=== PATIENT | female | born 2000 | race Caucasian/White ===

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

== ENCOUNTER 2020-01-22 20:09 | Emergency (ER) | payer MEDICAID, SELFPAY ==
[2020-01-22 20:10] VITALS: BP 106/57; PULSE 69; RESP 19; TEMP 36.5; O2SAT 100; BMI 17.6
--- NOTE | 2020-01-22 20:37 | ED.DCSUM_ITS ---
History of Present Illness Chief Complaint: Nausea/Vomiting Informant: Patient Onset: Days Context: Gradual Onset Current Severity: Mild Maximum Severity: Mild Narrative: Patient presents with a 3 to 4-day history of nausea and vomiting. She is currently 7 weeks . She is G2, P1, Ab0. She does report significant problems with nausea and vomiting during her first . She is not currently on any nausea medication at home. She denies abdominal cramping, spotting. Past Medical History - Allergies and Home Meds Allergies/Adverse Reactions: Allergies Penicillins Allergy (Verified 01/22/20 20:10) Rash Primary Care Physician: Ai Freeman ENDLESS TRACK VEHICLE MECHANIC, ENDLESS TRACK VEHICLE MECHANIC-C [Primary Care Provider] - Past Medical History: None Smoking Status: Never smoker Review of Systems General: Denies: Chills, Fever Eyes: Denies: Visual changes - bilaterally ENT: Denies: Bilateral ear pain Cardiovascular: Denies: Chest pain Respiratory: Denies: Dyspnea, Cough Gastrointestinal: Reports: Nausea, Vomiting. Denies: Abdominal pain, Diarrhea Genitourinary: Denies: Dysuria, Frequency Musculoskeletal: Denies: Extremity Pain Skin: Denies: Rash Neurological: Denies: Headache Hematologic: Denies: Easy bruising, Easy bleeding Allergy: Denies: Uticaria Physical Exam Vital Signs/Narrative: Vital Signs Temp Pulse Resp BP Pulse Ox 01/22/20 20:10 97.7 F L 69 19 H 106/57 L 100 Inital Vital Signs reviewed: Yes General: Well nourished, Well developed Head: Normocephalic ENT: Moist mucous membranes Neck: Supple Cardiovascular: Regular rate, Regular rhythm Respiratory: No distress, CTA bilaterally Abdomen: Soft, Nontender, Hypoactive bowel sounds Skin: Normal color Neurological: Alert, Oriented x3 Psychological: Normal affect Diagnostic/Tx/Re-eval Laboratory Results 01/22/20 21:05 Sodium 139 Potassium 3.6 Chloride 108 H Carbon Dioxide 26.0 Anion Gap 5 BUN 10 Creatinine 0.71 Estim Creat Clear Calc 90.39 Est GFR (MDRD) Af Amer 135 Est GFR (MDRD) Non-Af 111 BUN/Creatinine Ratio 14.1 Glucose 85 Calcium 9.5 - Medical Decision Making Patient was given a liter IV fluids along with 4 mg of IV Zofran. On repeat evaluation she reports feeling much improved. She is able to tolerate ice chips at this time. She began a prescription for Zofran that she will pick up man in the morning. ED Disposition - Plan for ED Patient: Disposition: Home or Assisted Living Diagnosis: Vomiting during Instructions: ED Vomiting (Adult) Prescriptions: Ondansetron [Zofran Odt] 4 mg PO Q8H PRN PRN #20 tab PRN Reason: Nausea Transmission Status: Pending to [id number] Referrals: Kierra Carlos DO [STAFF PHYSICIAN] - 1 Week if not improving
[2020-01-22] MEDS: 0.9% Normal Saline 1,000 ML 1000 ML IV (21:06)
[2020-01-22] MEDS: Ondansetron 4 MG/2 ML Vial IV (21:06)
[2020-01-22 21:29] LABS: Anion Gap 5 (5-15); BUN 10 mg/dL (7-18); BUN/Creat Ratio 14.1 RATIO (10-20); Calcium,Total 9.5 mg/dL (8.5-10.1); Chloride 108 mmol/L (98-107); Creatinine, Serum 0.71 mg/dL (0.55-1.02); EST Glomerular Filtration Rate 111 mL/min (>60); Est Glom Filt Rate - Afr Amer 135 mL/min (>60); Estimated Creatinine Clearance 90.39 ml/min; Glucose 85 mg/dL (74-106); Potassium 3.6 mmol/L (3.5-5.1); Sodium Level 139 mmol/L (136-145)
[2020-01-22 22:20] VITALS: BP 95/63; PULSE 59; RESP 17; O2SAT 100
== END 2020-01-22 22:22 | disposition home or self-care (01) ==
PROVIDERS: Emergency Provider Emergency Medicine; PCP Nurse Practitioner Family
DX: O21.9 Vomiting of pregnancy, unspecified (principal); Z3A.01 Less than 8 weeks gestation of pregnancy
CPT/HCPCS: 80048; 96361; 96374; 99283; J7030; A4216; J2405

== ENCOUNTER 2020-02-07 15:14 | Emergency (ER) | payer MEDICAID, SELFPAY ==
[2020-02-07 15:15] VITALS: BP 109/65; PULSE 66; RESP 16; TEMP 36.4; O2SAT 100; BMI 17.6
--- NOTE | 2020-02-07 15:25 | EKG12_ITS ---
Test Reason : Blood Pressure : / mmHG Vent. Rate : 059 BPM Atrial Rate : 059 BPM P-R Int : 132 ms QRS Dur : 078 ms QT Int : 406 ms P-R-T Axes : 057 078 062 degrees QTc Int : 401 ms Sinus bradycardia Otherwise normal ECG Confirmed by SARAH DAVIS, GERALDO ([id number]), subeditor UNURLY PALOMINO ([id number]) on 02/14/2020 10:26:05 AM Referred By: CARO Confirmed By:JOSE SMITH MD
--- NOTE | 2020-02-07 15:28 | NURSING ---
NO OLD EKGS
--- NOTE | 2020-02-07 15:40 | ED.DCSUM_ITS ---
- ER Visit Summary Date of Service: 02/07/20 Chief Complaint: Syncope History of Present Illness: The patient is a [address] Carlos and Dr. Freeman. She is a G2, P1 at 9 weeks of . She reports that she has had vomiting 5-6 times a day throughout her first trimester. She is states there is been no blood in her emesis. Patient reports that laying down today she began to feel nauseated. She sat up for 2 minutes to see if she was going to vomit and then stood to walk to the bathroom and had a syncopal episode. She reports that prior to this he did feel as though her heart was racing. She denies any chest pain shortness of breath. She is not diaphoretic. She has had this previously. Patient reports that she did hit her head. She has an occipital headache that is 5 out of 10 in severity. She denies extremity injury. She denies neck or back pain. She denies abdominal pain or diarrhea. She denies any vaginal bleeding or discharge. Her review of systems is otherwise negative. Physical Examination: Vitals: Stable. Afebrile. General: Well-nourished and well-developed. Head: Normocephalic atraumatic. Neck: Supple, no lymphadenopathy. No JVD. Nontender. Cardiovascular: Regular rate and rhythm. No murmurs. Respiratory: No respiratory distress. Clear to auscultation bilaterally. Abdominal: Soft, nontender, nondistended, normal bowel sounds. No guarding, rebound, or peritoneal signs. Back: Nontender. Extremities: Nontender, no edema. Skin: Normal color, no rash. Neurologic: Alert and oriented ?3. Cranial nerves II through XII are intact. Normal strength and sensation. Psych: Normal affect. Test Results: EKG is sinus bradycardia at 59. Normal intervals. No evidence of Brugada syndrome or HOCM. CBC is normal. Chem-7 is normal. Emergency Department Course and Treatment: Patient had an IV placed. She was given a liter of normal saline. Orthostatic vital signs were positive. heart tones could not be obtained. Bedside ultrasound showed a good hea rtbeat. Treatment Plan: Patient will be discharged prescription for Reglan. Instructed to follow-up with Dr. Fajardo in 1 to 2 days if not improving. Follow-up with her primary care physician in 3 to 5 days for another exam. Disposition: To home in improved and stable condition. Impression: 1. Syncope. 2. First trimester . 3. Vomiting. This note was generated with [employer] dictation software. It may contain incorrect words, spelling, and punctuation that were not noted in review of the chart prior to signing ED Disposition - Plan for ED Patient: Instructions: ED Hypotension, Orthostatic Prescriptions: Metoclopramide [Reglan] 10 mg PO 4X/DAY PRN #20 tab PRN Reason: Nausea Prescription Printed Referrals: Ai Freeman NP, COMPACTING MACHINE OPERATOR/TENDER-C [Primary Care Provider] - 3-5 Days Kierra Carlos DO [STAFF PHYSICIAN] - 1-2 Days if not improving
[2020-02-07] MEDS: 0.9% Normal Saline 1,000 ML 1000 ML IV (15:49)
[2020-02-07 16:01] LABS: Absolute Lymphocyte Count 2.29 X10^3/uL (0.83-4.51); Basophil# 0.04 X10^3/uL; Basophil% 0.4 % (0-1); Eosinophil# 0.05 X10^3/uL; Eosinophils% 0.5 % (0-5); Hematocrit 40.8 % (37-47); Hemoglobin 13.4 g/dL (12.0-15.0); Lymphocyte # 2.29 X10^3/ul (4.0); Lymphocyte % 24.7 % (19-41); Mean Corp Hgb Conc 32.8 g/dL (32-36); Mean Corpuscular Hgb 28.5 pg (27.0-32.0); Mean Corpuscular Volume 86.8 fL (81-99); Mean Platelet Vol. 10.2 fl (6.2-12.0); Monocyte# 0.83 X10^3/uL; Monocyte% 8.9 % (0-10); NRBC Flagged by Analyzer 0 % (0-5); Neutrophil # 6.03 X10^3/uL (2.7-7.7); Neutrophil % 65.1 % (47-70); Platelet Count 305 K/mm3 (150-450); RBC Distribution Width CV 13.3 % (11.6-14.6); RBC Distribution Width SD 42.3 fl (35.1-43.9); White Blood Count 9.3 K/mm3 (4.4-11.0)
[2020-02-07 16:12] LABS: Anion Gap 6 (5-15); BUN 7 mg/dL (7-18); Chloride 106 mmol/L (98-107); Creatinine, Serum 0.58 mg/dL (0.55-1.02); EST Glomerular Filtration Rate 139 mL/min (>60); Est Glom Filt Rate - Afr Amer 168 mL/min (>60); Estimated Creatinine Clearance 110.79 ml/min; Glucose 81 mg/dL (74-106); Potassium 3.6 mmol/L (3.5-5.1); Sodium Level 138 mmol/L (136-145)
[2020-02-07 16:21] VITALS: BP 90/65; BP 93/55; BP 93/65; PULSE 56; PULSE 61; PULSE 74
[2020-02-07] MEDS: 0.9% Normal Saline 1,000 ML 999 ML IV (17:42)
[2020-02-07 18:15] VITALS: BP 88/52; PULSE 51; RESP 14; O2SAT 100
[2020-02-07 19:37] VITALS: BP 97/63; PULSE 61; RESP 12; O2SAT 100
[2020-02-07 20:28] VITALS: BP 95/67; PULSE 59; RESP 13; O2SAT 100
== END 2020-02-07 20:29 | disposition home or self-care (01) ==
LOC: ED 16:32
PROVIDERS: Emergency Provider Emergency Medicine; PCP Nurse Practitioner Family
DX: O26.891 Other specified pregnancy related conditions, first trimester (principal); R55 Syncope and collapse; O21.9 Vomiting of pregnancy, unspecified; Z3A.09 9 weeks gestation of pregnancy
CPT/HCPCS: 80048; 85025; 93005; 96360; 96361; 99285; J7030

== ENCOUNTER 2020-08-09 17:20 | Outpatient (CLI) | payer MEDICAID, SELFPAY ==
[2020-08-09] VITALS (15 sets, daily range): BP systolic 101–108; BP diastolic 55–66; PULSE 62–92; TEMP 36.6–36.7; O2SAT 97–100; BMI 22.1
[2020-08-09] MEDS: Ringers, Lactated 1,000 ML IV.SOLN. 1000 ML IV (19:05)
[2020-08-09 19:28] LABS: Absolute Lymphocyte Count 2.32 X10^3/uL (0.83-4.51); Absolute Neutrophil Count 9.4 X10^3/uL (2.0-7.7); Basophil# 0.04 X10^3/uL; Basophil% 0.3 % (0-1); Eosinophil# 0.08 X10^3/uL; Eosinophils% 0.6 % (0-5); Hematocrit 33.6 % (37-47); Hemoglobin 10.3 g/dL (12.0-15.0); Lymphocyte # 2.32 X10^3/ul (0.83-4.51); Lymphocyte % 17.5 % (19-41); Mean Corp Hgb Conc 30.7 g/dL (32-36); Mean Corpuscular Hgb 24.6 pg (27.0-32.0); Mean Corpuscular Volume 80.4 fL (81-99); Mean Platelet Vol. 10.9 fl (6.2-12.0); Monocyte# 1.35 X10^3/uL; Monocyte% 10.2 % (0-10); NRBC Flagged by Analyzer 0 % (0-5); Neutrophil # 9.35 X10^3/uL (2.7-7.7); Neutrophil % 70.8 % (47-70); Platelet Count 291 K/mm3 (150-450); RBC Distribution Width CV 14.1 % (11.6-14.6); RBC Distribution Width SD 41.4 fl (35.1-43.9); Red Blood Count 4.18 M/mm3 (4.2-5.4); White Blood Count 13.2 K/mm3 (4.4-11.0)
[2020-08-09] MEDS: Betamethasone/Betamethasone 30 MG/5 ML Vial 12 MG IM (19:46)
[2020-08-09 20:21] LABS: ALB/GLOB Ratio 0.7 RATIO (0.9-2.4); AST(SGOT) 12 U/L (15-37); Alanine Aminotransfer ALT/SGPT 9 U/L (13-56); Albumin, Serum 2.7 g/dL (3.2-5.0); Alkaline Phosphatase 134 U/L (45-117); Anion Gap 8 (5-15); BUN 5 mg/dL (7-18); BUN/Creat Ratio 9.8 RATIO (10-20); Calcium,Total 9.1 mg/dL (8.5-10.1); Chloride 107 mmol/L (98-107); Creatinine, Serum 0.51 mg/dL (0.55-1.02); EST Glomerular Filtration Rate 161 mL/min (>60); Est Glom Filt Rate - Afr Amer 195 mL/min (>60); Estimated Creatinine Clearance 144.34 ml/min; Globulin 3.9 g/dL (2.2-4.2); Glucose 68 mg/dL (74-106); Potassium 3.5 mmol/L (3.5-5.1); Protein, Total 6.6 g/dL (6.4-8.2); Sodium Level 138 mmol/L (136-145)
[2020-08-09 21:23] LABS: Group B Strep DNA By PCR Negative (Negative); Internal Control PASS; Probe Check PASS; Specimen Processing Control PASS
[2020-08-09] MEDS: Lactated Ringers 1,000 ML 125 ML IV (22:35)
[2020-08-10] VITALS (7 sets, daily range): BP systolic 103–108; BP diastolic 61–63; PULSE 65–97; TEMP 36.2–36.7; O2SAT 97–98
[2020-08-10] MEDS: Lactated Ringers 1,000 ML 125 ML IV (06:49)
--- NOTE | 2020-08-10 11:34 | OB.TRI.HP_ITS ---
HPI - General HPI Narrative TRACY SILVERMAN, is a 20 F who presents with difficulty taking a deep breath. Also she has a mild headache. Since arriving she has started to feel some ctxs. Maternal Data Information Final CHRIS: 09/07/20 [facility] Medical History (Updated 08/10/20 @ 11:[address] Jacob Washburn MD) depression Home Medications vit,[id number] [Prenatabs FA] 1 tab PO DAILY 05/10/18 [History Last Taken 08/09/20 08:00] ferrous sulfate 325 mg PO QODAY 08/09/20 [History Last Taken 08/08/20 08:00] ondansetron HCl [Zofran] 4 mg PO Q6H PRN 08/09/20 [History Last Taken Unknown] Allergy/AdvReac Type Severity Reaction Status Date / Time Penicillins Allergy Rash Verified 08/09/20 17:45 sertraline [From Zoloft] AdvReac Other Verified 08/09/20 23:24 Social History Smoking Status: Never smoker History Elective abortions Hx Para 1 Spontaneous abortions Hx # Term Pregnancies Ectopic pregnancies Hx # Pregnancies Multiple births # of living children NST FHR Rate Baby A Baseline: 120 Variability:: Moderate Accelerations:: 15 x 15 Decelerations:: Variable NST Reactive:: Yes Uterine Activity:: Irregular (prior to discharge) Assessment & Plan (1) Threatened labor, antepartum: COMMENT: 35&6 weeks PLAN: Patient with some cervical change overnight thus was monitored for 12 hours. Cervix was stable at 4.5-5cm prior to discharge. She received BMZ x1 on admission & will f/u for 2nd dose. GBS negative S/p IV hydration & labs Reactive NST and reassuring EFM Resp - no SOB/CP, normal pulse ox Headache - improved, normal BP & labs
== END 2020-08-10 08:20 | disposition home or self-care (01) ==
LOC: WPOUT 17:29 → WP 17:30
PROVIDERS: PCP Nurse Practitioner Family; Referring Provider Obstetrics & Gynecology; Visit Provider Obstetrics & Gynecology
DX: O47.03 False labor before 37 completed weeks of gestation, third trimester (principal); Z3A.35 35 weeks gestation of pregnancy; R51.9 Headache, unspecified
CPT/HCPCS: 96360; 96361 ×2; 36415; 59025; 59050; 80053; 85025; 86850; 86900; 86901; 87081; 87426; 87653; 96372; J7120; J0702

== ENCOUNTER 2020-08-10 18:05 | Outpatient (CLI) | payer MEDICAID, SELFPAY ==
[2020-08-09 17:30] VITALS: BMI 22.1
[2020-08-10 18:20] VITALS: BMI 22.7
[2020-08-10 18:43] VITALS: TEMP 36.3
[2020-08-10 18:44] VITALS: BP 100/59; PULSE 88; O2SAT 99
[2020-08-10] MEDS: Betamethasone/Betamethasone 30 MG/5 ML Vial 12 MG IM (19:00)
--- NOTE | 2020-08-11 16:57 | OB.TRI.NOTE ---
HPI - General HPI Narrative TRACY SILVERMAN, is a 20 F who presents for BMZ #2. PFSH PFSH Medical History (Updated 08/11/20 @ 16:[address] Jacob Washburn MD) depression Home Medications vit,[id number] [Prenatabs FA] 1 tab PO DAILY 05/10/18 [History Last Taken 08/10/20 10:00] ferrous sulfate 325 mg PO QODAY 08/09/20 [History Last Taken 08/10/20 10:00] ondansetron HCl [Zofran] 4 mg PO Q6H PRN 08/09/20 [History Last Taken 08/10/20 10:00] Allergy/AdvReac Type Severity Reaction Status Date / Time Penicillins Allergy Rash Verified 08/10/20 18:21 sertraline [From Zoloft] AdvReac Other Verified 08/10/20 18:21 Social History Smoking Status: Never smoker History Elective abortions Hx Para 1 Spontaneous abortions Hx # Term Pregnancies Ectopic pregnancies Hx # Pregnancies Multiple births # of living children NST FHR Rate Baby A Baseline: 125 Variability:: Moderate Accelerations:: 15 x 15 Decelerations:: None NST Reactive:: Yes Uterine Activity:: Rare Assessment & Plan (1) Threatened labor, antepartum: COMMENT: 36 weeks PLAN: BMZ#2 reactive NST Stable cervical exam per RN
== END 2020-08-10 19:05 | disposition home or self-care (01) ==
LOC: WPOUT 18:10 → WP 18:11
PROVIDERS: PCP Nurse Practitioner Family; Visit Provider Obstetrics & Gynecology
DX: O60.03 Preterm labor without delivery, third trimester (principal); Z3A.36 36 weeks gestation of pregnancy
CPT/HCPCS: 96372; 59025; 59050; 99218; G0378; J0702

== ENCOUNTER 2020-08-13 02:05 | Inpatient (IN) | payer MEDICAID, SELFPAY ==
[2020-08-12 11:02] LABS: ROM Internal Control Test YES-OK TO RESULT pt. (Internal QC); ROM Patient Test Negative (Negative)
[2020-08-12 11:10] VITALS: BP 107/62; PULSE 70
--- NOTE | 2020-08-12 17:54 | OB.TRI.HP_ITS ---
HPI - General HPI Narrative TRACY SILVERMAN, is a 20 F at 36.2 weeks gestation who presents in triage for possible rupture of membranes. She was seen over the weekend to r/o labor. She received two doses of Celestone IM. Patient reports feeling a gush of fluid this morning. Positive for irregular contractions. Positive mo vement. Denies any vaginal bleeding. Maternal Data Information CHRIS Calculator Estimated Delivery Date Method Current WG Current Estimate 09/07/20 Manual 36w 2d PFSH PFSH Medical History depression Home Medications vit,[id number] [Prenatabs FA] 1 tab PO DAILY 05/10/18 [History Last Taken 08/10/20 10:00] ferrous sulfate 325 mg PO QODAY 08/09/20 [History Last Taken 08/10/20 10:00] ondansetron HCl [Zofran] 4 mg PO Q6H PRN 08/09/20 [History Last Taken 08/10/20 1 0:00] Allergy/AdvReac Type Severity Reaction Status Date / Time Penicillins Allergy Rash Verified 08/12/20 11:29 sertraline [From Zoloft] AdvReac Other Verified 08/12/20 11:29 Social History Smoking Status: Never smoker History Elective abortions Hx Para 1 Spontaneous abortions Hx # Term Pregnancies Ectopic pregnancies Hx # Pregnancies Multiple births # of living children ROS Eyes Eyes: Denies blurry vision Cardiovascular Cardiovascular: Reports none; Denies chest pain at rest, chest pain with activity or dizziness Respiratory/Chest Respiratory/Chest: Denies cough or dyspnea Gastrointestinal Gastrointestinal: Reports none and other; Denies diarrhea or vomiting Genitourinary Genitourinary: Denies dysuria Musculoskeletal Musculoskeletal: Reports none Integumentary Integumentary: Reports none; Denies rash Neurologic Neurologic: Denies dizziness, headache(s) or other visual disturbances Psychiatric Psychiatric: Reports none Physical Exam Const alert and no apparent distress General Appearance: cooperative Orientation / Consciousness: awake Exam Limitations: no limitations HEENT normocephalic Eyes General Eye: normal appearance of both eyes Neck full ROM Chest inspection of chest normal Resp normal respiratory effort and normal air movement Effort and Inspection: symmetric chest movement Auscultation: clear to auscultation bilaterally Cardio regular rate GI soft to palpation, non-tender and non-distended Inspection: and other Back/Spine normal ROM Extremity full ROM, normal capillary refill and no calf tenderness Skin no rashes or lesions noted Neuro oriented x3 and CN's II-XII intact bilaterally Psych mental status grossly normal NST FHR Rate Baby A Baseline: 130 Variability:: Moderate Accelerations:: 15 x 15 Decelerations:: None NST Reactive:: Yes FHR Category:: Category I Uterine Activity:: Irregular that palpate mild and relaxed in between Assessment & Plan (1) Leakage of amniotic fluid: (2) 36 weeks gestation of : PLAN: ROM plus collected and sent- negative Category 1 tracing, NST reactive CE unchanged from last weekend D/C home Patient to keep scheduled appointment this week in office Dr. Han notified and is collaborating physician
[2020-08-12 23:55] VITALS: PULSE 69; O2SAT 97
[2020-08-12 23:56] VITALS: BMI 22.3
[2020-08-12 23:58] VITALS: BP 106/67; PULSE 69; TEMP 37.2
[2020-08-13] VITALS (35 sets, daily range): BP systolic 95–132; BP diastolic 46–83; PULSE 49–79; RESP 16; TEMP 36.2–36.8; O2SAT 98–100
[2020-08-13] MEDS: Lactated Ringers 500 ML 999 ML IV (02:39)
[2020-08-13 02:44] LABS: Absolute Lymphocyte Count 2.58 X10^3/uL (0.83-4.51); Absolute Neutrophil Count 11.1 X10^3/uL (2.0-7.7); Basophil# 0.03 X10^3/uL; Basophil% 0.2 % (0-1); Eosinophil# 0.06 X10^3/uL; Eosinophils% 0.4 % (0-5); Hematocrit 32.3 % (37-47); Hemoglobin 9.8 g/dL (12.0-15.0); Lymphocyte # 2.58 X10^3/ul (0.83-4.51); Lymphocyte % 16.1 % (19-41); Mean Corp Hgb Conc 30.3 g/dL (32-36); Mean Corpuscular Hgb 24.6 pg (27.0-32.0); Mean Platelet Vol. 11.4 fl (6.2-12.0); Monocyte# 2.05 X10^3/uL; Monocyte% 12.8 % (0-10); NRBC Flagged by Analyzer 0 % (0-5); Neutrophil # 11.13 X10^3/uL (2.7-7.7); Neutrophil % 69.3 % (47-70); POSITIVE DIFFERENTIAL YES; Platelet Count 269 K/mm3 (150-450); RBC Distribution Width CV 14.2 % (11.6-14.6); RBC Distribution Width SD 41.7 fl (35.1-43.9); Red Blood Count 3.99 M/mm3 (4.2-5.4); White Blood Count 16.1 K/mm3 (4.4-11.0)
[2020-08-13 02:46] LABS: Differential Indicated SCAN CRITERIA MET
[2020-08-13] MEDS: Lactated Ringers 1,000 ML 200 ML IV ×2 (03:10→07:50)
[2020-08-13 03:23] LABS: Differential Comment SCANNED
[2020-08-13] MEDS: fentaNYL-bupivacaine (epidural) 100 ML BAG EPIDURAL ×2 (03:45→07:50)
--- NOTE | 2020-08-13 06:59 | HP.PCM.OB_ITS ---
HPI - General General Date of Admission: 08/13/20 HPI Narrative TRACY SILVERMAN, is a 20 year old F at 36.3 weeks gestation who presents with contractions every 1-3 minutes. The contractions became more frequent and painful last night. Denies any loss of fluid or vaginal bleeding. Positive movement. Patient was here in L&D over the weekend to r/o PTL and received Celestone x 2 doses. Maternal Data Information CHRIS Calculator Estimated Delivery Date Method Current WG Current Estimate 09/07/20 Manual 36w 3d PFSH PFSH Medical History depression Home Medications vit,[id number] [Prenatabs FA] 1 tab PO DAILY 05/10/18 [History Last Taken 08/10/20 10:00] ferrous sulfate 325 mg PO QODAY 08/09/20 [History Last Taken 08/10/20 10:00] ondansetron HCl [Zofran] 4 mg PO Q6H PRN 08/09/20 [History Last Taken 08/10/20 10:00] Allergy/AdvReac Type Severity Reaction Status Date / Time Penicillins Allergy Rash Verified 08/12/20 11:29 sertraline [From Zoloft] AdvReac Other Verified 08/12/20 11:29 Social History Smoking Status: Never smoker History Elective abortions Hx Para 1 Spontaneous abortions Hx # Term Pregnancies Ectopic pregnancies Hx # Pregnancies Multiple births # of living children NST FHR Rate Baby A Baseline: 125 Variability:: Moderate Accelerations:: 15 x 15 Decelerations:: None NST Reactive:: Yes FHR Category:: Category I Uterine Activity:: 1-3 minutes- palpate moderate and relaxed in between ROS Eyes Eyes: Denies blurry vision, change in vision or spots in vision ENT HEENT: Denies dizziness or headache(s) Cardiovascular Cardiovascular: Denies abdominal pain, chest pain or dyspnea Respiratory/Chest Respiratory/Chest: Denies cough, dyspnea, shortness of breath at rest or shortness of breath with exertion Gastrointestinal Gastrointestinal: Denies abdominal pain, diarrhea or vomiting Genitourinary Genitourinary: Denies change in urinary stream, difficulty urinating or dysuria Musculoskeletal Musculoskeletal: Reports none Integumentary Integumentary: Denies rash Neurologic Neurologic: Denies dizziness, headache(s), memory loss or weakness Psychiatric Psychiatric: Reports none Vital Signs Vital Signs Vital Signs: 08/12/20 11:10 08/12/20 23:55 08/12/20 23:58 Temperature 98.9 F Temperature Source Temporal Pulse Rate 70 69 69 Blood Pressure 107/62 106/67 BP Systolic 107 106 BP Diastolic 62 67 Pulse Ox 97 08/13/20 03:21 08/13/20 03:26 08/13/20 03:27 Temperature Temperature Source Pulse Rate 66 65 63 Blood Pressure 115/78 BP Systolic 115 BP Diastolic 78 Pulse Ox 98 98 08/13/20 03:30 08/13/20 03:31 08/13/20 03:36 Temperature Temperature Source Pulse Rate 67 64 66 Blood Pressure 123/83 H BP Systolic 123 BP Diastolic 83 Pulse Ox 100 99 08/13/20 03:38 08/13/20 03:41 08/13/20 03:42 Temperature Temperature Source Pulse Rate 68 77 64 Blood Pressure 118/63 115/68 BP Systolic 118 115 BP Diastolic 63 68 Pulse Ox 98 08/13/20 03:45 08/13/20 03:46 08/13/20 03:50 Temperature 98.2 F Temperature Source Temporal Pulse Rate 63 65 Blood Pressure 115/71 BP Systolic 115 BP Diastolic 71 Pulse Ox 98 08/13/20 03:51 08/13/20 03:55 08/13/20 03:56 Temperature Temperature Source Pulse Rate 59 L 59 L 60 Blood Pressure 106/61 104/56 L BP Systolic 106 104 BP Diastolic 61 56 Pulse Ox 98 98 08/13/20 04:00 08/13/20 04:01 08/13/20 04:06 Temperature Temperature Source Pulse Rate 60 59 L 59 L Blood Pressure 106/58 L 108/57 L BP Systolic 106 108 BP Diastolic 58 57 Pulse Ox 98 98 08/13/20 04:41 08/13/20 05:11 08/13/20 06:20 Temperature 97.2 F L Temperature Source Temporal Pulse Rate 49 L 49 L 71 Blood Pressure 101/61 101/63 100/57 L BP Systolic 101 101 100 BP Diastolic 61 63 57 Pulse Ox 100 Weight Weight: 126 lb Body Mass Index (BMI) 22.3 Physical Exam Const alert, oriented x3 and no apparent distress General Appearance: cooperative Orientation / Consciousness: awake Exam Limitations: no limitations HEENT normocephalic Head and Scalp: normal to inspection Eyes General Eye: normal appearance of both eyes Neck full ROM and no lymphadenopathy Lymph Lymphatic: no lymphadenopathy noted Chest inspection of chest normal Resp normal respiratory effort, normal air movement and clear to auscultation bilaterally Effort and Inspection: able to speak in complete sentences and symmetric chest movement Cardio regular rate and regular rhythm GI normal to inspection, nondistended, normoactive bowel sounds Narrative: CE- Manual OB Exam: presentation cephalic, dilated 6, effaced 70 and station - 3 Amniotic Fluid: other bulging bag Back/Spine normal ROM Extremity full ROM and no calf tenderness Skin no rashes or lesions noted General Skin Exam: no breakdown Neuro oriented x3 and CN's II-XII intact bilaterally Psych mental status grossly normal and thought process normal Labs Labs Labs: Blood Type O POSITIVE Antibody Screen NEGATIVE Hct 32.3 % (37-47) L Hgb 9.8 g/dL (12.0-15.0) L C.trachomatis DNA (PCR) Negative (Negative) Group B Strep DNA Negative (Negative) Rhogam given: No Assessment & Plan (1) 36 weeks gestation of : (2) Spontaneous onset of labor: PLAN: Admit to labor and delivery IV fluids per policy Epidural when indicated A.R.OM for clear amount of fluid IUPC placed without difficulty CE Cat. 1 tracing, NST reactive Start Pitocin IV and titrate per policy Anticipate Dr. Han notified of admission and is collaborating physician
[2020-08-13] MEDS: Oxytocin 30 units/NS 500 ml 30 UNITS/500 ML IV.SOLN IV (07:17)
[2020-08-13] MEDS: Oxytocin 30 units/NS 500 ml 30 UNITS/500 ML IV.SOLN 334 UNITS IV (08:18)
--- NOTE | 2020-08-13 08:28 | EX.PCM.OBRPT ---
Assessment & Plan (1) (spontaneous vaginal delivery): (2) 36 weeks gestation of : Maternal Data Information CHRIS Calculator Estimated Delivery Date Method Current WG Current Estimate 09/07/20 Manual 36w 3d Vaginal Delivery Maternal Presentation Maternal Presentation: Active Labor Operative Information Date of Procedure: 08/13/20 Pre-Operative Diagnosis: spontaneous labor Post-Operative Diagnosis: , live male Surgery / Procedure Performed: Spontaneous Vaginal Delivery Type of Anesthesia: Epidural Drain: [place] to straight drain Estimated Blood Loss: 200 Time of Delivery: 08:15 Findings Description of Procedure: Patient complete dilation and +2 station. Pushing well with contractions. Infant head delivered with minimal maternal effort over intact perineum. Nuchal cord around neck x 1 easily reduced. Anterior shoulder delivered followed by posterior and remainder of body. Vigorous male placed on maternal abdomen and was attended to by nursing staff. 3 vessel cord clamped and cut after 3 minute delay. Pitocin IV started for active management of the third stage of labor. Placenta delivered spontaneous and intact. After inspection of vagina and perineum all is intact. EBL 200 cc and APGARS 8/9 Patient and infant bonding well. Dr. Washburn notified of delivery and is on unit Presentation: BARBIE Amniotic Membrane Rupture Type: Artificial Time of Membrane Rupture: 0645 Amniotic Fluid Description: Clear Placental Delivery Description: Spontaneous Placenta Disposition: [facility] Cord Vessel Description: 3 Vessels Cord Entanglement: Around neck x 1, loose Nuchal Cord Compression: Without compression A Gender: Male (1 minute): 8 (5 minute): 9 Delayed Cord Clamping: Yes
[2020-08-13 11:33] LABS: Pathologist Review Reviewed
[2020-08-14 00:44] VITALS: BP 97/40; PULSE 60; RESP 18; TEMP 36.5
[2020-08-14 04:49] VITALS: BP 104/55; PULSE 65; RESP 18
[2020-08-14 07:30] VITALS: BP 89/44; PULSE 58; RESP 16; TEMP 36.1
--- NOTE | 2020-08-14 07:30 | NURSING ---
Patient denies lightheadedness or dizziness. Patient laying on side when BP was taken. Baseline is normally on the lower side for BP.
--- NOTE | 2020-08-14 08:23 | PCM.PN.OB ---
Subjective Subjective Pain well controlled, average lochia. Objective Data Objective Data Vital Signs: Vital Signs Temp Pulse Resp BP Pulse Ox 97 F L 58 L 16 89/44 L 99 08/14/20 07:30 08/14/20 07:30 08/14/20 07:30 08/14/20 07:30 08/13/20 09:57 Oxygen Delivery Method Room Air Weight: 57.153 kg Body Mass Index (BMI) 22.3 Intake & Output: Intake and Output for Last 24 Hours 08/12/20 08/13/20 08/14/20 23:59 23:59 23:59 Intake Total 2451.76 / 2451.76 Output Total 2250 / 2250 Balance 201.76 / 201.76 Lab / Micro Data Result Diagrams: 08/13/20 02:25 Labs: Laboratory Results - last 24 hr 08/13/20 02:25 Diff Path Review Reviewed Physical Exam Const alert and no apparent distress Narrative: Fundus firm, below umbilicus. Assessment & Plan (1) labor with delivery: PLAN: PPD#1 s/p at 36 weeks doing well, desire d/c home today if ok w/ peds
[2020-08-14 14:32] VITALS: BP 92/54; PULSE 71; RESP 16; TEMP 36.2
[2020-08-14 21:22] VITALS: BP 106/54; PULSE 80; RESP 16; TEMP 36.4
[2020-08-15 03:00] VITALS: BP 95/48; PULSE 84; RESP 16; TEMP 36.1
--- NOTE | 2020-08-15 08:41 | PCM.PROGNOTE ---
Subjective Subjective Doing well per patient and nursing staff. Ambulating and taking PO without difficulty. Voiding and passing flatus. Pain controlled. , services for assistance. Denies headache, visual changes, chest pain, shortness of breath, leg pain or increased bleeding. Lochia normal. Planning D/C home today. Pain controlled. Objective Data Objective Data Vital Signs: Vital Signs Temp Pulse Resp BP Pulse Ox 97.0 F L 84 16 95/48 L 99 08/15/20 03:00 08/15/20 03:00 08/15/20 03:00 08/15/20 03:00 08/13/20 09:57 Oxygen Delivery Method Room Air Weight: 126 lb Body Mass Index (BMI) 22.3 Intake & Output: Intake and Output for Last 24 Hours 08/13/20 08/14/20 08/15/20 23:59 23:59 23:59 Intake Total 2451.76 / 2451.76 Output Total 2250 / 2250 Balance 201.76 / 201.76 Lab / Micro Data Result Diagrams: 08/13/20 02:25 Physical Exam Const alert and oriented x3 General Appearance: cooperative Orientation / Consciousness: awake, oriented to person, oriented to place and oriented to time Exam Limitations: no limitations HEENT normocephalic Head and Scalp: normal to inspection, normocephalic and atraumatic Face and Sinus: normal facial exam Eyes General Eye: normal appearance of both eyes Neck full ROM Chest Chest: symmetrical chest wall rise Resp normal respiratory effort and normal air movement Auscultation: clear to auscultation bilaterally Cardio regular rate, regular rhythm, S1 normal heart sound, S2 normal heart sound, no murmurs, no rub, no gallops and no clicks GI normal to inspection, nondistended, normoactive bowel sounds and non-tender GI Narrative: fundus firm 3 below U appearance of the vagina normal Bladder / Kidney Exam: no CVA tenderness Back/Spine normal ROM Extremity normal to inspection, full ROM, no calf tenderness and no pedal edema Extremity Narrative: Agusto's negative bilaterally Skin no rashes or lesions noted Neuro oriented x3, CN's II-XII intact bilaterally and moves all extremities Sensorium / Orientation: awake, alert and oriented to person Motor Exam: clonus absent Deep Tendon Reflexes: Rt Patellar (L4): 2+ and Lt Patellar (L4): 2+ Assessment & Plan Assessment/Plan (1) (spontaneous vaginal delivery): PLAN: 1) Routine PP and instructions 2) Pain management, will use OTC medication at home, declines prescription 3) Hgb stable 4) Follow up in 2 weeks for virtual visit and 6 week PP visit 5) D/C home
--- NOTE | 2020-08-15 08:43 | PCM.DC ---
Discharge Instructions Diet Discharge Diet: No restrictions Activity May resume sexual activity in: 6 weeks Weight Bearing Status: Full weight bearing Dressing / Incision Call your doctor if your incision/area has: Sudden Increased Bleeding, Increased Pain/ Swelling, Increased Redness and Foul Smelling Discharge Call your doctor if you observe: Fever of 101 or Higher, Inability to urinate, Inability to have a bowel movement, Using more than 1 pad per hour, Shortness of breath, Dizziness, Fainting spells, Chest pain, Increased palpitations (irregular heartbeat), Calf discomfort and Uncontrolled pain Suture Line Care: Avoid Pulling/Pushing Remove Dressing in: 1 week Cleanse incision/area with: Keep Dressing Clean & Dry Follow Up Care Test Results: Test results from this visit will be discussed in further detail at your follow-up appointment, if applicable. Follow up in 2 weeks for virtual visit and 6 weeks for PP visit. Discharge Plan Admission Admit Date/Time: 08/13/20 02:05 Primary Reason for Your Visit: labor, Attending Provider: Pam Yarbrough Primary Care Provider: Ai Freeman NP Instructions Patient Instructions: After a Vaginal , : Caring for Yourself Discharge Orders/Prescriptions Prescriptions: New Dermoplast (with menthol) 20-0.5 % Aerosol 1 applic topical TID PRN PRN (Reason: for perineal discomfort) Qty: 0 RF: 0 acetaminophen 500 mg Tablet 1,000 mg PO Q6H PRN PRN (Reason: Pain 1-10 Or Fever) Qty: 0 RF: 0 ibuprofen 600 mg Tablet 600 mg PO Q6H PRN PRN (Reason: Pain Score 1-3) Qty: 0 RF: 0 Continued Prenatabs FA 1 TABLET tablet 1 tab PO DAILY RF: 0 Discontinued ondansetron HCl [Zofran] 4 mg Tablet 4 mg PO Q6H PRN (Reason: Nausea) RF: 0 ferrous sulfate 325 mg (65 mg iron) Capsule, Extended Release 325 mg PO QODAY RF: 0 Referrals / Follow Up: Pam Yarbrough CNM [Certified Nurse Commercial Census Taker] - (2 weeks for virtual visit, 6 weeks PP visit) Ai Freeman NP, LIFE SKILLS TRAINER-C [Primary Care Provider] - Disposition Disposition (needs filled in before D/C Order can be placed): Home, Self Care
[2020-08-15 09:29] VITALS: BP 93/45; PULSE 80; RESP 16; TEMP 36.5
[2020-08-15 15:18] VITALS: BP 102/50; PULSE 111; RESP 16; TEMP 36.9
--- NOTE | 2020-08-15 16:00 | CASEMGMT ---
Social Work Assessment Labor and Delivery Unit Patient Address: [address] [place] [address] [id number], [place] [address] Phone number: [phone] Date of Referral: 08.13.2020 Time of Referral: 1938 Referred By: Pam Yarbrough CNM Date of Intervention: 08.15.2020 Reason for Referral: maternal history of depression. History obtained from: medical records and mother of baby (MOB) Keshia Farrar; Father of baby (FOB) Cliff Gray present for part of conversation. Household composition: MOB, FOB, and older child in an apartment. Home situation reported as safe and adequate. Patient's parent/guardian status: MOB is a 20 year old single female, involved in a committed relationship with the FOB. MOB and FOB now have 2 children together. Minor children include: Hugo (born 05.10.2018) and Jose Martin Gray (born 08.13.2020). During private conversation with MOB, MOB denies any form of abuse in this relationship. Medical History: MOB is G2, P1 to 2 after delivering Jose Martin. No reported issues with care. Delivery of Jose Martin at 36 weeks gestation. Birthweight 6 pounds 3 ounces. Apgars 8 and 9 at 1 and 5 minute of life. Educational Status: High school. No reported issues with reading, writing or learning comprehension. Financial Status: FOB is employed. 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 Supplies: MOB reports to have all needed supplies. Childcare/Caregiver(s): MOB and FOB. Report to have babysitting for older child and will go to same sitter. Transportation: No issues. Reported as adequate. Programs/Agencies Involved: S for medical, active with [facility], and reported to be working with [facility] for Hugo. Agrees to referral for S for Jose Martin, as as well as a nurse visit through the [facility]. Children Services/Legal Issues: Denies past or present. Behavioral Health Issues: Mental Health History: Maternal history of depression, anxiety, and depression. MOB denies any thoughts of suicide, past or present. [place] depression screen a score of 7 this date. MOB reports history of Counseling and reports willingness to return if needed in the future. Substance Use History: MOB denies any substance jeffrey history for self, and denies any use in . states to have a family history of such, which as led the MOB to make decision to stay away from substances. Family History: Record indicates MOB's father and sister with history of drug use issues. MOB's father reportedly by heroin overdoes in 2018. MOB reports to this telegraphic typewriter operator chief that MOB's sister has history of substance use. Chart indicates MOB's sister also has history of borderline personality disorder. MOB's mother with history of bipolar disorder. Drug Screens: Maternal drug screen negative on 02.02.2020. No farther testing fro mom or baby. Family/Social Stressors: 36 premature delivery. MOB endorses had a lot of worry leading up to delivery, worrying about baby. Support Systems: MOB reports FOB is a strong support, in addition to FOBs family, MOB's aunt (who is helping with the older child currently), and MOB's sister is also a support. Depression/Shaken Baby/Safe Sleeping : Information given on all topics. ASSESSMENT: Met with MOB and FOB in room, introducing to self and social work role. MOB and FOB receptive to social work visit as evidenced by engaging in conversation, smiling, and pleasant demeanor. MOB reports to have all needed supplies to care for baby. FOB reports will be off work until next week to help at home. MOB discussed past history of depression, and reports awareness to be at higher risk for this again. MOB reports willingness to talk to FOB and health care providers should symptoms arise and become distressing. MOB accepting of information on mood and anxiety disorders, as well as receptive to accepting referrals for parent support in the community. MOB reports desire to have resources as this can help the baby. MOB denies any needs at home going. Eye contact good, mood and affect appropriate and congruent to content. No concerns voiced by nursing staff regarding parent/child interactions for bonding. PLAN: MOB and baby to home. Resources for [facility] provided, as well as mood an anxiety disorder packet, handouts on safe sleeping and shaken baby prevention. MOB agrees to [facility] referral and nursing visit program for baby. No other services requested or indicated. -JEAN PAUL Massey, BRAND STRATEGIST
[2020-08-15 19:47] VITALS: BP 101/45; PULSE 98; RESP 16; TEMP 36.6
--- NOTE | 2020-08-19 11:35 | CASEMGMT ---
Social Work Labor and Delivery Faxed [facility] [employer] referral form, signed by the mother of baby prior to discharge, to [facility]. Faxed [place] Nurse visit form to [facility], per MOB's stated consent prior to discharge. No other services requested or indicated. -ELOISA Massey, SAMPLE CLERK
== END 2020-08-15 20:20 | disposition home or self-care (01) | DRG 560 ==
LOC: WPOUT 02:10 → WP 02:10
PROVIDERS: Admitting Provider Advanced Practice Midwife; PCP Nurse Practitioner Family; Referring Provider Advanced Practice Midwife; Visit Provider Advanced Practice Midwife
DX: O60.14X0 Preterm labor third trimester with preterm delivery third trimester, not applicable or unspecified (principal); O69.81X0 Labor and delivery complicated by cord around neck, without compression, not applicable or unspecified; Z3A.36 36 weeks gestation of pregnancy; Z37.0 Single live birth
CPT/HCPCS: 59025; 59050; 84112; 85025; 86850; 86900; 86901; 96372; 99218; J7120; G0378; J0702

== ENCOUNTER 2020-08-16 22:04 | Emergency (ER) | payer MEDICAID, SELFPAY ==
[2020-08-12 23:56] VITALS: BMI 22.3
[2020-08-16 22:05] VITALS: BP 116/68; PULSE 96; RESP 15; TEMP 36.4; O2SAT 96; BMI 26.5
--- NOTE | 2020-08-16 23:17 | ED.VIS.FEGU ---
HPI HPI - Female History of Present Illness Chief Complaint: Female C/O Informant: patient Narrative Narrative: Patient presents secondary to concern for possible uterine prolapse. She had a vaginal delivery of a baby 3 days ago. She was discharged from the hospital yesterday. Patient states that she feels like she has tissue protruding from her vagina. She called her AUTOMATIC TELLER MACHINE SERVICER geothermal production manager and was advised to come to the emergency room. She has not had much bleeding. PFSH PFSH Medical History depression Home Medications Prenatabs FA 1 tab PO DAILY 05/10/18 [History Last Taken 08/10/20 10:00] acetaminophen 1,000 mg PO Q6H PRN PRN #0 tab 08/15/20 [Rx Last Taken Unknown] benzocaine-menthol [Dermoplast (with menthol)] 1 applic TOPICAL TID PRN PRN #0 g 08/15/20 [Rx Last Taken Unknown] ibuprofen 600 mg PO Q6H PRN PRN #0 tab 08/15/20 [Rx Last Taken Unknown] Allergy/AdvReac Type Severity Reaction Status Date / Time Penicillins Allergy Rash Verified 08/16/20 22:08 sertraline [From Zoloft] AdvReac Other Verified 08/16/20 22:08 Social History Smoking Status: Never smoker ROS ROS ED Constitutional Constitutional ED: Denies chills or fever(s) Eyes Eyes: Denies change in vision ENT ENT ED: Denies sore throat Cardiovascular Cardiovascular: Denies chest pain Respiratory/Chest Respiratory/Chest: Denies cough or dyspnea Gastrointestinal Gastrointestinal: Denies abdominal pain, diarrhea, nausea or vomiting Genitourinary Genitourinary ED: Denies dysuria Musculoskeletal Musculoskeletal: Denies back pain Integumentary Denies rash Neurologic Neurologic: Denies headache(s) or weakness Psychiatric Psychiatric: Denies anxiety or depression Allergic/Immunologic Allergic/Immunologic ED: Denies urticaria EXAM Physical Exam Const Vital Signs: 08/16/20 22:05 Temperature 97.6 F L Temperature Source Temporal Pulse Rate 96 Respiratory Rate 15 Blood Pressure 116/68 Blood Pressure Mean 84 Pulse Ox 96 Oxygen Delivery Method Room Air Positive well nourished and well developed General Appearance ED: well developed HEENT Reports normocephalic and head/scalp atraumatic Eyes PERRL and EOMs intact bilaterally Neck supple Chest Wall inspection of chest normal and palpation of chest normal Resp normal respiratory effort and clear to auscultation bilaterally Cardio regular rate and regular rhythm GI normal to inspection, nondistended, normoactive bowel sounds Palpation: soft Narrative: No obvious protrusion at the vaginal orifice. Single digit bimanual examination performed. No masses appreciated in the vaginal vault. Extremity normal to inspection Neuro oriented x3 and no sensory deficits noted Sensorium / Orientation: alert Motor Exam: strength 5/5 throughout Psych mental status grossly normal Skin no rashes or lesions noted MDM MDM Treatment and Re-Evaluation Comments:: I spoke with Pam Yarbrough, geothermal production manager who had delivered patient and on-call tonight. No need for ultrasound at this time. She did have initial concern that the patient may have prolapse of her cervix which will sometimes occur after delivery. At this time while laying supine for exam there is no evidence of this. I did explain to the patient that when standing upright she may notice more fullness in that area. She is advised to monitor symptoms this weekend and call her AUTOMATIC TELLER MACHINE SERVICER on Wednesday or Wednesday with an update. She is scheduled for follow-up in 6 weeks but advised if she continues to have symptoms will likely need to be seen sooner. Discharge Plan Triage Chief Complaint: Female C/O ED Provider: Abigail Hopkins Dx/Rx/DC Orders Clinical Impression: Pelvic pain Instructions: After a Vaginal Prescriptions: No Action Prenatabs FA 1 TABLET tablet 1 tab PO DAILY RF: 0 Dermoplast (with menthol) 20-0.5 % Aerosol 1 applic topical TID PRN PRN (Reason: for perineal discomfort) Qty: 0 RF: 0 acetaminophen 500 mg Tablet 1,000 mg PO Q6H PRN PRN (Reason: Pain 1-10 Or Fever) Qty: 0 RF: 0 ibuprofen 600 mg Tablet 600 mg PO Q6H PRN PRN (Reason: Pain Score 1-3) Qty: 0 RF: 0 Primary Care Provider: Ai Freeman NP Referrals: Kadie Han MD [STAFF PHYSICIAN] - Keep [facility] appointment Ai Freeman NP, TRUCK BRACER-C [Primary Care Provider] - Disposition Disposition: Home, Self Care Discharge Date/Time: 08/16/20 23:22
== END 2020-08-16 23:22 | disposition home or self-care (01) ==
LOC: ED 23:20
PROVIDERS: Emergency Provider Emergency Medicine; PCP Nurse Practitioner Family
DX: O90.89 Other complications of the puerperium, not elsewhere classified (principal); R10.2 Pelvic and perineal pain
CPT/HCPCS: 99282

== ENCOUNTER 2021-01-27 10:35 | Emergency (ER) | payer MEDICAID, SELFPAY ==
[2021-01-27 10:36] VITALS: BP 114/72; PULSE 93; RESP 16; TEMP 35.8; O2SAT 99; BMI 18.8
[2021-01-27 10:37] VITALS: BP 114/72; PULSE 93; RESP 16; TEMP 35.8; O2SAT 99
--- NOTE | 2021-01-27 11:44 | EDS_ITS ---
HPI HPI - URI History of Present Illness Chief Complaint: Shortness of Breath Narrative Narrative: 20-year-old female with cough, fever, chills, body aches since yesterday. Her boyfriend has COVID-19. She is concerned she developed this. Patient has no nausea or vomiting. She does have generalized fatigue. Denies urinary complaints or bowel complaints. She states she has no medical problems except for low blood pressure at times. Has not been an issue recently. ROS ROS ED Constitutional Constitutional ED: Reports chills and fever(s) Eyes Eyes: Denies blurry vision or diplopia ENT ENT ED: Reports rhinorrhea Cardiovascular Cardiovascular: Denies chest pain Respiratory/Chest Respiratory/Chest: Reports cough and dyspnea Gastrointestinal Gastrointestinal: Denies abdominal pain, nausea or vomiting Genitourinary Genitourinary ED: Denies dysuria or hematuria Musculoskeletal Musculoskeletal: Reports myalgias; Denies arthralgias or neck pain Integumentary Denies Abrasions or rash Neurologic Neurologic: Reports headache(s); Denies paresthesias or weakness Psychiatric Psychiatric: Denies anxiety or depression PFSH PFS Medical History depression Home Medications Prenatabs FA 1 tab PO DAILY 05/10/18 [History Last Taken 08/10/20 10:00] acetaminophen 1,000 mg PO Q6H PRN PRN #0 tab 08/15/20 [Rx Last Taken Unknown] benzocaine-menthol [Dermoplast (with menthol)] 1 applic TOPICAL TID PRN PRN #0 g 08/15/20 [Rx Last Taken Unknown] ibuprofen 600 mg PO Q6H PRN PRN #0 tab 08/15/20 [Rx Last Taken Unknown] ondansetron HCl [Zofran] 4 mg PO Q8H PRN #14 tab 01/27/21 [Rx Last Taken Unkn own] Allergy/AdvReac Type Severity Reaction Status Date / Time Penicillins Allergy Rash Verified 01/27/21 10:35 sertraline [From Zoloft] AdvReac Other Verified 01/27/21 10:35 Social History Smoking Status: Never smoker EXAM Physical Exam Const Vital Signs: 01/27/21 10:36 01/27/21 10:37 01/27/21 10:54 Temperature 96.5 F L 96.5 F L Temperature Source Temporal Temporal Pulse Rate 93 93 Respiratory Rate 16 16 Respiratory Effort Non-Labored Short of Breath Blood Pressure 114/72 114/72 Blood Pressure Mean 86 86 Pulse Ox 99 99 Oxygen Delivery Method Room Air Room Air Positive well nourished and well developed General Appearance ED: well developed and NAD; Negative for pallor HEENT normocephalic and atraumatic Eyes PERRL and EOMs intact bilaterally Resp normal respiratory effort and clear to auscultation bilaterally Cardio Rate: regular rate Rhythm: regular rhythm GI non-tender Palpation: soft Neuro oriented x3, CN's II-XII intact bilaterally and no sensory deficits noted Sensorium / Orientation: alert Motor Exam: strength 5/5 throughout Psych mental status grossly normal Skin General Skin Exam: Negative for jaundice or pallor MDM MDM MDM Narrative Medical decision making narrative: 20-year-old female with no medical problems presenting with symptoms of a viral illness. Her vital signs are stable and she is afebrile. She is not hypoxic or tachypneic. She is complaining mostly of body aches and feeling rundown. She has low-grade fevers. Patient is exposed to Covid at home as her significant other has COVID-19. She was tested with a rapid Covid however this is basically within the first 24 hours of symptom onset. I do not believe patient needs a chest x-ray or lab work. Her rapid Covid was negative so I did send a PCR. Patient will quarantine at home for this. She is counseled that the best day of testing is significant fourth and fifth day and if she does not feel like she needs to come back to the emergency room she can schedule an outpatient Covid test. She is given return precautions for the emergency room. Impression: 1. RSV Discharge Plan Triage Chief Complaint: Shortness of Breath ED Provider: Mani Chang Dx/Rx/DC Orders Instructions: Coronavirus Disease 2019 (COVID-19): Caring for Yourself or Others Prescriptions: New ondansetron HCl [Zofran] 4 mg tablet 4 mg PO Q8H PRN (Reason: nausea and vomiting) Qty: 14 RF: 0 No Action Prenatabs FA 1 TABLET tablet 1 tab PO DAILY RF: 0 Dermoplast (with menthol) 20-0.5 % Aerosol 1 applic topical TID PRN PRN (Reason: for perineal discomfort) Qty: 0 RF: 0 acetaminophen 500 mg Tablet 1,000 mg PO Q6H PRN PRN (Reason: Pain 1-10 Or Fever) Qty: 0 RF: 0 ibuprofen 600 mg Tablet 600 mg PO Q6H PRN PRN (Reason: Pain Score 1-3) Qty: 0 RF: 0 Primary Care Provider: Ai Freeman NP Referrals: Ai Freeman NP, [employer]LECT[employer]IAN [employer]CRA[employer]-C [Primary Care Provider] - Disposition Disposition: Home, Self Care
== END 2021-01-27 12:20 | disposition home or self-care (01) ==
LOC: ED 11:22
PROVIDERS: Emergency Provider Student in an Organized Health Care Education/Training Program; PCP Nurse Practitioner Family
DX: Z20.822 Contact with and (suspected) exposure to COVID-19 (principal); B97.4 Respiratory syncytial virus as the cause of diseases classified elsewhere
CPT/HCPCS: 87426; 87635; 99282; U0005; U0003

== ENCOUNTER 2021-09-23 17:26 | Outpatient (CLI) | payer MEDICAID, SELFPAY ==
[2021-09-23 17:39] VITALS: BP 101/61; PULSE 77
[2021-09-23 18:05] LABS: Color, Urine Yellow (Yellow); Glucose, Dipstick Normal (Normal); Ketone-Dipstick Negative (Negative); Leukocyte Esterase-Dipstick 100 /ul (Negative); Nitrite-Dipstick Negative (Negative); Occult Blood-Urine Negative /ul (Negative); Protein-Dipstick Negative (Negative); Urine Bilirubin Dipstick Negative (Negative); Urine Clarity Sl. Cloudy (Clear); Urine Urobilinogen Normal (Normal)
--- NOTE | 2021-09-23 21:25 | OB.TRI.HP_ITS ---
HPI - General HPI Narrative TRACY SILVERMAN, is a 21 F at 28.4 weeks gestation who presents with occasional lower pelvic pains. Denies loss of fluid or vaginal bleeding. Positive movement. Concerned due to history of delivery at 36 weeks gestation. Maternal Data Information CHRIS Calculator Estimated Delivery Date Method Current WG Current Estimate 09/07/20 Manual 94w 3d PFSH PFSH Medical History depression Home Medications vits,calcium no.78-iron fumarate-folic acid 29 mg-1 mg tablet (Prenatabs FA) 1 tab PO DAILY 05/10/18 [History Last Taken 09/23/21 08:00 1 tab] acetaminophen 500 mg tablet 1,000 mg PO Q6H PRN PRN Pain 1-10 Or Fever #0 tabs 08/15/20 [Rx Last Taken 09/23/21 13:00 1000 mg] ferrous sulfate 325 mg (65 mg iron) tablet 325 mg PO QODAY anemia 09/23/21 [History Last Taken 09/22/21 22:00 325 mg] Allergy/AdvReac Type Severity Reaction Status Date / Time Penicillins Allergy Rash Verified 09/23/21 17:45 sertraline [From Zoloft] AdvReac Other Verified 09/23/21 17:45 Social History Smoking Status: Never smoker History Elective abortions Hx Para 1 Spontaneous abortions Hx # Term Pregnancies Ectopic pregnancies Hx # Pregnancies Multiple births # of living children Visit Details OB Flowsheet Initial Weight: Not Recorded Date -?-?-?-?-?-?-?-?-?--?-?-?- EGA Weight BP Urine Prot -?-?-?-?-?-?-?-?-?-?-?-?- Glucose FHR FuHt Pres Dilation -?-?-?-?-?-?-?-?-?-?-?-?- Effaced St Visit Note 09/23/21 -?-?-?-?-?-?-?-?-?-?-?-?- 94w 3d 113 lb 5.082 oz 101/61 Negative mg/dl (Negative) -?-?-?-?-?-?-?-?-?-?-?-?- -?-?-?-?-?-?-?-?-?-?-?-?- ROS Eyes Eyes: Denies blurry vision, change in vision or spots in vision ENT HEENT: Denies dizziness or headache(s) Cardiovascular Cardiovascular: Denies abdominal pain, chest pain or dyspnea Respiratory/Chest Respiratory/Chest: Denies cough, dyspnea, shortness of breath at rest or shortness of breath with exertion Gastrointestinal Gastrointestinal: Denies abdominal pain, diarrhea or vomiting Genitourinary Genitourinary: Denies change in urinary stream, difficulty urinating or dysuria Musculoskeletal Musculoskeletal: Reports none Integumentary Integumentary: Denies rash Neurologic Neurologic: Denies dizziness, headache(s), memory loss or weakness Psychiatric Psychiatric: Reports none Physical Exam Const alert and oriented x3 General Appearance: cooperative Orientation / Consciousness: awake Exam Limitations: no limitations HEENT normocephalic Eyes General Eye: normal appearance of both eyes Neck full ROM Chest Chest: symmetrical chest wall rise Resp normal respiratory effort and normal air movement Auscultation: clear to auscultation bilaterally GI Palpation: soft Bladder / Kidney Exam: no CVA tenderness Back/Spine normal ROM Extremity Extremity Narrative: Agusto's negative bilaterally Skin no rashes or lesions noted Neuro oriented x3 NST FHR Rate Baby A Baseline: 140 Variability:: Moderate Accelerations:: 15 x 15 Decelerations:: None NST Reactive:: Yes and Appropriate for gestational age FHR Category:: Category I Uterine Activity:: None noted via TOCO Assessment & Plan (1) Pelvic pain: (2) 28 weeks gestation of : PLAN: Plan NST reactive No contractions via TOCO or palpated UA- collected and sent- negative CE- Closed/thick/high D/C home with instructions to increase fluids PTL precautions reviewed
== END 2021-09-23 18:40 | disposition home or self-care (01) ==
LOC: WPOUT 17:31 → WP 17:32
PROVIDERS: PCP Nurse Practitioner Family; Visit Provider Advanced Practice Midwife
DX: O99.891 Other specified diseases and conditions complicating pregnancy (principal); R10.2 Pelvic and perineal pain; Z3A.28 28 weeks gestation of pregnancy
CPT/HCPCS: 59025; 59050; 81002; 99218; G0378

== ENCOUNTER 2021-11-14 14:45 | Inpatient (IN) | payer MEDICAID, SELFPAY ==
[2021-11-14] VITALS (55 sets, daily range): BP systolic 94–129; BP diastolic 51–79; PULSE 49–93; RESP 16; TEMP 36.5–36.7; O2SAT 84–100; BMI 21.2
[2021-11-14] MEDS: Lactated Ringers 1,000 ML 999 ML IV (13:25)
[2021-11-14 13:49] LABS: Absolute Lymphocyte Count 1.94 X10^3/uL (0.83-4.51); Absolute Neutrophil Count 9.8 X10^3/uL (2.0-7.7); Basophil# 0.07 X10^3/uL; Basophil% 0.5 % (0-1); Eosinophil# 0.06 X10^3/uL; Eosinophils% 0.5 % (0-5); Hematocrit 33.7 % (37-47); Hemoglobin 10.3 g/dL (12.0-15.0); Lymphocyte # 1.94 X10^3/ul (0.83-4.51); Lymphocyte % 14.7 % (19-41); Mean Corp Hgb Conc 30.6 g/dL (32-36); Mean Corpuscular Hgb 24.1 pg (27.0-32.0); Mean Corpuscular Volume 78.9 fL (81-99); Mean Platelet Vol. 10.5 fl (6.2-12.0); Monocyte# 1.33 X10^3/uL; Monocyte% 10.1 % (0-10); NRBC Flagged by Analyzer 0 % (0-5); Neutrophil # 9.77 X10^3/uL (2.7-7.7); Neutrophil % 73.7 % (47-70); Platelet Count 253 K/mm3 (150-450); RBC Distribution Width CV 14.2 % (11.6-14.6); RBC Distribution Width SD 39.7 fl (35.1-43.9); Red Blood Count 4.27 M/mm3 (4.2-5.4); White Blood Count 13.2 K/mm3 (4.4-11.0)
[2021-11-14] MEDS: Lactated Ringers 1,000 ML 50 ML IV (15:13)
[2021-11-14] MEDS: LACTATED RINGERS 500 ML 999 ML IV (15:13)
[2021-11-14] MEDS: fentaNYL-bupivacaine (epidural) 100 ML BAG EPIDURAL (16:03)
--- NOTE | 2021-11-14 16:56 | HP.PCM.OB_ITS ---
HPI - General General Date of Admission: 11/14/21 HPI Narrative TRACY SILVERMAN, is a 21 F at 36 week gestation who presents with contractions that started earlier this morning. She denies any loss of fluid or vaginal bleeding. Positive movement. Patient has a history of previous delivery at 36.3 weeks in 2020. complicated by IUGR. EFW 6%, BRIANNA normal. Maternal Data Information CHRIS Calculator Estimated Delivery Date Method Current WG Current Estimate 12/12/21 Manual 36w 0d PFSH PFSH Medical History ADHD Family history of bipolar disorder Family history of congenital cardiac septal defect Family history of drug abuse History of pre-term labor depression Seizures Sterilization Subchorionic hematoma in first trimester Syncope Home Medications vits,calcium no.78-iron fumarate-folic acid 29 mg-1 mg tablet (Prenatabs FA) 1 tab PO DAILY 05/10/18 [History Last Taken 11/13/21] acetaminophen 500 mg tablet 1,000 mg PO Q6H PRN PRN Pain 1-10 Or Fever #0 tabs 08/15/20 [Rx Last Taken 09/23/21 13:00 1000 mg] ferrous sulfate 325 mg (65 mg iron) tablet 325 mg PO QODAY anemia 09/23/21 [History Last Taken 11/13/21] hydroxyprogest(PF)(preg presv) 250 mg/mL (1 mL) IM oil 250 mg IM QWEEK H/O PTL 11/14/21 [History Last Taken Unknown] Allergy/AdvReac Type Severity Reaction Status Date / Time Penicillins Allergy Rash Verified 11/14/21 12:33 sertraline [From Zoloft] AdvReac Other Verified 11/14/21 14:27 Family History Other Family history of congenital heart defect Patient's father is Social History Smoking Status: Never smoker History Elective abortions Hx Para 2 Spontaneous abortions Hx # Term Pregnancies Ectopic pregnancies Hx # Pregnancies Multiple births # of living children Visit Details OB Flowsheet Initial Weight: Not Recorded Date -?-?-?-?-?-?-?-?-?-?-?-?- EGA Weight BP Urine Prot -?-?-?-?-?-?-?-?-?-?-?-?- Glucose FHR FuHt Pres Dilation -?-?-?-?-?-?-?-?-?-?-?-?- Effaced St Visit Note 11/14/21 -?-?-?-?-?-?-?-?-?-?-?-?- 36w 0d 120 lb 100/64 109/65 108/63 106/64 109/62 120/60 104/55 104/56 105/55 96/51 99/62 104/52 104/51 101/51 97/54 100/55 94/54 -?-?-?-?-?-?-?-?-?-?-?-?- -?-?-?-?-?-?-?-?-?-?-?-?- ROS Eyes Eyes: Denies blurry vision, change in vision or spots in vision ENT HEENT: Denies dizziness or headache(s) Cardiovascular Cardiovascular: Denies abdominal pain, chest pain or dyspnea Respiratory/Chest Respiratory/Chest: Denies cough, dyspnea, shortness of breath at rest or shortness of breath with exertion Gastrointestinal Gastrointestinal: Denies abdominal pain, diarrhea or vomiting Genitourinary Genitourinary: Denies change in urinary stream, difficulty urinating or dysuria Musculoskeletal Musculoskeletal: Reports none Integumentary Integumentary: Denies rash Neurologic Neurologic: Denies dizziness, headache(s), memory loss or weakness Psychiatric Psychiatric: Reports none Vital Signs Vital Signs Vital Signs: 11/14/21 12:16 11/14/21 12:16 11/14/21 13:40 Temperature Temperature Source Pulse Rate 70 Blood Pressure 100/64 109/65 BP Systolic 100 109 BP Diastolic 64 65 Pulse Ox 11/14/21 13:40 11/14/21 13:40 11/14/21 13:40 Temperature Temperature Source Temporal Pulse Rate 69 Blood Pressure BP Systolic BP Diastolic Pulse Ox 100 11/14/21 13:40 11/14/21 12:15 11/14/21 12:15 Temperature 97.9 F 98.0 F Temperature Source Tympanic Pulse Rate Blood Pressure BP Systolic BP Diastolic Pulse Ox 11/14/21 14:39 11/14/21 14:40 11/14/21 14:40 Temperature Temperature Source Temporal Pulse Rate 62 Blood Pressure 108/63 BP Systolic 108 BP Diastolic 63 Pulse Ox 11/14/21 14:39 11/14/21 15:58 11/14/21 15:58 Temperature 97.8 F Temperature Source Pulse Rate 65 Blood Pressure 106/64 BP Systolic 106 BP Diastolic 64 Pulse Ox 11/14/21 16:03 11/14/21 16:03 11/14/21 16:09 Temperature Temperature Source Pulse Rate 68 Blood Pressure 109/62 120/60 BP Systolic 109 120 BP Diastolic 62 60 Pulse Ox 11/14/21 16:09 11/14/21 16:12 11/14/21 16:12 Temperature Temperature Source Pulse Rate 88 68 Blood Pressure 104/55 L BP Systolic 104 BP Diastolic 55 Pulse Ox 11/14/21 16:15 11/14/21 16:15 11/14/21 16:17 Temperature Temperature Source Pulse Rate 70 Blood Pressure 104/56 L BP Systolic 104 BP Diastolic 56 Pulse Ox 99 11/14/21 16:17 11/14/21 16:20 11/14/21 16:20 Temperature Temperature Source Pulse Rate 80 82 Blood Pressure BP Systolic BP Diastolic Pulse Ox 99 11/14/21 16:22 11/14/21 16:22 11/14/21 16:23 Temperature Temperature Source Pulse Rate 90 Blood Pressure 105/55 L BP Systolic 105 BP Diastolic 55 Pulse Ox 84 11/14/21 16:23 11/14/21 16:25 11/14/21 16:25 Temperature Temperature Source Pulse Rate 78 77 Blood Pressure BP Systolic BP Diastolic Pulse Ox 98 11/14/21 16:27 11/14/21 16:27 11/14/21 16:30 Temperature Temperature Source Pulse Rate 88 74 Blood Pressure 96/51 L BP Systolic 96 BP Diastolic 51 Pulse Ox 11/14/21 16:30 11/14/21 16:32 11/14/21 16:32 Temperature Temperature Source Pulse Rate 87 Blood Pressure 99/62 BP Systolic 99 BP Diastolic 62 Pulse Ox 98 11/14/21 16:35 11/14/21 16:35 11/14/21 16:37 Temperature Temperature Source Pulse Rate 73 Blood Pressure 104/52 L BP Systolic 104 BP Diastolic 52 Pulse Ox 99 11/14/21 16:37 11/14/21 16:40 11/14/21 16:40 Temperature Temperature Source Pulse Rate 70 80 Blood Pressure BP Systolic BP Diastolic Pulse Ox 98 11/14/21 16:42 11/14/21 16:42 11/14/21 16:45 Temperature Temperature Source Pulse Rate 71 76 Blood Pressure 104/51 L BP Systolic 104 BP Diastolic 51 Pulse Ox 11/14/21 16:45 11/14/21 16:47 11/14/21 16:47 Temperature Temperature Source Pulse Rate 77 Blood Pressure 101/51 L BP Systolic 101 BP Diastolic 51 Pulse Ox 98 11/14/21 16:50 11/14/21 16:50 11/14/21 16:52 Temperature Temperature Source Pulse Rate 63 Blood Pressure 97/54 L BP Systolic 97 BP Diastolic 54 Pulse Ox 99 11/14/21 16:52 11/14/21 16:53 11/14/21 16:53 Temperature Temperature Source Pulse Rate 93 91 Blood Pressure BP Systolic BP Diastolic Pulse Ox 93 11/14/21 16:55 11/14/21 16:55 Temperature Temperature Source Pulse Rate 82 Blood Pressure BP Systolic BP Diastolic Pulse Ox 100 Weight Weight: 120 lb Body Mass Index (BMI) 21.2 Physical Exam Const alert, oriented x3 and no apparent distress General Appearance: cooperative Orientation / Consciousness: awake Exam Limitations: no limitations HEENT normocephalic Head and Scalp: normal to inspection Eyes General Eye: normal appearance of both eyes Neck full ROM and no lymphadenopathy Lymph Lymphatic: no lymphadenopathy noted Chest inspection of chest normal Resp normal respiratory effort, normal air movement and clear to auscultation bi laterally Effort and Inspection: able to speak in complete sentences and symmetric chest movement Cardio regular rate and regular rhythm GI normal to inspection, nondistended, normoactive bowel sounds Manual OB Exam: presentation cephalic, dilated 4, effaced 80 and station - 1 Back/Spine normal ROM Extremity full ROM and no calf tenderness Skin no rashes or lesions noted General Skin Exam: no breakdown Neuro oriented x3 and CN's II-XII intact bilaterally Psych mental status grossly normal and thought process normal Labs Labs Labs: Blood Type O POSITIVE Antibody Screen NEGATIVE Hct 33.7 % (37-47) L Hgb 10.3 g/dL (12.0-15.0) L Group B Strep DNA Negative (Negative) Rhogam given: No Rubella- immune HB - neg HC- neg RPR- NR HIV- NR GBS- unknown Assessment & Plan (1) 36 weeks gestation of : (2) IUGR (intrauterine growth restriction): (3) labor: (4) GBS screening not performed: PLAN: Plan CE- changed from admission- /-1 Admit to labor and delivery Spontaneous onset of labor Routine labs Start IV and give fluids per orders GBS unknown- will treat prophylactically- PCN allergy- will start Vancomycin IV Epidural when indicated Naval Inspector and Nursery notified Anticipate Dr. Han aware of admission and is collaborating physician
[2021-11-14] MEDS: Oxytocin 30 units/NS 500 ml 30 UNITS/500 ML IV.SOLN IV (17:56)
--- NOTE | 2021-11-14 18:59 | PCM.RX.CS ---
Consult Pharmacy has been consulted to manage selected antiobiotic: Vancomycin Type of Consult: New start Suspected Infection: Other - GBS PROPHYLAXIS Microbiology: Microbiology 11/14/21 13:25 Nasal Secretion SARS-CoV-2 Antigen (Rapid) - Final Pharmacy Plan for Drug Dosing: NEW START IV VANCOMYCIN Consulting Physician: Marie ESTEBAN Indication: GBS PROPHYLAXIS Goal Trough: 10-15 MG/DL SrCr: ? - ORDERED BUT HAS NOT BEEN DRAWN CrCl: ? - ORDERED BUT HAS NOT BEEN DRAWN Vancomycin Dose: 1000MG Q8 STARTING AT 11/14 1530. TROUGH SCHEDULED PRIOR TO 4TH DOSE IF PATIENT HAS NOT DELIVERED. Pending Level: 11/15/21 @ 1500 Pharmacy Service will continue to monitor and adjust dosing as required.
--- NOTE | 2021-11-14 19:19 | PLAC_PTH ---
PATIENT: TRACY SILVERMAN LOC: [facility] U#:[id number] AGE/SX: 21/ ROOM: WP019 RE11/14/[address]: Pam Yarbrough CNM : 2000 BED: 1 DIS: 11/16/2021 SPEC #: [id number] RECD: 11/14/21 21:55 STATUS: DAMIAN REWesley #: [id number] JASBIR: 11/14/21 19:[address]: Pam Yarbrough DEPT: SURGICAL PATHOLOGY RECD BY: Bisi Kim ENTERED: 11/17/21 09:03 SP TYPE: PLACENTA OTHR DR: MARYANN Ruiz Tissues: Placenta, NOS Procedures: Surgery Specimen Level V HEADER OPERATION: Vaginal delivery PRE-OP DIAGNOSIS: labor and delivery ? baby IUGR TISSUE SUBMITTED: Placenta MICROSCOPIC DIAGNOSIS Placenta: Placental disc - third trimester placenta (339 gm). Membranes ? circummarginate insertion. Umbilical cord - three blood vessels and no pathologic diagnosis. TEJA:bean 11/18/2021 MICROSCOPIC DESCRIPTION Slides are reviewed. GROSS DESCRIPTION SPECIMEN: PLACENTA / CLINICAL INFORMATION: A. Weight: 1.985 kg B. Gestational Age: 36 weeks C. Sex: Female PLACENTAL WEIGHT (POST FIXATION): 339 gm PLACENTAL DIMENSIONS: 15 x 14 x 4 cm PLACENTAL SHAPE: Usual ovoid PLACENTAL WEIGHT FOR GESTATIONAL AGE: Within 10-99th percentile MEMBRANES - Present A. Insertion: Marginal. B. Site of rupture from edge: 9 cm from edge of placental disc. They are inserted 1.5 to 3 cm away from the margin. C. Color of membrane: Smith-owens D. Abnormalities: None UMBILICAL CORD - Present A. Color: Smith-owens B. Insertion: Paracentral C. Length: 37 cm D. Diameter: 1 cm E. Number of vessels: Three F. Abnormalities: None PLACENTAL DISC - Present A. Color of surface: Smith-owens B. surface abnormalities: None C. Maternal cotyledons: Intact with minimal tears D. Attached retro placental clot: No clot E. Cut surface: Dark red and spongy F. Lesions: None G. Separate clot: Absent SECTIONS SUBMITTED: 1. Membrane roll 2. Cord, maternal end, insertion of membrane away from the margin 3. Cord, end, insertion of membrane away from the margin 4. Placental disc, and maternal surfaces 5. Placental disc, and maternal surfaces 6. Placental disc, and maternal surfaces SJ:bean 11/17/2021 TC:5 CPT: 79749
[2021-11-14] MEDS: Oxytocin 30 units/NS 500 ml 30 UNITS/500 ML IV.SOLN 334 UNITS IV (19:21)
[2021-11-14] MEDS: Methylergonovine 0.2 MG/ML Ampul IM (19:28)
--- NOTE | 2021-11-14 19:32 | EX.PCM.OBRPT ---
Assessment & Plan (1) spontaneous labor with delivery: (2) IUGR (intrauterine growth restriction): (3) 36 weeks gestation of : Maternal Data Information CHRIS Calculator Estimated Delivery Date Method Current WG Current Estimate 12/12/21 Manual 36w 0d Vaginal Delivery Maternal Presentation Maternal Presentation: Patient is a at 36.0 weeks gestation that presented in spontaneous labor. Type of Induction: Pitocin Operative Information Pre-Operative Diagnosis: gestation, spontaneous labor Post-Operative Diagnosis: Spontaneous vaginal delivery, live female infant Surgery / Procedure Performed: Spontaneous Vaginal Delivery Type of Anesthesia: Epidural Drain: Samaniego to straight drain Estimated Blood Loss: 350 Time of Delivery: 19:19 Findings Description of Procedure: Called to patient's room. Complete dilation and +2 station. With next contraction and minimal maternal effort, head delivered. Loose nuchal cord easily reduced as infant body was spontaneously being delivered. Vigorous female placed on maternal abdoment and attended to by nursing staff. Pitocin IV started for active management of the 3 rd stage of labor. 3 vessel cord clamped and cut after 2 minute delay by FOB. Infant placed immediately skin to skin with patient. Placenta delivered spontaneoulsy and intact- sent to pathology for IUGR and . Fundus initially boggy and patient actively bleeding. Methergine IM x 1 dose given. With massage, fundus firmed up and remained at -3 station. Vaginal sweep completed by me. Vagina and perineum intact. EBL 350 cc. APGARS 8/9. Patient and bonding well at this time. Dr. Han notified of delivery. Presentation: Vertex Amniotic Membrane Rupture Type: Spontaneous Time of Membrane Rupture: 1553 Amniotic Fluid Description: Clear Placental Delivery Description: Spontaneous Placenta Disposition: Sent to Pathology (IUGR, ) Cord Vessel Description: 3 Vessels Cord Entanglement: Around neck x 1, loose and - (Cord around body x 1) Nuchal Cord Compression: Without compression Infant A Gender: Female (1 minute): 8 (5 minute): 9 Delayed Cord Clamping: Yes Post Vaginal Delivery Medications Given After Delivery: IV Pitocin and IM Methergin Episiotomy Description: None Laceration: None Complication Complications: None
[2021-11-14] MEDS: Ondansetron 4 MG/2 ML Vial IV (20:11)
[2021-11-14] MEDS: 0.9% Saline Lock 10 ML Syringe IV (20:11)
[2021-11-14] MEDS: Acetaminophen 500 MG Tablet 1000 MG PO (21:08)
[2021-11-14 22:10] LABS: Pathology Specimen OB SEE PATHOLOGY REPORT
[2021-11-15] VITALS (10 sets, daily range): BP systolic 90–108; BP diastolic 52–62; PULSE 55–82; RESP 16; TEMP 36.6–37.1; O2SAT 97–99
[2021-11-15] MEDS: Naproxen 500 MG Tablet PO ×2 (08:44→17:53)
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
[2021-11-15] MEDS: Acetaminophen 500 MG Tablet 1000 MG PO (14:11)
--- NOTE | 2021-11-15 20:15 | PN.OBGYN_ITS ---
Subjective Subjective Patient seen at bedside. Hand expressing and feeding with syringe. Working on sucking reflex with infant. Patient feeling great. Denies any pain. Ambulating and voiding without difficulty. Lochia minimal. Unsure when infant will be discharged- will go hotel if has to stay. Objective Data Objective Data Vital Signs: Vital Signs Temp Pulse Resp BP Pulse Ox O2 Del Method 98.7 F 74 16 94/52 L 97 Room Air 11/15/21 19:40 11/15/21 19:40 11/15/21 19:40 11/15/21 19:40 11/15/21 19:40 11/15/21 19:40 Oxygen Delivery Method Room Air Weight: 120 lb Body Mass Index (BMI) 21.2 Intake & Output: Intake and Output for Last 24 Hours 11/13/21 11/14/21 11/15/21 23:59 23:59 23:59 Intake Total 3244.63 / 3244.63 Output Total 1000 / 1000 1100 / 1100 Balance 2244.63 / 2244.63 -1100 / -1100 Lab / Micro Data Result Diagrams: 11/14/21 13:25 Micro: Microbiology 11/14/21 13:25 Nasal Secretion SARS-CoV-2 Antigen (Rapid) - Final ROS Eyes Eyes: Denies blurry vision, change in vision or spots in vision ENT HEENT: Denies dizziness or headache(s) Cardiovascular Cardiovascular: Denies abdominal pain, chest pain or dyspnea Respiratory/Chest Respiratory/Chest: Denies cough, dyspnea, shortness of breath at rest or s hortness of breath with exertion Gastrointestinal Gastrointestinal: Denies abdominal pain, diarrhea or vomiting Genitourinary Genitourinary: Denies change in urinary stream, difficulty urinating or dysuria Musculoskeletal Musculoskeletal: Reports none Integumentary Integumentary: Denies rash Neurologic Neurologic: Denies dizziness, headache(s), memory loss or weakness Physical Exam Const alert and no apparent distress General Appearance: cooperative and comfortable Exam Limitations: no limitations HEENT normocephalic Eyes General Eye: normal appearance of both eyes Neck full ROM General: normal visual inspection Chest Chest: symmetrical chest wall rise Resp normal respiratory effort and normal air movement Effort and Inspection: symmetric chest movement Auscultation: clear to auscultation bilaterally Cardio regular rate and regular rhythm GI normal to inspection, nondistended, normoactive bowel sounds Back/Spine normal ROM Extremity full ROM and no calf tenderness General Extremity: normal exam except as noted Skin no rashes or lesions noted Neuro CN's II-XII intact bilaterally Psych mental status grossly normal Assessment & Plan (1) spontaneous labor with delivery: (2) (spontaneous vaginal delivery): PLAN: Plan PPD 1 Routine care support Anticipate discharge home tomorrow
[2021-11-16 01:46] VITALS: BP 97/47; PULSE 58
[2021-11-16 01:55] VITALS: BP 97/47; PULSE 60; RESP 14; TEMP 36.9; O2SAT 98
--- NOTE | 2021-11-16 04:49 | NURSING ---
Charting done by Caprice RN reviewed by TabbyRN
--- NOTE | 2021-11-16 06:27 | PCM.DC ---
Discharge Instructions Diet Discharge Diet: No restrictions Activity Discharge Activity: Return to Normal Activity, May Shower and May Take a Tub Bath May resume sexual activity in: 4-6 weeks Weight Bearing Status: Weight bearing as tolerated Dressing / Incision Call your doctor if you observe: Inability to urinate, Using more than 1 pad per hour, Shortness of breath, Dizziness, Swelling in the ankles, Chest pain, Calf discomfort and Uncontrolled pain Follow Up Care Please Follow Up With: Pam Yarbrough CNM When: Within 10 days Test Results: Test results from this visit will be discussed in further detail at your follow-up appointment, if applicable. Discharge Plan Admission Admit Date/Time: 11/14/21 14:45 Primary Reason for Your Visit: Labor and Delivery Attending Provider: Pam Yarbrough Primary Care Provider: Ai Freeman NP Discharge Orders/Prescriptions Prescriptions: Continued Prenatabs FA 1 TABLET tablet 1 tab PO DAILY ferrous sulfate 325 mg (65 mg iron) Tablet 325 mg PO QODAY Discontinued acetaminophen 500 mg Tablet 1,000 mg PO Q6H PRN PRN (Reason: Pain 1-10 Or Fever) Qty: 0 0RF hydroxyprogest(PF)(preg presv) [Antonina] 250 mg/mL (1 mL) Oil 250 mg IM QWEEK Referrals / Follow Up: Ai Freeman NP, [employer] SALES REPRESENTATIVE-C [Primary Care Provider] - Disposition Disposition (needs filled in before D/C Order can be placed): Home, Self Care
--- NOTE | 2021-11-16 06:30 | PCM.PN.OB ---
Subjective Subjective Patient seen at bedside. Ambulating and voiding without difficulty. Denies headache, dizziness, CP, or SOB. Lochia decreasing. Continues to express and feed via syringe or spoon. Working with on latching. possible discharge tonight or tomorrow. Patient to be hotel status. Objective Data Objective Data Vital Signs: Vital Signs Temp Pulse Resp BP Pulse Ox O2 Del Method 98.5 F 60 14 97/47 L 98 Room Air 11/16/21 01:55 11/16/21 01:55 11/16/21 01:55 11/16/21 01:55 11/16/21 01:55 11/16/21 01:55 Oxygen Delivery Method Room Air Weight: 120 lb Body Mass Index (BMI) 21.2 Intake & Output: Intake and Output for Last 24 Hours 11/14/21 11/15/21 11/16/21 23:59 23:59 23:59 Intake Total 3244.63 / 3244.63 Output Total 1000 / 1000 1100 / 1100 Balance 2244.63 / 2244.63 -1100 / -1100 Lab / Micro Data Result Diagrams: 11/14/21 13:25 Micro: Microbiology 11/14/21 13:25 Nasal Secretion SARS-CoV-2 Antigen (Rapid) - Final ROS Eyes Eyes: Denies blurry vision, change in vision or spots in vision ENT HEENT: Denies dizziness or headache(s) Cardiovascular Cardiovascular: Denies abdominal pain, chest pain or dyspnea Respiratory/Chest Respiratory/Chest: Denies cough, dyspnea, shortness of breath at rest or shortness of breath with exertion Gastrointestinal Gastrointestinal: Denies abdominal pain, diarrhea or vomiting Genitourinary Genitourinary: Denies change in urinary stream, difficulty urinating or dysuria Musculoskeletal Musculoskeletal: Reports none Integumentary Integumentary: Denies rash Neurologic Neurologic: Denies dizziness, headache(s), memory loss or weakness Physical Exam Const alert and no apparent distress General Appearance: cooperative and comfortable Exam Limitations: no limitations HEENT normocephalic Eyes General Eye: normal appearance of both eyes Neck full ROM General: normal visual inspection Chest Chest: symmetrical chest wall rise Resp normal respiratory effort and normal air movement Effort and Inspection: symmetric chest movement Auscultation: clear to auscultation bilaterally Cardio regular rate and regular rhythm GI normal to inspection, nondistended, normoactive bowel sounds Back/Spine normal ROM Extremity full ROM and no calf tenderness General Extremity: normal exam except as noted Skin no rashes or lesions noted Neuro CN's II-XII intact bilaterally Psych mental status grossly normal
[2021-11-16 07:57] VITALS: BP 97/59; PULSE 76; RESP 18; TEMP 37; O2SAT 97
[2021-11-16 07:58] VITALS: BP 97/59; PULSE 79
[2021-11-16] MEDS: FLU VACC QS2022-23(6MOS UP)/PF 60 MCG/0.5 ML SYRINGE IM (10:49)
[2021-11-16 14:27] VITALS: BP 99/53; PULSE 82; RESP 16; TEMP 36.7
[2021-11-16 14:28] VITALS: BP 99/53; PULSE 82
--- NOTE | 2021-11-18 13:14 | CM.ED ---
SW reviewed case as per patient's report she was on Adderall for 5-6 weeks into her . No drug screen done by [facility]. SKYE reviewed chart with Monique Trammell in reviewing of the patient's PNC records. Per records patient on PNC visit on 05/09/21 voiced she was not taking her Adderall anymore. There was no concerns reported regarding patient's Adderall use and it appears to have been prescribed to her and she discontinued when she learned she was . No further SW needs at this time. Chacha REAVES
== END 2021-11-16 15:15 | disposition home or self-care (01) | DRG 560 ==
PROVIDERS: Obstetrics & Gynecology; Admitting Provider Advanced Practice Midwife; PCP Nurse Practitioner Family; Referring Provider Advanced Practice Midwife; Visit Provider Advanced Practice Midwife
PROC: (CPT 59514; principal; 2021-10-16 11:45)
DX: O60.14X0 Preterm labor third trimester with preterm delivery third trimester, not applicable or unspecified (principal); Z37.0 Single live birth; O36.5930 Maternal care for other known or suspected poor fetal growth, third trimester, not applicable or unspecified; Z3A.36 36 weeks gestation of pregnancy; O69.81X0 Labor and delivery complicated by cord around neck, without compression, not applicable or unspecified
CPT/HCPCS: 59025; 59050; 85025; 86850; 86900; 86901; 87426; 88307; 99218; J7040; J7120; 90686; A4216; G0378; J2405

== ENCOUNTER 2022-01-16 11:49 | Emergency (ER) | payer MEDICAID, SELFPAY ==
[2022-01-16 11:50] VITALS: BP 99/75; PULSE 105; RESP 18; TEMP 36; O2SAT 99; BMI 20.3
--- NOTE | 2022-01-16 13:42 | EDS_ITS ---
HPI HPI - GI History of Present Illness Chief Complaint: Diarrhea Detail of Chief Complaint: Dentalized abdominal pain with nausea, vomiting and diarrhea Informant: patient Abdominal Pain/Flank Pain Onset: Yesterday Context: Sudden Onset Timing: Continuous and Waxes and wanes Quality: Aching and Cramping Location: Diffuse Current Severity: Mild Maximum Severity: Moderate Worsened by: - (Urea and vomiting) Relieved by: Nothing Nausea/Vomiting/Emesis GI Symptom: Positive for Nausea, Vomiting and - (15+ times) Onset: Today and Yesterday Quality: Negative for Blood streaks, Coffee ground or Hematemesis Diarrhea/Melena/Hematochezia GI Symptom: Positive for Diarrhea; Negative for Melena or Hematochezia Onset: Today and Yesterday Stool Quality: Positive for Loose and Watery Episodes: 10 Associated Symptoms Associated Symptoms: Negative for Dysuria, Frequency, Hematuria or Urgency LMP: 2 weeks ago Narrative Narrative: Is a 21-year-old G3, P3 Ab0 white female who was last normal menstrual period was 2 weeks ago and presents with abdominal pain that is generalized with nausea, vomiting diarrhea that started yesterday. She denies documented fever. She complains of subjective fever with aches. She denies rhinorrhea, postnasal drainage, congestion. She denies sore throat. She denies cough or shortness of breath. She denies chest discomfort. She denies dysuria, frequency, urgency or hematuria. She does endorse dry mouth, thirst, orthostatic symptoms. She states her boyfriend drove her to the emergency department. She denies rash. She denies swelling of her joints. Prior similar symptoms: No Recent Illness/Hospitalization: No PFSH PFSH Medical History ADHD Family history of bipolar disorder Family history of congenital cardiac septal defect Family history of drug abuse GBS screening not performed History of pre-term labor depression spontaneous labor with delivery Seizures Sterilization Subchorionic hematoma in first trimester (spontaneous vaginal delivery) Syncope Home Medications ondansetron 4 mg disintegrating tablet 4 mg PO Q8H PRN PRN Nausea #10 tabs 01/16/22 [Rx Last Taken Unknown] Allergy/AdvReac Type Severity Reaction Status Date / Time Penicillins Allergy Rash Verified 01/16/22 11:50 sertraline [From Zoloft] AdvReac Other Verified 01/16/22 11:50 Family History Other Family history of congenital heart defect Patient's father is Social History (Updated 01/16/22 @ 13:[address] Scott Villareal MD) household members: significant other and children Smoking Status: Never smoker substance use type: does not use ROS ROS ED Constitutional Constitutional ED: Reports fever(s) and subjective; Denies chills, sweats or weight loss ENT ENT ED: Denies ear pain, rhinorrhea or sore throat Cardiovascular Cardiovascular: Denies chest pain, orthopnea, palpitations, paroxysmal nocturnal dyspnea or racing heartbeat Respiratory/Chest Respiratory/Chest: Denies cough, dyspnea, dyspnea on exertion, orthopnea or paroxysmal nocturnal dyspnea Gastrointestinal Gastrointestinal: Reports abdominal pain, diarrhea, nausea and vomiting; Denies melena Genitourinary Genitourinary ED: Denies dysuria, hematuria or urinary frequency Musculoskeletal Musculoskeletal: Reports arthralgias and myalgias; Denies back pain or neck pain Integumentary Denies abscess, Abrasions or rash Neurologic Neurologic: Reports headache(s); Denies paresthesias or weakness Psychiatric Psychiatric: Denies anxiety or depression Hematologic/Lymphatic Hematologic/Lymphatic: Denies easy bleeding or easy bruising EXAM Physical Exam Const Vital Signs: 01/16/22 11:50 01/16/22 13:50 Temperature 96.8 F L Temperature Source Temporal Pulse Rate 105 H Respiratory Rate 18 16 Blood Pressure 99/75 Blood Pressure Mean 83 Pulse Ox 99 Oxygen Delivery Method Room Air Positive well nourished and well developed Constitutional Narrative: Patient appears ill and pale. General Appearance ED: well developed, NAD and pallor HEENT Reports TM's clear and dry mucous membranes HEENT Narrative: Nares patent. Uvula midline. No erythema or exudate the posterior pharynx. normocephalic and atraumatic Tympanic Membrane ED: Yes TM's clear Mouth ED: Yes dry mucous membranes Mouth: dry mucous membranes Eyes PERRL and EOMs intact bilaterally General Eye ED: Negative for pale conjunctiva or scleral icterus Neck no lymphadenopathy, supple and no JVD Resp normal respiratory effort and clear to auscultation bilaterally Cardio regular rhythm, S1 normal heart sound, S2 normal heart sound and no murmurs Rate: tachycardic GI non-tender, non-distended and no masses Auscultation: hypoactive bowel sounds Palpation: soft Back/Spine no CVA tenderness Cervical Spine: Negative for cervical spine tenderness Thoracic Spine / Upper Back: Negative for thoracic spinal tenderness Lumbar Spine / Lower Back: Negative for lumbar spinal tenderness Extremity full ROM General Extremety ED: Negative for edema, tenderness or other findings General Extremity: Negative for edema or other findings Neuro CN's II-XII intact bilaterally, moves all extremities and no sensory deficits noted Sensorium / Orientation: alert Motor Exam: strength 5/5 throughout Psych mental status grossly normal and thought process normal Skin no wounds General Skin Exam: pallor; Negative for jaundice Lesions: no lesions Rashes: no rashes MDM MDM MDM Narrative Medical decision making narrative: With systemic viral symptoms and predominant GI presentation. 1 L normal saline was ordered since she clinically is dehydrated. She was treated with Zofran for her nausea and vomiting and Imodium for the diarrhea. Will reassess after the liter has infused. Treatment and Re-Evaluation Narrative: Was reassessed at 1425. She states she feels better she looks better. She is had no vomiting in the department or diarrhea. Plan is to discharge to home with prescription for Zofran. Discharge Plan Triage Chief Complaint: Diarrhea ED Provider: Scott Villareal Dx/Rx/DC Orders Clinical Impression: Systemic viral illness, Abdominal pain, vomiting, and diarrhea, Dehydration, mild Instructions: ED Diet Vomiting Diarrhea Prescriptions: New ondansetron [ondansetron] 4 mg tablet,disintegrating 4 mg PO Q8H PRN PRN (Reason: Nausea) Qty: 10 0RF Primary Care Provider: Ai Freeman NP Referrals: Ai Freeman OPHTHALMOLOGY ASSISTANT, OPHTHALMOLOGY ASSISTANT-C [Primary Care Provider] - 3-5 Days if not improving Disposition Disposition: Home, Self Care
[2022-01-16 13:50] VITALS: RESP 16
[2022-01-16] MEDS: Loperamide 2 MG Capsule 4 MG PO (13:52)
[2022-01-16] MEDS: 0.9% Normal Saline 1,000 ML 1000 ML IV (13:52)
[2022-01-16] MEDS: Ondansetron 4 MG/2 ML Vial IV (13:52)
[2022-01-16 14:31] VITALS: RESP 16
== END 2022-01-16 14:53 | disposition home or self-care (01) ==
PROVIDERS: Emergency Provider Emergency Medicine; PCP Nurse Practitioner Family; Visit Provider Emergency Medicine
DX: E86.0 Dehydration (principal); R19.7 Diarrhea, unspecified; R10.9 Unspecified abdominal pain; B34.9 Viral infection, unspecified; R11.2 Nausea with vomiting, unspecified
CPT/HCPCS: 96361; 96374; 99284; J7030; J2405

== ENCOUNTER 2022-04-14 12:30 | Emergency (ER) | payer MEDICAID, SELFPAY ==
[2022-04-14 12:31] VITALS: BP 105/68; PULSE 68; RESP 14; TEMP 36.1; O2SAT 100; BMI 17.9
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
== END 2022-04-14 13:58 | disposition home or self-care (01) ==
LOC: ED 13:52
PROVIDERS: Emergency Provider Emergency Medicine; PCP Nurse Practitioner Family; Visit Provider Emergency Medicine
DX: S60.312A Abrasion of left thumb, initial encounter (principal); V43.52XA Car driver injured in collision with other type car in traffic accident, initial encounter
CPT/HCPCS: 99284

== ENCOUNTER 2022-06-29 12:13 | Emergency (ER) | payer MEDICAID, SELFPAY ==
[2022-06-29 12:14] VITALS: BP 85/66; PULSE 90; RESP 16; TEMP 36.6; O2SAT 100; BMI 17.9
--- NOTE | 2022-06-29 12:56 | ED.VIS.FEGU ---
HPI HPI - Female History of Present Illness Chief Complaint: Narrative Narrative: Patient presents with nausea and vomiting. She is 8 weeks and 3 days . She has had hyperemesis with most of her pregnancies. She does not have any antiemetics at home. She has no abdominal pain. No pelvic cramping. She has no urinary symptoms. No vaginal bleeding. She does not feel lightheaded. PFSH PFSH Medical History ADHD Family history of bipolar disorder Family history of congenital cardiac septal defect Family history of drug abuse GBS screening not performed History of pre-term labor depression spontaneous labor with delivery Seizures Sterilization Subchorionic hematoma in first trimester (spontaneous vaginal delivery) Syncope Home Medications promethazine 12.5 mg tablet 12.5 mg PO TID #14 tabs 06/29/22 [Rx Last Taken Unknown] Allergy/AdvReac Type Severity Reaction Status Date / Time Penicillins Allergy Rash Verified 04/14/22 12:31 sertraline [From Zoloft] AdvReac Other Verified 04/14/22 12:31 Family History Other Family history of congenital heart defect Patient's father is Social History household members: significant other and children Smoking Status: Never smoker substance use type: does not use ROS ROS ED ROS Narrative Past medical history: Reviewed Medications: Reviewed Social history: Noncontributory Review of systems: All systems negative except as indicated General: No fever. She does not feel lightheaded Eyes: No visual changes ENT: No upper airway congestion, normal voice Neck: No neck pain Cardiovascular: No chest pain Respiratory: No shortness of breath or cough Gastrointestinal: No abdominal pain. No diarrhea. Nausea vomiting as in HPI Genitourinary: No dysuria, no other urinary symptoms. No vaginal bleeding Musculoskeletal: Denies myalgias no difficulty with ambulation Skin: No rash EXAM Physical Exam Narrative Exam Narrative: Physical exam General: Well nourished, Well developed, No Acute Distress Head: Normocephalic, Atraumatic Eyes: Conjunctiva not pale ENT: Moist mucous membranes Neck: Supple, Nontender, No lymphadenopathy Cardiovascular: Regular rate, Regular rhythm Respiratory: No distress, CTA bilaterally Abdomen: Soft, Nontender, Nondistended Back: Nontender, Normal Inspection. Negative for: CVA tenderness Extremities: Nontender, No edema Skin: Normal color, No rash Neurological: Alert, Normal Strength, Normal Sensation Psychological: Normal affect Const Vital Signs: 06/29/22 12:14 06/29/22 13:33 Temperature 97.8 F Temperature Source Temporal Pulse Rate 90 Respiratory Rate 16 Respiratory Effort Normal Non-Labored Respiratory Pattern Normal Blood Pressure 85/66 L Blood Pressure Mean 72 Pulse Ox 100 Oxygen Delivery Method Room Air MDM MDM MDM Narrative Medical decision making narrative: Patient has dehydration clinically, she has quite a few ketones on urinalysis but she does not have any uremia. Regardless she has nausea and vomiting this is likely hyperemesis especially that that she does not have any abdominal pain or vaginal bleeding. She was given IV fluids and antiemetics she feels much better at this time. She is to follow-up with her [facility] in the meantime I will give her antiemetics for home. Lab Data Labs: Laboratory Results - last 24 hr 06/29/22 06/29/22 13:01 13:27 Sodium 136 Potassium 3.6 Chloride 103 Carbon Dioxide 23.0 Anion Gap 10 BUN 10 Creatinine 0.63 Estim Creat Clear Calc 100.44 Est GFR (MDRD) Af Amer 151 Est GFR (MDRD) Non-Af 124 BUN/Creatinine Ratio 15.9 Glucose 79 Calcium 9.5 Total Bilirubin 1.80 H AST 8 L ALT 15 Alkaline Phosphatase 55 Total Protein 8.3 H Albumin 4.0 Globulin 4.3 H Albumin/Globulin Ratio 0.9 Urine Color Yellow Urine Clarity Clear Urine pH 6.0 Ur Specific [place] 1.025 Urine Protein 15 H Urine Glucose (UA) Normal Urine Ketones 150 A* Urine Occult Blood Negative Urine Nitrite Negative Urine Bilirubin Negative Urine Urobilinogen Normal Ur Leukocyte Esterase 25 H Urine RBC 0 SEEN Urine WBC 0 SEEN Ur Squamous Epith Cells 0-5 SEEN Urine Bacteria 0 SEEN Urine Mucus 1+ Discharge Plan Triage Chief Complaint: ED Provider: Jose Roman Dx/Rx/DC Orders Clinical Impression: First trimester , Nausea & vomiting Instructions: ED Vomiting (Adult) Prescriptions: New promethazine 12.5 mg tablet 12.5 mg PO TID Qty: 14 0RF Primary Care Provider: Ai Freeman PENOLOGY TEACHER Referrals: Ai Freeman PENOLOGY TEACHER, PENOLOGY TEACHER-C [Primary Care Provider] - Disposition Disposition: Home, Self Care
[2022-06-29 13:23] LABS: ALB/GLOB Ratio 0.9 RATIO (0.9-2.4); AST(SGOT) 8 U/L (15-37); Alanine Aminotransfer ALT/SGPT 15 U/L (13-56); Alkaline Phosphatase 55 U/L (45-117); Anion Gap 10 (5-15); BUN 10 mg/dL (7-18); BUN/Creat Ratio 15.9 RATIO (10-20); Calcium,Total 9.5 mg/dL (8.5-10.1); Chloride 103 mmol/L (98-107); Creatinine, Serum 0.63 mg/dL (0.55-1.02); EST Glomerular Filtration Rate 124 mL/min (>60); Est Glom Filt Rate - Afr Amer 151 mL/min (>60); Estimated Creatinine Clearance 100.44 ml/min; Globulin 4.3 g/dL (2.2-4.2); Glucose 79 mg/dL (74-106); Potassium 3.6 mmol/L (3.5-5.1); Protein, Total 8.3 g/dL (6.4-8.2); Sodium Level 136 mmol/L (136-145)
[2022-06-29] MEDS: Ondansetron 4 MG/2 ML Vial IV (13:23)
[2022-06-29] MEDS: 0.9% Normal Saline 1,000 ML 999 ML IV (13:23)
[2022-06-29 13:29] LABS: Bacteria 0 SEEN /hpf (None Seen); Red Blood Cells-Urine 0 SEEN /hpf (0-5); White Blood Cells 0 SEEN /hpf (0-5)
[2022-06-29 13:37] LABS: Color, Urine Yellow (Yellow); Glucose, Dipstick Normal (Normal); Leukocyte Esterase-Dipstick 25 /ul (Negative); Nitrite-Dipstick Negative (Negative); Occult Blood-Urine Negative /ul (Negative); Protein-Dipstick 15 mg/dl (Negative); Specific Gravity, Urine 1.025 (1.002-1.030); Urine Bilirubin Dipstick Negative (Negative); Urine Clarity Clear (Clear); Urine Urobilinogen Normal (Normal)
[2022-06-29 13:45] LABS: Ketone-Dipstick 150 mg/dl (Negative)
[2022-06-29 13:51] LABS: Mucous, Urine 1+ /hpf (<or=2+); Squamous Epithelial Cells - UA 0-5 SEEN /hpf (5-10)
[2022-06-29] MEDS: Lactated Ringers 1,000 ML 999 ML IV (13:56)
[2022-06-29 15:00] VITALS: RESP 18
== END 2022-06-29 16:14 | disposition home or self-care (01) ==
PROVIDERS: Emergency Provider Emergency Medicine; PCP Nurse Practitioner Family; Visit Provider Emergency Medicine
DX: O21.9 Vomiting of pregnancy, unspecified (principal); E86.0 Dehydration; O99.281 Endocrine, nutritional and metabolic diseases complicating pregnancy, first trimester; Z3A.08 8 weeks gestation of pregnancy
CPT/HCPCS: 80053; 81001; 96361; 96365; 96375; 99282; J7030; J7120; A4216; J2405

== ENCOUNTER 2022-11-16 10:55 | Outpatient (CLI) | payer MEDICAID, SELFPAY ==
[2022-11-16 11:12] VITALS: BP 121/60; PULSE 77; TEMP 36.8; O2SAT 97
[2022-11-16 11:39] VITALS: BMI 21.2
[2022-11-16] MEDS: Lactated Ringers 1,000 ML 999 ML IV (11:40)
[2022-11-16 17:44] VITALS: BP 111/61; PULSE 70
[2022-11-16 17:45] VITALS: PULSE 68; TEMP 36.8; O2SAT 99
[2022-11-16 20:05] VITALS: BP 103/58; PULSE 66
--- NOTE | 2022-11-17 08:17 | HP.PCM.OB_ITS ---
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 Increasing in intensity since this morning. No gross vaginal bleeding or leaking of fluid. She denies any headache or visual changes. She was admitted to [facility] previously and received betamethasone. She was observed and sent home. Her cervix has been unchanged in the office and here since her discharge from [facility]. Maternal Data Information Final CHRIS: 02/06/23 Gestational age: 28 2/7 PFSH [facility] Medical History ADHD Family history of bipolar disorder Family history of congenital cardiac septal defect Family history of drug abuse GBS screening not performed History of pre-term labor depression spontaneous labor with delivery Seizures Sterilization Subchorionic hematoma in first trimester (spontaneous vaginal delivery) Syncope Home Medications docosahexaenoic acid 200 mg capsule ( DHA) 200 mg PO DAILY 11/16/22 [History Last Taken 11/15/22 18:00] famotidine 20 mg tablet 20 mg PO Q12H heartburn 11/16/22 [History Last Taken 11/15/22 18:00] Allergy/AdvReac Type Severity Reaction Status Date / Time Penicillins Allergy Rash Verified 11/16/22 11:39 sertraline [From Zoloft] AdvReac Other Verified 11/16/22 11:39 Family History Other Family history of congenital heart defect Patient's father is Social History household members: significant other and children Smoking Status: Never smoker substance use type: does not use History Elective abortions Hx Para 2 Spontaneous abortions Hx # Term Pregnancies Ectopic pregnancies Hx # Pregnancies Multiple births # of living children NST FHR Rate Baby A Baseline: normal Variability:: Moderate Accelerations:: 10 x 10 Decelerations:: None NST Reactive:: Yes FHR Category:: Category I Uterine Activity:: irreg ctxs FHR Rate Baby B Baseline: normal Variability:: Moderate Accelerations:: 10 x 10 Decelerations:: None NST Reactive:: Yes FHR Category:: Category I Vital Signs Vital Signs Vital Signs: 11/16/22 11:12 11/16/22 11:12 11/16/22 11:12 Temperature Temperature Source Oral Pulse Rate 77 Blood Pressure 121/60 H BP Systolic 121 BP Diastolic 60 Pulse Ox 11/16/22 11:12 11/16/22 11:12 11/16/22 17:44 Temperature 98.3 F Temperature Source Pulse Rate Blood Pressure 111/61 BP Systolic 111 BP Diastolic 61 Pulse Ox 97 11/16/22 17:44 11/16/22 17:45 11/16/22 17:45 Temperature Temperature Source Pulse Rate 70 68 Blood Pressure BP Systolic BP Diastolic Pulse Ox 99 11/16/22 17:45 11/16/22 17:45 11/16/22 17:45 Temperature 98.3 F Temperature Source Temporal Pulse Rate Blood Pressure BP Systolic BP Diastolic Pulse Ox 99 11/16/22 20:05 11/16/22 20:05 Temperature Temperature Source Pulse Rate 66 Blood Pressure 103/58 L BP Systolic 103 BP Diastolic 58 Pulse Ox Weight Weight: 54.34 kg Body Mass Index (BMI) 21.2 Physical Exam Narrative Cervix is 3/80/-2, medium consistency and posterior Const alert and no apparent distress General Appearance: cooperative HEENT normocephalic Resp normal respiratory effort Cardio regular rate GI soft to palpation GI Narrative: gravid, nontender, appropriate for gestational age Extremity no calf tenderness General Extremity: edema Skin no wounds Rashes: No rashes noted Psych activity/motor behavior normal Labs Labs Labs: Blood Type O POSITIVE Antibody Screen NEGATIVE Hct 33.7 % (37-47) L Hgb 10.3 g/dL (12.0-15.0) L Group B Strep DNA Negative (Negative) Rhogam given: No Assessment & Plan (1) 28 weeks gestation of : PLAN: High risk multigravida with monochorionic diamniotic twin gestation with threatened labor. Was observed for hours today. Contractions eventually lessened in intensity. No cervical change. Status post betamethasone already. This was not repeated today. Discharge patient home. labor precautions. Discussed with the patient if she thinks she is in labor before 34 weeks to go to [facility]. Her home is actually closer to the tertiary care center that here and reviewed risks of transport versus risks of transporting herself.
== END 2022-11-16 20:30 | disposition home or self-care (01) ==
LOC: WPOUT 10:58 → WP 10:58
PROVIDERS: PCP Nurse Practitioner Family; Referring Provider Obstetrics & Gynecology; Visit Provider Obstetrics & Gynecology
DX: O47.03 False labor before 37 completed weeks of gestation, third trimester (principal); Z3A.28 28 weeks gestation of pregnancy; O30.033 Twin pregnancy, monochorionic/diamniotic, third trimester
CPT/HCPCS: 96360; 36415; 59025; 59050; 99221; J7120; G0378

== ENCOUNTER 2023-02-28 13:49 | Emergency (ER) | payer MEDICAID, SELFPAY ==
[2023-02-28 13:50] VITALS: BP 112/68; PULSE 84; RESP 16; TEMP 36; O2SAT 98
--- NOTE | 2023-02-28 13:58 | EX.ED.VIS.UR ---
HPI HPI - URI History of Present Illness Chief Complaint: Sore Throat Detail of Chief Complaint: Sore throat last 2 days. Informant: patient Onset/Context/Timing Onset: Today and Yesterday Context: Gradual Onset Timing: Continuous Current Severity: Mild Maximum Severity: Mild Associated Symptoms Associated Symptoms: Positive for Headache; Negative for Vomiting, Diarrhea, Shortness of Breath, Nonproductive cough, Hemoptysis or Productive Cough Narrative Narrative: 22-year-old female no seen past medical history. Sore throat last 2 days. No fever. No vomiting. No significant cough. Able to swallow. Prior similar symptoms: Yes Recent Illness/Hospitalization: No ROS ROS ED ROS Narrative Sore throat. Review of Systems ROS Unobtainable: Denies due to encephalopathy Constitutional Constitutional ED: Denies chills or fever(s) Eyes Eyes: Denies blurry vision ENT ENT ED: Reports sore throat; Denies ear pain or rhinorrhea Cardiovascular Cardiovascular: Denies chest pain or palpitations Respiratory/Chest Respiratory/Chest: Denies cough or dyspnea Gastrointestinal Gastrointestinal: Denies abdominal pain, diarrhea, nausea or vomiting Genitourinary Genitourinary ED: Denies dysuria Musculoskeletal Musculoskeletal: Denies arthralgias Integumentary Denies abscess Neurologic Neurologic: Reports headache(s) Psychiatric Psychiatric: Denies anxiety or depression Hematologic/Lymphatic Hematologic/Lymphatic: Denies easy bleeding or easy bruising Allergic/Immunologic Allergic/Immunologic ED: Denies mouth swelling or tongue swelling PFSH PFSH Medical History ADHD Family history of bipolar disorder Family history of congenital cardiac septal defect Family history of drug abuse GBS screening not performed History of pre-term labor depression spontaneous labor with delivery Seizures Sterilization Subchorionic hematoma in first trimester (spontaneous vaginal delivery) Syncope Home Medications docosahexaenoic acid 200 mg capsule ( DHA) 200 mg PO DAILY 11/16/22 [History Last Taken 11/15/22 18:00] famotidine 20 mg tablet 20 mg PO Q12H heartburn 11/16/22 [History Last Taken 11/15/22 18:00] azithromycin 250 mg tablet (Zithromax Z-Kurt) 250 mg PO DAILY 4 days #4 tabs 02/28/23 [Rx Last Taken Unknown] Allergy/AdvReac Type Severity Reaction Status Date / Time Penicillins Allergy Rash Verified 11/16/22 11:39 sertraline [From Zoloft] AdvReac Other Verified 11/16/22 11:39 Family History Other Family history of congenital heart defect Patient's father is Social History household members: significant other and children Smoking Status: Never smoker substance use type: does not use EXAM Physical Exam Narrative Exam Narrative: Well-appearing 22-year-old female. Vital signs are stable afebrile. Pulse ox 90% on room air no hypoxia. H EENT exam mild posterior pharyngeal erythema. No exudate. No peritonsillar abscess. Able to swallow. No stridor or drooling. Tonsils are not significantly enlarged nor touching. TMs normal. Neck nontender. No lymphadenopathy. Trachea midline. Lungs clear to auscultation bilaterally. Heart regular rhythm rate about 80 no murmur. Abdomen soft nontender. Otherwise exam unremarkable. Const Vital Signs: 02/28/23 13:50 Temperature 96.8 F L Temperature Source Temporal Pulse Rate 84 Respiratory Rate 16 Blood Pressure 112/68 Blood Pressure Mean 82 Pulse Ox 98 Oxygen Delivery Method Room Air Positive well nourished and well developed; Negative for obese, cachectic or contractures General Appearance ED: well developed and NAD; Negative for cachectic, contractures, cyanotic, diaphoretic or pallor Nutritional Appearance: Negative for cachectic or obese HEENT Reports moist mucous membranes; Denies dry mucous membranes normocephalic and atraumatic; Negative for scalp tenderness Face and Sinus: Negative for sinus tenderness Mouth ED: No dry mucous membranes Mouth: No dry mucous membranes Teeth and Gingiva: Negative for caries Throat: posterior oropharynx abnormal Positive for erythema; Negative for exudates Eyes PERRL and EOMs intact bilaterally General Eye ED: Negative for pale conjunctiva or scleral icterus Neck no lymphadenopathy, supple, no meningeal signs and no JVD General: Negative for anterior neck swelling or lymphadenopathy Resp normal respiratory effort and clear to auscultation bilaterally Effort and Inspection: Negative for retractions Auscultation: Negative for rales, rhonchi or wheezes Cardio S1 normal heart sound, S2 normal heart sound and no murmurs Rate: regular rate Rhythm: regular rhythm GI non-tender, non-distended and no masses Inspection: Negative for abdominal distention Auscultation: normoactive bowel sounds Palpation: soft; Negative for tender or guarding Back/Spine no CVA tenderness and normal ROM General Back: Negative for CVA tenderness Cervical Spine: Negative for cervical spine tenderness Thoracic Spine / Upper Back: Negative for thoracic spinal tenderness Lumbar Spine / Lower Back: Negative for lumbar spinal tenderness Sacrum: Negative for tenderness Extremity normal to inspection and full ROM General Extremety ED: Negative for cyanosis, tenderness or other findings General Extremity: Negative for cyanosis or other findings Neuro oriented x3 and CN's II-XII intact bilaterally Sensorium / Orientation: alert, oriented to person, oriented to place and oriented to time; Negative for orientation impaired or lethargic Motor Exam: strength 5/5 throughout Psych mental status grossly normal Appearance: Negative for other Attitude: No agitated Mood & Affect: Negative for depressed, anxious or tearful Skin General Skin Exam: Negative for jaundice or pallor Lesions: no lesions Rashes: no rashes Trauma: Negative for abrasion MDM MDM MDM Narrative Medical decision making narrative: 22-year-old with a 2-day history of a sore throat. Rapid strep obtained. This could also be another viral syndrome such as influenza but patient realized that would not change any treatment so we did not test for influenza nor COVID or other viral etiologies. Repeat exam at 2:44 PM unchanged. Rapid strep positive. Patient has penicillin allergy. Will be treated with Zithromax Z-Kurt. First dose in ER. Warm salt water gargling. Tylenol Motrin for pain. Follow-up as needed. History & Record Review Discussion w/independent historian: Patient Additional record(s) reviewed:: Prior inpatient record, Prior outpatient record, Prior ED visit and Prior labs Lab Data Attestation: I reviewed the patient's lab results. Lab results narrative: Rapid strep PCR is positive. Discharge Plan Triage Chief Complaint: Sore Throat ED Provider: Henrry Castaneda Dx/Rx/DC Orders Clinical Impression: Strep sore throat Instructions: ED Pharyngitis, Strep (Confirmed) Prescriptions: New azithromycin [Zithromax Z-Kurt] 250 mg tablet 250 mg PO DAILY 4 Days Qty: 4 0RF Rx Instructions: start on day 2 of therapy No Action famotidine 20 mg tablet 20 mg PO Q12H Patient Comments: TAKE 1 TABLET BY MOUTH TWICE DAILY DHA 200 mg capsule 200 mg PO DAILY Primary Care Provider: Ai Freeman NP Referrals: Ai Freeman NP, ASSOCIATE DIRECTOR OF NURSING-C [Primary Care Provider] - 1 Week if not improving Activity Restrictions/Additional Instructions: Plenty of fluids and rest. Warm salt water gargling. Motrin and Tylenol for pain and fever. Follow-up with your doctor if not improving or return if a lot worse. Zithromax 1 pill/day for the next 4 days starting tomorrow. Disposition Disposition: Home, Self Care
--- OUTSIDE RECORDS SUMMARY | 2023-02-28 14:20 | XMS RPT_ITS | CCD ---
Author Name Unknown Address [address] [place] [address] Organization [facility] Care Team Providers Care Car Storer Name Role Phone Brian Wilson W Unavailable Unavailable KatieBrian W Unavailable Unavailable Gracie Panchal Unavailable Unavailable HANDWORK, DESTINI K Unavailable Unavailable PATILLA, HERMAN Unavailable Unavailable PATILLA, HERMAN Unavailable Unavailable PATILLA, HERMAN Unavailable Unavailable CUETOKAVON Unavailable Unavailable SAMUELS, HARJEET Unavailable Unavailable PATILLA, HERMAN Unavailable Unavailable PATILLA, HERMAN Unavailable Unavailable SAMUELS, HARJEET Unavailable Unavailable PATILLA, HERMAN Unavailable Unavailable PATILLA, HERMAN Unavailable Unavailable PATILLA, HERMAN Unavailable Unavailable PATILLA, HERMAN Unavailable Unavailable HANDWORK, DESTINI K Unavailable Unavailable KOHRMAN, MADDY H Unavailable Unavailable PATILLA, HERMAN Unavailable Unavailable KOHRMAN, MADDY H Unavailable Unavailable SAMUELS, HARJEET Unavailable Unavailable SAMUELS, HARJEET Unavailable Unavailable PATILLA, HERMAN Unavailable Unavailable KOHRMAN, MADDY H Unavailable Unavailable REFERRED, SELF Unavailable Unavailable JEDACEK, JOE Unavailable Unavailable PATILLA, HERMAN Unavailable Unavailable PATILLA, HERMAN Unavailable Unavailable PATILLA, HERMAN Unavailable Unavailable HANDWORK, DESTINI K Unavailable Unavailable AKUSOBA, JANINE O Unavailable Unavailable JEDACEK, JOE Unavailable Unavailable BIENVENIDO NICKERSON Unavailable Unavailabl e JEDACEK, JOE Unavailable Unavailable RADHA HAGER Unavailable Unavailable Boyd PATTERN CLEANER.Meir AKERS Primary Care Provider Unavailable Primary Care Provider Unavailabl e PROVIDER, UNKNOWN Attending Unavailable PROVIDER, UNKNOWN Admitting Unavailable PATIENT, SELF Referring Unavailable Boyd PATTERN CLEANER.Meir AKERS Primary Care Provider Boyd BOUDREAUXN.DELPHINE, Meir Primary Care Provider Boyd PATTERN CLEANER.GEOSPATIAL EXTRACTOR ANALYSIS, Meir Primary Care Provider [facility] PATTERN CLEANER.GEOSPATIAL EXTRACTOR ANALYSIS, [facility] Primary Care Provider RAMONA DO-FACOGYESSI Attending Unavail able NO FAMILY PHYSICIAN, 837 Primary Care Unavail able RAMONA DO-FACOG, YESSI Paige Attending Unavail able NO FAMILY PHYSICIAN, 837 Primary Care Unavail able RAMONA DO-FACOG, YESSI Paige Attending Unavail able NO FAMILY PHYSICIAN, 837 Primary Care Unavail able CHAPINCITO ZAVALA Referring Unavailable BOYD, MEIR Primary Care Unavailable KIMANI NÚÑEZ Referring Unavailable LAURI KESSLER Attending Unavailable BOYD, MEIR Primary Care Unavailable KIMANI NÚÑEZ Attending Unavailable BOYD, MEIR Attending Unavailable BOYD, MEIR Primary Care Unavailable BOYD, MEIR Attending Unavailable BOYD, MEIR Primary Care Unavailable BOYD, MEIR Primary Care Unavailable AMNA ZAVALACA L Referring Unavailable BOYD, MEIR Primary Care Unavailable ENEDINA ZAVALAECCA L Referring Unavailable BOYD, MEIR Primary Care Unavailable CHAPINCITO ZAVALA Attending Unavailable BOYD, MEIR Primary Care Unavailable LUCAS CHAPINCITO L Referring Unavailable BOYD, MEIR Primary Care Unavailable WILTON, KARMON Referring Unavailable BOYD, MEIR Attending Unavailable BOYD, MEIR Primary Care Unavailable BOYD, MEIR Primary Care Unavailable BOYD, MEIR Primary Care Unavailable BOYD, MEIR Primary Care Unavailable WILTON, KARMON Referring Unavailable BOYD, MEIR Primary Care Unavailable WILTON, KARMON Referring Unavailable BOYD, MEIR Primary Care Unavailable LUCAS CHAPINCITO L Referring Unavailable BOYD, MEIR Primary Care Unavailable LUCAS CHAPINCITO L Referring Unavailable KIMANI NÚÑEZ Attending Unavailable BOYD, MEIR Primary Care Unavailable LAURI KESSLER Attending Unavailable BOYD, MEIR Primary Care Unavailable ANA MARIA THOMPSON Referring Unavail able BOYD, MEIR Primary Care Unavailable ENEDINA ZAVALAECCA L Referring Unavailable BOYD, MEIR Primary Care Unavailable ENEDINA ZAVALAECCA Damaris Referring Unavailable PAM YARBROUGH Attending Unavailable BOYD, MEIR Primary Care Unavailable LUCAS, CHAPINCITO L Referring Unavailable BOYD, MEIR Primary Care Unavailable WILTON, KARMON Referring Unavailable BOYD, MEIR Primary Care Unavailable WILTON, KARMON Referring Unavailable BOYD, MEIR Primary Care Unavailable LUCAS, CHAPINCITO L Attending Unavailable BOYD, MEIR Primary Care Unavailable EV CHANG Attending Unavailable WILTON, KARMON Referring Unavailable BOYD, MEIR Primary Care Unavailable LUCAS, CHAPINCITO L Referring Unavailable YULIANA CARLOS Attending Unavailable BOYD, MEIR Primary Care Unavailable LUCAS, CHAPINCITO L Referring Unavailable LUCAS, CHAPINCITO L Attending Unavailable BOYD, MEIR Primary Care Unavailable ANA MARIA THOMPSON Referring Unavail able BOYD, MEIR Primary Care Unavailable WILTON, KARMON Referring Unavailable TUSHAR SEO Attending Unavailable WILTON, KARMON Referring Unavailable BOYD, MEIR Primary Care Unavailable BOYD, MEIR Primary Care Unavailable WILTON, KARMON Referring Unavailable BOYD, MEIR Primary Care Unavailable WILTON, KARMON Attending Unavailable ANA MARIA THOMPSON Attending Unavail able BOYD, MEIR Primary Care Unavailable WILTON, KARMON Referring Unavailable BOYD, MEIR Primary Care Unavailable BOYD, MEIR Primary Care Unavailable BOYD, MEIR Primary Care Unavailable WILTON, KARMON Attending Unavailable JESSICA BARON Admitting Unavailable JESSICA BRAON Attending Unavailable BOYD, MEIR Primary Care Unavailable BOYD, MEIR Primary Care Unavailable KESSLERMARLOE Referring Unavailable BOYD, MEIR Primary Care Unavailable BOYD, MEIR Primary Care Unavailable MALIK CHERRY Attending Unavailable KESSLER, LAURI Referring Unavailable BOYD, MEIR Primary Care Unavailable MALIK CHERRY Attending Unavailable NAGI LAURI Referring Unavailable OPAL MALDONADO Admitting Unavailable OPAL MALDONADO Attending Unavailable BOYD, MEIR Primary Care Unavailable HIRA YU Admitting Unavailable BOYD, MEIR Primary Care Unavailable DESIREE MAYO Attending Unavailable BOYD, MEIR Primary Care Unavailable SOZEN, COLUNGA Admitting Unavailable SOZEN, COLUNGA Attending Unavailable ABIGAIL PARKER Attending Unavailab BOYDENEDINAMEIR Primary Care Unavailable HIRA YU Admitting Unavailable HIRA YU Admitting Unavailable HIRA YU Attending [facility] Unavailable Allergies Allergy Classification Reported Allergen(s) Allergy Type Date of Onset Reaction(s) Facility (20 sources) Penicillins; Translations: [penicillins] Propensity to adverse reactions to drug (disorder) 4 [facility] Repository (20 sources) Sertraline; Translations: [SERTRALINE] Drug Allergy 0 Intolerance, Upset Stomach [facility] Work Phone: (2 sources) Amoxicillin; Translations: [AMOXICILLIN] Drug Allergy [address] [facility] Medications Current Medications Medication Drug Class(es) Dates Sig (Normalized) Sig (Original) cholecalciferol 0.125 mg oral capsule (1 source) Vitamin D Start: 02-19-2021 take 1 capsule by mouth once daily Cholecalciferol 125 MCG (5000 UT) CAPS Take 1 Capsule by mouth daily. 0 02/19/2021 Active doxycycline monohydrate 100 mg oral tablet (1 source) Tetracycline-cl ass Drug Start: 06-02-2022 End: 06-09-2022 take 1 tablet by mouth twice daily doxycycline monohydrate 100 mg tablet Indications: Bacterial sinusitis Take 1 tablet by mouth twice daily for 7 days. 14 tablet 0 06/02/2022 06/09/2022 Active Completed/Discontinued Medications Medication Drug Class(es) Dates Sig (Normalized) Sig (Original) 1.1 ml HYDROXYprogesterone caproate (shelter) 250 mg/ml auto-injector (20 sources) Start: 06-22-2021 End: 05-28-2022 inject 1.1 mL by subcutaneous injection every week HYDROXYprogest,PF,, preg presv, (YUIR, PF,) 275 mg/1.1 mL auto-injector Inject 1.1 mL subcutaneously one time a week for 21 doses. 4.4 mL 4 06/22/2021 05/28/2022 Discontinued Problems Active Problems Problem Classification Problem Date Documented Da te Episodic/Chronic Abdominal pain (1 source) Indigestion; Translations: [Epigastric pain] 10-14-2022 Episodic Anxiety disorders (1 source) Anxiety; Translations: [Anxiety disorder, unspecified] Chronic Deficiency and other anemia (1 source) Iron deficiency anemia, unspecified; Translations: [Maternal iron deficiency anemia complicating , second trimester] Onset: 11-09-2022 Episodic Diabetes or abnormal glucose tolerance complicating ; childbirth; or the puerperium (10 sources) Abnormal glucose level; Translations: [Abnormal glucose complicating ] Onset: 06-21-2020 11-30-2022 Episodic Disorders of teeth and jaw (1 source) Toothache; Translations: [Other specified disorders of teeth and supporting structures] Episodic Early or threatened labor (20 sources) labor without delivery; Translations: [ labor without delivery, second trimester] Onset: 11-25-2021 11-08-2022 Episodic Epilepsy; convulsions (1 source) Epilepsy, unspecified, intractable, without status epilepticus; Translations: [Epilepsy, unspecified, intractable, without status epilepticus] Onset: 07-06-2017 Chronic Epilepsy; convulsions (20 sources) Seizure; Translations: [Unspecified convulsions] 04-29-2021 Episodic Headache; including migraine (1 source) Migraine; Translations: [Migraine, unspecified, not intractable, without status migrainosus] Onset: 08-23-2013 04-11-2021 Chronic Immunizations and screening for infectious disease (4 sources) Vaccination needed; Translations: [Encounter for immunization] Episodic Inflammatory diseases of female pelvic organs (1 source) Bacterial vaginosis; Translations: [Acute vaginitis] 11-02-2022 Episodic Mood disorders (1 source) Major depression, single episode; Translations: [Major depressive disorder, single episode, unspecified] Onset: 08-23-2013 04-11-2021 Chronic Normal and/or delivery (20 sources) Encounter for supervision of normal , unspecified, unspecified trimester; Translations: [Normal ] Onset: 09-11-2017 Episodic Other complications of ; puerperium affecting management of mother (1 source) Suspected disorder; Translations: [Maternal care for (suspected) abnormality and damage, unspecified, fetus 1] 12-01-2022 Episodic Other complications of ; puerperium affecting management of mother (1 source) Maternal care for (suspected) abnormality and damage, unspecified, fetus 1; Translations: [Maternal care for (suspected) abnormality and damage, unspecified, fetus 1] Onset: 12-01-2022 Episodic Other complications of (20 sources) Anemia in mother complicating , childbirth AND/OR puerperium; Translations: [Anemia complicating , third trimester] Onset: 11-09-2022 Chronic Other complications of (19 sources) Anemia of ; Translations: [Anemia complicating , unspecified trimester] Onset: 11-07-2022 11-08-2022 Chronic Other complications of (2 sources) Anemia during - baby not yet delivered; Translations: [Anemia complicating , second trimester] 11-09-2022 Chronic Other complications of (1 source) Anemia complicating , second trimester; Translations: [Maternal iron deficiency anemia complicating , second trimester] Onset: 11-09-2022 Chronic Other complications of (20 sources) H/O: premature delivery; Translations: [Supervision of other high risk pregnancies, unspecified trimester] Onset: 04-29-2021 05-01-2021 Episodic Other complications of (11 sources) Uterine size for dates discrepancy; Translations: [Uterine size-date discrepancy, second trimester] Onset: 08-21-2021 Episodic Other complications of (20 sources) High risk ; Translations: [Supervision of high risk , unspecified, second trimester] Onset: 04-29-2021 Episodic Other complications of (1 source) Heartburn; Translations: [Other specified related conditions, third trimester] Episodic Other complications of (11 sources) Short cervical length in ; Translations: [Cervical shortening, second trimester] Onset: 11-05-2022 11-08-2022 Episodic Other complications of (2 sources) Supervision of other high risk pregnancies, unspecified trimester; Translations: [History of delivery, currently ] Onset: 07-09-2022 Episodic Other female genital disorders (1 source) Pruritus of vagina; Translations: [Other specified noninflammatory disorders of vagina] 10-29-2022 Episodic Other female genital disorders (1 source) Personal history of pre-term labor; Translations: [History of delivery] Onset: 10-14-2022 Episodic Other gastrointestinal disorders (20 sources) Abnormal intestinal absorption; Translations: [Intestinal malabsorption, unspecified] Onset: 11-09-2022 11-09-2022 Chronic Other gastrointestinal disorders (1 source) Intestinal malabsorption, unspecified; Translations: [Impaired intestinal absorption] Onset: 11-09-2022 Chronic Other nervous system disorders (2 sources) Disturbance of attention; Translations: [Attention and concentration deficit] Chronic Other screening for suspected conditions (not mental disorders or infectious disease) (9 sources) Patient encounter status; Translations: [Encounter for screening, unspecified] Onset: 08-23-2013 Episodic Other skin disorders (1 source) Rash and other nonspecific skin eruption; Translations: [Rash and other nonspecific skin eruption] Onset: 08-22-2017 Episodic Other upper respiratory infections (1 source) Bacterial sinusitis; Translations: [Chronic sinusitis, unspecified] Chronic Polyhydramnios and other problems of amniotic cavity (20 sources) Subchorionic hematoma; Translations: [Other specified disorders of amniotic fluid and membranes, first trimester, not applicable or unspecified] Onset: 05-09-2021 05-09-2021 Episodic Residual codes; unclassified (2 sources) Gestation period, 12 weeks; Translations: [12 weeks gestation of ] Episodic Residual codes; unclassified (3 sources) Gestation period, 16 weeks; Translations: [16 weeks gestation of ] Episodic Residual codes; unclassified (2 sources) Gestation period, 19 weeks; Translations: [19 weeks gestation of ] Episodic Residual codes; unclassified (2 sources) Gestation period, 22 weeks; Translations: [22 weeks gestation of ] Episodic Residual codes; unclassified (1 source) Gestation period, 24 weeks; Translations: [24 weeks gestation of ] Episodic Residual codes; unclassified (3 sources) Gestation period, 23 weeks; Translations: [23 weeks gestation of ] Episodic Residual codes; unclassified (14 sources) Gestation period, 27 weeks; Translations: [27 weeks gestation of ] Onset: 11-04-2022 Episodic Residual codes; unclassified (3 sources) Gestation period, 29 weeks; Translations: [29 weeks gestation of ] Episodic Residual codes; unclassified (4 sources) Gestation period, 31 weeks; Translations: [31 weeks gestation of ] Episodic Residual codes; unclassified (2 sources) Gestation period, 32 weeks; Translations: [32 weeks gestation of ] Episodic Residual codes; unclassified (3 sources) Gestation period, 33 weeks; Translations: [33 weeks gestation of ] Episodic Residual codes; unclassified (1 source) Gestation period, 34 weeks; Translations: [34 weeks gestation of ] Episodic Residual codes; unclassified (2 sources) Gestation period, 35 weeks; Translations: [35 weeks gestation of ] Episodic Residual codes; unclassified (1 source) Gestation period, 13 weeks; Translations: [13 weeks gestation of ] Episodic Residual codes; unclassified (20 sources) History of clinical finding in subject; Translations: [Personal history of other specified conditions] 07-09-2022 Episodic Residual codes; unclassified (1 source) Gestation period, 18 weeks; Translations: [18 weeks gestation of ] 09-10-2022 Episodic Residual codes; unclassified (1 source) 19 weeks gestation of ; Translations: [19 weeks gestation of ] Onset: 10-06-2022 Episodic Residual codes; unclassified (2 sources) Gestation period, 25 weeks; Translations: [25 weeks gestation of ] 10-29-2022 Episodic Residual codes; unclassified (1 source) 23 weeks gestation of ; Translations: [23 weeks gestation of ] Onset: 10-29-2022 Episodic Residual codes; unclassified (1 source) History of uterine scar from previous surgery; Translations: [S/P section] Onset: 12-24-2022 Episodic Syncope (20 sources) Syncope; Translations: [Syncope and collapse] Onset: 04-11-2021 04-05-2018 Episodic Unclassified (1 source) Non-Chemotherapy Treatment Onset: 11-17-2022 Past or Other Problems Problem Classification Problem Date Documented Date Episodic/Chronic Allergic reactions (1 source) Allergy status to penicillin; Translations: [Hx of penicillin allergy] Onset: 07-10-2022 Episodic Contraceptive and procreative management (20 sources) Sterilization requested; Translations: [Encounter for sterilization] Onset: 09-18-2021 Episodic Diabetes mellitus without complication (1 source) Increased glucose level; Translations: [Other abnormal glucose] Onset: 06-21-2020 04-11-2021 Episodic Other circulatory disease (1 source) History of hypotension; Translations: [Personal history of other diseases of the circulatory system] Onset: 01-25-2020 04-11-2021 Episodic Other complications of (20 sources) Nausea and vomiting; Translations: [Vomiting of , unspecified] Onset: 01-25-2020 04-29-2021 Episodic Other complications of (20 sources) Finding of pattern of ; Translations: [Supervision of other high risk pregnancies, unspecified trimester] Onset: 04-29-2021 04-29-2021 Episodic Other complications of (20 sources) on oral contraceptive; Translations: [Supervision of other high risk pregnancies, unspecified trimester] Onset: 04-29-2021 04-29-2021 Episodic Other complications of (20 sources) Poor growth affecting management; Translations: [Maternal care for other known or suspected poor growth, third trimester, fetus 1] Onset: 08-21-2021 Episodic Other complications of (1 source) Supervision of other high risk pregnancies, second trimester; Translations: [Supervision of other high risk pregnancies, second trimester] Onset: 09-15-2022 Episodic Residual codes; unclassified (20 sources) H/O: depression; Translations: [Personal history of other complications of , childbirth and the puerperium] Onset: 01-25-2020 04-29-2021 Episodic Residual codes; unclassified (20 sources) FH: Congenital heart disease; Translations: [Family history of other congenital malformations, deformations and chromosomal abnormalities] Onset: 01-25-2020 01-25-2020 Episodic Residual codes; unclassified (20 sources) History of previous intrauterine growth restricted ; Translations: [Personal history of other complications of , childbirth and the puerperium] Onset: 07-09-2022 07-09-2022 Episodic Residual codes; unclassified (1 source) 13 weeks gestation of ; Translations: [13 weeks gestation of ] Onset: 08-04-2022 Episodic Results Test Name Value Interpretation Reference Range Facil ity Vital Signs Date Time Vital Sign Value Performing Clinician Skinny palmer 12-23-2022 11:21040 Body weight 59.42 kg Ana Maria Sanchez MD Work Phone: [facility] 12-23-2022 11:21-040 Diastolic blood pressure 77 mm[Hg] Ana Maria Sanchez MD Work Phone: [facility] 12-23-2022 11:21-0400 Systolic blood pressure 113 mm[Hg] Ana Maria Sanchez MD Work Phone: [facility] 12-18-2022 08:54-0400 Diastolic blood pressure 61 mm[Hg] Tushar Seo MD Work Phone: [facility] 12-18-2022 08:54-0400 Heart rate 76 /min Tushar Seo MD Work Phone: [facility] 12-18-2022 08:54-0400 Systolic blood pressure 95 mm[Hg] Tushar Seo MD Work Phone: [facility] 12-17-2022 10:29-0400 Body weight 57.15 kg Ev Chang MD Work Phone: [facility] 12-17-2022 10:29-0400 Diastolic blood pressure 72 mm[Hg] Ev Chang MD Work Phone: [facility] 12-17-2022 10:29-0400 Heart rate 88 /min vE Chang MD Work Phone: [facility] 12-17-2022 10:29-0400 Systolic blood pressure 104 mm[Hg] Ev Chang MD Work Phone: [facility] 12-10-2022 08:38-0400 Body weight 57.34 kg Kimani Núñez MD Work Phone: [facility] 12-10-2022 08:38-0400 Diastolic blood pressure 62 mm[Hg] Kimani Núñez MD Work Phone: [facility] 12-10-2022 08:38-0400 Systolic blood pressure 92 mm[Hg] Kimani Núñez MD Work Phone: [facility] 12-10-2022 08:00-0400 Body height 160 cm Ob Ultrasound Work Phone: [facility] 12-10-2022 08:00-0400 Body weight 57.61 kg Ob Ultrasound Work Phone: [facility] 11-26-2022 09:16-0400 Body weight 56.16 kg Pam Yarbrough PATTERN CLEANER.CNM Work Phone: [facility] 11-26-2022 09:16-0400 Diastolic blood pressure 54 mm[Hg] Pam Yarbrough PATTERN CLEANER.CNM Work Phone: [facility] 11-26-2022 09:16-0400 Systolic blood pressure 90 mm[Hg] Pam Yarbrough PATTERN CLEANER.CNM Work Phone: [facility] 11-12-2022 10:35-0400 Body weight 53.52 kg Chapincito Zavala MD Work Phone: [facility] 11-12-2022 10:35-0400 Diastolic blood pressure 54 mm[Hg] Chapincito Zavala MD Work Phone: [facility] 11-12-2022 10:35-0400 Systolic blood pressure 92 mm[Hg] Chapincito Zavala MD Work Phone: [facility] 10-29-2022 11:52-0400 Body weight 53.8 kg Yuliana Carlos MD Work Phone: [facility] 10-29-2022 11:52-0400 Diastolic blood pressure 70 mm[Hg] Yuliana Carlos MD Work Phone: [facility] 10-29-2022 11:52-0400 Systolic blood pressure 110 mm[Hg] Yuliana Carlos MD Work Phone: [facility] 10-14-2022 14:00-0400 Body weight 51.26 kg Chapincito Zavala MD Work Phone: [facility] 10-14-2022 14:00-0400 Diastolic blood pressure 56 mm[Hg] Chapincito Zavala MD Work Phone: [facility] 10-14-2022 14:00-0400 Systolic blood pressure 98 mm[Hg] Chapincito Zavala MD Work Phone: [facility] 09-24-2022 08:49-0400 Body height 160 cm Ob Ultrasound Work Phone: [facility] 09-24-2022 08:49-0400 Body weight 49.9 kg Ob Ultrasound Work Phone: [facility] 09-10-2022 10:01-0400 Body weight 48.53 kg Ob Ultrasound Work Phone: [facility] 09-04-2022 12:07-0400 Body temperature 98.29 [degF] Usman Ang MD Work Phone: [facility] 09-04-2022 12:07-0400 Body weight 47.17 kg Usman Ang MD Work Phone: [facility] 09-04-2022 12:07-0400 Diastolic blood pressure 66 mm[Hg] Usman Ang MD Work Phone: [facility] 09-04-2022 12:07-0400 Heart rate 118 /min Usman Ang MD Work Phone: [facility] 09-04-2022 12:07-0400 Respiratory rate 18 /min Usman Ang MD Work Phone: [facility] 09-04-2022 12:07-0400 SaO2% (BldA) [Mass fraction] 97 % Usman Ang MD Work Phone: [facility] 09-04-2022 12:07-0400 Systolic blood pressure 110 mm[Hg] Usman Ang MD Work Phone: [facility] 08-27-2022 09:13-0400 Diastolic blood pressure 60 mm[Hg] Kimani Núñez MD Work Phone: [facility] 08-27-2022 09:13-0400 Systolic blood pressure 100 mm[Hg] Kimani Núñez MD Work Phone: [facility] 08-27-2022 09:02-0400 Body height 160 cm Ob Ultrasound Work Phone: [facility] 08-27-2022 09:02-0400 Body weight 46.72 kg Ob Ultrasound Work Phone: [facility] 08-04-2022 15:05-0400 Body weight 44 kg Kimani Núñez MD Work Phone: [facility] 08-04-2022 15:05-0400 Diastolic blood pressure 58 mm[Hg] Kimani Núñez MD Work Phone: [facility] 08-04-2022 15:05-0400 Systolic blood pressure 96 mm[Hg] Kimani Núñez MD Work Phone: [facility] 06-02-2022 12:21-0400 Body temperature 97.9 [degF] Mat Fredrick PATTERN CLEANER.GEOSPATIAL EXTRACTOR ANALYSIS Work Phone: [facility] 06-02-2022 [id number] Body weight 46.18 kg Mat Fredrick PATTERN CLEANER.GEOSPATIAL EXTRACTOR ANALYSIS Work Phone: [facility] 06-02-2022 12:21-0400 Diastolic blood pressure 60 mm[Hg] Mat Fredrick PATTERN CLEANER.GEOSPATIAL EXTRACTOR ANALYSIS Work Phone: [facility] 06-02-2022 12:21-0400 Heart rate 94 /min Mat Fredrick PATTERN CLEANER.GEOSPATIAL EXTRACTOR ANALYSIS Work Phone: [facility] 06-02-2022 12:21-0400 Respiratory rate 16 /min Mat Fredrick PATTERN CLEANER.GEOSPATIAL EXTRACTOR ANALYSIS Work Phone: [facility] 06-02-2022 12:21-0400 SaO2% (BldA) [Mass fraction] 98 % Mat Fredrick PATTERN CLEANER.GEOSPATIAL EXTRACTOR ANALYSIS Work Phone: [facility] 06-02-2022 12:21-0400 Systolic blood pressure 96 mm[Hg] Mat Fredrick PATTERN CLEANER.GEOSPATIAL EXTRACTOR ANALYSIS Work Phone: [facility] 05-28-2022 13:56-0400 Body temperature 98.8 [degF] Usman Ang MD Work Phone: [facility] 05-28-2022 13:56-0400 Body weight 45.99 kg Usman Ang MD Work Phone: [facility] 05-28-2022 13:56-0400 Diastolic blood pressure 64 mm[Hg] Usman Ang MD Work Phone: [facility] 05-28-2022 13:56-0400 Heart rate 71 /min Usman Ang MD Work Phone: [facility] 05-28-2022 13:56-0400 Respiratory rate 16 /min Usman Ang MD Work Phone: [facility] 05-28-2022 13:56-0400 SaO2% (BldA) [Mass fraction] 100 % Usman Ang MD Work Phone: [facility] 05-28-2022 13:56-0400 Systolic blood pressure 110 mm[Hg] Usman Ang MD Work Phone: [facility] 02-26-2022 14:06-0500 Body weight 47.17 kg Meir Boyd PATTERN CLEANER.GEOSPATIAL EXTRACTOR ANALYSIS Work Phone: [facility] 02-26-2022 14:06-0500 Diastolic blood pressure 60 mm[Hg] Meir Boyd PATTERN CLEANER.GEOSPATIAL EXTRACTOR ANALYSIS Work Phone: [facility] 02-26-2022 14:06-0500 Heart rate 78 /min Meir Boyd PATTERN CLEANER.GEOSPATIAL EXTRACTOR ANALYSIS Work Phone: [facility] 02-26-2022 14:06-0500 Respiratory rate 16 /min Meir Boyd PATTERN CLEANER.GEOSPATIAL EXTRACTOR ANALYSIS Work Phone: [facility] 02-26-2022 14:06-0500 SaO2% (BldA) [Mass fraction] 96 % Meir Boyd PATTERN CLEANER.GEOSPATIAL EXTRACTOR ANALYSIS Work Phone: [facility] 02-26-2022 14:06-0500 Systolic blood pressure 98 mm[Hg] Meir Boyd PATTERN CLEANER.GEOSPATIAL EXTRACTOR ANALYSIS Work Phone: [facility] 12-24-2021 09:11-0400 Body weight 50.89 kg Pam Figueroats PATTERN CLEANER.CNM Work Phone: [facility] 12-24-2021 09:11-0400 Diastolic blood pressure 60 mm[Hg] Pam Plotts PATTERN CLEANER.CNM Work Phone: [facility] 12-24-2021 09:11-0400 Systolic blood pressure 98 mm[Hg] Pam Yarbrough PATTERN CLEANER.CNM Work Phone: [facility] 11-13-2021 09:32-0400 Body weight 55.79 kg Yuliana Carlos MD Work Phone: [facility] 11-13-2021 09:32-0400 Diastolic blood pressure 64 mm[Hg] Yuliana Carlos MD Work Phone: [facility] 11-13-2021 09:32-0400 Systolic blood pressure 110 mm[Hg] Yuliana Carlos MD Work Phone: [facility] 11-06-2021 10:16-0400 Body height 160 cm Lauri Kessler MD Work Phone: [facility] 11-06-2021 10:16-0400 Body weight 54.43 kg Lauri Kessler MD Work Phone: [facility] 11-06-2021 10:16-0400 Diastolic blood pressure 58 mm[Hg] Lauri Kessler MD Work Phone: [facility] 11-06-2021 10:16-0400 Systolic blood pressure 94 mm[Hg] Lauri Kessler MD Work Phone: [facility] 11-06-2021 10:01-0400 Diastolic blood pressure 62 mm[Hg] Kimani Núñez MD Work Phone: [facility] 11-06-2021 10:01-0400 Systolic blood pressure 84 mm[Hg] Kimani Núñez MD Work Phone: [facility] 10-30-2021 09:30-0400 Body weight 54.52 kg Pam Yarbrough PATTERN CLEANER.CNM Work Phone: [facility] 10-30-2021 09:30-0400 Diastolic blood pressure 60 mm[Hg] Pam Yarbrough PATTERN CLEANER.CNM Work Phone: [facility] 10-30-2021 09:30-0400 Systolic blood pressure 100 mm[Hg] Pam Plotts PATTERN CLEANER.CNM Work Phone: [facility] 10-16-2021 09:35-0400 Body weight 52.89 kg Kimani Núñez MD Work Phone: [facility] 10-16-2021 09:35-0400 Diastolic blood pressure 54 mm[Hg] Kimani Núñez MD Work Phone: [facility] 10-16-2021 09:35-0400 Systolic blood pressure 88 mm[Hg] Kimani Núñez MD Work Phone: [facility] 10-02-2021 09:20-0400 Body weight 52.62 kg Pam Plotts PATTERN CLEANER.CNM Work Phone: [facility] 10-02-2021 09:20-0400 Diastolic blood pressure 58 mm[Hg] Pam Plotts PATTERN CLEANER.CNM Work Phone: [facility] 10-02-2021 09:20-0400 Systolic blood pressure 90 mm[Hg] Pam Plotts PATTERN CLEANER.CNM Work Phone: [facility] 09-18-2021 11:09-0400 Body weight 51.71 kg Yuilana Carlos MD Work Phone: [facility] 09-18-2021 11:09-0400 Diastolic blood pressure 58 mm[Hg] Yuliana Carlos MD Work Phone: [facility] 09-18-2021 11:09-0400 Systolic blood pressure 104 mm[Hg] Yuliana Carlos MD Work Phone: [facility] 08-21-2021 10:00-0400 Body weight 48.08 kg Pam Plotts PATTERN CLEANER.CNM Work Phone: [facility] 08-21-2021 10:00-0400 Diastolic blood pressure 60 mm[Hg] Pam Plotts PATTERN CLEANER.CNM Work Phone: [facility] 08-21-2021 10:00-0400 Systolic blood pressure 100 mm[Hg] Pam Plotts PATTERN CLEANER.CNM Work Phone: [facility] 08-14-2021 11:45-0400 Body height 160 cm Lauri Kessler MD Work Phone: [facility] 08-14-2021 11:45-0400 Body weight 48.08 kg Lauri Kessler MD Work Phone: [facility] 07-24-2021 14:30-0400 Body weight 47.17 kg Yuliana Carlos MD Work Phone: [facility] 07-24-2021 14:30-0400 Diastolic blood pressure 60 mm[Hg] Yuliana Carlos MD Work Phone: [facility] 07-24-2021 14:30-0400 Systolic blood pressure 100 mm[Hg] Yuliana Carlos MD Work Phone: [facility] 07-03-2021 14:49-0400 Body weight 45.18 kg Yuliana Carlos MD Work Phone: [facility] 07-03-2021 14:49-0400 Diastolic blood pressure 42 mm[Hg] Yuliana Carlos MD Work Phone: [facility] 07-03-2021 14:49-0400 Systolic blood pressure 80 mm[Hg] Yuliana Carlos MD Work Phone: [facility] 06-05-2021 09:26-0400 Body weight 45.18 kg Kimani Núñez MD Work Phone: [facility] 06-05-2021 09:26-0400 Diastolic blood pressure 60 mm[Hg] Kimani Núñez MD Work Phone: [facility] 06-05-2021 09:26-0400 Systolic blood pressure 88 mm[Hg] Kimani Núñez MD Work Phone: [facility] Encounters Encounter Date Encounter Type Care Provider Facility Start: 12-24-2022 End: 12-27-2022 Evaluation and management of inpatient [facility] Facility:[facility] Start: 12-23-2022 End: 12-23-2022 Patient encounter procedure Ana Maria Sanchez MD Work Phone: OB/Gynecology Procedures Date Procedure Procedure Detail Performing Clinician Start: 12-24-2022 Antibody screen JESSICA AGUAYO Plan of Treatment Date Care Activity Detail Author Start: 05-21-2049 Shingles (RZV) Vaccine (1 of 2) Shingles (RZV) Vaccine (1 of 2) [facility] Start: 11-12-2032 Urine microalbumin profile DTaP,Tdap,Td Vaccine (11 - Td or Tdap) [facility] Start: 09-19-2031 Urine microalbumin profile [facility] Start: 06-20-2030 Tetanus vaccination Tetanus (Td) Booster [facility] Start: 06-20-2030 Urine microalbumin profile DTAP,TDAP,TD (9 - Td or Tdap) [facility] Start: 05-01-2024 PAP TESTING PAP TESTING [facility] Start: 07-11-2023 CHLAMYDIA SCREENING (18-24) CHLAMYDIA SCREENING (18-24) [facility] Start: 07-11-2023 GC (GONORRHEA) SCREENING (18-24) GC (GONORRHEA) SCREENING (18-24) [facility] Start: 11-30-2022 End: 01-30-2023 GEST GLUC NICHOLAS, 3-HR, 100 GM, FASTING GEST GLUC NICHOLAS, 3-HR, 100 GM, FASTING Lab Routine Abnormal glucose complicating Expected: 11/30/2022, Expires: 01/30/2023 [facility] Work Phone: Immunizations Immunization Date Immunization Notes Care Provider [facility] 11-12-2022 tetanus toxoid, redu esequiel diphtheria toxoid, and acellular pertussis vaccine, adsorbed Chapincito Zavala MD Work Phone: [facility] 11-16-2021 influenza, seasonal, injectable Kimani Núñez MD Work Phone: [facility] Work Phone: 11-16-2021 influenza virus vaccine, unspecified formulation Ob Ultrasound Work Phone: [facility] 09-18-2021 tetanus toxoid, redu esequiel diphtheria toxoid, and acellular pertussis vaccine, adsorbed Yuliana Carlos MD Work Phone: [facility] 06-20-2020 tetanus toxoid, redu esequiel diphtheria toxoid, and acellular pertussis vaccine, adsorbed Kimani Núñez MD Work Phone: [facility] 02-02-2020 influenza, injectabl e, quadrivalent, contains preservative Kimani Núñez MD Work Phone: [facility] 03-03-2018 tetanus toxoid, redu esequiel diphtheria toxoid, and acellular pertussis vaccine, adsorbed Kimani Núñez MD Work Phone: [facility] 12-27-2017 influenza, injectabl e, quadrivalent, contains preservative Kimani Núñez MD Work Phone: [facility] 02-05-2016 meningococcal B vaccine, recombinant, OMV, adjuvanted Acacia Alexander DMD, MD Work Phone: [facility] 01-01-2016 meningococcal B vaccine, recombinant, OMV, adjuvanted Acacia Alexander DMD, MD Work Phone: [facility] 08-15-2015 meningococcal polysaccharide (groups A, C, Y and W-135) diphtheria toxoid conjugate vaccine (MCV4P) Kimani Núñez MD Work Phone: [facility] 01-03-2015 influenza, seasonal, injectable Kimani Núñez MD Work Phone: [facility] 11-29-2013 influenza, seasonal, injectable Kimani Núñze MD Work Phone: [facility] 11-06-2013 meningococcal polysaccharide (groups A, C, Y and W-135) diphtheria toxoid conjugate vaccine (MCV4P) Kimani Núñez MD Work Phone: [facility] 04-13-2013 hepatitis A vaccine, pediatric/adolescent dosage, 2 dose schedule Kimani Núñez MD Work Phone: [facility] 04-13-2013 human papilloma viru s vaccine, quadrivalent Kimani Núñez MD Work Phone: [facility] 11-30-2012 HPV, unspecified formulation Kimani Núñez MD Work Phone: [facility] 11-30-2012 influenza, injectabl e, quadrivalent, preservative free Kimani Núñez MD Work Phone: [facility] 09-27-2012 hepatitis A vaccine, pediatric/adolescent dosage, 2 dose schedule Kimani Núñez MD Work Phone: [facility] 09-27-2012 HPV, unspecified formulation Kimani Núñez MD Work Phone: [facility] 09-27-2012 measles, mumps and rubella virus vaccine Kimani Núñez MD Work Phone: [facility] 09-27-2012 meningococcal polysaccharide (groups A, C, Y and W-135) diphtheria toxoid conjugate vaccine (MCV4P) Kimani Núñez MD Work Phone: [facility] 09-27-2012 poliovirus vaccine, inactivated Kimani Núñez MD Work Phone: [facility] 09-27-2012 tetanus toxoid, redu esequiel diphtheria toxoid, and acellular pertussis vaccine, adsorbed Kimani Núñez MD Work Phone: [facility] 09-27-2012 varicella virus vaccine Laurel Núñez MD Work Phone: [facility] 10-16-2004 diphtheria, tetanus toxoids and acellular pertussis vaccine Kimani Núñez MD Work Phone: [facility] 10-16-2004 measles, mumps and rubella virus vaccine Kimani Núñez MD Work Phone: [facility] 10-16-2004 poliovirus vaccine, inactivated Kimani Núñez MD Work Phone: [facility] 03-21-2003 diphtheria, tetanus toxoids and acellular pertussis vaccine, unspecified formulation Kimani Núñez MD Work Phone: [facility] 03-21-2003 poliovirus vaccine, unspecified formulation Kimani Núñez MD Work Phone: [facility] 08-24-2000 haemophilus influenz ae type b vaccine, conjugate unspecified formulation Kimani Núñez MD Work Phone: [facility] 08-24-2000 measles, mumps and rubella virus vaccine Kimani Núñez MD Work Phone: [facility] 08-24-2000 poliovirus vaccine, inactivated Kimani Núñez MD Work Phone: [facility] 05-24-2000 pneumococcal conjuga te vaccine, 7 valent Kimani Núñez MD Work Phone: [facility] 05-24-2000 varicella virus vaccine Laurel Núñez MD Work Phone: [facility] 02-26-2000 pneumococcal conjuga te vaccine, 7 valent Kimani Núñez MD Work Phone: [facility] 1999 diphtheria, tetanus toxoids and acellular pertussis vaccine, unspecified formulation Kimani Núñez MD Work Phone: [facility] 1999 haemophilus influenz ae type b vaccine, conjugate unspecified formulation Kimani Núñez MD Work Phone: [facility] 1999 hepatitis B vaccine, pediatric or pediatric/adolescent dosage Kimani Núñez MD Work Phone: [facility] 1999 poliovirus vaccine, inactivated Kimani Núñez MD Work Phone: [facility] 1999 diphtheria, tetanus toxoids and acellular pertussis vaccine, unspecified formulation Kimani Núñez MD Work Phone: [facility] 1999 haemophilus influenz ae type b vaccine, conjugate unspecified formulation Kimani Núñez MD Work Phone: [facility] 1999 poliovirus vaccine, unspecified formulation Kimani Núñez MD Work Phone: [facility] 1999 diphtheria, tetanus toxoids and acellular pertussis vaccine, unspecified formulation Kimani Núñez MD Work Phone: [facility] 1999 haemophilus influenz ae type b vaccine, conjugate unspecified formulation Kimani Núñez MD Work Phone: [facility] 1999 poliovirus vaccine, unspecified formulation Kimani Núñez MD Work Phone: [facility] 1999 hepatitis B vaccine, pediatric or pediatric/adolescent dosage Kimani Núñez MD Work Phone: [facility] 1999 hepatitis B vaccine, pediatric or pediatric/adolescent dosage Kimani Núñez MD Work Phone: [facility] Payers Date Payer Category Payer Medicaid [place] [employer] [facility] MEDICAID [id number] 2018-Present [phone] [address] [place] [address] Medicaid [id number] 2018 Medicaid [id number] 2017 Unknown [id number] 2008 Unknown 1999 Unknown [id number] 1999 Unknown [id number] 1999 Unknown [id number] 1999 Unknown [id number] Social History Date Type Detail Facility Start: 04-29-2017 End: 10-16-2021 Tobacco smoking status NHIS Never smoked tobacco [facility] Start: 04-29-2017 End: 10-16-2021 Tobacco use and exposure Smokeless tobacco non-user [facility] Start: 06-05-2021 End: 12-10-2022 Alcohol intake Current non-drinker of alcohol (finding) [facility] Start: 02-12-2021 History SDOH Alcohol Frequency 2 [facility] Start: 02-12-2021 History SDOH Alcohol Std Drinks 1 [facility] Start: 02-12-2021 History SDOH Social Connections Phone 3 [facility] Start: 02-12-2021 History SDOH Social Connections Living 8 [facility] Start: 02-12-2021 History SDOH Physica l Activity DPW 4 [facility] Start: 02-12-2021 History SDOH Stress 5 [facility] Start: 01-25-2020 Education 15 [facility] Start: 03-21-2021 [facility] Start: 1999 Sex Assigned At Female C [facility] Start: 05-26-2021 End: 11-12-2021 Exposure to SARS-CoV-2 (event) Not sure [facility] Start: 1999 Sex Assigned At Not on file [facility] Start: 10-06-2021 End: 10-16-2021 Exposure to SARS-CoV-2 (event) Yes [facility] Start: 02-12-2021 End: 07-09-2022 History of Social function [facility] Start: 02-12-2021 End: 07-09-2022 Social connection and isolation panel [facility] Do you belong to any clubs or organizations such as jewish groups, unions, fraternal or athletic groups, or school groups? No [facility] Are you now , , , , never or living with a partner? Living with partner [facility] How often to you hav e a drink containing alcohol? Monthly or less [facility] How many standard dr inks containing alcohol do you have on a typical day? 1 or 2 [facility] How often do you hav e 6 or more drinks on 1 occasion? Never [facility] How hard is it for y ou to pay for the very basics like food, housing, medical care, and heating Somewhat hard [facility] Adult Depression Scr eening Assessment 4 [facility] Do you feel stress - tense, restless, nervous, or anxious, or unable to sleep at night because your mind is troubled all the time - these days [OSQ] Very much [facility] (I/We) worried wheth er (my/our) food would run out before (I/we) got money to buy more. Never true [facility] Start: 05-02-2018 Gender identity Identifies as female gender (finding) [facility] Start: 02-12-2021 Sexual orientation Heterosexual (halle yan) [facility] Goals Date Patient Goal Desired Activity /State Personal health goal Clinical Notes 06-21-2020 to 12-27-2022 Ana Maria Thompson MD - 12/23/2022 1:02 PM EDTPrenatal Quick Notes - Ana Maria Thompson MD - 12/23/2022 12:58 PM EDTPatient InstructionsKalan, Ev M, MD - 12/20/2022 5:54 PM EDT Note Date & Type Note Facility 12-27-2022 Note HNO ID: [id number] Author: Lyly Richter MD Service: Obstetrics Author Type: Resident Type: Progress Notes Filed: 12/27/2022 5:30 AM Note Text: Attestation signed by Ewelina Munoz DO at 12/27/2022 9:38 AM I saw and evaluated the patient. Discussed with the resident and agree with resident's findings and plan as documented in the resident's note. POD#3 from a 1LTCS bilateral salpingectomy for Mo-Di twins with early concerns for TTTS Gender: Girl/Girl Complications: none Problems: anemia, hgb 11.4 --> 10.5 Feeding: breast Contraception: bilateral salpingectomy Vitals: 12/26/22 0740 12/26/22 1500 12/26/22 2212 12/27/22 0810 BP: 96/60 121/65 114/52 (!) 103/45 Pulse: 59 56 63 53 Resp: 16 18 18 16 Temp: 36.6 ?C (97.9 ?F) 36.5 ?C (97.7 ?F) 36.8 ?C (98.2 ?F) 36.8 ?C (98.2 ?F) TempSrc: Oral Oral Oral Oral SpO2: 100% 99% 97% 97% Weight: Height: Incision: CDI with steristrips Discharge home today to [facility] Meds: tylenol, motrin, oxy Started taking ox last night and is ambulating better now, using IS - is feeling better now Follow up: 7 -10 days for an incision check and 6 weeks for a full PP check Ewelina Munoz OBSTETRICS PROGRESS NOTE SERVICE DATE: December 27, 2022 SERVICE TIME: 0500 ASSESSMENT: 22 year old female who is Postoperative Day #3 status post [place], Girl A Keshia Trammell [[id number]] , Low Transverse delivery with female . [place], Girl B Keshia Trammell [[id number]] , Low Transverse delivery with female . PLAN: Active Hospital Problems Diagnosis Date Noted state 12/25/2022 Overview Note: - Routine care s/p LTCS, meeting milestones - Pain is well controlled with current regimen - Lochia appropriate - Incision clean/dry/intact - Hgb: 11.4 -> 10.5 - Rh positive - Rubella immune - Pumping breastmilk - PPBC: bilateral salpingectomy - Female infants x2 in SCN doing well - Disposition per attending physician - Anticipate discharge to home on PPD#3-4 Anemia affecting 11/07/2022 Overview Note: - Iron studies, Ferritin and B12 with evidence of iron and B12 deficiency - Has been getting venofer this - Hgb on admission: 11.4 - 11/3 CBC 10.5 History of seizures Overview Note: -Saw cardio and neuro in 2017. See workup in care everywhere. Negative EEG and CT head. Likely related to vasovagal syncope. Not placed on any seizure medications and does not follow with neuro. Last seizure in 2017. Plan of care discussed with: Provider, RN, Patient. Anticipate discharge day: POD #3-4 SUBJECTIVE: Patient resting in bed with partners. States that daughters are doing well in the NICU, no concerns or questions at this time. Has not required any additional pain medications and states that her pain continues to improve. Tolerating PO intake. Urinating without difficulty. Passing flatus. Pain well controlled with current regimen. Lochia decreasing. Ambulating without difficulty. OBJECTIVE: PHYSICAL EXAM: Heart: RR Lungs: Comfortable on room air Abdomen: Soft Fundus firm below umbilicus Non-distended Incision: Transverse incision C/D/I with steri-strips. Extremities: No calf tenderness and No edema LAST VITALS: Pulse BP Resp O2 Sat Temp Pain 63 114/52 18 97 % 36.8 ?C (98.2 ?F) 1 Avg Min Max Vitals (last 12 hours) Flowsheet Row Name Average Min Max BP: Systolic 117.50 114 121 BP: Diastolic 58.50 52 65 Temp 36.6 ?C (97.95 ?F) 36.5 ?C (97.7 ?F) 36.8 ?C (98.2 ?F) Pulse 59.5 56 63 Resp 18 18 18 SpO2 98 % 97 % 99 % HT/WT/BMI: Height Weight BMI 160 cm (5' 3 ) 59.4 kg (131 lb) 23.21 LABS ABO/RH: 12/24/2022: O; Positive RUBELLA: 08/04/2022: Positive HANDH: Hematocrit (%) Date Value 12/25/2022 34.2 12/24/2022 36.9 Hemoglobin (g/dL) Date Value 12/25/2022 10.5 12/24/2022 11.4 Diagnostic tests reviewed for today's visit: Most recent labs and imaging results. SIGNATURE: Lyly Richter MD PATIENT NAME: Keshia Silverman DATE: December 27, 2022 TIME: 1:[address] [facility] 12-26-2022 Note HNO ID: [id number] Author: Mariajose Bruno DO Service: Obstetrics Author Type: Resident Type: Progress Notes Filed: 12/26/2022 4:55 AM Note Text: Attestation signed by Rona Neely MD at 12/26/2022 8:25 AM I saw and evaluated the patient. Discussed with the resident and agree with resident's findings and plan as documented in the resident's note. Rona Neely MD OBSTETRICS PROGRESS NOTE SERVICE DATE: December 26, 2022 SERVICE TIME: 4:54 AM ASSESSMENT: 22 year old female who is Postoperative Day #2 status post [place], Girl A Keshia Trammell [[id number]] , Low Transverse delivery with female . [place], Girl B Keshia Trammell [[id number]] , Low Transverse delivery with female . PLAN: Active Hospital Problems Diagnosis Date Noted state 12/25/2022 Overview Note: - Routine care s/p LTCS, meeting milestones - Pain is well controlled with current regimen - Lochia appropriate - Incision clean/dry/intact - Hgb: 11.4 -> 10.5 - Rh positive - Rubella immune - Pumping breastmilk - PPBC: bilateral salpingectomy - Female infants x2 in SCN doing well - Disposition per attending physician - Anticipate discharge to home on PPD#3-4 Anemia affecting 11/07/2022 Overview Note: - Iron studies, Ferritin and B12 with evidence of iron and B12 deficiency - Has been getting venofer this - Hgb on admission: 11.4 - am CBC 10.5 History of depression and anxiety 01/25/2020 Overview Note: -Pt has a history of depression for which she received counseling -Mood stable at this time Family history of congenital heart defect 01/25/2020 Overview Note: -FOB's grandmother with history of VSD that was repaired - Normal echo History of seizures Overview Note: -Saw cardio and neuro in 2017. See workup in care everywhere. Negative EEG and CT head. Likely related to vasovagal syncope. Not placed on any seizure medications and does not follow with neuro. Last seizure in 2017. Plan of care discussed with: Provider, RN, Patient. Anticipate discharge day: PPD #2-3 SUBJECTIVE: Patient has no current complaints. Tolerating PO intake. Urinating without difficulty. Passing flatus. Pain well controlled with current regimen. Lochia decreasing. Ambulating without difficulty. Patient reports increased soreness, denies oxycodone at this time but knows it is an option. OBJECTIVE: PHYSICAL EXAM: Heart: RR Lungs: Comfortable on room air Abdomen: Soft Fundus firm below umbilicus Non-distended Incision: Transverse incision C/D/I with steri-strips. Extremities: No calf tenderness and No edema LAST VITALS: Pulse BP Resp O2 Sat Temp Pain 72 90/50 16 96 % 36.4 ?C (97.5 ?F) 2 Avg Min Max Vitals (last 12 hours) Flowsheet Row Name Average Min Max BP: Systolic 94 90 98 BP: Diastolic 53.50 50 57 Temp 36.7 ?C (98.05 ?F) 36.4 ?C (97.5 ?F) 37 ?C (98.6 ?F) Pulse 66.5 61 72 Resp 16 16 16 SpO2 98 % 96 % 100 % HT/WT/BMI: Height Weight BMI 160 cm (5' 3 ) 59.4 kg (131 lb) 23.21 LABS ABO/RH: 12/24/2022: O; Positive RUBELLA: 08/04/2022: Positive HANDH: Hematocrit (%) Date Value 12/25/2022 34.2 12/24/2022 36.9 Hemoglobin (g/dL) Date Value 12/25/2022 10.5 12/24/2022 11.4 Diagnostic tests reviewed for today's visit: Most recent labs and imaging results. SIGNATURE: Mariajose Bruno DO PATIENT NAME: Keshia Silverman DATE: December 26, 2022 TIME: 4:[address] [facility] 12-25-2022 Note HNO ID: [id number] Author: Milagros Day RN Service: Nursing Author Type: Registered Nurse Type: Nursing Progress Note Filed: 12/25/2022 5:53 PM Note Text: Patient feeling bladder pressure. Up to bathroom per self. Voided 500cc. [facility] 12-25-2022 Note HNO ID: [id number] Author: Milagros Day RN Service: Nursing Author Type: Registered Nurse Type: Nursing Progress Note Filed: 12/25/2022 5:58 PM Note Text: Patient up to bathroom again to try to void but was unable to. [facility] 12-25-2022 Note HNO ID: [id number] Author: Isabelle Geronimo APRN.GEOSPATIAL EXTRACTOR ANALYSIS Service: Obstetrics Author Type: Nurse Practitioner Type: Progress Notes Filed: 12/25/2022 10:31 AM Note Text: OBSTETRICS PROGRESS NOTE SERVICE DATE: December 25, 2022 SERVICE TIME: 1030 ASSESSMENT: 22 year old female who is Postoperative Day #1 status post Charan, Girl A Keshia Trammell [[id number]] , Low Transverse delivery with female . Charan, Girl B Keshia A [[id number]] , Low Transverse delivery with female . LTCS 12/24 BTL [place]/di girls in SCN Samaniego removed Ambulated to bathroom x 1 Meeting pp milestones Lochia appropriate Pain controlled with current regimen Incision with dressing D/I Good bowel sounds Pumping breastmilk Anemia affecting 11/07/2022 Overview Note: - Iron studies, Ferritin and B12 with evidence of iron and B12 deficiency - Has been getting venofer this - Hgb on admission: 11.4 - am CBC 10.5 History of depression and anxiety 01/25/2020 Overview Note: -Pt has a history of depression for which she received counseling -Mood stable at this time Family history of congenital heart defect 01/25/2020 Overview Note: -FOB's grandmother with history of VSD that was repaired - Normal echo History of seizures Overview Note: -Saw cardio and neuro in 2017. See workup in care everywhere. Negative EEG and CT head. Likely related to vasovagal syncope. Not placed on any seizure medications and does not follow with neuro. Last seizure in 2017. PLAN: Routine postop care. Encourage ambulation and IS usage. Encourage patient to use pain meds. . Control: Tubal Ligation Plan of care discussed with: Provider, RN, Patient. Anticipate discharge day: POD #3-4 SUBJECTIVE: Patient has no current complaints. Tolerating PO intake. Urinating without difficulty. Passing flatus. Pain well controlled with current regimen. Lochia decreasing. Ambulating without difficulty. OBJECTIVE: PHYSICAL EXAM: Heart: RR, S1, S2 Lungs: normal pulmonary exam and clear to auscultation Breasts: Nipples intact and Colostrom expressed Abdomen: Soft Appropriately tender to palpation Bowel sounds present Fundus firm below umbilicus Non-distended Incision: Bandage C/D/I. Perineum: Perineum intact Extremities: No calf tenderness and No edema LAST VITALS: Pulse BP Resp O2 Sat Temp Pain 60 104/59 16 97 % 36.4 ?C (97.6 ?F) 2 Avg Min Max Vitals (last 12 hours) Flowsheet Row Name Average Min Max BP: Systolic 114.62 103 130 BP: Diastolic 67.23 59 78 Temp 36.4 ?C (97.6 ?F) 36.4 ?C (97.5 ?F) 36.6 ?C (97.8 ?F) Pulse 52.08 45 61 Resp 15.46 10 18 SpO2 99.15 % 97 % 100 % HT/WT/BMI: Height Weight BMI 160 cm (5' 3 ) 59.4 kg (131 lb) 23.21 LABS ABO/RH: 12/24/2022: O; Positive RUBELLA: 08/04/2022: Positive HANDH: Hematocrit (%) Date Value 12/25/2022 34.2 12/24/2022 36.9 Hemoglobin (g/dL) Date Value 12/25/2022 10.5 12/24/2022 11.4 Diagnostic tests reviewed for today's visit: Most recent labs and imaging results. SIGNATURE: Isabelle Geronimo APRN.CNP PATIENT NAME: Keshia Silverman DATE: December 25, 2022 TIME: 10:[address] [facility] 12-25-2022 Note HNO ID: [id number] Author: Liat Waller MD Service: Obstetrics Author Type: Resident Type: Progress Notes Filed: 12/25/2022 6:29 AM Note Text: OBSTETRICS PROGRESS NOTE SERVICE DATE: December 25, 2022 SERVICE TIME: 5:14 AM ASSESSMENT: 22 year old female who is Postoperative Day #1 status post Charan, Girl A Keshia Trammell [[id number]] , Low Transverse delivery with female . Charan, Girl B Keshia Trammell [[id number]] , Low Transverse delivery with female . PLAN: Active Hospital Problems Diagnosis Date Noted state 12/25/2022 Overview Note: - Routine care s/p LTCS, meeting milestones - Pain is well controlled with current regimen - Lochia appropriate - Incision is covered with bandage, no signs of leakage or drainage of fluid/blood, will remove in shower today - Hgb: 11.4 -> 10.5 - Rh positive - Rubella immune - Pumping breastmilk - PPBC: bilateral salpingectomy - Female infants x2 in SCN doing well - Disposition per attending physician - Anticipate discharge to home on PPD#3-4 Anemia affecting 11/07/2022 Overview Note: - Iron studies, Ferritin and B12 with evidence of iron and B12 deficiency - Has been getting venofer this - Hgb on admission: 11.4 - am CBC 10.5 History of depression and anxiety 01/25/2020 Overview Note: -Pt has a history of depression for which she received counseling -Mood stable at this time Family history of congenital heart defect 01/25/2020 Overview Note: -FOB's grandmother with history of VSD that was repaired - Normal echo History of seizures Overview Note: -Saw cardio and neuro in 2017. See workup in care everywhere. Negative EEG and CT head. Likely related to vasovagal syncope. Not placed on any seizure medications and does not follow with neuro. Last seizure in 2017. Anticipate discharge day: POD #2-3 SUBJECTIVE: Patient has no current complaints. Passing flatus. Pain well controlled with current regimen. Lochia decreasing. Due to late evening c/section, patient has not been up out of bed and Samaniego catheter remains in place. She noted an episode of emesis after eating some crackers and big gulps of water . No nausea/vomiting since. Encouraged PO hydration when tolerating and advancing diet at breakfast. Patient evaluated for bradycardia with ECG showing sinus bradycardia. Patient notes this is normal for her outside of and denies any symptoms of dizziness/light-headedness or shortness of breath. OBJECTIVE: PHYSICAL EXAM: Heart: RR, warm and well perfused Lungs: normal respiratory effort Abdomen: Soft, Fundus firm below umbilicus, non-distended Incision: Transverse incision with bandage in place, no areas of leakage or drainage noted, to be removed today Extremities: No calf tenderness and trace edema LAST VITALS: Pulse BP Resp O2 Sat Temp Pain 51 123/73 16 100 % 36.6 ?C (97.8 ?F) 2 Avg Min Max Vitals (last 12 hours) Flowsheet Row Name Average Min Max BP: Systolic 114.15 98 130 BP: Diastolic 67.23 59 78 Temp 36.5 ?C (97.75 ?F) 36.4 ?C (97.5 ?F) 36.8 ?C (98.2 ?F) Pulse 53.77 45 82 Resp 15.38 10 18 SpO2 99.31 % 98 % 100 % HT/WT/BMI: Height Weight BMI 160 cm (5' 3 ) 59.4 kg (131 lb) 23.21 LABS ABO/RH: 12/24/2022: O; Positive RUBELLA: 08/04/2022: Positive HANDH: Hematocrit (%) Date Value 12/24/2022 36.9 Hemoglobin (g/dL) Date Value 12/24/2022 11.4 Diagnostic tests reviewed for today's visit: Most recent labs and imaging results. SIGNATURE: Liat Waller MD PATIENT NAME: Keshia Silverman DATE: December 25, 2022 TIME: 5:[address] [facility] 12-25-2022 Note HNO ID: [id number] Author: Debora Alonso DO Service: Obstetrics Author Type: Resident Type: Progress Notes Filed: 12/25/2022 1:09 AM Note Text: Resident notified of patient HR in the 40s-50s. On evaluation, patient reports feeling well other than being sore . She denies CP, SOB, and palpitations. She also states that prior to her , her baseline HR is always low like this . She endorses being told in the past that her HR is in the 40s-50s prior to this incidence today. STAT EKG was obtained and was remarkable only for sinus bradycardia (43 bpm). There is no evidence of heart block. Her BP and O2 saturation are normal. Debora Alonso DO Obstetrics and Gynecology PGY-3 [facility] 12-24-2022 Note HNO ID: [id number] Author: Allan Oconnor APRN.CRNA Service: Anesthesiology Author Type: Nurse Special Agent Type: Anesthesia Procedure Notes Filed: 12/24/2022 9:30 PM Note Text: ANESTHESIOLOGY PROCEDURE NOTE Spinal Block General Information Procedure Start Time/Medication Administration: 12/24/2022 9:20 PM Patient location during procedure: OR Timeout Performed Pre-procedure: timeout performed Consent Obtained: Yes Patient identity confirmed: arm band and patient Reason for Block: labor epidural Staffing [employer] OFFICER: Allan Oconnor APRN.[employer] POLICE OFFICER Performed by: [employer] OFFICER Preparation Sterility Preparation: hand hygiene performed prior to procedure, sterile gloves, drapes, and procedure tray, gown used during line insertion, surgical cap used, mask used, sterile drape used during line insertion, skin prep agent completely dried prior to procedure Site Prep: Betadine Procedure Details Patient Position: sitting Ultrasound Guided: No Monitoring: Pulse Ox and NIBP Approach: Midline Location: L4-5 Injection Technique: single-shot Needle Needle Type: pencil-tip Needle Gauge: 24 G Needle Length: 3.5 in Assessment Sensory Level: T4 Events: tolerated well Medications Administered fentaNYL 50 mcg/mL injection (SUBLIMAZE) [Spinal] - INTRASPINAL 10 mcg - 12/24/2022 9:20:00 PM bupivacaine-dextrose 0.75 % (7.5 mg/mL) injection (SENSORCAINE MPF SPINAL) - INTRASPINAL 2 mL - 12/24/2022 9:20:00 PM morphine (PF) injection (ASTRAMORPH) - INTRATHECAL 0.15 mg - 12/24/2022 9:20:00 PM Comments UNIVERSAL PROTOCOL / SAFETY CHECKLIST Procedure to be Performed: Sign In: A Moment of CARE was completed. Personnel directly involved with the procedure wore the appropriate PPE (Personal Protective Equipment). Patient/Surrogate Stated/Verified: PATIENT VERIFIED(optional for EMERGENT procedures): Patient name, Date of , Relevant allergies and The intended procedure Time Out Communication: Intended patient and procedure match the source documents. Consent documented and matches the intended procedure. Sign Out: SIGN OUT (optional for EMERGENT procedures): Post-procedure follow-up management communicated and Plan of Care Visit completed when applicable. Allan Oconnor APRN.[employer] POLICE OFFICER SIGNATURE: Allan Oconnor APRN.[employer] POLICE OFFICER PATIENT NAME: Keshia Silverman DATE: December 24, 2022 TIME: 9:29 PM CSN: [id number] [facility] 12-23-2022 Note HNO ID: [id number] Author: Ana Maria Thompson MD Service: ? Author Type: Physician Type: Progress Notes Filed: 12/23/2022 1:04 PM Note Text: NST SUMMARY PROVIDER ASSESSMENT AND INTERPRETATION Keshia Silverman is a 22 year old female, , who is at 33w4d with an CHRIS of 02/06/2023, by Last Menstrual Period dating method. Indications for NST: Polyhydramnios and Other: MONO/DI twins Baseline: 140 Variability: Moderate Accelerations: Present 15 X 15 Decelerations: None Contractions: TOCO: irritability Interpretation: Category I and Reactive TWIN B Baseline: 135 Variability: Moderate Accelerations: Present 15 X 15 Decelerations: None Interpretation: Category I reactive SIGNATURE: Ana Maria Mayberry MD [facility] 12-23-2022 History of Presen t illness Narrative NST SUMMARY PROVIDER ASSESSMENT AND INTERPRETATION Keshia Silverman is a 22 year old female, , who is at 33w4d with an CHRIS of 02/06/2023, by Last Menstrual Period dating method. Indications for NST: Polyhydramnios and Other: MONO/DI twins Baseline: 140 Variability: Moderate Accelerations: Present 15 X 15 Decelerations: None Contractions: TOCO: irritability Interpretation: Category I and Reactive TWIN B Baseline: 135 Variability: Moderate Accelerations: Present 15 X 15 Decelerations: None Interpretation: Category I reactive SIGNATURE: Ana Maria Mayberry MD documented in this encounter [facility] 12-23-2022 Miscellaneous Notes DM-Pt doing well. Denies vaginal Bleeding, Leaking fluid, or regular Contractions. Pt reports good movement Physical Exam: Gen: female in no apparent distress Abd: soft, Gravid. Non tender to palpation. See flow sheet A/P: @ 33.4 weeks- MONO/DI twins Previous BMZ given NST today. Growth us pending. MONO DI- Delivery btwn 34-37 weeks was previous MFM plan Vaginal delivery- Vertex Twin A, Twin B Breech POLY. Risk of breech extraction reviewed. Pt planning Tubal. Plan for delivery next visit after ultrasound results. documented in this encounter [facility] 12-23-2022 Instructions Deanne Vo Ma - 12/23/2022 11:22 AM EDT SEQUENTIAL SCREENINGS The [facility] offers sequential screenings for women who are interested in screenings for chromosomal abnormalities and certain defects during a . The sequential screen combines ultrasound and blood tests to determine the risk of chromosomal abnormalities, including Down's Syndrome (Trisomy 21) and Trisomy 18, as well as open neural tube defects including spina bifida. Ultrasound examination is performed between 11 weeks and 13 weeks gestational age. Blood tests are drawn after the ultrasound and again later in the between 15 and 21 weeks gestational age. Please let your physician know if you are interested in this testing. It will require an appointment with our vacuum technician. This is not an ultrasound performed by a physician in our office during a routine visit. SIGNS AND SYMPTOMS OF LABOR 1. Contractions every 10 minutes or more often 2. Clear, pink, or brownish fluid (water) leaking from vagina 3. Feeling that baby is pushing down, pressure 4. Low, dull backache 5. Cramps that feel like a period 6. Cramps with or without diarrhea If you notice any of the above symptoms, contact our office at [phone] and ask to speak with a nurse. After hours, you can call doctors registry at [phone] OR call [facility] at [phone] and ask to have the doctor manager retention paged. If you consider this an emergency, dial 9-1- or go to your nearest emergency department. NEED HELP? Are you dealing with a violent or abusive relationship? Are you a victim of rape or sexual assult? Call [facility] ([place]) 24 hour Crisis Hotline: 397.542.8381 or 724-399-8957. MANUAL Your Guide to a Healthy manual is now on-line. Visit [email or web address] to download your free copy documented in this encounter [facility] 12-20-2022 Note HNO ID: [id number] Author: Ev Chang MD Service: ? Author Type: Physician Type: Progress Notes Filed: 12/20/2022 6:04 PM Note Text: MFM: 32w5d [place]/di twins with h/o labor s/p BMZ course x 2. Today there is a new finding of polyhydramnios for twin B. Twin B with MCA doppler 1.24 MoM. Unable to obtain MCA dopplers for twin A. Reassuring MCA doppler for twin B but reviewed that this could be an early TAPS if the MCA doppler for twin A is elevated. The polyhydramnios could be secondary to GDM as well. Follow up tomorrow for MCA dopplers of twin A given the discordant fluids. Recommend 3 h GTT. Ev Chang MD [facility] 12-20-2022 History of Presen t illness Narrative MFM: 32w5d [place]/di twins with h/o labor s/p BMZ course x 2. Today there is a new finding of polyhydramnios for twin B. Twin B with MCA doppler 1.24 MoM. Unable to obtain MCA dopplers for twin A. Reassuring MCA doppler for twin B but reviewed that this could be an early TAPS if the MCA doppler for twin A is elevated. The polyhydramnios could be secondary to GDM as well. Follow up tomorrow for MCA dopplers of twin A given the discordant fluids. Recommend 3 h GTT. Ev Chang MD BP 104/72 Pulse 88 Wt 126 lb (57.2 kg) LMP 05/02/2022 (Exact Date) BMI 22.32 kg/m Estimated Date of Delivery: 02/06/23 NST Intervention: oral fluids Monitor: Twin A-light tracing. ML LQ Twin B- dark tracing RUQ GA: 32.5 Indication:Twins A&B failed BPP-breathing x2 Time On: 1151 Time Off: 1220 NST read and reviewed by Dr. Chang. Pt. Discharged home. Rosie Yin RN NST (TWINS) SUMMARY PROVIDER ASSESSMENT AND INTERPRETATION Keshia Silverman is a 22 year old female, , who is at 32w5d with an CHRIS of 02/06/2023, by Last Menstrual Period dating method. Indications for NST: Other: mono/di twins, BPP 6/8 x 2 BABY A: Baseline: 150 Variability: Moderate Accelerations: Present 15 X 15 Decelerations: None BABY B: Baseline: 130 Variability: Moderate Accelerations: Present 15 X 15 Decelerations: None Contractions: TOCO: Irregular Interpretation: Baby A: Reactive Baby B: Reactive SIGNATURE: Ev Chang MD documented in this encounter [facility] 12-18-2022 Note HNO ID: [id number] Author: Rosie Barnes RN Service: ? Author Type: Registered Nurse Type: Progress Notes Filed: 12/18/2022 10:48 AM Note Text: BP 95/61 Pulse 76 LMP 05/02/2022 (Exact Date) Estimated Date of Delivery: 02/06/23 NST Intervention: n/a Monitor: Twin A. Light tracing mid to lower right quadrant. Twin B. Dark tracing. Mid to upper right quadrant. GA: 32.6 Indication: Twin AANDB failed BPP-breathing x2 Time On: 0956 Time Off: 1024 NST read and reviewed by Dr. Seo. Pt. Discharged home. Rosie Yin RN [facility] 12-18-2022 History of Presen t illness Narrative BP 95/61 Pulse 76 LMP 05/02/2022 (Exact Date) Estimated Date of Delivery: 02/06/23 NST Intervention: n/a Monitor: Twin A. Light tracing mid to lower right quadrant. Twin B. Dark tracing. Mid to upper right quadrant. GA: 32.6 Indication: Twin A&B failed BPP-breathing x2 Time On: 0956 Time Off: 1024 NST read and reviewed by Dr. Seo. Pt. Discharged home. Rosie Yin RN documented in this encounter [facility] 12-17-2022 Note HNO ID: [id number] Author: Rosie Barnes RN Service: ? Author Type: Registered Nurse Type: Progress Notes Filed: 12/20/2022 6:04 PM Note Text: BP 104/72 Pulse 88 Wt 126 lb (57.2 kg) LMP 05/02/2022 (Exact Date) BMI 22.32 kg/m? Estimated Date of Delivery: 02/06/23 NST Intervention: oral fluids Monitor: Twin A-light tracing. ML LQ Twin B- dark tracing RUQ GA: 32.5 Indication:Twins AANDB failed BPP-breathing x2 Time On: 1151 Time Off: 1220 NST read and reviewed by Dr. Chang. Pt. Discharged home. Rosie Yin RN [facility] 12-17-2022 Note HNO ID: [id number] Author: Ev Chang MD Service: ? Author Type: Physician Type: Progress Notes Filed: 12/20/2022 6:04 PM Note Text: NST (TWINS) SUMMARY PROVIDER ASSESSMENT AND INTERPRETATION Keshia Silverman is a 22 year old female, , who is at 32w5d with an CHRIS of 02/06/2023, by Last Menstrual Period dating method. Indications for NST: Other: mono/di twins, BPP 6/8 x 2 BABY A: Baseline: 150 Variability: Moderate Accelerations: Present 15 X 15 Decelerations: None BABY B: Baseline: 130 Variability: Moderate Accelerations: Present 15 X 15 Decelerations: None Contractions: TOCO: Irregular Interpretation: Baby A: Reactive Baby B: Reactive SIGNATURE: Ev Chang MD [facility] 12-17-2022 Miscellaneous Notes . documented in this encounter [facility] 12-10-2022 Miscellaneous Notes KJ - VB No. LOF No. CTXS No. Movement: present x2 . Other c/o: No. Medication list reviewed. Physical Exam See Flow Sheet Gen: no accute distress, well appearing A/P 31w5d Estimated Date of Delivery: 02/06/23 [place]/di twins - weekly US. S/p BMZ last week PLan for 3hr GTT next week PTL precautions reviewed, Kick counts reviewed. Kimani Núñez MD documented in this encounter [facility] 12-10-2022 Miscellaneous Notes Done Kimani Núñez MD Orders pending. BETINA BAGLEY RN If you could please put in 2 new ultrasound orders for her newly scheduled ultrasounds as the ones in her active request are closed so I can link them to her appointments. Thank you! Yuki Herrera PSS documented in this encounter [facility] 12-10-2022 Instructions Opal Hughes Ma - 12/10/2022 8:34 AM EDT SEQUENTIAL SCREENINGS The [facility] offers sequential screenings for women who are interested in screenings for chromosomal abnormalities and certain defects during a . The sequential screen combines ultrasound and blood tests to determine the risk of chromosomal abnormalities, including Down's Syndrome (Trisomy 21) and Trisomy 18, as well as open neural tube defects including spina bifida. Ultrasound examination is performed between 11 weeks and 13 weeks gestational age. Blood tests are drawn after the ultrasound and again later in the between 15 and 21 weeks gestational age. Please let your physician know if you are interested in this testing. It will require an appointment with our vacuum technician. This is not an ultrasound performed by a physician in our office during a routine visit. SIGNS AND SYMPTOMS OF LABOR 1. Contractions every 10 minutes or more often 2. Clear, pink, or brownish fluid (water) leaking from vagina 3. Feeling that baby is pushing down, pressure 4. Low, dull backache 5. Cramps that feel like a period 6. Cramps with or without diarrhea If you notice any of the above symptoms, contact our office at [phone] and ask to speak with a nurse. After hours, you can call doctors registry at [phone] OR call [facility] at [phone] and ask to have the doctor manager retention paged. If you consider this an emergency, dial 9--1 or go to your nearest emergency department. NEED HELP? Are you dealing with a violent or abusive relationship? Are you a victim of rape or sexual assult? Call [facility] ([place]) 24 hour Crisis Hotline: 503.415.3352 or 278-320-1414. MANUAL Your Guide to a Healthy manual is now on-line. Visit [email or web address] to download your free copy documented in this encounter [facility] 12-08-2022 Note HNO ID: [id number] Author: Zuri Clarke RN Service: Nursing Author Type: Registered Nurse Type: Procedures Filed: 12/08/2022 9:46 PM Note Text: Attestation signed by Abigail Parker MD at 12/09/2022 8:06 PM OBSTETRICS MONITORING ASSESSMENT On 12/08/2022, I interpreted the following NST NST Interpretation: Reactive (12/08/222044 : Abigail Parker MD) FHR Category: 1 (12/08/222114 : Zuri Clarke RN) Disposition: Continue Current Management (12/08/222044 : Abigail Parker MD) PROVIDER INTERPRETATION: Category I, Reactive, for both A AND B. SIGNATURE: Abigail Parker MD PATIENT NAME: Keshia Silverman DATE: December 09, 2022 TIME: 8:05 PM OBSTETRICS NST SUMMARY SERVICE DATE: December 08, 2022 The patient is a 22 year old female, , who is at 31w3d with an CHRIS of 02/06/2023, by Last Menstrual Period dating method. NST OBJECTIVE FINDINGS PER NURSE: Start Time: 2006 (2024 for green HR (baby B)) (12/08/222044 : Zuri Clarke RN) Complete Time: 2044 (12/08/222044 : Zuri Clarke RN) Indications: Labor (12/08/222044 : Zuri Clarke RN) Patient Reason For: monitor baby (12/08/222044 : Zuri Clarke RN) NST Explanation: Procedure Explained;Monitor Explained;Verbalizes Understanding (12/08/222044 : Zuri Clarke RN) Acoustic Stimulator: No (12/08/222044 : Zuri Clarke RN) Interventions: MONITORING/ASSESSMENT: Baseline: 145 bpm (12/08/222044 : Zuri Clarke RN) 150 bpm (12/08/222044 : Zuri Clarke RN) Variability: Moderate (6-25 bpm) (12/08/222044 : Zuri Clarke RN) Moderate (6-25 bpm) (12/08/222044 : Zuri Clarke RN) Accelerations: Present (12/08/222044 : Zuri Clarke RN) Present (12/08/222044 : Zuri Clarke RN) Decelerations: Decelerations: None (12/08/222044 : Zuri Clarke RN) Decelerations Fetus B: None (12/08/222044 : Zuri Clarke RN) Contractions: Irregular (12/08/222044 : Zuri Clarke, RN) Frequency: x3 (12/08/222044 : Zuri Clarke, RN) Above information forwarded to (12/08/222044 : Zuri Clarke, RN) for final review and interpretation. SIGNATURE: Zuri Clarke RN PATIENT NAME: Keshia Silverman DATE: December 08, 2022 TIME: 9:[address] [facility] 12-08-2022 Note HNO ID: [id number] Author: Naila Johnson MD Service: Obstetrics Author Type: Resident Type: Progress Notes Filed: 12/08/2022 9:21 PM Note Text: Attestation signed by Abigail Parker MD at 12/09/2022 8:00 PM On 12/08/22, Discussed status with resident, ok to dc home. Reassessed patient. She states that she feels her contractions have spaced out. She now only feels some intermittent cramping. Cervix unchanged at 4/70/-2. Baby A and Baby B with reassuring monitoring. No contractions seen in >1 hours on tocometer. Patient given strict return precautions. She stated her understanding. Naila Johnson MD [facility] 12-08-2022 Note HNO ID: [id number] Author: Naila Johnson MD Service: Obstetrics Author Type: Resident Type: Progress Notes Filed: 12/08/2022 7:55 PM Note Text: Attestation signed by Abigail Parker MD at 12/09/2022 7:59 PM Attending Note On 12/08/2022, I evaluated the patient and personally participated in the marcus components. I agree with the resident's findings and plan as documented and have discussed the case and management of the patient's care with the resident. Plan of care discussed with: Provider, RN, Patient. Signature: Abigail Parker MD Date: December 09, 2022 Time: 7:57 PM OBSTETRICS OB ED PROGRESS NOTE SERVICE DATE: December 08, 2022 SERVICE TIME: 7:21 PM Subjective Patient's stated reason for arrival: contractions, twin , pressure CHIEF COMPLAINT: Contractions HISTORY OF THE PRESENT ILLNESS: The patient is a 22 year old female, , who is at 31w3d with mono Di twins. Patient is here complaining of contractions. She states that she is a several contractions an hour for about the last 12 hours consistently. She states that some of them are painful and others are just present but they are overall tolerable at this time. She also feels a lot of vaginal pressure at this time. Denies leakage of fluid or vaginal bleeding. complicated by 2 admissions for rule out labor. Was mostly recently discharged on 12/06. She reports good movement. She has no other complaints at this time. PAST MEDICAL HISTORY Diagnosis Date Anemia Encounter for supervision of normal in teen primigravida, antepartum 04/05/2018 Hypotension anxiety depression 2019 difficulty gaining weight during Seizure (HCC) Had Neuro w/u. Related to Syncope. Last seizure in 2017. Syncope patient states due to hypotension PAST SURGICAL HISTORY Procedure Laterality Date NONE FAMILY HISTORY Problem Relation Age of Onset Bipolar disorder Mother no contact with her Bipolar disorder Father was in and out of assisted, of heroin overdose in 01/09 Drug abuse Father Drug abuse Sister is 16 months younger than patient other (borderline personality disorder) Sister ADD/ADHD Sister is age 11 as of 04/25/2019 Heart Attack Maternal Grandmother Thyroid Maternal Grandmother other (blood cancer) Maternal Grandmother COPD Maternal Grandfather smoker Heart Paternal Grandmother No Known Problems Son other (gastric reflux) Son No Known Problems Daughter OB History T1 L3 SAB0 IAB0 Ectopic0 Multiple0 Live Births3 REVIEW OF SYSTEMS: GENERAL: No malaise, chills, or fevers RESPIRATORY: Negative for cough, dyspnea or shortness of breath CARDIOVASCULAR: Negative for chest pain or palpitations GI: No nausea, vomiting, or diarrhea : No dysuria, frequency or incontinence GUARDIAN AD LITEM: Negative for abnormal vaginal bleeding, abnormal vaginal discharge Objective LAST VITALS: Pulse: 87 BP: 124/60 Resp: 18 Temp: (!) 35.9 ?C (96.6 ?F) SpO2: 99 % Height: 160 cm (5' 3 ) Weight: 57.2 kg (126 lb) BMI: 22.32 PHYSICAL EXAM: General appearance: Well appearing, well nourished, in no acute distress Lungs: Breathing comfortably on room air Heart: Appears well perfused Abdomen: Abdomen soft, non-tender. Gravid Uterus: soft, nontender Extremities: No edema CERVICAL EXAM: Dilation: 4 (12/08/221900 : Naila Johnson MD) Station: -2 (12/08/221900 : Naila Johnson MD) Effacement (%): 70 (12/08/221900 : Naila Johnson MD) MONITORING/ASSESSMENT: Baby A- 150, moderate variability, accelerations present, no decelerations Baby B- 145, moderate variability, accelerations present, no decelerations Reassuring monitoring for gestational age Contractions about q10-15 minutes LABS Diagnostic tests reviewed for today's visit: Most recent labs and imaging results. Assessment/Plan 22 year old EGA:31w3d with mono Di twins presenting for contractions with cervix unchanged at 4/70/-2. Active Hospital Problems Diagnosis Date Noted Monochorionic diamniotic twin gestation 07/10/2022 Overview Note: - Following with [facility] in [place] - Has been getting ultrasounds for TTTS including umbilical artery dopplers every 2 weeks starting at 16 weeks - monitoring appropriate for gestational age for fetus A and B Threatened premature labor, not delivered 11/25/2021 Overview Note: - presented with contractions for the last 12 hours - recently admitted for threatened labor and - SVE /-2 on admission (unchanged from last admission) - Declines pain medication at this time - s/p BMZ and - GBS negative on 11/26 - Will do a 2 hour cervical (more content not included)... [facility] 12-06-2022 Note HNO ID: [id number] Author: Jeet Calloway MD Service: Nursing Author Type: Physician Type: Procedures Filed: 12/06/2022 10:20 AM Note Text: OBSTETRICS NST SUMMARY SERVICE DATE: December 06, 2022 The patient is a 22 year old female, , who is at 31w1d with an CHRIS of 02/06/2023, by Last Menstrual Period dating method. NST OBJECTIVE FINDINGS PER NURSE: Start Time: 829 (12/06/22829 : Ana María Gibson RN) Complete Time: 914 (12/06/22914 : Ana María Gibson RN) Indications: Labor (12/06/22829 : Ana María Gibson RN) Patient Reason For: monitor wellbeing (12/06/22844 : Ana María Gibson, RN) NST Explanation: Procedure Explained;Monitor Explained;Verbalizes Understanding (12/06/22844 : Ana María Gibson, PAIGE) Acoustic Stimulator: Interventions: Other (See Comment) (none) (12/06/22914 : Ana María Gibson RN) MONITORING/ASSESSMENT: Baseline: 140 bpm (12/06/22914 : Ana María Gibson RN) 135 bpm (12/06/22914 : Ana María Gibson RN) Variability: Moderate (6-25 bpm) (12/06/22914 : Ana María Gibson RN) Moderate (6-25 bpm) (12/06/22914 : Ana María Gibson RN) Accelerations: Present (12/06/22914 : Ana María Gibson RN) Present (12/06/22914 : Ana María Gibson RN) Decelerations: Decelerations: None (12/06/22914 : Ana María Gibson RN) Decelerations Fetus B: None (12/06/22914 : Ana María Gibson RN) Contractions: Not present (12/06/22914 : Ana María Gibson RN) Frequency: Above information forwarded to Dr Calloway (12/06/22914 : Ana María Gibson RN) for final review and interpretation. SIGNATURE: Ana María Gibson RN PATIENT NAME: Keshia Silverman DATE: December 06, 2022 TIME: 9:27 AM I personally reviewed the heart rate tracings. The FHR baseline was in the normal range for both fetus. The NST's was reactive without evidence of decelerations. At least 2 accelerations of 15 beats lasting for 15 seconds are noted in a 30 minute period. For each fetus. Regular uterine activity was not noted. IMPRESSION: Reactive NST's x2. Jeet Calloway MD [facility] 12-06-2022 Note HNO ID: [id number] Author: Jeet Calloway MD Service: Maternal Medicine Author Type: Physician Type: Progress Notes Filed: 12/06/2022 10:18 AM Note Text: OBSTETRICS ANTEPARTUM PROGRESS NOTE SERVICE DATE: 12/06/2022 SERVICE TIME: 5:41 AM Assessment AND Plan : 22 year old EGA:31w1d admitted for Labor arrested at 4 cm dilation. Plan of care discussed with: Provider, RN, Patient. Active Hospital Problems Diagnosis Date Noted Threatened labor, third trimester 11/05/2022 Overview Note: - presented with progressive painful contractions, patient reports decreased in frequency but same in intensity overnight - recently admitted for threatened labor - swabs deferred as patient declines abnormal vaginal discharge, has had negative BV/Trich/GC/CT multiple times this and denies risk factors - Udip negative for signs of UTI - SVE /-2 on admission (changed from 2-/-2) - Declines pain medication at this time - s/p BMZ and - s/p magnesium sulfate for neuroprotection - NICU consult - GBS negative on 11/26, will defer antibiotics at this time - Regular diet - NST daily - MFM primary, PPG for delivery - Cephalic / Breech - Reviewed that given patient <32 weeks gestation and infants <2000g, some providers may not be comfortable with attempt of breech extraction should labor progress. Patient understanding 31 weeks gestation of 12/05/2022 Breech presentation, no version 12/04/2022 30 weeks gestation of 12/04/2022 History of delivery, currently in third trimester 12/04/2022 labor in third trimester without delivery 12/04/2022 Anemia affecting 11/07/2022 Overview Note: -Iron studies, Ferritin and B12 with evidence of iron and B12 deficiency -s/p Venofer daily for 5 days starting 11/07 -Active TANDS every 72 hours - Hgb 10. 8 on admission (in 7's in mid-October) Monochorionic diamniotic twin gestation 07/10/2022 Overview Note: - Following with M[facility] in [place] - Has been getting ultrasounds for TTTS including umbilical artery dopplers every 2 weeks starting at 16 weeks - Adequate and concordant growth @ 29w5d - PLAN: - Growth ultrasound every 4 weeks - MCA Dopplers every 2 weeks starting at 26 weeks - Plan for weekly BPP at 32 weeks History of prior with IUGR 07/09/2022 Overview Note: -Patient has a history of IUGR with her last -Recent growth US 29w5d Baby A 29% AC 53% 1,395 g Baby B 15% AC 33% 1,302 g Request for sterilization 09/18/2021 Overview Note: -Patient states she was planning to have a tubal ligation before she found out she was -Desires bilateral tubal sterilization -Medicaid consent form signed on admission 11/05/22 History of depression and anxiety 01/25/2020 Overview Note: -Pt has a history of depression diagnosed after the of her first child. She did have counseling with [facility]. She has a history of anxiety after the of her last child. -Mood stable at this time Family history of congenital heart defect 01/25/2020 Overview Note: -FOB's grandmother with history of VSD that was repaired - Normal echo Subjective : No current vaginal bleeding, No current leaking of fluid, states contractions have spaced and are less painful, approximately 2-3 contractions/hour, Good movement, No shortness of breath or chest pain, and No calf tenderness Slept overnight No other concerns Objective : LAST VITALS: Pulse BP Resp O2 Sat Temp Pain 67 104/54 16 96 % 36.2 ?C (97.2 ?F) 6 PHYSICAL EXAM: General: WD, WN, NAD, comfortable Heart: RR Lungs: unlabored breathing on room air Abdomen: soft, nontender, gravid Extremities: tr edema MONITORING/ASSESSMENT: NST today LABS Diagnostic tests reviewed for today's visit: Most recent labs and imaging results. SIGNATURE: Joseline Ward DO PATIENT NAME: Keshia Silverman DATE: December 06, 2022 TIME: 5:41 AM I personally saw and examined the patient on 12/06/2022. I reviewed the resident's note. I agree with the resident's assessment and plan unless otherwise noted. Patient has been clinically stable. No cervical change. Contractions are now irregular. Patient lives 30 min from hospital and has a ride 14/09. Patient interested in staying at home. Given some cervical thickness and no cervical change will discharge to home. well being has been reassuring. Jeet Calloway MD [facility] documented as of this encounter (statuses as of 12/10/2022) [facility]10-[facility]-20[facility] History of Past illness Narrative* Problem Noted Date Diagnosed Date Resolved Date 31 weeks gestation of 12/05/2022 12/08/2022 Prematurity 12/04/2022 12/08/2022 Breech presentation, no version 12/04/2022 12/08/2022 30 weeks gestation of 12/04/2022 12/06/2022 History of delivery, currently in third trimester 12/04/2022 12/08/2022 labor in third trime ster without delivery 12/04/2022 12/08/2022 threatened labor 11/27/2022 Overview: -started yesterday evening, not improved with tylenol, irregular, feel like labor pains -cervix 2/60/-3 -no concerns for STDs, no abnormal discharge -udip ordered -plan to recheck cervix in 2 hours labor without delive ry, second trimester 11/05/2022 11/30/2022 Overview: -Patient with painful uterine contractions and had cervical dilation/made change while being evaluated in the OB ED -s/p epidural for pain control Short cervix during pregnanc y in second trimester 11/05/2022 11/30/2022 History of delivery, currently in second trimester 11/05/2022 11/08/2022 Abdominal pain affecting 11/04/2022 11/05/2022 Overview: - reporting contractions overnight, resolved in VIKASH - good movement, no vaginal bleeding or leakage of fluid - taking flagyl for bacterial vaginosis - urine dip negative for UTI - monitored x2 hours, no contractions during that time - patient comfortable with discharge at this time - given strict return precautions for labor, decreased movement, leakage of fluid, or vaginal bleeding - follow up for routine care in one week as scheduled Short interval between pregn ancies affecting in third trimester, antepartum 11/04/2022 11/30/2022 Overview: -Last delivery 11/14/21 27 weeks gestation of 11/04/2022 11/30/2022 Overview: - consult placed -Betamethasone given 11/05-11/06 -s/p Magnesium for neuroprotection -GBS negative -Daily NST's Poor growth affecting management of mother in third trimester 08/21/2021 07/10/2022 Overview: EFW 6% at 34 weeks. Weekly BPP's. Delivery 38-39 weeks. SW 08/21/21- 23.6 weeks gestation. Measuring 3 weeks behind- will continue to monitor. Pam Yarbrough APRN.CNM Subchorionic hematoma in first trimester 05/09/2021 07/10/2022 Overview: 05/09/21- visualized on TAUS. Pam Yarbrough APRN.CNM Supervision of other high ri sk pregnancies, second trimester 04/29/2021 11/05/2022 Overview: 3Patient delivered her previous child on November 14, 2021. TKRN on oral contraceptive 04/29/2021 07/10/2022 Overview: 04/29/2021This is an unplanned . Patient was on control pills. She states I am nervous about the because having 3 children is a lot. She plans on keeping the baby. Father of the baby is involved. He is the father of her other children. TKRN Nausea and vomiting in 01/25/2020 11/05/2022 Overview: 07/09/2022atient was seen at [facility] on June 29 for nausea and vomiting. Currently taking Zofran and this is helping to relieve her symptoms.Dietary considerations discussed . Advised patient to call/come in if she is unable to keep any food or fluids down in a 24-hour period. TKRN History of hypotension 01/25/202005/01 Overview: 02/02/2020 Pt has followed up with PCP. Instructed to increase salt intake. 01/25/2020Patient was seen by Dr Carlos 01/11 to discuss medications for low blood pressure. She states she was having syncope from low blood pressure. TKRN Patient request for diagnostic testing 01/25/2020 11/05/2022 Overview: 07/09/2022 Patient desires nuchal ultrasound with sequential testing. Declines NIPT. Patient declines genetic carrier screening testing TKRN Uterine size-date discrepanc y, third trimester 04/19/2018 02/02/2020 Overview: 04/19/18-Growth U/S at 31w6d, AGA, BRIANNA 12.8, 21st percentile. Will continue to watch fundal height. Consider growth U/S closer to 39 weeks. Alejandra Perdomo APRN.CNM Encounter for supervision of normal in teen primigravida, antepartum 04/05/2018 021 Syncope 11/05/2022 Overview: 04/05/18 Has h/o vasovagal syncope. See care everywhere. SW documented as of this encounter (statuses as of 12/10/2022) [facility]10-14-2023 History of Past illness Narrative* Problem Noted Date Diagnosed Date Resolved Date 31 weeks gestation of 12/05/2022 12/08/2022 Prematurity 12/04/2022 12/08/2022 Breech presentation, no version 12/04/2022 12/08/2022 30 weeks gestation of 12/04/2022 12/06/2022 History of delivery, currently in third trimester 12/04/2022 12/08/2022 labor in third trime ster without delivery 12/04/2022 12/08/2022 threatened labor 11/27/2022 Overview: -started yesterday evening, not improved with tylenol, irregular, feel like labor pains -cervix 2/60/-3 -no concerns for STDs, no abnormal discharge -udip ordered -plan to recheck cervix in 2 hours labor without delive ry, second trimester 11/05/2022 11/30/2022 Overview: -Patient with painful uterine contractions and had cervical dilation/made change while being evaluated in the OB ED -s/p epidural for pain control Short cervix during pregnanc y in second trimester 11/05/2022 11/30/2022 History of delivery, currently in second trimester 11/05/2022 11/08/2022 Abdominal pain affecting 11/04/2022 11/05/2022 Overview: - reporting contractions overnight, resolved in VIKASH - good movement, no vaginal bleeding or leakage of fluid - taking flagyl for bacterial vaginosis - urine dip negative for UTI - monitored x2 hours, no contractions during that time - patient comfortable with discharge at this time - given strict return precautions for labor, decreased movement, leakage of fluid, or vaginal bleeding - follow up for routine care in one week as scheduled Short interval between pregn ancies affecting in third trimester, antepartum 11/04/2022 11/30/2022 Overview: -Last delivery 11/14/21 27 weeks gestation of 11/04/2022 11/30/2022 Overview: - consult placed -Betamethasone given 11/05-11/06 -s/p Magnesium for neuroprotection -GBS negative -Daily NST's Poor growth affecting management of mother in third trimester 08/21/2021 07/10/2022 Overview: EFW 6% at 34 weeks. Weekly BPP's. Delivery 38-39 weeks. SW 08/21/21- 23.6 weeks gestation. Measuring 3 weeks behind- will continue to monitor. Pam Yarbrough APRN.CNM Subchorionic hematoma in first trimester 05/09/2021 07/10/2022 Overview: 05/09/21- visualized on TAUS. Pam Yarbrough APRN.CNM Supervision of other high ri sk pregnancies, second trimester 04/29/2021 11/05/2022 Overview: 07/09/2022atient delivered her previous child on November 14, 2021. TKRN on oral contraceptive 04/29/2021 07/10/2022 Overview: 04/29/2021This is an unplanned . Patient was on control pills. She states I am nervous about the because having 3 children is a lot. She plans on keeping the baby. Father of the baby is involved. He is the father of her other children. TKRN Nausea and vomiting in 01/25/2020 11/05/2022 Overview: 07/09/2022atient was seen at [facility] on June 29 for nausea and vomiting. Currently taking Zofran and this is helping to relieve her symptoms.Dietary considerations discussed . Advised patient to call/come in if she is unable to keep any food or fluids down in a 24-hour period. TKRN History of hypotension 01/25/202005/01 Overview: 02/02/2020 Pt has followed up with PCP. Instructed to increase salt intake. SW 01/25/2020Patient was seen by Dr Carlos 01/11 to discuss medications for low blood pressure. She states she was having syncope from low blood pressure. TKRN Patient request for diagnostic testing 01/25/2020 11/05/2022 Overview: 07/09/2022 Patient desires nuchal ultrasound with sequential testing. Declines NIPT. Patient declines genetic carrier screening testing TKRN Uterine size-date discrepanc y, third trimester 04/19/2018 02/02/2020 Overview: 04/19/18-Growth U/S at 31w6d, AGA, BRIANNA 12.8, 21st percentile. Will continue to watch fundal height. Consider growth U/S closer to 39 weeks. Alejandra Perdomo APRN.CNM Encounter for supervision of normal in teen primigravida, antepartum 04/05/2018 021 Syncope 11/05/2022 Overview: 04/05/18 Has h/o vasovagal syncope. See care everywhere. SW documented as of this encounter (statuses as of 12/10/2022) [facility] History of Past illness Narrative* Problem Noted Date Diagnosed Date Resolved Date 31 weeks gestation of 12/05/2022 12/08/2022 Prematurity 12/04/2022 12/08/2022 Breech presentation, no version 12/04/2022 12/08/2022 30 weeks gestation of 12/04/2022 12/06/2022 History of delivery, currently in third trimester 12/04/2022 12/08/2022 labor in third trime ster without delivery 12/04/2022 12/08/2022 threatened labor 11/27/2022 Overview: -started yesterday evening, not improved with tylenol, irregular, feel like labor pains -cervix 2/60/-3 -no concerns for STDs, no abnormal discharge -udip ordered -plan to recheck cervix in 2 hours labor without delive ry, second trimester 11/05/2022 11/30/2022 Overview: -Patient with painful uterine contractions and had cervical dilation/made change while being evaluated in the OB ED -s/p epidural for pain control Short cervix during pregnanc y in second trimester 11/05/2022 11/30/2022 History of delivery, currently in second trimester 11/05/2022 11/08/2022 Abdominal pain affecting 11/04/2022 11/05/2022 Overview: - reporting contractions overnight, resolved in VIKASH - good movement, no vaginal bleeding or leakage of fluid - taking flagyl for bacterial vaginosis - urine dip negative for UTI - monitored x2 hours, no contractions during that time - patient comfortable with discharge at this time - given strict return precautions for labor, decreased movement, leakage of fluid, or vaginal bleeding - follow up for routine care in one week as scheduled Short interval between pregn ancies affecting in third trimester, antepartum 11/04/2022 11/30/2022 Overview: -Last delivery 11/14/21 27 weeks gestation of 11/04/2022 11/30/2022 Overview: - consult placed -Betamethasone given 11/05-11/06 -s/p Magnesium for neuroprotection -GBS negative -Daily NST's Poor growth affecting management of mother in third trimester 08/21/2021 07/10/2022 Overview: EFW 6% at 34 weeks. Weekly BPP's. Delivery 38-39 weeks. SW 08/21/21- 23.6 weeks gestation. Measuring 3 weeks behind- will continue to monitor. Pam Yarbrough APRN.CNM Subchorionic hematoma in first trimester 05/09/2021 07/10/2022 Overview: 05/09/21- visualized on TAUS. Pam Yarbrough APRN.CNM Supervision of other high ri sk pregnancies, second trimester 04/29/2021 11/05/2022 Overview: 3Patient delivered her previous child on November 14, 2021. TKRN on oral contraceptive 04/29/2021 07/10/2022 Overview: 04/29/2021This is an unplanned . Patient was on control pills. She states I am nervous about the because having 3 children is a lot. She plans on keeping the baby. Father of the baby is involved. He is the father of her other children. TKRN Nausea and vomiting in 01/25/2020 11/05/2022 Overview: 07/09/2022atient was seen at [facility] on June 29 for nausea and vomiting. Currently taking Zofran and this is helping to relieve her symptoms.Dietary considerations discussed . Advised patient to call/come in if she is unable to keep any food or fluids down in a 24-hour period. TKRN History of hypotension 01/25/202005/01 Overview: 02/02/2020 Pt has followed up with PCP. Instructed to increase salt intake. 01/25/2020Patient was seen by Dr Carlos 01/11 to discuss medications for low blood pressure. She states she was having syncope from low blood pressure. TKRN Patient request for diagnostic testing 01/25/2020 11/05/2022 Overview: 07/09/2022 Patient desires nuchal ultrasound with sequential testing. Declines NIPT. Patient declines genetic carrier screening testing TKRN Uterine size-date discrepanc y, third trimester 04/19/2018 02/02/2020 Overview: 04/19/18-Growth U/S at 31w6d, AGA, BRIANNA 12.8, 21st percentile. Will continue to watch fundal height. Consider growth U/S closer to 39 weeks. Alejandra Perdomo APRN.CNM Encounter for supervision of normal in teen primigravida, antepartum 04/05/2018 021 Syncope 11/05/2022 Overview: 04/05/18 Has h/o vasovagal syncope. See care everywhere. SW documented as of this encounter (statuses as of 12/18/2022) [facility] History of Past illness Narrative* Problem Noted Date Diagnosed Date Resolved Date 31 weeks gestation of 12/05/2022 12/08/2022 Prematurity 12/04/2022 12/08/2022 Breech presentation, no version 12/04/2022 12/08/2022 30 weeks gestation of 12/04/2022 12/06/2022 History of delivery, currently in third trimester 12/04/2022 12/08/2022 labor in third trime ster without delivery 12/04/2022 12/08/2022 threatened labor 11/27/2022 Overview: -started yesterday evening, not improved with tylenol, irregular, feel like labor pains -cervix 2/60/-3 -no concerns for STDs, no abnormal discharge -udip ordered -plan to recheck cervix in 2 hours labor without delive ry, second trimester 11/05/2022 11/30/2022 Overview: -Patient with painful uterine contractions and had cervical dilation/made change while being evaluated in the OB ED -s/p epidural for pain control Short cervix during pregnanc y in second trimester 11/05/2022 11/30/2022 History of delivery, currently in second trimester 11/05/2022 11/08/2022 Abdominal pain affecting 11/04/2022 11/05/2022 Overview: - reporting contractions overnight, resolved in VIKASH - good movement, no vaginal bleeding or leakage of fluid - taking flagyl for bacterial vaginosis - urine dip negative for UTI - monitored x2 hours, no contractions during that time - patient comfortable with discharge at this time - given strict return precautions for labor, decreased movement, leakage of fluid, or vaginal bleeding - follow up for routine care in one week as scheduled Short interval between pregn ancies affecting in third trimester, antepartum 11/04/2022 11/30/2022 Overview: -Last delivery 11/14/21 27 weeks gestation of 11/04/2022 11/30/2022 Overview: - consult placed -Betamethasone given 11/05-11/06 -s/p Magnesium for neuroprotection -GBS negative -Daily NST's Poor growth affecting management of mother in third trimester 08/21/2021 07/10/2022 Overview: EFW 6% at 34 weeks. Weekly BPP's. Delivery 38-39 weeks. SW 08/21/21- 23.6 weeks gestation. Measuring 3 weeks behind- will continue to monitor. Pam Yarbrough APRN.CNM Subchorionic hematoma in first trimester 05/09/2021 07/10/2022 Overview: 05/09/21- visualized on TAUS. Pam Yarbrough APRN.CNM Supervision of other high ri sk pregnancies, second trimester 04/29/2021 11/05/2022 Overview: 07/09/2022atient delivered her previous child on November 14, 2021. TKRN on oral contraceptive 04/29/2021 07/10/2022 Overview: 04/29/2021This is an unplanned . Patient was on control pills. She states I am nervous about the because having 3 children is a lot. She plans on keeping the baby. Father of the baby is involved. He is the father of her other children. TKRN Nausea and vomiting in 01/25/2020 11/05/2022 Overview: 07/09/2022atient was seen at [facility] on June 29 for nausea and vomiting. Currently taking Zofran and this is helping to relieve her symptoms.Dietary considerations discussed . Advised patient to call/come in if she is unable to keep any food or fluids down in a 24-hour period. TKRN History of hypotension 01/25/202005/01 Overview: 02/02/2020 Pt has followed up with PCP. Instructed to increase salt intake. SW 01/25/2020Patient was seen by Dr Carlos 01/11 to discuss medications for low blood pressure. She states she was having syncope from low blood pressure. TKRN Patient request for diagnostic testing 01/25/2020 11/05/2022 Overview: 07/09/2022 Patient desires nuchal ultrasound with sequential testing. Declines NIPT. Patient declines genetic carrier screening testing TKRN Uterine size-date discrepanc y, third trimester 04/19/2018 02/02/2020 Overview: 04/19/18-Growth U/S at 31w6d, AGA, BRIANNA 12.8, 21st percentile. Will continue to watch fundal height. Consider growth U/S closer to 39 weeks. Alejandra Perdomo APRN.CNM Encounter for supervision of normal in teen primigravida, antepartum 04/05/2018 021 Syncope 11/05/2022 Overview: 04/05/18 Has h/o vasovagal syncope. See care everywhere. SW documented as of this encounter (statuses as of 12/20/2022) [facility]10-14-2023 History of Past illness Narrative* Problem Noted Date Diagnosed Date Resolved Date 31 weeks gestation of 12/05/2022 12/08/2022 Prematurity 12/04/2022 12/08/2022 Breech presentation, no version 12/04/2022 12/08/2022 30 weeks gestation of 12/04/2022 12/06/2022 History of delivery, currently in third trimester 12/04/2022 12/08/2022 labor in third trime ster without delivery 12/04/2022 12/08/2022 threatened labor 11/27/2022 Overview: -started yesterday evening, not improved with tylenol, irregular, feel like labor pains -cervix 2/60/-3 -no concerns for STDs, no abnormal discharge -udip ordered -plan to recheck cervix in 2 hours labor without delive ry, second trimester 11/05/2022 11/30/2022 Overview: -Patient with painful uterine contractions and had cervical dilation/made change while being evaluated in the OB ED -s/p epidural for pain control Short cervix during pregnanc y in second trimester 11/05/2022 11/30/2022 History of delivery, currently in second trimester 11/05/2022 11/08/2022 Abdominal pain affecting 11/04/2022 11/05/2022 Overview: - reporting contractions overnight, resolved in VIKASH - good movement, no vaginal bleeding or leakage of fluid - taking flagyl for bacterial vaginosis - urine dip negative for UTI - monitored x2 hours, no contractions during that time - patient comfortable with discharge at this time - given strict return precautions for labor, decreased movement, leakage of fluid, or vaginal bleeding - follow up for routine care in one week as scheduled Short interval between pregn ancies affecting in third trimester, antepartum 11/04/2022 11/30/2022 Overview: -Last delivery 11/14/21 27 weeks gestation of 11/04/2022 11/30/2022 Overview: - consult placed -Betamethasone given 11/05-11/06 -s/p Magnesium for neuroprotection -GBS negative -Daily NST's Poor growth affecting management of mother in third trimester 08/21/2021 07/10/2022 Overview: EFW 6% at 34 weeks. Weekly BPP's. Delivery 38-39 weeks. SW 08/21/21- 23.6 weeks gestation. Measuring 3 weeks behind- will continue to monitor. Pam Yarbrough APRN.CNM Subchorionic hematoma in first trimester 05/09/2021 07/10/2022 Overview: 05/09/21- visualized on TAUS. Pam Yarbrough APRN.CNM Supervision of other high ri sk pregnancies, second trimester 04/29/2021 11/05/2022 Overview: 07/09/2022atient delivered her previous child on November 14, 2021. TKRN on oral contraceptive 04/29/2021 07/10/2022 Overview: 04/29/2021This is an unplanned . Patient was on control pills. She states I am nervous about the because having 3 children is a lot. She plans on keeping the baby. Father of the baby is involved. He is the father of her other children. TKRN Nausea and vomiting in 01/25/2020 11/05/2022 Overview: 07/09/2022atient was seen at [facility] on June 29 for nausea and vomiting. Currently taking Zofran and this is helping to relieve her symptoms.Dietary considerations discussed . Advised patient to call/come in if she is unable to keep any food or fluids down in a 24-hour period. TKRN History of hypotension 01/25/202005/01 Overview: 02/02/2020 Pt has followed up with PCP. Instructed to increase salt intake. SW 01/25/2020Patient was seen by Dr Carlos 01/11 to discuss medications for low blood pressure. She states she was having syncope from low blood pressure. TKRN Patient request for diagnostic testing 01/25/2020 11/05/2022 Overview: 07/09/2022 Patient desires nuchal ultrasound with sequential testing. Declines NIPT. Patient declines genetic carrier screening testing TKRN Uterine size-date discrepanc y, third trimester 04/19/2018 02/02/2020 Overview: 04/19/18-Growth U/S at 31w6d, AGA, BRIANNA 12.8, 21st percentile. Will continue to watch fundal height. Consider growth U/S closer to 39 weeks. Alejandra Perdomo APRN.CNM Encounter for supervision of normal in teen primigravida, antepartum 04/05/2018 021 Syncope 11/05/2022 Overview: 04/05/18 Has h/o vasovagal syncope. See care everywhere. SW documented as of this encounter (statuses as of 12/23/2022) [facility]10-14-2023 NoteHNO ID: [id number] Author: Jeet Calloway MD Service: Nursing Author Type: Physician Type: Procedures Filed: 12/05/2022 10:56 AM Note Text: OBSTETRICS NST SUMMARY SERVICE DATE: December 05, 2022 The patient is a 22 year old female, , who is at 31w0d with an CHRIS of 02/06/2023, by Last Menstrual Period dating method. NST OBJECTIVE FINDINGS PER NURSE: Start Time: 754 (12/05/22754 : Ana María Gibson RN) Complete Time: 819 (12/05/22819 : Ana María Gibson RN) Indications: Labor (12/05/22754 : Ana María Gibson, PAIGE) Patient Reason For: MOnitor wellbeing (12/05/22754 : Ana María Gibson, PAIGE) NST Explanation: Procedure Explained;Monitor Explained;Verbalizes Understanding (12/05/22754 : Ana María Gibson, PAIGE) Acoustic Stimulator: Interventions: Other (See Comment) (none needed) (12/05/22819 : Ana María Gibson RN) MONITORING/ASSESSMENT: Baseline: 140 bpm (12/05/22819 : Ana María Gibson RN) 130 bpm (12/05/22819 : Ana María Gibson RN) Variability: Moderate (6-25 bpm) (12/05/22819 : Ana María Gibson RN) Moderate (6-25 bpm) (12/05/22819 : Ana María Gibson RN) Accelerations: Present (12/05/22819 : Ana María Gibson RN) Present (12/05/22819 : Ana María Gibson RN) Decelerations: Decelerations: None (12/05/22819 : Ana María Gibson RN) Decelerations Fetus B: None (12/05/22819 : Ana María Gibson RN) Contractions: Not present (12/05/22819 : Ana María Gibson RN) Frequency: Above information forwarded to Dr Calloway (12/05/22819 : Ana María Gibson RN) for final review and interpretation. SIGNATURE: Ana María Gibson RN PATIENT NAME: Keshia Silverman DATE: December 05, 2022 TIME: 8:36 AM I personally reviewed the heart rate tracings. The FHR baseline was in the normal range x2. The NST was reactive without evidence of decelerations. At least 2 accelerations of 15 beats lasting for 15 seconds are noted in a 30 minute period for each twin. Regular uterine activity was not regular. IMPRESSION: Reactive NST x2. Jeet Calloway, [facility]10-14-2023 NoteHNO ID: [id number] Author: Jeet Calloway MD Service: Obstetrics Author Type: Physician Type: Progress Notes Filed: 12/05/2022 10:58 AM Note Text: OBSTETRICS ANTEPARTUM PROGRESS NOTE SERVICE DATE: 12/05/2022 SERVICE TIME: 5:09 AM Assessment AND Plan : 22 year old EGA:31w0d admitted for Labor arrested at 4 cm dilation. Plan of care discussed with: Provider, RN, Patient. Active Hospital Problems Diagnosis Date Noted Threatened labor, third trimester 11/05/2022 Overview Note: - presented with progressive painful contractions, patient reports decreased in frequency but same in intensity overnight - recently admitted for threatened labor 11/05- - swabs deferred as patient declines abnormal vaginal discharge, has had negative BV/Trich/GC/CT multiple times this and denies risk factors - Udip negative for signs of UTI - SVE /-2 on admission (changed from 2--2) - Declines pain medication at this time - s/p BMZ and - s/p magnesium sulfate for neuroprotection - NICU consult in AM - GBS negative on 11/26, will defer antibiotics at this time - Regular diet - NST daily - MFM primary, PPG for delivery - Cephalic / Breech - Reviewed that given patient <32 weeks gestation and infants <2000g, some providers may not be comfortable with attempt of breech extraction should labor progress. Patient understanding Breech presentation, no version 12/04/2022 30 weeks gestation of 12/04/2022 History of delivery, currently in third trimester 12/04/2022 labor in third trimester without delivery 12/04/2022 Anemia affecting 11/07/2022 Overview Note: -Iron studies, Ferritin and B12 with evidence of iron and B12 deficiency -s/p Venofer daily for 5 days starting 11/07 -Active TANDS every 72 hours - Hgb 10. 8 on admission (in 7's in mid-October) Monochorionic diamniotic twin gestation 07/10/2022 Overview Note: - Following with [facility] in [place] - Has been getting ultrasounds for TTTS including umbilical artery dopplers every 2 weeks starting at 16 weeks - Adequate and concordant growth @ 29w5d - PLAN: - Growth ultrasound every 4 weeks - MCA Dopplers every 2 weeks starting at 26 weeks - Plan for weekly BPP at 32 weeks History of prior with IUGR 07/09/2022 Overview Note: -Patient has a history of IUGR with her last -Recent growth US 29w5d Baby A 29% AC 53% 1,395 g Baby B 15% AC 33% 1,302 g Request for sterilization 09/18/2021 Overview Note: -Patient states she was planning to have a tubal ligation before she found out she was -Desires bilateral tubal sterilization -Medicaid consent form signed on admission 11/05/22 History of depression and anxiety 01/25/2020 Overview Note: -Pt has a history of depression diagnosed after the of her first child. She did have counseling with [facility]. She has a history of anxiety after the of her last child. -Mood stable at this time Family history of congenital heart defect 01/25/2020 Overview Note: -FOB's grandmother with history of VSD that was repaired - Normal echo Subjective : Contractions have spaced out but are painful when they do occur. No current vaginal bleeding, No current leaking of fluid, and Good movement. Denies headaches, chest pain, shortness of breath. Objective : LAST VITALS: Pulse BP Resp O2 Sat Temp Pain 75 106/53 18 97 % 36.2 ?C (97.2 ?F) 0 PHYSICAL EXAM: General: WD, WN Heart: RR Lungs: clear to auscultation Abdomen: soft, nontender Extremities: tr edema MONITORING/ASSESSMENT: Non-stress test pending LABS Diagnostic tests reviewed for today's visit: Most recent labs and imaging results. SIGNATURE: Jenna Arroyo DO PATIENT NAME: Keshia Silverman DATE: December 05, 2022 TIME: 5:09 AM I personally saw and examined the patient on 12/05/2022. I reviewed the resident's note. I agree with the resident's assessment and plan unless otherwise noted. Patient admitted yesterday for labor. Cervix was advance on admission compared to prior exams. No change since admission. Receiving rescue steroids. Otherwise patient feels well with intermittent back pain. Overall doing well. Will continue to watch in house given advanced cervical exam. Jeet Calloway [facility]10-14-2023 NoteHNO ID: [id number] Author: Note, Interface Service: ? Author Type: ? Type: Progress Notes Filed: 12/05/2022 5:25 AM Note Text: Epic Scheduled Downtime: 12/05/2022 1:00:00 AM to 12/05/2022 [facility]:28[facility]HNO ID: [id number] Author: Emma Wiley MD Service: Obstetrics Author Type: Resident Type: Progress Notes Filed: 12/04/2022 1:58 PM Note Text: Pt continuing to feel contractions. States they feel stronger than prior. Per nursing, isolated episode of leaking with a contraction at 11AM. No leakage since. SSE performed without pooling. Physiologic mucous and discharge present. Given prior check with lubrication, no further testing was performed. Cervix rechecked and unchanged at this time. Fetus A 120/moderate/+accels/no decels Fetus B 125/moderate/+accels/no decels [place] q5-20 min Emma Wiley MD OBGYN PGY-2 Pager #[phone] December 04, 2022 1:54 [facility]10-13-2023 NoteHNO ID: [id number] Author: Yuliana Arcos MD Service: Obstetrics Author Type: Resident Type: Progress Notes Filed: 12/04/2022 4:30 AM Note Text: Called to bedside to evaluate a feeling of chest tightness / as if she cannot take a deep breath in. She is finishing up Magnesium 6g bolus dose for neuroprotection now. She states she had a very similar reaction during her prior admission with magnesium initiation. Denies shortness of breath, chest pain, fevers/chills. Endorses mild dizziness OBJECTIVE: 12/04/22 0339 12/04/22 0345 12/04/22 0350 12/04/22 0355 BP: 115/65 111/64 116/58 116/60 Pulse: 78 94 84 78 Resp: Temp: TempSrc: SpO2: Weight: Height: General: lying comfortably in hospital bed Heart: warm and well-perfused. Normal S1-S2, no murmurs, regular rate Lungs: breathing comfortably on room air, CTAB Abdomen: soft, nondistended, gravid Extremities: trace edema bilaterally, calves symmetric Skin: no visible rashes, urticaria, hives ASSESSMENT: 22 year old at 30w6d admitted for threatened labor PLAN: #Chest Tightness/ Shortness of breath - vitals stable, satting well on room air - Given patient had similar reaction during prior Mag bolus, will continue to monitor closely. Anticipate as magnesium bolus is complete and now running at a lower rate, symptoms to improve. Yuliana Arcos MD MEDICAL OPERATIONS SUPERVISOR PGY-2 December 04, 2022 4:06 [facility]10-10-2023 NoteHNO ID: [id number] Author: Malik Cherry MD Service: ? Author Type: Physician Type: Progress Notes Filed: 12/01/2022 11:49 AM Note Text: Dr. Chapincito Zavala NAME: Keshia Silverman CLINIC Number.: [id number] Date of : 2000 Date of Visit: December 01, [address] Zavala: Ms. Keshia Silverman was seen for echocardiogram and pediatric cardiology consultation on December 01, 2022. She is a 22 year old woman, referred due to mono / di twin . She herself has no significant past medical history. There is no family history of congenital heart disease. echocardiogram on December 01, 2022 at 30 weeks 3 days gestation shows Fetus A - vertex on maternal left 1. No structural abnormalities. 2. No valvular abnormalities. 3. Normal chamber sizes. 4. Qualitatively normal biventricular systolic function. 5. No significant ventricular hypertrophy. 6. Normal heart rate and normal Dopplers. 7. Widely patent aortic and ductal arches. 8. No pericardial effusion. Fetus B - breech on maternal right 1. No structural abnormalities. 2. Mild mitral regurgitation. 3. Normal chamber sizes. 4. Qualitatively normal biventricular systolic function. 5. No significant ventricular hypertrophy. 6. Normal heart rate and normal Dopplers. 7. Widely patent aortic and ductal arches. 8. No pericardial effusion. In summary, the echocardiogram today showed normal intracardiac anatomy with normal ventricular function and normal heart rate and rhythm. Fetus B had mild mitral regurgitation though the valve appeared normal. We discussed these findings with Ms. Keshia Silverman. In addition, the limitations of the echocardiogram and echocardiography in general, including the inability to exclude ASDs, some VSDs, minor valvar abnormalities, partial anomalous pulmonary venous return, persistent patent ductus arteriosus, and coarctation of the aorta, were explained. We would recommend a echocardiogram for baby B after delivery within the first 2 weeks - our office will work to coordinate. Thank you for allowing me to participate in the care of your patient and please do not hesitate to contact me if I can be any further assistance. During this patient visit I have reviewed prior notes and imaging including from referring maternal medicine specialists, devoted time to counseling/coordination of care regarding results of the echocardiogram, clincal manifestations of the identified disease, prognosis, test results and treatment options, formulated and provided my recommendations to other caregivers by verbal and written communication as appropriate and assisted in coordination of care as needed. I spent a total of 70 minutes on the date of the service which included preparing to see the patient, [id number] patient care, completing clinical documentation, obtaining and/or reviewing separately obtained history, counseling and educating the patient/family/caregiver, ordering medications, tests, or procedures, independently interpreting results (not separately reported), and communicating results to the patient/family/caregiver. Sincerely, Dr. Malik Parraisis [facility]10-10-2023 History of Present illness Narrative* Malik Cherry MD - 12/01/2022 11:[address] Chapincito Zavala NAME: Keshia Silverman CLINIC Number.: [id number] Date of : 2000 Date of Visit: December 01, [address] Zavala: Ms. Keshia Silverman was seen for echocardiogram and pediatric cardiology consultation on December 01, 2022. She is a 22 year old woman, referred due to mono / di twin . She herself has no significant past medical history. There is no family history of congenital heart disease. echocardiogram on December 01, 2022 at 30 weeks 3 days gestation shows Fetus A - vertex on maternal left 1. No structural abnormalities. 2. No valvular abnormalities. 3. Normal chamber sizes. 4. Qualitatively normal biventricular systolic function. 5. No significant ventricular hypertrophy. 6. Normal heart rate and normal Dopplers. 7. Widely patent aortic and ductal arches. 8. No pericardial effusion. Fetus B - breech on maternal right 1. No structural abnormalities. 2. Mild mitral regurgitation. 3. Normal chamber sizes. 4. Qualitatively normal biventricular systolic function. 5. No significant ventricular hypertrophy. 6. Normal heart rate and normal Dopplers. 7. Widely patent aortic and ductal arches. 8. No pericardial effusion. In summary, the echocardiogram today showed normal intracardiac anatomy with normal ventricular function and normal heart rate and rhythm. Fetus B had mild mitral regurgitation though the valveappeared normal. We discussed these findings with Ms. Keshia Silverman. In addition, the limitations ofthe echocardiogram and echocardiography in general, including the inability to exclude ASDs, some VSDs, minor valvar abnormalities, partial anomalous pulmonary venous return, persistent patent ductus arteriosus, and coarctation of the aorta, were explained. We would recommend a echocardiogram for baby B after delivery within the first 2 weeks - our office will work to coordinate. Thank you for allowing me to participate in the care of your patient and please do not hesitate to contact me if I can be any further assistance. During this patient visit I have reviewed prior notes and imaging including from referring maternalfetal medicine specialists, devoted time to counseling/coordination of care regarding results of the echocardiogram, clincal manifestations of the identified disease, prognosis, test results and treatment options, formulated and provided my recommendations to other caregivers by verbal and written communication as appropriate and assisted in coordination of care as needed. I spent a total of 70 minutes on the date of the service which included preparing to see the patient, [id number] patient care, completing clinical documentation, obtaining and/or reviewing separately obtained history, counseling and educating the patient/family/caregiver, ordering medications, karine ts, or procedures, independently interpreting results (not separately reported), and communicating results to the patient/family/caregiver. Sincerely, Dr. Malik Cherry [facility] NoteHNO ID: [id number] Author: Emma Wiley MD Service: Obstetrics Author Type: Resident Type: Progress Notes Filed: 11/27/2022 4:22 PM Note Text: Attestation signed by Usman Churchill MD at 11/27/2022 4:37 PM I saw and evaluated the patient. Discussed with the resident and agree with resident's findings and plan as documented in the resident's note. Case discussed with the patient in detail. Education completed regarding signs and symptoms of labor and when to present back to the OB ED. She has close follow-up with a echo this coming Wednesday. Then a follow-up the following in the office. Usman Churchill M.D. Pt rechecked . No significant change from prior. Contractions are slightly improved. Udip positive for small ketones only. Prior GBS , new GBS sent with first cervical check in case of labor. Discussed with Dr. Churchill. Okay for discharge at this time. Return precautions (PTL, vaginal bleeding, leakage of fluid) discussed with patient. Emma Wiley MD OBGYN PGY-2 Pager #[phone] November 27, 2022 4:22 [facility]10-06-2023 NoteHNO ID: [id number] Author: Marcie Esparza, RN Service: Obstetrics Author Type: Registered Nurse Type: Procedures Filed: 11/27/2022 3:19 PM Note Text: Attestation signed by Usman Churchill MD at 11/27/2022 4:38 PM PROVIDER INTERPRETATION: Baby A: Category I and Reactive Baby B: Category I and Reactive SIGNATURE: Usman Churchill MD DATE: November 27, 2022 TIME: 4:37 PM OBSTETRICS NST SUMMARY SERVICE DATE: November 27, 2022 The patient is a 22 year old female, , who is at 29w6d with an CHRIS of 02/06/2023, by Last Menstrual Period dating method. NST OBJECTIVE FINDINGS PER NURSE: Start Time: 1440 (11/27/221515 : Marcie Esparza RN) Complete Time: 151 (11/27/221512 : Marcie Esparza RN) Indications: Labor;Multiple Gestation (11/27/221515 : Marcie Esparza RN) Patient Reason For: contractions (11/27/221515 : Marcie Esparza RN) NST Explanation: Procedure Explained;Monitor Explained;Verbalizes Understanding (11/27/221515 : Marcie Esparza RN) Acoustic Stimulator: No (11/27/221512 : Marcie Esparza RN) Interventions: MONITORING/ASSESSMENT: Baseline: 135 bpm (11/27/221512 : Marcie Esparza RN) 135 bpm (11/27/221512 : Marcie Esparza RN) Variability: Moderate (6-25 bpm) (11/27/221512 : Marcie Esparza RN) Moderate (6-25 bpm) (11/27/221512 : Marcie Esparza RN) Accelerations: Present (11/27/221512 : Marcie Espazra RN) Present (11/27/221512 : Marcie Esparza RN) Decelerations: Decelerations: None (11/27/22 1440 : Marcie Esparza RN) Decelerations Fetus B: None (11/27/221512 : Marcie Esparza RN) Contractions: Irregular (11/27/221512 : Marcie Esparza RN) Frequency: x1 (11/27/221512 : Marcie Esparza RN) Above information forwarded to usman Churchill (11/27/221512 : Marcie Esparza RN) for final review and interpretation. SIGNATURE: Marcie Esparza RN PATIENT NAME: Keshia Silverman DATE: November 27, 2022 TIME: 3:18 [facility]10-06-2023 NoteHNO ID: [id number] Author: Emma Wiley MD Service: Obstetrics Author Type: Resident Type: Progress Notes Filed: 11/27/2022 2:53 PM Note Text: Attestation signed by Usman Churchill MD at 11/27/2022 4:38 PM I saw and evaluated the patient. Discussed with the resident and agree with resident's findings and plan as documented in the resident's note. Usman Churchill MD OBSTETRICS OB ED PROGRESS NOTE SERVICE DATE: November 27, 2022 SERVICE TIME: 2:06 PM Subjective Patient's stated reason for arrival: Comtractions/Hip Pain CHIEF COMPLAINT: Contractions HISTORY OF THE PRESENT ILLNESS: The patient is a 22 year old female, , who is at 29w6d with an CHRIS of 02/06/2023, by Last Menstrual Period dating method. Patient is here complaining of irregular contractions since last night. complicated by mono-di twins. Contractions are more painful than the contractions she experienced when she was admitted previously. They are very irregular, sometimes 5 min apart, sometimes 15 min apart. They feel like low abdominal cramping. Feels like labor contractions. She gets abdominal cramping when she has poor lumbar support. She tried placing a pillow behind her back, taking tylenol and resting without resolution. No leakage of fluid or vaginal bleeding. Feeling good movement. PAST MEDICAL HISTORY Diagnosis Date Anemia Encounter for supervision of normal in teen primigravida, antepartum 04/05/2018 Hypotension anxiety depression 2019 difficulty gaining weight during Seizure (HCC) Had Neuro w/u. Related to Syncope. Last seizure in 2017. Syncope patient states due to hypotension PAST SURGICAL HISTORY Procedure Laterality Date NONE OB History T1 L3 SAB0 IAB0 Ectopic0 Multiple0 Live Births3 REVIEW OF SYSTEMS: ROS as per HPI. Objective LAST VITALS: Pulse: 96 BP: 107/72 Resp: 17 Temp: 36.8 ?C (98.2 ?F) SpO2: 99 % Height: 160 cm (5' 3 ) Weight: 55.8 kg (123 lb) BMI: 21.79 PHYSICAL EXAM: General: WD, WN, NAD, comfortable Heart: RR Lungs: normal respiratory effort Abdomen: soft, no masses, gravid Uterus: soft, NT Extremities: no edema Normal external genitalia, Normal urethral meatus CERVICAL EXAM: Dilation: 2 (11/27/22 1411 : Emma Wiley MD) Station: -3 (11/27/22 1411 : Emma Wiley MD) Effacement (%): 60 (11/27/22 1411 : Emma Wiley MD) MONITORING/ASSESSMENT: A 140/moderate/+accels/no decels B 135/moderate/+accels/no decels [place]: irregular x2 LABS Diagnostic tests reviewed for today's visit: Most recent labs and imaging results. Assessment/Plan 22 year old EGA:29w6d. Presenting in contractions. Active Hospital Problems Diagnosis Date Noted contractions 11/27/2022 -started yesterday evening, not improved with tylenol, irregular, feel like labor pains -cervix /-3 -no concerns for STDs, no abnormal discharge -udip ordered -plan to recheck cervix in 2 hours Plan of care discussed with: Provider, RN, Patient. Discussed with Dr. Churchill. SIGNATURE: Emma Wiley MD PATIENT NAME: Keshia Silverman DATE: November 27, 2022 TIME: 2:06 PM [id number] Miscellaneous Notes* Quick Notes - Pam Yarbrough APRN.CNM - 11/26/2022 9:25 AM EDT S: Keshia Silverman is a 22 year old female who presents at 29.5 weeks gestation for a routine visit. Just completed growth US- Baby A- EFW 29% cephalic, Baby B EFW 15%, breech. Completed GCT screening today. Received last iron infusion last week. Repeat CBC today. Denies headache, visual changes, chest pain, shortness of breath, vaginal bleeding, leakage of fluid, or dysuria. Stopped working and resting at home. O: See flow sheet Gen: No apparent distress Abd: Gravid, nontender ASSESSMENT/PLAN: 1. Monochorionic diamniotic twin in third trimester - ICD9: 651.03, V91.02, ICD10: O30.033 (primary diagnosis) 2. 29 weeks gestation of - ICD9: V22.2, ICD10: Z3A.29 3. History of delivery - S/P Betamethasone on 11/04 & 11/05 - Planning on delivery at [facility] P: 1) PTL precautions reviewed and when to call 2) RTO 2 weeks or sooner if needed Pam Yarbrough APRN.CNM documented [facility] Instructions* Patient Instructions* Dallin Skelton Cma - 11/26/2022 8:28 AM EDT SEQUENTIAL SCREENINGS [facility] offers sequential screenings for women who are interested in screenings for chromosomal abnormalities and certain defects during a . The sequential screen combinesultrasound and blood tests to determine the risk of chromosomal abnormalities, including Down's Syndrome (Trisomy 21) and Trisomy 18, as well as open neural tube defects including spina bifida. Ultrasound examination is performed between 11 weeks and 13 weeks gestational age. Blood tests are drawn after the ultrasound and again later in the between 15 and 21 weeks gestational age. Please let your physician know if you are interested in this testing. It will require an appointment withour vacuum technician. This is not an ultrasound performed by a physician in our office during a routine visit. SIGNS AND SYMPTOMS OF LABOR 1. Contractions every 10 minutes or more often 2. Clear, pink, or brownish fluid (water) leaking from vagina 3. Feeling that baby is pushing down, pressure 4. Low, dull backache 5. Cramps that feel like a period 6. Cramps with or without diarrhea If you notice any of the above symptoms, contact our office at [phone] and ask to speak with anurse. After hours, you can call doctors registry at [phone] OR call [facility] at [phone] ask to have the doctor manager retention paged. If you consider this an emergency, dial 2--6 or go to your nearest emergency department. NEED HELP? Are you dealing with a violent or abusive relationship? Are you a victim of rape or sexual assult? Call [facility] ([place]) 24 hour Crisis Hotline: 678.911.7681 or 793-110-0753. MANUAL Your Guide to a Healthy manual is now on-line. Visit [email or web address] to download your free copy documented in this encounterBucyrus [facility]09-22-2023 Miscellaneous Notes* Telephone Encounter - Osmel Eugene - 11/13/2022 8:42 AM EDT Reviewed patient on the 1st time treatment report. The patient does not have a cancer dx or a chemo/radiation regimen. No further Financial Navigator intervention is needed at this time. documented in this encounterBucyrus [facility]09-21-2023 NoteHNO ID: [id number] Author: Joanne Noguera Ma Service: ? Author Type: ? Type: Progress Notes Filed: 11/12/2022 11:07 AM Note Text: Patient identified by name and date of . Keshia Silverman presents today for a vaccination of Tdap. Patient denies an allergy to latex: yes Patient denies a severe (life-threatening) allergy to a previous dose of Tdap, DTP, DTaP, DT or Td vaccine. Yes Patient denies history of epilepsy or neurological problems: Yes Patient is afebrile and denies being moderately or severely ill: Yes Patient denies history of Guillain-Hanover Syndrome (a severe paralytic illness): Yes Tdap Adacel injection was given without incident. See immunizations for details of immunizations administered today. VIS sheet provided: Yes Provider Dr Zavala was present in office at time of injection.[facility]09-21-2023 Miscellaneous Notes* Quick Notes - Chapincito Zavala MD - 11/12/2022 10:49 AM EDT RR- VB No. LOF No. CTXS irreg . Movement: present. Other c/o: No. Medication list reviewed. Physical Exam See Flow Sheet Abd: soft, nontender, gravid Ext: edema: Trace A/P 27w5d Estimated Date of Delivery: 02/06/23 mono/di twins, recently admitted, had BMZ on 913 and 914. growth q 2 weeks kick counts do 28 week labs next visit declines larc tdap today anemia-cont. fe infusions desires tubal,title 19 signed Risks, benefits and alternatives to sterilization have been discussed with the patient. She declines reversible options including LARC. She understands sterilization is permanent, irreversible, risksof failure, regret and ectopic. In addition she understands there are surgical risks as well. Her questions were answered to her satisfaction and consent was signed Chapincito Zavala M.D. documented in this encounterBucyrus [facility] Hospital09-21-2023 History of Present illness Narrative* Mone JeradJoanne - 11/12/2022 10:40 AM EDT Patient identified by name and date of . Keshia Silverman presents today for a vaccination of Tdap. Patient denies an allergy to latex: yes Patient denies a severe (life-threatening) allergy to a previous dose of Tdap, DTP, DTaP, DT or Td vaccine. Yes Patient denies history of epilepsy or neurological problems: Yes Patient is afebrile and denies being moderately or severely ill: Yes Patient denies history of Guillain-Hanover Syndrome (a severe paralytic illness): Yes Tdap Adacel injection was given without incident. See immunizations for details of immunizations administered today. VIS sheet provided: Yes Provider Dr Zavala was present in office at time of injection. documented in this encounterBucyrus [facility]09-21-2023 Instructions* Patient Instructions* Joanne Noguera Ma - 11/12/2022 10:36 AM EDT SEQUENTIAL SCREENINGS [facility] offers sequential screenings for women who are interested in screenings for chromosomal abnormalities and certain defects during a . The sequential screen combinesultrasound and blood tests to determine the risk of chromosomal abnormalities, including Down's Syndrome (Trisomy 21) and Trisomy 18, as well as open neural tube defects including spina bifida. Ultrasound examination is performed between 11 weeks and 13 weeks gestational age. Blood tests are drawn after the ultrasound and again later in the between 15 and 21 weeks gestational age. Please let your physician know if you are interested in this testing. It will require an appointment withour vacuum technician. This is not an ultrasound performed by a physician in our office during a routine visit. SIGNS AND SYMPTOMS OF LABOR 1. Contractions every 10 minutes or more often 2. Clear, pink, or brownish fluid (water) leaking from vagina 3. Feeling that baby is pushing down, pressure 4. Low, dull backache 5. Cramps that feel like a period 6. Cramps with or without diarrhea If you notice any of the above symptoms, contact our office at [phone] and ask to speak with anurse. After hours, you can call doctors registry at [phone] OR call [facility] at [phone] ask to have the doctor manager retention paged. If you consider this an emergency, dial - or go to your nearest emergency department. NEED HELP? Are you dealing with a violent or abusive relationship? Are you a victim of rape or sexual assult? Call [facility] ([facility] 24 hour Crisis Hotline: 530.250.7180 or 274-323-4674. MANUAL Your Guide to a Healthy manual is now on-line. Visit [email or web address] to download your free copy documented in this encounterBucyrus Community Hospital09-20-2023 Miscellaneous Notes* Telephone Encounter - Huong Hagen RN - 11/11/2022 4:15 PM EDT Spoke to patient and notified hematology tried to reach her. Transferred to hem/onc PSS to scheduleiron infusions. Also canceled tomorrow's u/s per u/s tech since patient had one done at [facility] when she was admitted for PTL on 11/09/22. Huong Hagen RN * Telephone Encounter - Huong Hagen RN - 11/10/2022 10:[address] Wiley at [facility] updated too. Leave open until patient calls back and is scheduled. Huong Hagen RN * Telephone Encounter - Lanette Unger - 11/10/2022 10:10 AM EDT LM for patient to return call. When patient calls, please schedule 2 iron infusions 2 days in a row(ok per pharmacist). Lanette Unger * Telephone Encounter - Ana Maria Thompson MD - 11/09/2022 3:15 PM EDT signed * Telephone Encounter - Huong Hagen RN - 11/09/2022 2:27 PM EDT Spoke to Jenna Hill and she stated blood management referral still needs placed for her to proceed. Can one of you you please file order? She is aware we need to expedite this. Huong Hagen RN * Telephone Encounter - Huong Hagen RN - 11/09/2022 2:06 PM EDT 27w2d Patient being discharged from [facility] today. Per Dr. Emma Wiley patient needs venofer 200mg outpatient infusions tomorrow and Wednesday this week. Message sent to blood management to checkon process. Dr. Wiley requesting epic message be sent to her once she is scheduled to update her. Huong Hagen RN documented in this encounterBucyrus [facility] Hospital09-19-2023 Miscellaneous Notes* Telephone Encounter - Yarelis Hermosillo - 11/10/2022 4:39 PM EDT Please see MEDICAL OPERATIONS SUPERVISOR encounter 11/09 * Telephone Encounter - Jenna Yadav RN - 11/10/2022 10:21 AM EDT Signed treatment plan for Venofer 200 mg IV x 2. PA pending. Provider is requesting scheduling nissa. documented in this encounterBucyrus Community Hospital09-18-2023 NoteHNO ID: [id number] Author: Jenna Yadav RN Service: ? Author Type: Registered Nurse Type: Progress Notes Filed: 11/09/2022 5:54 PM Note Text: Patient referred to Blood Management for evaluation and treatment of pre-surgical anemia and/or iron deficiency. Non-surgical: anemia in Date of surgery: NA Medical/Surgical History: PAST MEDICAL HISTORY Diagnosis Date Anemia Encounter for supervision of normal in teen primigravida, antepartum 04/05/2018 Hypotension anxiety depression 2019 difficulty gaining weight during Seizure (HCC) Had Neuro w/u. Related to Syncope. Last seizure in 2017. Syncope patient states due to hypotension PAST SURGICAL HISTORY Procedure Laterality Date NONE Other significant Medical/Surgical history: - Prior diagnosis of anemia Current Outpatient Medications Medication Sig progesterone micronized (PROMETRIUM) 200 mg capsule Use 1 capsule vaginally daily at bedtime. famotidine (PEPCID) 20 mg tablet Take 1 tablet by mouth twice daily. prental multivitamin 27 mg iron- 800 mcg tablet Take 1 tablet by mouth once daily. No current facility-administered medications for this visit. Facility-Administered Medications Ordered in Other Visits Medication Dose Route Frequency docusate sodium 100 mg cap(s) (COLACE) 100 mg ORAL DAILY PRN iron sucrose 200 mg in NaCl 0.9% 100 mL (VENOFER) 200 mg INTRAVENOUS DAILY cyanocobalamin 1,000 mcg tab(s) (VITAMIN B-12) 1,000 mcg ORAL DAILY ondansetron (PF) 4 mg injection (ZOFRAN) 4 mg INTRAVENOUS q 6 H PRN sodium citrate-citric acid 500-334 mg/5 mL 30 mL oral liquid (BICITRA) 30 mL ORAL Pre-Op PRN metoclopramide HCl 10 mg injection (REGLAN) 10 mg INTRAVENOUS Pre-Op PRN tranexamic acid (CYKLOKAPRON) in NaCl 0.7% 1,000 mg 100 mL 1,000 mg INTRAVENOUS Pre-Op PRN NaCl 0.9% iv flush bag 20 mL INTRAVENOUS PRN acetaminophen 975 mg tab(s) (TYLENOL) 975 mg ORAL q 8 H azithromycin 500 mg in D5W 250 mL Vial-Bag (ZITHROMAX) 500 mg INTRAVENOUS Pre-Op PRN gentamicin 270 mg in D5W 100 mL 270 mg INTRAVENOUS Pre-Op PRN calcium gluconate 1 g injection 1 g INTRAVENOUS PRN lidocaine-EPINEPHrine (PF) 1.5 %-1:200,000 injection EPIDURAL PRN bupivacaine 0.125%-fentaNYL 5 mcg/mL-EPINEPHrine 1.25 mcg/mL epidural syringe in NaCl 0.9% 10 mL EPIDURAL PRN bupivacaine (PF) 0.0625%-fentaNYL (PF) 2 mcg/mL epidural in NaCl 0.9% 250 mL EPIDURAL X (ONE-STEP ONLY) CONTINUOUS PRN Current medications that may affect iron absorption and/or blood loss: - None Baseline laboratory values: WBC (k/uL) Date Value 11/07/2022 15.79 (H) RBC (m/uL) Date Value 11/07/2022 3.40 (L) Hemoglobin (g/dL) Date Value 11/07/2022 7.1 (L) Hematocrit (%) Date Value 11/07/2022 24.2 (L) MCV (fL) Date Value 11/07/2022 71.2 (L) MCH (pg) Date Value 11/07/2022 20.9 (L) MCHC (g/dL) Date Value 11/07/2022 29.3 (L) RDW-CV (%) Date Value 11/07/2022 16.0 (H) Platelet Count (k/uL) Date Value 11/07/2022 272 MPV (fL) Date Value 11/07/2022 10.3 Iron Date Value Ref Range Status 11/07/2022 15 (L) 41 - 186 ug/dL Final TIBC Date Value Ref Range Status 11/07/2022 >515 (H) 232 - 386 ug/dL Final Ferritin Date Value Ref Range Status 11/07/2022 5.2 (L) 14.7 - 205.1 ng/mL Final Vitamin B12 Date Value Ref Range Status 11/07/2022 191 (L) 232 - 1,245 pg/mL Final Transferrin Saturation Date Value Ref Range Status 11/07/2022 <2.9 (L) 15.0 - 57.0 % Final Assess for the need to augment a patient?s natural red blood cell production: - Blood transfusion avoidance - Iron depletion Recommendations according to Blood Management patient care guidelines: - Iron Sucrose 200 mg, IV infusion, dose(s) 2 (received Venofer 200 mg IV x 3 while in hospital) total iron deficit using Ganzoni equation = 921 mg (pre- wt 45 kg/goal hgb 11 g/dL) Clinical information is sent to a provider for review and evaluation for treatment.[facility]09-18-20[facility] History of Present illness Narrative* Jenna Yadav, PAIGE - 11/09/2022 5:51 PM EDT Patient referred to Blood Management for evaluation and treatment of pre- surgical anemia and/or iron deficiency. Non-surgical: anemia in Date of surgery: NA Medical/Surgical History: PAST MEDICAL HISTORY Diagnosis Date Anemia Encounter for supervision of normal in teen primigravida, antepartum 04/05/2018 Hypotension anxiety depression 2019 difficulty gaining weight during Seizure (HCC) Had Neuro w/u. Related to Syncope. Last seizure in 2017. Syncope patient states due to hypotension PAST SURGICAL HISTORY Procedure Laterality Date NONE Other significant Medical/Surgical history: - Prior diagnosis of anemia Current Outpatient Medications Medication Sig progesterone micronized (PROMETRIUM) 200 mg capsule Use 1 capsule vaginally daily at bedtime. famotidine (PEPCID) 20 mg tablet Take 1 tablet by mouth twice daily. prental multivitamin 27 mg iron- 800 mcg tablet Take 1 tablet by mouth once daily. No current facility-administered medications for this visit. Facility-Administered Medications Ordered in Other Visits Medication Dose Route Frequency docusate sodium 100 mg cap(s) (COLACE) 100 mg ORAL DAILY PRN iron sucrose 200 mg in NaCl 0.9% 100 mL (VENOFER) 200 mg INTRAVENOUS DAILY cyanocobalamin 1,000 mcg tab(s) (VITAMIN B-12) 1,000 mcg ORAL DAILY ondansetron (PF) 4 mg injection (ZOFRAN) 4 mg INTRAVENOUS q 6 H PRN sodium citrate-citric acid 500-334 mg/5 mL 30 mL oral liquid (BICITRA) 30 mL ORAL Pre-Op PRN metoclopramide HCl 10 mg injection (REGLAN) 10 mg INTRAVENOUS Pre-Op PRN tranexamic acid (CYKLOKAPRON) in NaCl 0.7% 1,000 mg 100 mL 1,000 mg INTRAVENOUS Pre-Op PRN NaCl 0.9% iv flush bag 20 mL INTRAVENOUS PRN acetaminophen 975 mg tab(s) (TYLENOL) 975 mg ORAL q 8 H azithromycin 500 mg in D5W 250 mL Vial-Bag (ZITHROMAX) 500 mg INTRAVENOUS Pre-Op PRN gentamicin 270 mg in D5W 100 mL 270 mg INTRAVENOUS Pre-Op PRN calcium gluconate 1 g injection 1 g INTRAVENOUS PRN lidocaine-EPINEPHrine (PF) 1.5 %-1:200,000 injection EPIDURAL PRN bupivacaine 0.125%-fentaNYL 5 mcg/mL-EPINEPHrine 1.25 mcg/mL epidural syringe in NaCl 0.9% 10 mL EPIDURAL PRN bupivacaine (PF) 0.0625%-fentaNYL (PF) 2 mcg/mL epidural in NaCl 0.9% 250 mL EPIDURAL X (ONE-STEP ONLY) CONTINUOUS PRN Current medications that may affect iron absorption and/or blood loss: - None Baseline laboratory values: WBC (k/uL) Date Value 11/07/2022 15.79 (H) RBC (m/uL) Date Value 11/07/2022 3.40 (L) Hemoglobin (g/dL) Date Value 11/07/2022 7.1 (L) Hematocrit (%) Date Value 11/07/2022 24.2 (L) MCV (fL) Date Value 11/07/2022 71.2 (L) MCH (pg) Date Value 11/07/2022 20.9 (L) MCHC (g/dL) Date Value 11/07/2022 29.3 (L) RDW-CV (%) Date Value 11/07/2022 16.0 (H) Platelet Count (k/uL) Date Value 11/07/2022 272 MPV (fL) Date Value 11/07/2022 10.3 Iron Date Value Ref Range Status 11/07/2022 15 (L) 41 - 186 ug/dL Final TIBC Date Value Ref Range Status 11/07/2022 >515 (H) 232 - 386 ug/dL Final Ferritin Date Value Ref Range Status 11/07/2022 5.2 (L) 14.7 - 205.1 ng/mL Final Vitamin B12 Date Value Ref Range Status 11/07/2022 191 (L) 232 - 1,245 pg/mL Final Transferrin Saturation Date Value Ref Range Status 11/07/2022 <2.9 (L) 15.0 - 57.0 % Final Assess for the need to augment a patient s natural red blood cell production: - Blood transfusion avoidance - Iron depletion Recommendations according to Blood Management patient care guidelines: - Iron Sucrose 200 mg, IV infusion, dose(s) 2 (received Venofer 200 mg IV x 3 while in hospital) total iron deficit using Ganzoni equation = 921 mg (pre- wt 45 kg/goal hgb 11 g/dL) Clinical information is sent to a provider for review and evaluation for treatment. documented in this encounterBucyrus [facility]09-18-2023 NoteHNO ID: [id number] Author: Minerva Hussein RN Service: Maternal Medicine Author Type: Registered Nurse Type: Procedures Filed: 11/09/2022 12:54 PM Note Text: Attestation signed by Hubert Brito MD at 11/09/2022 4:12 PM Reactive for gestational age sharonda Brito Division of Maternal Medicine [facility] OBSTETRICS NST SUMMARY SERVICE DATE: November 09, 2022 The patient is a 22 year old female, , who is at 27w2d with an CHRIS of 02/06/2023, by Last Menstrual Period dating method. NST OBJECTIVE FINDINGS PER NURSE: Start Time: 1008 Complete Time: 1028 Indications: Twins, PTL Patient Reason For: Twins NST Explanation: yes Acoustic Stimulator: no Interventions: none MONITORING/ASSESSMENT: Baseline: 150 bpm (11/09/22 1043 : Minerva Hussein RN) 145 bpm (11/09/22 1043 : Minerva Hussein RN) Variability: Moderate (6-25 bpm) (11/09/22 1043 : Minerva Hussein RN) Moderate (6-25 bpm) (11/09/22 1043 : Minerva Hussein RN) Accelerations: Present (11/09/22 1043 : Minerva Hussein RN) Present (11/09/22 1043 : Minerva Hussein RN) Decelerations: Decelerations: None (11/09/22 1043 : Minerva Hussein RN) Decelerations Fetus B: (!) Variable (11/09/22 1043 : Minerva Hussein RN) Decel Frequency Fetus B: Intermittent (11/09/22 1043 : Minerva Hussein RN) Contractions: Irregular (11/09/22 1043 : Minerva Hussein RN) Frequency: 2-10 (11/09/22 1043 : Minerva Hussein RN) Above information forwarded to for final review and interpretation. SIGNATURE: Minerva Hussein RN PATIENT NAME: Keshia Silverman DATE: November 09, 2022 TIME: 12:52 [facility]09-18-2023 NoteHNO ID: [id number] Author: Emma Wiley MD Service: Obstetrics Author Type: Resident Type: Progress Notes Filed: 11/09/2022 6:14 AM Note Text: Attestation signed by Hubert Brito MD at 11/09/2022 4:15 PM Attending Note I evaluated the patient and personally participated in the marcus components. I agree with the resident's findings and plan as documented and have discussed the case and management of the patient's care with the resident. Admitted for contractions in the setting of a history of PTD and a current monodi . Contractions have eased. Ultrasound shows no signs of TTTS or TAPS. Was noted to be anemic and is receiving iron transfusions BP 106/56 Pulse 90 Temp 37.1 ?C (98.8 ?F) (Oral) Resp 17 Ht 160 cm (5' 3 ) Wt 53.5 kg (118 lb) LMP 05/02/2022 (Exact Date) SpO2 98% BMI 20.90 kg/m? Plan Can be discharged with follow up with provider Can get iron transfusions in the outpatient setting Signature: Hubert Brito MD Date: 11/09/2022 Time: 4:12 PM OBSTETRICS ANTEPARTUM PROGRESS NOTE SERVICE DATE: 11/09/2022 SERVICE TIME: 6:12 AM Assessment AND Plan : 22 year old EGA:27w2d admitted for Labor arrested at 3 cm dilation. Plan of care discussed with: Provider, RN, Patient. Principal Problem: Active Hospital Problems Diagnosis Date Noted labor without delivery, second trimester 11/05/2022 Priority: A -Patient with painful uterine contractions and had cervical dilation/made change while being evaluated in the OB ED -s/p epidural for pain control Monochorionic diamniotic twin gestation 07/10/2022 Priority: A - Following with [facility] in [place] - Has been getting ultrasounds for TTTS including umbilical artery dopplers every 2 weeks starting at 16 weeks - PLAN: - Growth ultrasound every 4 weeks - MCA Dopplers every 2 weeks starting at 26 weeks - Plan for weekly BPP at 32 weeks Anemia affecting 11/07/2022 Priority: B -Hgb 7.6->7.1 on admission -Iron studies, Ferritin and B12 with evidence of iron and B12 deficiency -Venofer daily for 5 days starting 11/07 -B12 1,000 u Daily -Active TANDS every 72 hours -2 units typed and crossed if needed -nutrition consult Short cervix during in second trimester 11/05/2022 Priority: B 27 weeks gestation of 11/04/2022 Priority: B - consult placed -Betamethasone given 11/05-11/06 -s/p Magnesium for neuroprotection -GBS negative -Daily NST's Request for sterilization 09/18/2021 Priority: B -Patient states she was planning to have a tubal ligation before she found out she was -Desires bilateral tubal sterilization -Medicaid consent form signed on admission 11/05/22 History of delivery, currently 04/29/2021 Priority: B -History of delivery with her last 2 deliveries -Her first child was born at term, second at 36w3d, third at 36w0d -Had cervical length screening in 2nd trimester with a shortened length of 2.4cm -Has been taking vaginal progesterone nightly Short interval between pregnancies affecting in third trimester, antepartum 11/04/2022 Priority: C -Last delivery 11/14/21 History of prior with IUGR 07/09/2022 Priority: C -Patient has a history of IUGR with her last -Recent growth US @ 25w5d -EFW A 31% -EFW B 23% History of depression and anxiety 01/25/2020 Priority: C -Pt has a history of depression diagnosed after the of her first child. She did have counseling with [employer]. She has a history of anxiety after the of her last child. -Mood stable at this time Family history of congenital heart defect 01/25/2020 Priority: C -FOB's grandmother with history of VSD that was repaired History of seizures Priority: C -Saw cardio and neuro in 2017. See workup in care everywhere. Negative EEG and CT head. Likely related to vasovagal syncope. Not placed on any seizure medications and does not follow with neuro. Last seizure in 2017. Subjective : No current vaginal bleeding, No current leaking of fluid, No contractions, Good movement, No shortness of breath or chest pain, No calf tenderness, and No headache, scotoma, or RUQ pain Objective : LAST VITALS: Pulse BP Resp O2 Sat Temp Pain 77 (!) 95/44 18 97 % 36.5 ?C (97.7 ?F) 0 PHYSICAL EXAM: General: WD, WN, NAD, comfortable Heart: RR Lungs: normal respiratory effort Abdomen: soft, nontender, gravid Extremities: no edema MONITORING/ASSESSMENT: testing reassuring - see additional documentation LABS Diagnostic tests reviewed for today's visit: Most recent labs and imaging results. SIGNATURE: (more content not included)...[facility]09-18-2023 NoteHNO ID: [id number] Author: Luz Peña RN Service: Nursing Author Type: Registered Nurse Type: Procedures Filed: 11/09/2022 12:14 AM Note Text: Attestation signed by Hubert Brito MD at 11/11/2022 12:21 PM Reactive for gestational age Hubert Brito Division of Maternal Medicine [facility] OBSTETRICS NST SUMMARY SERVICE DATE: November 09, 2022 The patient is a 22 year old female, , who is at 27w2d with an CHRIS of 02/06/2023, by Last Menstrual Period dating method. NST OBJECTIVE FINDINGS PER NURSE: Start Time: 2303 (11/08/222327 : Luz Peña RN) Complete Time: 2327 (11/08/222327 : Luz Peña RN) Indications: Other: Comment (11/08/222327 : Luz Peña RN) Patient Reason For: NST Explanation: Procedure Explained;Monitor Explained;Verbalizes Understanding (11/08/222327 : Luz Peña RN) Acoustic Stimulator: Interventions: MONITORING/ASSESSMENT: Baseline: 155 bpm (11/08/222327 : Luz Peña RN) 145 bpm (11/08/222327 : Luz Peña RN) Variability: Moderate (6-25 bpm) (11/08/222327 : Luz Peña RN) Moderate (6-25 bpm) (11/08/222327 : Luz Peña RN) Accelerations: Present (11/08/222327 : Luz Peña RN) Present (11/08/222327 : Luz Peña RN) Decelerations: Decelerations: None (11/08/222327 : Luz Peña RN) Decelerations Fetus B: None (11/08/222327 : Luz Peña RN) Contractions: Not present (11/08/222327 : Luz Peña RN) Frequency: Above information forwarded to desiree mayo (11/08/222327 : Luz Peña RN) for final review and interpretation. SIGNATURE: Luz Peña RN PATIENT NAME: Keshia Silverman DATE: November 09, 2022 TIME: 12:13 [facility]09-17-2023 NoteHNO ID: [id number] Author: Yuliana Arcos MD Service: Obstetrics Author Type: Resident Type: Progress Notes Filed: 11/08/2022 6:55 PM Note Text: SUBJECTIVE: Notified by RN of headache, nausea, palpitations, and hot flushed feeling. She is unsure if the headache is worse than prior. She states it is around a 6 out of 10, dull, and in the front. Has previously received Tylenol at around 4 PM, does not feel this affected her headache much at this time. Her nausea, palpitations, and flushed feeling all started shortly after her Venofer infusion and spontaneously resolved. They have not recurred more recently. Denies fevers chills, chest pain, shortness of breath, right upper quadrant pain or worsening edema. OBJECTIVE: 11/08/22 1140 11/08/22 1735 11/08/22 1800 11/08/22 1805 BP: 93/53 (!) 96/46 (!) 95/49 101/54 Pulse: 90 89 77 86 Resp: 18 18 Temp: 36.7 ?C (98 ?F) 37.2 ?C (99 ?F) TempSrc: Oral Oral SpO2: 98% 97% 98% 96% Weight: Height: General: lying comfortably in hospital bed Heart: warm and well-perfused. Regular rate Lungs: breathing comfortably on room air Abdomen: soft, nondistended, nontender Extremities: trace edema bilaterally, calves symmetric Neuro: Grossly symmetric. ASSESSMENT: 22 year old admitted for threatened labor, now complaining of headache. PLAN: #Headache -Vitals stable, neuro exam reassuring -Status post Tylenol at 1600 - Will administer Reglan and Benadryl now for headache cocktail. - We will continue to monitor for symptomatic improvement #Nausea - Status post Zofran x1 - Reglan as above - Given association of nausea with Venofer transfusions, consider giving dose of Zofran at initiation of transfusion tomorrow Discussed with Dr. Ward. Yuliana Arcos MD MEDICAL OPERATIONS SUPERVISOR PGY-2 November 08, 2022 6:32 [facility]09-17-2023 NoteHNO ID: [id number] Author: Abigail Cruz RN Service: Nursing Author Type: Registered Nurse Type: Procedures Filed: 11/08/2022 5:18 PM Note Text: Attestation signed by Desiree Mayo MD at 11/10/2022 10:57 AM Staff note Reactive nst Desiree Mayo MD OBSTETRICS NST SUMMARY SERVICE DATE: November 08, 2022 The patient is a 22 year old female, , who is at 27w1d with an CHRIS of 02/06/2023, by Last Menstrual Period dating method. NST OBJECTIVE FINDINGS PER NURSE: Start Time: 1210 (11/08/221699 : Abigail Cruz, RN) Complete Time: 1230 (11/08/221699 : Abigail Cruz, PAIGE) Indications: Patient Reason For: NST Explanation: Acoustic Stimulator: Interventions: MONITORING/ASSESSMENT: Baseline: 145 bpm (11/08/221699 : Abigail Cruz, RN) 145 bpm (11/08/221699 : Abigail Cruz, RN) Variability: Moderate (6-25 bpm) (11/08/221699 : Abigail Cruz, PAIGE) Moderate (6-25 bpm) (11/08/221699 : Abigail Cruz RN) Accelerations: Present (11/08/221699 : Abigail Cruz RN) Present (11/08/221699 : Abigail Cruz RN) Decelerations: Decelerations: (!) Variable (11/08/221699 : Abigail Cruz RN) Decel Frequency: Intermittent (11/08/221699 : Abigail Cruz RN) Decelerations Fetus B: None (11/08/221699 : Abigail Cruz RN) Contractions: Irregular (11/08/221699 : Abigail Cruz RN) Frequency: x1 (11/08/221699 : Abigail Cruz RN) Above information forwarded to Desiree Mayo (11/08/221699 : Abigail Cruz RN) for final review and interpretation. SIGNATURE: Abigail Cruz RN PATIENT NAME: Keshia Silverman DATE: November 08, 2022 TIME: 5:17 [facility]09-17-2023 NoteHNO ID: [id number] Author: Gerardo Portillo DO Service: Maternal Medicine Author Type: Resident Type: Progress Notes Filed: 11/08/2022 5:18 AM Note Text: Attestation signed by Desiree Mayo MD at 11/08/2022 12:48 PM Maternal- Medicine Staff Note I saw and evaluated the patient. I personally obtained the marcus and critical portions of the history and physical exam. I reviewed the resident?s documentation and discussed the patient with the resident. I agree with the resident. I agree with the resident?s medical decision making as documented in the resident?s note. 22 year old at 27w1d with mono di twins admitted for labor, painful contractions with cervical change. No pain but does feel irregular contractions. Having some pelvic pressure. No bleeding or leaking. S/p steroids. Had a course of mag for neuro protection. Noted to have significant anemia on admission so iron/b12 studies requested and deficient in both. No symptoms of anemia. Recommend IV iron 200mg daily x 5 days. Recommend b12 1000mcg po daily. If delivering, recommend transfusion 1 unit prbc at that time if hemoglobin is under 8. Recommend type and cross. Do not recommend prophylactic transfusion at this time given short half life of transfused rbc and preference to optimize her nutritionally first. Consider nutrition consultation. Daily NSTS or continuous monitoring for clinical changes or concerns. Encourage scd usage. Consider discharge in the next couple of days if no cervical change. Follow up ultrasound planned for TTTS screening. Desiree Mayo MD OBSTETRICS ANTEPARTUM PROGRESS NOTE SERVICE DATE: 11/08/2022 SERVICE TIME: 5:09 AM Assessment AND Plan : 22 year old EGA:27w1d admitted for labor contractions in the setting of mono-di twin gestation . Plan of care discussed with: Provider, RN, Patient. Active Hospital Problems Diagnosis Date Noted labor without delivery, second trimester 11/05/2022 Overview Note: -Patient with painful uterine contractions and had cervical dilation/made change while being evaluated in the OB ED -s/p epidural for pain control Anemia affecting 11/07/2022 Overview Note: -Hgb 7.6->7.1 on admission -Iron studies, Ferritin and B12 with evidence of iron and B12 deficiency -Venofer daily for 5 days starting 11/07 -B12 1,000 u Daily -Active TANDS every 72 hours -2 units typed and crossed if needed Short cervix during in second trimester 11/05/2022 Short interval between pregnancies affecting in third trimester, antepartum 11/04/2022 Overview Note: -Last delivery 11/14/21 27 weeks gestation of 11/04/2022 Overview Note: - consult placed -Betamethasone given 11/05-9/15 -s/p Magnesium for neuroprotection -GBS negative -Daily NST's Monochorionic diamniotic twin gestation 07/10/2022 Overview Note: - Following with MFM in [place] - Has been getting ultrasounds for TTTS including umbilical artery dopplers every 2 weeks starting at 16 weeks - PLAN: - Growth ultrasound every 4 weeks - MCA Dopplers every 2 weeks starting at 26 weeks - Plan for weekly BPP at 32 weeks History of prior with IUGR 07/09/2022 Overview Note: -Patient has a history of IUGR with her last -Recent growth US @ 25w5d -EFW A 31% -EFW B 23% Request for sterilization 09/18/2021 Overview Note: -Patient states she was planning to have a tubal ligation before she found out she was -Desires bilateral tubal sterilization -Medicaid consent form signed on admission 11/05/22 History of delivery, currently 04/29/2021 Overview Note: -History of delivery with her last 2 deliveries -Her first child was born at term, second at 36w3d, third at 36w0d -Had cervical length screening in 2nd trimester with a shortened length of 2.4cm -Has been taking vaginal progesterone nightly History of depression and anxiety 01/25/2020 Overview Note: -Pt has a history of depression diagnosed after the of her first child. She did have counseling with [employer] [facility] [employer]. She has a history of anxiety after the of her last child. -Mood stable at this time Family history of congenital heart defect 01/25/2020 Overview Note: -FOB's grandmother with history of VSD that was repaired History of seizures Overview Note: -Saw cardio and neuro in 2017. See workup in care everywhere. Negative EEG and CT head. Likely related to vasovagal syncope. Not placed on any seizure medications and does not follow with neuro. Last seizure in 2017. Subjective : Patient was seen and examined this morning. Keshia (more content not included)... [facility]09-17-2023 NoteHNO ID: [id number] Author: Note, Interface Service: ? Author Type: ? Type: Progress Notes Filed: 11/08/2022 3:08 AM Note Text: Epic Scheduled Downtime: 11/08/2022 1:02:01 AM to 11/08/2022 2:21:01 [facility]09-16-2023 NoteHNO ID: [id number] Author: Wilton Chaney MD Service: Obstetrics Author Type: Physician Type: Procedures Filed: 11/07/2022 9:53 PM Note Text: OBSTETRICS NST SUMMARY SERVICE DATE: November 07, 2022 The patient is a 22 year old female, , who is at 27w0d with an CHRIS of 02/06/2023, by Last Menstrual Period dating method. NST OBJECTIVE FINDINGS PER NURSE: Start Time: 2014 (11/07/222034 : Yasmeen Chen RN) Complete Time: 2034 (11/07/222034 : Yasmeen Chen RN) Indications: Patient Reason For: NST Explanation: Procedure Explained;Monitor Explained;Verbalizes Understanding (11/07/222034 : Yasmeen Chen RN) Acoustic Stimulator: Interventions: MONITORING/ASSESSMENT: Baseline: 135 bpm (11/07/222034 : Yasmeen Chen RN) 140 bpm (11/07/222034 : Yasmeen Chen RN) Variability: Moderate (6-25 bpm) (11/07/222034 : Yasmeen Chen RN) Moderate (6-25 bpm) (11/07/222034 : Yasmeen Chen RN) Accelerations: Present (11/07/222034 : Yasmeen Chen RN) Present (11/07/222034 : Yasmeen Chen RN) Decelerations: Decelerations: (!) Variable (11/07/222034 : Yamseen Chen RN) Decel Frequency: Intermittent (11/07/222034 : Yasmeen Chen RN) Decelerations Fetus B: (!) Variable (11/07/222034 : Yasmeen Chen RN) Decel Frequency Fetus B: Intermittent (11/07/222034 : Yasmeen Chen RN) Contractions: Irregular (11/07/222034 : Yasmeen Chen RN) Frequency: x2 (11/07/222034 : Yasmeen Chen RN) Above information forwarded to for final review and interpretation. SIGNATURE: Yasmeen Chen RN PATIENT NAME: Keshia Silverman DATE: November 07, 2022 TIME: 8:56 PM Reassuring tracing for this gestational age, broken in spots.[facility]09-16-2023 NoteHNO ID: [id number] Author: Abigail Cruz, RN Service: Nursing Author Type: Registered Nurse Type: Procedures Filed: 11/07/2022 11:45 AM Note Text: Attestation signed by Desiree Mayo MD at 11/07/2022 6:04 PM Staff note Reactive nst x 2 Desiree Mayo MD OBSTETRICS NST SUMMARY SERVICE DATE: November 07, 2022 The patient is a 22 year old female, , who is at 27w0d with an CHRIS of 02/06/2023, by Last Menstrual Period dating method. NST OBJECTIVE FINDINGS PER NURSE: Start Time: 1030 (11/07/22 1030 : Abigail Cruz, RN) Complete Time: Indications: Labor (11/07/220 : Abigail Cruz, RN) Patient Reason For: labor (11/07/221029 : Abigail Cruz, RN) NST Explanation: Procedure Explained (11/07/221029 : Abigail Cruz, RN) Acoustic Stimulator: Interventions: MONITORING/ASSESSMENT: Baseline: 135 bpm (11/07/220 : Abigail Cruz, RN) 145 bpm (11/07/22 1030 : Abigail Cruz RN) Variability: Moderate (6-25 bpm) (11/07/22 1030 : Abigail Cruz RN) Moderate (6-25 bpm) (11/07/22 1030 : Abigail Cruz RN) Accelerations: Present (11/07/22 1030 : Abigail Cruz RN) Present (11/07/22 1030 : Abigail Cruz RN) Decelerations: Decelerations: None (11/07/22 1030 : Abigail Cruz RN) Decelerations Fetus B: (!) Variable (11/07/22 1030 : Abigail Cruz RN) Decel Frequency Fetus B: Intermittent (11/07/22 1030 : Abigail Cruz RN) Contractions: Irregular (11/07/22 1030 : Abigail Cruz RN) Frequency: x1 (11/07/22 1030 : Abigail Cruz RN) Above information forwarded to Desiree Mayo (11/07/22 1030 : Abigail Cruz RN) for final review and interpretation. SIGNATURE: Abigail Cruz RN PATIENT NAME: Keshia Silverman DATE: November 07, 2022 TIME: 11:44 [facility]09-16-2023 NoteHNO ID: [id number] Author: Emma Wiley MD Service: Obstetrics Author Type: Resident Type: Progress Notes Filed: 11/07/2022 8:30 AM Note Text: Attestation signed by Desiree Mayo MD at 11/07/2022 6:12 PM Maternal- Medicine Staff Note I saw and evaluated the patient. I personally obtained the marcus and critical portions of the history and physical exam. I reviewed the resident?s documentation and discussed the patient with the resident. I agree with the resident. I agree with the resident?s medical decision making as documented in the resident?s note. 22 year old at 27w0d with mono di twins admitted for labor, painful contractions with cervical change. Greatly improved this am. Having some pelvic pressure. No bleeding or leaking. Requests repeat exam. Reviewed challenges in predicting when labor will occur. S/p steroids. Had a course of mag for neuro protection. Would repeat if delivery is imminent given likely clearance by now but patient did not tolerated bolus, could give more slowly or could opt for 4g/1g dose that has been studies. Noted to have significant anemia on admission so iron/b12 studies requested and deficient in both. No symptoms of anemia. Recommend IV iron 200mg daily x 5 days. Recommend b12 1000mcg po daily. If delivering, recommend transfusion 1 unit prbc at that time if hemoglobin is under 8. Recommend type and cross. Do not recommend prophylactic transfusion at this time given short half life of transfused rbc and preference to optimize her nutritionally first. Consider nutrition consultation. Daily NSTS or continuous monitoring for clinical changes or concerns. Encourage scd usage. Desiree Mayo MD OBSTETRICS ANTEPARTUM PROGRESS NOTE SERVICE DATE: 11/07/2022 SERVICE TIME: 8:27 AM Assessment AND Plan : 22 year old EGA:27w0d admitted for contractions . Plan of care discussed with: Provider, RN, Patient. Principal Problem: Active Hospital Problems Diagnosis Date Noted Threatened labor, third trimester 11/05/2022 -Regular contractions on the monitor -GBS negative -Recently treated for yeast infection -Started treatment for BV on Wednesday -Continue 7 days treatment -Will start indomethacin for the steroid window labor without delivery, second trimester 11/05/2022 Short cervix during in second trimester 11/05/2022 History of delivery, currently in second trimester 11/05/2022 Short interval between pregnancies affecting in third trimester, antepartum 11/04/2022 -Last delivery 11/14/21 26 weeks gestation of 11/04/2022 - consult placed -BMZ #1 given in [place], repeat in 24 hours -s/p Magnesium for neuroprotection -GBS negative -Daily NSTs Monochorionic diamniotic twin gestation 07/10/2022 -Following with MFM in [place] -Has been getting ultrasounds for TTTS including umbilical artery dopplers every 2 weeks starting at 16 weeks - Growth ultrasound every 4 weeks - MCA Dopplers every 2 weeks starting at 26 weeks -Plan for weekly BPP at 32 weeks History of prior with IUGR 07/09/2022 -Patient has a history of IUGR with her last -Recent growth US @ 25w5d -EFW A 31% -EFW B 23% Request for sterilization 09/18/2021 -Patient states she was planning to have a tubal ligation before she found out she was . -Desires P PTL -Medicaid consent form signed on admission 11/05/22 History of delivery, currently 04/29/2021 -History of delivery with her last 2 deliveries -Her first child was born at term, second at 36w3d, third at 36w0d -Had cervical length screening in 2nd trimester with a shortened length of 2.4cm -Has been taking vaginal progesterone nightly History of depression and anxiety 01/25/2020 -Pt has a history of depression diagnosed after the of her first child. She did have counseling with [employer] [facility] [employer]. She has a history of anxiety after the of her last child. -Mood stable at this time Family history of congenital heart defect 01/25/2020 -FOB's grandmother with history of VSD that was repaired History of seizures -Saw cardio and neuro in 2017. See workup in care everywhere. Negative EEG and CT head. Likely related to vasovagal syncope. Not placed on any seizure medications and does not follow with neuro. Last seizure in 2017. Subjective : No current vaginal bleeding, No current leaking of fluid, No contractions, Good movement, No shortness of breath or chest pain, and No calf tenderness. Pt feels well. No concerns or complaints. Objective : LAST VITALS: Pulse BP Resp O2 Sat (more content not included)...[facility] 11-07-2022 NoteHNO ID: [id number] Author: Note, Interface Service: ? Author Type: ? Type: Progress Notes Filed: 11/07/2022 5:01 AM Note Text: Epic Scheduled Downtime: 11/07/2022 1:00:00 AM to 11/07/2022 4:45:[facility] NoteHNO ID: [id number] Author: Emma Wiley MD Service: Obstetrics Author Type: Resident Type: Progress Notes Filed: 11/06/2022 6:45 AM Note Text: Attestation signed by Hira Yu DO at 11/06/2022 10:44 PM MFM Attending Note I saw and evaluated the patient. I agree with the resident's findings and plan of care as documented below. Patient with increasing CTX and pain overnight. Advanced cervical dilation to 4 cm. Keshia received her epidural. Indocin was started. Subsequent cervical dilation was unchanged. Contractions resolved. Ok to D/C magnesium sulfate and epidural. Plan for NST daily. Ok for regular diet today. Keshia was counseled on inpatient admission at least through the weekend given early GA and history of PTB. S/P BMZ. NICU consult complete. Continue metronidazole for BV. All of her questions were answered. Hira Yu DO, MPH 11/06/2022 10:41 PM OBSTETRICS ANTEPARTUM PROGRESS NOTE SERVICE DATE: 11/06/2022 SERVICE TIME: 6:41 AM Assessment AND Plan : 22 year old EGA:26w6d admitted for labor . Plan of care discussed with: Provider, RN, Patient. Principal Problem: Active Hospital Problems Diagnosis Date Noted Threatened labor, third trimester 11/05/2022 -Regular contractions on the monitor -GBS swab collected, started on ancef due to PCN allergy -Recently treated for yeast infection -Started treatment for BV on Wednesday -Continue 7 days treatment -Will start indomethacin for the steroid window labor without delivery, second trimester 11/05/2022 Short cervix during in second trimester 11/05/2022 History of delivery, currently in second trimester 11/05/2022 Short interval between pregnancies affecting in third trimester, antepartum 11/04/2022 -Last delivery 11/14/21 26 weeks gestation of 11/04/2022 - consult placed -BMZ #1 given in [place], repeat in 24 hours -Magnesium for neuroprotection initiated -Ancef for GBS unknown Monochorionic diamniotic twin gestation 07/10/2022 -Following with MFM in [place] -Has been getting ultrasounds for TTTS including umbilical artery dopplers every 2 weeks starting at 16 weeks - Growth ultrasound every 4 weeks - MCA Dopplers every 2 weeks starting at 26 weeks -Plan for weekly BPP at 32 weeks History of prior with IUGR 07/09/2022 -Patient has a history of IUGR with her last -Recent growth US @ 25w5d -EFW A 31% -EFW B 23% Request for sterilization 09/18/2021 -Patient states she was planning to have a tubal ligation before she found out she was . -Desires P PTL -Medicaid consent form signed on admission 11/05/22 History of delivery, currently 04/29/2021 -History of delivery with her last 2 deliveries -Her first child was born at term, second at 36w3d, third at 36w0d -Had cervical length screening in 2nd trimester with a shortened length of 2.4cm -Has been taking vaginal progesterone nightly History of depression and anxiety 01/25/2020 -Pt has a history of depression diagnosed after the of her first child. She did have counseling with [employer] [facility] [employer]. She has a history of anxiety after the of her last child. -Mood stable at this time Family history of congenital heart defect 01/25/2020 -FOB's grandmother with history of VSD that was repaired History of seizures -Saw cardio and neuro in 2017. See workup in care everywhere. Negative EEG and CT head. Likely related to vasovagal syncope. Not placed on any seizure medications and does not follow with neuro. Last seizure in 2017. Subjective : No current vaginal bleeding, No current leaking of fluid, Good movement, No shortness of breath or chest pain, No calf tenderness, and has an epidural in place. Occasionally feels contractions and pressure. Objective : LAST VITALS: Pulse BP Resp O2 Sat Temp Pain 83 (!) 91/42 16 96 % 36.6 ?C (97.9 ?F) 0 PHYSICAL EXAM: General: WD, WN, NAD, comfortable Heart: RR Lungs: normal respiratory effort Abdomen: soft, nontender, gravid Uterus: soft, NT Extremities: no edema, warm MONITORING/ASSESSMENT: Continuous monitoring LABS Diagnostic tests reviewed for today's visit: Most recent labs and imaging results. SIGNATURE: Emma Wiley MD PATIENT NAME: Keshia Silverman DATE: November 06, 2022 TIME: 6:41 [facility]09-14-2023 NoteHNO ID: [id number] Author: Milagros Walker APRN.[employer]ICE OFFICER Service: Anesthesiology Author Type: Nurse Special Agent Type: Anesthesia Procedure Notes Filed: 11/05/2022 9:36 PM Note Text: ANESTHESIOLOGY PROCEDURE NOTE Epidural Block General Information Procedure Start Time/Medication Administration: 11/05/2022 9:25 PM Patient location during procedure: [facility] room Timeout Performed Pre-procedure: timeout performed Consent Obtained: Yes Patient identity confirmed: arm band and patient Reason for block: labor epidural Staffing [employer] POLICE OFFICER: Milagros Walker APRN.[employer]ICE OFFICER Performed by: [employer] POLICE OFFICER Preparation Sterility Preparation: hand hygiene performed prior to procedure, sterile gloves, drapes, and procedure tray, surgical cap used, mask used, sterile drape used during line insertion, skin prep agent completely dried prior to procedure Site Prep: Betadine Procedure Details Patient position: sitting Ultrasound Guided: No Patient monitoring: Pulse OX and NIBP Approach: midline Injection technique: AMY saline Region: lumbar Estimated Interspace: 3-4 Number of Attempts: 1 Needle and Epidural Catheter Needle type: Tuohy Needle gauge: 18 G Needle length: 3.5 in Needle insertion depth: 5 cm Catheter Catheter type: side hole Catheter size: 19 G Catheter at skin depth: 10 cmTest Dose Response: negative Assessment Sensory level: T10 Beginning Pain Score: 7/10 Pain Score After Treatment: 0/10 Events: tolerated well without discomfort SIGNATURE: Milagros Walker APRN.CRNA PATIENT NAME: Keshia Silverman DATE: November 05, 2022 TIME: 9:35 PM [id number] NoteHNO ID: [id number] Author: Yuliana Arcos MD Service: Obstetrics Author Type: Resident Type: Progress Notes Filed: 11/05/2022 8:34 PM Note Text: Called to bedside given increasing patient discomfort with contractions, now 7/10 discomfort and more intense pain/pelvic pressure. SVE repeated, - unchanged cervical dilation however descent of station. She is considering epidural though will start with Tylenol 1000mg now x1. Reviewed with Dr. Munoz. Will plan to continue given absence of cervical dilation on this exam. If further cervical dilation, will plan to proceed with section. Both Baby A and Baby B continue to be Category I and reactive. Yuliana Arcos MD MEDICAL OPERATIONS SUPERVISOR PGY-2 November 05, 2022 8:28 [facility]09-14-2023 NoteHNO ID: [id number] Author: Yuliana Arcos MD Service: Obstetrics Author Type: Resident Type: Progress Notes Filed: 11/05/2022 8:27 PM Note Text: Back in room to assist nursing with tracing babies on TOCO. heart rates confirmed of Baby A and Baby B, appropriate with M mode doptone obtained 130bpm. Both babies able to be placed on CEFM with ultrasound assistance. SVE performed, /-2 on my exam, increased from prior. Dr. Munoz, Dr. Wadr present for bedside discussion. Reviewed if further progression of cervical dilation, would recommend delivery by section given transverse presentation of Baby B and prematurity to 26 weeks and discordant AC/HC. Yuliana Arcos MD MEDICAL OPERATIONS SUPERVISOR PGY-2 November 05, 2022 06:40 [facility]09-14-2023 NoteHNO ID: [id number] Author: Yuliana Arcos MD Service: Obstetrics Author Type: Resident Type: Progress Notes Filed: 11/05/2022 6:30 PM Note Text: In to evaluate given concern for Baby B with broken deceleration to 60-70 bpm versus maternal heart rate. Difficulty getting Baby B on TOCO, therefore ultrasound brought to bedside. heart rate confirmed 130bpm, and tracing maternal with broken deceleration. Dr. Munoz also at bedside, visualized normal cardiac activity. Yuliana Arcos MD MEDICAL OPERATIONS SUPERVISOR PGY-2 November 05, 2022 6:30 [facility]09-14-2023 NoteHNO ID: [id number] Author: oJe Brock, RN Service: Nursing Author Type: Registered Nurse Type: Nursing Progress Note Filed: 11/05/2022 8:49 PM Note Text: Patient gave verbal consent for twins to receive erythromycin and vit k after .[facility]09[facility]14[facility] History of Past illness Narrative* Problem Noted Date Diagnosed Date Resolved Date Threatened labor, third trimester 11/05/2022 11/08/2022 History of delivery, currently in second trimester 11/05/2022 11/08/2022 Abdominal pain affecting 11/04/2022 11/05/2022 Overview: - reporting contractions overnight, resolved in VIKASH - good movement, no vaginal bleeding or leakage of fluid - taking flagyl for bacterial vaginosis - urine dip negative for UTI - monitored x2 hours, no contractions during that time - patient comfortable with discharge at this time - given strict return precautions for labor, decreased movement, leakage of fluid, or vaginal bleeding - follow up for routine care in one week as scheduled Poor growth affecting management of mother in third trimester 08/21/2021 07/10/2022 Overview: EFW 6% at 34 weeks. Weekly BPP's. Delivery 38-39 weeks. 08/21/21- 23.6 weeks gestation. Measuring 3 weeks behind- will continue to monitor. Pam Yarbrough APRN.CNM Subchorionic hematoma in first trimester 05/09/2021 07/10/2022 Overview: 05/09/21- visualized on TAUS. Pam Yarbrough APRN.CNM Supervision of other high ri sk pregnancies, second trimester 04/29/2021 11/05/2022 Overview: 07/09/2022atient delivered her previous child on November 14, 2021. TKRN on oral contraceptive 04/29/2021 07/10/2022 Overview: 04/29/2021This is an unplanned . Patient was on control pills. She states I am nervous about the because having 3 children is a lot. She plans on keeping the baby. Father of the baby is involved. He is the father of her other children. TKRN Elevated glucose 06/21/2020 05/01/2021 Overview: 06/27/20- 3 hour GTT normal. Pam Yarbrough APRN.CNM 06/21/20- Elevated 1 hour at 151. 3 hour ordered. aPm Yarbrough APRN.CNM Nausea and vomiting in 01/25/2020 11/05/2022 Overview: 07/09/2022atient was seen at [facility] on June 29 for nausea and vomiting. Currently taking Zofran and this is helping to relieve her symptoms.Dietary considerations discussed . Advised patient to call/come in if she is unable to keep any food or fluids down in a 24-hour period. TKRN History of hypotension 01/25/202005/01 Overview: 02/02/2020 Pt has followed up with PCP. Instructed to increase salt intake. 01/25/2020Patient was seen by Dr Carlos 01/11 to discuss medications for low blood pressure. She states she was having syncope from low blood pressure. TKRN Patient request for diagnostic testing 01/25/2020 11/05/2022 Overview: 07/09/2022 Patient desires nuchal ultrasound with sequential testing. Declines NIPT. Patient declines genetic carrier screening testing TKRN Uterine size-date discrepanc y, third trimester 04/19/2018 02/02/2020 Overview: 04/19/18-Growth U/S at 31w6d, AGA, BRIANNA 12.8, 21st percentile. Will continue to watch fundal height. Consider growth U/S closer to 39 weeks. Alejandra Perdomo APRN.CNM Encounter for supervision of normal in teen primigravida, antepartum 04/05/2018/11/23 021 Syncope 11/05/2022 Overview: 04/05/18 Has h/o vasovagal syncope. See care everywhere. SW documented as of this encounter (statuses as of 11/10/2022) [facility]09-14-2023 History of Past illness Narrative* Problem Noted Date Diagnosed Date Resolved Date Threatened labor, third trimester 11/05/2022 11/08/2022 History of delivery, currently in second trimester 11/05/2022 11/08/2022 Abdominal pain affecting 11/04/2022 11/05/2022 Overview: - reporting contractions overnight, resolved in VIKASH - good movement, no vaginal bleeding or leakage of fluid - taking flagyl for bacterial vaginosis - urine dip negative for UTI - monitored x2 hours, no contractions during that time - patient comfortable with discharge at this time - given strict return precautions for labor, decreased movement, leakage of fluid, or vaginal bleeding - follow up for routine care in one week as scheduled Poor growth affecting management of mother in third trimester 08/21/2021 07/10/2022 Overview: EFW 6% at 34 weeks. Weekly BPP's. Delivery 38-39 weeks. SW 08/21/21- 23.6 weeks gestation. Measuring 3 weeks behind- will continue to monitor. Pam Yarbrough APRN.CNM Subchorionic hematoma in first trimester 05/09/2021 07/10/2022 Overview: 05/09/21- visualized on TAUS. Pam Yarbrough APRN.CNM Supervision of other high ri sk pregnancies, second trimester 04/29/2021 11/05/2022 Overview: 07/09/2022atient delivered her previous child on November 14, 2021. TKRN on oral contraceptive 04/29/2021 07/10/2022 Overview: 04/29/2021This is an unplanned . Patient was on control pills. She states I am nervous about the because having 3 children is a lot. She plans on keeping the baby. Father of the baby is involved. He is the father of her other children. TKRN Elevated glucose 06/21/2020 05/01/2021 Overview: 06/27/20- 3 hour GTT normal. Pam Yarbrough APRN.CNM 06/21/20- Elevated 1 hour at 151. 3 hour ordered. Pam Yarbrough APRN.CNM Nausea and vomiting in 01/25/2020 11/05/2022 Overview: 07/09/2022atient was seen at [facility] on June 29 for nausea and vomiting. Currently taking Zofran and this is helping to relieve her symptoms.Dietary considerations discussed . Advised patient to call/come in if she is unable to keep any food or fluids down in a 24-hour period. TKRN History of hypotension 01/25/202005/01 Overview: 02/02/2020 Pt has followed up with PCP. Instructed to increase salt intake. 01/25/2020Patient was seen by Dr Carlos 01/11 to discuss medications for low blood pressure. She states she was having syncope from low blood pressure. TKRN Patient request for diagnostic testing 01/25/2020 11/05/2022 Overview: 07/09/2022 Patient desires nuchal ultrasound with sequential testing. Declines NIPT. Patient declines genetic carrier screening testing TKRN Uterine size-date discrepanc y, third trimester 04/19/2018 02/02/2020 Overview: 04/19/18-Growth U/S at 31w6d, AGA, BRIANNA 12.8, 21st percentile. Will continue to watch fundal height. Consider growth U/S closer to 39 weeks. Alejandra Perdomo APRN.CNM Encounter for supervision of normal in teen primigravida, antepartum 04/05/2018 021 Syncope 11/05/2022 Overview: 04/05/18 Has h/o vasovagal syncope. See care everywhere. SW documented as of this encounter (statuses as of 11/10/2022) [facility]09-14-2023 History of Past illness Narrative* Problem Noted Date Diagnosed Date Resolved Date Threatened labor, third trimester 11/05/2022 11/08/2022 History of delivery, currently in second trimester 11/05/2022 11/08/2022 Abdominal pain affecting 11/04/2022 11/05/2022 Overview: - reporting contractions overnight, resolved in VIKASH - good movement, no vaginal bleeding or leakage of fluid - taking flagyl for bacterial vaginosis - urine dip negative for UTI - monitored x2 hours, no contractions during that time - patient comfortable with discharge at this time - given strict return precautions for labor, decreased movement, leakage of fluid, or vaginal bleeding - follow up for routine care in one week as scheduled Poor growth affecting management of mother in third trimester 08/21/2021 07/10/2022 Overview: EFW 6% at 34 weeks. Weekly BPP's. Delivery 38-39 weeks. SW 08/21/21- 23.6 weeks gestation. Measuring 3 weeks behind- will continue to monitor. Pam Yarbrough APRN.CNM Subchorionic hematoma in first trimester 05/09/2021 07/10/2022 Overview: 05/09/21- visualized on TAUS. Pam Yarbrough APRN.CNM Supervision of other high ri sk pregnancies, second trimester 04/29/2021 11/05/2022 Overview: 07/09/2022atient delivered her previous child on November 14, 2021. TKRN on oral contraceptive 04/29/2021 07/10/2022 Overview: 04/29/2021This is an unplanned . Patient was on control pills. She states I am nervous about the because having 3 children is a lot. She plans on keeping the baby. Father of the baby is involved. He is the father of her other children. TKRN Elevated glucose 06/21/2020 05/01/2021 Overview: 06/27/20- 3 hour GTT normal. Pam Yarbrough APRN.CNM 06/21/20- Elevated 1 hour at 151. 3 hour ordered. Pam Yarbrough APRN.CNM Nausea and vomiting in 01/25/2020 11/05/2022 Overview: 07/09/2022atient was seen at [facility] on June 29 for nausea and vomiting. Currently taking Zofran and this is helping to relieve her symptoms.Dietary considerations discussed . Advised patient to call/come in if she is unable to keep any food or fluids down in a 24-hour period. TKRN History of hypotension 01/25/202005/01 Overview: 02/02/2020 Pt has followed up with PCP. Instructed to increase salt intake. SW 01/25/2020Patient was seen by Dr Carlos 01/11 to discuss medications for low blood pressure. She states she was having syncope from low blood pressure. TKRN Patient request for diagnostic testing 01/25/2020 11/05/2022 Overview: 07/09/2022 Patient desires nuchal ultrasound with sequential testing. Declines NIPT. Patient declines genetic carrier screening testing TKRN Uterine size-date discrepanc y, third trimester 04/19/2018 02/02/2020 Overview: 04/19/18-Growth U/S at 31w6d, AGA, BRIANNA 12.8, 21st percentile. Will continue to watch fundal height. Consider growth U/S closer to 39 weeks. Alejandra Perdomo APRN.CNM Encounter for supervision of normal in teen primigravida, antepartum 04/05/2018 021 Syncope 11/05/2022 Overview: 04/05/18 Has h/o vasovagal syncope. See care everywhere. SW documented as of this encounter (statuses as of 11/10/2022) [facility]09-14-2023 History of Past illness Narrative* Problem Noted Date Diagnosed Date Resolved Date Threatened labor, third trimester 11/05/2022 11/08/2022 History of delivery, currently in second trimester 11/05/2022 11/08/2022 Abdominal pain affecting 11/04/2022 11/05/2022 Overview: - reporting contractions overnight, resolved in VIKASH - good movement, no vaginal bleeding or leakage of fluid - taking flagyl for bacterial vaginosis - urine dip negative for UTI - monitored x2 hours, no contractions during that time - patient comfortable with discharge at this time - given strict return precautions for labor, decreased movement, leakage of fluid, or vaginal bleeding - follow up for routine care in one week as scheduled Poor growth affecting management of mother in third trimester 08/21/2021 07/10/2022 Overview: EFW 6% at 34 weeks. Weekly BPP's. Delivery 38-39 weeks. SW 08/21/21- 23.6 weeks gestation. Measuring 3 weeks behind- will continue to monitor. Pam Yarbrough APRN.CNM Subchorionic hematoma in first trimester 05/09/2021 07/10/2022 Overview: 05/09/21- visualized on TAUS. Pam Yarbrough APRN.CNM Supervision of other high ri sk pregnancies, second trimester 04/29/2021 11/05/2022 Overview: 07/09/2022atient delivered her previous child on November 14, 2021. TKRN on oral contraceptive 04/29/2021 07/10/2022 Overview: 04/29/2021This is an unplanned . Patient was on control pills. She states I am nervous about the because having 3 children is a lot. She plans on keeping the baby. Father of the baby is involved. He is the father of her other children. TKRN Elevated glucose 06/21/2020 05/01/2021 Overview: 06/27/20- 3 hour GTT normal. Pam Yarbrough APRN.CNM 06/21/20- Elevated 1 hour at 151. 3 hour ordered. Pam Yarbrough APRN.CNM Nausea and vomiting in 01/25/2020 11/05/2022 Overview: 07/09/2022atient was seen at [facility] on June 29 for nausea and vomiting. Currently taking Zofran and this is helping to relieve her symptoms.Dietary considerations discussed . Advised patient to call/come in if she is unable to keep any food or fluids down in a 24-hour period. TKRN History of hypotension 01/25/202005/01 Overview: 02/02/2020 Pt has followed up with PCP. Instructed to increase salt intake. SW 01/25/2020Patient was seen by Dr Carlos 01/11 to discuss medications for low blood pressure. She states she was having syncope from low blood pressure. TKRN Patient request for diagnostic testing 01/25/2020 11/05/2022 Overview: 07/09/2022 Patient desires nuchal ultrasound with sequential testing. Declines NIPT. Patient declines genetic carrier screening testing TKRN Uterine size-date discrepanc y, third trimester 04/19/2018 02/02/2020 Overview: 04/19/18-Growth U/S at 31w6d, AGA, BRIANNA 12.8, 21st percentile. Will continue to watch fundal height. Consider growth U/S closer to 39 weeks. Alejandra Perdomo APRN.CNM Encounter for supervision of normal in teen primigravida, antepartum 04/05/2018 021 Syncope 11/05/2022 Overview: 04/05/18 Has h/o vasovagal syncope. See care everywhere. SW documented as of this encounter (statuses as of 11/12/2022) [facility]09-14-2023 History of Past illness Narrative* Problem Noted Date Diagnosed Date Resolved Date Threatened labor, third trimester 11/05/2022 11/08/2022 History of delivery, currently in second trimester 11/05/2022 11/08/2022 Abdominal pain affecting 11/04/2022 11/05/2022 Overview: - reporting contractions overnight, resolved in VIKASH - good movement, no vaginal bleeding or leakage of fluid - taking flagyl for bacterial vaginosis - urine dip negative for UTI - monitored x2 hours, no contractions during that time - patient comfortable with discharge at this time - given strict return precautions for labor, decreased movement, leakage of fluid, or vaginal bleeding - follow up for routine care in one week as scheduled Poor growth affecting management of mother in third trimester 08/21/2021 07/10/2022 Overview: EFW 6% at 34 weeks. Weekly BPP's. Delivery 38-39 weeks. SW 08/21/21- 23.6 weeks gestation. Measuring 3 weeks behind- will continue to monitor. Pam Yarbrough APRN.CNM Subchorionic hematoma in first trimester 05/09/2021 07/10/2022 Overview: 05/09/21- visualized on TAUS. Pam Yarrbough APRN.CNM Supervision of other high ri sk pregnancies, second trimester 04/29/2021 11/05/2022 Overview: 07/09/2022atient delivered her previous child on November 14, 2021. TKRN on oral contraceptive 04/29/2021 07/10/2022 Overview: 04/29/2021This is an unplanned . Patient was on control pills. She states I am nervous about the because having 3 children is a lot. She plans on keeping the baby. Father of the baby is involved. He is the father of her other children. TKRN Elevated glucose 06/21/2020 05/01/2021 Overview: 06/27/20- 3 hour GTT normal. Pam Yarbrough APRN.CNM 06/21/20- Elevated 1 hour at 151. 3 hour ordered. Pam Yarbrough APRN.CNM Nausea and vomiting in 01/25/2020 11/05/2022 Overview: 07/09/2022atient was seen at [facility] on June 29 for nausea and vomiting. Currently taking Zofran and this is helping to relieve her symptoms.Dietary considerations discussed . Advised patient to call/come in if she is unable to keep any food or fluids down in a 24-hour period. TKRN History of hypotension 01/25/202005/01 Overview: 02/02/2020 Pt has followed up with PCP. Instructed to increase salt intake. SW 01/25/2020Patient was seen by Dr Carlos 01/11 to discuss medications for low blood pressure. She states she was having syncope from low blood pressure. TKRN Patient request for diagnostic testing 01/25/2020 11/05/2022 Overview: 07/09/2022 Patient desires nuchal ultrasound with sequential testing. Declines NIPT. Patient declines genetic carrier screening testing TKRN Uterine size-date discrepanc y, third trimester 04/19/2018 02/02/2020 Overview: 04/19/18-Growth U/S at 31w6d, AGA, BRIANNA 12.8, 21st percentile. Will continue to watch fundal height. Consider growth U/S closer to 39 weeks. Alejandra Pedromo APRN.CNM Encounter for supervision of normal in teen primigravida, antepartum 04/05/2018 021 Syncope 11/05/2022 Overview: 04/05/18 Has h/o vasovagal syncope. See care everywhere. SW documented as of this encounter (statuses as of 11/13/2022) [facility]09-14-2023 History of Past illness Narrative* Problem Noted Date Diagnosed Date Resolved Date Threatened labor, third trimester 11/05/2022 11/08/2022 History of delivery, currently in second trimester 11/05/2022 11/08/2022 Abdominal pain affecting 11/04/2022 11/05/2022 Overview: - reporting contractions overnight, resolved in VIKASH - good movement, no vaginal bleeding or leakage of fluid - taking flagyl for bacterial vaginosis - urine dip negative for UTI - monitored x2 hours, no contractions during that time - patient comfortable with discharge at this time - given strict return precautions for labor, decreased movement, leakage of fluid, or vaginal bleeding - follow up for routine care in one week as scheduled Poor growth affecting management of mother in third trimester 08/21/2021 07/10/2022 Overview: EFW 6% at 34 weeks. Weekly BPP's. Delivery 38-39 weeks. SW 08/21/21- 23.6 weeks gestation. Measuring 3 weeks behind- will continue to monitor. Pam Yarbrough APRN.CNM Subchorionic hematoma in first trimester 05/09/2021 07/10/2022 Overview: 05/09/21- visualized on TAUS. Pam Yarbrough APRN.CNM Supervision of other high ri sk pregnancies, second trimester 04/29/2021 11/05/2022 Overview: 07/09/2022atient delivered her previous child on November 14, 2021. TKRN on oral contraceptive 04/29/2021 07/10/2022 Overview: 04/29/2021This is an unplanned . Patient was on control pills. She states I am nervous about the because having 3 children is a lot. She plans on keeping the baby. Father of the baby is involved. He is the father of her other children. TKRN Elevated glucose 06/21/2020 05/01/2021 Overview: 06/27/20- 3 hour GTT normal. Pam Yarbrough APRN.CNM 06/21/20- Elevated 1 hour at 151. 3 hour ordered. Pam Yarbrough APRN.CNM Nausea and vomiting in 01/25/2020 11/05/2022 Overview: 07/09/2022atient was seen at [facility] on June 29 for nausea and vomiting. Currently taking Zofran and this is helping to relieve her symptoms.Dietary considerations discussed . Advised patient to call/come in if she is unable to keep any food or fluids down in a 24-hour period. TKRN History of hypotension 01/25/202005/01 Overview: 02/02/2020 Pt has followed up with PCP. Instructed to increase salt intake. SW 01/25/2020Patient was seen by Dr Carlos 01/11 to discuss medications for low blood pressure. She states she was having syncope from low blood pressure. TKRN Patient request for diagnostic testing 01/25/2020 11/05/2022 Overview: 07/09/2022 Patient desires nuchal ultrasound with sequential testing. Declines NIPT. Patient declines genetic carrier screening testing TKRN Uterine size-date discrepanc y, third trimester 04/19/2018 02/02/2020 Overview: 04/19/18-Growth U/S at 31w6d, AGA, BRIANNA 12.8, 21st percentile. Will continue to watch fundal height. Consider growth U/S closer to 39 weeks. Alejandra Perdomo APRN.CNM Encounter for supervision of normal in teen primigravida, antepartum 04/05/2018 021 Syncope 11/05/2022 Overview: 04/05/18 Has h/o vasovagal syncope. See care everywhere. SW documented as of this encounter (statuses as of 11/13/2022) [facility]09-14-2023 History of Past illness Narrative* Problem Noted Date Diagnosed Date Resolved Date Threatened labor, third trimester 11/05/2022 11/08/2022 History of delivery, currently in second trimester 11/05/2022 11/08/2022 Abdominal pain affecting 11/04/2022 11/05/2022 Overview: - reporting contractions overnight, resolved in VIKASH - good movement, no vaginal bleeding or leakage of fluid - taking flagyl for bacterial vaginosis - urine dip negative for UTI - monitored x2 hours, no contractions during that time - patient comfortable with discharge at this time - given strict return precautions for labor, decreased movement, leakage of fluid, or vaginal bleeding - follow up for routine care in one week as scheduled Poor growth affecting management of mother in third trimester 08/21/2021 07/10/2022 Overview: EFW 6% at 34 weeks. Weekly BPP's. Delivery 38-39 weeks. SW 08/21/21- 23.6 weeks gestation. Measuring 3 weeks behind- will continue to monitor. Pam Yarbrough APRN.CNM Subchorionic hematoma in first trimester 05/09/2021 07/10/2022 Overview: 05/09/21- visualized on TAUS. Pam Yarbrough APRN.CNM Supervision of other high ri sk pregnancies, second trimester 04/29/2021 11/05/2022 Overview: 07/09/2022atient delivered her previous child on November 14, 2021. TKRN on oral contraceptive 04/29/2021 07/10/2022 Overview: 04/29/2021This is an unplanned . Patient was on control pills. She states I am nervous about the because having 3 children is a lot. She plans on keeping the baby. Father of the baby is involved. He is the father of her other children. TKRN Elevated glucose 06/21/2020 05/01/2021 Overview: 06/27/20- 3 hour GTT normal. Pam Yarbrough APRN.CNM 06/21/20- Elevated 1 hour at 151. 3 hour ordered. Pam Yarbrough APRN.CNM Nausea and vomiting in 01/25/2020 11/05/2022 Overview: 07/09/2022atient was seen at [facility] on June 29 for nausea and vomiting. Currently taking Zofran and this is helping to relieve her symptoms.Dietary considerations discussed . Advised patient to call/come in if she is unable to keep any food or fluids down in a 24-hour period. TKRN History of hypotension 01/25/202005/01 Overview: 02/02/2020 Pt has followed up with PCP. Instructed to increase salt intake. SW 01/25/2020Patient was seen by Dr Carlos 01/11 to discuss medications for low blood pressure. She states she was having syncope from low blood pressure. TKRN Patient request for diagnostic testing 01/25/2020 11/05/2022 Overview: 07/09/2022 Patient desires nuchal ultrasound with sequential testing. Declines NIPT. Patient declines genetic carrier screening testing TKRN Uterine size-date discrepanc y, third trimester 04/19/2018 02/02/2020 Overview: 04/19/18-Growth U/S at 31w6d, AGA, BRIANNA 12.8, 21st percentile. Will continue to watch fundal height. Consider growth U/S closer to 39 weeks. Alejandra Perdomo APRN.CNM Encounter for supervision of normal in teen primigravida, antepartum 04/05/2018 021 Syncope 11/05/2022 Overview: 04/05/18 Has h/o vasovagal syncope. See care everywhere. SW documented as of this encounter (statuses as of 11/27/2022) [facility]09-14-2023 History of Past illness Narrative* Problem Noted Date Diagnosed Date Resolved Date Threatened labor, third trimester 11/05/2022 11/08/2022 History of delivery, currently in second trimester 11/05/2022 11/08/2022 Abdominal pain affecting 11/04/2022 11/05/2022 Overview: - reporting contractions overnight, resolved in [facility] - good movement, no vaginal bleeding or leakage of fluid - taking flagyl for bacterial vaginosis - urine dip negative for UTI - monitored x2 hours, no contractions during that time - patient comfortable with discharge at this time - given strict return precautions for labor, decreased movement, leakage of fluid, or vaginal bleeding - follow up for routine care in one week as scheduled Poor growth affecting management of mother in third trimester 08/21/2021 07/10/2022 Overview: EFW 6% at 34 weeks. Weekly BPP's. Delivery 38-39 weeks. SW 08/21/21- 23.6 weeks gestation. Measuring 3 weeks behind- will continue to monitor. Pam Yarbrough APRN.CNM Subchorionic hematoma in first trimester 05/09/2021 07/10/2022 Overview: 05/09/21- visualized on TAUS. Pam Yarbrough APRN.CNM Supervision of other high ri sk pregnancies, second trimester 04/29/2021 11/05/2022 Overview: 3[place]atiarleth delivered her previous child on November 14, 2021. TKRN on oral contraceptive 04/29/2021 07/10/2022 Overview: 04/29/2021This is an unplanned . Patient was on control pills. She states I am nervous about the because having 3 children is a lot. She plans on keeping the baby. Father of the baby is involved. He is the father of her other children. TKRN Elevated glucose 06/21/2020 05/01/2021 Overview: 06/27/20- 3 hour GTT normal. Pam Yarbrough APRN.CNM 06/21/20- Elevated 1 hour at 151. 3 hour ordered. Pam Yarbrough APRN.CNM Nausea and vomiting in 01/25/2020 11/05/2022 Overview: 3Patient was seen at [facility] on June 29 for nausea and vomiting. Currently taking Zofran and this is helping to relieve her symptoms.Dietary considerations discussed . Advised patient to call/come in if she is unable to keep any food or fluids down in a 24-hour period. TKRN History of hypotension 01/25/202005/01 Overview: 02/02/2020 Pt has followed up with PCP. Instructed to increase salt intake. SW 01/25/2020Patient was seen by Dr Carlso 01/11 to discuss medications for low blood pressure. She states she was having syncope from low blood pressure. TKRN Patient request for diagnostic testing 01/25/2020 11/05/2022 Overview: 07/09/2022 Patient desires nuchal ultrasound with sequential testing. Declines NIPT. Patient declines genetic carrier screening testing TKRN Uterine size-date discrepanc y, third trimester 04/19/2018 02/02/2020 Overview: 04/19/18-Growth U/S at 31w6d, AGA, BRIANNA 12.8, 21st percentile. Will continue to watch fundal height. Consider growth U/S closer to 39 weeks. Alejandra Perdomo APRN.CNM Encounter for supervision of normal in teen primigravida, antepartum 04/05/2018 021 Syncope 11/05/2022 Overview: 04/05/18 Has h/o vasovagal syncope. See care everywhere. SW documented as of this encounter (statuses as of 11/28/2022) [facility]09-14[facility] History of Past illness Narrative* Problem Noted Date Diagnosed Date Resolved Date Threatened labor, third trimester 11/05/2022 11/08/2022 labor without delive ry, second trimester 11/05/2022 11/30/2022 Overview: -Patient with painful uterine contractions and had cervical dilation/made change while being evaluated in the OB ED -s/p epidural for pain control Short cervix during pregnanc y in second trimester 11/05/2022 11/30/2022 History of delivery, currently in second trimester 11/05/2022 11/08/2022 Abdominal pain affecting 11/04/2022 11/05/2022 Overview: - reporting contractions overnight, resolved in [facility] - good movement, no vaginal bleeding or leakage of fluid - taking flagyl for bacterial vaginosis - urine dip negative for UTI - monitored x2 hours, no contractions during that time - patient comfortable with discharge at this time - given strict return precautions for labor, decreased movement, leakage of fluid, or vaginal bleeding - follow up for routine care in one week as scheduled Short interval between pregn ancies affecting in third trimester, antepartum 11/04/2022 11/30/2022 Overview: -Last delivery 11/14/21 27 weeks gestation of 11/04/2022 11/30/2022 Overview: - consult placed -Betamethasone given 11/05-11/06 -s/p Magnesium for neuroprotection -GBS negative -Daily NST's Poor growth affecting management of mother in third trimester 08/21/2021 07/10/2022 Overview: EFW 6% at 34 weeks. Weekly BPP's. Delivery 38-39 weeks. SW 08/21/21- 23.6 weeks gestation. Measuring 3 weeks behind- will continue to monitor. Pam Yarbrough APRN.CNM Subchorionic hematoma in first trimester 05/09/2021 07/10/2022 Overview: 05/09/21- visualized on TAUS. Pam Yarbrough APRN.CNM Supervision of other high ri sk pregnancies, second trimester 04/29/2021 11/05/2022 Overview: 07/09/2022atient delivered her previous child on November 14, 2021. TKRN on oral contraceptive 04/29/2021 07/10/2022 Overview: 04/29/2021This is an unplanned . Patient was on control pills. She states I am nervous about the because having 3 children is a lot. She plans on keeping the baby. Father of the baby is involved. He is the father of her other children. TKRN Nausea and vomiting in 01/25/2020 11/05/2022 Overview: 07/09/2022atient was seen at [facility] on June 29 for nausea and vomiting. Currently taking Zofran and this is helping to relieve her symptoms.Dietary considerations discussed . Advised patient to call/come in if she is unable to keep any food or fluids down in a 24-hour period. TKRN History of hypotension 01/25/202005/01 Overview: 02/02/2020 Pt has followed up with PCP. Instructed to increase salt intake. SW 01/25/2020Patient was seen by Dr Carlos 01/11 to discuss medications for low blood pressure. She states she was having syncope from low blood pressure. TKRN Patient request for diagnostic testing 01/25/2020 11/05/2022 Overview: 07/09/2022 Patient desires nuchal ultrasound with sequential testing. Declines NIPT. Patient declines genetic carrier screening testing TKRN Uterine size-date discrepanc y, third trimester 04/19/2018 02/02/2020 Overview: 04/19/18-Growth U/S at 31w6d, AGA, BRIANNA 12.8, 21st percentile. Will continue to watch fundal height. Consider growth U/S closer to 39 weeks. Alejandra Perdomo APRN.CNM Encounter for supervision of normal in teen primigravida, antepartum 04/05/2018 021 Syncope 11/05/2022 Overview: 04/05/18 Has h/o vasovagal syncope. See care everywhere. SW documented as of this encounter (statuses as of 12/01/2022) [facility]09-13-2023 NoteHNO ID: [id number] Author: Helena Mcintyre MD Service: Obstetrics Author Type: Resident Type: Progress Notes Filed: 11/04/2022 1:22 PM Note Text: Attestation signed by Jessica Baron MD at 11/04/2022 3:44 PM Attending Note I evaluated the patient and personally participated in the marcus components. I agree with the resident's findings and plan as documented and have discussed the case and management of the patient's care with the resident. Signature: Jessica Baron MD Date: 11/04/2022 Time: 3:44 PM OBSTETRICS OB ED PROGRESS NOTE SERVICE DATE: November 04, 2022 SERVICE TIME: Subjective Patient's stated reason for arrival: contractions CHIEF COMPLAINT: Contractions HISTORY OF THE PRESENT ILLNESS: The patient is a 22 year old female, , who is at 26w4d with an CHRIS of 02/06/2023, by Last Menstrual Period dating method. Patient is here reporting regular, painful contractions overnight. States they improved and were more irregular since she woke up this morning, then does not feel any contractions since getting on the tocometer in the [facility]. Feeling plenty of movement, no vaginal bleeding or leakage of fluid. Recently diagnosed with Bacterial Vaginosis on 11/02. PAST MEDICAL HISTORY Diagnosis Date Anemia Encounter for supervision of normal in teen primigravida, antepartum 04/05/2018 Hypotension anxiety depression 2019 difficulty gaining weight during Seizure (HCC) Had Neuro w/u. Related to Syncope. Last seizure in 2017. Syncope patient states due to hypotension PAST SURGICAL HISTORY Procedure Laterality Date NONE OB History T1 L3 SAB0 IAB0 Ectopic0 Multiple0 Live Births3 REVIEW OF SYSTEMS: The remainder of the review of systems is negative. Objective LAST VITALS: Pulse: 67 BP: 123/56 Resp: 16 Temp: 36.1 ?C (97 ?F) SpO2: 99 % Height: 160 cm (5' 3 ) Weight: 54.4 kg (120 lb) BMI: 21.26 PHYSICAL EXAM: General: WD, WN Heart: RR Lungs: normal respiratory effort Abdomen: soft, nontender CERVICAL EXAM: Dilation: 1 (11/04/22 1115 : Helena Mcintyre MD) Station: -3 (11/04/22 1115 : Helena Mcintyre MD) Effacement (%): 60 (11/04/22 1115 : Helena Mcintyre MD) MONITORING/ASSESSMENT: heart rate present and appropriate No contractions on toco LABS Diagnostic tests reviewed for today's visit: Most recent labs and imaging results. Assessment/Plan 22 year old EGA:26w4d. Presented to [facility] for contractions Active Hospital Problems Diagnosis Date Noted Abdominal pain affecting 11/04/2022 Overview Note: - reporting contractions overnight, resolved in [facility] - good movement, no vaginal bleeding or leakage of fluid - taking flagyl for bacterial vaginosis - urine dip negative for UTI - monitored x2 hours, no contractions during that time - patient comfortable with discharge at this time - given strict return precautions for labor, decreased movement, leakage of fluid, or vaginal bleeding - follow up for routine care in one week as scheduled Plan of care discussed with: Dr Baron and Dr Valiente. SIGNATURE: Helena Mcintyre MD PATIENT NAME: Keshia Silverman DATE: November 04, 2022 TIME: 11:51 AM [id number] Miscellaneous Notes* Telephone Encounter - Yuliana Carlos MD - 11/02/2022 9:55 AM EDT See result note Flagyl sent [facility] Miscellaneous Notes* Quick Notes - Yuliana Carlos MD - 10/29/2022 12:00 PM EDT SW- Some vaginal and vulvar pruritis and burning. No discharge. No vb, lof, pain. Good FM x 2 PE: Gen- NAD, well appearing Abd- Soft, gravid, NT Ext- No edema - Slight erythema of bilateral labia majora See flowsheet A/p 25 wk gestation - Check BV, yeast - Ultrasound today and final report pending at time of visit - [place] di twin gestation: Continue TTTS check q 2 weeks and weekly BPP at 32 wks - Cont vaginal progesterone - RTO 2 wks Yuliana Carlos DO documented [facility] Instructions* Patient Instructions* Ev Rivero MA - 10/29/2022 10:42 AM EDT SEQUENTIAL SCREENINGS The [facility] offers sequential screenings for women who are interested in screenings for chromosomal abnormalities and certain defects during a . The sequential screen combinesultrasound and blood tests to determine the risk of chromosomal abnormalities, including Down's Syndrome (Trisomy 21) and Trisomy 18, as well as open neural tube defects including spina bifida. Ultrasound examination is performed between 11 weeks and 13 weeks gestational age. Blood tests are drawn after the ultrasound and again later in the between 15 and 21 weeks gestational age. Please let your physician know if you are interested in this testing. It will require an appointment withour vacuum technician. This is not an ultrasound performed by a physician in our office during a routine visit. SIGNS AND SYMPTOMS OF LABOR 1. Contractions every 10 minutes or more often 2. Clear, pink, or brownish fluid (water) leaking from vagina 3. Feeling that baby is pushing down, pressure 4. Low, dull backache 5. Cramps that feel like a period 6. Cramps with or without diarrhea If you notice any of the above symptoms, contact our office at [phone] and ask to speak with anurse. After hours, you can call doctors registry at [phone] OR call [facility] at [phone] ask to have the doctor manager retention paged. If you consider this an emergency, dial 9-- or go to your nearest emergency department. NEED HELP? Are you dealing with a violent or abusive relationship? Are you a victim of rape or sexual assult? Call [facility] ([place]) 24 hour Crisis Hotline: 535.211.3510 or 243-753-5509. MANUAL Your Guide to a Healthy manual is now on-line. Visit [email or web address] to download your free copy documented in this encounterBucyrus [facility] Hospital08-24-2023 Miscellaneous Notes* Telephone Encounter - Chapincito Zavala MD - 10/15/2022 11:01 AM EDT Patient's request for medication is as follows Requested Prescriptions Signed Prescriptions Disp Refills progesterone micronized (PROMETRIUM) 100 mg capsule 30 capsule 3 Sig: Use 1 capsule vaginally daily at bedtime. Authorizing Provider: CHAPINCITO ZAVALA Order entered - please phone pharmacy and notify patient. Chapincito Zavala MD thanks. * Telephone Encounter - Abigail Jurado RN - 10/15/2022 10:18 AM EDT Spoke with patient. Agreeable to vaginal progesterone. Would like RX sent to [facility] in [place]. Abigail Jurado RN * Telephone Encounter - Chapincito Zavala MD - 10/15/2022 10:[address] Kessler from [facility] contacted me about starting the patient on vaginal progesterone for short cervix and history of delivery. I believe she discussed this with the patient earlier in the . Confirmed patient is comfortable with this and pharmacy and I will send this in for her. Chapincito Zavala MD documented in this encounterBucyrus [facility]08-23-2023 Miscellaneous Notes* Quick Notes - Chapincito Zavala MD - 10/14/2022 2:04 PM EDT RR- VB No. LOF No. CTXS No. Movement: present. Other c/o: No. Medication list reviewed. Physical Exam See Flow Sheet Abd: soft, nontender, gravid Ext: edema: Trace A/P 23w4d Estimated Date of Delivery: 02/06/23 Labs: schedule 28 week labs last cervical length today. repeat US in 2 weeks for TTTS growth in 4 weeks PTL precuations. heartburn better w/ pepcid. Chapincito Zavala M.D. documented in this encounterBucyrus [facility] Hospital08-23-2023 Instructions* Patient Instructions* Joanne Noguera Ma - 10/14/2022 1:03 PM EDT SEQUENTIAL SCREENINGS The [facility] offers sequential screenings for women who are interested in screenings for chromosomal abnormalities and certain defects during a . The sequential screen combinesultrasound and blood tests to determine the risk of chromosomal abnormalities, including Down's Syndrome (Trisomy 21) and Trisomy 18, as well as open neural tube defects including spina bifida. Ultrasound examination is performed between 11 weeks and 13 weeks gestational age. Blood tests are drawn after the ultrasound and again later in the between 15 and 21 weeks gestational age. Please let your physician know if you are interested in this testing. It will require an appointment withour vacuum technician. This is not an ultrasound performed by a physician in our office during a routine visit. SIGNS AND SYMPTOMS OF LABOR 1. Contractions every 10 minutes or more often 2. Clear, pink, or brownish fluid (water) leaking from vagina 3. Feeling that baby is pushing down, pressure 4. Low, dull backache 5. Cramps that feel like a period 6. Cramps with or without diarrhea If you notice any of the above symptoms, contact our office at [phone] and ask to speak with anurse. After hours, you can call [employer] registry at [phone] OR call [facility] at [phone] ask to have the doctor manager retention paged. If you consider this an emergency, dial 9- or go to your nearest emergency department. NEED HELP? Are you dealing with a violent or abusive relationship? Are you a victim of rape or sexual assult? Call [facility] ([place]) 24 hour Crisis Hotline: 626.804.4642 or 213-630-5333. MANUAL Your Guide to a Healthy manual is now on-line. Visit [email or web address] to download your free copy documented in this encounterBucyrus [facility] Hospital07-25-2023 NoteHNO ID: [id number] Author: Lauri Kessler MD Service: ? Author Type: Physician Type: Progress Notes Filed: 09/15/2022 4:15 PM Note Text: OBSTETRICS MATERNAL MEDICINE CONSULT SERVICE DATE: September 15, 2022 SERVICE TIME: 300 REQUESTING PROVIDER: Dr Núñez Subjective HISTORY OF THE PRESENT ILLNESS: Keshia is a 22 year old female, , who is at 19w3d with an CHRIS of 02/06/2023, by Last Menstrual Period dating method. She presents today for consultation due to monochorionic/diamniotic twins and history two deliveries (36 weeks) TVCL was 25 mm without funneling or dynamic changes last week. She is feeling overall quite well without leaking, bleeding or pain. HISTORY REVIEW PAST MEDICAL HISTORY Diagnosis Date Anemia Encounter for supervision of normal in teen primigravida, antepartum 04/05/2018 Hypotension anxiety depression 2019 difficulty gaining weight during Seizure (HCC) Had Neuro w/u. Related to Syncope. Last seizure in 2016. Syncope patient states due to hypotension PAST SURGICAL HISTORY Procedure Laterality Date NONE FAMILY HISTORY Problem Relation Age of Onset Bipolar disorder Mother no contact with her Bipolar disorder Father was in and out of assisted, of heroin overdose in 01/09 Drug abuse Father Drug abuse Sister is 16 months younger than patient other (borderline personality disorder) Sister ADD/ADHD Sister is age 11 as of 04/25/2019 Heart Attack Maternal Grandmother Thyroid Maternal Grandmother other (blood cancer) Maternal Grandmother COPD Maternal Grandfather smoker Heart Paternal Grandmother No Known Problems Son other (gastric reflux) Son No Known Problems Daughter Social History Tobacco Use Smoking status: Never Smokeless tobacco: Never Vaping Use Vaping Use: Never used Substance Use Topics Alcohol use: No Drug use: No Obstetric History T1 L3 SAB0 IAB0 Ectopic0 Multiple0 Live Births3 Name of Baby 1: Hugo Date: 05/10/18 GA: 38w4d Delivery: Vaginal, Spontaneous Apgar1: Not recorded Apgar5: Not recorded Living: Living Name of Baby 2: Jose Martin Date: 08/13/20 GA: 36w3d Delivery: Vaginal, Spontaneous Apgar1: 8 Apgar5: 9 Living: Living Name of Baby 3: [place] Date: 11/14/21 GA: 36w0d Delivery: Vaginal, Spontaneous Apgar1: 8 Apgar5: 9 Living: Living Name of Baby 4: Not recorded Date: Not recorded GA: Not recorded Delivery: Not recorded Apgar1: Not recorded Apgar5: Not recorded Living: Not recorded ALLERGIES Allergen Reactions Penicillins Rash Zoloft [Sertraline] Intolerance Difficulty sleeping, restless legs, shaky PRIOR TO ADMISSION MEDICATIONS: Current Outpatient Medications Medication Instructions famotidine (PEPCID) 20 mg, ORAL, 2 TIMES DAILY ondansetron orally disintegrating (ZOFRAN ODT) 4 mg, ORAL, EVERY 8 HOURS NEEDED prental multivitamin 27 mg iron- 800 mcg tablet 1 tablet, ORAL, DAILY promethazine (PHENERGAN) 12.5 mg, ORAL, EVERY 6 HOURS NEEDED REVIEW OF SYSTEMS: The remainder of the review of systems is negative. Objective LAST VITALS: BP 86/52 Wt 106 lb 12.8 oz (48.4 kg) LMP 05/02/2022 (Exact Date) BMI 18.92 kg/m? PHYSICAL EXAM: General: WD, WN HEENT: NC/AT, sclera white, pupils equal Lungs: normal respiratory effort Abdomen: soft, nontender during US exam LABS Diagnostic tests reviewed for today's visit: Most recent labs and imaging results. Impression/Recommendations 22 year old EGA:19w3d with mono/di twins, history delivery x 2 and stable cervical length around 28 mm today. We discussed complications related to monochorionic/diamniotic twins including (not limited to) congenital malformations, selective growth restriction (sFGR), twin to twin transfusion syndrome (TTTS), twin anemia polycythemia sequence (TAPS), twin reverse arterial perfusion sequence (TRAP), risk of loss of one or both twins, as well as risks related to multiple including (not limited to) increased risk of delivery, increased risk preeclampsia or diabetes, need for delivery, hemorrhage at delivery. Delivery uncomplicated mono/di twins recommended (ACOG) late /early term 34w-37w6d however outcomes better at/after 37 weeks if stable and testing reassuring. If any complications arise delivery timing can be individualized. She is at increased risk for recurrent based on her history. Limited evidence exists regarding prevention for twins (other than exam-indicated cerclage). Vaginal progesterone should be considered for cervical shortening < 25 mm and cerclage can be considered if TVCL < 25 mm and seriously considered 10-15 mm, and indicated in the presence of cervical dilation. Plan weekly TVCL until 23-24 weeks due to risks. Monochorionic diamniotic twin gestat (more content not included)...[facility]07-14-2023 NoteHNO ID: [id number] Author: Usman Ang MD Service: ? Author Type: Physician Type: Progress Notes Filed: 09/04/2022 12:54 PM Note Text: Patient presents with: Trauma: Pt reported 17.6 week twin gestation scabies exposure. HPI: Exposed to scabies. Her in-laws were diagnosed with scabies and her son yesterday. Rash: Location: left axilla, legs Duration: started last night Pruritis: Yes Pain: No Change: Bleeding/ulceration/blister/pustule: excoriation Contacts with rash: Yes Treatment: none Currently 18 weeks . MEDICATIONS: famotidine (PEPCID) 20 mg tablet Take 1 tablet by mouth twice daily. promethazine (PHENERGAN) 12.5 mg tablet Take 1 tablet by mouth every 6 hours as needed. ondansetron orally disintegrating (ZOFRAN ODT) 4 mg disintegrating tablet Take 1 tablet by mouth every 8 hours as needed for nausea/vomiting. prental multivitamin 27 mg iron- 800 mcg tablet Take 1 tablet by mouth once daily. ALLERGIES: ALLERGIES Allergen Reactions Penicillins Rash Zoloft [Sertraline] Intolerance Difficulty sleeping, restless legs, shaky VITALS: BP 110/66 Pulse 118 Temp 36.8 ?C (98.3 ?F) (Temporal) Resp 18 Wt 47.2 kg (104 lb) LMP 05/02/2022 (Exact Date) SpO2 97% BMI 18.42 kg/m? PHYSICAL EXAM: GEN: pleasant, no acute distress, alert. Accompanied by her significant other and 3 children. SKIN: few faint pinpoint excoriation eschar on follicles of right lateral lower leg. No visible rash in left axilla. ASSESSMENT/PLAN: 1. Exposure to scabies - ICD9: V01.89, ICD10: Z20.7 Reviewed treatment regimen. Treat entire family on the same day. - PERMETHRIN 5 % TOPICAL CREAM Usman Ang [facility]07-14-2023 History of Present illness Narrative* Usman Ang MD - 09/04/2022 12:33 PM EDT Patient presents with: Trauma: Pt reported 17.6 week twin gestation scabies exposure. HPI: Exposed to scabies. Her in-laws were diagnosed with scabies and her son yesterday. Rash: Location: left axilla, legs Duration: started last night Pruritis: Yes Pain: No Change: Bleeding/ulceration/blister/pustule: excoriation Contacts with rash: Yes Treatment: none Currently 18 weeks . MEDICATIONS: famotidine (PEPCID) 20 mg tablet Take 1 tablet by mouth twice daily. promethazine (PHENERGAN) 12.5 mg tablet Take 1 tablet by mouth every 6 hours as needed. ondansetron orally disintegrating (ZOFRAN ODT) 4 mg disintegrating tablet Take 1 tablet by mouth every 8 hours as needed for nausea/vomiting. prental multivitamin 27 mg iron- 800 mcg tablet Take 1 tablet by mouth once daily. ALLERGIES: ALLERGIES Allergen Reactions Penicillins Rash Zoloft [Sertraline] Intolerance Difficulty sleeping, restless legs, shaky VITALS: BP 110/66 Pulse 118 Temp 36.8 C (98.3 F) (Temporal) Resp 18 Wt 47.2 kg (104 lb) LMP 05/02/2022 (Exact Date) SpO2 97% BMI 18.42 kg/m PHYSICAL EXAM: GEN: pleasant, no acute distress, alert. Accompanied by her significant other and 3 children. SKIN: few faint pinpoint excoriation eschar on follicles of right lateral lower leg. No visible rash in left axilla. ASSESSMENT/PLAN: 1. Exposure to scabies - ICD9: V01.89, ICD10: Z20.7 Reviewed treatment regimen. Treat entire family on the same day. - PERMETHRIN 5 % TOPICAL CREAM Usman Ang MD [facility] Miscellaneous Notes* Quick Notes - Kimani Núñez MD - 08/27/2022 9:21 AM EDT KJ - No VB/LOF. Reports occ mild ctx. Movement: absent. Other c/o: Yes: GI: heartburn Medication list reviewed. Physical Exam See Flow Sheet Gen: no accute distress, well appearing A/P 16w5d Estimated Date of Delivery: 02/06/23 [place]-di twins - reviewed recommendation for every 2 week US GERD - rx pepcid Kimani Núñez MD documented in [facility]Bu[facility]07-[facility]23 Instructions* Patient Instructions* Ev Rivero MA - 08/27/2022 8:26 AM EDT SEQUENTIAL SCREENINGS [facility] offers sequential screenings for women who are interested in screenings for chromosomal abnormalities and certain defects during a . The sequential screen combinesultrasound and blood tests to determine the risk of chromosomal abnormalities, including Down's Syndrome (Trisomy 21) and Trisomy 18, as well as open neural tube defects including spina bifida. Ultrasound examination is performed between 11 weeks and 13 weeks gestational age. Blood tests are drawn after the ultrasound and again later in the between 15 and 21 weeks gestational age. Please let your physician know if you are interested in this testing. It will require an appointment withour vacuum technician. This is not an ultrasound performed by a physician in our office during a routine visit. SIGNS AND SYMPTOMS OF LABOR 1. Contractions every 10 minutes or more often 2. Clear, pink, or brownish fluid (water) leaking from vagina 3. Feeling that baby is pushing down, pressure 4. Low, dull backache 5. Cramps that feel like a period 6. Cramps with or without diarrhea If you notice any of the above symptoms, contact our office at [phone] and ask to speak with anurse. After hours, you can call doctors registry at [phone] OR call [facility] at [phone] ask to have the doctor manager retention paged. If you consider this an emergency, dial [phone]- or go to your nearest emergency department. NEED HELP? Are you dealing with a violent or abusive relationship? Are you a victim of rape or sexual assult? Call [facility] ([place]) 24 hour Crisis Hotline: 425.863.3950 or 092-229-2188. MANUAL Your Guide to a Healthy manual is now on-line. Visit [email or web address] to download your free copy documented in this encounterBucyrus [facility]06-20-2023 NoteHNO ID: [id number] Author: Maame Harmon [facility] Service: ? Author Type: Genetic Counselor Type: Progress Notes Filed: 08/11/2022 10:01 PM Note Text: Summary: NIPS Order Change for Twin Gestation Received notification from [employer] that Ms. Silverman's noninvasive screen (NIPS) could not be performed as ordered as this is a twin gestation and sex chromosome aneuploidy cannot be assessed in twins. Confirmed that is indeed a twin gestation and completed laboratory change in authorization form to NIPS order for CORE only (trisomies 13, 18 and 21) with sex. Form sent back to lab. Abstract forwarded to OB provider for awareness. Maame Harmon MS, [facility] Licensed Genetic CounselorFisher[facility]06-20-[facility] History of Present illness Narrative* SHYAM Pereira - 08/11/2022 9:56 PM EDTSummary: NIPS Order Change for Twin Gestation Received notification from [facility] that Ms. Silverman's noninvasive screen (NIPS) could not be performed as ordered as this is a twin gestation and sex chromosome aneuploidy cannot be assessed intwins. Confirmed that is indeed a twin gestation and completed laboratory change in authorization form to NIPS order for CORE only (trisomies 13, 18 and 21) with sex. Form sent back to lab. Abstract forwarded to OB provider for awareness. Maame Harmon MS, [facility] Licensed Genetic Counselor documented in this encounterBu[facility]06-13-2023 Miscellaneous Notes* Quick Notes - Kimani Núñez MD - 08/04/2022 3:21 PM EDT KJ - No VB/LOF/ctxs. A&P: NT today - final result after patient left shows mono/di . Results called by nursing staff. MFM consult ordered NIPT with PNB Follow up 3 weeks or PRN N&V - phenergan & zofran. Discussed staying hydrated & caloric intake as possible. Kimani Núñez MD documented in this encounterBu[facility]06-13-2023 Instructions* Patient Instructions* Joanne Noguera Ma - 08/04/2022 3:09 PM EDT SEQUENTIAL SCREENINGS The [facility] offers sequential screenings for women who are interested in screenings for chromosomal abnormalities and certain defects during a . The sequential screen combinesultrasound and blood tests to determine the risk of chromosomal abnormalities, including Down's Syndrome (Trisomy 21) and Trisomy 18, as well as open neural tube defects including spina bifida. Ultrasound examination is performed between 11 weeks and 13 weeks gestational age. Blood tests are drawn after the ultrasound and again later in the between 15 and 21 weeks gestational age. Please let your physician know if you are interested in this testing. It will require an appointment withour vacuum technician. This is not an ultrasound performed by a physician in our office during a routine visit. SIGNS AND SYMPTOMS OF LABOR 1. Contractions every 10 minutes or more often 2. Clear, pink, or brownish fluid (water) leaking from vagina 3. Feeling that baby is pushing down, pressure 4. Low, dull backache 5. Cramps that feel like a period 6. Cramps with or without diarrhea If you notice any of the above symptoms, contact our office at [phone] and ask to speak with anurse. After hours, you can call doctors registry at [phone] OR call [facility] at [phone] ask to have the doctor manager retention paged. If you consider this an emergency, dial [phone] or go to your nearest emergency department. NEED HELP? Are you dealing with a violent or abusive relationship? Are you a victim of rape or sexual assult? Call [facility] ([place]) 24 hour Crisis Hotline: 790.158.3020 or 946-021-2908. MANUAL Your Guide to a Healthy manual is now on-line. Visit [email or web address] to download your free copy documented in this encounterBucyrus [facility]05-19-2023 NoteHNO ID: [id number] Author: Kimani Núñez MD Service: ? Author Type: Physician Type: Progress Notes Filed: 07/10/2022 12:00 PM Note Text: INITIAL OB ASSESSMENT Dyer Helper offered: Patient declines. Obstetric History T1 L3 SAB0 IAB0 Ectopic0 Multiple0 Live Births3 Name of Baby 1: Hugo Date: 05/10/18 GA: 38w4d Delivery: Vaginal, Spontaneous Apgar1: Not recorded Apgar5: Not recorded Living: Living Name of Baby 2: Jose Martin Date: 08/13/20 GA: 36w3d Delivery: Vaginal, Spontaneous Apgar1: 8 Apgar5: 9 Living: Living Name of Baby 3: [place] Date: 11/14/21 GA: 36w0d Delivery: Vaginal, Spontaneous Apgar1: 8 Apgar5: 9 Living: Living Name of Baby 4: Not recorded Date: Not recorded GA: Not recorded Delivery: Not recorded Apgar1: Not recorded Apgar5: Not recorded Living: Not recorded HPI: Keshia is a 22 year old White Female here to establish Obstetrical Care. Patient's last menstrual period was 05/02/2022 (exact date). from OB Dating Form. Cycles regular was unplanned but accepted Complaints: nausea and vomiting, ligia is helping OB History T1 L3 SAB0 IAB0 Ectopic0 Multiple0 Live Births3 Previous history: Prior : never History of 4th degree laceration: No History of shoulder dystocia: No History of Hypertensive disorders including pre-eclampsia, chronic hypertension or gestational hypertension: No History of gestational diabetes: No Patient's Risk Screening for delivery: MEDICAL/PSYCHOSOCIAL HISTORY: History of hemorrhage or bleeding concerns: No Thyroid Disease: No History of chronic hypertension: No History of pre-existing diabetes: No ABO/RH(D) Date Value Ref Range Status 03/01/2020 O POSITIVE Final BMI 17.45 kg/(m2) History of abnormal pap: No Prior treatment for cervical dysplasia: none. History of STDs: None Tobacco use: No Caffeine use: Yes - pop AND coffee Drug use: No Alcohol use: No Multivitamin with Folic acid: Yes Episcopalian or heritage: No Would refuse blood transfusion if medically necessary: No Are you currently employed? No Do you have any history of depression, anxiety, PTSD, eating disorders or other mood problems: Yes Do you have any safety concerns or history of traumatic events that you would like to discuss with your provider: No How often does this describe you? I don't have enough money to pay my bills: Never Within the past 12 months, have you worried that your food would run out before you had money to buy more: Never In the past 12 months, has lack of reliable transportation kept you from going to medical appointments or work, or from keeping things needed for daily living: Never In the past 12 months, have you had any concerns about having a place to live, or about the condition or quality of your housing: Never Are there any cultural or spiritual needs we should be aware of: No Over the past two weeks have you felt down, depressed, or hopeless: Negative Over the past two weeks have you felt little interest or pleasure in doing things: Negative GENETIC SCREENING: Partner present: No Patient verbalized knowledge of partner family health history: Yes Do you or your partner have any personal or family history of defects not previously discussed: No Do you have history of a complicated by anomaly, genetic condition, or demise: No Marital Status:Committed Relationship Partner: Name: Cliff Age: 22 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 Related to Syncope. Last seizure in 2016. Syncope patient states due to hypotension PAST SURGICAL HISTORY Procedure Laterality Date NONE Current Outpatient Medications Medication Sig Dispense Refill prental multivitamin 27 mg iron- 800 mcg tablet Take 1 tablet by mouth once daily. ondansetron orally disintegrating (ZOFRAN ODT) 4 mg disintegrating tablet Take 1 tablet by mouth every 8 hours as needed for nausea/vomiting. 30 tablet 1 fluticasone (FLONASE) 50 mcg/actuation nasal spray Use 2 Sprays in each nostril once daily. Rinse mouth after use. (Patient not taking: Reported on 07/09/2022) 1 Each 0 lisdexamfetamine (VYVANSE) 10 mg capsule Take 1 capsule by mouth once daily for 30 days. (Patient not taking: Reported on 07/10/2022) 30 capsule 0 norgestimate 0.25 mg-ethinyl estradiol 35 mcg (SPRINTEC) 0.25-35 mg-mcg per tablet Take 1 tablet by mouth once daily. (Patient not taking: Reported on 07/09/2022) 90 tablet 3 No current facility-administered medications for this visit. Allergies As of Date: 07/10/2022 Allergen Noted Reaction PE (more content not included)...[facility]05-[facility]23 NoteHNO ID: [id number] Author: Dara Beauchamp RN Service: ? Author Type: ? Type: Progress Notes Filed: 07/09/2022 9:43 AM Note Text: # 1 - Date: 05/10/18, Sex: Male, Weight: 6 lb 2 oz (2.778 kg), GA: 38w4d, Delivery: Vaginal, Spontaneous, Apgar1: None, Apgar5: None, Living: Living, Comments: spontaneous labor, EBL 300cc, PP Depression # 2 - Date: 08/13/20, Sex: Male, Weight: 6 lb 3 oz (2.807 kg), GA: 36w3d, Delivery: Vaginal, Spontaneous, Apgar1: 8, Apgar5: 9, Living: Living, Comments: spontaneous labor, EBL 200m, nuchal cord x1, no lacerations # 3 - Date: 11/14/21, Sex: Female, Weight: 4 lb 13 oz (2.183 kg), GA: 36w0d, Delivery: Vaginal, Spontaneous, Apgar1: 8, Apgar5: 9, Living: Living, Comments: Yuri inj, spontaneous labor, IUGR, EBL 350mL, methergine IM x1, no lacerations, loose nuchal and body cord # 4 - Date: None, Sex: None, Weight: None, GA: None, Delivery: None, Apgar1: None, Apgar5: None, Living: None, Comments: NoneFisher[facility]05-[facility]-2023 Miscellaneous Notes* Telephone Encounter - Bozena Anderson RN - 06/30/2022 2:29 PM EDT Patient notified and voiced understanding. N/V precautions reviewed. Bozena Anderson RN * Telephone Encounter - Kimani Núñez MD - 06/30/2022 1:00 PM EDT Rx given Please reviewed N&V precautions Kimani Núñez MD * Telephone Encounter - Abigail Jurado RN - 06/30/2022 12:48 PM EDT LMP 05/02/22 approximately 8w3d Patient went to [facility] ER yesterday because she was unable to keep any food/fluids down. ER doctor gave her promethazine. It makes her so drowsy that she can't care for her other children. She is eatingsmall frequent meals and trying to keep fluids down. She has vomited x3 since 9 AM today. She did well on Zofran ODT. She said that swallowing pills make it difficult for her too. Abigail Jurado RN documented in this encounterBu[facility]05-08-2023 Miscellaneous Notes* Telephone Encounter - Chapincito Zavala MD - 06/29/2022 12:52 PM EDT I can see her at 815 tomorrow for this if needed. Thanks. Chapincito Zavala MD * Telephone Encounter - Abigail Jurado RN - 06/29/2022 11:33 AM EDT Received below staff message. LMP 3/ 8w2d Patient has not been able to keep any food or fluids down in the last 24 hours. Vitamin B6 and Unisom don't work for her, but Zofran did last . Advised to go to ER for IV hydration and antiemetics. Patient voiced agreement. PNOB and NOB scheduled for end of next week. Denies cramping or bleeding. Abigail Jurado RN * Telephone Encounter - Abigail Jurado RN - 06/29/2022 11:26 AM EDT ----- Message from [facility] sent at 06/29/2022 10:54 AM EDT ----- Regarding: WHI/TAYLOR/ANY Contact: Patient has been identified by name and Date of : Yes Patient: Keshia Silverman Date of : 2000 Provider for this encounter : JR Nix APRN.CNP Reason for call: Triage Was an appointment scheduled: No Reason for requesting visit: -LMP 05-02-2022. PERSISTENT VOMITING Person calling: self Return call to: self Call patient at: on cell [phone] (home) [phone] (work) [phone] (cell) Payor: [place] [employer]ICA[employer] / Plan: [facility] MEDICAID / Product Type: Medicaid / [facility] documented in this encounterBucyrus [facility]04-11-2023 NoteHNO ID: [id number] Author: Mat Alcala APRN.CNP Service: ? Author Type: Nurse Practitioner Type: Progress Notes Filed: 06/02/2022 12:55 PM Note Text: Subjective HPI HPI Keshia Silverman is a 22 year old female who presents today for CC of sinus pressure. This started 2 weeks ago/worsening. Has tried otc medication without relief. Symptoms are worsened by nothing. Risk factors sick exposures at home. Nonsmoker. Denies possibility of being . .Patient presents with: Sinus Problem: sinus pressure, drainage x 2 weeks PAST MEDICAL HISTORY Diagnosis Date Anemia Encounter for supervision of normal in teen primigravida, antepartum 04/05/2018 Hypotension depression 2019 difficulty gaining weight during Seizure (HCC) Had Neuro w/u. Related to Syncope. Last seizure in 2017. Syncope patient states due to hypotension PAST SURGICAL HISTORY Procedure Laterality Date NONE ALLERGIES Penicillins and Zoloft [Sertraline] MEDICATIONS lisdexamfetamine (VYVANSE) 10 mg capsule Take 1 capsule by mouth once daily for 30 days. norgestimate 0.25 mg-ethinyl estradiol 35 mcg (SPRINTEC) 0.25-35 mg-mcg per tablet Take 1 tablet by mouth once daily. FAMILY HISTORY Problem Relation Age of Onset Bipolar disorder Mother no contact with her Bipolar disorder Father was in and out of assisted, of heroin overdose in 01/09 Drug abuse Father Drug abuse Sister is 16 months younger than patient other (borderline personality disorder) Sister ADD/ADHD Sister is age 11 as of 04/25/2019 Heart Attack Maternal Grandmother Thyroid Maternal Grandmother COPD Maternal Grandfather smoker Heart Paternal Grandmother No Known Problems Son other (gastric reflux) Son Social History Tobacco Use Smoking status: Never Smokeless tobacco: Never Vaping Use Vaping Use: Never used Substance Use Topics Alcohol use: No Drug use: No Review of Systems Constitutional: Negative for fever. HENT: Positive for congestion, ear pain and sinus pain. Negative for ear discharge, nosebleeds and sore throat. Respiratory: Positive for cough. Negative for shortness of breath and wheezing. Musculoskeletal: Negative for neck pain. Objective Blood pressure 96/60, pulse 94, temperature 36.6 ?C (97.9 ?F), resp. rate 16, weight 46.2 kg (101 lb 12.8 oz), last menstrual period 05/02/2022, SpO2 98 %, not currently . Physical Exam Constitutional: General: She is not in acute distress. Appearance: She is not toxic-appearing or diaphoretic. HENT: Head: Normocephalic and atraumatic. Right Ear: Hearing, tympanic membrane, ear canal and external ear normal. Left Ear: Hearing, tympanic membrane, ear canal and external ear normal. Nose: Right Sinus: Maxillary sinus tenderness and frontal sinus tenderness present. Mouth/Throat: Pharynx: Uvula midline. No pharyngeal swelling, oropharyngeal exudate, posterior oropharyngeal erythema or uvula swelling. Eyes: General: Lids are normal. No scleral icterus. Right eye: No discharge. Left eye: No discharge. Conjunctiva/sclera: Conjunctivae normal. Pupils: Pupils are equal, round, and reactive to light. Neck: Trachea: Trachea normal. Cardiovascular: Rate and Rhythm: Normal rate and regular rhythm. Heart sounds: Normal heart sounds. Pulmonary: Effort: Pulmonary effort is normal. Breath sounds: Normal breath sounds. Musculoskeletal: Cervical back: Normal range of motion and neck supple. Lymphadenopathy: Cervical: No cervical adenopathy. Right cervical: No superficial cervical adenopathy. Left cervical: No superficial cervical adenopathy. Skin: Findings: No rash. Neurological: Mental Status: She is alert and oriented to person, place, and time. ASSESSMENT/PLAN: 1. Bacterial sinusitis - ICD9: 473.9, 041.9, ICD10: J32.9, B96.89 - Will begin treatment with as per antibiotic as written, see orders - Supportive care with plenty of fluids, rest, and analgesia prn. - Follow up in 3-5 days if symptoms persist or worsen. - DOXYCYCLINE MONOHYDRATE 100 MG TABLET - FLUTICASONE PROPIONATE 50 MCG/ACTUATION NASAL SPRAY,SUSPENSION Mat Alcala APRN.CNPFisher[facility]04-11-2023 History of Present illness Narrative* Mat Alcala APRN.DELPHINE - 06/02/2022 12:30 PM EDT Subjective HPI HPI Keshia Silverman is a 22 year old female who presents today for CC of sinus pressure. This started 2 weeks ago/worsening. Has tried otc medication without relief. Symptoms are worsened by nothing. Risk factors sick exposures at home. Nonsmoker. Denies possibility of being . .Patient presents with: Sinus Problem: sinus pressure, drainage x 2 weeks PAST MEDICAL HISTORY Diagnosis Date Anemia Encounter for supervision of normal in teen primigravida, antepartum 04/05/2018 Hypotension depression 2019 difficulty gaining weight during Seizure (HCC) Had Neuro w/u. Related to Syncope. Last seizure in 2017. Syncope patient states due to hypotension PAST SURGICAL HISTORY Procedure Laterality Date NONE ALLERGIES Penicillins and Zoloft [Sertraline] MEDICATIONS lisdexamfetamine (VYVANSE) 10 mg capsule Take 1 capsule by mouth once daily for 30 days. norgestimate 0.25 mg-ethinyl estradiol 35 mcg (SPRINTEC) 0.25-35 mg-mcg per tablet Take 1 tablet bymouth once daily. FAMILY HISTORY Problem Relation Age of Onset Bipolar disorder Mother no contact with her Bipolar disorder Father was in and out of assisted, of heroin overdose in 01/09 Drug abuse Father Drug abuse Sister is 16 months younger than patient other (borderline personality disorder) Sister ADD/ADHD Sister is age 11 as of 04/25/2019 Heart Attack Maternal Grandmother Thyroid Maternal Grandmother COPD Maternal Grandfather smoker Heart Paternal Grandmother No Known Problems Son other (gastric reflux) Son Social History Tobacco Use Smoking status: Never Smokeless tobacco: Never Vaping Use Vaping Use: Never used Substance Use Topics Alcohol use: No Drug use: No Review of Systems Constitutional: Negative for fever. HENT: Positive for congestion, ear pain and sinus pain. Negative for ear discharge, nosebleeds and sore throat. Respiratory: Positive for cough. Negative for shortness of breath and wheezing. Musculoskeletal: Negative for neck pain. Objective Blood pressure 96/60, pulse 94, temperature 36.6 C (97.9 F), resp. rate 16, weight 46.2 kg (101 lb 12.8 oz), last menstrual period 05/02/2022, SpO2 98 %, not currently . Physical Exam Constitutional: General: She is not in acute distress. Appearance: She is not toxic-appearing or diaphoretic. HENT: Head: Normocephalic and atraumatic. Right Ear: Hearing, tympanic membrane, ear canal and external ear normal. Left Ear: Hearing, tympanic membrane, ear canal and external ear normal. Nose: Right Sinus: Maxillary sinus tenderness and frontal sinus tenderness present. Mouth/Throat: Pharynx: Uvula midline. No pharyngeal swelling, oropharyngeal exudate, posterior oropharyngeal erythema or uvula swelling. Eyes: General: Lids are normal. No scleral icterus. Right eye: No discharge. Left eye: No discharge. Conjunctiva/sclera: Conjunctivae normal. Pupils: Pupils are equal, round, and reactive to light. Neck: Trachea: Trachea normal. Cardiovascular: Rate and Rhythm: Normal rate and regular rhythm. Heart sounds: Normal heart sounds. Pulmonary: Effort: Pulmonary effort is normal. Breath sounds: Normal breath sounds. Musculoskeletal: Cervical back: Normal range of motion and neck supple. Lymphadenopathy: Cervical: No cervical adenopathy. Right cervical: No superficial cervical adenopathy. Left cervical: No superficial cervical adenopathy. Skin: Findings: No rash. Neurological: Mental Status: She is alert and oriented to person, place, and time. ASSESSMENT/PLAN: 1. Bacterial sinusitis - ICD9: 473.9, 041.9, ICD10: J32.9, B96.89 - Will begin treatment with as per antibiotic as written, see orders - Supportive care with plenty of fluids, rest, and analgesia prn. - Follow up in 3-5 days if symptoms persist or worsen. - DOXYCYCLINE MONOHYDRATE 100 MG TABLET - FLUTICASONE PROPIONATE 50 MCG/ACTUATION NASAL SPRAY,SUSPENSION Mat Alcala APRN.GEOSPATIAL EXTRACTOR ANALYSIS documented in [facility]23 NoteHNO ID: [id number] Author: Usman Ang MD Service: ? Author Type: Physician Type: Progress Notes Filed: 05/28/2022 2:15 PM Note Text: Patient presents with: Dental Problem: Pt reported lower (RT) tooth pain, x3 days. HPI: Dental pain: Duration: 3 days Location: right lower molar Character: pulsing Radiation: No. Aggravating: opening mouth, chewing on that side Relieving: Pain relievers: Motrin Associated: tastes blood sometimes Pertinent negatives: Denies earache, fever, chills, injury MEDICATIONS: lisdexamfetamine (VYVANSE) 10 mg capsule Take 1 capsule by mouth once daily for 30 days. norgestimate 0.25 mg-ethinyl estradiol 35 mcg (SPRINTEC) 0.25-35 mg-mcg per tablet Take 1 tablet by mouth once daily. ALLERGIES: ALLERGIES Allergen Reactions Penicillins Rash Zoloft [Sertraline] Intolerance Difficulty sleeping, restless legs, shaky VITALS: BP 110/64 Pulse 71 Temp 37.1 ?C (98.8 ?F) (Tympanic) Resp 16 Wt 46 kg (101 lb 6.4 oz) LMP 05/02/2022 SpO2 100% No BMI 17.96 kg/m? PHYSICAL EXAM: GEN: pleasant, no acute distress, alert HEENT: PERRL, EOMI, TMs without erythema or effusion. Moist mucus membranes. No overt cavities or dental fractures right molars. The last 2 teeth are non-tender to palpation. The gingiva behind the right lower 2nd molar is erythematous with maceration. No pain with palpation over the external jaw NECK: supple, no lymphadenopathy, no thyromegaly HEART: regular rate, regular rhythm, no murmurs LUNGS: clear to auscultation, no wheezes or crackles, no increased WOB EXT: no clubbing, no cyanosis, no edema ASSESSMENT/PLAN: 1. Pain, dental - ICD9: 525.9, ICD10: K08.89 Appears to have right lower 3rd molar erupting. Continue OTC analgesia. Keep appointment with dentist in 1 week. Seek treatment for dental infection if she has swelling, fever/chills, or foul tasting drainage. Usman Ang, [facility]04-06-2023 History of Present illness Narrative* Usman Ang MD - 05/28/2022 2:00 PM EDT Patient presents with: Dental Problem: Pt reported lower (RT) tooth pain, x3 days. HPI: Dental pain: Duration: 3 days Location: right lower molar Character: pulsing Radiation: No. Aggravating: opening mouth, chewing on that side Relieving: Pain relievers: Motrin Associated: tastes blood sometimes Pertinent negatives: Denies earache, fever, chills, injury MEDICATIONS: lisdexamfetamine (VYVANSE) 10 mg capsule Take 1 capsule by mouth once daily for 30 days. norgestimate 0.25 mg-ethinyl estradiol 35 mcg (SPRINTEC) 0.25-35 mg-mcg per tablet Take 1 tablet bymouth once daily. ALLERGIES: ALLERGIES Allergen Reactions Penicillins Rash Zoloft [Sertraline] Intolerance Difficulty sleeping, restless legs, shaky VITALS: BP 110/64 Pulse 71 Temp 37.1 C (98.8 F) (Tympanic) Resp 16 Wt 46 kg (101 lb 6.4 oz) LMP 05/02/2022 SpO2 100% No BMI 17.96 kg/m PHYSICAL EXAM: GEN: pleasant, no acute distress, alert HEENT: PERRL, EOMI, TMs without erythema or effusion. Moist mucus membranes. No overt cavities or dental fractures right molars. The last 2 teeth are non-tender to palpation. The gingiva behind the right lower 2nd molar is erythematous with maceration. No pain with palpation over the external jaw NECK: supple, no lymphadenopathy, no thyromegaly HEART: regular rate, regular rhythm, no murmurs LUNGS: clear to auscultation, no wheezes or crackles, no increased WOB EXT: no clubbing, no cyanosis, no edema ASSESSMENT/PLAN: 1. Pain, dental - ICD9: 525.9, ICD10: K08.89 Appears to have right lower 3rd molar erupting. Continue OTC analgesia. Keep appointment with dentist in 1 week. Seek treatment for dental infection if she has swelling, fever/chills, or foul tasting drainage. Usman Ang MD documented in this [facility]03-[facility]23 Miscellaneous Notes* Telephone Encounter - Meir Nix APRN.CNP - 05/13/2022 8:12 AM EDT The following approved medication requests have been transmitted electronically. Requested Prescriptions Signed Prescriptions Disp Refills lisdexamfetamine (VYVANSE) 10 mg capsule 30 capsule 0 Sig: Take 1 capsule by mouth once daily for 30 days. Authorizing Provider: MEIR NIX APRN.CNP PDMP website checked and validated. All prescriptions have been APPROPRIATELY filled. No suspiciousactivity was identified. 05/13/2022 by Meir Nix CNP. * Telephone Encounter - Ewelina Hale LPN - 05/12/2022 10:07 AM EDT Patient has been identified by name and date of : Yes Patient phones for refill(s): Requested Prescriptions Pending Prescriptions Disp Refills lisdexamfetamine (VYVANSE) 10 mg capsule 30 capsule 0 Sig: Take 1 capsule by mouth once daily for 30 days. Date of last office visit in primary care: 02/26/2022 Please advise. Thank you. Ewelina Hale LPN documented in this encounterBu[facility]01-05-2023 NoteHNO ID: [id number] Author: Meir Nix APRN.CNP Service: ? Author Type: Nurse Practitioner Type: Progress Notes Filed: 03/02/2022 2:45 PM Note Text: Chief Complaint Patient presents with: Medication Follow-up: Adderall causing headaches BELKYS Silverman is a 21 year old female who presents here today for Above Complaints.. Today: Started having headaches, started the Adderall and control at the same time. Takes control and night and Adderall in late morning/lunch. Headache is an overall ache and then seems to move across the front of her forehead. Has this pretty much every day. Seems to sometimes turn into a migraine and then wanting lights off and silence. Adderall has been helpful, has been calmer, more together. Past medical history, appointments, medications, allergies reviewed. Previous Medical History PAST MEDICAL HISTORY Diagnosis Date Anemia Encounter for supervision of normal in teen primigravida, antepartum 04/05/2018 Hypotension depression 2019 difficulty gaining weight during Seizure (HCC) Had Neuro w/u. Related to Syncope. Last seizure in 2017. Syncope patient states due to hypotension Previous Surgical History PAST SURGICAL HISTORY Procedure Laterality Date NONE Family History FAMILY HISTORY Problem Relation Age of Onset Bipolar disorder Mother no contact with her Bipolar disorder Father was in and out of assisted, of heroin overdose in 01/09 Drug abuse Father Drug abuse Sister is 16 months younger than patient other (borderline personality disorder) Sister ADD/ADHD Sister is age 11 as of 04/25/2019 Heart Attack Maternal Grandmother Thyroid Maternal Grandmother COPD Maternal Grandfather smoker Heart Paternal Grandmother No Known Problems Son other (gastric reflux) Son Patient Allergies ALLERGIES Allergen Reactions Penicillins Rash Zoloft [Sertraline] Intolerance Difficulty sleeping, restless legs, shaky Current Medications Current Outpatient Medications on File Prior to Visit Medication Sig dextroamphetamine-amphetamine (ADDERALL) 10 mg tablet Take 1 tablet by mouth once daily for 30 days. norgestimate 0.25 mg-ethinyl estradiol 35 mcg (SPRINTEC) 0.25-35 mg-mcg per tablet Take 1 tablet by mouth once daily. PNV no.[id number]-[id number] ( GUMMIES) 400 mcg-35 mg- 25 mg-5 mg chew Take 1 tablet by mouth once daily. cyclobenzaprine (FLEXERIL) 5 mg tablet Take 1 tablet by mouth twice daily as needed. (Patient not taking: Reported on 02/26/2022) metoclopramide HCl (REGLAN) 5 mg tablet Take 1 tablet by mouth four times daily. (Patient not taking: No sig reported) famotidine (PEPCID) 20 mg tablet Take 1 tablet by mouth twice daily. (Patient not taking: No sig reported) ferrous sulfate 325 mg (65 mg iron) tablet Take 1 tablet by mouth daily with breakfast. (Patient not taking: No sig reported) ondansetron orally disintegrating (ZOFRAN ODT) 4 mg disintegrating tablet Take 1 tablet by mouth every 8 hours as needed for nausea/vomiting. (Patient not taking: No sig reported) HYDROXYprogest,PF,,preg presv, (YURI, PF,) 275 mg/1.1 mL auto-injector Inject 1.1 mL subcutaneously one time a week for 21 doses. No current facility-administered medications on file prior to visit. Social History Social History Tobacco Use Smoking status: Never Smokeless tobacco: Never Vaping Use Vaping Use: Never used Substance Use Topics Alcohol use: No Drug use: No Review of Symptoms REVIEW OF SYSTEMS See HPI, otherwise negative EXAM: BP 98/60 (BP Site: Left Arm, BP Position: Sitting, BP Cuff Size: Regular Adult) Pulse 78 Resp 16 Wt 47.2 kg (104 lb) LMP 03/07/2021 (Exact Date) SpO2 96% BMI 18.42 kg/m? General Appearance: Well appearing, alert, in no acute distress, well-hydrated, well nourished. and Thin. Lungs: Lungs clear to auscultation. No wheezing, rhonchi, rales.. Heart: RRR without murmur, gallop, or rubs. No ectopy. Health Maintenance List COVID-19 VACCINE(1) Never done MENINGOCOCCAL B: Consider based on risk(1 of 2 - Risk Bexsero 2-dose series) Never done DEPRESSION ASSESSMENT Never done GC (GONORRHEA) SCREENING (18-24) due on 05/01/2022 CHLAMYDIA SCREENING (18-24) due on 05/01/2022 PAP TESTING due on 05/01/2024 DTAP,TDAP,TD(10 - Td or Tdap) due on 09/19/2031 HEPATITIS B Completed HPV VACCINE Completed INFLUENZA Completed HEPATITIS C SCREENING Completed HIV SCREENING Completed Data reviewed See HPI, otherwise negative ASSESSMENT/PLAN: 1. Concentration deficit - ICD9: 799.51, ICD10: R41.840 (primary diagnosis) Had restarted Adderall and OCP at same time, now with headaches. Will hold Adderall x1 month and continue with OCP. If improvement in sx, will restart and cut Adderall dose back to 5mg from 10mg to see if sx arestable with smaller dose of Adderall. 2. Oral contraceptive pill surveilla (more content not included)...[facility]01[facility] History of Present illness Narrative* Meir Nix, KISHORE.GEOSPATIAL EXTRACTOR ANALYSIS - 02/26/2022 2:18 PM EST Chief Complaint Patient presents with: Medication Follow-up: Adderall causing headaches HPI Keshia Silverman is a 21 year old female who presents here today for Above Complaints.. Today: Started having headaches, started the Adderall and control at the same time. Takes control and night and Adderall in late morning/lunch. Headache is an overall ache and then seems to moveacross the front of her forehead. Has this pretty much every day. Seems to sometimes turn into a migraine and then wanting lights off and silence. Adderall has been helpful, has been calmer, more together. Past medical history, appointments, medications, allergies reviewed. Previous Medical History PAST MEDICAL HISTORY Diagnosis Date Anemia Encounter for supervision of normal in teen primigravida, antepartum 04/05/2018 Hypotension depression 2019 difficulty gaining weight during Seizure (HCC) Had Neuro w/u. Related to Syncope. Last seizure in 2017. Syncope patient states due to hypotension Previous Surgical History PAST SURGICAL HISTORY Procedure Laterality Date NONE Family History FAMILY HISTORY Problem Relation Age of Onset Bipolar disorder Mother no contact with her Bipolar disorder Father was in and out of assisted, of heroin overdose in 01/09 Drug abuse Father Drug abuse Sister is 16 months younger than patient other (borderline personality disorder) Sister ADD/ADHD Sister is age 11 as of 04/25/2019 Heart Attack Maternal Grandmother Thyroid Maternal Grandmother COPD Maternal Grandfather smoker Heart Paternal Grandmother No Known Problems Son other (gastric reflux) Son Patient Allergies ALLERGIES Allergen Reactions Penicillins Rash Zoloft [Sertraline] Intolerance Difficulty sleeping, restless legs, shaky Current Medications Current Outpatient Medications on File Prior to Visit Medication Sig dextroamphetamine-amphetamine (ADDERALL) 10 mg tablet Take 1 tablet by mouth once daily for 30 days. norgestimate 0.25 mg-ethinyl estradiol 35 mcg (SPRINTEC) 0.25-35 mg-mcg per tablet Take 1 tablet bymouth once daily. PNV no.[id number]-itin ( GUMMIES) 400 mcg-35 mg- 25 mg-5 mg chew Take 1 tablet by mouth once daily. cyclobenzaprine (FLEXERIL) 5 mg tablet Take 1 tablet by mouth twice daily as needed. (Patient not taking: Reported on 02/26/2022) metoclopramide HCl (REGLAN) 5 mg tablet Take 1 tablet by mouth four times daily. (Patient not taking: No sig reported) famotidine (PEPCID) 20 mg tablet Take 1 tablet by mouth twice daily. (Patient not taking: No sig reported) ferrous sulfate 325 mg (65 mg iron) tablet Take 1 tablet by mouth daily with breakfast. (Patient not taking: No sig reported) ondansetron orally disintegrating (ZOFRAN ODT) 4 mg disintegrating tablet Take 1 tablet by mouth every 8 hours as needed for nausea/vomiting. (Patient not taking: No sig reported) HYDROXYprogest,PF,,preg presv, (YURI, PF,) 275 mg/1.1 mL auto-injector Inject 1.1 mL subcutaneously one time a week for 21 doses. No current facility-administered medications on file prior to visit. Social History Social History Tobacco Use Smoking status: Never Smokeless tobacco: Never Vaping Use Vaping Use: Never used Substance Use Topics Alcohol use: No Drug use: No Review of Symptoms REVIEW OF SYSTEMS See HPI, otherwise negative EXAM: BP 98/60 (BP Site: Left Arm, BP Position: Sitting, BP Cuff Size: Regular Adult) Pulse 78 Resp 16 Wt 47.2 kg (104 lb) LMP 03/07/2021 (Exact Date) SpO2 96% BMI 18.42 kg/m General Appearance: Well appearing, alert, in no acute distress, well-hydrated, well nourished. andThin. Lungs: Lungs clear to auscultation. No wheezing, rhonchi, rales.. Heart: RRR without murmur, gallop, or rubs. No ectopy. Health Maintenance List COVID-19 VACCINE(1) Never done MENINGOCOCCAL B: Consider based on risk(1 of 2 - Risk Bexsero 2-dose series) Never done DEPRESSION ASSESSMENT Never done GC (GONORRHEA) SCREENING (18-24) due on 05/01/2022 CHLAMYDIA SCREENING (18-24) due on 05/01/2022 PAP TESTING due on 05/01/2024 DTAP,TDAP,TD(10 - Td or Tdap) due on 09/19/2031 HEPATITIS B Completed HPV VACCINE Completed INFLUENZA Completed HEPATITIS C SCREENING Completed HIV SCREENING Completed Data reviewed See HPI, otherwise negative ASSESSMENT/PLAN: 1. Concentration deficit - ICD9: 799.51, ICD10: R41.840 (primary diagnosis) Had restarted Adderall and OCP at same time, now with headaches. Will hold Adderall x1 month and continue with OCP. If improvement in sx, will restart and cut Adderall dose back to 5mg from 10mg to see if sx arestable with smaller dose of Adderall. 2. Oral contraceptive pill surveillance - ICD9: V25.41, ICD10: Z30.41 Had restarted Adderall and OCP at same time, now with headaches. Will hold Adderall x1 month and continue with OCP. If improvement in sx, will restart and cut Adderall dose back to 5mg from 10mg to see if sx arestable with smaller dose of Adderall. Meir Nix APRN.DELPHINE documented in this encounterBu[facility]12-[facility]-2022 NoteHNO ID: [id number] Author: Meir Nix APRN.DELPHINE Service: ? Author Type: Nurse Practitioner Type: Progress Notes Filed: 01/26/2022 1:18 PM Note Text: Chief Complaint Patient presents with: Care: 2 months , Was on ADHD medicine x year ago AND would like to restart rx. Stopped 1 month ago. HPI Keshia Silverman is a 21 year old female who presents here today for Above Complaints. Today: Prior to was on ADD medication and doing well with this medication. It helped her with organization, completing tasks. She feels that she would like to restart on this medication. Tolerated it well in the past. Is not . Past medical history, appointments, medications, allergies reviewed. Previous Medical History PAST MEDICAL HISTORY Diagnosis Date Anemia Encounter for supervision of normal in teen primigravida, antepartum 04/05/2018 Hypotension depression 2019 difficulty gaining weight during Seizure (HCC) Had Neuro w/u. Related to Syncope. Last seizure in 2017. Syncope patient states due to hypotension Previous Surgical History PAST SURGICAL HISTORY Procedure Laterality Date NONE Family History FAMILY HISTORY Problem Relation Age of Onset Bipolar disorder Mother no contact with her Bipolar disorder Father was in and out of assisted, of heroin overdose in 01/09 Drug abuse Father Drug abuse Sister is 16 months younger than patient other (borderline personality disorder) Sister ADD/ADHD Sister is age 11 as of 04/25/2019 Heart Attack Maternal Grandmother Thyroid Maternal Grandmother COPD Maternal Grandfather smoker Heart Paternal Grandmother No Known Problems Son other (gastric reflux) Son Patient Allergies ALLERGIES Allergen Reactions Penicillins Rash Zoloft [Sertraline] Intolerance Difficulty sleeping, restless legs, shaky Current Medications Current Outpatient Medications on File Prior to Visit Medication Sig PNV no.[id number]-xra-lrar ( GUMMIES) 400 mcg-35 mg- 25 mg-5 mg chew Take 1 tablet by mouth once daily. cyclobenzaprine (FLEXERIL) 5 mg tablet Take 1 tablet by mouth twice daily as needed. (Patient not taking: No sig reported) metoclopramide HCl (REGLAN) 5 mg tablet Take 1 tablet by mouth four times daily. (Patient not taking: No sig reported) famotidine (PEPCID) 20 mg tablet Take 1 tablet by mouth twice daily. (Patient not taking: No sig reported) ferrous sulfate 325 mg (65 mg iron) tablet Take 1 tablet by mouth daily with breakfast. (Patient not taking: No sig reported) ondansetron orally disintegrating (ZOFRAN ODT) 4 mg disintegrating tablet Take 1 tablet by mouth every 8 hours as needed for nausea/vomiting. (Patient not taking: No sig reported) HYDROXYprogest,PF,,preg presv, (YURI, PF,) 275 mg/1.1 mL auto-injector Inject 1.1 mL subcutaneously one time a week for 21 doses. No current facility-administered medications on file prior to visit. Social History Social History Tobacco Use Smoking status: Never Smokeless tobacco: Never Vaping Use Vaping Use: Never used Substance Use Topics Alcohol use: No Drug use: No Review of Symptoms REVIEW OF SYSTEMS See HPI, otherwise negative EXAM: Resp 16 Wt 51.9 kg (114 lb 6.4 oz) LMP 03/07/2021 (Exact Date) SpO2 98% No BMI 20.27 kg/m? General Appearance: Well appearing, alert, in no acute distress, well-hydrated, well nourished. and Thin. Lungs: Lungs clear to auscultation. No wheezing, rhonchi, rales.. Heart: RRR without murmur, gallop, or rubs. No ectopy. Health Maintenance List COVID-19 VACCINE(1) Never done MENINGOCOCCAL B: Consider based on risk(1 of 2 - Risk Bexsero 2-dose series) Never done DEPRESSION ASSESSMENT Never done GC (GONORRHEA) SCREENING (18-24) due on 05/01/2022 CHLAMYDIA SCREENING (18-24) due on 05/01/2022 PAP TESTING due on 05/01/2024 DTAP,TDAP,TD(10 - Td or Tdap) due on 09/19/2031 HEPATITIS B Completed HPV VACCINE Completed INFLUENZA Completed HEPATITIS C SCREENING Completed HIV SCREENING Completed Data reviewed Previous records, office notes, OARRS report ASSESSMENT/PLAN: 1. Concentration deficit - ICD9: 799.51, ICD10: R41.840 (primary diagnosis) Restart Adderall at 10mg daily. Follow up in 1 month. - DEXTROAMPHETAMINE-AMPHETAMINE 10 MG TABLET 2. Encounter for initial prescription of contraceptive pills - ICD9: V25.01, ICD10: Z30.011 Restart oral contraception-tolerated well in the past. - NORGESTIMATE 0.25 MG-ETHINYL ESTRADIOL 35 MCG TABLET Meir Nix APRN.CNP PDMP website checked and validated. All prescriptions have been APPROPRIATELY filled. No suspicious activity was identified. 01/26/2022 by Meir Nix CNP.[facility]11-02-2022 Instructions* Patient Instructions* Pam Yarbrough APRN.CNM - 12/24/2021 9:28 AM EDT Here are some links for wonderful Providers here in the community and surrounding areas. Do not hesitate to contact their offices, many are offering virtual visits during this time. 0-109-6-OSEZ4FLMZ - [place] Maternal Mental Health Hotline If you are in suicidal crisis, please call or text 0-874-368-TALK ( ) or visit the National Suicide Prevention Lifeline website. mchb.[facility].gov [facility] Psychology, Psychiatry, Counseling Connect with therapist/ can do virtual visits [phone] Referral to the [facility] To schedule an appointment, please call the [place] for Behavioral Health Appointment Line: [phone] option 1 [facility] - [place], [place] [address] [place] [address] [facility] [address] [place] [address] [facility] [address] [place] [address] [facility] [address] [place], [place] [id number] Christiano Huffman MD [address] [place], [place] [id number] [facility] [address], [address] [place] [address] [facility] [address] [place] [address] [facility] [place] [phone]/ [phone] Mary Ellen Jaimes [address] [facility] [phone] [facility] [place] / [place] [phone] Behavioral health services of pending sale to [facility] [address] [place] [address]/ [facility] [phone] Rashad Guzman, NAYA, [facility] Therapy Workshops, telehealth and at home visits. [phone] Humanistic counseling center 20 locations [place], [place], [place], [place], [place], [place], [place], [facility], [place], [place], [place], [place], [place], [place], [place], [facility], [place], [place] ,[facility], [place], [place],[facility], [facility], [place], [facility], [place] mor[place] www.[employer] [phone] Psychotherapy resources outside of [facility] are listed below [facility] Space Psychotherapy Web: https://www.Swivelcle.Shogether/ Support International Online Provider Directory https://Sonics/ [facility] https://ActX/ Partners [facility] and Wellness Web: https://Brandizi/ [employer] for Effective Living Web: https://Crzyfishliving.Shogether/ LifeStance Web: https://Stax Networks.Shogether/location/state[place]/ [facility] Web: https://www.[facility].org/ [facility] Web: https://Sicubo.AppEnsure/ Recovery Resources Mental health and substance abuse help Web: https://www.Your Policy Managers.AppEnsure & RESOURCES Support International Direct peer support and connection to professional resources Non-Emergency Helpline Phone: / Text: [phone] Web: https://www..net/ Online Provider Directory: https://Sonics/ Online Support Meetings: https://www..net/get-help/wuz-sqoalr-dzilpsi-meetings/ KASEY Baby and Pricing Director Services Web: https://wwwFruitfulll/ MotherToOptensity Expert information on medication use during and Text: [phone] Web: https://MedImpact Healthcare Systems/ NATIONAL REGISTRY FOR PSYCHIATRIC MEDICATIONS Currently studying the safety of antidepressants, ADHD medications and atypical antipsychotics taken during TO PARTICIPATE CALL TOLL-FREE: Web: https://womensmentalhealth.org/research/pregnancyregistry/ Support Groups: [facility]- Follow on facebook Baby Bistro support group led by [facility] department Resilient Mamas - Support Group [facility].org The POEM support group [phone] Www.poFitVialine.org Follow on facebook - THERESE [facility] Online support meetings PSI https://www..net/get-help/zlw-ckybqz-djvjcyx-meetings/ [facility] mommy and me virtual support group 11:30-1pm Support for mothers and new babies and toddlers [place] childbirth education: Childbirth @[facility].org or call [phone] CRISIS: CRISIS HOTLINE [phone], 911 or go to the nearest ER. [facility] [phone] / [facility] [phone] https://www.u.[facility].org Crisis text line text the word HOME to [id number] documented in this encounterBu[facility]11-02-[facility]22 History of Present illness Narrative* Pam Yarbrough APRN.CNM - 12/24/2021 9:04 AM EDT VISIT eKshia Silverman is a 21 year old year old here for visit. Delivery Summary: Patient delivered via by Pam Yarbrough on 11/14/21 at [facility] ROS/ Recovery: Feeding: Breast feeding problems: None Menses since delivery: none Menstrual pattern prior to : Regular periods [place] since delivery: Not resumed Depression: denies symptoms of depression. OB Depression and Anxiety Screening- This Encounter (since 12/23/2021) Over the past 2 weeks have you felt down, depressed, or hopeless? Negative Over the past two weeks, have you felt little interest or pleasure in doing things? Negative Feeling nervous, anxious or on edge 1-Several days Not being able to stop or control worrying 1-Several days Anxiety Pre-Screening Total (If >/= 3 additional questions will be reviewed) 2 Emotional support: Yes Bowel symptoms: Negative for abdominal discomfort, blood in stools or black stools and change in bowel habits Abdomen: N/A Bladder symptoms: No dysuria, gross hematuria, urinary frequency, urinary urgency, or incontinence Other issues: Anxiety- feeling anxious with others holding and caring for infant. Does not like to leave with any other family members. Feels like she is getting more relaxed. Last Pap: 2021 normal HPV: negative PAST MEDICAL HISTORY Diagnosis Date Anemia Encounter for supervision of normal in teen primigravida, antepartum 04/05/2018 Hypotension depression 2019 difficulty gaining weight during Seizure (HCC) Had Neuro w/u. Related to Syncope. Last seizure in 2016. Syncope patient states due to hypotension PAST SURGICAL HISTORY Procedure Laterality Date NONE FAMILY HISTORY Problem Relation Age of Onset Bipolar disorder Mother no contact with her Bipolar disorder Father was in and out of assisted, of heroin overdose in 01/09 Drug abuse Father Drug abuse Sister is 16 months younger than patient other (borderline personality disorder) Sister ADD/ADHD Sister is age 11 as of 04/25/2019 Heart Attack Maternal Grandmother Thyroid Maternal Grandmother COPD Maternal Grandfather smoker Heart Paternal Grandmother No Known Problems Son other (gastric reflux) Son Social History Tobacco Use Smoking status: Never Smokeless tobacco: Never Vaping Use Vaping Use: Never used Substance Use Topics Alcohol use: No Drug use: No PHYSICAL EXAMINATION: BP 98/60 Wt 112 lb 3.2 oz (50.9kg) LMP 03/07/2021 GENERAL: pleasant, female in no apparent distress HEENT: Normocephalic, atraumatic, mucus membranes moist, and no lesions NECK: Supple and full range of motion DERMATOLOGY: Normal, without lesions, non-icteric, and non-hirsute BREAST: soft, non-tender, symmetric, no dominant mass, normal nipple-areolar complex, no lymphadenopathy, and no nipple discharge CHEST: Normal inspiratory effort ABDOMEN: soft, non-tender, and no masses. INCISION: N/A PELVIC: external genitalia normal, normal Bartholin's glands, urethra, [place]'s glands, no vulvar lesions, no cervical lesions, good vaginal support, physiologic discharge present, normal appearing perineal body and perianal region BIMANUAL: uterus normal size, shape and consistency, no adnexal masses, and non-tender NEURO: alert and oriented x3,exam grossly non-focal EXTREMITIES: normal ASSESSMENT AND PLAN: 21 year old status post with normal course. Contraception plan: tubal ligation- or Mirena IUD- briefly reviewed both options and hand out provided. Patient to make appointment once she makes final decision. Follow up: For insertion of IUD or consult for tubal ligation - Hand out provided for counseling services- patient to follow up with post groups/counseling - Patient to contact office if feels anxiety is worsening - Denies any feelings of depression- SI or HI RTO - as needed and for annual exams Pam Yarbrough APRN.CNM documented in this encounterBu[facility]09-26-[facility]22 History of Present illness Narrative* Huong Hagen RN - 11/17/2021 10:52 AM EDT Patient delivered via by Dorcas on 11/14/21 at [facility]. See OB history. Huong Hagen RN documented in this encounterBucyrus [facility] Hospital09-23-2022 Miscellaneous Notes* Telephone Encounter - Huong Haegn RN - 11/14/2021 9:13 AM EDT Patient now had iron studies done. Blood management referral was previously placed. Huong Hagen RN * Telephone Encounter - Huong Hagen RN - 11/11/2021 9:15 AM EDT 35w4d Patient notified and plans to get iron studies done today. Will forward message to blood managementonce results are completed to expedite since patient is already 35 weeks gestation. Huong Hagen RN * Telephone Encounter - Huong Hagen RN - 11/11/2021 9:14 AM EDT ----- Message from Pam Yarbrough APRN.CNM sent at 11/11/2021 8:47 AM EDT ----- Results reviewed. Hemoglobin down to 9.7 from 10.9 despite taking oral iron. Referral to blood management and iron studies ordered. Please notify patient. Pam Yarbrough APRN.CNM documented in this encounterBucyrus [facility] Hospital09-22-2022 Miscellaneous Notes* Addendum Note - Yuliana Carlos MD - 11/13/2021 11:17 AM EDTAddended by: YULIANA CARLOS on: 11/13/2021 11:17 AM Modules accepted: Orders * Addendum Note - Joanne Noguera Ma - 11/13/2021 10:05 AM EDTAddended by: JOANNE NOGUERA MA on: 11/13/2021 10:05 AM Modules accepted: Orders * Quick Notes - Yuliana Carlos MD - 11/13/2021 9:55 AM EDT SW- No regular ctx, vb, lof. Good FM. Having off and on REYNA's. No visual changes. PE: Gen- NAD, well appearing Abd- Soft, gravid, NT Ext- No edema See flowsheet A/p 35 wk gestation - Discussed warning signs and symptoms of pre e - IUGR: BPP 8/8 and BRIANNA 12. Cont weekly BPP. Delivery 38-39 weeks - Anemia: Blood work today. Cont iron. May need IV iron - GBS today - 1/t/-1 - Weekly visits Yuliana Carlos DO documented in this encounterBucyrus [facility] Hospital09-22-2022 Instructions* Patient Instructions* Joanne Noguera Ma - 11/13/2021 9:25 AM EDT SEQUENTIAL SCREENINGS [facility] offers sequential screenings for women who are interested in screenings for chromosomal abnormalities and certain defects during a . The sequential screen combinesultrasound and blood tests to determine the risk of chromosomal abnormalities, including Down's Syndrome (Trisomy 21) and Trisomy 18, as well as open neural tube defects including spina bifida. Ultrasound examination is performed between 11 weeks and 13 weeks gestational age. Blood tests are drawn after the ultrasound and again later in the between 15 and 21 weeks gestational age. Please let your physician know if you are interested in this testing. It will require an appointment withour vacuum technician. This is not an ultrasound performed by a physician in our office during a routine visit. SIGNS AND SYMPTOMS OF LABOR 1. Contractions every 10 minutes or more often 2. Clear, pink, or brownish fluid (water) leaking from vagina 3. Feeling that baby is pushing down, pressure 4. Low, dull backache 5. Cramps that feel like a period 6. Cramps with or without diarrhea If you notice any of the above symptoms, contact our office at [phone] and ask to speak with anurse. After hours, you can call doctors registry at [phone] OR call [facility] at [phone] ask to have the doctor manager retention paged. If you consider this an emergency, dial 91-4 or go to your nearest emergency department. NEED HELP? Are you dealing with a violent or abusive relationship? Are you a victim of rape or sexual assult? Call [facility] ([place]) 24 hour Crisis Hotline: 933.282.5852 or 146-397-3084. MANUAL Your Guide to a Healthy manual is now on-line. Visit [email or web address] to download your free copy documented in this encounterBucyrus Community Hospital09-19-2022 Miscellaneous Notes* Telephone Encounter - Bozena Anderson RN - 11/10/2021 12:40 PM EDT Attempted to contact patient but no answer and unable to leave a message as voicemail box is full. Will attempt to contact patient again. MyChart message also sent. Bozena Anderson RN * Telephone Encounter - Alejandra Perdomo APRN.CNM - 11/10/2021 12:36 PM EDT Please have patient come for appointment at 2:15. Thank you, Alejandra Perdomo APRN.CNM * Telephone Encounter - Bozena Anderson RN - 11/10/2021 9:31 AM EDT Patient 35w3d calling with complaints of constant throbbing headache since last night. Patient states she has tried Tylenol and drink with caffeine and nothing is helping. Patient states she has also had some constant pressure in her low back. Denies any decreased movement, bleeding, leaking, dysuria, urinary urgency/frequency or cramping. Bozena Anderson RN documented in this encounterBucyrus Community Hospital09-15-2022 History of Present illness Narrative* Kimani Núñez MD - 11/06/2021 12:39 PM EDT NST SUMMARY PROVIDER ASSESSMENT AND INTERPRETATION Keshia Silverman is a 21 year old female, , who is at 34w6d with an CHRIS of 12/12/2021, by Last Menstrual Period dating method. Indications for NST: IUGR, BPP 07/30 Baseline: 130 Variability: Moderate Accelerations: Present 15 X 15 Decelerations: Variable Contractions: TOCO: Irregular Interpretation: Reactive SIGNATURE: Kimani Núñez MD documented in this encounterBucyrus Community Hospital09-08-2022 Miscellaneous Notes* Quick Notes - Pam Yarbrough APRN.CNM - 10/30/2021 9:34 AM EDT S: Keshia Silverman is a 21 year old female who presents at 33.6 weeks gestation for a routine visit. Just completed BPP- 09/29, BRIANNA 14. Positive movement. Denies any contractions- just feels tightening at times. Denies headache, visual changes, chest pain, shortness of breath, vaginal bleeding, leakage of fluid, or dysuria. Feeling well, no complaints. O: See flow sheet Gen: No apparent distress Abd: Gravid, nontender ASSESSMENT/PLAN: 1. 33 weeks gestation of - ICD9: V22.2, ICD10: Z3A.33 (primary diagnosis) 2. Supervision of high risk in third trimester - ICD9: V23.9, ICD10: O09.93 - Continue weekly [place] injections P: 1) PTL precautions reviewed and when to call 2) RTO 2 weeks or sooner if needed Pam Yarbrough APRN.CNM documented in this encounterBucyrus Community Hospital09-08-2022 Instructions* Patient Instructions* Ev Rivero MA - 10/30/2021 9:22 AM EDT SEQUENTIAL SCREENINGS [facility] offers sequential screenings for women who are interested in screenings for chromosomal abnormalities and certain defects during a . The sequential screen combinesultrasound and blood tests to determine the risk of chromosomal abnormalities, including Down's Syndrome (Trisomy 21) and Trisomy 18, as well as open neural tube defects including spina bifida. Ultrasound examination is performed between 11 weeks and 13 weeks gestational age. Blood tests are drawn after the ultrasound and again later in the between 15 and 21 weeks gestational age. Please let your physician know if you are interested in this testing. It will require an appointment withour vacuum technician. This is not an ultrasound performed by a physician in our office during a routine visit. SIGNS AND SYMPTOMS OF LABOR 1. Contractions every 10 minutes or more often 2. Clear, pink, or brownish fluid (water) leaking from vagina 3. Feeling that baby is pushing down, pressure 4. Low, dull backache 5. Cramps that feel like a period 6. Cramps with or without diarrhea If you notice any of the above symptoms, contact our office at [phone] and ask to speak with anurse. After hours, you can call doctors registry at [phone] OR call [facility] at [phone] ask to have the doctor manager retention paged. If you consider this an emergency, dial 9- or go to your nearest emergency department. NEED HELP? Are you dealing with a violent or abusive relationship? Are you a victim of rape or sexual assult? Call [facility] ([place]) 24 hour Crisis Hotline: 565.447.4983 or 184-590-9673. MANUAL Your Guide to a Healthy manual is now on-line. Visit [email or web address] to download your free copy documented in this encounterBucyrus Community Hospital08-25-2022 Miscellaneous Notes* Quick Notes - Kimani Núñez MD - 10/16/2021 9:58 AM EDT KJ - VB No. LOF No. CTXS No. Movement: present. Other c/o: No. Medication list reviewed. Physical Exam See Flow Sheet Gen: no accute distress, well appearing Abd: soft, nontender, gravid A/P 31w6d Estimated Date of Delivery: 12/12/21 IUGR - 7% on US today, await formal recs from [facility] but follow up US ordered. H/o PTD - continue [place] Anemia - encouraged Fe & Regular PNV use PTL precautions reviewed, Kick counts reviewed. Kimani Núñez MD documented in this encounterBucyrus Community Hospital08-25-2022 Instructions* Patient Instructions* Opal Hughes Ma - 10/16/2021 9:09 AM EDT SEQUENTIAL SCREENINGS [facility] offers sequential screenings for women who are interested in screenings for chromosomal abnormalities and certain defects during a . The sequential screen combinesultrasound and blood tests to determine the risk of chromosomal abnormalities, including Down's Syndrome (Trisomy 21) and Trisomy 18, as well as open neural tube defects including spina bifida. Ultrasound examination is performed between 11 weeks and 13 weeks gestational age. Blood tests are drawn after the ultrasound and again later in the between 15 and 21 weeks gestational age. Please let your physician know if you are interested in this testing. It will require an appointment withour vacuum technician. This is not an ultrasound performed by a physician in our office during a routine visit. SIGNS AND SYMPTOMS OF LABOR 1. Contractions every 10 minutes or more often 2. Clear, pink, or brownish fluid (water) leaking from vagina 3. Feeling that baby is pushing down, pressure 4. Low, dull backache 5. Cramps that feel like a period 6. Cramps with or without diarrhea If you notice any of the above symptoms, contact our office at [phone] and ask to speak with anurse. After hours, you can call doctors registry at [phone] OR call [facility] at [phone] ask to have the doctor manager retention paged. If you consider this an emergency, dial -9 or go to your nearest emergency department. NEED HELP? Are you dealing with a violent or abusive relationship? Are you a victim of rape or sexual assult? Call [facility] ([place]) 24 hour Crisis Hotline: 294.184.3182 or 742-813-8793. MANUAL Your Guide to a Healthy manual is now on-line. Visit [email or web address] to download your free copy documented in this encounterBucyrus Community Hospital08-11-2022 Miscellaneous Notes* Quick Notes - Pam Yarbrough APRN.CNM - 10/02/2021 9:29 AM EDT S: Keshia Silverman is a 21 year old female who presents at 29.6 weeks gestation for a routine visit. Increasing daily heartburn with minimal relief from TUMS. Thinks allergies are worsening and has mildheadaches- not taking any medications. Reviewed medications safe in with patient. Denies visual changes, chest pain, shortness of breath, vaginal bleeding, leakage of fluid, or dysuria. Taking oral iron every other day and still receiving Yuri injections weekly. O: See flow sheet Gen: No apparent distress Abd: Gravid, nontender S<D Measuring 2 weeks behind ASSESSMENT/PLAN: 1. 29 weeks gestation of - ICD9: V22.2, ICD10: Z3A.29 (primary diagnosis) - URINE OB DIP B/O 2. Anemia complicating , third trimester - ICD9: 648.23, 285.9, ICD10: O99.013 - Continue oral iron - Repeat CBC + DIFF next visit 3. Heartburn during in third trimester - ICD9: 646.83, 787.1, ICD10: O26.893, R12 - Pepcid 20 mg PO BID for heartburn 4. Uterine size-date discrepancy, third trimester - ICD9: 649.63, ICD10: O26.843 - Growth US ordered for next visit PTL precautions and kick counts reviewed. RTO- 2 weeks or sooner if needed Pam Yarbrough APRN.CNM documented in this encounterBucyrus Community Hospital08-11-2022 Instructions* Patient Instructions* Pam Yarbrough APRN.CNM - 10/02/2021 9:18 AM EDT Zyrtec 10 mg PO daily or Claritin daily for allergies SEQUENTIAL SCREENINGS [facility] offers sequential screenings for women who are interested in screenings for chromosomal abnormalities and certain defects during a . The sequential screen combinesultrasound and blood tests to determine the risk of chromosomal abnormalities, including Down's Syndrome (Trisomy 21) and Trisomy 18, as well as open neural tube defects including spina bifida. Ultrasound examination is performed between 11 weeks and 13 weeks gestational age. Blood tests are drawn after the ultrasound and again later in the between 15 and 21 weeks gestational age. Please let your physician know if you are interested in this testing. It will require an appointment withour vacuum technician. This is not an ultrasound performed by a physician in our office during a routine visit. SIGNS AND SYMPTOMS OF LABOR 1. Contractions every 10 minutes or more often 2. Clear, pink, or brownish fluid (water) leaking from vagina 3. Feeling that baby is pushing down, pressure 4. Low, dull backache 5. Cramps that feel like a period 6. Cramps with or without diarrhea If you notice any of the above symptoms, contact our office at [phone] and ask to speak with anurse. After hours, you can call [facility] at [phone] OR call [facility] at [phone] ask to have the doctor manager retention paged. If you consider this an emergency, dial 9-1-1 or go to your nearest emergency department. NEED HELP? Are you dealing with a violent or abusive relationship? Are you a victim of rape or sexual assult? Call [facility] ([place]) 24 hour Crisis Hotline: 757.252.6615 or 721-804-7947. MANUAL Your Guide to a Healthy manual is now on-line. Visit [email or web address] to download your free copy documented in this encounterBucyrus Community Hospital08-02-2022 Miscellaneous Notes* Telephone Encounter - Abigail Jurado RN - 09/23/2021 4:42 PM EDT 28w4d Patient with hx of labor calling with c/o period like cramps for the past day and a half. Intermittent. Unable to give a number on pain scale. Uncomfortable. More uncomfortable at night. Has tried Tylenol and warm baths with minimal relief. Today, she took it easy at work and drank plenty of fluids. Denies urinary issues, LOF , or VB. Spoke with provider manager retention, VERÓNICA. Patient was advised that she could go to L&D for reassurance if she wanted. Patient states getting evaluated would make her feel better. Updated H&P sent to L&D and notified. Abigail Jurado RN documented in this encounterBucyrus Community Hospital07-28-2022 Miscellaneous Notes* Quick Notes - Yuliana Carlos MD - 09/18/2021 11:21 AM EDT SW- No ctx, vb, lof. Good FM. PE: Gen- NAD, well appearing Abd- Soft, gravid, NT Ext- No edema See flowsheet A/p 27 wk gestation - Desires sterilization. Title 19 signed today - 28 wk labs today - Tdap today - LARD signed - Growth US for S<D - RTO 2 wks Yuliana Carlos DO documented in this encounterBucyrus Community Hospital07-28-2022 History of Present illness Narrative* Joanne Noguera Ma - 09/18/2021 11:12 AM EDT Patient identified by name and date of . Keshia Silverman presents today for a vaccination of Tdap. Patient denies an allergy to latex: yes Patient denies a severe (life-threatening) allergy to a previous dose of Tdap, DTP, DTaP, DT or Td vaccine. Yes Patient denies history of epilepsy or neurological problems: Yes Patient is afebrile and denies being moderately or severely ill: Yes Patient denies history of Guillain-Hanover Syndrome (a severe paralytic illness): Yes Tdap Adacel injection was given without incident. See immunizations for details of immunizations administered today. VIS sheet provided: Yes Provider Dr Carlos was present in office at time of injection. Joanne Noguera Ma documented in this encounterBucyrus Community Hospital07-28-2022 Instructions* Patient Instructions* Joanne Noguera Ma - 09/18/2021 10:52 AM EDT SEQUENTIAL SCREENINGS [facility] offers sequential screenings for women who are interested in screenings for chromosomal abnormalities and certain defects during a . The sequential screen combinesultrasound and blood tests to determine the risk of chromosomal abnormalities, including Down's Syndrome (Trisomy 21) and Trisomy 18, as well as open neural tube defects including spina bifida. Ultrasound examination is performed between 11 weeks and 13 weeks gestational age. Blood tests are drawn after the ultrasound and again later in the between 15 and 21 weeks gestational age. Please let your physician know if you are interested in this testing. It will require an appointment withour vacuum technician. This is not an ultrasound performed by a physician in our office during a routine visit. SIGNS AND SYMPTOMS OF LABOR 1. Contractions every 10 minutes or more often 2. Clear, pink, or brownish fluid (water) leaking from vagina 3. Feeling that baby is pushing down, pressure 4. Low, dull backache 5. Cramps that feel like a period 6. Cramps with or without diarrhea If you notice any of the above symptoms, contact our office at [phone] and ask to speak with anurse. After hours, you can call doctors registry at [phone] OR call [facility] at [phone] ask to have the doctor manager retention paged. If you consider this an emergency, dial 9-1-4 or go to your nearest emergency department. NEED HELP? Are you dealing with a violent or abusive relationship? Are you a victim of rape or sexual assult? Call [facility] ([place]) 24 hour Crisis Hotline: 607.916.6024 or 006-348-6878. MANUAL Your Guide to a Healthy manual is now on-line. Visit [email or web address] to download your free copy documented in this encounterBucyrus Community Hospital06-30-2022 History of Past illness Narrative* Problem Noted Date Resolved Date Poor growth affecting management of mother in third trimester 08/21/2021 07/10/2022 Overview: EFW 6% at 34 weeks. Weekly BPP's. Delivery 38-39 weeks. SW 08/21/21- 23.6 weeks gestation. Measuring 3 weeks behind- will continue to monitor. Pam Yarbrough APRN.EVA Subchorionic hematoma in first trimester 022 07/10/2022 Overview: 05/09/21- visualized on TAUS. Pam Yarbrough APRN.CNM on oral contraceptive 04/29/2021 07/10/2022 Overview: 04/29/2021This is an unplanned . Patient was on control pills. She states I am nervous about the because having 3 children is a lot. She plans on keeping the baby. Father of the baby is involved. He is the father of her other children. TKRN Elevated glucose 06/21/2020 05/01/2021 Overview: 06/27/20- 3 hour GTT normal. Pam Yarbrough APRN.CNM 06/21/20- Elevated 1 hour at 151. 3 hour ordered. Pam Yarbrough APRN.CNM History of hypotension 01/25/2020 Overview: 02/02/2020 Pt has followed up with PCP. Instructed to increase salt intake. SW 01/25/2020Patient was seen by Dr Carlos 01/11 to discuss medications for low blood pressure. She states she was having syncope from low blood pressure. TKRN Uterine size-date discrepancy, third trimester 0 04/19/2018 02/02/2020 Overview: 04/19/18-Growth U/S at 31w6d, AGA, BRIANNA 12.8, 21st percentile. Will continue to watch fundal height. Consider growth U/S closer to 39 weeks. Alejandra Perdomo APRN.CNM Encounter for supervision of normal in teen primigravida, antepartum 04/05/2018 08/01/2020 documented as of this encounter (statuses as of 08/05/2022) [facility] History of Past illness Narrative* Problem Noted Date Resolved Date Poor growth affecting management of mother in third trimester 08/21/2021 07/10/2022 Overview: EFW 6% at 34 weeks. Weekly BPP's. Delivery 38-39 weeks. 08/21/21- 23.6 weeks gestation. Measuring 3 weeks behind- will continue to monitor. Pam Yarbrough APRN.CNM Subchorionic hematoma in first trimester 022 07/10/2022 Overview: 05/09/21- visualized on TAUS. Pam Yarbrough APRN.CNM on oral contraceptive 04/29/2021 07/10/2022 Overview: 04/29/2021This is an unplanned . Patient was on control pills. She states I am nervous about the because having 3 children is a lot. She plans on keeping the baby. Father of the baby is involved. He is the father of her other children. TKRN Elevated glucose 06/21/2020 05/01/2021 Overview: 06/27/20- 3 hour GTT normal. Pam Yarbrough APRN.CNM 06/21/20- Elevated 1 hour at 151. 3 hour ordered. Pam Yarbrough APRN.CNM History of hypotension 01/25/2020 Overview: 02/02/2020 Pt has followed up with PCP. Instructed to increase salt intake. SW 01/25/2020Patient was seen by Dr Carlos 01/11 to discuss medications for low blood pressure. She states she was having syncope from low blood pressure. TKRN Uterine size-date discrepancy, third trimester 0 04/19/2018 02/02/2020 Overview: 04/19/18-Growth U/S at 31w6d, AGA, BRIANNA 12.8, 21st percentile. Will continue to watch fundal height. Consider growth U/S closer to 39 weeks. Alejandra Perdomo APRN.CNM Encounter for supervision of normal in teen primigravida, antepartum 04/05/2018 08/01/2020 documented as of this encounter (statuses as of 08/12/2022) [facility] History of Past illness Narrative* Problem Noted Date Resolved Date Poor growth affecting management of mother in third trimester 08/21/2021 07/10/2022 Overview: EFW 6% at 34 weeks. Weekly BPP's. Delivery 38-39 weeks. SW 08/21/21- 23.6 weeks gestation. Measuring 3 weeks behind- will continue to monitor. Pam Yarbrough APRN.CNM Subchorionic hematoma in first trimester 022 07/10/2022 Overview: 05/09/21- visualized on TAUS. Pam Yarbrough APRN.CNM on oral contraceptive 04/29/2021 07/10/2022 Overview: 04/29/2021This is an unplanned . Patient was on control pills. She states I am nervous about the because having 3 children is a lot. She plans on keeping the baby. Father of the baby is involved. He is the father of her other children. TKRN Elevated glucose 06/21/2020 05/01/2021 Overview: 06/27/20- 3 hour GTT normal. Pam Yarbrough APRN.CNM 06/21/20- Elevated 1 hour at 151. 3 hour ordered. Pam Yarbrough APRN.CNM History of hypotension 01/25/2020 Overview: 02/02/2020 Pt has followed up with PCP. Instructed to increase salt intake. 01/25/2020Patient was seen by Dr Carlos 01/11 to discuss medications for low blood pressure. She states she was having syncope from low blood pressure. TKRN Uterine size-date discrepancy, third trimester 0 04/19/2018 02/02/2020 Overview: 04/19/18-Growth U/S at 31w6d, AGA, BRIANNA 12.8, 21st percentile. Will continue to watch fundal height. Consider growth U/S closer to 39 weeks. Alejandra Perdomo APRN.CNM Encounter for supervision of normal in teen primigravida, antepartum 04/05/2018 08/01/2020 documented as of this encounter (statuses as of 08/27/2022) [facility] History of Past illness Narrative* Problem Noted Date Resolved Date Poor growth affecting management of mother in third trimester 08/21/2021 07/10/2022 Overview: EFW 6% at 34 weeks. Weekly BPP's. Delivery 38-39 weeks. 08/21/21- 23.6 weeks gestation. Measuring 3 weeks behind- will continue to monitor. Pam Yarbrough APRN.CNM Subchorionic hematoma in first trimester 022 07/10/2022 Overview: 05/09/21- visualized on TAUS. Pam Yarbrough APRN.CNM on oral contraceptive 04/29/2021 07/10/2022 Overview: 04/29/2021This is an unplanned . Patient was on control pills. She states I am nervous about the because having 3 children is a lot. She plans on keeping the baby. Father of the baby is involved. He is the father of her other children. TKRN Elevated glucose 06/21/2020 05/01/2021 Overview: 06/27/20- 3 hour GTT normal. Pam Yarbrough APRN.CNM 06/21/20- Elevated 1 hour at 151. 3 hour ordered. Pam Yarbrough APRN.CNM History of hypotension 01/25/2020 Overview: 02/02/2020 Pt has followed up with PCP. Instructed to increase salt intake. SW 01/25/2020Patient was seen by Dr Carlos 01/11 to discuss medications for low blood pressure. She states she was having syncope from low blood pressure. TKRN Uterine size-date discrepancy, third trimester 0 04/19/2018 02/02/2020 Overview: 04/19/18-Growth U/S at 31w6d, AGA, BRIANNA 12.8, 21st percentile. Will continue to watch fundal height. Consider growth U/S closer to 39 weeks. Alejandra Perdomo APRN.CNM Encounter for supervision of normal in teen primigravida, antepartum 04/05/2018 08/01/2020 documented as of this encounter (statuses as of 08/28/2022) [facility] History of Past illness Narrative* Problem Noted Date Diagnosed Date Resolved Date Poor growth affecting management of mother in third trimester 08/21/2021 07/10/2022 Overview: EFW 6% at 34 weeks. Weekly BPP's. Delivery 38-39 weeks. 08/21/21- 23.6 weeks gestation. Measuring 3 weeks behind- will continue to monitor. Pam Yarbrough APRN.CNM Subchorionic hematoma in first trimester 05/09/2021 07/10/2022 Overview: 05/09/21- visualized on TAUS. Pam Yarbrough APRN.CNM on oral contraceptive 04/29/2021 07/10/2022 Overview: 04/29/2021This is an unplanned . Patient was on control pills. She states I am nervous about the because having 3 children is a lot. She plans on keeping the baby. Father of the baby is involved. He is the father of her other children. TKRN Elevated glucose 06/21/2020 05/01/2021 Overview: 06/27/20- 3 hour GTT normal. Pam Yarbrough APRN.CNM 06/21/20- Elevated 1 hour at 151. 3 hour ordered. Pam Yarbrough APRN.CNM History of hypotension 01/25/202005/01 Overview: 02/02/2020 Pt has followed up with PCP. Instructed to increase salt intake. 01/25/2020Patient was seen by Dr Carlos 01/11 to discuss medications for low blood pressure. She states she was having syncope from low blood pressure. TKRN Uterine size-date discrepanc y, third trimester 04/19/2018 02/02/2020 Overview: 04/19/18-Growth U/S at 31w6d, AGA, BRIANNA 12.8, 21st percentile. Will continue to watch fundal height. Consider growth U/S closer to 39 weeks. Alejandra Perdomo APRN.CNM Encounter for supervision of normal in teen primigravida, antepartum 04/05/2018 021 documented as of this encounter (statuses as of 09/04/2022) [facility] History of Past illness Narrative* Problem Noted Date Diagnosed Date Resolved Date Poor growth affecting management of mother in third trimester 08/21/2021 07/10/2022 Overview: EFW 6% at 34 weeks. Weekly BPP's. Delivery 38-39 weeks. 08/21/21- 23.6 weeks gestation. Measuring 3 weeks behind- will continue to monitor. Pam Yarbrough APRN.CNM Subchorionic hematoma in first trimester 05/09/2021 07/10/2022 Overview: 05/09/21- visualized on TAUS. Pam Yarbrough APRN.CNM on oral contraceptive 04/29/2021 07/10/2022 Overview: 04/29/2021This is an unplanned . Patient was on control pills. She states I am nervous about the because having 3 children is a lot. She plans on keeping the baby. Father of the baby is involved. He is the father of her other children. TKRN Elevated glucose 06/21/2020 05/01/2021 Overview: 06/27/20- 3 hour GTT normal. Pam Yarbrough APRN.CNM 06/21/20- Elevated 1 hour at 151. 3 hour ordered. Pam Yarbrough APRN.CNM History of hypotension 01/25/202005/01 Overview: 02/02/2020 Pt has followed up with PCP. Instructed to increase salt intake. 01/25/2020Patient was seen by Dr Carlos 01/11 to discuss medications for low blood pressure. She states she was having syncope from low blood pressure. TKRN Uterine size-date discrepanc y, third trimester 04/19/2018 02/02/2020 Overview: 04/19/18-Growth U/S at 31w6d, AGA, BRIANNA 12.8, 21st percentile. Will continue to watch fundal height. Consider growth U/S closer to 39 weeks. Alejandra Perdomo APRN.CNM Encounter for supervision of normal in teen primigravida, antepartum 04/05/2018 021 documented as of this encounter (statuses as of 09/10/2022) [facility] History of Past illness Narrative* Problem Noted Date Diagnosed Date Resolved Date Poor growth affecting management of mother in third trimester 08/21/2021 07/10/2022 Overview: EFW 6% at 34 weeks. Weekly BPP's. Delivery 38-39 weeks. 08/21/21- 23.6 weeks gestation. Measuring 3 weeks behind- will continue to monitor. Pam Yarbrough APRN.CNM Subchorionic hematoma in first trimester 05/09/2021 07/10/2022 Overview: 05/09/21- visualized on TAUS. Pam Yarbrough APRN.CNM on oral contraceptive 04/29/2021 07/10/2022 Overview: 04/29/2021This is an unplanned . Patient was on control pills. She states I am nervous about the because having 3 children is a lot. She plans on keeping the baby. Father of the baby is involved. He is the father of her other children. TKRN Elevated glucose 06/21/2020 05/01/2021 Overview: 06/27/20- 3 hour GTT normal. Pam Yarbrough APRN.CNM 06/21/20- Elevated 1 hour at 151. 3 hour ordered. Pam Yarbrough APRN.CNM History of hypotension 01/25/202005/01 Overview: 02/02/2020 Pt has followed up with PCP. Instructed to increase salt intake. 01/25/2020Patient was seen by Dr Carlos 01/11 to discuss medications for low blood pressure. She states she was having syncope from low blood pressure. TKRN Uterine size-date discrepanc y, third trimester 04/19/2018 02/02/2020 Overview: 04/19/18-Growth U/S at 31w6d, AGA, BRIANNA 12.8, 21st percentile. Will continue to watch fundal height. Consider growth U/S closer to 39 weeks. Alejandra Perdomo APRN.CNM Encounter for supervision of normal in teen primigravida, antepartum 04/05/2018 021 documented as of this encounter (statuses as of 10/01/2022) [facility] History of Past illness Narrative* Problem Noted Date Diagnosed Date Resolved Date Poor growth affecting management of mother in third trimester 08/21/2021 07/10/2022 Overview: EFW 6% at 34 weeks. Weekly BPP's. Delivery 38-39 weeks. SW 08/21/21- 23.6 weeks gestation. Measuring 3 weeks behind- will continue to monitor. Pam Yarbrough APRN.CNM Subchorionic hematoma in first trimester 05/09/2021 07/10/2022 Overview: 05/09/21- visualized on TAUS. Pam Yarbrough APRN.CNM on oral contraceptive 04/29/2021 07/10/2022 Overview: 04/29/2021This is an unplanned . Patient was on control pills. She states I am nervous about the because having 3 children is a lot. She plans on keeping the baby. Father of the baby is involved. He is the father of her other children. TKRN Elevated glucose 06/21/2020 05/01/2021 Overview: 06/27/20- 3 hour GTT normal. Pam Yarbrough APRN.CNM 06/21/20- Elevated 1 hour at 151. 3 hour ordered. Pam Yarbrough APRN.CNM History of hypotension 01/25/202005/01 Overview: 02/02/2020 Pt has followed up with PCP. Instructed to increase salt intake. 01/25/2020Patient was seen by Dr Carlos 01/11 to discuss medications for low blood pressure. She states she was having syncope from low blood pressure. TKRN Uterine size-date discrepanc y, third trimester 04/19/2018 02/02/2020 Overview: 2/26/19-Growth U/S at 31w6d, AGA, BRIANNA 12.8, 21st percentile. Will continue to watch fundal height. Consider growth U/S closer to 39 weeks. Alejandra Perdomo APRN.CNM Encounter for supervision of normal in teen primigravida, antepartum 04/05/2018 021 documented as of this encounter (statuses as of 10/07/2022) [facility] History of Past illness Narrative* Problem Noted Date Diagnosed Date Resolved Date Poor growth affecting management of mother in third trimester 08/21/2021 07/10/2022 Overview: EFW 6% at 34 weeks. Weekly BPP's. Delivery 38-39 weeks. 08/21/21- 23.6 weeks gestation. Measuring 3 weeks behind- will continue to monitor. Pam Yarbrough APRN.CNM Subchorionic hematoma in first trimester 05/09/2021 07/10/2022 Overview: 05/09/21- visualized on TAUS. Pam Yarbrough APRN.CNM on oral contraceptive 04/29/2021 07/10/2022 Overview: 04/29/2021This is an unplanned . Patient was on control pills. She states I am nervous about the because having 3 children is a lot. She plans on keeping the baby. Father of the baby is involved. He is the father of her other children. TKRN Elevated glucose 06/21/2020 05/01/2021 Overview: 06/27/20- 3 hour GTT normal. Pam Yarbrough APRN.CNM 06/21/20- Elevated 1 hour at 151. 3 hour ordered. Pam Yarbrough APRN.CNM History of hypotension 01/25/202005/01 Overview: 02/02/2020 Pt has followed up with PCP. Instructed to increase salt intake. SW 01/25/2020Patient was seen by Dr Carlos 11/20 to discuss medications for low blood pressure. She states she was having syncope from low blood pressure. TKRN Uterine size-date discrepanc y, third trimester 04/19/2018 02/02/2020 Overview: 04/19/18-Growth U/S at 31w6d, AGA, BRIANNA 12.8, 21st percentile. Will continue to watch fundal height. Consider growth U/S closer to 39 weeks. Alejandra Perdomo APRN.CNM Encounter for supervision of normal in teen primigravida, antepartum 04/05/2018 021 documented as of this encounter (statuses as of 10/14/2022) [facility] History of Past illness Narrative* Problem Noted Date Diagnosed Date Resolved Date Poor growth affecting management of mother in third trimester 08/21/2021 07/10/2022 Overview: EFW 6% at 34 weeks. Weekly BPP's. Delivery 38-39 weeks. SW 08/21/21- 23.6 weeks gestation. Measuring 3 weeks behind- will continue to monitor. Pam Yarbrough APRN.CNM Subchorionic hematoma in first trimester 05/09/2021 07/10/2022 Overview: 05/09/21- visualized on TAUS. Pam Yarbrough APRN.CNM on oral contraceptive 04/29/2021 07/10/2022 Overview: 04/29/2021This is an unplanned . Patient was on control pills. She states I am nervous about the because having 3 children is a lot. She plans on keeping the baby. Father of the baby is involved. He is the father of her other children. TKRN Elevated glucose 06/21/2020 05/01/2021 Overview: 06/27/20- 3 hour GTT normal. Pam Yarbrough APRN.CNM 06/21/20- Elevated 1 hour at 151. 3 hour ordered. Pam Yarbrough APRN.CNM History of hypotension 01/25/202005/01 Overview: 02/02/2020 Pt has followed up with PCP. Instructed to increase salt intake. SW 01/25/2020Patient was seen by Dr Carlos 01/11 to discuss medications for low blood pressure. She states she was having syncope from low blood pressure. TKRN Uterine size-date discrepanc y, third trimester 04/19/2018 02/02/2020 Overview: 04/19/18-Growth U/S at 31w6d, AGA, BRIANNA 12.8, 21st percentile. Will continue to watch fundal height. Consider growth U/S closer to 39 weeks. Alejandra Perdomo APRN.CNM Encounter for supervision of normal in teen primigravida, antepartum 04/05/2018 021 documented as of this encounter (statuses as of 10/15/2022) [facility] History of Past illness Narrative* Problem Noted Date Diagnosed Date Resolved Date Poor growth affecting management of mother in third trimester 08/21/2021 07/10/2022 Overview: EFW 6% at 34 weeks. Weekly BPP's. Delivery 38-39 weeks. 08/21/21- 23.6 weeks gestation. Measuring 3 weeks behind- will continue to monitor. Pam Yarbrough APRN.CNM Subchorionic hematoma in first trimester 05/09/2021 07/10/2022 Overview: 05/09/21- visualized on TAUS. Pam Yarbrough APRN.CNM on oral contraceptive 04/29/2021 07/10/2022 Overview: 04/29/2021This is an unplanned . Patient was on control pills. She states I am nervous about the because having 3 children is a lot. She plans on keeping the baby. Father of the baby is involved. He is the father of her other children. TKRN Elevated glucose 06/21/2020 05/01/2021 Overview: 06/27/20- 3 hour GTT normal. Pam Yarbrough APRN.CNM 06/21/20- Elevated 1 hour at 151. 3 hour ordered. Pam Yarbrough APRN.CNM History of hypotension 01/25/202005/01 Overview: 02/02/2020 Pt has followed up with PCP. Instructed to increase salt intake. SW 01/25/2020Patient was seen by Dr Carlos 01/11 to discuss medications for low blood pressure. She states she was having syncope from low blood pressure. TKRN Uterine size-date discrepanc y, third trimester 04/19/2018 02/02/2020 Overview: 04/19/18-Growth U/S at 31w6d, AGA, BRIANNA 12.8, 21st percentile. Will continue to watch fundal height. Consider growth U/S closer to 39 weeks. Alejandra Perdomo APRN.CNM Encounter for supervision of normal in teen primigravida, antepartum 04/05/2018 021 documented as of this encounter (statuses as of 10/15/2022) [facility] History of Past illness Narrative* Problem Noted Date Diagnosed Date Resolved Date Poor growth affecting management of mother in third trimester 08/21/2021 07/10/2022 Overview: EFW 6% at 34 weeks. Weekly BPP's. Delivery 38-39 weeks. 08/21/21- 23.6 weeks gestation. Measuring 3 weeks behind- will continue to monitor. Pam Yarbrough APRN.CNM Subchorionic hematoma in first trimester 05/09/2021 07/10/2022 Overview: 05/09/21- visualized on TAUS. Pam Yarbrough APRN.CNM on oral contraceptive 04/29/2021 07/10/2022 Overview: 04/29/2021This is an unplanned . Patient was on control pills. She states I am nervous about the because having 3 children is a lot. She plans on keeping the baby. Father of the baby is involved. He is the father of her other children. TKRN Elevated glucose 06/21/2020 05/01/2021 Overview: 06/27/20- 3 hour GTT normal. Pam Yarbrough APRN.CNM 06/21/20- Elevated 1 hour at 151. 3 hour ordered. Pam Yarbrough APRN.CNM History of hypotension 01/25/202005/01 Overview: 02/02/2020 Pt has followed up with PCP. Instructed to increase salt intake. SW 01/25/2020Patient was seen by Dr Carlos 01/11 to discuss medications for low blood pressure. She states she was having syncope from low blood pressure. TKRN Uterine size-date discrepanc y, third trimester 04/19/2018 02/02/2020 Overview: 04/19/18-Growth U/S at 31w6d, AGA, BRIANNA 12.8, 21st percentile. Will continue to watch fundal height. Consider growth U/S closer to 39 weeks. Alejandra Perdomo APRN.CNM Encounter for supervision of normal in teen primigravida, antepartum 04/05/2018 021 documented as of this encounter (statuses as of 10/29/2022) [facility] History of Past illness Narrative* Problem Noted Date Diagnosed Date Resolved Date Poor growth affecting management of mother in third trimester 08/21/2021 07/10/2022 Overview: EFW 6% at 34 weeks. Weekly BPP's. Delivery 38-39 weeks. 08/21/21- 23.6 weeks gestation. Measuring 3 weeks behind- will continue to monitor. Pam Yarbrough APRN.CNM Subchorionic hematoma in first trimester 05/09/2021 07/10/2022 Overview: 05/09/21- visualized on TAUS. Pam Yarbrough APRN.CNM on oral contraceptive 04/29/2021 07/10/2022 Overview: 04/29/2021This is an unplanned . Patient was on control pills. She states I am nervous about the because having 3 children is a lot. She plans on keeping the baby. Father of the baby is involved. He is the father of her other children. TKRN Elevated glucose 06/21/2020 05/01/2021 Overview: 06/27/20- 3 hour GTT normal. Pam Yarbrough APRN.CNM 06/21/20- Elevated 1 hour at 151. 3 hour ordered. Pam Yarbrough APRN.CNM History of hypotension 01/25/202005/01 Overview: 02/02/2020 Pt has followed up with PCP. Instructed to increase salt intake. 01/25/2020Patient was seen by Dr Carlos 01/11 to discuss medications for low blood pressure. She states she was having syncope from low blood pressure. TKRN Uterine size-date discrepanc y, third trimester 04/19/2018 02/02/2020 Overview: 04/19/18-Growth U/S at 31w6d, AGA, BRIANNA 12.8, 21st percentile. Will continue to watch fundal height. Consider growth U/S closer to 39 weeks. Alejandra Perdomo APRN.CNM Encounter for supervision of normal in teen primigravida, antepartum 04/05/2018 021 documented as of this encounter (statuses as of 10/30/2022) [facility] History of Past illness Narrative* Problem Noted Date Diagnosed Date Resolved Date Poor growth affecting management of mother in third trimester 08/21/2021 07/10/2022 Overview: EFW 6% at 34 weeks. Weekly BPP's. Delivery 38-39 weeks. 08/21/21- 23.6 weeks gestation. Measuring 3 weeks behind- will continue to monitor. Pam Yarbrough APRN.CNM Subchorionic hematoma in first trimester 05/09/2021 07/10/2022 Overview: 05/09/21- visualized on TAUS. Pam Yarbrough APRN.CNM on oral contraceptive 04/29/2021 07/10/2022 Overview: 04/29/2021This is an unplanned . Patient was on control pills. She states I am nervous about the because having 3 children is a lot. She plans on keeping the baby. Father of the baby is involved. He is the father of her other children. TKRN Elevated glucose 06/21/2020 05/01/2021 Overview: 06/27/20- 3 hour GTT normal. Pam Yarbrough APRN.CNM 06/21/20- Elevated 1 hour at 151. 3 hour ordered. Pam Yarbrough APRN.CNM History of hypotension 01/25/202005/01 Overview: 02/02/2020 Pt has followed up with PCP. Instructed to increase salt intake. 01/25/2020Patient was seen by Dr Carlos 01/11 to discuss medications for low blood pressure. She states she was having syncope from low blood pressure. TKRN Uterine size-date discrepanc y, third trimester 04/19/2018 02/02/2020 Overview: 04/19/18-Growth U/S at 31w6d, AGA, BRIANNA 12.8, 21st percentile. Will continue to watch fundal height. Consider growth U/S closer to 39 weeks. Alejandra Perdomo APRN.CNM Encounter for supervision of normal in teen primigravida, antepartum 04/05/2018 021 documented as of this encounter (statuses as of 11/02/2022) [facility] History of Past illness Narrative* Problem Noted Date Diagnosed Date Resolved Date Poor growth affecting management of mother in third trimester 08/21/2021 07/10/2022 Overview: EFW 6% at 34 weeks. Weekly BPP's. Delivery 38-39 weeks. 08/21/21- 23.6 weeks gestation. Measuring 3 weeks behind- will continue to monitor. Pam Yarbrough APRN.CNM Subchorionic hematoma in first trimester 05/09/2021 07/10/2022 Overview: 05/09/21- visualized on TAUS. Pam Yarbrough APRN.CNM on oral contraceptive 04/29/2021 07/10/2022 Overview: 04/29/2021This is an unplanned . Patient was on control pills. She states I am nervous about the because having 3 children is a lot. She plans on keeping the baby. Father of the baby is involved. He is the father of her other children. TKRN Elevated glucose 06/21/2020 05/01/2021 Overview: 06/27/20- 3 hour GTT normal. Pam Yarbrough APRN.CNM 06/21/20- Elevated 1 hour at 151. 3 hour ordered. Pam Yarbrough APRN.CNM History of hypotension 01/25/202005/01 Overview: 02/02/2020 Pt has followed up with PCP. Instructed to increase salt intake. SW 01/25/2020Patient was seen by Dr Carlos 01/11 to discuss medications for low blood pressure. She states she was having syncope from low blood pressure. TKRN Uterine size-date discrepanc y, third trimester 04/19/2018 02/02/2020 Overview: 04/19/18-Growth U/S at 31w6d, AGA, BRIANNA 12.8, 21st percentile. Will continue to watch fundal height. Consider growth U/S closer to 39 weeks. Alejandra Perdomo APRN.CNM Encounter for supervision of normal in teen primigravida, antepartum 04/05/2018 021 documented as of this encounter (statuses as of 11/03/2022) [facility] Miscellaneous Notes* Quick Notes - Pam Yarbrough APRN.CNM - 08/21/2021 10:29 AM EDT S: Keshia Silverman is a 21 year old female who presents at 23.6 weeks gestation for a routine visit. Just completed follow up anatomy US- unable to get views of spine previously. Feeling good. Positive movement. Denies headache, visual changes, chest pain, shortness of breath, vaginal bleeding, leakage of fluid, or dysuria. O: See flow sheet Gen: No apparent distress Abd: Gravid, non tender S<D, measuring 3 weeks behind- will monitor ASSESSMENT/PLAN: 1. 24 weeks gestation of - ICD9: V22.2, ICD10: Z3A.24 - URINE OB DIP B/O - CBC + DIFF - GEST GLUC SCREEN, 1-HR, 50 GM, NON-FASTING - SYPHILIS TOTAL W/REFLEX - TDAP at next visit P: 1) PTL precautions reviewed and when to call 2) RTO 4 weeks or sooner if needed Pam Yarbrough APRN.CNM [facility] Instructions* Patient Instructions* Zuri Hennessy MA - 08/21/2021 9:49 AM EDT SEQUENTIAL SCREENINGS The [facility] offers sequential screenings for women who are interested in screenings for chromosomal abnormalities and certain defects during a . The sequential screen combinesultrasound and blood tests to determine the risk of chromosomal abnormalities, including Down's Syndrome (Trisomy 21) and Trisomy 18, as well as open neural tube defects including spina bifida. Ultrasound examination is performed between 11 weeks and 13 weeks gestational age. Blood tests are drawn after the ultrasound and again later in the between 15 and 21 weeks gestational age. Please let your physician know if you are interested in this testing. It will require an appointment withour vacuum technician. This is not an ultrasound performed by a physician in our office during a routine visit. SIGNS AND SYMPTOMS OF LABOR 1. Contractions every 10 minutes or more often 2. Clear, pink, or brownish fluid (water) leaking from vagina 3. Feeling that baby is pushing down, pressure 4. Low, dull backache 5. Cramps that feel like a period 6. Cramps with or without diarrhea If you notice any of the above symptoms, contact our office at [phone] and ask to speak with anurse. After hours, you can call doctors registry at [phone] OR call [facility] at [phone] ask to have the doctor manager retention paged. If you consider this an emergency, dial 9--3 or go to your nearest emergency department. NEED HELP? Are you dealing with a violent or abusive relationship? Are you a victim of rape or sexual assult? Call [facility] ([place]) 24 hour Crisis Hotline: 438.932.5472 or 557-829-9541. MANUAL Your Guide to a Healthy manual is now on-line. Visit [email or web address] to download your free copy documented in this encounterBu[facility]rus [facility]06-27-2022 Miscellaneous Notes* Telephone Encounter - Yuliana Carlos MD - 08/18/2021 8:41 AM EDT filed * Telephone Encounter - Milagros Talavera LPN - 08/18/2021 8:39 AM EDT Pt notified and will schedule follow up anatomy scan at visit on 08/21/21. See pended order below. Milagros Talavera LPN * Telephone Encounter - Abigail Jurado RN - 08/18/2021 8:25 AM EDT Left message for patient to call office. Abigail Jurado RN * Telephone Encounter - Abigail Jurado RN - 08/18/2021 8:24 AM EDT ----- Message from Yuliana Carlos MD sent at 08/18/2021 8:07 AM EDT ----- Add to record Needs anatomy follow up in 3 weeks documented in this encounterBucyrus [facility] Hospital06-22-2022 Miscellaneous Notes* Telephone Encounter - Abigail Jurado RN - 08/13/2021 4:40 PM EDT Linked to appointment * Telephone Encounter - Yuliana Carlos MD - 08/13/2021 4:39 PM EDT filed * Telephone Encounter - Abigail Jurado RN - 08/13/2021 4:31 PM EDT Please file pending US order for follow-up anatomy. Thank you. documented in this encounterBucyrus [facility] Hospital06-02-2022 Miscellaneous Notes* Quick Notes - Yuliana Carlos MD - 07/24/2021 2:40 PM EDT SW- Nausea is improving and she feels she is finally eating better. No pain, vb, lof. PE: Gen- NAD, well appearing Abd- ND Ext- No edema See flowsheet A/p 19 wk gestation - Anatomy US today and final report pending - N/V: Improved and has had weight gain since last visit. Continue to closely monitor and discussednormal diet/weight gain in - H/o PTD: Continue IM progesterone - RTO 4 wks Yuliana Carlos DO documented in this encounterBucyrus [facility]06-02-2022 Instructions* Patient Instructions* Ev Rivero MA - 07/24/2021 1:50 PM EDT SEQUENTIAL SCREENINGS [facility] offers sequential screenings for women who are interested in screenings for chromosomal abnormalities and certain defects during a . The sequential screen combinesultrasound and blood tests to determine the risk of chromosomal abnormalities, including Down's Syndrome (Trisomy 21) and Trisomy 18, as well as open neural tube defects including spina bifida. Ultrasound examination is performed between 11 weeks and 13 weeks gestational age. Blood tests are drawn after the ultrasound and again later in the between 15 and 21 weeks gestational age. Please let your physician know if you are interested in this testing. It will require an appointment withour vacuum technician. This is not an ultrasound performed by a physician in our office during a routine visit. SIGNS AND SYMPTOMS OF LABOR 1. Contractions every 10 minutes or more often 2. Clear, pink, or brownish fluid (water) leaking from vagina 3. Feeling that baby is pushing down, pressure 4. Low, dull backache 5. Cramps that feel like a period 6. Cramps with or without diarrhea If you notice any of the above symptoms, contact our office at [phone] and ask to speak with anurse. After hours, you can call doctors registry at [phone] OR call [facility] at [phone] ask to have the doctor manager retention paged. If you consider this an emergency, dial 9-1-3 or go to your nearest emergency department. NEED HELP? Are you dealing with a violent or abusive relationship? Are you a victim of rape or sexual assult? Call [facility] ([place]) 24 hour Crisis Hotline: 616.225.6118 or 407-928-1269. MANUAL Your Guide to a Healthy manual is now on-line. Visit [email or web address] to download your free copy documented in this encounterBucyrus Community Hospital05-12-2022 Miscellaneous Notes* Quick Notes - Yuliana Carlos MD - 07/03/2021 3:06 PM EDT SW- Some nausea. Controlled with Zofran. Tolerating PO. No pain, vb, lof. Possible flutters. PE: Gen- NAD, well appearing Abd- Soft, NT Ext- No edema See flowsheet A/p 16 wk gestation - Discussed diet and recommended weight gain in - Blood work today to complete sequential screen - Anatomy US ordered - RTO 3-4 weeks for anatomy US and OB visit after Yuliana Carlos DO documented in this encounterBucyrus Community Hospital05-12-2022 Instructions* Patient Instructions* Ev Rivero MA - 07/03/2021 2:44 PM EDT SEQUENTIAL SCREENINGS [facility] offers sequential screenings for women who are interested in screenings for chromosomal abnormalities and certain defects during a . The sequential screen combinesultrasound and blood tests to determine the risk of chromosomal abnormalities, including Down's Syndrome (Trisomy 21) and Trisomy 18, as well as open neural tube defects including spina bifida. Ultrasound examination is performed between 11 weeks and 13 weeks gestational age. Blood tests are drawn after the ultrasound and again later in the between 15 and 21 weeks gestational age. Please let your physician know if you are interested in this testing. It will require an appointment withour vacuum technician. This is not an ultrasound performed by a physician in our office during a routine visit. SIGNS AND SYMPTOMS OF LABOR 1. Contractions every 10 minutes or more often 2. Clear, pink, or brownish fluid (water) leaking from vagina 3. Feeling that baby is pushing down, pressure 4. Low, dull backache 5. Cramps that feel like a period 6. Cramps with or without diarrhea If you notice any of the above symptoms, contact our office at [phone] and ask to speak with anurse. After hours, you can call doctors registry at [phone] OR call [facility] at [phone] ask to have the doctor manager retention paged. If you consider this an emergency, dial 9-1-1 or go to your nearest emergency department. NEED HELP? Are you dealing with a violent or abusive relationship? Are you a victim of rape or sexual assult? Call [facility] ([place]) 24 hour Crisis Hotline: 584.798.3189 or 042-650-7283. MANUAL Your Guide to a Healthy manual is now on-line. Visit [email or web address] to download your free copy documented in this encounterBucyrus Community Hospital05-04-2022 Miscellaneous Notes* Telephone Encounter - Alejandra Perdomo APRN.CNM - 06/25/2021 12:51 PM EDT Agree to go to ED. Thank you, Alejandra Perdomo APRN.CNM * Telephone Encounter - Abigail Jurado RN - 06/25/2021 11:22 AM EDT 15w5d Patient calling to report that she passed out at work this morning. Asking if she should go to ER. She was sitting in her office chair, bent over, and then stood up. Woke up on the floor with her coworker standing beside her. Unsure how long she was out for, but thinks it was a short period of time. Appetitive is good and she's been drinking water. See 06/18/21 SpikeSourcet message. Patient states she still continues to feel that she can not take a deep enough breath. Denies chest pain or tightness. Per RR message to patient in EGENhart message, patient to go to ER for worsening symptoms or if she passes out. Patient plans to go to [facility] ER. ARMANDO Jurado RN documented in this encounterBucyrus Community Hospital04-27-2022 Miscellaneous Notes* Telephone Encounter - Dara Beauchamp RN - 06/18/2021 2:24 PM EDT Hgb 12.2 2 weeks ago . Last seen 06/05/2021. Patient called back. Denies anxiety . No other symptoms except for occasional palpitations. Symptoms were not relieved by eating. States she is eating small frequent meals. Patient offered appt today. Would like to have Dr Zavala view M[employer] message and see what her thoughts are. She is aware that we may send her to PCP for evaluation documented in this encounterBucyrus Community Hospital04-25-2022 Miscellaneous Notes* Telephone Encounter - Lolis Gusman - 06/16/2021 1:44 PM EDT Patient owes $175.00 out of pocket 60 Min/GA/Main with Benjamin Rivero documented in this [id number] Miscellaneous Notes* Quick Notes - Kimani Núñez MD - 06/05/2021 9:47 AM EDT KJ - VB No. LOF No. CTXS No. Movement: absent. Other c/o: Nausea is imporving but still has some emesis. Tolerating PO. Medication list reviewed. Physical Exam See Flow Sheet Gen: no accute distress, well appearing Abd: soft, nontender, gravid A/P 12w6d Estimated Date of Delivery: 12/12/21 NT today with sequential H/o PTD - start Yuri at 16 weeks Start iron in addition to gummy Kimani Núñez MD documented in this encounterBucyrus Community Hospital04-14-2022 History of Present illness Narrative* Huong Hagen RN - 06/05/2021 9:29 AM EDT Patient here for First Trimester Screening. See ultrasound report for details. Options for genetic screening and diagnosis discussed with the patient. Patient opts for first trimester screening and the sequential screening protocol. Limitations of screening tests discussed withthe patient. Kimani Núñez MD documented in this encounterBucyrus Community Hospital04-14-2022 Instructions* Patient Instructions* Opal Hughes Ma - 06/05/2021 9:22 AM EDT SEQUENTIAL SCREENINGS The [facility] offers sequential screenings for women who are interested in screenings for chromosomal abnormalities and certain defects during a . The sequential screen combinesultrasound and blood tests to determine the risk of chromosomal abnormalities, including Down's Syndrome (Trisomy 21) and Trisomy 18, as well as open neural tube defects including spina bifida. Ultrasound examination is performed between 11 weeks and 13 weeks gestational age. Blood tests are drawn after the ultrasound and again later in the between 15 and 21 weeks gestational age. Please let your physician know if you are interested in this testing. It will require an appointment withour vacuum technician. This is not an ultrasound performed by a physician in our office during a routine visit. SIGNS AND SYMPTOMS OF LABOR 1. Contractions every 10 minutes or more often 2. Clear, pink, or brownish fluid (water) leaking from vagina 3. Feeling that baby is pushing down, pressure 4. Low, dull backache 5. Cramps that feel like a period 6. Cramps with or without diarrhea If you notice any of the above symptoms, contact our office at [phone] and ask to speak with anurse. After hours, you can call doctors registry at [phone] OR call [facility] at [phone] ask to have the doctor manager retention paged. If you consider this an emergency, dial 9-1- or go to your nearest emergency department. NEED HELP? Are you dealing with a violent or abusive relationship? Are you a victim of rape or sexual assult? Call [facility] [facility] 24 hour Crisis Hotline: 276.224.3415 or 756-072-6620. MANUAL Your Guide to a Healthy manual is now on-line. Visit [email or web address] to download your free copy SEQUENTIAL TESTING PROCESS Sequential Screen First Trimester Today you are currently: 12w6d weeks 06/05/2021: Ultrasound and blood test. Sequential Screen Second Trimester (16-17 Weeks Gestation) When you are called with your results, the nurse will give the optimal draw dates for the Sequential screen second trimester. Blood testing can be done at any [facility] lab. Please report to the any cultured marble products maker office front desk auxiliary for the Sequential Part 2 requisition and order before reporting to the lab. Your weight will need to be documented for testing. Please note: -No appointment is need for your second blood draw. -Office hours are 8 am to 4:30 pm. -Please have testing done prior to 12 noon on Wednesday's -Once the sequential testing is started, in the first trimester the only follow- up will be for the sequential screen second trimester. Please don't have a Quad screen ordered by another provider. If you or your Provider have any questions please call your maternal medicine office, for east side please call [phone] or for the West side call [phone] and ask for the the nurse. Thank you. documented in this encounterBucyrus Community Hospital04-30-2021 History of Past illness Narrative* Problem Noted Date Resolved Date Elevated glucose 06/21/2020 05/01/2021 Overview: 06/27/20- 3 hour GTT normal. Pam Yarbrough APRN.CNM 06/21/20- Elevated 1 hour at 151. 3 hour ordered. Pam Yarbrough APRN.CNM History of hypotension 01/25/2020 Overview: 02/02/2020 Pt has followed up with PCP. Instructed to increase salt intake. SW 01/25/2020Patient was seen by Dr Carlos 01/11 to discuss medications for low blood pressure. She states she was having syncope from low blood pressure. TKRN Uterine size-date discrepancy, third trimester 0 04/19/2018 02/02/2020 Overview: 04/19/18-Growth U/S at 31w6d, AGA, BRIANNA 12.8, 21st percentile. Will continue to watch fundal height. Consider growth U/S closer to 39 weeks. Alejandra Perdomo APRN.CNM Encounter for supervision of normal in teen primigravida, antepartum 04/05/2018 08/01/2020 documented as of this encounter (statuses as of 06/05/2021) [facility] of Past illness Narrative* Problem Noted Date Resolved Date Elevated glucose 06/21/2020 05/01/2021 Overview: 06/27/20- 3 hour GTT normal. Pam Yarbrough APRN.CNM 06/21/20- Elevated 1 hour at 151. 3 hour ordered. Pam Yarbrough APRN.CNM History of hypotension 01/25/2020 2 Overview: 02/02/2020 Pt has followed up with PCP. Instructed to increase salt intake. 01/25/2020Patient was seen by Dr Carlos 01/11 to discuss medications for low blood pressure. She states she was having syncope from low blood pressure. TKRN Uterine size-date discrepancy, third trimester 0 04/19/2018 02/02/2020 Overview: 04/19/18-Growth U/S at 31w6d, AGA, BRIANNA 12.8, 21st percentile. Will continue to watch fundal height. Consider growth U/S closer to 39 weeks. Alejandra Perdomo APRN.CNM Encounter for supervision of normal in teen primigravida, antepartum 04/05/2018 08/01/2020 documented as of this encounter (statuses as of 06/05/2021) [facility] of Past illness Narrative* Problem Noted Date Resolved Date Elevated glucose 06/21/2020 05/01/2021 Overview: 06/27/20- 3 hour GTT normal. Pam Yarbrough APRN.CNM 06/21/20- Elevated 1 hour at 151. 3 hour ordered. Pam Yarbrough APRN.CNM History of hypotension 01/25/2020 2 Overview: 02/02/2020 Pt has followed up with PCP. Instructed to increase salt intake. 01/25/2020Patient was seen by Dr Carlos 01/11 to discuss medications for low blood pressure. She states she was having syncope from low blood pressure. TKRN Uterine size-date discrepancy, third trimester 0 04/19/2018 02/02/2020 Overview: 04/19/18-Growth U/S at 31w6d, AGA, BRIANNA 12.8, 21st percentile. Will continue to watch fundal height. Consider growth U/S closer to 39 weeks. Alejandra Perdomo APRN.CNM Encounter for supervision of normal in teen primigravida, antepartum 04/05/2018 08/01/2020 documented as of this encounter (statuses as of 06/18/2021) [facility] of Past illness Narrative* Problem Noted Date Resolved Date Elevated glucose 06/21/2020 05/01/2021 Overview: 06/27/20- 3 hour GTT normal. Pam Yarbrough APRN.CNM 06/21/20- Elevated 1 hour at 151. 3 hour ordered. Pam Yarbrough APRN.CNM History of hypotension 01/25/2020 2 Overview: 02/02/2020 Pt has followed up with PCP. Instructed to increase salt intake. SW 01/25/2020Patient was seen by Dr Carlos 01/11 to discuss medications for low blood pressure. She states she was having syncope from low blood pressure. TKRN Uterine size-date discrepancy, third trimester 0 04/19/2018 02/02/2020 Overview: 04/19/18-Growth U/S at 31w6d, AGA, BRIANNA 12.8, 21st percentile. Will continue to watch fundal height. Consider growth U/S closer to 39 weeks. Alejandra Perdomo APRN.CNM Encounter for supervision of normal in teen primigravida, antepartum 04/05/2018 08/01/2020 documented as of this encounter (statuses as of 06/25/2021) [facility] of Past illness Narrative* Problem Noted Date Resolved Date Elevated glucose 06/21/2020 05/01/2021 Overview: 06/27/20- 3 hour GTT normal. Pam Yarbrough APRN.CNM 06/21/20- Elevated 1 hour at 151. 3 hour ordered. Pam Yarbrough APRN.CNM History of hypotension 01/25/2020 2 Overview: 02/02/2020 Pt has followed up with PCP. Instructed to increase salt intake. 01/25/2020Patient was seen by Dr Carlos 01/11 to discuss medications for low blood pressure. She states she was having syncope from low blood pressure. TKRN Uterine size-date discrepancy, third trimester 0 04/19/2018 02/02/2020 Overview: 04/19/18-Growth U/S at 31w6d, AGA, BRIANNA 12.8, 21st percentile. Will continue to watch fundal height. Consider growth U/S closer to 39 weeks. Alejandra Perdomo APRN.CNM Encounter for supervision of normal in teen primigravida, antepartum 04/05/2018 08/01/2020 documented as of this encounter (statuses as of 07/03/2021) [facility] of Past illness Narrative* Problem Noted Date Resolved Date Elevated glucose 06/21/2020 05/01/2021 Overview: 06/27/20- 3 hour GTT normal. Pam Yarbrough APRN.CNM 06/21/20- Elevated 1 hour at 151. 3 hour ordered. Pam Yarbrough APRN.CNM History of hypotension 01/25/2020 Overview: 02/02/2020 Pt has followed up with PCP. Instructed to increase salt intake. 01/25/2020Patient was seen by Dr Carlos 01/11 to discuss medications for low blood pressure. She states she was having syncope from low blood pressure. TKRN Uterine size-date discrepancy, third trimester 0 04/19/2018 02/02/2020 Overview: 04/19/18-Growth U/S at 31w6d, AGA, BRIANNA 12.8, 21st percentile. Will continue to watch fundal height. Consider growth U/S closer to 39 weeks. Alejandra Perdomo APRN.CNM Encounter for supervision of normal in teen primigravida, antepartum 04/05/2018 08/01/2020 documented as of this encounter (statuses as of 07/24/2021) [facility] of Past illness Narrative* Problem Noted Date Resolved Date Elevated glucose 06/21/2020 05/01/2021 Overview: 06/27/20- 3 hour GTT normal. Pam Yarbrough APRN.CNM 06/21/20- Elevated 1 hour at 151. 3 hour ordered. Pam Yarbrough APRN.CNM History of hypotension 01/25/2020 2 Overview: 02/02/2020 Pt has followed up with PCP. Instructed to increase salt intake. 01/25/2020Patient was seen by Dr Carlos 01/11 to discuss medications for low blood pressure. She states she was having syncope from low blood pressure. TKRN Uterine size-date discrepancy, third trimester 0 04/19/2018 02/02/2020 Overview: 04/19/18-Growth U/S at 31w6d, AGA, BRIANNA 12.8, 21st percentile. Will continue to watch fundal height. Consider growth U/S closer to 39 weeks. Alejandra Perdomo APRN.CNM Encounter for supervision of normal in teen primigravida, antepartum 04/05/2018 08/01/2020 documented as of this encounter (statuses as of 07/24/2021) [facility] of Past illness Narrative* Problem Noted Date Resolved Date Elevated glucose 06/21/2020 05/01/2021 Overview: 06/27/20- 3 hour GTT normal. Pam Yarbrough APRN.CNM 06/21/20- Elevated 1 hour at 151. 3 hour ordered. Pam Yarbrough APRN.CNM History of hypotension 01/25/2020 2 Overview: 02/02/2020 Pt has followed up with PCP. Instructed to increase salt intake. 01/25/2020Patient was seen by Dr Carlos 01/11 to discuss medications for low blood pressure. She states she was having syncope from low blood pressure. TKRN Uterine size-date discrepancy, third trimester 0 04/19/2018 02/02/2020 Overview: 04/19/18-Growth U/S at 31w6d, AGA, BRIANNA 12.8, 21st percentile. Will continue to watch fundal height. Consider growth U/S closer to 39 weeks. Alejandra Perdomo APRN.CNM Encounter for supervision of normal in teen primigravida, antepartum 04/05/2018 08/01/2020 documented as of this encounter (statuses as of 08/13/2021) [facility] of Past illness Narrative* Problem Noted Date Resolved Date Elevated glucose 06/21/2020 05/01/2021 Overview: 5- 3 hour GTT normal. Pam Yarbrough APRN.CNM 06/21/20- Elevated 1 hour at 151. 3 hour ordered. Pam Yarbrough APRN.CNM History of hypotension 01/25/2020 Overview: 02/02/2020 Pt has followed up with PCP. Instructed to increase salt intake. SW 01/25/2020Patient was seen by Dr Carlos 01/11 to discuss medications for low blood pressure. She states she was having syncope from low blood pressure. TKRN Uterine size-date discrepancy, third trimester 0 04/19/2018 02/02/2020 Overview: 04/19/18-Growth U/S at 31w6d, AGA, BRIANNA 12.8, 21st percentile. Will continue to watch fundal height. Consider growth U/S closer to 39 weeks. Alejandra Perdomo APRN.CNM Encounter for supervision of normal in teen primigravida, antepartum 04/05/2018 08/01/2020 documented as of this encounter (statuses as of 08/14/2021) [facility] of Past illness Narrative* Problem Noted Date Resolved Date Elevated glucose 06/21/2020 05/01/2021 Overview: 5- 3 hour GTT normal. Pam Yarbrough APRN.CNM 06/21/20- Elevated 1 hour at 151. 3 hour ordered. Pam Yarbrough APRN.CNM History of hypotension 01/25/2020 2 Overview: 02/02/2020 Pt has followed up with PCP. Instructed to increase salt intake. 01/25/2020Patient was seen by Dr Carlos 01/11 to discuss medications for low blood pressure. She states she was having syncope from low blood pressure. TKRN Uterine size-date discrepancy, third trimester 0 04/19/2018 02/02/2020 Overview: 04/19/18-Growth U/S at 31w6d, AGA, BRIANNA 12.8, 21st percentile. Will continue to watch fundal height. Consider growth U/S closer to 39 weeks. Alejandra Perdomo APRN.CNM Encounter for supervision of normal in teen primigravida, antepartum 04/05/2018 08/01/2020 documented as of this encounter (statuses as of 08/18/2021) [facility] of Past illness Narrative* Problem Noted Date Resolved Date Elevated glucose 06/21/2020 05/01/2021 Overview: 06/27/20- 3 hour GTT normal. Pam Yarbrough APRN.CNM 06/21/20- Elevated 1 hour at 151. 3 hour ordered. Pam Yarbrough APRN.CNM History of hypotension 01/25/2020 2 Overview: 02/02/2020 Pt has followed up with PCP. Instructed to increase salt intake. 01/25/2020Patient was seen by Dr Carlos 01/11 to discuss medications for low blood pressure. She states she was having syncope from low blood pressure. TKRN Uterine size-date discrepancy, third trimester 0 04/19/2018 02/02/2020 Overview: 04/19/18-Growth U/S at 31w6d, AGA, BRIANNA 12.8, 21st percentile. Will continue to watch fundal height. Consider growth U/S closer to 39 weeks. Alejandra Perdomo APRN.CNM Encounter for supervision of normal in teen primigravida, antepartum 04/05/2018 08/01/2020 documented as of this encounter (statuses as of 08/21/2021) [facility] Past illness Narrative* Problem Noted Date Resolved Date Elevated glucose 06/21/2020 05/01/2021 Overview: 06/27/20- 3 hour GTT normal. Pam Yarbrough APRN.CNM 06/21/20- Elevated 1 hour at 151. 3 hour ordered. Pam Yarbrough APRN.CNM History of hypotension 01/25/2020 2 Overview: 02/02/2020 Pt has followed up with PCP. Instructed to increase salt intake. 01/25/2020Patient was seen by Dr Carlos 01/11 to discuss medications for low blood pressure. She states she was having syncope from low blood pressure. TKRN Uterine size-date discrepancy, third trimester 0 04/19/2018 02/02/2020 Overview: 04/19/18-Growth U/S at 31w6d, AGA, BRIANNA 12.8, 21st percentile. Will continue to watch fundal height. Consider growth U/S closer to 39 weeks. Alejandra Perdomo APRN.CNM Encounter for supervision of normal in teen primigravida, antepartum 04/05/2018 08/01/2020 documented as of this encounter (statuses as of 09/18/2021) [facility]04[facility]21 History of Past illness Narrative* Problem Noted Date Resolved Date Elevated glucose 06/21/2020 05/01/2021 Overview: 06/27/20- 3 hour GTT normal. Pam Yarbrough APRN.CNM 06/21/20- Elevated 1 hour at 151. 3 hour ordered. Pam Yarbrough APRN.CNM History of hypotension 01/25/2020 2 Overview: 02/02/2020 Pt has followed up with PCP. Instructed to increase salt intake. 01/25/2020Patient was seen by Dr Carlos 01/11 to discuss medications for low blood pressure. She states she was having syncope from low blood pressure. TKRN Uterine size-date discrepancy, third trimester 0 04/19/2018 02/02/2020 Overview: 04/19/18-Growth U/S at 31w6d, AGA, BRIANNA 12.8, 21st percentile. Will continue to watch fundal height. Consider growth U/S closer to 39 weeks. Alejandra Perdomo APRN.CNM Encounter for supervision of normal in teen primigravida, antepartum 04/05/2018 08/01/2020 documented as of this encounter (statuses as of 09/23/2021) [facility]21 History of Past illness Narrative* Problem Noted Date Resolved Date Elevated glucose 06/21/2020 05/01/2021 Overview: 06/27/20- 3 hour GTT normal. Pam Yarbrough APRN.CNM 06/21/20- Elevated 1 hour at 151. 3 hour ordered. Pam Yarbrough APRN.CNM History of hypotension 01/25/2020 Overview: 02/02/2020 Pt has followed up with PCP. Instructed to increase salt intake. SW 01/25/2020Patient was seen by Dr Carlos 01/11 to discuss medications for low blood pressure. She states she was having syncope from low blood pressure. TKRN Uterine size-date discrepancy, third trimester 0 04/19/2018 02/02/2020 Overview: 04/19/18-Growth U/S at 31w6d, AGA, BRIANNA 12.8, 21st percentile. Will continue to watch fundal height. Consider growth U/S closer to 39 weeks. Alejandra Perdomo APRN.CNM Encounter for supervision of normal in teen primigravida, antepartum 04/05/2018 08/01/2020 documented as of this encounter (statuses as of 10/02/2021) [facility] History of Past illness Narrative* Problem Noted Date Resolved Date Elevated glucose 06/21/2020 05/01/2021 Overview: 06/27/20- 3 hour GTT normal. Pam Yarbrough APRN.CNM 06/21/20- Elevated 1 hour at 151. 3 hour ordered. Pam Yarbrough APRN.CNM History of hypotension 01/25/2020 2 Overview: 02/02/2020 Pt has followed up with PCP. Instructed to increase salt intake. 01/25/2020Patient was seen by Dr Carlos 01/11 to discuss medications for low blood pressure. She states she was having syncope from low blood pressure. TKRN Uterine size-date discrepancy, third trimester 0 04/19/2018 02/02/2020 Overview: 04/19/18-Growth U/S at 31w6d, AGA, BRIANNA 12.8, 21st percentile. Will continue to watch fundal height. Consider growth U/S closer to 39 weeks. Alejandra Perdomo APRN.CNM Encounter for supervision of normal in teen primigravida, antepartum 04/05/2018 08/01/2020 documented as of this encounter (statuses as of 10/16/2021) [facility] History of Past illness Narrative* Problem Noted Date Resolved Date Elevated glucose 06/21/2020 05/01/2021 Overview: 06/27/20- 3 hour GTT normal. Pam Yarbrough APRN.CNM 06/21/20- Elevated 1 hour at 151. 3 hour ordered. Pam Yarbrough APRN.CNM History of hypotension 01/25/2020 2 Overview: 02/02/2020 Pt has followed up with PCP. Instructed to increase salt intake. 01/25/2020Patient was seen by Dr Carlos 01/11 to discuss medications for low blood pressure. She states she was having syncope from low blood pressure. TKRN Uterine size-date discrepancy, third trimester 0 04/19/2018 02/02/2020 Overview: 04/19/18-Growth U/S at 31w6d, AGA, BRIANNA 12.8, 21st percentile. Will continue to watch fundal height. Consider growth U/S closer to 39 weeks. Alejandra Perdomo APRN.CNM Encounter for supervision of normal in teen primigravida, antepartum 04/05/2018 08/01/2020 documented as of this encounter (statuses as of 10/16/2021) [facility] History of Past illness Narrative* Problem Noted Date Resolved Date Elevated glucose 06/21/2020 05/01/2021 Overview: 06/27/20- 3 hour GTT normal. Pam Yarbrough APRN.CNM 06/21/20- Elevated 1 hour at 151. 3 hour ordered. Pam Yarbrough APRN.CNM History of hypotension 01/25/2020 Overview: 02/02/2020 Pt has followed up with PCP. Instructed to increase salt intake. 01/25/2020Patient was seen by Dr Carlos 01/11 to discuss medications for low blood pressure. She states she was having syncope from low blood pressure. TKRN Uterine size-date discrepancy, third trimester 0 04/19/2018 02/02/2020 Overview: 04/19/18-Growth U/S at 31w6d, AGA, BRIANNA 12.8, 21st percentile. Will continue to watch fundal height. Consider growth U/S closer to 39 weeks. Alejandra Perdomo APRN.CNM Encounter for supervision of normal in teen primigravida, antepartum 04/05/2018 08/01/2020 documented as of this encounter (statuses as of 10/23/2021) [facility] History of Past illness Narrative* Problem Noted Date Resolved Date Elevated glucose 06/21/2020 05/01/2021 Overview: 06/27/20- 3 hour GTT normal. Pam Yarbrough APRN.CNM 06/21/20- Elevated 1 hour at 151. 3 hour ordered. aPm Yarbrough APRN.CNM History of hypotension 01/25/2020 2 Overview: 02/02/2020 Pt has followed up with PCP. Instructed to increase salt intake. 01/25/2020Patient was seen by Dr Carlos 01/11 to discuss medications for low blood pressure. She states she was having syncope from low blood pressure. TKRN Uterine size-date discrepancy, third trimester 0 04/19/2018 02/02/2020 Overview: 04/19/18-Growth U/S at 31w6d, AGA, BRIANNA 12.8, 21st percentile. Will continue to watch fundal height. Consider growth U/S closer to 39 weeks. Alejandra Perdomo APRN.CNM Encounter for supervision of normal in teen primigravida, antepartum 04/05/2018 08/01/2020 documented as of this encounter (statuses as of 10/30/2021) [facility] History of Past illness Narrative* Problem Noted Date Resolved Date Elevated glucose 06/21/2020 05/01/2021 Overview: 06/27/20- 3 hour GTT normal. Pam Yarbrough APRN.CNM 06/21/20- Elevated 1 hour at 151. 3 hour ordered. Pam Yarbrough APRN.CNM History of hypotension 01/25/2020 2 Overview: 02/02/2020 Pt has followed up with PCP. Instructed to increase salt intake. 01/25/2020Patient was seen by Dr Carlos 01/11 to discuss medications for low blood pressure. She states she was having syncope from low blood pressure. TKRN Uterine size-date discrepancy, third trimester 0 04/19/2018 02/02/2020 Overview: 04/19/18-Growth U/S at 31w6d, AGA, BRIANNA 12.8, 21st percentile. Will continue to watch fundal height. Consider growth U/S closer to 39 weeks. Alejandra Perdomo APRN.CNM Encounter for supervision of normal in teen primigravida, antepartum 04/05/2018 08/01/2020 documented as of this encounter (statuses as of 10/30/2021) [facility] History of Past illness Narrative* Problem Noted Date Resolved Date Elevated glucose 06/21/2020 05/01/2021 Overview: 06/27/20- 3 hour GTT normal. Pam Yarbrough APRN.CNM 06/21/20- Elevated 1 hour at 151. 3 hour ordered. Pam Yarbrough APRN.CNM History of hypotension 01/25/2020 2 Overview: 02/02/2020 Pt has followed up with PCP. Instructed to increase salt intake. SW 01/25/2020Patient was seen by Dr Carlos 01/11 to discuss medications for low blood pressure. She states she was having syncope from low blood pressure. TKRN Uterine size-date discrepancy, third trimester 0 04/19/2018 02/02/2020 Overview: 04/19/18-Growth U/S at 31w6d, AGA, BRIANNA 12.8, 21st percentile. Will continue to watch fundal height. Consider growth U/S closer to 39 weeks. Alejandra Perdomo APRN.CNM Encounter for supervision of normal in teen primigravida, antepartum 04/05/2018 08/01/2020 documented as of this encounter (statuses as of 11/06/2021) [facility] History of Past illness Narrative* Problem Noted Date Resolved Date Elevated glucose 06/21/2020 05/01/2021 Overview: 06/27/20- 3 hour GTT normal. Pam Yarbrough APRN.CNM 06/21/20- Elevated 1 hour at 151. 3 hour ordered. Pam Yarbrough APRN.CNM History of hypotension 01/25/2020 2 Overview: 02/02/2020 Pt has followed up with PCP. Instructed to increase salt intake. 01/25/2020Patient was seen by Dr Carlos 01/11 to discuss medications for low blood pressure. She states she was having syncope from low blood pressure. TKRN Uterine size-date discrepancy, third trimester 0 04/19/2018 02/02/2020 Overview: 04/19/18-Growth U/S at 31w6d, AGA, BRIANNA 12.8, 21st percentile. Will continue to watch fundal height. Consider growth U/S closer to 39 weeks. Alejandra Perdomo APRN.CNM Encounter for supervision of normal in teen primigravida, antepartum 04/05/2018 08/01/2020 documented as of this encounter (statuses as of 11/06/2021) [facility] History of Past illness Narrative* Problem Noted Date Resolved Date Elevated glucose 06/21/2020 05/01/2021 Overview: 06/27/20- 3 hour GTT normal. Pam Yarbrough APRN.CNM 06/21/20- Elevated 1 hour at 151. 3 hour ordered. Pam Yarbrough APRN.CNM History of hypotension 01/25/2020 Overview: 02/02/2020 Pt has followed up with PCP. Instructed to increase salt intake. SW 01/25/2020Patient was seen by Dr Carlos 01/11 to discuss medications for low blood pressure. She states she was having syncope from low blood pressure. TKRN Uterine size-date discrepancy, third trimester 0 04/19/2018 02/02/2020 Overview: 04/19/18-Growth U/S at 31w6d, AGA, BRIANNA 12.8, 21st percentile. Will continue to watch fundal height. Consider growth U/S closer to 39 weeks. Alejandra Perdomo APRN.CNM Encounter for supervision of normal in teen primigravida, antepartum 04/05/2018 08/01/2020 documented as of this encounter (statuses as of 11/10/2021) [facility] History of Past illness Narrative* Problem Noted Date Resolved Date Elevated glucose 06/21/2020 05/01/2021 Overview: 06/27/20- 3 hour GTT normal. Pam Yarbrough APRN.CNM 06/21/20- Elevated 1 hour at 151. 3 hour ordered. Pam Yarbrough APRN.CNM History of hypotension 01/25/2020 2 Overview: 02/02/2020 Pt has followed up with PCP. Instructed to increase salt intake. 01/25/2020Patient was seen by Dr Carlos 01/11 to discuss medications for low blood pressure. She states she was having syncope from low blood pressure. TKRN Uterine size-date discrepancy, third trimester 0 04/19/2018 02/02/2020 Overview: 04/19/18-Growth U/S at 31w6d, AGA, BRIANNA 12.8, 21st percentile. Will continue to watch fundal height. Consider growth U/S closer to 39 weeks. Alejandra Perdomo APRN.CNM Encounter for supervision of normal in teen primigravida, antepartum 04/05/2018 08/01/2020 documented as of this encounter (statuses as of 11/13/2021) [facility] History of Past illness Narrative* Problem Noted Date Resolved Date Elevated glucose 06/21/2020 05/01/2021 Overview: 06/27/20- 3 hour GTT normal. Pam Yarbrough APRN.CNM 06/21/20- Elevated 1 hour at 151. 3 hour ordered. Pam Yarbrough APRN.CNM History of hypotension 01/25/2020 2 Overview: 02/02/2020 Pt has followed up with PCP. Instructed to increase salt intake. 01/25/2020Patient was seen by Dr Carlos 01/11 to discuss medications for low blood pressure. She states she was having syncope from low blood pressure. TKRN Uterine size-date discrepancy, third trimester 0 04/19/2018 02/02/2020 Overview: 04/19/18-Growth U/S at 31w6d, AGA, BRIANNA 12.8, 21st percentile. Will continue to watch fundal height. Consider growth U/S closer to 39 weeks. Alejandra Perdomo APRN.CNM Encounter for supervision of normal in teen primigravida, antepartum 04/05/2018 08/01/2020 documented as of this encounter (statuses as of 11/13/2021) [facility] History of Past illness Narrative* Problem Noted Date Resolved Date Elevated glucose 06/21/2020 05/01/2021 Overview: 06/27/20- 3 hour GTT normal. Pam Yarbrough APRN.CNM 06/21/20- Elevated 1 hour at 151. 3 hour ordered. Pam Yarbrough APRN.CNM History of hypotension 01/25/2020 2 Overview: 02/02/2020 Pt has followed up with PCP. Instructed to increase salt intake. SW 01/25/2020Patient was seen by Dr Carlos 01/11 to discuss medications for low blood pressure. She states she was having syncope from low blood pressure. TKRN Uterine size-date discrepancy, third trimester 0 04/19/2018 02/02/2020 Overview: 04/19/18-Growth U/S at 31w6d, AGA, BRIANNA 12.8, 21st percentile. Will continue to watch fundal height. Consider growth U/S closer to 39 weeks. Alejandra Perdomo APRN.CNM Encounter for supervision of normal in teen primigravida, antepartum 04/05/2018 08/01/2020 documented as of this encounter (statuses as of 11/14/2021) [facility] History of Past illness Narrative* Problem Noted Date Resolved Date Elevated glucose 06/21/2020 05/01/2021 Overview: 06/27/20- 3 hour GTT normal. Pam Yarbrough APRN.CNM 06/21/20- Elevated 1 hour at 151. 3 hour ordered. Pam Yarbrough APRN.CNM History of hypotension 01/25/2020 2 Overview: 02/02/2020 Pt has followed up with PCP. Instructed to increase salt intake. 01/25/2020Patient was seen by Dr Carlos 01/11 to discuss medications for low blood pressure. She states she was having syncope from low blood pressure. TKRN Uterine size-date discrepancy, third trimester 0 04/19/2018 02/02/2020 Overview: 04/19/18-Growth U/S at 31w6d, AGA, BRIANNA 12.8, 21st percentile. Will continue to watch fundal height. Consider growth U/S closer to 39 weeks. Alejandra Perdomo APRN.CNM Encounter for supervision of normal in teen primigravida, antepartum 04/05/2018 08/01/2020 documented as of this encounter (statuses as of 11/17/2021) [facility] History of Past illness Narrative* Problem Noted Date Resolved Date Elevated glucose 06/21/2020 05/01/2021 Overview: 06/27/20- 3 hour GTT normal. Pam Yarbrough APRN.CNM 06/21/20- Elevated 1 hour at 151. 3 hour ordered. Pam Yarbrough APRN.CNM History of hypotension 01/25/2020 Overview: 02/02/2020 Pt has followed up with PCP. Instructed to increase salt intake. 01/25/2020Patient was seen by Dr Carlos 01/11 to discuss medications for low blood pressure. She states she was having syncope from low blood pressure. TKRN Uterine size-date discrepancy, third trimester 0 04/19/2018 02/02/2020 Overview: 04/19/18-Growth U/S at 31w6d, AGA, BRIANNA 12.8, 21st percentile. Will continue to watch fundal height. Consider growth U/S closer to 39 weeks. Alejandra Perdomo APRN.CNM Encounter for supervision of normal in teen primigravida, antepartum 04/05/2018 08/01/2020 documented as of this encounter (statuses as of 12/24/2021) [facility] History of Past illness Narrative* Problem Noted Date Resolved Date Elevated glucose 06/21/2020 05/01/2021 Overview: 06/27/20- 3 hour GTT normal. Pam Yarbrough APRN.CNM 06/21/20- Elevated 1 hour at 151. 3 hour ordered. Pam Yarbrough APRN.CNM History of hypotension 01/25/2020 Overview: 02/02/2020 Pt has followed up with PCP. Instructed to increase salt intake. 01/25/2020Patient was seen by Dr Carlos 01/11 to discuss medications for low blood pressure. She states she was having syncope from low blood pressure. TKRN Uterine size-date discrepancy, third trimester 0 04/19/2018 02/02/2020 Overview: 04/19/18-Growth U/S at 31w6d, AGA, BRIANNA 12.8, 21st percentile. Will continue to watch fundal height. Consider growth U/S closer to 39 weeks. Alejandra Perdomo APRN.CNM Encounter for supervision of normal in teen primigravida, antepartum 04/05/2018 08/01/2020 documented as of this encounter (statuses as of 03/02/2022) [facility] History of Past illness Narrative* Problem Noted Date Resolved Date Elevated glucose 06/21/2020 05/01/2021 Overview: 06/27/20- 3 hour GTT normal. Pam Yarbrough APRN.CNM 06/21/20- Elevated 1 hour at 151. 3 hour ordered. Pam Yarbrough APRN.CNM History of hypotension 01/25/2020 2 Overview: 02/02/2020 Pt has followed up with PCP. Instructed to increase salt intake. 01/25/2020Patient was seen by Dr Carlos 01/11 to discuss medications for low blood pressure. She states she was having syncope from low blood pressure. TKRN Uterine size-date discrepancy, third trimester 0 04/19/2018 02/02/2020 Overview: 04/19/18-Growth U/S at 31w6d, AGA, BRIANNA 12.8, 21st percentile. Will continue to watch fundal height. Consider growth U/S closer to 39 weeks. Alejandra Perdomo APRN.CNM Encounter for supervision of normal in teen primigravida, antepartum 04/05/2018 08/01/2020 documented as of this encounter (statuses as of 05/13/2022) [facility] History of Past illness Narrative* Problem Noted Date Resolved Date Elevated glucose 06/21/2020 05/01/2021 Overview: 5- 3 hour GTT normal. Pam Yarbrough APRN.CNM 06/21/20- Elevated 1 hour at 151. 3 hour ordered. Pam Yarbrough APRN.CNM History of hypotension 01/25/2020 Overview: 02/02/2020 Pt has followed up with PCP. Instructed to increase salt intake. SW 01/25/2020Patient was seen by Dr Carlos 01/11 to discuss medications for low blood pressure. She states she was having syncope from low blood pressure. TKRN Uterine size-date discrepancy, third trimester 0 04/19/2018 02/02/2020 Overview: 04/19/18-Growth U/S at 31w6d, AGA, BRIANNA 12.8, 21st percentile. Will continue to watch fundal height. Consider growth U/S closer to 39 weeks. Alejandra Perdomo APRN.CNM Encounter for supervision of normal in teen primigravida, antepartum 04/05/2018 08/01/2020 documented as of this encounter (statuses as of 05/28/2022) [facility] History of Past illness Narrative* Problem Noted Date Resolved Date Elevated glucose 06/21/2020 05/01/2021 Overview: 06/27/20- 3 hour GTT normal. Pam Yarbrough APRN.CNM 06/21/20- Elevated 1 hour at 151. 3 hour ordered. Pam Yarbrough APRN.CNM History of hypotension 01/25/2020 2 Overview: 02/02/2020 Pt has followed up with PCP. Instructed to increase salt intake. 01/25/2020Patient was seen by Dr Carlos 01/11 to discuss medications for low blood pressure. She states she was having syncope from low blood pressure. TKRN Uterine size-date discrepancy, third trimester 0 04/19/2018 02/02/2020 Overview: 04/19/18-Growth U/S at 31w6d, AGA, BRIANNA 12.8, 21st percentile. Will continue to watch fundal height. Consider growth U/S closer to 39 weeks. Alejandra Perdomo APRN.CNM Encounter for supervision of normal in teen primigravida, antepartum 04/05/2018 08/01/2020 documented as of this encounter (statuses as of 06/03/2022) [facility] History of Past illness Narrative* Problem Noted Date Resolved Date Elevated glucose 06/21/2020 05/01/2021 Overview: 06/27/20- 3 hour GTT normal. Pam Yarbrough APRN.CNM 06/21/20- Elevated 1 hour at 151. 3 hour ordered. Pam Yarbrough APRN.CNM History of hypotension 01/25/2020 2 Overview: 02/02/2020 Pt has followed up with PCP. Instructed to increase salt intake. 01/25/2020Patient was seen by Dr Carlos 01/11 to discuss medications for low blood pressure. She states she was having syncope from low blood pressure. TKRN Uterine size-date discrepancy, third trimester 0 04/19/2018 02/02/2020 Overview: 04/19/18-Growth U/S at 31w6d, AGA, BRIANNA 12.8, 21st percentile. Will continue to watch fundal height. Consider growth U/S closer to 39 weeks. Alejandra Perdomo APRN.CNM Encounter for supervision of normal in teen primigravida, antepartum 04/05/2018 08/01/2020 documented as of this encounter (statuses as of 06/30/2022) [facility] History of Past illness Narrative* Problem Noted Date Resolved Date Elevated glucose 06/21/2020 05/01/2021 Overview: 06/27/20- 3 hour GTT normal. Pam Yarbrough APRN.CNM 06/21/20- Elevated 1 hour at 151. 3 hour ordered. Pam Yarbrough APRN.CNM History of hypotension 01/25/2020 Overview: 02/02/2020 Pt has followed up with PCP. Instructed to increase salt intake. SW 01/25/2020Patient was seen by Dr Carlos 01/11 to discuss medications for low blood pressure. She states she was having syncope from low blood pressure. TKRN Uterine size-date discrepancy, third trimester 0 04/19/2018 02/02/2020 Overview: 04/19/18-Growth U/S at 31w6d, AGA, BRIANNA 12.8, 21st percentile. Will continue to watch fundal height. Consider growth U/S closer to 39 weeks. Alejandra Perdomo APRN.CNM Encounter for supervision of normal in teen primigravida, antepartum 04/05/2018 08/01/2020 documented as of this encounter (statuses as of 07/01/2022) [facility] Diagnosis Supervision of other normal , antepartum- Primary 12 weeks gestation of state, incidental Encounter for screening of mother Unspecified screening [facility] Diagnosis Encounter for (NT) nuchal translucency scan- Primary Other specified screening 12 weeks gestation of state, incidental [facility] Diagnosis 16 weeks gestation of - Primary state, incidental Supervision of other normal , antepartum [facility] Diagnosis Encounter for anatomic survey- Primary 19 weeks gestation of state, incidental History of delivery [facility] Diagnosis 19 weeks gestation of - Primary state, incidental Supervision of other normal , antepartum [facility] Diagnosis Encounter for follow-up ultrasound of anatomy- Primary [facility] Diagnosis Encounter for anatomic survey- Primary 22 weeks gestation of state, incidental [facility] Diagnosis 24 weeks gestation of - Primary state, incidental Uterine size-date discrepancy, second trimester [facility] Diagnosis Encounter for follow-up ultrasound of anatomy- Primary 23 weeks gestation of state, incidental [facility] Diagnosis 27 weeks gestation of - Primary state, incidental Supervision of high risk in second trimester Unspecified high-risk Need for vaccination Need for prophylactic vaccination and inoculation against unspecified single disease Request for sterilization Uterine size-date discrepancy, third trimester [facility] Diagnosis 29 weeks gestation of - Primary state, incidental Anemia complicating , third trimester Heartburn during in third trimester Uterine size-date discrepancy, third trimester [facility] Diagnosis IUGR (intrauterine growth restriction) affecting care of mother, third trimester, fetus 1- Primary 31 weeks gestation of state, incidental [facility] Diagnosis Supervision of high risk in third trimester- Primary Unspecified high-risk 31 weeks gestation of state, incidental Poor growth affecting management of mother in first trimester, single or unspecified fetus [facility] Diagnosis IUGR (intrauterine growth restriction) affecting care of mother, third trimester, fetus 1- Primary 32 weeks gestation of state, incidental [facility] Diagnosis Poor growth affecting management of mother in third trimester, single or unspecified fetus- Primary 33 weeks gestation of state, incidental [facility] Diagnosis 33 weeks gestation of - Primary state, incidental Supervision of high risk in third trimester Unspecified high-risk Poor growth affecting management of mother in third trimester, single or unspecified fetus [facility] Diagnosis Poor growth affecting management of mother in first trimester, single or unspecified fetus- Primary [facility]* Diagnosis Intrauterine growth restriction (IUGR) affecting care of mother, third trimester, single gestation- Primary 34 weeks gestation of state, incidental [facility] Diagnosis Poor growth affecting management of mother in first trimester, single or unspecified fetus- Primary 35 weeks gestation of state, incidental Poor growth affecting management of mother in third trimester, single or unspecified fetus [facility] Diagnosis Poor growth affecting management of mother in third trimester, single or unspecified fetus- Primary 35 weeks gestation of state, incidental [facility] Diagnosis care and examination- Primary Routine follow-up Anxiety Anxiety state, unspecified care and examination of lactating mother [facility]* Diagnosis Concentration deficit- Primary Attention or concentration deficit Oral contraceptive pill surveillance Surveillance of previously prescribed contraceptive pill [facility] Diagnosis Concentration deficit Attention or concentration deficit [facility] Diagnosis Pain, dental- Primary Unspecified disorder of the teeth and supporting structures [facility] Diagnosis Bacterial sinusitis- Primary Unspecified sinusitis (chronic) [facility]* Diagnosis 13 weeks gestation of - Primary state, incidental Short interval between pregnancies affecting , antepartum Twin gestation in first trimester, unspecified multiple gestation type Monochorionic diamniotic twin , antepartum Twin , antepartum [facility] Diagnosis 16 weeks gestation of - Primary state, incidental Short interval between pregnancies affecting , antepartum Monochorionic diamniotic twin , antepartum Twin , antepartum [facility] Diagnosis Monochorionic diamniotic twin , antepartum- Primary Twin , antepartum 16 weeks gestation of state, incidental [facility] Diagnosis Exposure to scabies- Primary Contact with or exposure to other communicable diseases [facility] Diagnosis Monochorionic diamniotic twin , antepartum- Primary Twin , antepartum 18 weeks gestation of state, incidental [facility] Diagnosis Monochorionic diamniotic twin , antepartum Twin , antepartum [facility] Diagnosis Monochorionic diamniotic twin , antepartum- Primary Twin , antepartum 22 weeks gestation of state, incidental History of delivery, currently with history of pre-term labor [facility] Diagnosis Monochorionic diamniotic twin in second trimester- Primary Twin , antepartum 23 weeks gestation of state, incidental History of delivery, currently with history of pre-term labor Supervision of other high risk pregnancies, second trimester Dyspepsia Dyspepsia and other specified disorders of function of stomach [facility] Diagnosis Monochorionic diamniotic twin , antepartum- Primary Twin , antepartum History of delivery 23 weeks gestation of state, incidental [facility]* Diagnosis Monochorionic diamniotic twin in second trimester- Primary Twin , antepartum Supervision of other high risk pregnancies, second trimester 25 weeks gestation of state, incidental [facility] Diagnosis 25 weeks gestation of - Primary state, incidental Monochorionic diamniotic twin in second trimester Twin , antepartum Vaginal itching Pruritus of genital organs [facility] Diagnosis BV (bacterial vaginosis)- Primary Vaginitis and vulvovaginitis, unspecified [facility]* Diagnosis Monochorionic diamniotic twin , antepartum Twin , antepartum Supervision of other high risk pregnancies, second trimester [facility] Diagnosis Monochorionic diamniotic twin gestation in second trimester- Primary 27 weeks gestation of state, incidental [facility]* Diagnosis Maternal iron deficiency anemia complicating , second trimester Impaired intestinal absorption Unspecified intestinal malabsorption [facility] Diagnosis Monochorionic diamniotic twin in second trimester- Primary Twin , antepartum Anemia during in second trimester [facility] Diagnosis Monochorionic diamniotic twin in second trimester- Primary Twin , antepartum Anemia during in second trimester 27 weeks gestation of state, incidental Need for vaccination Need for prophylactic vaccination and inoculation against unspecified single disease Need for Tdap vaccination Need for prophylactic vaccination with combined [id number] (DTP) vaccine [facility]* Diagnosis Monochorionic diamniotic twin in third trimester- Primary Twin , antepartum 29 weeks gestation of state, incidental History of delivery, currently with history of pre-term labor [facility] Diagnosis Monochorionic diamniotic twin in second trimester- Primary Twin , antepartum Supervision of other high risk pregnancies, second trimester 29 weeks gestation of state, incidental [facility]* Diagnosis Abnormal glucose complicating - Primary Abnormal maternal glucose tolerance, complicating , childbirth, or the puerperium, unspecified as to episode of care [facility]* Diagnosis Maternal care for (suspected) abnormality and damage, unspecified, fetus 1 [O35.9XX1]- Primary [facility]* Diagnosis Monochorionic diamniotic twin gestation in third trimester- Primary [facility] Diagnosis Monochorionic diamniotic twin gestation in third trimester- Primary 31 weeks gestation of state, incidental [facility]* Diagnosis Monochorionic diamniotic twin gestation in third trimester- Primary Supervision of other high risk pregnancies, second trimester 31 weeks gestation of state, incidental [facility]* Diagnosis Monochorionic diamniotic twin gestation in third trimester- Primary 32 weeks gestation of state, incidental [facility]* Diagnosis NST (non-stress test) reactive on surveillance- Primary Other specified screening Monochorionic diamniotic twin gestation in third trimester [facility] Diagnosis Monochorionic diamniotic twin gestation in third trimester- Primary Polyhydramnios, third trimester, fetus 2 Supervision of high risk in third trimester Unspecified high-risk History of delivery, currently with history of pre-term labor 33 weeks gestation of state, incidental documented in this encounter [facility] for referral (narrative)* Diagnostic Procedure Only (Routine) - Authorized Specialty Diagnoses / Procedures Referred By Contac t Referred To Contact [facility] Diagnoses 16 weeks gestation of Supervision of other normal , antepartum Procedures OBSTETRIC ULTRASOUND WHI US PREG UTERUS AFTER 1ST TRIMEST 1 GESTATION Yuliana Carlos MD [address] [place] [address] [place] [id number] Referral ID Status Reason Start Date Expiration Date Visits Requested Visits Authorized [id number] Authorized Auto-Generat ed Referral 07/03/2021 07/03/2022 1 1 [facility] for referral (narrative)* Diagnostic Procedure Only (Routine) - Authorized Specialty Diagnoses / Procedures Referred By Contac t Referred To Contact [facility] Diagnoses Encounter for follow-up ultrasound of anatomy Procedures OBSTETRIC ULTRASOUND WHI US PREG UTERUS AFTER 1ST TRIMEST GESTATION Yuliana Carlos MD [address] [place] [address] [facility] [address] [place] [address] Referral ID Status Reason Start Date Expiration Date Visits Requested Visits Authorized [id number] Authorized Auto-Generat ed Referral 08/13/2021 08/13/2022 1 1 T [facility] for referral (narrative)* Diagnostic Procedure Only (Routine) - Pending Review Specialty Diagnoses / Procedures Referred By Contac t Referred To Contact [facility] Diagnoses Encounter for follow-up ultrasound of anatomy Procedures OBSTETRIC ULTRASOUND WHI US PREG UTERUS AFTER 1ST TRIMEST GESTATION Yuliana Carlos MD [address] [place] [address] [address] Referral ID Status Reason Start Date Expiration Date Visits Requested Visits Authorized [id number] Pending Review Auto-Generat ed Referral 08/18/2021 08/18/2022 1 1 [facility] for referral (narrative)* Diagnostic Procedure Only (Routine) - Pending Review Specialty Diagnoses / Procedures Referred By Contac t Referred To Contact [facility] Diagnoses Uterine size-date discrepancy, third trimester Procedures OBSTETRIC ULTRASOUND WHI US PREG UTERUS AFTER 1ST TRIMEST GESTATION Yuliana Carlos MD [address] [place] [address] [address] Referral ID Status Reason Start Date Expiration Date Visits Requested Visits Authorized [id number] Pending Review Auto-Generat ed Referral 09/18/2021 09/18/2022 1 1 T [facility] for referral (narrative)* Diagnostic Procedure Only (Routine) - Authorized Specialty Diagnoses / Procedures Referred By Contac t Referred To Contact [facility] Diagnoses 29 weeks gestation of Procedures OBSTETRIC ULTRASOUND WHI US PREG UTERUS AFTER 1ST TRIMEST GESTATION Pam Yarbrough APRN.CNM [address] [place] [address] [address] Referral ID Status Reason Start Date Expiration Date Visits Requested Visits Authorized [id number] Authorized Auto-Generat ed Referral 10/02/2021 10/02/2022 1 1 T [facility] for referral (narrative)* Diagnostic Procedure Only (Routine) - Authorized Specialty Diagnoses / Procedures Referred By Contac t Referred To Contact [facility] Diagnoses 31 weeks gestation of Poor growth affecting management of mother in first trimester, single or unspecified fetus Procedures OBSTETRIC ULTRASOUND WHI US PREG UTERUS AFTER 1ST TRIMEST GESTATION Kimani Núñez MD [address] [place] [address] [facility] [employer] [place] [address] Referral ID Status Reason Start Date Expiration Date Visits Requested Visits Authorized [id number] Authorized Auto-Generat ed Referral 10/16/2021 10/16/2022 1 1 * Diagnostic Procedure Only (Routine) - Pending Review Specialty Diagnoses / Procedures Referred By Contac t Referred To Contact [facility] Diagnoses 31 weeks gestation of Poor growth affecting management of mother in first trimester, single or unspecified fetus Procedures OBSTETRIC ULTRASOUND WHI US PREG UTERUS AFTER 1ST TRIMEST GESTATION Kimani Núñez MD [address] [place] [address] [facility] [place] [address] Referral ID Status Reason Start Date Expiration Date Visits Requested Visits Authorized [id number] Pending Review Auto-Generat ed Referral 10/16/2021 10/16/2022 1 1 [facility] for referral (narrative)* Diagnostic Procedure Only (Routine) - Authorized Specialty Diagnoses / Procedures Referred By Contac t Referred To Contact [facility] Diagnoses 13 weeks gestation of Monochorionic diamniotic twin , antepartum Procedures OBSTETRIC ULTRASOUND WHI US PREG UTERUS AFTER 1ST TRIMEST GESTATION Kimani Núñez MD [address] [place] [address] [facility] [address] [place] [address] Referral ID Status Reason Start Date Expiration Date Visits Requested Visits Authorized [id number] Authorized Auto-Generat ed Referral 08/04/2022 08/04/2023 1 1 * Consult, Test, Treat (Routine) - Authorized Specialty Diagnoses / Procedures Referred By Contac t Referred To Contact Diagnoses 13 weeks gestation of Short interval between pregnancies affecting , antepartum Twin gestation in first trimester, unspecified multiple gestation type Procedures CONSULT TO MATERNAL MEDI OFFICE/OUTPATIENT [facility] HIGH MDM 60-74 MINUTES Kimani Núñez MD [address] [place] [address] Referral ID Status Reason Start Date Expiration Date Visits Requested Visits Authorized [id number] Authorized PCP Requested Referral Auto-Generate d Referral 08/04/2022 08/04/2023 1 1 * Diagnostic Procedure Only (Routine) - Pending Review Specialty Diagnoses / Procedures Referred By Contac t Referred To Contact [facility] Diagnoses 13 weeks gestation of Short interval between pregnancies affecting , antepartum Twin gestation in first trimester, unspecified multiple gestation type Procedures OBSTETRIC ULTRASOUND WHI US PREG UTERUS AFTER 1ST TRIMEST GESTATION Kimani Núñez MD [address] [place] [address] [address] Referral ID Status Reason Start Date Expiration Date Visits Requested Visits Authorized [id number] Pending Review Auto-Generat ed Referral 08/04/2022 08/04/2023 1 1 [facility] for referral (narrative)* Diagnostic Procedure Only (Routine) - Authorized Specialty Diagnoses / Procedures Referred By Contac t Referred To Contact [facility] Diagnoses Monochorionic diamniotic twin , antepartum Procedures OBSTETRIC ULTRASOUND WHI US PREG UTERUS AFTER 1ST TRIMEST GESTATION Kimani Núñez MD [address] [place] [address] [facility] [address] [address] Referral ID Status Reason Start Date Expiration Date Visits Requested Visits Authorized [id number] Authorized Auto-Generat ed Referral 08/27/2022 08/27/2023 10 1 [facility] for referral (narrative)* Diagnostic Procedure Only (Routine) - Authorized Specialty Diagnoses / Procedures Referred By Contac t Referred To Contact [facility] Diagnoses 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 [address] [facility] [address] [place] [address] Referral ID Status Reason Start Date Expiration Date Visits Requested Visits Authorized [id number] Authorized Auto-Generat ed Referral 10/14/2022 10/14/2023 12 1 [facility] for referral (narrative)* Diagnostic Procedure Only (Routine) - Authorized Specialty Diagnoses / Procedures Referred By Contac t Referred To Contact [facility] Diagnoses Monochorionic diamniotic twin gestation in third trimester Procedures OBSTETRIC ULTRASOUND WHI US PREG UTERUS AFTER 1ST TRIMEST GESTATION Kimani Núñez MD [address] [place] [address] [facility] [address] [place] [address] Referral ID Status Reason Start Date Expiration Date Visits Requested Visits Authorized [id number] Authorized Auto-Generat ed Referral 3 12/10/2023 2 1 T [facility] for visit Narrative* Diagnostic Procedure Only (Routine) - Closed Specialty Diagnoses / Procedures Referred By Contac t Referred To Contact [facility] Diagnoses Monochorionic diamniotic twin , antepartum Supervision of other high risk pregnancies, second trimester Procedures OBSTETRIC ULTRASOUND WHI US PREG UTERUS AFTER 1ST TRIMEST GESTATION Chapincito Zavala MD [address] [place] [address] [address] Referral ID Status Reason Start Date Expiration Date V isits Requested Visits Authorized [id number] Closed Auto-Generate d Referral 09/15/2022 09/15/2023 1 1 [facility] Diagnostic Procedure Only (Routine) - Closed Specialty Diagnoses / Procedures Referred By Sylvester hernandez Referred To Contact [facility] Diagnoses Monochorionic diamniotic twin gestation in third trimester Procedures OBSTETRIC ULTRASOUND WHI US PREG UTERUS AFTER 1ST TRIMEST GESTATION Kimani Núñez MD [address] [place] [address] [address] Referral ID Status Reason Start Date Expiration Date V isits Requested Visits Authorized [id number] Closed Auto-Generate d Referral 12/10/2022 12/10/2023 2 1 [facility] Summary Purpose Family History No Family History Records FoundNo Family History Records FoundNo Family History Records FoundNo Family History Records FoundNo Family History Records FoundNo Family History Records FoundNo Family History Records FoundNo Family History Records FoundNo Family History Records Found Advance Directives No Advanced Directives Records FoundDocuments on File Type Date Recorded Patient Equipment Operation Instructor 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 Advance Directive(s) 05/13/2021 1:53 PM Advance Directive(s) 03/02/2019 4:46 PM Advance Directive(s) 04/06/2018 9:17 AM Advance Directive(s) 01/26/2018 10:31 AM Advance Directive(s) 10/07/2017 5:53 PM Advance Directive(s) 08/06/2017 12:10 AM Documents on File Type Date Recorded Patient Equipment Operation Instructor 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 Advance Directive(s) 05/13/2021 1:53 PM Advance Directive(s) 03/02/2019 4:46 PM Advance Directive(s) 04/06/2018 9:17 AM Advance Directive(s) 01/26/2018 10:31 AM Advance Directive(s) 10/07/2017 5:53 PM Advance Directive(s) 08/06/2017 12:10 AM Health Concerns Problem Noted Date [facility] - [facility] 06/22 Education - [place] 07/10/2022 Problem Noted Date [facility] - [facility] 06/22 Education - [place] 07/10/2022 Problem Noted Date [facility] - [facility] 06/22 Education - [place] 07/10/2022 Problem Noted Date [facility] - [facility] 06/22 Education - [place] 07/10/2022 Problem Noted Date Diagnosed Date [facility] - [facility] 07/10/2022 Education - [place] 07/10/2022 Problem Noted Date Diagnosed Date [facility] - [facility] 07/10/2022 Education - [place] 07/10/2022 Problem Noted Date Diagnosed Date [facility] - [facility] 07/10/2022 Education - [place] 07/10/2022 Problem Noted Date Diagnosed Date [facility] - [facility] 07/10/2022 Education - [place] 07/10/2022 Problem Noted Date Diagnosed Date [facility] Education - [facility] 07/10/2022 Education - [place] 07/10/2022 Problem Noted Date Diagnosed Date [facility] - [facility] 07/10/2022 Education - [place] 07/10/2022 Problem Noted Date Diagnosed Date [facility] - [facility] 07/10/2022 Education - [place] 07/10/2022 Problem Noted Date Diagnosed Date [facility] - [facility] 07/10/2022 Education - [place] 07/10/2022 Problem Noted Date Diagnosed Date [facility] Education - [facility] 07/10/2022 Education - [place] 07/10/2022 Problem Noted Date Diagnosed Date [facility] Education - [facility] 07/10/2022 Education - [place] 07/10/2022 Problem Noted Date Diagnosed Date [facility] - [facility] 07/10/2022 Education - [place] 07/10/2022 Problem Noted Date Diagnosed Date [facility] - [facility] 07/10/2022 Education - [place] 07/10/2022 Problem Noted Date Diagnosed Date [facility] - [facility] 07/10/2022 Education - [place] 07/10/2022 Problem Noted Date Diagnosed Date [facility] - [facility] 07/10/2022 Education - [place] 07/10/2022 Problem Noted Date Diagnosed Date [facility] - [facility] 07/10/2022 Education - [place] 07/10/2022 Problem Noted Date Diagnosed Date [facility] - [facility] 07/10/2022 Education - [place] 07/10/2022 Problem Noted Date Diagnosed Date [facility] - [facility] 07/10/2022 Education - [place] 07/10/2022 Problem Noted Date Diagnosed Date [facility] - [facility] 07/10/2022 Education - [place] 07/10/2022 Problem Noted Date Diagnosed Date [facility] - [facility] 07/10/2022 Education - [place] 07/10/2022 Problem Noted Date Diagnosed Date [facility] - [facility] 07/10/2022 Education - [place] 07/10/2022 Additional Source Comments INFORMATION SOURCE (unrecogn ized section and content) DATE CREATED AUTHOR AUTHOR'S ORGANIZ ATION 08/23/2017 [facility] DATE CREATED AUTHOR AUTHOR'S ORGANIZ ATION 09/12/2017 [facility] DATE CREATED AUTHOR AUTHOR'S ORGANIZ ATION 12/02/2018 [facility] DATE CREATED AUTHOR AUTHOR'S ORGANIZ ATION 06/18/2021 [facility] DATE CREATED AUTHOR AUTHOR'S ORGANIZ ATION 06/26/2022 [facility] DATE CREATED AUTHOR AUTHOR'S ORGANIZ ATION 10/07/2022 [facility] DATE CREATED AUTHOR AUTHOR'S ORGANIZ ATION 12/24/2022 [facility] DATE CREATED AUTHOR AUTHOR'S ORGANIZ ATION 01/03/2023 [facility] Source Comments (unrecognize d section and content) In the event this informatio n is protected by the Federal Confidentiality of Alcohol and Drug Abuse Patient Records regulations: The Federal rules restrict any use of the information to criminally investigate or prosecute any alcohol or drug abuse patient.[facility] event this information is protected by the Federal Confidentiality of Alcohol and Drug Abuse Patient Records regulations: The Federal rules restrict any use of the information to criminally investigate or prosecute any alcohol or drug abuse patient.[facility] the event this information is protected by the Federal Confidentiality of Alcohol and Drug Abuse Patient Records regulations: The Federal rules restrict any use of the information to criminally investigate or prosecute any alcohol or drug abuse patient.[facility] event this information is protected by the Federal Confidentiality of Alcohol and Drug Abuse Patient Records regulations: The Federal rules restrict any use of the information to criminally investigate or prosecute any alcohol or drug abuse patient.[facility] this information is protected by the Federal Confidentiality of Alcohol and Drug Abuse Patient Records regulations: The Federal rules restrict any use of the information to criminally investigate or prosecute any alcohol or drug abuse patient.[facility] HospitalIn the event this information is protected by the Federal Confidentiality of Alcohol and Drug Abuse Patient Records regulations: The Federal rules restrict any use of the information to criminally investigate or prosecute any alcohol or drug abuse patient.[facility] HospitalIn the event this information is protected by the Federal Confidentiality of Alcohol and Drug Abuse Patient Records regulations: The Federal rules restrict any use of the information to criminally investigate or prosecute any alcohol or drug abuse patient.[facility] HospitalIn the event this information is protected by the Federal Confidentiality of Alcohol and Drug Abuse Patient Records regulations: The Federal rules restrict any use of the information to criminally investigate or prosecute any alcohol or drug abuse patient.[facility] HospitalIn the event this information is protected by the Federal Confidentiality of Alcohol and Drug Abuse Patient Records regulations: The Federal rules restrict any use of the information to criminally investigate or prosecute any alcohol or drug abuse patient.[facility] HospitalIn the event this information is protected by the Federal Confidentiality of Alcohol and Drug Abuse Patient Records regulations: The Federal rules restrict any use of the information to criminally investigate or prosecute any alcohol or drug abuse patient.[facility] HospitalIn the event this information is protected by the Federal Confidentiality of Alcohol and Drug Abuse Patient Records regulations: The Federal rules restrict any use of the information to criminally investigate or prosecute any alcohol or drug abuse patient.[facility] HospitalIn the event this information is protected by the Federal Confidentiality of Alcohol and Drug Abuse Patient Records regulations: The Federal rules restrict any use of the information to criminally investigate or prosecute any alcohol or drug abuse patient.[facility] HospitalIn the event this information is protected by the Federal Confidentiality of Alcohol and Drug Abuse Patient Records regulations: The Federal rules restrict any use of the information to criminally investigate or prosecute any alcohol or drug abuse patient.[facility] HospitalIn the event this information is protected by the Federal Confidentiality of Alcohol and Drug Abuse Patient Records regulations: The Federal rules restrict any use of the information to criminally investigate or prosecute any alcohol or drug abuse patient.[facility] HospitalIn the event this information is protected by the Federal Confidentiality of Alcohol and Drug Abuse Patient Records regulations: The Federal rules restrict any use of the information to criminally investigate or prosecute any alcohol or drug abuse patient.[facility] HospitalIn the event this information is protected by the Federal Confidentiality of Alcohol and Drug Abuse Patient Records regulations: The Federal rules restrict any use of the information to criminally investigate or prosecute any alcohol or drug abuse patient.[facility] HospitalIn the event this information is protected by the Federal Confidentiality of Alcohol and Drug Abuse Patient Records regulations: The Federal rules restrict any use of the information to criminally investigate or prosecute any alcohol or drug abuse patient.[facility] HospitalIn the event this information is protected by the Federal Confidentiality of Alcohol and Drug Abuse Patient Records regulations: The Federal rules restrict any use of the information to criminally investigate or prosecute any alcohol or drug abuse patient.[facility] HospitalIn the event this information is protected by the Federal Confidentiality of Alcohol and Drug Abuse Patient Records regulations: The Federal rules restrict any use of the information to criminally investigate or prosecute any alcohol or drug abuse patient.[facility] HospitalIn the event this information is protected by the Federal Confidentiality of Alcohol and Drug Abuse Patient Records regulations: The Federal rules restrict any use of the information to criminally investigate or prosecute any alcohol or drug abuse patient.[facility] HospitalIn the event this information is protected by the Federal Confidentiality of Alcohol and Drug Abuse Patient Records regulations: The Federal rules restrict any use of the information to criminally investigate or prosecute any alcohol or drug abuse patient.[facility] HospitalIn the event this information is protected by the Federal Confidentiality of Alcohol and Drug Abuse Patient Records regulations: The Federal rules restrict any use of the information to criminally investigate or prosecute any alcohol or drug abuse patient.[facility] HospitalIn the event this information is protected by the Federal Confidentiality of Alcohol and Drug Abuse Patient Records regulations: The Federal rules restrict any use of the information to criminally investigate or prosecute any alcohol or drug abuse patient.[facility] HospitalIn the event this information is protected by the Federal Confidentiality of Alcohol and Drug Abuse Patient Records regulations: The Federal rules restrict any use of the information to criminally investigate or prosecute any alcohol or drug abuse patient.[facility] HospitalIn the event this information is protected by the Federal Confidentiality of Alcohol and Drug Abuse Patient Records regulations: The Federal rules restrict any use of the information to criminally investigate or prosecute any alcohol or drug abuse patient.[facility] HospitalIn the event this information is protected by the Federal Confidentiality of Alcohol and Drug Abuse Patient Records regulations: The Federal rules restrict any use of the information to criminally investigate or prosecute any alcohol or drug abuse patient.[facility] HospitalIn the event this information is protected by the Federal Confidentiality of Alcohol and Drug Abuse Patient Records regulations: The Federal rules restrict any use of the information to criminally investigate or prosecute any alcohol or drug abuse patient.[facility] HospitalIn the event this information is protected by the Federal Confidentiality of Alcohol and Drug Abuse Patient Records regulations: The Federal rules restrict any use of the information to criminally investigate or prosecute any alcohol or drug abuse patient.[facility] HospitalIn the event this information is protected by the Federal Confidentiality of Alcohol and Drug Abuse Patient Records regulations: The Federal rules restrict any use of the information to criminally investigate or prosecute any alcohol or drug abuse patient.[facility] HospitalIn the event this information is protected by the Federal Confidentiality of Alcohol and Drug Abuse Patient Records regulations: The Federal rules restrict any use of the information to criminally investigate or prosecute any alcohol or drug abuse patient.[facility] HospitalIn the event this information is protected by the Federal Confidentiality of Alcohol and Drug Abuse Patient Records regulations: The Federal rules restrict any use of the information to criminally investigate or prosecute any alcohol or drug abuse patient.[facility] HospitalIn the event this information is protected by the Federal Confidentiality of Alcohol and Drug Abuse Patient Records regulations: The Federal rules restrict any use of the information to criminally investigate or prosecute any alcohol or drug abuse patient.[facility] HospitalIn the event this information is protected by the Federal Confidentiality of Alcohol and Drug Abuse Patient Records regulations: The Federal rules restrict any use of the information to criminally investigate or prosecute any alcohol or drug abuse patient.[facility] HospitalIn the event this information is protected by the Federal Confidentiality of Alcohol and Drug Abuse Patient Records regulations: The Federal rules restrict any use of the information to criminally investigate or prosecute any alcohol or drug abuse patient.[facility] HospitalIn the event this information is protected by the Federal Confidentiality of Alcohol and Drug Abuse Patient Records regulations: The Federal rules restrict any use of the information to criminally investigate or prosecute any alcohol or drug abuse patient.[facility] HospitalIn the event this information is protected by the Federal Confidentiality of Alcohol and Drug Abuse Patient Records regulations: The Federal rules restrict any use of the information to criminally investigate or prosecute any alcohol or drug abuse patient.[facility] HospitalIn the event this information is protected by the Federal Confidentiality of Alcohol and Drug Abuse Patient Records regulations: The Federal rules restrict any use of the information to criminally investigate or prosecute any alcohol or drug abuse patient.[facility] HospitalIn the event this information is protected by the Federal Confidentiality of Alcohol and Drug Abuse Patient Records regulations: The Federal rules restrict any use of the information to criminally investigate or prosecute any alcohol or drug abuse patient.[facility] HospitalIn the event this information is protected by the Federal Confidentiality of Alcohol and Drug Abuse Patient Records regulations: The Federal rules restrict any use of the information to criminally investigate or prosecute any alcohol or drug abuse patient.[facility] HospitalIn the event this information is protected by the Federal Confidentiality of Alcohol and Drug Abuse Patient Records regulations: The Federal rules restrict any use of the information to criminally investigate or prosecute any alcohol or drug abuse patient.[facility] HospitalIn the event this information is protected by the Federal Confidentiality of Alcohol and Drug Abuse Patient Records regulations: The Federal rules restrict any use of the information to criminally investigate or prosecute any alcohol or drug abuse patient.[facility] HospitalIn the event this information is protected by the Federal Confidentiality of Alcohol and Drug Abuse Patient Records regulations: The Federal rules restrict any use of the information to criminally investigate or prosecute any alcohol or drug abuse patient.[facility] HospitalIn the event this information is protected by the Federal Confidentiality of Alcohol and Drug Abuse Patient Records regulations: The Federal rules restrict any use of the information to criminally investigate or prosecute any alcohol or drug abuse patient.[facility] HospitalIn the event this information is protected by the Federal Confidentiality of Alcohol and Drug Abuse Patient Records regulations: The Federal rules restrict any use of the information to criminally investigate or prosecute any alcohol or drug abuse patient.[facility] HospitalIn the event this information is protected by the Federal Confidentiality of Alcohol and Drug Abuse Patient Records regulations: The Federal rules restrict any use of the information to criminally investigate or prosecute any alcohol or drug abuse patient.[facility] HospitalIn the event this information is protected by the Federal Confidentiality of Alcohol and Drug Abuse Patient Records regulations: The Federal rules restrict any use of the information to criminally investigate or prosecute any alcohol or drug abuse patient.[facility] HospitalIn the event this information is protected by the Federal Confidentiality of Alcohol and Drug Abuse Patient Records regulations: The Federal rules restrict any use of the information to criminally investigate or prosecute any alcohol or drug abuse patient.[facility] HospitalIn the event this information is protected by the Federal Confidentiality of Alcohol and Drug Abuse Patient Records regulations: The Federal rules restrict any use of the information to criminally investigate or prosecute any alcohol or drug abuse patient.[facility] HospitalIn the event this information is protected by the Federal Confidentiality of Alcohol and Drug Abuse Patient Records regulations: The Federal rules restrict any use of the information to criminally investigate or prosecute any alcohol or drug abuse patient.[facility] HospitalIn the event this information is protected by the Federal Confidentiality of Alcohol and Drug Abuse Patient Records regulations: The Federal rules restrict any use of the information to criminally investigate or prosecute any alcohol or drug abuse patient.[facility] HospitalIn the event this information is protected by the Federal Confidentiality of Alcohol and Drug Abuse Patient Records regulations: The Federal rules restrict any use of the information to criminally investigate or prosecute any alcohol or drug abuse patient.[facility] HospitalIn the event this information is protected by the Federal Confidentiality of Alcohol and Drug Abuse Patient Records regulations: The Federal rules restrict any use of the information to criminally investigate or prosecute any alcohol or drug abuse patient.[facility] HospitalIn the event this information is protected by the Federal Confidentiality of Alcohol and Drug Abuse Patient Records regulations: The Federal rules restrict any use of the information to criminally investigate or prosecute any alcohol or drug abuse patient.[facility] HospitalIn the event this information is protected by the Federal Confidentiality of Alcohol and Drug Abuse Patient Records regulations: The Federal rules restrict any use of the information to criminally investigate or prosecute any alcohol or drug abuse patient.[facility] HospitalIn the event this information is protected by the Federal Confidentiality of Alcohol and Drug Abuse Patient Records regulations: The Federal rules restrict any use of the information to criminally investigate or prosecute any alcohol or drug abuse patient.[facility] HospitalIn the event this information is protected by the Federal Confidentiality of Alcohol and Drug Abuse Patient Records regulations: The Federal rules restrict any use of the information to criminally investigate or prosecute any alcohol or drug abuse patient.[facility] HospitalIn the event this information is protected by the Federal Confidentiality of Alcohol and Drug Abuse Patient Records regulations: The Federal rules restrict any use of the information to criminally investigate or prosecute any alcohol or drug abuse patient.[facility] HospitalIn the event this information is protected by the Federal Confidentiality of Alcohol and Drug Abuse Patient Records regulations: The Federal rules restrict any use of the information to criminally investigate or prosecute any alcohol or drug abuse patient.[facility] HospitalIn the event this information is protected by the Federal Confidentiality of Alcohol and Drug Abuse Patient Records regulations: The Federal rules restrict any use of the information to criminally investigate or prosecute any alcohol or drug abuse patient.[facility] HospitalIn the event this information is protected by the Federal Confidentiality of Alcohol and Drug Abuse Patient Records regulations: The Federal rules restrict any use of the information to criminally investigate or prosecute any alcohol or drug abuse patient.[facility] HospitalIn the event this information is protected by the Federal Confidentiality of Alcohol and Drug Abuse Patient Records regulations: The Federal rules restrict any use of the information to criminally investigate or prosecute any alcohol or drug abuse patient.[facility] HospitalIn the event this information is protected by the Federal Confidentiality of Alcohol and Drug Abuse Patient Records regulations: The Federal rules restrict any use of the information to criminally investigate or prosecute any alcohol or drug abuse patient.[facility] HospitalIn the event this information is protected by the Federal Confidentiality of Alcohol and Drug Abuse Patient Records regulations: The Federal rules restrict any use of the information to criminally investigate or prosecute any alcohol or drug abuse patient.[facility] HospitalIn the event this information is protected by the Federal Confidentiality of Alcohol and Drug Abuse Patient Records regulations: The Federal rules restrict any use of the information to criminally investigate or prosecute any alcohol or drug abuse patient.[facility] HospitalIn the event this information is protected by the Federal Confidentiality of Alcohol and Drug Abuse Patient Records regulations: The Federal rules restrict any use of the information to criminally investigate or prosecute any alcohol or drug abuse patient.[facility] HospitalIn the event this information is protected by the Federal Confidentiality of Alcohol and Drug Abuse Patient Records regulations: The Federal rules restrict any use of the information to criminally investigate or prosecute any alcohol or drug abuse patient.[facility] HospitalIn the event this information is protected by the Federal Confidentiality of Alcohol and Drug Abuse Patient Records regulations: The Federal rules restrict any use of the information to criminally investigate or prosecute any alcohol or drug abuse patient.[facility] HospitalIn the event this information is protected by the Federal Confidentiality of Alcohol and Drug Abuse Patient Records regulations: The Federal rules restrict any use of the information to criminally investigate or prosecute any alcohol or drug abuse patient.[facility] Reason for Visit (unrecogniz ed section and content) Specialty Diagnoses / Procedures Referred By Contac t Referred To Contact [facility] Diagnoses Monochorionic diamniotic twin in second trimester 23 weeks gestation of History of delivery, currently Supervision of other high risk pregnancies, second trimester Procedures OBSTETRIC ULTRASOUND WHI US PREG UTERUS AFTER 1ST TRIMEST GESTATION Chapincito Zavala MD [address] [place] [address] [facility] [address] [place] [address] Referral ID Status Reason Start Date Expiration Date V isits Requested Visits Authorized [id number] Closed Auto-Generate d Referral 10/14/2022 10/14/2023 12 1 Specialty Diagnoses / Procedures Referred By Contac t Referred To Contact Diagnoses Threatened labor, third trimester Procedures NA Id [id number] [place] [address] Referral ID Status Reason Start Date Expiration Date Visits Re quested Visits Authorized [id number] 1 1 Specialty Diagnoses / Procedures Referred By Contac t Referred To Contact [facility] Diagnoses Encounter for follow-up ultrasound of anatomy Procedures OBSTETRIC ULTRASOUND WHI US PREG UTERUS AFTER 1ST TRIMEST GESTATION Yuliana Carlos MD [address] [place] [address] [address] Referral ID Status Reason Start Date Expiration Date V isits Requested Visits Authorized [id number] Closed Auto-Generate d Referral 08/18/2021 08/18/2022 1 1 Reason Onset Date Comments Care 08/21/2021 Specialty Diagnoses / Procedures Referred By Contac t Referred To Contact [employer] Diagnoses OB appointment Procedures ob apppointment and ultrasound Yuliana Carlos MD [address] [place] [address] [employer] [address] [place] [address] Referral ID Status Reason Start Date Expiration Date V isits Requested Visits Authorized [id number] Closed Patient Cleared - Qualified 100% FAS 07/24/2021 10/22/2021 99 99 Reason Onset Date Comments Care 07/24/2021 Referral ID Status Reason Start Date Expiration Date Visits Requested Visits Authorized [id number] Authorized Patient Cleared - Qualified 100% FAS 07/24/2021 10/22/2021 99 99 Reason Onset Date Comments Care 06/05/2021 Specialty Diagnoses / Procedures Referred By Contac t Referred To Contact [facility] Diagnoses Supervision of other normal , antepartum Procedures NUCHAL TRANSLUCENCY WHI US NUCHAL TRANSLUCENCY 1ST GESTATION Kimani Núñez MD [address] [place] [address] [address] Referral ID Status Reason Start Date Expiration Date V isits Requested Visits Authorized [id number] Closed Auto-Generate d Referral 05/01/2021 05/01/2022 1 1 Reason Comments OB Fainting Episode Reason Onset Date Comments Care 07/03/2021 Reason Comments Orders Reason Onset Date Comments Care 09/18/2021 Reason Comments Question (OB Question) Reason Onset Date Comments Care 10/02/2021 Specialty Diagnoses / Procedures Referred By Contac t Referred To Contact [facility] Diagnoses 29 weeks gestation of Procedures OBSTETRIC ULTRASOUND WHI US PREG UTERUS AFTER 1ST TRIMEST GESTATION Pam Yarbrough APRN.CNM [address] [place] [address] [address] Referral ID Status Reason Start Date Expiration Date V isits Requested Visits Authorized [id number] Closed Auto-Generate d Referral 10/02/2021 10/02/2022 1 1 Reason Onset Date Comments Care 10/16/2021 Specialty Diagnoses / Procedures Referred By Contac t Referred To Contact [facility] Diagnoses 31 weeks gestation of Poor growth affecting management of mother in first trimester, single or unspecified fetus Procedures OBSTETRIC ULTRASOUND WHI US PREG UTERUS AFTER 1ST TRIMEST GESTATION Kimani Núñez MD [address] [place] [address] [address] Referral ID Status Reason Start Date Expiration Date V isits Requested Visits Authorized [id number] Closed Auto-Generate d Referral 10/16/2021 10/16/2022 1 1 Reason Onset Date Comments Care 10/30/2021 Specialty Diagnoses / Procedures Referred By Contac t Referred To Contact [facility] Diagnoses Uterine size-date discrepancy, third trimester Procedures OBSTETRIC ULTRASOUND WHI US PREG UTERUS AFTER 1ST TRIMEST GESTATION Yuliana Carlos MD [address] [facility] [place] [place] [address] [address] Referral ID Status Reason Start Date Expiration Date V isits Requested Visits Authorized [id number] Closed Auto-Generate d Referral 09/18/2021 09/18/2022 1 1 Reason Comments OB-Headache Reason Onset Date Comments Care 11/13/2021 Specialty Diagnoses / Procedures Referred By Contac t Referred To Contact [facility] Diagnoses Poor growth affecting management of mother in third trimester, single or unspecified fetus Procedures BIOPHYSICAL PROFILE US WHI BIOPHYSICAL PROFILE NON-STRESS TESTING Pam Yarbrough APRN.CNM [address] [place] [address] [address] Referral ID Status Reason Start Date Expiration Date V isits Requested Visits Authorized [id number] Closed Auto-Generate d Referral 11/05/2021 11/05/2022 5 1 Reason Comments Results Reason Comments Ob Delivery Note Reason Comments Routine Reason Comments Medication Follow-up Adderall causing he adaches Reason Onset Date Comments Refill Request 05/11/2022 Reason Comments Dental Problem Pt reported lower (R T) tooth pain, x3 days. Reason Comments Sinus Problem sinus pressure, drai nage x 2 weeks Reason Onset Date Comments Vomiting in Early 06/29/2022 Reason Comments OB N/V Reason Onset Date Comments Care 08/04/2022 Reason Onset Date Comments Care 08/27/2022 Specialty Diagnoses / Procedures Referred By Contac t Referred To Contact [facility] Diagnoses 13 weeks gestation of Monochorionic diamniotic twin , antepartum Procedures OBSTETRIC ULTRASOUND WHI US PREG UTERUS AFTER 1ST TRIMEST GESTATION Kimani Núñez MD [address] [place] [address] [address] Referral ID Status Reason Start Date Expiration Date V isits Requested Visits Authorized [id number] Closed Auto-Generate d Referral 08/04/2022 08/04/2023 1 1 Reason Comments Trauma Pt reported 17.6 wee k twin gestation scabies exposure. Specialty Diagnoses / Procedures Referred By Contac t Referred To Contact [facility] Diagnoses Monochorionic diamniotic twin , antepartum Procedures OBSTETRIC ULTRASOUND WHI US PREG UTERUS AFTER 1ST TRIMEST GESTATION Kimani Núñez MD [address] [place] [address] [address] Referral ID Status Reason Start Date Expiration Date V isits Requested Visits Authorized [id number] Closed Auto-Generate d Referral 08/27/2022 08/27/2023 10 1 Reason Onset Date Comments Care 10/14/2022 Reason Comments Orders Reason Onset Date Comments Care 10/29/2022 Reason Comments Blood management Reason Comments Hematology Reason Comments IV Iron Infusions Reason Onset Date Comments Care 11/12/2022 Reason Comments Benefits Investigation Reason Onset Date Comments Care 11/26/2022 Reason Onset Date Comments Care 12/10/2022 Reason Onset Date Comments Care 12/23/2022 Care Teams (unrecognized sec tion and content) Car Storer Relationship Specialty Start Date End Date BoydMeir, PATTERN CLEANER.GEOSPATIAL EXTRACTOR ANALYSIS [address] [place] [address] PCP - General Family Practice 04/26/19 Car Storer Relationship Specialty Start Date End Date BoydMeir, PATTERN CLEANER.GEOSPATIAL EXTRACTOR ANALYSIS [address] [place] [address] PCP - General Family Practice 04/26/19 Car Storer Relationship Specialty Start Date End Date BoydMeir, PATTERN CLEANER.GEOSPATIAL EXTRACTOR ANALYSIS [address] [place] [address] PCP - General Family Practice 04/26/19 Car Storer Relationship Specialty Start Date End Date BoydMeir, PATTERN CLEANER.GEOSPATIAL EXTRACTOR ANALYSIS [address] [place] [address] PCP - General Family Practice 04/26/19 Car Storer Relationship Specialty Start Date End Date BoydMeir, PATTERN CLEANER.GEOSPATIAL EXTRACTOR ANALYSIS [address] [place] [address] PCP - General Family Practice 04/26/19 Car Storer Relationship Specialty Start Date End Date BoydMeir, PATTERN CLEANER.GEOSPATIAL EXTRACTOR ANALYSIS [address] [place] [address] PCP - General Family Practice 04/26/19 Car Storer Relationship Specialty Start Date End Date BoydMeir, PATTERN CLEANER.GEOSPATIAL EXTRACTOR ANALYSIS [address] [place] [address] PCP - General Family Practice 04/26/19 Car Storer Relationship Specialty Start Date End Date BoydMeir, PATTERN CLEANER.GEOSPATIAL EXTRACTOR ANALYSIS [address] [place] [address] PCP - General Family Practice 04/26/19 Car Storer Relationship Specialty Start Date End Date BoydMeir, PATTERN CLEANER.GEOSPATIAL EXTRACTOR ANALYSIS [address] [place] [address] PCP - General Family Practice 04/26/19 Car Storer Relationship Specialty Start Date End Date BoydMeir, PATTERN CLEANER.GEOSPATIAL EXTRACTOR ANALYSIS [address] [place] [address] PCP - General Family Practice 04/26/19 Car Storer Relationship Specialty Start Date End Date BoydMeir, PATTERN CLEANER.GEOSPATIAL EXTRACTOR ANALYSIS [address] [place] [address] PCP - General Family Practice 04/26/19 Car Storer Relationship Specialty Start Date End Date BoydMeir, PATTERN CLEANER.GEOSPATIAL EXTRACTOR ANALYSIS [address] [place] [address] PCP - General Family Practice 04/26/19 Car Storer Relationship Specialty Start Date End Date BoydMeir, PATTERN CLEANER.GEOSPATIAL EXTRACTOR ANALYSIS [address] [place] [address] PCP - General Family Practice 04/26/19 Car Storer Relationship Specialty Start Date End Date BoydMeir, PATTERN CLEANER.GEOSPATIAL EXTRACTOR ANALYSIS [address] [place] [address] PCP - General Family Medicine 04/26/19 Car Storer Relationship Specialty Start Date End Date BoydMeir, PATTERN CLEANER.GEOSPATIAL EXTRACTOR ANALYSIS [address] [place] [address] PCP - General Family Medicine 04/26/19 Car Storer Relationship Specialty Start Date End Date BoydMeir, PATTERN CLEANER.GEOSPATIAL EXTRACTOR ANALYSIS [address] [place] [address] PCP - General Family Medicine 04/26/19 Car Storer Relationship Specialty Start Date End Date BoydMeir, PATTERN CLEANER.GEOSPATIAL EXTRACTOR ANALYSIS [address] [place] [address] PCP - General Family Medicine 04/26/19 Car Storer Relationship Specialty Start Date End Date BoydMeir, PATTERN CLEANER.GEOSPATIAL EXTRACTOR ANALYSIS [address] [place] [address] PCP - General Family Medicine 04/26/19 Car Storer Relationship Specialty Start Date End Date BoydMeir, PATTERN CLEANER.GEOSPATIAL EXTRACTOR ANALYSIS [address] [place] [address] PCP - General Family Medicine 04/26/19 Car Storer Relationship Specialty Start Date End Date BoydMeir, PATTERN CLEANER.GEOSPATIAL EXTRACTOR ANALYSIS [address] [place] [address] PCP - General Family Medicine 04/26/19 Car Storer Relationship Specialty Start Date End Date BoydMeir, PATTERN CLEANER.GEOSPATIAL EXTRACTOR ANALYSIS [address] [place] [address] PCP - General Family Medicine 04/26/19 Car Storer Relationship Specialty Start Date End Date BoydMeir, PATTERN CLEANER.GEOSPATIAL EXTRACTOR ANALYSIS [address] [place] [address] PCP - General Family Medicine 04/26/19 Car Storer Relationship Specialty Start Date End Date BoydMeir, PATTERN CLEANER.GEOSPATIAL EXTRACTOR ANALYSIS [address] [place] [address] PCP - General Family Medicine 04/26/19 Car Storer Relationship Specialty Start Date End Date , Meir, PATTERN CLEANER.GEOSPATIAL EXTRACTOR ANALYSIS [address] [place] [address] PCP - General Family Medicine 04/26/19 Car Storer Relationship Specialty Start Date End Date Boyd, Meir, PATTERN CLEANER.GEOSPATIAL EXTRACTOR ANALYSIS [address] [place] [address] PCP - General Family Medicine 04/26/19 Car Storer Relationship Specialty Start Date End Date Boyd, Meir, PATTERN CLEANER.GEOSPATIAL EXTRACTOR ANALYSIS [address] [place] [address] PCP - General Family Medicine 04/26/19 Car Storer Relationship Specialty Start Date End Date , Meir, PATTERN CLEANER.GEOSPATIAL EXTRACTOR ANALYSIS [address] [place] [address] PCP - General Family Medicine 04/26/19 Car Storer Relationship Specialty Start Date End Date , Meir, PATTERN CLEANER.GEOSPATIAL EXTRACTOR ANALYSIS [address] [place] [address] PCP - General Family Medicine 04/26/19 Car Storer Relationship Specialty Start Date End Date , Meir, PATTERN CLEANER.GEOSPATIAL EXTRACTOR ANALYSIS [address] [place] [address] PCP - General Family Medicine 04/26/19 Car Storer Relationship Specialty Start Date End Date , Meir, PATTERN CLEANER.GEOSPATIAL EXTRACTOR ANALYSIS [address] [place] [address] PCP - General Family Medicine 04/26/19 Car Storer Relationship Specialty Start Date End Date Boyd, Meir, PATTERN CLEANER.GEOSPATIAL EXTRACTOR ANALYSIS [address] [place] [address] PCP - General Family Medicine 04/26/19 Car Storer Relationship Specialty Start Date End Date [facility], PATTERN CLEANER.GEOSPATIAL EXTRACTOR ANALYSIS [address] [place] [address] PCP - General Family Medicine 04/26/19 Car Storer Relationship Specialty Start Date End Date [facility], PATTERN CLEANER.GEOSPATIAL EXTRACTOR ANALYSIS [address] [place] [address] PCP - General Family Medicine 04/26/19 Car Storer Relationship Specialty Start Date End Date [facility], PATTERN CLEANER.GEOSPATIAL EXTRACTOR ANALYSIS [address] [place] [address] PCP - General Family Medicine 04/26/19 Car Storer Relationship Specialty Start Date End Date [facility], PATTERN CLEANER.GEOSPATIAL EXTRACTOR ANALYSIS [address] [place] [address] PCP - General Family Medicine 04/26/19 Car Storer Relationship Specialty Start Date End Date [facility], PATTERN CLEANER.GEOSPATIAL EXTRACTOR ANALYSIS [address] [place] [address] PCP - General Family Medicine 04/26/19 Car Storer Relationship Specialty Start Date End Date [facility], PATTERN CLEANER.GEOSPATIAL EXTRACTOR ANALYSIS [address] [place] [address] PCP - General Family Medicine 04/26/19 Car Storer Relationship Specialty Start Date End Date [facility], PATTERN CLEANER.GEOSPATIAL EXTRACTOR ANALYSIS [address] [place] [address] PCP - General Family Medicine 04/26/19 Car Storer Relationship Specialty Start Date End Date , Meir, PATTERN CLEANER.GEOSPATIAL EXTRACTOR ANALYSIS [address] [place] [address] PCP - General Family Medicine 04/26/19 Car Storer Relationship Specialty Start Date End Date , PATTERN CLEANER.GEOSPATIAL EXTRACTOR ANALYSIS [address] [place] [address] PCP - General Family Medicine 04/26/19 Car Storer Relationship Specialty Start Date End Date Boyd, Meir, PATTERN CLEANER.GEOSPATIAL EXTRACTOR ANALYSIS [address] [place] [address] PCP - General Family Medicine 04/26/19 Car Storer Relationship Specialty Start Date End Date , PATTERN CLEANER.GEOSPATIAL EXTRACTOR ANALYSIS [address] [place] [address] PCP - General Family Medicine 04/26/19 Car Storer Relationship Specialty Start Date End Date , PATTERN CLEANER.GEOSPATIAL EXTRACTOR ANALYSIS [address] [place] [address] PCP - General Family Medicine 04/26/19 Car Storer Relationship Specialty Start Date End Date , PATTERN CLEANER.GEOSPATIAL EXTRACTOR ANALYSIS [address] [place] [address] PCP - General Family Medicine 04/26/19 Car Storer Relationship Specialty Start Date End Date , Meir, PATTERN CLEANER.GEOSPATIAL EXTRACTOR ANALYSIS [address] [place] [address] PCP - General Family Medicine 04/26/19 Car Storer Relationship Specialty Start Date End Date , Meir, PATTERN CLEANER.GEOSPATIAL EXTRACTOR ANALYSIS [address] [place] [address] PCP - General Family Medicine 04/26/19 Car Storer Relationship Specialty Start Date End Date Boyd Meir, PATTERN CLEANER.GEOSPATIAL EXTRACTOR ANALYSIS [address] [facility], [place] [address] PCP - General Family Medicine 04/26/19 Car Storer Relationship Specialty Start Date End Date BoydMeir, PATTERN CLEANER.GEOSPATIAL EXTRACTOR ANALYSIS [address] [facility], [place] [id number] PCP - General Family Medicine 04/26/19 FOR RECORDS PERTAINING TO PATIENTS WHO ARE OR HAVE BEEN ENROLLED IN A CHEMICAL DEPENDENCY/SUBSTANCEABUSE PROGRAM, SOME INFORMATION MAY BE OMITTED. This clinical summary was aggregated from multiple sources. Caution should be exercised in using it in the provision of clinical care. This summary normalizes information from multiple sources, and as a consequence, information in this document may materially change the coding, format and clinical context of patient data. In addition, data may be omitted in some cases. CLINICAL DECISIONS SHOULD BE BASED ON THE PRIMARY CLINICAL RECORDS. [employer] [facility]. provides no warranty or guarantee of the accuracy or completeness of information in this document.
[2023-02-28] MEDS: Azithromycin 250 MG Tablet 500 MG PO (14:50)
== END 2023-02-28 14:51 | disposition home or self-care (01) ==
LOC: ED 14:14
PROVIDERS: Emergency Provider Emergency Medicine; PCP Nurse Practitioner Family; Visit Provider Emergency Medicine
DX: J02.0 Streptococcal pharyngitis (principal); R51.9 Headache, unspecified; Z88.0 Allergy status to penicillin
CPT/HCPCS: 87651; 99282

== ENCOUNTER 2023-03-25 22:26 | Emergency (ER) | payer MEDICAID, SELFPAY ==
[2023-03-25 22:26] VITALS: BP 106/68; PULSE 133; RESP 18; TEMP 39.3; O2SAT 97; BMI 19.5
--- OUTSIDE RECORDS SUMMARY | 2023-03-25 22:47 | XMS RPT_ITS | CCD ---
Author Name Unknown Address [address] [place] [address] Organization [facility] Care Team Providers Care Wheel Grinder Name Role Phone Brian Wilson W Unavailable Unavailable GarlandBrian W Unavailable Unavailable Gracie Panchal Unavailable Unavailable HANDWORK, DESTINI K Unavailable Unavailable PATILLA, HERMAN Unavailable Unavailable PATILLA, HERMAN Unavailable Unavailable PATILLA, HERMAN Unavailable Unavailable CUETOKAVON Unavailable Unavailable SAMUELS, HARJEET Unavailable Unavailable PATILLA, HERMAN Unavailable Unavailable PATILLA, HERMAN Unavailable Unavailable SAMUELS, HARJEET Unavailable Unavailable PATILLA, HERMAN Unavailable Unavailable PATILLA, HERAMN Unavailable Unavailable PATILLA, HERMAN Unavailable Unavailable PATILLA, [...] Unavailable Unavailable RADHA HAGER Unavailable Unavailable Boyd RESTAURANT COOK.Meir AKERS Primary Care Provider Unavailable Primary Care Provider Unavailabl e PROVIDER, UNKNOWN Attending Unavailable PROVIDER, UNKNOWN Admitting Unavailable PATIENT, SELF Referring Unavailable Boyd RESTAURANT COOK.Meir AKERS Primary Care Provider Boyd BOUDREAUXN.DELPHINE, Meir Primary Care Provider Boyd RESTAURANT COOK.HEAT TREAT INSPECTOR, Meir Primary Care Provider [facility] RESTAURANT COOK.HEAT TREAT INSPECTOR, [facility] Primary Care Provider RAMONA DO-FACOGYESSI Attending Unavail [...] Care Unavailable LUCAS CHAPINCITO L Referring Unavailable KMIANI NÚÑEZ Attending Unavailable BOYD, MEIR Primary Care [...] Attending Unavailable JESSICA BARON Admitting Unavailable JESSICA BARON Attending Unavailable BOYD, MEIR Primary Care Unavailable BOYD, MEIR Primary Care Unavailable KESSLERMARLOE Referring Unavailable BOYD, MEIR Primary Care Unavailable BOYD, MEIR Primary Care Unavailable MALIK CHERRY Attending Unavailable KESSLER, LAURI Referring Unavailable BOYD, MEIR Primary Care Unavailable MALIK CHERRY Attending Unavailable NAGI LAURI Referring Unavailable OPAL MALDONADO Admitting Unavailable OPAL MALDONADO Attending Unavailable BOYD, MEIR Primary Care Unavailable IHRA YU Admitting Unavailable BOYD, MEIR Primary Care Unavailable DESIREE MAYO Attending Unavailable BOYD, MEIR Primary Care Unavailable SOZEN, COLUNGA Admitting Unavailable SOZEN, COLUNGA Attending Unavailable ABIGAIL PARKER Attending Unavailab BOYDENEDINAMEIR Primary Care Unavailable HIRA YU Admitting Unavailable HIRA YU Admitting Unavailable HIRA YU Attending [facility]available [facility] Care Unavailable Allergies Allergy Classification Reported Allergen(s) Allergy Type Date of Onset Reaction(s) Facility (20 sources) Penicillins; Translations: [penicillins] Propensity to adverse reactions to drug (disorder) [address] [facility] Repository (20 sources) Sertraline; Translations: [SERTRALINE] Drug Allergy 0 Intolerance, Upset Stomach [facility] Work Phone: (2 sources) Amoxicillin; Translations: [AMOXICILLIN] Drug Allergy 2 [facility] Medications Current Medications Medication Drug Class(es) Dates [...] (Normalized) Sig (Original) 1.1 ml HYDROXYprogesterone caproate (fpc) 250 mg/ml auto-injector (20 sources) Start: 06-22-2021 End: 05-28-2022 inject 1.1 mL by subcutaneous injection every week HYDROXYprogest,PF,, preg presv, (YURI, PF,) 275 mg/1.1 mL auto-injector [...] kg Ana Maria Sanchez MD Work Phone: [facility] 12-23-2022 11:21-040 Diastolic blood pressure 77 mm[Hg] Ana Maria Sanchez MD Work Phone: [facility] 12-23-2022 11:21-0400 Systolic blood pressure 113 mm[Hg] Ana Maria Sanhcez MD Work Phone: [facility] 12-18-2022 08:54-0400 Diastolic blood pressure 61 mm[Hg] Tushar Seo MD Work Phone: [facility] 12-18-2022 08:54-0400 Heart rate 76 /min Tushar Seo MD Work Phone: [facility] 12-18-2022 08:54-0400 Systolic blood pressure 95 mm[Hg] Tushar Seo MD Work Phone: [facility] 12-17-2022 10:29-0400 Body weight 57.15 kg Ev Chang MD Work Phone: [facility] 12-17-2022 10:29-0400 Diastolic blood pressure 72 mm[Hg] Ev Chang MD Work Phone: [facility] 12-17-2022 10:29-0400 Heart rate 88 /min Ev Chang MD Work Phone: [facility] 12-17-2022 10:29-0400 Systolic blood pressure 104 mm[Hg] Ev Chang MD Work Phone: [facility] 12-10-2022 08:38-0400 Body weight 57.34 kg Kimani Núñez MD Work Phone: [facility] 12-10-2022 08:38-0400 Diastolic blood pressure 62 mm[Hg] Kimani Núñez MD Work Phone: [facility] 12-10-2022 08:38-0400 Systolic blood pressure 92 mm[Hg] Kimani Núñez MD Work Phone: [facility] 12-10-2022 08:00-0400 Body height 160 cm Ob Ultrasound Work Phone: [facility] 12-10-2022 08:00-0400 Body weight 57.61 kg Ob Ultrasound Work Phone: [facility] 11-26-2022 09:16-0400 Body weight 56.16 kg Pam Yarbrough RESTAURANT COOK.CNM Work Phone: [facility] 11-26-2022 09:16-0400 Diastolic blood pressure 54 mm[Hg] Pam Yarbrough RESTAURANT COOK.CNM Work Phone: [facility] 11-26-2022 09:16-0400 Systolic blood pressure 90 mm[Hg] Pam Yarbrough RESTAURANT COOK.CNM Work Phone: [facility] 11-12-2022 10:35-0400 Body weight 53.52 kg Chapincito Zavala MD Work Phone: [facility] 11-12-2022 10:35-0400 Diastolic blood pressure 54 mm[Hg] Chapicnito Zavala MD Work Phone: [facility] 11-12-2022 10:35-0400 Systolic blood pressure 92 mm[Hg] Chapincito Zavala MD Work Phone: [facility] 10-29-2022 11:52-0400 Body weight 53.8 kg Yuliana Carlos MD Work Phone: [facility] 10-29-2022 11:52-0400 Diastolic blood pressure 70 mm[Hg] Yuliana Carlos MD Work Phone: [facility] 10-29-2022 11:52-0400 Systolic blood pressure 110 mm[Hg] Yuliana Carlos MD Work Phone: [facility] 10-14-2022 14:00-0400 Body weight 51.26 kg Chapincito Zavala MD Work Phone: [facility] 10-14-2022 14:00-0400 Diastolic blood pressure 56 mm[Hg] Chapincito Zavala MD Work Phone: [facility] 10-14-2022 14:00-0400 Systolic blood pressure 98 mm[Hg] Chapincito Zavala MD Work Phone: [facility] 09-24-2022 08:49-0400 Body height 160 cm Ob Ultrasound Work Phone: [facility] 09-24-2022 08:49-0400 Body weight 49.9 kg Ob Ultrasound Work Phone: [facility] 09-10-2022 10:01-0400 Body weight 48.53 kg Ob Ultrasound Work Phone: [facility] 09-04-2022 12:07-0400 Body temperature 98.29 [degF] Usman Ang MD Work Phone: [facility] 09-04-2022 12:07-0400 Body weight 47.17 kg Usman Ang MD Work Phone: [facility] 09-04-2022 12:07-0400 Diastolic blood pressure 66 mm[Hg] Usman Ang MD Work Phone: [facility] 09-04-2022 12:07-0400 Heart rate 118 /min Usman Ang MD Work Phone: [facility] 09-04-2022 12:07-0400 Respiratory rate 18 /min Usman Ang MD Work Phone: [facility] 09-04-2022 12:07-0400 SaO2% (BldA) [Mass fraction] 97 % Usman Ang MD Work Phone: [facility] 09-04-2022 12:07-0400 Systolic blood pressure 110 mm[Hg] Usman Ang MD Work Phone: [facility] 08-27-2022 09:13-0400 Diastolic blood pressure 60 mm[Hg] Kimani Núñez MD Work Phone: [facility] 08-27-2022 09:13-0400 Systolic blood pressure 100 mm[Hg] Kimani Núñez MD Work Phone: [facility] 08-27-2022 09:02-0400 Body height 160 cm Ob Ultrasound Work Phone: [facility] 08-27-2022 09:02-0400 Body weight 46.72 kg Ob Ultrasound Work Phone: [facility] 08-04-2022 15:05-0400 Body weight 44 kg Kimani Núñez MD Work Phone: [facility] 08-04-2022 15:05-0400 Diastolic blood pressure 58 mm[Hg] Kimani Núñez MD Work Phone: [facility] 08-04-2022 15:05-0400 Systolic blood pressure 96 mm[Hg] Kimani Núñez MD Work Phone: [facility] 06-02-2022 12:21-0400 Body temperature 97.9 [degF] Mat Fredrick RESTAURANT COOK.HEAT TREAT INSPECTOR Work Phone: [facility] 06-02-2022 12:210400 Body weight 46.18 kg Mat Fredrick RESTAURANT COOK.HEAT TREAT INSPECTOR Work Phone: [facility] 06-02-2022 12:21-0400 Diastolic blood pressure 60 mm[Hg] Mat Fredrick RESTAURANT COOK.HEAT TREAT INSPECTOR Work Phone: [facility] 06-02-2022 12:21-0400 Heart rate 94 /min Mat Fredrick RESTAURANT COOK.HEAT TREAT INSPECTOR Work Phone: [facility] 06-02-2022 12:21-0400 Respiratory rate 16 /min Mat Fredrick RESTAURANT COOK.HEAT TREAT INSPECTOR Work Phone: [facility] 06-02-2022 12:21-0400 SaO2% (BldA) [Mass fraction] 98 % Mat Fredrick RESTAURANT COOK.HEAT TREAT INSPECTOR Work Phone: [facility] 06-02-2022 12:21-0400 Systolic blood pressure 96 mm[Hg] Mat Fredrick RESTAURANT COOK.HEAT TREAT INSPECTOR Work Phone: [facility] 05-28-2022 13:56-0400 Body temperature 98.8 [degF] Usman Ang MD Work Phone: [facility] 05-28-2022 13:56-0400 Body weight 45.99 kg Usman Ang MD Work Phone: [facility] 05-28-2022 13:56-0400 Diastolic blood pressure 64 mm[Hg] Usman Ang MD Work Phone: [facility] 05-28-2022 13:56-0400 Heart rate 71 /min Usman Ang MD Work Phone: [facility] 05-28-2022 13:56-0400 Respiratory rate 16 /min Usman Ang MD Work Phone: [facility] 05-28-2022 13:56-0400 SaO2% (BldA) [Mass fraction] 100 % Usman Ang MD Work Phone: [facility] 05-28-2022 13:56-0400 Systolic blood pressure 110 mm[Hg] Usman Ang MD Work Phone: [facility] 02-26-2022 14:06-0500 Body weight 47.17 kg Meir Boyd RESTAURANT COOK.HEAT TREAT INSPECTOR Work Phone: [facility] 02-26-2022 14:06-0500 Diastolic blood pressure 60 mm[Hg] Meir Boyd RESTAURANT COOK.HEAT TREAT INSPECTOR Work Phone: [facility] 02-26-2022 14:06-0500 Heart rate 78 /min Meir Boyd RESTAURANT COOK.HEAT TREAT INSPECTOR Work Phone: [facility] 02-26-2022 14:06-0500 Respiratory rate 16 /min Meir Boyd RESTAURANT COOK.HEAT TREAT INSPECTOR Work Phone: [facility] 02-26-2022 14:06-0500 SaO2% (BldA) [Mass fraction] 96 % Meir Boyd RESTAURANT COOK.HEAT TREAT INSPECTOR Work Phone: [facility] 02-26-2022 14:06-0500 Systolic blood pressure 98 mm[Hg] Meir Boyd RESTAURANT COOK.HEAT TREAT INSPECTOR Work Phone: [facility] 12-24-2021 09:11-0400 Body weight 50.89 kg Pma Figueroats RESTAURANT COOK.CNM Work Phone: [facility] 12-24-2021 09:11-0400 Diastolic blood pressure 60 mm[Hg] Pam Plotts RESTAURANT COOK.CNM Work Phone: [facility] 12-24-2021 09:11-0400 Systolic blood pressure 98 mm[Hg] Pam Yarbrough RESTAURANT COOK.CNM Work Phone: [facility] 11-13-2021 09:32-0400 Body weight 55.79 kg Yuliana Carlos MD Work Phone: [facility] 11-13-2021 09:32-0400 Diastolic blood pressure 64 mm[Hg] Yuliana Carlos MD Work Phone: [facility] 11-13-2021 09:32-0400 Systolic blood pressure 110 mm[Hg] Yuliana Carlos MD Work Phone: [facility] 11-06-2021 10:16-0400 Body height 160 cm Lauri Kessler MD Work Phone: [facility] 11-06-2021 10:16-0400 Body weight 54.43 kg Lauri Kessler MD Work Phone: [facility] 11-06-2021 10:16-0400 Diastolic blood pressure 58 mm[Hg] Lauri Kessler MD Work Phone: [facility] 11-06-2021 10:16-0400 Systolic blood pressure 94 mm[Hg] Lauri Kessler MD Work Phone: [facility] 11-06-2021 10:01-0400 Diastolic blood pressure 62 mm[Hg] Kimani Núñez MD Work Phone: [facility] 11-06-2021 10:01-0400 Systolic blood pressure 84 mm[Hg] Kimani Núñez MD Work Phone: [facility] 10-30-2021 09:30-0400 Body weight 54.52 kg Pam Yarbrough RESTAURANT COOK.CNM Work Phone: [facility] 10-30-2021 09:30-0400 Diastolic blood pressure 60 mm[Hg] Pam Yarbrough RESTAURANT COOK.CNM Work Phone: [facility] 10-30-2021 09:30-0400 Systolic blood pressure 100 mm[Hg] Pam Plotts RESTAURANT COOK.CNM Work Phone: [facility] 10-16-2021 09:35-0400 Body weight 52.89 kg Kimani Núñez MD Work Phone: [facility] 10-16-2021 09:35-0400 Diastolic blood pressure 54 mm[Hg] Kimani Núñez MD Work Phone: [facility] 10-16-2021 09:35-0400 Systolic blood pressure 88 mm[Hg] Kimani Núñez MD Work Phone: [facility] 10-02-2021 09:20-0400 Body weight 52.62 kg Pam Plotts RESTAURANT COOK.CNM Work Phone: [facility] 10-02-2021 09:20-0400 Diastolic blood pressure 58 mm[Hg] Pam Plotts RESTAURANT COOK.CNM Work Phone: [facility] 10-02-2021 09:20-0400 Systolic blood pressure 90 mm[Hg] Pam Plotts RESTAURANT COOK.CNM Work Phone: [facility] 09-18-2021 11:09-0400 Body weight 51.71 kg Yuliana Carlos MD Work Phone: [facility] 09-18-2021 11:09-0400 Diastolic blood pressure 58 mm[Hg] Yuliana Carlos MD Work Phone: [facility] 09-18-2021 11:09-0400 Systolic blood pressure 104 mm[Hg] Yuliana Carlos MD Work Phone: [facility] 08-21-2021 10:00-0400 Body weight 48.08 kg Pam Plotts RESTAURANT COOK.CNM Work Phone: [facility] 08-21-2021 10:00-0400 Diastolic blood pressure 60 mm[Hg] Pam Plotts RESTAURANT COOK.CNM Work Phone: [facility] 08-21-2021 10:00-0400 Systolic blood pressure 100 mm[Hg] Pam Plotts RESTAURANT COOK.CNM Work Phone: [facility] 08-14-2021 11:45-0400 Body height 160 cm Lauri Kessler MD Work Phone: [facility] 08-14-2021 11:45-0400 Body weight 48.08 kg Lauri Kessler MD Work Phone: [facility] 07-24-2021 14:30-0400 Body weight 47.17 kg Yuliana Carlos MD Work Phone: [facility] 07-24-2021 14:30-0400 Diastolic blood pressure 60 mm[Hg] Yuliana Carlos MD Work Phone: [facility] 07-24-2021 14:30-0400 Systolic blood pressure 100 mm[Hg] Yuliana Carlos MD Work Phone: [facility] 07-03-2021 14:49-0400 Body weight 45.18 kg Yuliana Carlos MD Work Phone: [facility] 07-03-2021 14:49-0400 Diastolic blood pressure 42 mm[Hg] Yuliana Carlos MD Work Phone: [facility] 07-03-2021 14:49-0400 Systolic blood pressure 80 mm[Hg] Yuliana Carlos MD Work Phone: [facility] 06-05-2021 09:26-0400 Body weight 45.18 kg Kimani Núñez MD Work Phone: [facility] 06-05-2021 09:26-0400 Diastolic blood pressure 60 mm[Hg] Kimani Núñez MD Work Phone: [facility] 06-05-2021 09:26-0400 Systolic blood pressure 88 mm[Hg] Kimani Núñez MD Work Phone: [facility] Encounters Encounter Date Encounter Type Care Provider Facility Start: 12-24-2022 End: 12-27-2022 Evaluation and management of inpatient [facility] Facility:[facility] Start: 12-23-2022 End: 12-23-2022 Patient encounter procedure Ana Maria Sanchez MD Work Phone: OB/Gynecology Procedures Date Procedure Procedure Detail Performing Clinician Start: 12-24-2022 Antibody screen JESSICA AGUAYO Plan of Treatment Date Care Activity Detail Author Start: 05-21-2049 Shingles (RZV) Vaccine (1 of 2) Shingles (RZV) Vaccine (1 of 2) [facility] Start: 11-12-2032 Urine microalbumin profile DTaP,Tdap,Td Vaccine (11 - Td or Tdap) [facility] Start: 09-19-2031 Urine microalbumin profile [facility] Start: 06-20-2030 Tetanus vaccination Tetanus (Td) Booster [facility] Start: 06-20-2030 Urine microalbumin profile DTAP,TDAP,TD (9 - Td or Tdap) [facility] Start: 05-01-2024 PAP TESTING PAP TESTING [facility] Start: 07-11-2023 CHLAMYDIA SCREENING (18-24) CHLAMYDIA SCREENING (18-24) [facility] Start: 07-11-2023 GC (GONORRHEA) SCREENING (18-24) GC (GONORRHEA) SCREENING (18-24) [facility] Start: 11-30-2022 End: 01-30-2023 GEST GLUC NICHOLAS, 3-HR, 100 GM, FASTING GEST GLUC NICHOLAS, 3-HR, 100 GM, FASTING Lab Routine Abnormal glucose complicating Expected: 11/30/2022, Expires: 01/30/2023 [facility] Work Phone: Immunizations Immunization Date Immunization Notes Care Provider [facility] 11-12-2022 tetanus toxoid, redu esequiel diphtheria toxoid, and acellular pertussis vaccine, adsorbed Chapincito Zavala MD Work Phone: [facility] 11-16-2021 influenza, seasonal, injectable Kimani Núñez MD Work Phone: [facility] Work Phone: 11-16-2021 influenza virus vaccine, unspecified formulation Ob Ultrasound Work Phone: [facility] 09-18-2021 tetanus toxoid, redu esequiel diphtheria toxoid, and acellular pertussis vaccine, adsorbed Yuliaan Carlos MD Work Phone: [facility] 06-20-2020 tetanus toxoid, redu esequeil diphtheria toxoid, and acellular pertussis vaccine, adsorbed Kimani Núñez MD Work Phone: [facility] 02-02-2020 influenza, injectabl e, quadrivalent, contains preservative Kimani Núñez MD Work Phone: [facility] 03-03-2018 tetanus toxoid, redu esequiel diphtheria toxoid, and acellular pertussis vaccine, adsorbed Kimani Núñez MD Work Phone: [facility] 12-27-2017 influenza, injectabl e, quadrivalent, contains preservative Kimani Núñez MD Work Phone: [facility] 02-05-2016 meningococcal B vaccine, recombinant, OMV, adjuvanted Acacia Alexander DMD, MD Work Phone: [facility] 01-01-2016 meningococcal B vaccine, recombinant, OMV, adjuvanted Acacia Alexanedr DMD, MD Work Phone: [facility] 08-15-2015 meningococcal polysaccharide (groups A, C, Y and W-135) diphtheria toxoid conjugate vaccine (MCV4P) Kimani Núñez MD Work Phone: [facility] 01-03-2015 influenza, seasonal, injectable Kimani Núñez MD Work Phone: [facility] 11-29-2013 influenza, seasonal, injectable Kimani Núñez MD Work Phone: [facility] 11-06-2013 meningococcal polysaccharide (groups A, C, Y and W-135) diphtheria toxoid conjugate vaccine (MCV4P) Kimani Núñez MD Work Phone: [facility] 04-13-2013 hepatitis A vaccine, pediatric/adolescent dosage, 2 dose schedule Kimani Núñez MD Work Phone: [facility] 04-13-2013 human papilloma viru s vaccine, quadrivalent Kimani Núñez MD Work Phone: [facility] 11-30-2012 HPV, unspecified formulation Kimani Núñez MD Work Phone: [facility] 11-30-2012 influenza, injectabl e, quadrivalent, preservative free Kimani Núñez MD Work Phone: [facility] 09-27-2012 hepatitis A vaccine, pediatric/adolescent dosage, 2 dose schedule Kimani Núñez MD Work Phone: [facility] 09-27-2012 HPV, unspecified formulation Kimani Núñez MD Work Phone: [facility] 09-27-2012 measles, mumps and rubella virus vaccine Kimani Núñez MD Work Phone: [facility] 09-27-2012 meningococcal polysaccharide (groups A, C, Y and W-135) diphtheria toxoid conjugate vaccine (MCV4P) Kimani Núñez MD Work Phone: [facility] 09-27-2012 poliovirus vaccine, inactivated Kimani Núñez MD Work Phone: [facility] 09-27-2012 tetanus toxoid, redu esequiel diphtheria toxoid, and acellular pertussis vaccine, adsorbed Kimani Núñez MD Work Phone: [facility] 09-27-2012 varicella virus vaccine Laurel Núñez MD Work Phone: [facility] 10-16-2004 diphtheria, tetanus toxoids and acellular pertussis vaccine Kimani Núñez MD Work Phone: [facility] 10-16-2004 measles, mumps and rubella virus vaccine Kimani Núñez MD Work Phone: [facility] 10-16-2004 poliovirus vaccine, inactivated Kimani Núñez MD Work Phone: [facility] 03-21-2003 diphtheria, tetanus toxoids and acellular pertussis vaccine, unspecified formulation Kimani Núñez MD Work Phone: [facility] 03-21-2003 poliovirus vaccine, unspecified formulation Kimani Núñez MD Work Phone: [facility] 08-24-2000 haemophilus influenz ae type b vaccine, conjugate unspecified formulation Kimani Núñez MD Work Phone: [facility] 08-24-2000 measles, mumps and rubella virus vaccine Kimani Núñez MD Work Phone: [facility] 08-24-2000 poliovirus vaccine, inactivated Kimani Núñez MD Work Phone: [facility] 05-24-2000 pneumococcal conjuga te vaccine, 7 valent Kimani Núñez MD Work Phone: [facility] 05-24-2000 varicella virus vaccine Laurel Núñez MD Work Phone: [facility] 02-26-2000 pneumococcal conjuga te vaccine, 7 valent Kimani Núñez MD Work Phone: [facility] 1999 diphtheria, tetanus toxoids and acellular pertussis vaccine, unspecified formulation Kimani Núñez MD Work Phone: [facility] 1999 haemophilus influenz ae type b vaccine, conjugate unspecified formulation Kimani Núñez MD Work Phone: [facility] 1999 hepatitis B vaccine, pediatric or pediatric/adolescent dosage Kimani Núñez MD Work Phone: [facility] [facility] poliovirus vaccine, inactivated Kimani Núñez MD Work Phone: [facility] 1999 diphtheria, tetanus toxoids and acellular pertussis vaccine, unspecified formulation Kimani Núñez MD Work Phone: [facility] 1999 haemophilus influenz ae type b vaccine, conjugate unspecified formulation Kimani Núñez MD Work Phone: [facility] 1999 poliovirus vaccine, unspecified formulation Kimani Núñez MD Work Phone: [facility] 1999 diphtheria, tetanus toxoids and acellular pertussis vaccine, unspecified formulation Kimani Núñez MD Work Phone: [facility] 1999 haemophilus influenz ae type b vaccine, conjugate unspecified formulation Kimani Núñez MD Work Phone: [facility] 1999 poliovirus vaccine, unspecified formulation Kimani Núñez MD Work Phone: [facility] 1999 hepatitis B vaccine, pediatric or pediatric/adolescent dosage Kimani Núñez MD Work Phone: [facility] 1999 hepatitis B vaccine, pediatric or pediatric/adolescent dosage Kimani Núñez MD Work Phone: [facility] Payers Date Payer Category Payer Medicaid [place] [employer] [facility] MEDICAID [id number] 2018-Present [phone] [address] [place] [address] Medicaid [id number] 2018 Medicaid [id number] 2017 Unknown [id number] 2008 Unknown 1999 Unknown [id number] 1999 Unknown [id number] 1999 Unknown [id number] 1999 Unknown [id number] Social History Date Type Detail Facility Start: 04-29-2017 End: 10-16-2021 Tobacco smoking status NHIS Never smoked tobacco [facility] Start: 04-29-2017 End: 10-16-2021 Tobacco use and exposure Smokeless tobacco non-user [facility] Start: 06-05-2021 End: 12-10-2022 Alcohol intake Current non-drinker of alcohol (finding) [facility] Start: 02-12-2021 History SDOH Alcohol Frequency 2 [facility] Start: 02-12-2021 History SDOH Alcohol Std Drinks 1 [facility] Start: 02-12-2021 History SDOH Social Connections Phone 3 [facility] Start: 02-12-2021 History SDOH Social Connections Living 8 [facility] Start: 02-12-2021 History SDOH Physica l Activity DPW 4 [facility] Start: 02-12-2021 History SDOH Stress 5 [facility] Start: 01-25-2020 Education 15 [facility] Start: 03-21-2021 [facility] Start: 2000 Sex Assigned At Female [facility] Start: 05-26-2021 End: 11-12-2021 Exposure to SARS-CoV-2 (event) Not sure [facility] Start: 1999 Sex Assigned At Not on file [facility] Start: 10-06-2021 End: 10-16-2021 Exposure to SARS-CoV-2 (event) Yes [facility] Start: 02-12-2021 End: 07-09-2022 History of Social function [facility] Start: 02-12-2021 End: 07-09-2022 Social connection and isolation panel [facility] Do you belong to any clubs or organizations such as moravian groups, unions, fraternal or athletic groups, or school groups? No [facility] Are you now , , , , never or living with a partner? Living with partner [facility] How often to you hav e a drink containing alcohol? Monthly or less [facility] How many standard dr inks containing alcohol do you have on a typical day? 1 or 2 [facility] How often do you hav e 6 or more drinks on 1 occasion? Never [facility] How hard is it for y ou to pay for the very basics like food, housing, medical care, and heating Somewhat hard [facility] Adult Depression Scr eening Assessment 4 [facility] Do you feel stress - tense, restless, nervous, or anxious, or unable to sleep at night because your mind is troubled all the time - these days [OSQ] Very much [facility] (I/We) worried wheth er (my/our) food would run out before (I/we) got money to buy more. Never true [facility] Start: 05-02-2018 Gender identity Identifies as female gender (finding) [facility] Start: 02-12-2021 Sexual orientation Heterosexual (halle yan) [facility] Goals Date Patient Goal Desired Activity /State Personal health goal Clinical Notes 06-21-2020 to 12-27-2022 Ana Maria Thompson MD - 12/23/2022 1:02 PM EDTPrenatal Quick Notes - Ana Maria Thompson MD - 12/23/2022 12:58 PM EDTPatient InstructionsKalan, Ev M, MD - 12/20/2022 5:54 PM EDT Note Date & Type Note Facility 12-27-2022 Note HNO ID: [id number] Author: Lyly Richter MD Service: Obstetrics Author [...] CDI with steristrips Discharge home today to [facility] Meds: tylenol, motrin, oxy Started taking [...] status post Charan, Girl A Keshia Trammell [[id number]] , Low Transverse delivery with female . [place], Girl B Keshia Trammell [[id number]] , Low Transverse delivery with female . [...] DATE: December 27, 2022 TIME: 1:50 AM [facility] 12-26-2022 Note HNO ID: [id number] Author: Mariajose Bruno DO Service: Obstetrics Author [...] who is Postoperative Day #2 status post Charan, Girl A Keshia Trammell [[id number]] , Low Transverse delivery with female . Charan, Girl B Keshia Trammell [[id number]] , Low Transverse delivery with female . [...] recent labs and imaging results. SIGNATURE: Mariajose Burno DO PATIENT NAME: Keshia Silverman DATE: December 26, 2022 TIME: 4:54 AM [facility] 12-25-2022 Note HNO ID: [id number] Author: Milagros Day RN Service: Nursing Author Type: Registered Nurse Type: Nursing Progress Note Filed: 12/25/2022 5:53 PM Note Text: Patient feeling bladder pressure. Up to bathroom per self. Voided 500cc. [facility] 12-25-2022 Note HNO ID: [id number] Author: Milagros Day RN Service: Nursing Author Type: Registered Nurse Type: Nursing Progress Note Filed: 12/25/2022 5:58 PM Note Text: Patient up to bathroom again to try to void but was unable to. [facility] 12-25-2022 Note HNO ID: [id number] Author: Isabelle Geronimo APRN.HEAT TREAT INSPECTOR Service: Obstetrics Author Type: Nurse Practitioner Type: Progress Notes Filed: 12/25/2022 10:31 AM Note Text: OBSTETRICS PROGRESS NOTE SERVICE DATE: December 25, 2022 SERVICE TIME: 1030 ASSESSMENT: 22 year old female who is Postoperative Day #1 status post [place], Girl A Keshia Trammell [[id number]] , Low Transverse delivery with female . [place], Girl B Keshia A [[id number]] , Low Transverse delivery with female . LTCS 12/24 BTL [place]/di girls in [place] removed Ambulated to [...] DATE: December 25, 2022 TIME: 10:30 AM [facility] 12-25-2022 Note HNO ID: [id number] Author: Liat Waller MD Service: Obstetrics Author Type: Resident Type: Progress Notes Filed: 12/25/2022 6:29 AM Note Text: OBSTETRICS PROGRESS NOTE SERVICE DATE: December 25, 2022 SERVICE TIME: 5:14 AM ASSESSMENT: 22 year old female who is Postoperative Day #1 status post Charan, Girl A Keshia Trammell [[id number]] , Low Transverse delivery with female . Charan, Girl B Keshia Trammell [[id number]] , Low Transverse delivery with female . [...] DATE: December 25, 2022 TIME: 5:13 AM [facility] 12-25-2022 Note HNO ID: [id number] Author: Debora Alonso DO Service: Obstetrics Author [...] Debora Alonso DO Obstetrics and Gynecology PGY-3 [facility] 12-24-2022 Note HNO ID: [id number] Author: Allan Oconnor APRN.CRNA Service: Anesthesiology Author Type: Nurse Bmx Rider Type: Anesthesia Procedure Notes Filed: 12/24/2022 9:30 PM Note Text: ANESTHESIOLOGY PROCEDURE NOTE Spinal Block General Information Procedure Start Time/Medication Administration: 12/24/2022 9:20 PM Patient location during procedure: OR Timeout Performed Pre-procedure: timeout performed Consent Obtained: Yes Patient identity confirmed: arm band and patient Reason for Block: labor epidural Staffing IMAGE ASSEMBLER: Allan Oconnor APRN.IMAGE ASSEMBLER Performed by: IMAGE ASSEMBLER Preparation Sterility Preparation: hand hygiene performed prior [...] Care Visit completed when applicable. Allan Oconnor APRN.IMAGE ASSEMBLER SIGNATURE: Allan Oconnor APRN.IMAGE ASSEMBLER PATIENT NAME: Keshia Silverman DATE: December 24, 2022 TIME: 9:29 PM CSN: [id number] [facility] 12-23-2022 Note HNO ID: [id number] Author: Ana Maria Thompson MD Service: ? [...] I reactive SIGNATURE: Ana Maria Mayberry MD [facility] 12-23-2022 History of Presen t illness Narrative [...] Maria Mayberry MD documented in this encounter [facility] 12-23-2022 Miscellaneous Notes DM-Pt doing well. [...] after ultrasound results. documented in this encounter [facility] 12-23-2022 Instructions Deanne Vo Ma - 12/23/2022 11:22 AM EDT SEQUENTIAL SCREENINGS The [facility] offers sequential screenings for women who [...] It will require an appointment with our oil heat technician. This is not an ultrasound performed [...] the above symptoms, contact our office at [phone] and ask to speak with a nurse. After hours, you can call doctors registry at [phone] OR call [facility] at [phone] and ask to have the doctor child nutrition director paged. If you consider this an emergency, dial 9-1-3 or go to your nearest emergency department. NEED HELP? Are you dealing with a violent or abusive relationship? Are you a victim of rape or sexual assult? Call [facility] ([place]) 24 hour Crisis Hotline: 793.784.6066 or 874-099-8423. MANUAL Your Guide to a Healthy manual is now on-line. Visit [email or web address] to download your free copy documented in this encounter [facility] 12-20-2022 Note HNO ID: [id number] Author: Ev Chang MD Service: ? Author Type: Physician Type: Progress Notes Filed: 12/20/2022 6:04 PM Note Text: MFM: 32w5d Laramie/di twins with h/o labor s/p BMZ course [...] Recommend 3 h GTT. Ev Chang MD [facility] 12-20-2022 History of Presen t illness Narrative MFM: 32w5d Laramie/di twins with h/o labor s/p BMZ course [...] Ev Chang MD documented in this encounter [facility] 12-18-2022 Note HNO ID: [id number] Author: Rosie Barnes RN Service: ? Author [...] Seo. Pt. Discharged home. Rosie Yin RN [facility] 12-18-2022 History of Presen t illness Narrative [...] Rosie Yin RN documented in this encounter [facility] 12-17-2022 Note HNO ID: [id number] Author: Rosie Barnes RN Service: ? Author [...] Chang. Pt. Discharged home. Rosie Yin RN [facility] 12-17-2022 Note HNO ID: [id number] Author: Ev Chang MD Service: ? Author [...] Baby B: Reactive SIGNATURE: Ev Chang MD [facility] 12-17-2022 Miscellaneous Notes . documented in this encounter [facility] 12-10-2022 Miscellaneous Notes KJ - VB No. LOF No. CTXS No. Movement: present x2 . Other c/o: No. Medication list reviewed. Physical Exam See Flow Sheet Gen: no accute distress, well appearing A/P 31w5d Estimated Date of Delivery: 02/06/23 Laramie/di twins - weekly US. S/p BMZ last week PLan for 3hr GTT next week PTL precautions reviewed, Kick counts reviewed. Kimani Núñez MD documented in this encounter [facility] 12-10-2022 Miscellaneous Notes Done Kimani Núñez MD Orders pending. BETINA BAGLEY RN If you could please put in 2 new ultrasound orders for her newly scheduled ultrasounds as the ones in her active request are closed so I can link them to her appointments. Thank you! Yuki Herrera PSS documented in this encounter [facility] 12-10-2022 Instructions Opal Hughes Ma - 12/10/2022 8:34 AM EDT SEQUENTIAL SCREENINGS The [facility] offers sequential screenings for women who [...] It will require an appointment with our oil heat technician. This is not an ultrasound performed [...] the above symptoms, contact our office at [phone] and ask to speak with a nurse. After hours, you can call doctors registry at [phone] OR call [facility] at [phone] and ask to have the doctor child nutrition director paged. If you consider this an emergency, dial 9--1 or go to your nearest emergency department. NEED HELP? Are you dealing with a violent or abusive relationship? Are you a victim of rape or sexual assult? Call [facility] ([place]) 24 hour Crisis Hotline: 257.609.3771 or 595-349-4391. MANUAL Your Guide to a Healthy manual is now on-line. Visit [email or web address] [email or web address] to download your free copy documented in this encounter [facility] 12-08-2022 Note HNO ID: [id number] Author: Zuri Clarke RN Service: Nursing Author Type: Registered Nurse Type: Procedures Filed: 12/08/2022 9:46 PM Note Text: Attestation signed by Abigail Parker MD at 12/09/2022 8:06 PM OBSTETRICS MONITORING ASSESSMENT On 12/08/2022, I interpreted the following NST NST Interpretation: Reactive (12/08/222044 : Abigail Parker MD) FHR Category: 1 (12/08/222114 : Zrui Clarke RN) Disposition: Continue Current Management (12/08/222044 [...] Zuri Clarke RN) Contractions: Irregular (12/08/222044 : uZri Clarke, RN) Frequency: x3 (12/08/222044 : Zuri Clarke, RN) Above information forwarded to (12/08/222044 : Zuri Clarke, RN) for final review and interpretation. SIGNATURE: Zuri Clarke RN PATIENT NAME: Keshia Silverman DATE: December 08, 2022 TIME: 9:46 PM [facility] 12-08-2022 Note HNO ID: [id number] Author: Naila Johnson MD Service: Obstetrics Author [...] strict return precautions. She stated her understanding. Niala Johnson MD [facility] 12-08-2022 Note HNO ID: [id number] Author: Naila Johnson MD Service: Obstetrics Author [...] disorder Father was in and out of usp, of heroin overdose in 01/09 Drug abuse [...] diarrhea : No dysuria, frequency or incontinence INVENTORY AUDITOR: Negative for abnormal vaginal bleeding, abnormal vaginal [...] gestation 07/10/2022 Overview Note: - Following with [facility] in [place] - Has been getting ultrasounds for TTTS [...] 2 hour cervical (more content not included)... [facility] 12-06-2022 Note HNO ID: [id number] Author: Jeet Calloway MD Service: Nursing Author [...] IMPRESSION: Reactive NST's x2. Jeet Calloway MD [facility] 12-06-2022 Note HNO ID: [id number] Author: Jeet Calloway MD Service: Maternal Medicine [...] Overview Note: - Following with [facility] in [place] - Has been getting ultrasounds for TTTS [...] being has been reassuring. Jeet Calloway MD [facility] documented as of this encounter (statuses as of 12/10/2022) [facility]10-14-2023 History of Past illness Narrative* Problem [...] 01/25/2020 11/05/2022 Overview: 07/09/2022atient was seen at [facility] on June 29 for nausea and [...] of this encounter (statuses as of 12/10/2022) [facility]10-14-2023 History of Past illness Narrative* Problem [...] 01/25/2020 11/05/2022 Overview: 07/09/2022atient was seen at [facility] on June 29 for nausea and [...] of this encounter (statuses as of 12/10/2022) [facility]10-14-2023 History of Past illness Narrative* Problem [...] 01/25/2020 11/05/2022 Overview: 07/09/2022atient was seen at [facility] on June 29 for nausea and [...] of this encounter (statuses as of 12/18/2022) [facility]10-14-2023 History of Past illness Narrative* Problem [...] 01/25/2020 11/05/2022 Overview: 07/09/2022atient was seen at [facility] on June 29 for nausea and [...] intake. SW 01/25/2020Patient was seen by Dr Carols 01/11 to discuss medications for low blood [...] of this encounter (statuses as of 12/20/2022) [facility]10-14-2023 History of Past illness Narrative* Problem [...] 01/25/2020 11/05/2022 Overview: 07/09/2022atient was seen at [facility] on June 29 for nausea and [...] of this encounter (statuses as of 12/23/2022) [facility]10-14-2023 NoteHNO ID: [id number] Author: Jeet Calloway MD Service: Nursing Author [...] regular. IMPRESSION: Reactive NST x2. Jeet Calloway, [facility]10-14-2023 NoteHNO ID: [id number] Author: Jeet Calloway MD Service: Obstetrics Author [...] Overview Note: - Following with [facility] in [place] - Has been getting ultrasounds for TTTS [...] house given advanced cervical exam. Jeet Calloway [facility]10-14-2023 NoteHNO ID: [id number] Author: Note, Interface Service: ? Author Type: ? Type: Progress Notes Filed: 12/05/2022 5:25 AM Note Text: Epic Scheduled Downtime: 12/05/2022 1:00:00 AM to 12/05/2022 1:28:00 [facility] NoteHNO ID: [id number] Author: Emma Wiley MD Service: Obstetrics Author [...] A 120/moderate/+accels/no decels Fetus B 125/moderate/+accels/no decels Jacona q5-20 min Emma Wiley MD OBGYN PGY-2 Pager #[phone] December 04, 2022 1:54 [facility]10-13-2023 NoteHNO ID: [id number] Author: Yuliana Arcos MD Service: Obstetrics Author [...] rate, symptoms to improve. Yuliana Arcos MD PROMOTIONS ASSISTANT SALES MARKETING PGY-2 December 04, 2022 4:06 [facility]10-10-2023 NoteHNO ID: [id number] Author: Malik Cherry MD Service: ? Author Type: Physician Type: Progress Notes Filed: 12/01/2022 11:49 AM Note Text: Dr. Chapincito Zavala NAME: Keshia Silverman CLINIC Number.: [id number] Date of : 2000 Date of Visit: [...] which included preparing to see the patient, [id number] patient care, completing clinical documentation, obtaining and/or reviewing separately obtained history, counseling and educating the patient/family/caregiver, ordering medications, tests, or procedures, independently interpreting results (not separately reported), and communicating results to the patient/family/caregiver. Sincerely, Dr. Malik Parraisis [facility]10-10-2023 History of Present illness Narrative* Malik Cherry MD - 12/01/2022 11:[address] Chapincito Zavala NAME: Keshia Silverman CLINIC Number.: [id number] Date of : 2000 Date of Visit: [...] which included preparing to see the patient, [id number] patient care, completing clinical documentation, obtaining and/or reviewing separately obtained history, counseling and educating the patient/family/caregiver, ordering medications, karine ts, or procedures, independently interpreting results (not separately reported), and communicating results to the patient/family/caregiver. Sincerely, Dr. Malik Cherry documented [facility] NoteHNO ID: [id number] Author: Emma Wiley MD Service: Obstetrics Author [...] patient. Emma Wiley MD OBGYN PGY-2 Pager #[phone] November 27, 2022 4:22 [facility]10-06-2023 NoteHNO ID: [id number] Author: Marcie Esparza, RN Service: Obstetrics Author [...] Esparza RN) Accelerations: Present (11/27/221512 : Marcie Esparza RN) Present (11/27/221512 : Marcie Esparza RN) [...] Silverman DATE: November 27, 2022 TIME: 3:18 [facility]10-06-2023 NoteHNO ID: [id number] Author: Emma Wiley MD Service: Obstetrics Author [...] MONITORING/ASSESSMENT: A 140/moderate/+accels/no decels B 135/moderate/+accels/no decels Jacona: irregular x2 LABS Diagnostic tests reviewed for [...] 27, 2022 TIME: 2:06 PM [phone] Miscellaneous Notes* Quick Notes - Pam Yarbrough [...] & 11/05 - Planning on delivery at [facility] P: 1) PTL precautions reviewed and when to call 2) RTO 2 weeks or sooner if needed Pam Yarbrough APRN.CNM documented [facility] Instructions* Patient Instructions* Dallin Skelton Cma - 11/26/2022 8:28 AM EDT SEQUENTIAL SCREENINGS The [facility] offers sequential screenings for women who [...] testing. It will require an appointment withour oil heat technician. This is not an ultrasound performed [...] the above symptoms, contact our office at [phone] and ask to speak with anurse. After hours, you can call doctors registry at [phone] OR call [facility] at [phone] ask to have the doctor child nutrition director paged. If you consider this an emergency, dial 6--6 or go to your nearest emergency department. NEED HELP? Are you dealing with a violent or abusive relationship? Are you a victim of rape or sexual assult? Call [facility] ([place]) 24 hour Crisis Hotline: 844.996.2351 or 549-336-7869. MANUAL Your Guide to a Healthy manual is now on-line. Visit [email or web address] to download your free copy documented in [facility] Miscellaneous Notes* Telephone Encounter - Osmel Eugene - 11/13/2022 8:42 AM EDT Reviewed patient on the 1st time treatment report. The patient does not have a cancer dx or a chemo/radiation regimen. No further Financial Navigator intervention is needed at this time. documented in this encounterHol[facility]-2023 NoteHNO ID: [id number] Author: Joanne Noguera Ma Service: ? Author [...] severely ill: Yes Patient denies history of Guillain-Dublin Syndrome (a severe paralytic illness): Yes Tdap Adacel injection was given without incident. See immunizations for details of immunizations administered today. VIS sheet provided: Yes Provider Dr Zavala was present in office at time of injection.[facility]09-21-2023 Miscellaneous Notes* Quick Notes - Chapincito Zavala [...] signed Chapincito Zavala M.D. documented in this encounterHol[facility] History of Present illness Narrative* Mone [...] severely ill: Yes Patient denies history of Guillain-Dublin Syndrome (a severe paralytic illness): Yes Tdap Adacel injection was given without incident. See immunizations for details of immunizations administered today. VIS sheet provided: Yes Provider Dr Zavala was present in office at time of injection. documented in this encounterHol[facility]23 Instructions* Patient Instructions* Joanne Noguera Ma - 11/12/2022 10:36 AM EDT SEQUENTIAL SCREENINGS The [facility] offers sequential screenings for women who [...] testing. It will require an appointment withour oil heat technician. This is not an ultrasound performed [...] the above symptoms, contact our office at [phone] and ask to speak with anurse. After hours, you can call doctors registry at [phone] OR call [facility] at [phone] ask to have the doctor child nutrition director paged. If you consider this an emergency, dial - or go to your nearest emergency department. NEED HELP? Are you dealing with a violent or abusive relationship? Are you a victim of rape or sexual assult? Call [facility] ([facility] 24 hour Crisis Hotline: 595.824.5386 or 768-638-5633. MANUAL Your Guide to a Healthy manual is now on-line. Visit [email or web address] to download your free copy documented in this encounterHolmes County [facility]09-20-2023 Miscellaneous Notes* Telephone Encounter - Huong Hagen RN - 11/11/2022 4:15 PM EDT Spoke to patient and notified hematology tried to reach her. Transferred to hem/onc PSS to scheduleiron infusions. Also canceled tomorrow's u/s per u/s tech since patient had one done at [facility] when she was admitted for PTL on 11/09/22. Huong Hagen RN * Telephone Encounter - Huong Hagen RN - 11/10/2022 10:[address] Wiley at [facility] updated too. Leave open until patient calls [...] PM EDT 27w2d Patient being discharged from [facility] today. Per Dr. Emma Wiley patient needs venofer 200mg outpatient infusions tomorrow and Wednesday this week. Message sent to blood management to checkon process. Dr. Wiley requesting epic message be sent to her once she is scheduled to update her. Huong Hagen RN documented in this encounterHolmes County [facility]09-19-2023 Miscellaneous Notes* Telephone Encounter - Yarelis Hermosillo - 11/10/2022 4:39 PM EDT Please see PROMOTIONS ASSISTANT SALES MARKETING encounter 11/09 * Telephone Encounter - Jenna Yadav RN - 11/10/2022 10:21 AM EDT Signed treatment plan for Venofer 200 mg IV x 2. PA pending. Provider is requesting scheduling nissa. documented in this encounterHolmes County [facility]09-18-2023 NoteHNO ID: [id number] Author: Jenna Yadav RN Service: ? Author [...] a provider for review and evaluation for treatment.[facility]09-18-2023 History of Present illness Narrative* Jenna Yadav, [...] and evaluation for treatment. documented in this encounterHolmes County [facility]09-18-2023 NoteHNO ID: [id number] Author: Minerva Hussein RN Service: Maternal Medicine Author Type: Registered Nurse Type: Procedures Filed: 11/09/2022 12:54 PM Note Text: Attestation signed by Hubert Brito MD at 11/09/2022 4:12 PM Reactive for gestational age sharonda Brito Division of Maternal Medicine [facility] OBSTETRICS NST SUMMARY SERVICE DATE: November [...] Silverman DATE: November 09, 2022 TIME: 12:52 [facility]09-18-2023 NoteHNO ID: [id number] Author: Emma Wiley MD Service: Obstetrics Author [...] gestation 07/10/2022 Priority: A - Following with [facility] in [place] - Has been getting ultrasounds for TTTS [...] and imaging results. SIGNATURE: (more content not included)...[facility]09-18-2023 NoteHNO ID: [id number] Author: Luz Peña RN Service: Nursing Author Type: Registered Nurse Type: Procedures Filed: 11/09/2022 12:14 AM Note Text: Attestation signed by Hubert Brito MD at 11/11/2022 12:21 PM Reactive for gestational age Hubert Brito Division of Maternal Medicine [facility] OBSTETRICS NST SUMMARY SERVICE DATE: November [...] Peña RN) Moderate (6-25 bpm) (11/08/222327 : Lzu Peña RN) Accelerations: Present (11/08/222327 : Luz [...] Silverman DATE: November 09, 2022 TIME: 12:13 [facility]09-17-2023 NoteHNO ID: [id number] Author: Yuliana Arcos MD Service: Obstetrics Author [...] Discussed with Dr. Ward. Yuliana Arcos MD PROMOTIONS ASSISTANT SALES MARKETING PGY-2 November 08, 2022 6:32 [facility]09-17-2023 NoteHNO ID: [id number] Author: Abigail Cruz RN Service: Nursing Author [...] Silverman DATE: November 08, 2022 TIME: 5:17 [facility]09-17-2023 NoteHNO ID: [id number] Author: Gerardo Portillo DO Service: Maternal Medicine [...] Overview Note: - Following with [facility] in [place] - Has been getting ultrasounds for TTTS [...] this morning. Keshia (more content not included)... [facility]09-17-2023 NoteHNO ID: [id number] Author: Note, Interface Service: ? Author Type: ? Type: Progress Notes Filed: 11/08/2022 3:08 AM Note Text: Epic Scheduled Downtime: 11/08/2022 1:02:01 AM to 11/08/2022 2:21:01 [facility]09-16-2023 NoteHNO ID: [id number] Author: Wilton Chaney MD Service: Obstetrics Author [...] RN) Decelerations: Decelerations: (!) Variable (11/07/222034 : Yasmeen Chen RN) Decel Frequency: Intermittent (11/07/222034 : [...] tracing for this gestational age, broken in spots.[facility]09-16-2023 NoteHNO ID: [id number] Author: Abigail Cruz, RN Service: Nursing Author [...] Interventions: MONITORING/ASSESSMENT: Baseline: 135 bpm (11/07/220 : bAigail Cruz, RN) 145 bpm (11/07/22 1030 : [...] Silverman DATE: November 07, 2022 TIME: 11:44 [facility]09-16-2023 NoteHNO ID: [id number] Author: Emma Wiley MD Service: Obstetrics Author [...] BP Resp O2 Sat (more content not included)...[facility] 11-07-2022 NoteHNO ID: [id number] Author: Note, Interface Service: ? Author Type: ? Type: Progress Notes Filed: 11/07/2022 5:01 AM Note Text: Epic Scheduled Downtime: 11/07/2022 1:00:00 AM to 11/07/2022 4:45:00 AMRedington[facility]-2023 NoteHNO ID: [id number] Author: Emma Wiley MD Service: Obstetrics Author [...] twin gestation 07/10/2022 -Following with [facility] in [place] -Has been getting ultrasounds for TTTS including [...] Silverman DATE: November 06, 2022 TIME: 6:41 [facility]09-14-2023 NoteHNO ID: [id number] Author: Milagros Walker APRN.IMAGE ASSEMBLER Service: Anesthesiology Author Type: Nurse Bmx Rider Type: Anesthesia Procedure Notes Filed: 11/05/2022 9:36 PM Note Text: ANESTHESIOLOGY PROCEDURE NOTE Epidural Block General Information Procedure Start Time/Medication Administration: 11/05/2022 9:25 PM Patient location during procedure: L[facility] room Timeout Performed Pre-procedure: timeout performed Consent Obtained: Yes Patient identity confirmed: arm band and patient Reason for block: labor epidural Staffing IMAGE ASSEMBLER: Milagros Walker APRN.IMAGE ASSEMBLER Performed by: IMAGE ASSEMBLER Preparation Sterility Preparation: hand hygiene performed prior [...] November 05, 2022 TIME: 9:35 PM CSN: [id number]-[facility]view [facility]09-14-2023 NoteHNO ID: [id number] Author: Yuliana Arcos MD Service: Obstetrics Author [...] Category I and reactive. Yuliana Arcos MD PROMOTIONS ASSISTANT SALES MARKETING PGY-2 November 05, 2022 8:28 [facility]09-14-2023 NoteHNO ID: [id number] Author: Yuliana Arcos MD Service: Obstetrics Author [...] exam, increased from prior. Dr. Munoz, Dr. Ward present for bedside discussion. Reviewed if further progression of cervical dilation, would recommend delivery by section given transverse presentation of Baby B and prematurity to 26 weeks and discordant AC/HC. Yuliana Arcos MD PROMOTIONS ASSISTANT SALES MARKETING PGY-2 November 05, 2022 06:40 [facility]09-14-2023 NoteHNO ID: [id number] Author: Yuliana Arcos MD Service: Obstetrics Author [...] visualized normal cardiac activity. Yuliana Arcos MD PROMOTIONS ASSISTANT SALES MARKETING PGY-2 November 05, 2022 6:30 [facility]09-14-2023 NoteHNO ID: [id number] Author: Joe Brock, RN Service: Nursing Author Type: Registered Nurse Type: Nursing Progress Note Filed: 11/05/2022 8:49 PM Note Text: Patient gave verbal consent for twins to receive erythromycin and vit k after .[facility]09-14-2023 History of Past illness Narrative* Problem [...] 01/25/2020 11/05/2022 Overview: 07/09/2022atient was seen at [facility] on June 29 for nausea and [...] of this encounter (statuses as of 11/10/2022) [facility]09-14-2023 History of Past illness Narrative* Problem [...] 01/25/2020 11/05/2022 Overview: 07/09/2022atient was seen at [facility] on June 29 for nausea and [...] of this encounter (statuses as of 11/10/2022) [facility]09-14-2023 History of Past illness Narrative* Problem [...] 01/25/2020 11/05/2022 Overview: 07/09/2022atient was seen at [facility] on June 29 for nausea and [...] of this encounter (statuses as of 11/10/2022) [facility]09-14-20[facility] History of Past illness Narrative* Problem [...] 01/25/2020 11/05/2022 Overview: 07/09/2022atient was seen at [facility] on June 29 for nausea and [...] of this encounter (statuses as of 11/12/2022) [facility]09-14-2023 History of Past illness Narrative* Problem [...] 01/25/2020 11/05/2022 Overview: 07/09/2022atient was seen at [facility] on June 29 for nausea and [...] of this encounter (statuses as of 11/13/2022) [facility]09-14-20[facility] History of Past illness Narrative* Problem [...] 01/25/2020 11/05/2022 Overview: 07/09/2022atient was seen at [facility] on June 29 for nausea and [...] of this encounter (statuses as of 11/13/2022) [facility]09-14-20[facility] History of Past illness Narrative* Problem [...] 01/25/2020 11/05/2022 Overview: 07/09/2022atient was seen at [facility] on June 29 for nausea and [...] of this encounter (statuses as of 11/27/2022) [facility]09-14-2023 History of Past illness Narrative* Problem [...] 01/25/2020 11/05/2022 Overview: 3Patient was seen at [facility] on June 29 for nausea and [...] of this encounter (statuses as of 11/28/2022) [facility]09-14-20[facility] History of Past illness Narrative* Problem [...] 01/25/2020 11/05/2022 Overview: 07/09/2022atient was seen at [facility] on June 29 for nausea and [...] of this encounter (statuses as of 12/01/2022) [facility]09-13-2023 NoteHNO ID: [id number] Author: Helena Mcintyre MD Service: Obstetrics Author [...] 04, 2022 TIME: 11:51 AM PAGER[id number] Miscellaneous Notes* Telephone Encounter - Yuliana Carlos MD - 11/02/2022 9:55 AM EDT See result note Flagyl sent documented in this encounterHolmes County [facility]09-07-2023 Miscellaneous Notes* Quick Notes - Yuliana [...] report pending at time of visit - [place] di twin gestation: Continue TTTS check q 2 weeks and weekly BPP at 32 wks - Cont vaginal progesterone - RTO 2 wks Yuliana Carlos DO documented in this encounterHolmes County [facility]09-07-2023 Instructions* Patient Instructions* Ev Rivero MA - 10/29/2022 10:42 AM EDT SEQUENTIAL SCREENINGS The [facility] offers sequential screenings for women who [...] testing. It will require an appointment withour oil heat technician. This is not an ultrasound performed [...] the above symptoms, contact our office at [phone] and ask to speak with anurse. After hours, you can call doctors registry at [phone] OR call [facility] at [phone] ask to have the doctor child nutrition director paged. If you consider this an emergency, dial 9-- or go to your nearest emergency department. NEED HELP? Are you dealing with a violent or abusive relationship? Are you a victim of rape or sexual assult? Call [facility] ([place]) 24 hour Crisis Hotline: 503.197.4890 or 729-575-3973. MANUAL Your Guide to a Healthy manual is now on-line. Visit [email or web address] to download your free copy documented in this encounterHolmes County [facility]08-24-2023 Miscellaneous Notes* Telephone Encounter - Chapincito Zavala MD - 10/15/2022 11:01 AM EDT Patient's request for medication is as follows Requested Prescriptions Signed Prescriptions Disp Refills progesterone micronized (PROMETRIUM) 100 mg capsule 30 capsule 3 Sig: Use 1 capsule vaginally daily at bedtime. Authorizing Provider: CHAPINCITO ZAVALA Order entered - please phone pharmacy and notify patient. Chapinciot Zavala MD thanks. * Telephone Encounter - Abigail Jurado RN - 10/15/2022 10:18 AM EDT Spoke with patient. Agreeable to vaginal progesterone. Would like RX sent to [facility] in [place]. Abigail Jurado RN * Telephone Encounter - Chapincito Zavala MD - 10/15/2022 10:[address] Kessler from [facility] contacted me about starting the patient on vaginal progesterone for short cervix and history of delivery. I believe she discussed this with the patient earlier in the . Confirmed patient is comfortable with this and pharmacy and I will send this in for her. Chapincito Zavala MD documented in this encounterHolmes County [facility]08-23-2023 Miscellaneous Notes* Quick Notes - Chapincito [...] pepcid. Chapincito Zavala M.D. documented in this encounterHolmes County [facility]08-23-2023 Instructions* Patient Instructions* Joanne Noguera Ma - 10/14/2022 1:03 PM EDT SEQUENTIAL SCREENINGS The [facility] offers sequential screenings for women who [...] testing. It will require an appointment withour oil heat technician. This is not an ultrasound performed [...] the above symptoms, contact our office at [phone] and ask to speak with anurse. After hours, you can call [employer] registry at [phone] OR call [facility] at [phone] ask to have the doctor child nutrition director paged. If you consider this an emergency, dial 9- or go to your nearest emergency department. NEED HELP? Are you dealing with a violent or abusive relationship? Are you a victim of rape or sexual assult? Call [facility] ([place]) 24 hour Crisis Hotline: 422.619.4340 or 392-881-1839. MANUAL Your Guide to a Healthy manual is now on-line. Visit [email or web address] to download your free copy documented in this encounterHolmes County [facility]07-25-2023 NoteHNO ID: [id number] Author: Lauri Kessler MD Service: ? Author [...] disorder Father was in and out of usp, of heroin overdose in 01/09 Drug abuse [...] Monochorionic diamniotic twin gestat (more content not included)...[facility]07-14-2023 NoteHNO ID: [id number] Author: Usman Ang MD Service: ? Author [...] PERMETHRIN 5 % TOPICAL CREAM Usman Ang [facility]07-14-2023 History of Present illness Narrative* Usman [...] CREAM Usman Ang MD documented in this encounterHolmes County [facility]07-06-2023 Miscellaneous Notes* Quick Notes - Kimani Núñez MD - 08/27/2022 9:21 AM EDT KJ - No VB/LOF. Reports occ mild ctx. Movement: absent. Other c/o: Yes: GI: heartburn Medication list reviewed. Physical Exam See Flow Sheet Gen: no accute distress, well appearing A/P 16w5d Estimated Date of Delivery: 02/06/23 [place]-di twins - reviewed recommendation for every 2 week US GERD - rx pepcid Kimani Núñez MD documented in this encounterHolmes County [facility]07-06-2023 Instructions* Patient Instructions* Ev Rivero MA - 08/27/2022 8:26 AM EDT SEQUENTIAL SCREENINGS The [facility] offers sequential screenings for women who [...] testing. It will require an appointment withour oil heat technician. This is not an ultrasound performed [...] the above symptoms, contact our office at [phone] and ask to speak with anurse. After hours, you can call doctors registry at [phone] OR call [facility] at [phone] ask to have the doctor child nutrition director paged. If you consider this an emergency, dial 9-1-6 or go to your nearest emergency department. NEED HELP? Are you dealing with a violent or abusive relationship? Are you a victim of rape or sexual assult? Call [facility] ([place]) 24 hour Crisis Hotline: 960.139.9397 or 103-627-3684. MANUAL Your Guide to a Healthy manual is now on-line. Visit [email or web address] to download your free copy documented in this encounterHolmes County [facility]06-20-2023 NoteHNO ID: [id number] Author: Maame Harmon [facility] Service: ? Author Type: Genetic Counselor Type: Progress Notes Filed: 08/11/2022 10:01 PM Note Text: Summary: NIPS Order Change for Twin Gestation Received notification from [facility] that Ms. Silverman's noninvasive screen (NIPS) could [...] OB provider for awareness. Maame Harmon MS, [facility] Licensed Genetic CounselorCleveland Clinic [facility]06-20-2023 History of Present illness Narrative* SHYAM Pereira [...] OB provider for awareness. Maame Harmon MS, [facility] Licensed Genetic Counselor documented in this encounterHolmes County [facility]06-13-2023 Miscellaneous Notes* Quick Notes - Kimani [...] possible. Kimani Núñez MD documented in this encounterHolmes County [facility]06-13-2023 Instructions* Patient Instructions* Joanne Noguera Ma - 08/04/2022 3:09 PM EDT SEQUENTIAL SCREENINGS The [facility] offers sequential screenings for women who [...] testing. It will require an appointment withour oil heat technician. This is not an ultrasound performed [...] the above symptoms, contact our office at [phone] and ask to speak with anurse. After hours, you can call doctors registry at [phone] OR call [facility] at [phone] ask to have the doctor child nutrition director paged. If you consider this an emergency, dial 91-8 or go to your nearest emergency department. NEED HELP? Are you dealing with a violent or abusive relationship? Are you a victim of rape or sexual assult? Call [facility] ([place]) 24 hour Crisis Hotline: 513.909.7185 or 047-534-8040. MANUAL Your Guide to a Healthy manual is now on-line. Visit [email or web address] to download your free copy documented in this encounterHolmes County [facility]05-19-2023 NoteHNO ID: [id number] Author: Kimani Núñez MD Service: ? Author Type: Physician Type: Progress Notes Filed: 07/10/2022 12:00 PM Note Text: INITIAL OB ASSESSMENT Linux Support Engineer offered: Patient declines. 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 Author [...] Apgar1: 8, Apgar5: 9, Living: Living, Comments: [place] inj, spontaneous labor, IUGR, EBL 350mL, methergine IM x1, no lacerations, loose nuchal and body cord # 4 - Date: None, Sex: None, Weight: None, GA: None, Delivery: None, Apgar1: None, Apgar5: None, Living: None, Comments: NoneC[facility]05-09-2023 Miscellaneous Notes* Telephone Encounter - Bozena Anderson [...] LMP 05/02/22 approximately 8w3d Patient went to [facility] ER yesterday because she was unable to [...] too. Abigail Jurado RN documented in this encounterHolmes County [facility]05-08-2023 Miscellaneous Notes* Telephone Encounter - Chapincito [...] to: self Call patient at: on cell [phone] (home) [phone] (work) [phone] (cell) Payor: [place] MEDICA[place] / Plan: [facility] MEDICAID / Product Type: Medicaid / [facility] Rep documented in this encounterHolmes County Joel [facility]04-11-2023 NoteHNO ID: [id number] Author: Mat Alcala APRN.CNP Service: ? Author [...] disorder Father was in and out of usp, of heroin overdose in 01/09 Drug abuse [...] PROPIONATE 50 MCG/ACTUATION NASAL SPRAY,SUSPENSION Mat Alcala APRN.CNPCleveland Clinic Children'S Hospital [facility]04-11-2023 History of Present illness Narrative* Mat Alcala [...] disorder Father was in and out of usp, of heroin overdose in 01/09 Drug abuse [...] PROPIONATE 50 MCG/ACTUATION NASAL SPRAY,SUSPENSION Mat Alcala APRN.HEAT TREAT INSPECTOR documented in this encounterHolmes County [facility]04-06-2023 NoteHNO ID: [id number] Author: Usman Ang MD Service: ? Author [...] fever/chills, or foul tasting drainage. Usman Ang, [facility]04-06-2023 History of Present illness Narrative* Usman [...] drainage. Usman Ang MD documented in this encounterHolmes County [facility]03-22-2023 Miscellaneous Notes* Telephone Encounter - Meir [...] you. Ewelina Hale LPN documented in this encounterHolmes County Joel [facility]omerene [facility]01-05-2023 NoteHNO ID: [id number] Author: Meir Nix APRN.CNP Service: ? Author [...] disorder Father was in and out of usp, of heroin overdose in 01/09 Drug abuse [...] 1 tablet by mouth once daily. PNV no.[id number]-WE-[id number]-dps-eqz-ocbh ( GUMMIES) 400 mcg-35 mg- 25 mg-5 [...] Oral contraceptive pill surveilla (more content not included)...[facility]01-05-2023 History of Present illness Narrative* Meir Nix, KISHORE.HEAT TREAT INSPECTOR - 02/26/2022 2:18 PM EST Chief Complaint [...] disorder Father was in and out of usp, of heroin overdose in 01/09 Drug abuse [...] Take 1 tablet bymouth once daily. PNV no.068-ZO-og4-egp-qvc-dctm ( GUMMIES) 400 mcg-35 mg- 25 mg-5 [...] Adderall. Meir Nix APRN.DELPHINE documented in this encounterHolmes County [facility]12-05-2022 NoteHNO ID: [id number] Author: Meir Nix APRN.DELPHINE Service: ? Author [...] disorder Father was in and out of usp, of heroin overdose in 01/09 Drug abuse [...] File Prior to Visit Medication Sig PNV no.316-EU-bp6-gii-vam-djpu ( GUMMIES) 400 mcg-35 mg- 25 mg-5 [...] activity was identified. 01/26/2022 by Meir Nix CNP.[facility]11-02-2022 Instructions* Patient Instructions* Pam Yarbrough APRN.CNM - 12/24/2021 9:28 AM EDT Here are some links for wonderful Providers here in the community and surrounding areas. Do not hesitate to contact their offices, many are offering virtual visits during this time. 4-739-2-JORJ4DROK - [place] Maternal Mental Health Hotline If you are in suicidal crisis, please call or text 1-992-484-TALK ( ) or visit the National Suicide Prevention Lifeline website. [facility] hospitalsa.gov [facility] Psychology, Psychiatry, Counseling Connect with therapist/ can do virtual visits [phone] Referral to the [facility] To schedule an appointment, please call the [place] for [facility] Appointment Line: [phone] option 1 [facility] - [place], [place] [address] [place] [address] [facility] [address] [place] [address] [facility] [address] [place] [address] [facility] [address] [place], [place] [id number] Christiano Huffman MD [address] [place], [place] [id number] [facility] [address], [address] [place] [address] [facility] [address] [place] [address] [facility] [place] / [place] [phone]/ [phone] Mary Ellen Jaimes [address] [facility] [phone] [facility] [place] / [place] [phone] [facility] [address] [place] [address]/ [place] [phone] Rashad Guzman, NAYA, [facility] Workshops, telehealth and at home visits. [phone] [facility] counseling center 20 locations [place], [place], [place], [place], [place], [place], [place], [facility], [place], [place], [place], [place], [place], [place], [facility], [place], [place] ,[facility], [place], [place],[facility], [facility], [place], [facility], Neo mora www.NealyWear [phone] Psychotherapy resources outside of [facility] are listed below [facility] Space Psychotherapy Web: https://www.Utility Scale Solarcle.Leap/ Support International Online Provider Directory https://Gripati Digital Entertainment/ Insight Counseling https://Ipanema Technologies/ Partners for Behavioral Health and Wellness Web: https://AltraTech/ FlockTAG for Effective Living Web: https://Anova Culinaryliving.Leap/ LifeStance Web: https://LIFEmee.Leap/location/state/[place]/ [facility] Web: https://www.[facility].org/ [facility] Web: https://Visitar.HomeShop18/ Recovery Resources Mental health and substance abuse help Web: https://www.Yeti Datas.HomeShop18 & RESOURCES Support International Direct peer support and connection to professional resources Non-Emergency Helpline Phone: / Text: 366.587.4802 Web: https://www..net/ Online Provider Directory: https://Gripati Digital Entertainment/ Online Support Meetings: https://www..net/get-help/vqo-ewlvrr-lplaxqf-meetings/ KASEY Baby and Flower Shop Laborer/Designer Services Web: https://wwwEnzymotec/ MotherToIkanos Expert information on medication use during and Text: 485.207.8848 Web: https://BuyerCurious/ NATIONAL REGISTRY FOR PSYCHIATRIC MEDICATIONS Currently studying the safety of antidepressants, ADHD medications and atypical antipsychotics taken during TO PARTICIPATE CALL TOLL-FREE: Web: https://womensmentalhealth.org/research/pregnancyregistry/ Support Groups: [facility]- Follow on facebook Baby Bistro support group led by [facility] department Resilient Mamas - Support Group [facility].org The POEM support group [phone] Www.poDocDocline.org Follow on facebook - THERESE [facility] Online support meetings PSI https://www..net/get-help/dli-btkhqq-kwajbex-meetings/ [facility] mommy and me virtual support group 11:30-1pm Support for mothers and new babies and toddlers [place] childbirth education: Childbirth @[facility].org or call [phone] CRISIS: CRISIS HOTLINE [phone], 911 or go to the nearest ER. [facility] [phone] / [facility] [phone] https://www.[facility].org Crisis text line text the word HOME to [id number] documented in this encounterHolmes County [facility]11-02-2022 History of Present illness Narrative* Pam Yarbrough APRN.CNM - 12/24/2021 9:04 AM EDT VISIT Keshia Silverman is a 21 year old year old here for visit. Delivery Summary: Patient delivered via by Pam Yarbrough on 11/14/21 at [facility] ROS/ Recovery: Feeding: Breast feeding problems: None Menses since delivery: none Menstrual pattern prior to : Regular periods [place] since delivery: Not resumed Depression: denies symptoms [...] for infant. Does not like to leave infant with any other family members. Feels like [...] disorder Father was in and out of usp, of heroin overdose in 01/09 Drug abuse [...] external genitalia normal, normal Bartholin's glands, urethra, [place]'s glands, no vulvar lesions, no cervical lesions, [...] exams Pam Yarbrough APRN.CNM documented in this encounterHolmes County [facility]09-26-2022 History of Present illness Narrative* Huong Hagen RN - 11/17/2021 10:52 AM EDT Patient delivered via by Dorcas on 11/14/21 at [facility]. See OB history. Huong Hagen RN documented in this encounterHolmes County [facility]09-23-2022 Miscellaneous Notes* Telephone Encounter - Huong Hagen RN - 11/14/2021 9:13 AM EDT Patient [...] patient. Pam Yarbrough APRN.CNM documented in this encounterHolmes County [facility] Hospital09-22-2022 Miscellaneous Notes* Addendum Note - Yuliana [...] visits Yuliana Carlos DO documented in this encounterHolmes County [facility] Hospital09-22-2022 Instructions* Patient Instructions* Joanne Noguera Ma - 11/13/2021 9:25 AM EDT SEQUENTIAL SCREENINGS The [facility] offers sequential screenings for women who [...] testing. It will require an appointment withour oil heat technician. This is not an ultrasound performed [...] the above symptoms, contact our office at [phone] and ask to speak with anurse. After hours, you can call doctors registry at [phone] OR call [facility] at [phone] ask to have the doctor child nutrition director paged. If you consider this an emergency, dial 91-2 or go to your nearest emergency department. NEED HELP? Are you dealing with a violent or abusive relationship? Are you a victim of rape or sexual assult? Call [facility] ([place]) 24 hour Crisis Hotline: 115.580.5964 or 721-068-3623. MANUAL Your Guide to a Healthy manual is now on-line. Visit [facility]org/HealthyPregnancyGuide to download your free copy documented in this encounterHolmes County [facility] Hospital09-19-2022 Miscellaneous Notes* Telephone Encounter - Bozena Anderson RN - 11/10/2021 12:40 PM EDT Attempted to contact patient but no answer and unable to leave a message as voicemail box is full. Will attempt to contact patient again. MyChart message also sent. Bozena Anderson RN * Telephone Encounter - Alejandra ePrdomo APRN.CNM - 11/10/2021 12:36 PM EDT Please have patient come for appointment at 2:15. Thank you, Alejandra Perdmoo APRN.CNM * Telephone Encounter - Bozena Anderson [...] cramping. Bozena Anderson RN documented in this encounterHolmes County [facility]09-15-2022 History of Present illness Narrative* Kimani [...] SIGNATURE: Kimani Núñez MD documented in this encounterHolmes County [facility]09-08-2022 Miscellaneous Notes* Quick Notes - Pam [...] ICD9: V23.9, ICD10: O09.93 - Continue weekly [place] injections P: 1) PTL precautions reviewed and when to call 2) RTO 2 weeks or sooner if needed Pam Yarbrough APRN.CNM documented in this encounterHolmes County [facility]09-08-2022 Instructions* Patient Instructions* Ev Rivero MA - 10/30/2021 9:22 AM EDT SEQUENTIAL SCREENINGS The [facility] offers sequential screenings for women who [...] testing. It will require an appointment withour oil heat technician. This is not an ultrasound performed [...] the above symptoms, contact our office at [phone] and ask to speak with anurse. After hours, you can call doctors registry at [phone] OR call [facility] at [phone] ask to have the doctor child nutrition director paged. If you consider this an emergency, dial 9- or go to your nearest emergency department. NEED HELP? Are you dealing with a violent or abusive relationship? Are you a victim of rape or sexual assult? Call [facility] ([place]) 24 hour Crisis Hotline: 989.916.9351 or 880-985-9997. MANUAL Your Guide to a Healthy manual is now on-line. Visit [facility].org/HealthyPregnancyGuide to download your free copy documented in this encounterHolmes County [facility]08-25-2022 Miscellaneous Notes* Quick Notes - Kimani Núñez MD - 10/16/2021 9:58 AM EDT KJ - VB No. LOF No. CTXS No. Movement: present. Other c/o: No. Medication list reviewed. Physical Exam See Flow Sheet Gen: no accute distress, well appearing Abd: soft, nontender, gravid A/P 31w6d Estimated Date of Delivery: 12/12/21 IUGR - 7% on US today, await formal recs from [facility] but follow up US ordered. H/o PTD - continue Yuri Anemia - encouraged Fe & Regular PNV use PTL precautions reviewed, Kick counts reviewed. Kimani Núñez MD documented in this encounterHolmes County [facility]08-25-2022 Instructions* Patient Instructions* Opal Hughes Ma - 10/16/2021 9:09 AM EDT SEQUENTIAL SCREENINGS The [facility] offers sequential screenings for women who [...] testing. It will require an appointment withour oil heat technician. This is not an ultrasound performed [...] the above symptoms, contact our office at [phone] and ask to speak with anurse. After hours, you can call doctors registry at [phone] OR call [facility] at [phone] ask to have the doctor child nutrition director paged. If you consider this an emergency, dial -4 or go to your nearest emergency department. NEED HELP? Are you dealing with a violent or abusive relationship? Are you a victim of rape or sexual assult? Call [facility] ([place]) 24 hour Crisis Hotline: 524.342.6794 or 052-788-9492. MANUAL Your Guide to a Healthy manual is now on-line. Visit [facility].org/HealthyPregnancyGuide to download your free copy documented in this encounterHolmes County [facility]08-11-2022 Miscellaneous Notes* Quick Notes - Pam [...] needed Pam Yarbrough APRN.CNM documented in this encounterHolmes County [facility] Hospital08-11-2022 Instructions* Patient Instructions* Pam Yarbrough APRN.CNM - 10/02/2021 9:18 AM EDT Zyrtec 10 mg PO daily or Claritin daily for allergies SEQUENTIAL SCREENINGS The [facility] offers sequential screenings for women who [...] testing. It will require an appointment withour oil heat technician. This is not an ultrasound performed [...] the above symptoms, contact our office at [phone] and ask to speak with anurse. After hours, you can call [employer] at [phone] OR call [facility] at [phone] ask to have the doctor child nutrition director paged. If you consider this an emergency, dial 9-1-1 or go to your nearest emergency department. NEED HELP? Are you dealing with a violent or abusive relationship? Are you a victim of rape or sexual assult? Call [facility] ([place]) 24 hour Crisis Hotline: 717.523.9440 or 937-676-0738. MANUAL Your Guide to a Healthy manual is now on-line. Visit [facility].org/HealthyPregnancyGuide to download your free copy documented in this encounterHolmes County [facility]08-02-2022 Miscellaneous Notes* Telephone Encounter - Abigail [...] LOF , or VB. Spoke with provider child nutrition director, VERÓNICA. Patient was advised that she could go to L&D for reassurance if she wanted. Patient states getting evaluated would make her feel better. Updated H&P sent to L&D and notified. Abigail Jurado RN documented in this encounterHolmes County [facility]07-28-2022 Miscellaneous Notes* Quick Notes - Yuliana [...] wks Yuliana Carlos DO documented in this encounterHolmes County [facility]07-28-2022 History of Present illness Narrative* Joanne [...] severely ill: Yes Patient denies history of Guillain-Dublin Syndrome (a severe paralytic illness): Yes Tdap Adacel injection was given without incident. See immunizations for details of immunizations administered today. VIS sheet provided: Yes Provider Dr Carlos was present in office at time of injection. Joanne Noguera Ma documented in this encounterHolmes County [facility] Hospital07-28-2022 Instructions* Patient Instructions* Joanne Noguera Ma - 09/18/2021 10:52 AM EDT SEQUENTIAL SCREENINGS The [facility] offers sequential screenings for women who [...] testing. It will require an appointment withour oil heat technician. This is not an ultrasound performed [...] the above symptoms, contact our office at [phone] and ask to speak with anurse. After hours, you can call doctors registry at [phone] OR call [facility] at [phone] ask to have the doctor child nutrition director paged. If you consider this an emergency, dial 9-1-9 or go to your nearest emergency department. NEED HELP? Are you dealing with a violent or abusive relationship? Are you a victim of rape or sexual assult? Call [facility] ([place]) 24 hour Crisis Hotline: 404.236.3795 or 299-830-5463. MANUAL Your Guide to a Healthy manual is now on-line. Visit [facility].org/HealthyPregnancyGuide to download your free copy documented in this encounterHolmes County [facility]06-30-2022 History of Past illness Narrative* Problem [...] of this encounter (statuses as of 08/05/2022) [facility]06[facility] History of Past illness Narrative* Problem [...] of this encounter (statuses as of 08/12/2022) [facility]06[facility] History of Past illness Narrative* Problem [...] of this encounter (statuses as of 08/27/2022) [facility]06[facility] History of Past illness Narrative* Problem [...] of this encounter (statuses as of 08/28/2022) [facility]06[facility] History of Past illness Narrative* Problem [...] of this encounter (statuses as of 09/04/2022) [facility] History of Past illness Narrative* Problem [...] of this encounter (statuses as of 09/10/2022) [facility]06[facility] History of Past illness Narrative* Problem [...] of this encounter (statuses as of 10/01/2022) [facility] History of Past illness Narrative* Problem [...] of this encounter (statuses as of 10/07/2022) [facility] History of Past illness Narrative* Problem [...] of this encounter (statuses as of 10/14/2022) [facility] History of Past illness Narrative* Problem [...] of this encounter (statuses as of 10/15/2022) [facility] History of Past illness Narrative* Problem [...] of this encounter (statuses as of 10/15/2022) [facility] History of Past illness Narrative* Problem [...] of this encounter (statuses as of 10/29/2022) [facility] History of Past illness Narrative* Problem [...] of this encounter (statuses as of 10/30/2022) [facility] History of Past illness Narrative* Problem [...] of this encounter (statuses as of 11/02/2022) [facility]06[facility] History of Past illness Narrative* Problem [...] 02/02/2020 Overview: 04/19/18-Growth U/S at 31w6d, AGA, RBIANNA 12.8, 21st percentile. Will continue to watch fundal height. Consider growth U/S closer to 39 weeks. Alejandra Perdomo APRN.CNM Encounter for supervision of normal in teen primigravida, antepartum 04/05/2018 021 documented as of this encounter (statuses as of 11/03/2022) [facility]06-30-2022 Miscellaneous Notes* Quick Notes - Pam [...] needed Pam Yarbrough APRN.CNM documented in this encounterHolmes County [facility]06-30-2022 Instructions* Patient Instructions* Zuri Hennessy MA - 08/21/2021 9:49 AM EDT SEQUENTIAL SCREENINGS The [facility] offers sequential screenings for women who [...] testing. It will require an appointment withour oil heat technician. This is not an ultrasound performed [...] the above symptoms, contact our office at [phone] and ask to speak with anurse. After hours, you can call doctors registry at [phone] OR call [facility] at [phone] ask to have the doctor child nutrition director paged. If you consider this an emergency, dial 9--5 or go to your nearest emergency department. NEED HELP? Are you dealing with a violent or abusive relationship? Are you a victim of rape or sexual assult? Call [facility] ([place]) 24 hour Crisis Hotline: 220.654.4382 or 896-179-5246. MANUAL Your Guide to a Healthy manual is now on-line. Visit [facility]org/HealthyPregnancyGuide to download your free copy documented in this encounterHolmes County [facility]06-27-2022 Miscellaneous Notes* Telephone Encounter - Yuliana [...] up in 3 weeks documented in this encounterHolmes County [facility]06-22-2022 Miscellaneous Notes* Telephone Encounter - bAigail Jurado RN - 08/13/2021 4:40 PM EDT Linked to appointment * Telephone Encounter - Yuliana Carlos MD - 08/13/2021 4:39 PM EDT filed * Telephone Encounter - Abigail Jurado RN - 08/13/2021 4:31 PM EDT Please file pending US order for follow-up anatomy. Thank you. documented in this encounterHolmes County [facility]06-02-2022 Miscellaneous Notes* Quick Notes - Yuliana [...] wks Yuliana Carlos DO documented in this encounterHolmes County [facility]06-02-2022 Instructions* Patient Instructions* Ev Rivero MA - 07/24/2021 1:50 PM EDT SEQUENTIAL SCREENINGS The [facility] offers sequential screenings for women who [...] testing. It will require an appointment withour oil heat technician. This is not an ultrasound performed [...] the above symptoms, contact our office at [phone] and ask to speak with anurse. After hours, you can call doctors registry at [phone] OR call [facility] at [phone] ask to have the doctor child nutrition director paged. If you consider this an emergency, dial 9-1-5 or go to your nearest emergency department. NEED HELP? Are you dealing with a violent or abusive relationship? Are you a victim of rape or sexual assult? Call [facility] ([place]) 24 hour Crisis Hotline: 866.933.1963 or 309-193-6098. MANUAL Your Guide to a Healthy manual is now on-line. Visit [facility]org/HealthyPregnancyGuide to download your free copy documented in this encounterHolmes County [facility]05-12-2022 Miscellaneous Notes* Quick Notes - Yuliana [...] after Yuliana Carlos DO documented in this encounterHolmes County [facility]05-12-2022 Instructions* Patient Instructions* Ev Rivero MA - 07/03/2021 2:44 PM EDT SEQUENTIAL SCREENINGS The [facility] offers sequential screenings for women who [...] testing. It will require an appointment withour oil heat technician. This is not an ultrasound performed [...] the above symptoms, contact our office at [phone] and ask to speak with anurse. After hours, you can call doctors registry at [phone] OR call [facility] at [phone] ask to have the doctor child nutrition director paged. If you consider this an emergency, dial 9-1-1 or go to your nearest emergency department. NEED HELP? Are you dealing with a violent or abusive relationship? Are you a victim of rape or sexual assult? Call [facility] ([place]) 24 hour Crisis Hotline: 818.698.2798 or 712-415-2832. MANUAL Your Guide to a Healthy manual is now on-line. Visit [facility]org/HealthyPregnancyGuide to download your free copy documented in this encounterHolmes County [facility]05-04-2022 Miscellaneous Notes* Telephone Encounter - Alejandra [...] and she's been drinking water. See 06/18/21 Protagonist Therapeuticst message. Patient states she still continues to feel that she can not take a deep enough breath. Denies chest pain or tightness. Per RR message to patient in DSW Holdingshart message, patient to go to ER for worsening symptoms or if she passes out. Patient plans to go to [facility] ER. ARMANDO Jurado RN documented in this encounterHolmes County [facility]04-27-2022 Miscellaneous Notes* Telephone Encounter - Dara Beauchamp RN - 06/18/2021 2:24 PM EDT Hgb 12.2 2 weeks ago . Last seen 06/05/2021. Patient called back. Denies anxiety . No other symptoms except for occasional palpitations. Symptoms were not relieved by eating. States she is eating small frequent meals. Patient offered appt today. Would like to have Dr Zavala view Warply message and see what her thoughts are. She is aware that we may send her to PCP for evaluation documented in this encounterHolmes County [facility]04-25-2022 Miscellaneous Notes* Telephone Encounter - Lolis Gusman - 06/16/2021 1:44 PM EDT Patient owes $175.00 out of pocket 60 Min/GA/Main with Benjamin Rivero documented in this [id number] Miscellaneous Notes* Quick Notes - Kimani Núeñz MD - 06/05/2021 9:47 AM EDT KJ - VB No. LOF No. CTXS No. Movement: absent. Other c/o: Nausea is imporving but still has some emesis. Tolerating PO. Medication list reviewed. Physical Exam See Flow Sheet Gen: no accute distress, well appearing Abd: soft, nontender, gravid A/P 12w6d Estimated Date of Delivery: 12/12/21 NT today with sequential H/o PTD - start [place] at 16 weeks Start iron in addition to gummy Kimani Núñez MD documented in this encounterHolmes County [facility]04-14-2022 History of Present illness Narrative* Huong Hagen RN - 06/05/2021 9:29 AM EDT Patient here for First Trimester Screening. See ultrasound report for details. Options for genetic screening and diagnosis discussed with the patient. Patient opts for first trimester screening and the sequential screening protocol. Limitations of screening tests discussed withthe patient. Kimani Núñez MD documented in this encounterHolmes County [facility]04-14-2022 Instructions* Patient Instructions* Opal Hughes Ma - 06/05/2021 9:22 AM EDT SEQUENTIAL SCREENINGS The [facility] offers sequential screenings for women who [...] testing. It will require an appointment withour oil heat technician. This is not an ultrasound performed [...] the above symptoms, contact our office at [phone] and ask to speak with anurse. After hours, you can call doctors registry at [phone] OR call [facility] at [phone] ask to have the doctor child nutrition director paged. If you consider this an emergency, dial 9-1-5 or go to your nearest emergency department. NEED HELP? Are you dealing with a violent or abusive relationship? Are you a victim of rape or sexual assult? Call [facility] [place] [facility] Crisis Hotline: 234.836.7420 or 499-576-8692. MANUAL Your Guide to a Healthy manual is now on-line. Visit [facility].org/HealthyPregnancyGuide to download your free copy SEQUENTIAL TESTING PROCESS Sequential Screen First Trimester Today you are currently: 12w6d weeks 06/05/2021: Ultrasound and blood test. Sequential Screen Second Trimester (16-17 Weeks Gestation) When you are called with your results, the nurse will give the optimal draw dates for the Sequential screen second trimester. Blood testing can be done at any [facility] lab. Please report to the any vp research office hotel front desk clerk for the Sequential Part 2 requisition and [...] medicine office, for east side please call [phone] or for the West side call [phone] and ask for the the nurse. Thank you. documented in this encounterHolmes County [facility]04-30-2021 History of Past illness Narrative* Problem [...] of this encounter (statuses as of 06/05/2021) [facility]04-30-[facility] History of Past illness Narrative* Problem [...] of this encounter (statuses as of 06/05/2021) [facility]04[facility]30[facility] History of Past illness Narrative* Problem [...] of this encounter (statuses as of 06/18/2021) [facility]04[facility]30[facility] History of Past illness Narrative* Problem [...] of this encounter (statuses as of 06/25/2021) [facility]04-30-[facility] History of Past illness Narrative* Problem [...] of this encounter (statuses as of 07/03/2021) [facility]04-30-20[facility] History of Past illness Narrative* Problem [...] of this encounter (statuses as of 07/24/2021) [facility] History of Past illness Narrative* Problem [...] of this encounter (statuses as of 07/24/2021) [facility] History of Past illness Narrative* Problem [...] of this encounter (statuses as of 08/13/2021) [facility] History of Past illness Narrative* Problem [...] of this encounter (statuses as of 08/14/2021) [facility] History of Past illness Narrative* Problem [...] of this encounter (statuses as of 08/18/2021) [facility] History of Past illness Narrative* Problem [...] of this encounter (statuses as of 08/21/2021) [facility] History of Past illness Narrative* Problem [...] of this encounter (statuses as of 09/18/2021) [facility] History of Past illness Narrative* Problem [...] growth U/S closer to 39 weeks. Alejandra Perdoom APRN.CNM Encounter for supervision of normal in teen primigravida, antepartum 04/05/2018 08/01/2020 documented as of this encounter (statuses as of 09/23/2021) [facility] History of Past illness Narrative* Problem [...] of this encounter (statuses as of 10/02/2021) [facility] History of Past illness Narrative* Problem [...] of this encounter (statuses as of 10/16/2021) [facility] History of Past illness Narrative* Problem [...] of this encounter (statuses as of 10/16/2021) [facility] History of Past illness Narrative* Problem [...] of this encounter (statuses as of 10/23/2021) [facility] History of Past illness Narrative* Problem [...] of this encounter (statuses as of 10/30/2021) [facility] History of Past illness Narrative* Problem [...] of this encounter (statuses as of 10/30/2021) [facility] History of Past illness Narrative* Problem [...] of this encounter (statuses as of 11/06/2021) [facility] History of Past illness Narrative* Problem [...] of this encounter (statuses as of 11/06/2021) [facility] History of Past illness Narrative* Problem [...] of this encounter (statuses as of 11/10/2021) [facility] History of Past illness Narrative* Problem [...] of this encounter (statuses as of 11/13/2021) [facility] History of Past illness Narrative* Problem [...] of this encounter (statuses as of 11/13/2021) [facility] History of Past illness Narrative* Problem [...] of this encounter (statuses as of 11/14/2021) [facility] History of Past illness Narrative* Problem [...] of this encounter (statuses as of 11/17/2021) [facility] History of Past illness Narrative* Problem [...] of this encounter (statuses as of 12/24/2021) [facility] History of Past illness Narrative* Problem [...] of this encounter (statuses as of 03/02/2022) [facility] History of Past illness Narrative* Problem [...] of this encounter (statuses as of 05/13/2022) [facility] History of Past illness Narrative* Problem [...] of this encounter (statuses as of 05/28/2022) [facility] History of Past illness Narrative* Problem [...] of this encounter (statuses as of 06/03/2022) [facility] History of Past illness Narrative* Problem [...] of this encounter (statuses as of 06/30/2022) [facility] History of Past illness Narrative* Problem [...] of this encounter (statuses as of 07/01/2022) [facility] Diagnosis Supervision of other normal , antepartum- Primary 12 weeks gestation of state, incidental Encounter for screening of mother Unspecified screening documented in this encounter [facility] Diagnosis Encounter for (NT) nuchal translucency scan- Primary Other specified screening 12 weeks gestation of state, incidental [facility] Diagnosis 16 weeks gestation of - Primary state, incidental Supervision of other normal , antepartum documented [facility] this encounter [facility] Diagnosis Encounter for anatomic survey- Primary 19 weeks gestation of state, incidental History of delivery documented [facility] this encounter [facility] Diagnosis 19 weeks gestation of - Primary state, incidental Supervision of other normal , antepartum documented [facility] this encounter [facility] Diagnosis Encounter for follow-up ultrasound of anatomy- Primary documented [facility] this encounter [facility] Diagnosis Encounter for anatomic survey- Primary 22 weeks gestation of state, incidental documented [facility] this encounter [facility] Diagnosis 24 weeks gestation of - Primary state, incidental Uterine size-date discrepancy, second trimester documented [facility] this encounter [facility] Diagnosis Encounter for follow-up ultrasound of anatomy- Primary 23 weeks gestation of state, incidental [facility] this encounter [facility] Diagnosis 27 weeks gestation of - Primary state, incidental Supervision of high risk in second trimester Unspecified high-risk Need for vaccination Need for prophylactic vaccination and inoculation against unspecified single disease Request for sterilization Uterine size-date discrepancy, third trimester documented [facility] this encounter [facility] Diagnosis 29 weeks gestation of - Primary state, incidental Anemia complicating , third trimester Heartburn during in third trimester Uterine size-date discrepancy, third trimester documented [facility] this encounter [facility] Diagnosis IUGR (intrauterine growth restriction) affecting care of mother, third trimester, fetus 1- Primary 31 weeks gestation of state, incidental documented [facility] this encounter [facility] Diagnosis Supervision of high risk in third trimester- Primary Unspecified high-risk 31 weeks gestation of state, incidental Poor growth affecting management of mother in first trimester, single or unspecified fetus documented in this encounter [facility] Diagnosis IUGR (intrauterine growth restriction) affecting care of mother, third trimester, fetus 1- Primary 32 weeks gestation of state, incidental documented [facility] this encounter [facility] Diagnosis Poor growth affecting management of mother in third trimester, single or unspecified fetus- Primary 33 weeks gestation of state, incidental documented in this encounter [facility] Diagnosis 33 weeks gestation of - Primary state, incidental Supervision of high risk in third trimester Unspecified high-risk Poor growth affecting management of mother in third trimester, single or unspecified fetus documented in this encounter [facility] Diagnosis Poor growth affecting management of mother in first trimester, single or unspecified fetus- Primary documented in this encounter [facility] Diagnosis Intrauterine growth restriction (IUGR) affecting care of mother, third trimester, single gestation- Primary 34 weeks gestation of state, incidental documented in this encounter [facility] Diagnosis Poor growth affecting management of mother in first trimester, single or unspecified fetus- Primary 35 weeks gestation of state, incidental Poor growth affecting management of mother in third trimester, single or unspecified fetus documented in this encounter [facility] Diagnosis Poor growth affecting management of mother in third trimester, single or unspecified fetus- Primary 35 weeks gestation of state, incidental documented in this encounter [facility] Diagnosis care and examination- Primary Routine follow-up Anxiety Anxiety state, unspecified care and examination of lactating mother documented in this encounter [facility] Diagnosis Concentration deficit- Primary Attention or concentration deficit Oral contraceptive pill surveillance Surveillance of previously prescribed contraceptive pill documented in this encounter [facility] Diagnosis Concentration deficit Attention or concentration deficit documented in this encounter [facility] Diagnosis Pain, dental- Primary Unspecified disorder of the teeth and supporting structures documented in this encounter [facility] Diagnosis Bacterial sinusitis- Primary Unspecified sinusitis (chronic) documented in this encounter [facility] Diagnosis 13 weeks gestation of - Primary state, incidental Short interval between pregnancies affecting , antepartum Twin gestation in first trimester, unspecified multiple gestation type Monochorionic diamniotic twin , antepartum Twin , antepartum documented in this encounter [facility] Diagnosis 16 weeks gestation of - Primary state, incidental Short interval between pregnancies affecting , antepartum Monochorionic diamniotic twin , antepartum Twin , antepartum documented in this encounter [facility] Diagnosis Monochorionic diamniotic twin , antepartum- Primary Twin , antepartum 16 weeks gestation of state, incidental [facility] Diagnosis Exposure to scabies- Primary Contact with or exposure to other communicable diseases documented in this encounter [facility] Diagnosis Monochorionic diamniotic twin , antepartum- Primary Twin , antepartum 18 weeks gestation of state, incidental documented in this encounter [facility] Diagnosis Monochorionic diamniotic twin , antepartum Twin , antepartum [facility] Diagnosis Monochorionic diamniotic twin , antepartum- Primary Twin , antepartum 22 weeks gestation of state, incidental History of delivery, currently with history of pre-term labor documented [facility] this encounter [facility] Diagnosis Monochorionic diamniotic twin in second trimester- Primary Twin , antepartum 23 weeks gestation of state, incidental History of delivery, currently with history of pre-term labor Supervision of other high risk pregnancies, second trimester Dyspepsia Dyspepsia and other specified disorders of function of stomach documented in this encounter [facility] Diagnosis Monochorionic diamniotic twin , antepartum- Primary Twin , antepartum History of delivery 23 weeks gestation of state, incidental documented in this encounter [facility] Diagnosis Monochorionic diamniotic twin in second trimester- Primary Twin , antepartum Supervision of other high risk pregnancies, second trimester 25 weeks gestation of state, incidental [facility] Diagnosis 25 weeks gestation of - Primary state, incidental Monochorionic diamniotic twin in second trimester Twin , antepartum Vaginal itching Pruritus of genital organs [facility] Diagnosis BV (bacterial vaginosis)- Primary Vaginitis and vulvovaginitis, unspecified documented in this encounter [facility] Diagnosis Monochorionic diamniotic twin , antepartum Twin , antepartum Supervision of other high risk pregnancies, second trimester documented in this encounter [facility] Diagnosis Monochorionic diamniotic twin gestation in second trimester- Primary 27 weeks gestation of state, incidental documented in this encounter [facility] Diagnosis Maternal iron deficiency anemia complicating , second trimester Impaired intestinal absorption Unspecified intestinal malabsorption documented in this encounter [facility] Diagnosis Monochorionic diamniotic twin in second trimester- Primary Twin , antepartum Anemia during in second trimester documented in this encounter [facility] Diagnosis Monochorionic diamniotic twin in second trimester- Primary Twin , antepartum Anemia during in second trimester 27 weeks gestation of state, incidental Need for vaccination Need for prophylactic vaccination and inoculation against unspecified single disease Need for Tdap vaccination Need for prophylactic vaccination with combined [id number] (DTP) vaccine documented in this encounter [facility] Diagnosis Monochorionic diamniotic twin in third trimester- Primary Twin , antepartum 29 weeks gestation of state, incidental History of delivery, currently with history of pre-term labor documented in this encounter [facility] Diagnosis Monochorionic diamniotic twin in second trimester- Primary Twin , antepartum Supervision of other high risk pregnancies, second trimester 29 weeks gestation of state, incidental documented in this encounter [facility] Diagnosis Abnormal glucose complicating - Primary Abnormal maternal glucose tolerance, complicating , childbirth, or the puerperium, unspecified as to episode of care [facility] Diagnosis Maternal care for (suspected) abnormality and damage, unspecified, fetus 1 [O35.9XX1]- Primary documented in this encounter [facility] Diagnosis Monochorionic diamniotic twin gestation in third trimester- Primary documented in this encounter [facility] Diagnosis Monochorionic diamniotic twin gestation in third trimester- Primary 31 weeks gestation of state, incidental documented in this encounter [facility] Diagnosis Monochorionic diamniotic twin gestation in third trimester- Primary Supervision of other high risk pregnancies, second trimester 31 weeks gestation of state, incidental documented in this encounter [facility] Diagnosis Monochorionic diamniotic twin gestation in third trimester- Primary 32 weeks gestation of state, incidental documented in this encounter [facility] Diagnosis NST (non-stress test) reactive on surveillance- Primary Other specified screening Monochorionic diamniotic twin gestation in third trimester documented in this encounter [facility] Diagnosis Monochorionic diamniotic twin gestation in third trimester- Primary Polyhydramnios, third trimester, fetus 2 Supervision of high risk in third trimester Unspecified high-risk History of delivery, currently with history of pre-term labor 33 weeks gestation of state, incidental documented in this encounter [facility] for referral (narrative)* Diagnostic Procedure Only (Routine) - Authorized Specialty Diagnoses / Procedures Referred By Contac t Referred To Contact [facility] Diagnoses 16 weeks gestation of Supervision of other normal , antepartum Procedures OBSTETRIC ULTRASOUND WHI US PREG UTERUS AFTER 1ST TRIMEST 1 GESTATION Yuliana Carlos MD [address] [place] [address] [place] [id number] Referral ID Status Reason Start Date Expiration Date Visits Requested Visits Authorized [id number] Authorized Auto-Generat ed Referral 07/03/2021 07/03/2022 1 1 [facility] for referral (narrative)* Diagnostic Procedure Only (Routine) - Authorized Specialty Diagnoses / Procedures Referred By Contac t Referred To Contact [facility] Diagnoses Encounter for follow-up ultrasound of anatomy Procedures OBSTETRIC ULTRASOUND WHI US PREG UTERUS AFTER 1ST TRIMEST GESTATION Yuliana Carlos MD [address] [place] [address] [facility] [address] [place] [address] Referral ID Status Reason Start Date Expiration Date Visits Requested Visits Authorized [id number] Authorized Auto-Generat ed Referral 08/13/2021 08/13/2022 1 1 T [facility] for referral (narrative)* Diagnostic Procedure Only (Routine) - Pending Review Specialty Diagnoses / Procedures Referred By Contac t Referred To Contact [facility] Diagnoses Encounter for follow-up ultrasound of anatomy Procedures OBSTETRIC ULTRASOUND WHI US PREG UTERUS AFTER 1ST TRIMEST GESTATION Yuliana Carlos MD [address] [place] [address] [address] Referral ID Status Reason Start Date Expiration Date Visits Requested Visits Authorized [id number] Pending Review Auto-Generat ed Referral 08/18/2021 08/18/2022 1 1 [facility] for referral (narrative)* Diagnostic Procedure Only (Routine) - Pending Review Specialty Diagnoses / Procedures Referred By Contac t Referred To Contact [facility] Diagnoses Uterine size-date discrepancy, third trimester Procedures OBSTETRIC ULTRASOUND WHI US PREG UTERUS AFTER 1ST TRIMEST GESTATION Yuliana Carlos MD [address] [place] [address] [address] Referral ID Status Reason Start Date Expiration Date Visits Requested Visits Authorized [id number] Pending Review Auto-Generat ed Referral 09/18/2021 09/18/2022 1 1 T [facility] for referral (narrative)* Diagnostic Procedure Only (Routine) - Authorized Specialty Diagnoses / Procedures Referred By Contac t Referred To Contact [facility] Diagnoses 29 weeks gestation of Procedures OBSTETRIC ULTRASOUND WHI US PREG UTERUS AFTER 1ST TRIMEST GESTATION Pam Yarbrough APRN.CNM [address] [place] [address] [address] Referral ID Status Reason Start Date Expiration Date Visits Requested Visits Authorized [id number] Authorized Auto-Generat ed Referral 10/02/2021 10/02/2022 1 1 T [facility] for referral (narrative)* Diagnostic Procedure Only (Routine) - Authorized Specialty Diagnoses / Procedures Referred By Contac t Referred To Contact [facility] Diagnoses 31 weeks gestation of Poor growth affecting management of mother in first trimester, single or unspecified fetus Procedures OBSTETRIC ULTRASOUND WHI US PREG UTERUS AFTER 1ST TRIMEST GESTATION Kimani Núñez MD [address] [place] [address] [facility] [place] [address] Referral ID Status Reason Start Date Expiration Date Visits Requested Visits Authorized [id number] Authorized Auto-Generat ed Referral 10/16/2021 10/16/2022 1 1 * Diagnostic Procedure Only (Routine) - Pending Review Specialty Diagnoses / Procedures Referred By Contac t Referred To Contact [facility] Diagnoses 31 weeks gestation of Poor growth affecting management of mother in first trimester, single or unspecified fetus Procedures OBSTETRIC ULTRASOUND WHI US PREG UTERUS AFTER 1ST TRIMEST GESTATION Kimani Núñez MD [address] [place] [address] [facility] [place] [address] Referral ID Status Reason Start Date Expiration Date Visits Requested Visits Authorized [id number] Pending Review Auto-Generat ed Referral 10/16/2021 10/16/2022 1 1 [facility] for referral (narrative)* Diagnostic Procedure Only (Routine) - Authorized Specialty Diagnoses / Procedures Referred By Contac t Referred To Contact [facility] Diagnoses 13 weeks gestation of Monochorionic diamniotic twin , antepartum Procedures OBSTETRIC ULTRASOUND WHI US PREG UTERUS AFTER 1ST TRIMEST GESTATION Kimani Núñez MD [address] [place] [address] [facility] [address] [place] [address] Referral ID Status Reason Start Date Expiration Date Visits Requested Visits Authorized [id number] Authorized Auto-Generat ed Referral 08/04/2022 08/04/2023 1 1 * Consult, Test, Treat (Routine) - Authorized Specialty Diagnoses / Procedures Referred By Contac t Referred To Contact Diagnoses 13 weeks gestation of Short interval between pregnancies affecting , antepartum Twin gestation in first trimester, unspecified multiple gestation type Procedures CONSULT TO MATERNAL MEDI OFFICE/OUTPATIENT [facility] HIGH MDM 60-74 MINUTES Kimani Núñez MD [address] [place] [address] Referral ID Status Reason Start Date Expiration Date Visits Requested Visits Authorized [id number] Authorized PCP Requested Referral Auto-Generate d Referral 08/04/2022 08/04/2023 1 1 * Diagnostic Procedure Only (Routine) - Pending Review Specialty Diagnoses / Procedures Referred By Contac t Referred To Contact [facility] Diagnoses 13 weeks gestation of Short interval between pregnancies affecting , antepartum Twin gestation in first trimester, unspecified multiple gestation type Procedures OBSTETRIC ULTRASOUND WHI US PREG UTERUS AFTER 1ST TRIMEST GESTATION Kimani Núñez MD [address] [place] [address] [address] Referral ID Status Reason Start Date Expiration Date Visits Requested Visits Authorized [id number] Pending Review Auto-Generat ed Referral 08/04/2022 08/04/2023 1 1 [facility] for referral (narrative)* Diagnostic Procedure Only (Routine) - Authorized Specialty Diagnoses / Procedures Referred By Contac t Referred To Contact [facility] Diagnoses Monochorionic diamniotic twin , antepartum Procedures OBSTETRIC ULTRASOUND WHI US PREG UTERUS AFTER 1ST TRIMEST GESTATION Kimani Núñez MD [address] [place] [address] [facility] [address] [address] Referral ID Status Reason Start Date Expiration Date Visits Requested Visits Authorized [id number] Authorized Auto-Generat ed Referral 08/27/2022 08/27/2023 10 1 [facility] for referral (narrative)* Diagnostic Procedure Only (Routine) - Authorized Specialty Diagnoses / Procedures Referred By Contac t Referred To Contact [facility] Diagnoses 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 [address] [facility] [address] [place] [address] Referral ID Status Reason Start Date Expiration Date Visits Requested Visits Authorized [id number] Authorized Auto-Generat ed Referral 10/14/2022 10/14/2023 12 1 [facility] for referral (narrative)* Diagnostic Procedure Only (Routine) - Authorized Specialty Diagnoses / Procedures Referred By Contac t Referred To Contact [facility] Diagnoses Monochorionic diamniotic twin gestation in third trimester Procedures OBSTETRIC ULTRASOUND WHI US PREG UTERUS AFTER 1ST TRIMEST GESTATION Kimani Núñez MD [address] [place] [address] [facility] [address] [place] [address] Referral ID Status Reason Start Date Expiration Date Visits Requested Visits Authorized [id number] Authorized Auto-Generat ed Referral 3 12/10/2023 2 1 T [facility] for visit Narrative* Diagnostic Procedure Only (Routine) - Closed Specialty Diagnoses / Procedures Referred By Contac t Referred To Contact [facility] Diagnoses Monochorionic diamniotic twin , antepartum Supervision of other high risk pregnancies, second trimester Procedures OBSTETRIC ULTRASOUND WHI US PREG UTERUS AFTER 1ST TRIMEST GESTATION Chapincito Zavala MD [address] [place] [address] [address] Referral ID Status Reason Start Date Expiration Date V isits Requested Visits Authorized [id number] Closed Auto-Generate d Referral 09/15/2022 09/15/2023 1 1 [facility] Diagnostic Procedure Only (Routine) - Closed Specialty Diagnoses / Procedures Referred By Sylvester hernandez Referred To Contact [facility] Diagnoses Monochorionic diamniotic twin gestation in third trimester Procedures OBSTETRIC ULTRASOUND WHI US PREG UTERUS AFTER 1ST TRIMEST GESTATION Kimani Núñez MD [address] [place] [address] [address] Referral ID Status Reason Start Date Expiration Date V isits Requested Visits Authorized [id number] Closed Auto-Generate d Referral 12/10/2022 12/10/2023 2 1 [facility] Summary Purpose Family History No Family History Records FoundNo Family History Records FoundNo Family History Records FoundNo Family History Records FoundNo Family History Records FoundNo Family History Records FoundNo Family History Records FoundNo Family History Records FoundNo Family History Records Found Advance Directives No Advanced Directives Records FoundDocuments on File Type Date Recorded Patient Store Shopper 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 Advance Directive(s) 05/13/2021 1:53 PM Advance Directive(s) 03/02/2019 4:46 PM Advance Directive(s) 04/06/2018 9:17 AM Advance Directive(s) 01/26/2018 10:31 AM Advance Directive(s) 10/07/2017 5:53 PM Advance Directive(s) 08/06/2017 12:10 AM Documents on File Type Date Recorded Patient Store Shopper 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 Advance Directive(s) 05/13/2021 1:53 PM Advance Directive(s) 03/02/2019 4:46 PM Advance Directive(s) 04/06/2018 9:17 AM Advance Directive(s) 01/26/2018 10:31 AM Advance Directive(s) 10/07/2017 5:53 PM Advance Directive(s) 08/06/2017 12:10 AM Health Concerns Problem Noted Date [facility] - [facility] 06/22 [place] - [place] 07/10/2022 Problem Noted Date [facility] - [facility] 06/22 [place] - [place] 07/10/2022 Problem Noted Date [facility] - [facility] 06/22 [facility] - [place] 07/10/2022 Problem Noted Date [facility] - [facility] 06/22 [place] - [place] 07/10/2022 Problem Noted Date Diagnosed Date [facility] - [facility] 07/10/2022 [place] - [place] 07/10/2022 Problem Noted Date Diagnosed Date [facility] - [facility] 07/10/2022 Education - [place] 07/10/2022 Problem Noted Date Diagnosed Date [facility] - [facility] 07/10/2022 Education - [place] 07/10/2022 Problem Noted Date Diagnosed Date [facility] - [facility] 07/10/2022 Education - [place] 07/10/2022 Problem Noted Date Diagnosed Date [facility] - [facility] 07/10/2022 Education - [place] 07/10/2022 Problem Noted Date Diagnosed Date [facility] - [facility] 07/10/2022 Education - [place] 07/10/2022 Problem Noted Date Diagnosed Date [facility] - [facility] 07/10/2022 Education - [place] 07/10/2022 Problem Noted Date Diagnosed Date [facility] - [facility] 07/10/2022 Education - [place] 07/10/2022 Problem Noted Date Diagnosed Date [facility] - [facility] 07/10/2022 Education - [place] 07/10/2022 Problem Noted Date Diagnosed Date [facility] - [facility] 07/10/2022 Education - [place] 07/10/2022 Problem Noted Date Diagnosed Date [facility] - [facility] 07/10/2022 Education - [place] 07/10/2022 Problem Noted Date Diagnosed Date [facility] - [facility] 07/10/2022 Education - [place] 07/10/2022 Problem Noted Date Diagnosed Date [facility] - [facility] 07/10/2022 Education - [place] 07/10/2022 Problem Noted Date Diagnosed Date [facility] - [facility] 07/10/2022 Education - [place] 07/10/2022 Problem Noted Date Diagnosed Date [facility] - [facility] 07/10/2022 Education - [place] 07/10/2022 Problem Noted Date Diagnosed Date [facility] - [facility] 07/10/2022 Education - [place] 07/10/2022 Problem Noted Date Diagnosed Date [facility] - [facility] 07/10/2022 Education - [place] 07/10/2022 Problem Noted Date Diagnosed Date [facility] - [facility] 07/10/2022 Education - [place] 07/10/2022 Problem Noted Date Diagnosed Date [facility] - [facility] 07/10/2022 Education - [place] 07/10/2022 Problem Noted Date Diagnosed Date [facility] - [facility] 07/10/2022 [place] - [place] 07/10/2022 Additional Source Comments INFORMATION SOURCE (unrecogn ized section and content) DATE CREATED AUTHOR AUTHOR'S ORGANIZ ATION 08/23/2017 [facility] DATE CREATED AUTHOR AUTHOR'S ORGANIZ ATION 09/12/2017 [facility] DATE CREATED AUTHOR AUTHOR'S ORGANIZ ATION 12/02/2018 [facility] DATE CREATED AUTHOR AUTHOR'S ORGANIZ ATION 06/18/2021 [facility] DATE CREATED AUTHOR AUTHOR'S ORGANIZ ATION 06/26/2022 [facility] DATE CREATED AUTHOR AUTHOR'S ORGANIZ ATION 10/07/2022 [facility] DATE CREATED AUTHOR AUTHOR'S ORGANIZ ATION 12/24/2022 [facility] DATE CREATED AUTHOR AUTHOR'S ORGANIZ ATION 01/03/2023 [facility] Source Comments (unrecognize d section and content) In the event this informatio n is protected by the Federal Confidentiality of Alcohol and Drug Abuse Patient Records regulations: The Federal rules restrict any use of the information to criminally investigate or prosecute any alcohol or drug abuse patient.[facility] the event this information is protected by the Federal Confidentiality of Alcohol and Drug Abuse Patient Records regulations: The Federal rules restrict any use of the information to criminally investigate or prosecute any alcohol or drug abuse patient.[facility] HospitalIn the event this information is protected by the Federal Confidentiality of Alcohol and Drug Abuse Patient Records regulations: The Federal rules restrict any use of the information to criminally investigate or prosecute any alcohol or drug abuse patient.[facility] HospitalIn the event this information is protected by the Federal Confidentiality of Alcohol and Drug Abuse Patient Records regulations: The Federal rules restrict any use of the information to criminally investigate or prosecute any alcohol or drug abuse patient.[facility] HospitalIn the event this information is protected by the Federal Confidentiality of Alcohol and Drug Abuse Patient Records regulations: The Federal rules restrict any use of the information to criminally investigate or prosecute any alcohol or drug abuse patient.[facility] HospitalIn the event this information is protected by the Federal Confidentiality of Alcohol and Drug Abuse Patient Records regulations: The Federal rules restrict any use of the information to criminally investigate or prosecute any alcohol or drug abuse patient.[facility] HospitalIn the event this information is protected by the Federal Confidentiality of Alcohol and Drug Abuse Patient Records regulations: The Federal rules restrict any use of the information to criminally investigate or prosecute any alcohol or drug abuse patient.[facility] HospitalIn the event this information is protected by the Federal Confidentiality of Alcohol and Drug Abuse Patient Records regulations: The Federal rules restrict any use of the information to criminally investigate or prosecute any alcohol or drug abuse patient.[facility] HospitalIn the event this information is protected by the Federal Confidentiality of Alcohol and Drug Abuse Patient Records regulations: The Federal rules restrict any use of the information to criminally investigate or prosecute any alcohol or drug abuse patient.[facility] HospitalIn the event this information is protected by the Federal Confidentiality of Alcohol and Drug Abuse Patient Records regulations: The Federal rules restrict any use of the information to criminally investigate or prosecute any alcohol or drug abuse patient.[facility] HospitalIn the event this information is protected by the Federal Confidentiality of Alcohol and Drug Abuse Patient Records regulations: The Federal rules restrict any use of the information to criminally investigate or prosecute any alcohol or drug abuse patient.[facility] HospitalIn the event this information is protected by the Federal Confidentiality of Alcohol and Drug Abuse Patient Records regulations: The Federal rules restrict any use of the information to criminally investigate or prosecute any alcohol or drug abuse patient.[facility] HospitalIn the event this information is protected by the Federal Confidentiality of Alcohol and Drug Abuse Patient Records regulations: The Federal rules restrict any use of the information to criminally investigate or prosecute any alcohol or drug abuse patient.[facility] HospitalIn the event this information is protected by the Federal Confidentiality of Alcohol and Drug Abuse Patient Records regulations: The Federal rules restrict any use of the information to criminally investigate or prosecute any alcohol or drug abuse patient.[facility] HospitalIn the event this information is protected by the Federal Confidentiality of Alcohol and Drug Abuse Patient Records regulations: The Federal rules restrict any use of the information to criminally investigate or prosecute any alcohol or drug abuse patient.[facility] HospitalIn the event this information is protected by the Federal Confidentiality of Alcohol and Drug Abuse Patient Records regulations: The Federal rules restrict any use of the information to criminally investigate or prosecute any alcohol or drug abuse patient.[facility] HospitalIn the event this information is protected by the Federal Confidentiality of Alcohol and Drug Abuse Patient Records regulations: The Federal rules restrict any use of the information to criminally investigate or prosecute any alcohol or drug abuse patient.[facility] HospitalIn the event this information is protected by the Federal Confidentiality of Alcohol and Drug Abuse Patient Records regulations: The Federal rules restrict any use of the information to criminally investigate or prosecute any alcohol or drug abuse patient.[facility] HospitalIn the event this information is protected by the Federal Confidentiality of Alcohol and Drug Abuse Patient Records regulations: The Federal rules restrict any use of the information to criminally investigate or prosecute any alcohol or drug abuse patient.[facility] HospitalIn the event this information is protected by the Federal Confidentiality of Alcohol and Drug Abuse Patient Records regulations: The Federal rules restrict any use of the information to criminally investigate or prosecute any alcohol or drug abuse patient.[facility] HospitalIn the event this information is protected by the Federal Confidentiality of Alcohol and Drug Abuse Patient Records regulations: The Federal rules restrict any use of the information to criminally investigate or prosecute any alcohol or drug abuse patient.[facility] HospitalIn the event this information is protected by the Federal Confidentiality of Alcohol and Drug Abuse Patient Records regulations: The Federal rules restrict any use of the information to criminally investigate or prosecute any alcohol or drug abuse patient.[facility] HospitalIn the event this information is protected by the Federal Confidentiality of Alcohol and Drug Abuse Patient Records regulations: The Federal rules restrict any use of the information to criminally investigate or prosecute any alcohol or drug abuse patient.[facility] HospitalIn the event this information is protected by the Federal Confidentiality of Alcohol and Drug Abuse Patient Records regulations: The Federal rules restrict any use of the information to criminally investigate or prosecute any alcohol or drug abuse patient.[facility] HospitalIn the event this information is protected by the Federal Confidentiality of Alcohol and Drug Abuse Patient Records regulations: The Federal rules restrict any use of the information to criminally investigate or prosecute any alcohol or drug abuse patient.[facility] HospitalIn the event this information is protected by the Federal Confidentiality of Alcohol and Drug Abuse Patient Records regulations: The Federal rules restrict any use of the information to criminally investigate or prosecute any alcohol or drug abuse patient.[facility] HospitalIn the event this information is protected by the Federal Confidentiality of Alcohol and Drug Abuse Patient Records regulations: The Federal rules restrict any use of the information to criminally investigate or prosecute any alcohol or drug abuse patient.[facility] HospitalIn the event this information is protected by the Federal Confidentiality of Alcohol and Drug Abuse Patient Records regulations: The Federal rules restrict any use of the information to criminally investigate or prosecute any alcohol or drug abuse patient.[facility] HospitalIn the event this information is protected by the Federal Confidentiality of Alcohol and Drug Abuse Patient Records regulations: The Federal rules restrict any use of the information to criminally investigate or prosecute any alcohol or drug abuse patient.[facility] HospitalIn the event this information is protected by the Federal Confidentiality of Alcohol and Drug Abuse Patient Records regulations: The Federal rules restrict any use of the information to criminally investigate or prosecute any alcohol or drug abuse patient.[facility] HospitalIn the event this information is protected by the Federal Confidentiality of Alcohol and Drug Abuse Patient Records regulations: The Federal rules restrict any use of the information to criminally investigate or prosecute any alcohol or drug abuse patient.[facility] HospitalIn the event this information is protected by the Federal Confidentiality of Alcohol and Drug Abuse Patient Records regulations: The Federal rules restrict any use of the information to criminally investigate or prosecute any alcohol or drug abuse patient.[facility] HospitalIn the event this information is protected by the Federal Confidentiality of Alcohol and Drug Abuse Patient Records regulations: The Federal rules restrict any use of the information to criminally investigate or prosecute any alcohol or drug abuse patient.[facility] HospitalIn the event this information is protected by the Federal Confidentiality of Alcohol and Drug Abuse Patient Records regulations: The Federal rules restrict any use of the information to criminally investigate or prosecute any alcohol or drug abuse patient.[facility] HospitalIn the event this information is protected by the Federal Confidentiality of Alcohol and Drug Abuse Patient Records regulations: The Federal rules restrict any use of the information to criminally investigate or prosecute any alcohol or drug abuse patient.[facility] HospitalIn the event this information is protected by the Federal Confidentiality of Alcohol and Drug Abuse Patient Records regulations: The Federal rules restrict any use of the information to criminally investigate or prosecute any alcohol or drug abuse patient.[facility] HospitalIn the event this information is protected by the Federal Confidentiality of Alcohol and Drug Abuse Patient Records regulations: The Federal rules restrict any use of the information to criminally investigate or prosecute any alcohol or drug abuse patient.[facility] HospitalIn the event this information is protected by the Federal Confidentiality of Alcohol and Drug Abuse Patient Records regulations: The Federal rules restrict any use of the information to criminally investigate or prosecute any alcohol or drug abuse patient.[facility] HospitalIn the event this information is protected by the Federal Confidentiality of Alcohol and Drug Abuse Patient Records regulations: The Federal rules restrict any use of the information to criminally investigate or prosecute any alcohol or drug abuse patient.[facility] HospitalIn the event this information is protected by the Federal Confidentiality of Alcohol and Drug Abuse Patient Records regulations: The Federal rules restrict any use of the information to criminally investigate or prosecute any alcohol or drug abuse patient.[facility] HospitalIn the event this information is protected by the Federal Confidentiality of Alcohol and Drug Abuse Patient Records regulations: The Federal rules restrict any use of the information to criminally investigate or prosecute any alcohol or drug abuse patient.[facility] HospitalIn the event this information is protected by the Federal Confidentiality of Alcohol and Drug Abuse Patient Records regulations: The Federal rules restrict any use of the information to criminally investigate or prosecute any alcohol or drug abuse patient.[facility] HospitalIn the event this information is protected by the Federal Confidentiality of Alcohol and Drug Abuse Patient Records regulations: The Federal rules restrict any use of the information to criminally investigate or prosecute any alcohol or drug abuse patient.[facility] HospitalIn the event this information is protected by the Federal Confidentiality of Alcohol and Drug Abuse Patient Records regulations: The Federal rules restrict any use of the information to criminally investigate or prosecute any alcohol or drug abuse patient.[facility] HospitalIn the event this information is protected by the Federal Confidentiality of Alcohol and Drug Abuse Patient Records regulations: The Federal rules restrict any use of the information to criminally investigate or prosecute any alcohol or drug abuse patient.[facility] HospitalIn the event this information is protected by the Federal Confidentiality of Alcohol and Drug Abuse Patient Records regulations: The Federal rules restrict any use of the information to criminally investigate or prosecute any alcohol or drug abuse patient.[facility] HospitalIn the event this information is protected by the Federal Confidentiality of Alcohol and Drug Abuse Patient Records regulations: The Federal rules restrict any use of the information to criminally investigate or prosecute any alcohol or drug abuse patient.[facility] HospitalIn the event this information is protected by the Federal Confidentiality of Alcohol and Drug Abuse Patient Records regulations: The Federal rules restrict any use of the information to criminally investigate or prosecute any alcohol or drug abuse patient.[facility] HospitalIn the event this information is protected by the Federal Confidentiality of Alcohol and Drug Abuse Patient Records regulations: The Federal rules restrict any use of the information to criminally investigate or prosecute any alcohol or drug abuse patient.[facility] HospitalIn the event this information is protected by the Federal Confidentiality of Alcohol and Drug Abuse Patient Records regulations: The Federal rules restrict any use of the information to criminally investigate or prosecute any alcohol or drug abuse patient.[facility] HospitalIn the event this information is protected by the Federal Confidentiality of Alcohol and Drug Abuse Patient Records regulations: The Federal rules restrict any use of the information to criminally investigate or prosecute any alcohol or drug abuse patient.[facility] HospitalIn the event this information is protected by the Federal Confidentiality of Alcohol and Drug Abuse Patient Records regulations: The Federal rules restrict any use of the information to criminally investigate or prosecute any alcohol or drug abuse patient.[facility] HospitalIn the event this information is protected by the Federal Confidentiality of Alcohol and Drug Abuse Patient Records regulations: The Federal rules restrict any use of the information to criminally investigate or prosecute any alcohol or drug abuse patient.[facility] HospitalIn the event this information is protected by the Federal Confidentiality of Alcohol and Drug Abuse Patient Records regulations: The Federal rules restrict any use of the information to criminally investigate or prosecute any alcohol or drug abuse patient.[facility] HospitalIn the event this information is protected by the Federal Confidentiality of Alcohol and Drug Abuse Patient Records regulations: The Federal rules restrict any use of the information to criminally investigate or prosecute any alcohol or drug abuse patient.[facility] HospitalIn the event this information is protected by the Federal Confidentiality of Alcohol and Drug Abuse Patient Records regulations: The Federal rules restrict any use of the information to criminally investigate or prosecute any alcohol or drug abuse patient.[facility] HospitalIn the event this information is protected by the Federal Confidentiality of Alcohol and Drug Abuse Patient Records regulations: The Federal rules restrict any use of the information to criminally investigate or prosecute any alcohol or drug abuse patient.[facility] HospitalIn the event this information is protected by the Federal Confidentiality of Alcohol and Drug Abuse Patient Records regulations: The Federal rules restrict any use of the information to criminally investigate or prosecute any alcohol or drug abuse patient.[facility] HospitalIn the event this information is protected by the Federal Confidentiality of Alcohol and Drug Abuse Patient Records regulations: The Federal rules restrict any use of the information to criminally investigate or prosecute any alcohol or drug abuse patient.[facility] HospitalIn the event this information is protected by the Federal Confidentiality of Alcohol and Drug Abuse Patient Records regulations: The Federal rules restrict any use of the information to criminally investigate or prosecute any alcohol or drug abuse patient.[facility] HospitalIn the event this information is protected by the Federal Confidentiality of Alcohol and Drug Abuse Patient Records regulations: The Federal rules restrict any use of the information to criminally investigate or prosecute any alcohol or drug abuse patient.[facility] HospitalIn the event this information is protected by the Federal Confidentiality of Alcohol and Drug Abuse Patient Records regulations: The Federal rules restrict any use of the information to criminally investigate or prosecute any alcohol or drug abuse patient.[facility] HospitalIn the event this information is protected by the Federal Confidentiality of Alcohol and Drug Abuse Patient Records regulations: The Federal rules restrict any use of the information to criminally investigate or prosecute any alcohol or drug abuse patient.[facility] HospitalIn the event this information is protected by the Federal Confidentiality of Alcohol and Drug Abuse Patient Records regulations: The Federal rules restrict any use of the information to criminally investigate or prosecute any alcohol or drug abuse patient.[facility] HospitalIn the event this information is protected by the Federal Confidentiality of Alcohol and Drug Abuse Patient Records regulations: The Federal rules restrict any use of the information to criminally investigate or prosecute any alcohol or drug abuse patient.[facility] HospitalIn the event this information is protected by the Federal Confidentiality of Alcohol and Drug Abuse Patient Records regulations: The Federal rules restrict any use of the information to criminally investigate or prosecute any alcohol or drug abuse patient.[facility] HospitalIn the event this information is protected by the Federal Confidentiality of Alcohol and Drug Abuse Patient Records regulations: The Federal rules restrict any use of the information to criminally investigate or prosecute any alcohol or drug abuse patient.[facility] HospitalIn the event this information is protected by the Federal Confidentiality of Alcohol and Drug Abuse Patient Records regulations: The Federal rules restrict any use of the information to criminally investigate or prosecute any alcohol or drug abuse patient.[facility] Reason for Visit (unrecogniz ed section and content) Specialty Diagnoses / Procedures Referred By Contac t Referred To Contact [facility] Diagnoses Monochorionic diamniotic twin in second trimester 23 weeks gestation of History of delivery, currently Supervision of other high risk pregnancies, second trimester Procedures OBSTETRIC ULTRASOUND WHI US PREG UTERUS AFTER 1ST TRIMEST GESTATION Chapincito Zavala MD [address] [place] [address] [facility] [address] [place] [address] Referral ID Status Reason Start Date Expiration Date V isits Requested Visits Authorized [id number] Closed Auto-Generate d Referral 10/14/2022 10/14/2023 12 1 Specialty Diagnoses / Procedures Referred By Contac t Referred To Contact Diagnoses Threatened labor, third trimester Procedures NA [address] [place] [address] Referral ID Status Reason Start Date Expiration Date Visits Re quested Visits Authorized [id number] 1 1 Specialty Diagnoses / Procedures Referred By Contac t Referred To Contact [facility] Diagnoses Encounter for follow-up ultrasound of anatomy Procedures OBSTETRIC ULTRASOUND WHI US PREG UTERUS AFTER 1ST TRIMEST GESTATION Yuliana Carlos MD [address] [facility] [address] [address] Referral ID Status Reason Start Date Expiration Date V isits Requested Visits Authorized [id number] Closed Auto-Generate d Referral 08/18/2021 08/18/2022 1 1 Reason Onset Date Comments Care 08/21/2021 Specialty Diagnoses / Procedures Referred By Contac t Referred To Contact [employer] Diagnoses OB appointment Procedures ob apppointment and ultrasound Yuliana Carlos MD [address] [place] [address] [employer] [address] [place] [address] Referral ID Status Reason Start Date Expiration Date V isits Requested Visits Authorized [id number] Closed Patient Cleared - Qualified 100% FAS 07/24/2021 10/22/2021 99 99 Reason Onset Date Comments Care 07/24/2021 Referral ID Status Reason Start Date Expiration Date Visits Requested Visits Authorized [id number] Authorized Patient Cleared - Qualified 100% FAS 07/24/2021 10/22/2021 99 99 Reason Onset Date Comments Care 06/05/2021 Specialty Diagnoses / Procedures Referred By Contac t Referred To Contact [facility] Diagnoses Supervision of other normal , antepartum Procedures NUCHAL TRANSLUCENCY WHI US NUCHAL TRANSLUCENCY 1ST GESTATION Kimani Núñez MD [address] [place] [place] [address] [address] Referral ID Status Reason Start Date Expiration Date V isits Requested Visits Authorized [id number] Closed Auto-Generate d Referral 05/01/2021 05/01/2022 1 1 Reason Comments OB Fainting Episode Reason Onset Date Comments Care 07/03/2021 Reason Comments Orders Reason Onset Date Comments Care 09/18/2021 Reason Comments Question (OB Question) Reason Onset Date Comments Care 10/02/2021 Specialty Diagnoses / Procedures Referred By Contac t Referred To Contact [facility] Diagnoses 29 weeks gestation of Procedures OBSTETRIC ULTRASOUND WHI US PREG UTERUS AFTER 1ST TRIMEST GESTATION Pam Yarbrough APRN.CNM [address] [place] [address] [address] Referral ID Status Reason Start Date Expiration Date V isits Requested Visits Authorized [id number] Closed Auto-Generate d Referral 10/02/2021 10/02/2022 1 1 Reason Onset Date Comments Care 10/16/2021 Specialty Diagnoses / Procedures Referred By Contac t Referred To Contact [facility] Diagnoses 31 weeks gestation of Poor growth affecting management of mother in first trimester, single or unspecified fetus Procedures OBSTETRIC ULTRASOUND WHI US PREG UTERUS AFTER 1ST TRIMEST GESTATION Kimani Núñez MD [address] [place] [address] [address] Referral ID Status Reason Start Date Expiration Date V isits Requested Visits Authorized [id number] Closed Auto-Generate d Referral 10/16/2021 10/16/2022 1 1 Reason Onset Date Comments Care 10/30/2021 Specialty Diagnoses / Procedures Referred By Contac t Referred To Contact [facility] Diagnoses Uterine size-date discrepancy, third trimester Procedures OBSTETRIC ULTRASOUND WHI US PREG UTERUS AFTER 1ST TRIMEST GESTATION Yuliana Carlos MD [address] [facility] [place] [place] [address] [address] Referral ID Status Reason Start Date Expiration Date V isits Requested Visits Authorized [id number] Closed Auto-Generate d Referral 09/18/2021 09/18/2022 1 1 Reason Comments OB-Headache Reason Onset Date Comments Care 11/13/2021 Specialty Diagnoses / Procedures Referred By Contac t Referred To Contact [facility] Diagnoses Poor growth affecting management of mother in third trimester, single or unspecified fetus Procedures BIOPHYSICAL PROFILE US WHI BIOPHYSICAL PROFILE NON-STRESS TESTING Pam Yarbrough APRN.CNM [address] [place] [address] [address] Referral ID Status Reason Start Date Expiration Date V isits Requested Visits Authorized [id number] Closed Auto-Generate d Referral 11/05/2021 11/05/2022 5 [...] Referred By Contac t Referred To Contact [facility] Diagnoses 13 weeks gestation of Monochorionic diamniotic twin , antepartum Procedures OBSTETRIC ULTRASOUND WHI US PREG UTERUS AFTER 1ST TRIMEST GESTATION Kimani Núñez MD [address] [place] [address] [address] Referral ID Status Reason Start Date Expiration Date V isits Requested Visits Authorized [id number] Closed Auto-Generate d Referral 08/04/2022 08/04/2023 1 1 Reason Comments Trauma Pt reported 17.6 wee k twin gestation scabies exposure. Specialty Diagnoses / Procedures Referred By Contac t Referred To Contact [facility] Diagnoses Monochorionic diamniotic twin , antepartum Procedures OBSTETRIC ULTRASOUND WHI US PREG UTERUS AFTER 1ST TRIMEST GESTATION Kimani Núñez MD [address] [place] [address] [address] Referral ID Status Reason Start Date Expiration Date V isits Requested Visits Authorized [id number] Closed Auto-Generate d Referral 08/27/2022 08/27/2023 10 [...] Care Teams (unrecognized sec tion and content) Wheel Grinder Relationship Specialty Start Date End Date BoydMeir, RESTAURANT COOK.HEAT TREAT INSPECTOR [address] [place] [address] PCP - General Family Practice 04/26/19 Wheel Grinder Relationship Specialty Start Date End Date BoydMeir, RESTAURANT COOK[employer]HEAT TREAT INSPECTOR [address] [place] [address] PCP - General Family Practice 04/26/19 Wheel Grinder Relationship Specialty Start Date End Date BoydMeir, RESTAURANT COOK.HEAT TREAT INSPECTOR [address] [place] [address] PCP - General Family Practice 04/26/19 Wheel Grinder Relationship Specialty Start Date End Date BoydMeir, RESTAURANT COOK.HEAT TREAT INSPECTOR [address] [place] [address] PCP - General Family Practice 04/26/19 Wheel Grinder Relationship Specialty Start Date End Date BoydMeir, RESTAURANT COOK.HEAT TREAT INSPECTOR [address] [place] [address] PCP - General Family Practice 04/26/19 Wheel Grinder Relationship Specialty Start Date End Date BoydMeir, RESTAURANT COOK.HEAT TREAT INSPECTOR [address] [place] [address] PCP - General Family Practice 04/26/19 Wheel Grinder Relationship Specialty Start Date End Date BoydMeir, RESTAURANT COOK.HEAT TREAT INSPECTOR [address] [place] [address] PCP - General Family Practice 04/26/19 Wheel Grinder Relationship Specialty Start Date End Date BoydMeir, RESTAURANT COOK.HEAT TREAT INSPECTOR [address] [place] [address] PCP - General Family Practice 04/26/19 Wheel Grinder Relationship Specialty Start Date End Date BoydMeir, RESTAURANT COOK.HEAT TREAT INSPECTOR [address] [place] [address] PCP - General Family Practice 04/26/19 Wheel Grinder Relationship Specialty Start Date End Date BoydMeir, RESTAURANT COOK.HEAT TREAT INSPECTOR [address] [place] [address] PCP - General Family Practice 04/26/19 Wheel Grinder Relationship Specialty Start Date End Date BoydMeir, RESTAURANT COOK.HEAT TREAT INSPECTOR [address] [place] [address] PCP - General Family Practice 04/26/19 Wheel Grinder Relationship Specialty Start Date End Date BoydMeir, RESTAURANT COOK.HEAT TREAT INSPECTOR [address] [place] [address] PCP - General Family Practice 04/26/19 Wheel Grinder Relationship Specialty Start Date End Date BoydMeir, RESTAURANT COOK.HEAT TREAT INSPECTOR [address] [place] [address] PCP - General Family Practice 04/26/19 Wheel Grinder Relationship Specialty Start Date End Date BoydMeir, RESTAURANT COOK.HEAT TREAT INSPECTOR [address] [place] [address] PCP - General Family Medicine 04/26/19 Wheel Grinder Relationship Specialty Start Date End Date BoydMeir, RESTAURANT COOK.HEAT TREAT INSPECTOR [address] [place] [address] PCP - General Family Medicine 04/26/19 Wheel Grinder Relationship Specialty Start Date End Date BoydMeir, RESTAURANT COOK.HEAT TREAT INSPECTOR [address] [place] [address] PCP - General Family Medicine 04/26/19 Wheel Grinder Relationship Specialty Start Date End Date BoydMeir, RESTAURANT COOK.HEAT TREAT INSPECTOR [address] [place] [address] PCP - General Family Medicine 04/26/19 Wheel Grinder Relationship Specialty Start Date End Date BoydMeir, RESTAURANT COOK.HEAT TREAT INSPECTOR [address] [place] [address] PCP - General Family Medicine 04/26/19 Wheel Grinder Relationship Specialty Start Date End Date BoydMeir, RESTAURANT COOK.HEAT TREAT INSPECTOR [address] [place] [address] PCP - General Family Medicine 04/26/19 Wheel Grinder Relationship Specialty Start Date End Date BoydMeir, RESTAURANT COOK.HEAT TREAT INSPECTOR [address] [place] [address] PCP - General Family Medicine 04/26/19 Wheel Grinder Relationship Specialty Start Date End Date BoydMeir, RESTAURANT COOK.HEAT TREAT INSPECTOR [address] [place] [address] PCP - General Family Medicine 04/26/19 Wheel Grinder Relationship Specialty Start Date End Date BoydMeir, RESTAURANT COOK.HEAT TREAT INSPECTOR [address] [place] [address] PCP - General Family Medicine 04/26/19 Wheel Grinder Relationship Specialty Start Date End Date BoydMeir, RESTAURANT COOK.HEAT TREAT INSPECTOR [address] [place] [address] PCP - General Family Medicine 04/26/19 Wheel Grinder Relationship Specialty Start Date End Date , Meir, RESTAURANT COOK.HEAT TREAT INSPECTOR [address] [facility] [place] [address] PCP - General Family Medicine 04/26/19 Wheel Grinder Relationship Specialty Start Date End Date Boyd, Meir, RESTAURANT COOK.HEAT TREAT INSPECTOR [address] [facility] [place] [address] PCP - General Family Medicine 04/26/19 Wheel Grinder Relationship Specialty Start Date End Date Boyd, Meir, RESTAURANT COOK.HEAT TREAT INSPECTOR [address] [facility] [place] [address] PCP - General Family Medicine 04/26/19 Wheel Grinder Relationship Specialty Start Date End Date , Meir, RESTAURANT COOK.HEAT TREAT INSPECTOR [address] [facility] [place] [address] PCP - General Family Medicine 04/26/19 Wheel Grinder Relationship Specialty Start Date End Date , Meir, RESTAURANT COOK.HEAT TREAT INSPECTOR [address] [facility] [place] [address] PCP - General Family Medicine 04/26/19 Wheel Grinder Relationship Specialty Start Date End Date , Meir, RESTAURANT COOK.HEAT TREAT INSPECTOR [address] [facility] [place] [address] PCP - General Family Medicine 04/26/19 Wheel Grinder Relationship Specialty Start Date End Date , Meir, RESTAURANT COOK.HEAT TREAT INSPECTOR [address] [facility] [place] [address] PCP - General Family Medicine 04/26/19 Wheel Grinder Relationship Specialty Start Date End Date Boyd, Meir, RESTAURANT COOK.HEAT TREAT INSPECTOR [address] [facility] [place] [address] PCP - General Family Medicine 04/26/19 Wheel Grinder Relationship Specialty Start Date End Date [facility], RESTAURANT COOK.HEAT TREAT INSPECTOR [address] [facility] [place] [address] PCP - General Family Medicine 04/26/19 Wheel Grinder Relationship Specialty Start Date End Date [facility], RESTAURANT COOK.HEAT TREAT INSPECTOR [address] [facility] [place] [address] PCP - General Family Medicine 04/26/19 Wheel Grinder Relationship Specialty Start Date End Date [facility], RESTAURANT COOK.HEAT TREAT INSPECTOR [address] [facility] [place] [address] PCP - General Family Medicine 04/26/19 Wheel Grinder Relationship Specialty Start Date End Date [facility], RESTAURANT COOK.HEAT TREAT INSPECTOR [address] [facility] [place] [address] PCP - General Family Medicine 04/26/19 Wheel Grinder Relationship Specialty Start Date End Date [facility], RESTAURANT COOK.HEAT TREAT INSPECTOR [address] [facility] [place] [address] PCP - General Family Medicine 04/26/19 Wheel Grinder Relationship Specialty Start Date End Date [facility], RESTAURANT COOK.HEAT TREAT INSPECTOR [address] [place] [address] PCP - General Family Medicine 04/26/19 Wheel Grinder Relationship Specialty Start Date End Date [facility], RESTAURANT COOK.HEAT TREAT INSPECTOR [address] [place] [address] PCP - General Family Medicine 04/26/19 Wheel Grinder Relationship Specialty Start Date End Date , Meir, RESTAURANT COOK.HEAT TREAT INSPECTOR [address] [facility] [place] [address] PCP - General Family Medicine 04/26/19 Wheel Grinder Relationship Specialty Start Date End Date , RESTAURANT COOK.HEAT TREAT INSPECTOR [address] [facility] [place] [address] PCP - General Family Medicine 04/26/19 Wheel Grinder Relationship Specialty Start Date End Date Boyd, Meir, RESTAURANT COOK.HEAT TREAT INSPECTOR [address] [facility] [place] [address] PCP - General Family Medicine 04/26/19 Wheel Grinder Relationship Specialty Start Date End Date , RESTAURANT COOK.HEAT TREAT INSPECTOR [address] [facility] [place] [address] PCP - General Family Medicine 04/26/19 Wheel Grinder Relationship Specialty Start Date End Date , RESTAURANT COOK.HEAT TREAT INSPECTOR [address] [facility] [place] [address] PCP - General Family Medicine 04/26/19 Wheel Grinder Relationship Specialty Start Date End Date , RESTAURANT COOK.HEAT TREAT INSPECTOR [address] [facility] [place] [address] PCP - General Family Medicine 04/26/19 Wheel Grinder Relationship Specialty Start Date End Date , Meir, RESTAURANT COOK.HEAT TREAT INSPECTOR [address] [facility] [place] [address] PCP - General Family Medicine 04/26/19 Wheel Grinder Relationship Specialty Start Date End Date , Meir, RESTAURANT COOK.HEAT TREAT INSPECTOR [address] [facility] [place] [address] PCP - General Family Medicine 04/26/19 Wheel Grinder Relationship Specialty Start Date End Date Boyd Meir, RESTAURANT COOK.HEAT TREAT INSPECTOR [address] [facility] [place], [place] [address] PCP - General Family Medicine 04/26/19 Wheel Grinder Relationship Specialty Start Date End Date BoydMeir, RESTAURANT COOK.HEAT TREAT INSPECTOR [address] [facility] [place], [place] [address] PCP - General Family Medicine 04/26/19 FOR [...] BE BASED ON THE PRIMARY CLINICAL RECORDS. [employer] [facility]. provides no warranty or guarantee of the accuracy or completeness of information in this document.
--- NOTE | 2023-03-25 22:53 | EX.ED.DYSGE1 ---
HPI History of Present Illness Chief Complaint: Fever Informant: patient Narrative Narrative: 22-year-old female presenting to the emergency room for the evaluation of fever. Patient states that symptoms began rather abruptly today. They include some swollen tender lymph nodes in the neck headache vomiting and fever. She notes no cough or diarrhea. No rash. No significant sore throat. She is a mom to twins that are 3 months tomorrow. She is not breast-feeding. She states she was recently treated for strep throat. She states she feels dehydrated notes that her urine is very dark and is small amounts. She states there was some discomfort with urination but wonders if that was due to it being concentrated. [facility] Medical History ADHD Family history of bipolar disorder Family history of congenital cardiac septal defect Family history of drug abuse GBS screening not performed History of pre-term labor depression spontaneous labor with delivery Seizures Sterilization Subchorionic hematoma in first trimester (spontaneous vaginal delivery) Syncope Home Medications docosahexaenoic acid 200 mg capsule ( DHA) 200 mg PO DAILY 11/16/22 [History Last Taken 11/15/22 18:00] famotidine 20 mg tablet 20 mg PO Q12H heartburn 11/16/22 [History Last Taken 11/15/22 18:00] azithromycin 250 mg tablet (Zithromax Z-Kurt) 250 mg PO DAILY 4 days #4 tabs 02/28/23 [Rx Last Taken Unknown] Allergy/AdvReac Type Severity Reaction Status Date / Time Penicillins Allergy Rash Verified 03/25/23 22:29 sertraline [From Zoloft] AdvReac Other Verified 03/25/23 22:29 Family History Other Family history of congenital heart defect Patient's father is Social History household members: significant other and children Smoking Status: Never smoker substance use type: does not use ROS ROS ED Constitutional Constitutional ED: Reports chills, fever(s) and sweats; Denies weight loss Eyes Eyes: Reports other Details: No photophobia ; Denies blurry vision, change in vision or diplopia ENT ENT ED: Reports other Details: Tender swollen lymph nodes of neck ; Denies ear pain, rhinorrhea or sore throat Cardiovascular Cardiovascular: Denies chest pain, orthopnea, palpitations or racing heartbeat Respiratory/Chest Respiratory/Chest: Denies cough, dyspnea or orthopnea Gastrointestinal Gastrointestinal: Reports nausea and vomiting; Denies abdominal pain or diarrhea Genitourinary Genitourinary ED: Reports other Details: Decreased urination ; Denies dysuria, hematuria or urinary frequency Musculoskeletal Musculoskeletal: Reports myalgias; Denies arthralgias or back pain Integumentary Reports Abrasions; Denies abscess or rash Neurologic Neurologic: Reports headache(s); Denies paresthesias or weakness Psychiatric Psychiatric: Denies anxiety, depression, suicidal ideation or suicidal thoughts Endocrine Endocrinology: Denies polydipsia, polyphagia or polyuria Allergic/Immunologic Allergic/Immunologic ED: Denies mouth swelling, tongue swelling or urticaria EXAM Physical Exam Const Vital Signs: 03/25/23 22:26 03/26/23 01:32 03/26/23 01:32 Temperature 102.7 F H 97.3 F L Temperature Source Oral Temporal Pulse Rate 133 H 80 Respiratory Rate 18 16 Respiratory Pattern Normal Blood Pressure 106/68 91/50 L Blood Pressure Mean 80 63 Pulse Ox 97 96 Oxygen Delivery Method Room Air Room Air Positive well nourished and well developed General Appearance ED: well developed HEENT Reports normocephalic, head/scalp atraumatic and moist mucous membranes HEENT Narrative: No apparent photophobia. Eyes PERRL and EOMs intact bilaterally Neck supple and no JVD Neck Narrative: I do not appreciate any meningeal signs. She sits up easily and turns her head and flexes and extend without difficulty. There is some palpable mobile tender less than half centimeter posterior lymph nodes. There are a couple of anterior lymph nodes noted these are also less than 1/2 cm mobile and slightly tender Resp normal respiratory effort and clear to auscultation bilaterally Cardio regular rate, regular rhythm and no murmurs Rate: tachycardic GI normal to inspection, nondistended, normoactive bowel sounds and non-tender Palpation: soft Back/Spine no CVA tenderness and normal ROM Extremity normal to inspection General Extremety ED: Negative for edema General Extremity: Negative for edema Neuro oriented x3 and CN's II-XII intact bilaterally Sensorium / Orientation: alert Motor Exam: strength 5/5 throughout Psych mental status grossly normal Mood & Affect: Negative for depressed or tearful Skin no rashes or lesions noted and no wounds MDM MDM MDM Narrative Medical decision making narrative: White count 9.2 80.3 neutrophils 9 lymphocytes. Total bilirubin 2 direct bilirubin 0.39. Patient has had elevated bilirubin on prior labs. Urinalysis with no overt infection. I informed the patient that a monoscreen would be unlikely to be positive as she is only on the first day of symptoms. As per my norm we participated in shared decision making regarding healthcare and a Monospot was checked which was also negative. COVID influenza and RSV are also negative and as discussed with patient accuracy can be dependent on viral shedding. My independent interpretation of the chest x-ray is no acute process. Patient received IV fluids Tylenol and Toradol. Heart rate is down. Nursing records a blood pressure of 91/50. I took it myself and I got 101/64. Patient is feeling significantly better. We spoke regarding meningitis and we will defer LP based on shared decision making. Other than fever and generalized headache she does not really have any other signs that I would feel strongly would require lumbar puncture. She notes understanding of this. Patient will continue to treat symptomatically return if worsening or concerns History & Record Review Discussion w/independent historian: Patient Lab Data Attestation: I reviewed the patient's lab results. Labs: Laboratory Results - last 24 hr 03/25/23 03/25/23 23:05 23:13 WBC 9.2 RBC 4.82 Hgb 13.0 Hct 40.5 MCV 84.0 MCH 27.0 MCHC 32.1 RDW Std Deviation 52.0 H RDW Coeff of Pedro 16.8 H Plt Count 178 MPV 10.4 Immature Gran % (Auto) 0.300 Neut % (Auto) 80.3 H Lymph % (Auto) 9.0 L [place] % (Auto) 10.0 Eos % (Auto) 0.1 Baso % (Auto) 0.3 Absolute Neuts (auto) 7.4 Absolute Lymphs (auto) 0.83 Nucleated RBC % 0 Sodium 137 Potassium 3.4 L Chloride 111 H Carbon Dioxide 23.0 Anion Gap 3 L BUN 15 Creatinine 0.71 Estim Creat Clear Calc 97.07 Est GFR (MDRD) Af Amer 130 Est GFR (MDRD) Non-Af 107 BUN/Creatinine Ratio 21.0 H Glucose 106 Calcium 9.4 Total Bilirubin 2.00 H Direct Bilirubin 0.39 H AST 15 ALT 21 Alkaline Phosphatase 67 Total Protein 7.3 Albumin 3.7 Globulin 3.6 Serum , Qual NEGATIVE Urine Color Yellow Urine Clarity Clear Urine pH 8.0 Ur Specific [place] 1.015 Urine Protein 15 H Urine Glucose (UA) Normal Urine Ketones 50 H Urine Occult Blood Negative Urine Nitrite Negative Urine Bilirubin Negative Urine Urobilinogen Normal Ur Leukocyte Esterase 25 H Urine RBC 0 SEEN Urine WBC 0 SEEN Ur Squamous Epith Cells 0 SEEN Urine Bacteria 0 SEEN Urine Mucus 0 SEEN Monoscreen Negative Radiography Diagnostic Testing: Clinical Impression(s) from Imaging Studies Chest X-Ray 03/25/23 23:15 IMPRESSION: No radiographic evidence of acute cardiopulmonary disease. Electronically Signed: James Barksdale DO at 23:24 EST , Discharge Plan Triage Chief Complaint: Fever ED Provider: Audi Salter Dx/Rx/DC Orders Clinical Impression: Headache, Vomiting, Acute febrile illness Instructions: ED FUO Adult Prescriptions: No Action famotidine 20 mg tablet 20 mg PO Q12H Patient Comments: TAKE 1 TABLET BY MOUTH TWICE DAILY DHA 200 mg capsule 200 mg PO DAILY azithromycin [Zithromax Z-Kurt] 250 mg tablet 250 mg PO DAILY 4 Days Qty: 4 0RF Rx Instructions: start on day 2 of therapy Primary Care Provider: Ai Freeman NP Referrals: Ai Freeman NP, [facility] [employer] [facility] [Primary Care Provider] - 1-2 Days if not improving Disposition Disposition: Home, Self Care Discharge Date/Time: 03/26/23 02:07
[2023-03-25] MEDS: Acetaminophen 500 MG Tablet 1000 MG PO (23:06)
[2023-03-25] MEDS: 0.9% Normal Saline (1000mL) 1,000 ML 1000 ML IV (23:06)
--- NOTE | 2023-03-25 23:15 | RAD_ITS ---
EXAM: XR CHEST, 1 VIEW CLINICAL INDICATION: fever TECHNIQUE: Frontal view of the chest. COMPARISON: No relevant prior studies available. FINDINGS: LUNGS AND PLEURAL SPACES: No significant abnormality. No consolidation or edema. No pneumothorax. No effusion. HEART: No significant abnormality. Cardiac silhouette not enlarged. MEDIASTINUM: Central airways and mediastinal contour are unremarkable. BONES/JOINTS: No significant abnormality. No acute fracture. SOFT TISSUES: No significant abnormality. RAD/Chest 1 View (Portable) IMPRESSION: No radiographic evidence of acute cardiopulmonary disease. Electronically Signed: James Barksdale DO at 23:24 EST ,
[2023-03-25 23:17] LABS: Bacteria 0 SEEN /hpf (None Seen); Mucous, Urine 0 SEEN /hpf (<or=2+); Red Blood Cells-Urine 0 SEEN /hpf (0-5); Squamous Epithelial Cells - UA 0 SEEN /hpf (5-10); White Blood Cells 0 SEEN /hpf (0-5)
[2023-03-25 23:18] LABS: Absolute Lymphocyte Count 0.83 X10^3/uL (0.83-4.51); Absolute Neutrophil Count 7.4 X10^3/uL (2.0-7.7); Basophil# 0.03 X10^3/uL; Basophil% 0.3 % (0-1); Eosinophil# 0.01 X10^3/uL; Eosinophils% 0.1 % (0-5); Hematocrit 40.5 % (37-47); Lymphocyte # 0.83 X10^3/ul (0.83-4.51); Mean Corp Hgb Conc 32.1 g/dL (32-36); Mean Platelet Vol. 10.4 fl (6.2-12.0); Monocyte# 0.92 X10^3/uL; NRBC Flagged by Analyzer 0 % (0-5); Neutrophil % 80.3 % (47-70); Platelet Count 178 K/mm3 (150-450); RBC Distribution Width CV 16.8 % (11.6-14.6); Red Blood Count 4.82 M/mm3 (4.2-5.4); White Blood Count 9.2 K/mm3 (4.4-11.0)
[2023-03-25 23:19] LABS: Color, Urine Yellow (Yellow); Glucose, Dipstick Normal (Normal); Ketone-Dipstick 50 mg/dl (Negative); Leukocyte Esterase-Dipstick 25 /ul (Negative); Nitrite-Dipstick Negative (Negative); Occult Blood-Urine Negative /ul (Negative); Protein-Dipstick 15 mg/dl (Negative); Specific Gravity, Urine 1.015 (1.002-1.030); Urine Bilirubin Dipstick Negative (Negative); Urine Clarity Clear (Clear); Urine Urobilinogen Normal (Normal)
[2023-03-25 23:30] LABS: Internal QC Validated? YES +Cl - CLEAR BKGD; Monotest Negative (Negative)
[2023-03-25 23:32] LABS: Internal QC Validated? YES +Cl - CLEAR BKGD; Pregnancy, Serum, hCG Quali. NEGATIVE Negative; Record Kit Lot#, Mono 13231163
[2023-03-25 23:36] LABS: AST(SGOT) 15 U/L (15-37); Alanine Aminotransfer ALT/SGPT 21 U/L (13-56); Albumin, Serum 3.7 g/dL (3.2-5.0); Alkaline Phosphatase 67 U/L (45-117); Anion Gap 3 (5-15); BUN 15 mg/dL (7-18); Bilirubin, Direct 0.39 mg/dL (0.00-0.30); Calcium,Total 9.4 mg/dL (8.5-10.1); Chloride 111 mmol/L (98-107); Creatinine, Serum 0.71 mg/dL (0.55-1.02); EST Glomerular Filtration Rate 107 mL/min (>60); Est Glom Filt Rate - Afr Amer 130 mL/min (>60); Estimated Creatinine Clearance 97.07 ml/min; Globulin 3.6 g/dL (2.2-4.2); Glucose 106 mg/dL (74-106); Potassium 3.4 mmol/L (3.5-5.1); Protein, Total 7.3 g/dL (6.4-8.2); Sodium Level 137 mmol/L (136-145)
[2023-03-26] MEDS: Ketorolac 30 MG/ML Syringe IV (00:35)
[2023-03-26 01:32] VITALS: BP 91/50; PULSE 80; RESP 16; TEMP 36.3; O2SAT 96
== END 2023-03-26 02:07 | disposition home or self-care (01) ==
PROVIDERS: Emergency Provider Emergency Medicine; PCP Nurse Practitioner Family; Visit Provider Emergency Medicine
DX: R51.9 Headache, unspecified (principal); R11.10 Vomiting, unspecified
CPT/HCPCS: 71045; 80048; 80076; 81001; 84703; 85025; 86308; 87631; 96361; 96374; 99283; J7030; A4216

== ENCOUNTER 2023-03-28 14:41 | Emergency (ER) | payer MEDICAID, SELFPAY ==
[2023-03-28 14:42] VITALS: BP 103/71; PULSE 76; RESP 16; TEMP 36.8; O2SAT 99; BMI 19.3
--- OUTSIDE RECORDS SUMMARY | 2023-03-28 15:30 | XMS RPT_ITS | CCD ---
Author Name Unknown Address [id number] [place] [address] Organization [facility] Care Team Providers Care Rod Buster Name Role Phone Brian Wilson W Unavailable [place]available [place] Unavailable Unavailable Gracie Panchal Unavailable Unavailable [...] Unavailable Unavailable RADHA HAGER Unavailable Unavailable Boyd FAMILY NURSE.Meir AKERS Primary Care Provider Unavailable Primary Care Provider Unavailabl e PROVIDER, UNKNOWN Attending Unavailable PROVIDER, UNKNOWN Admitting Unavailable PATIENT, SELF Referring Unavailable Boyd FAMILY NURSE.Meir AKERS Primary Care Provider Boyd BOUDREAUXN.MICROFICHE CAMERA OPERATOR, [facility] Primary Care Provider Boyd FAMILY NURSE.MICROFICHE CAMERA OPERATOR, [facility] Primary Care Provider [facility] FAMILY NURSE.MICROFICHE CAMERA OPERATOR, [facility] Primary Care Provider RAMONA DO-YESSI EWING Attending Unavail able NO FAMILY PHYSICIAN, 837 Primary Care Unavail able RAMONA DO-FACOGYESSI Attending Unavail able NO FAMILY PHYSICIAN, 837 Primary Care Unavail able RAMONA DO-FACOGYESSI Attending Unavail able NO FAMILY PHYSICIAN, 837 Primary Care Unavail able CHAPINCITO ZAVALA Referring Unavailable BOYD, MEIR Primary Care Unavailable JESSICA BARON Admitting Unavailable JESSICA BARON Attending Unavailable BOYD, MEIR Primary Care Unavailable BOYD, MEIR Primary Care Unavailable KESSLER, LAURI Referring Unavailable BOYD, MEIR Primary Care Unavailable BOYD, MEIR Primary Care Unavailable MALIK CHERRY Attending Unavailable KESSLER, LAURI Referring Unavailable BOYD, MEIR Primary Care Unavailable MALIK CHERRY Attending Unavailable NAGI, LAURI Referring Unavailable JOEL, OPAL Admitting Unavailable MIHALIK, OPAL Attending Unavailable [facility], MEIR Primary Care Unavailable BACAK, HIRA Admitting Unavailable BOYD, MEIR Primary Care Unavailable DESIREE MAYO Attending Unavailable [facility], MEIR Primary Care Unavailable SOZEN, COLUNGA Admitting Unavailable SOZEN, COLUNGA Attending Unavailable ABIGAIL PARKER Attending Unavailab le [facility], MEIR Primary Care Unavailable BACAK, HIRA Admitting Unavailable BACAK, HIRA Admitting Unavailable BACAK, HIRA Attending Unavailable BOYD, MEIR Primary Care Unavailable KIMANI NÚÑEZ Attending Unavailable CHAPINCITO ZAVALA Referring Unavailable BOYD, MEIR Primary Care Unavailable WILTON KARSCOTT Referring Unavailable EV CHANG Attending Unavailable BOYD, MEIR Primary Care Unavailable WILTON, KARMON Referring Unavailable BOYD, MEIR Primary Care Unavailable WILTON KARMON Referring Unavailable BOYD, MEIR Primary Care Unavailable WILTON KARSCOTT Referring Unavailable BOYD, MEIR Primary Care Unavailable ANA MARIA THOMPSON Referring Unavail able BOYD, MEIR Primary Care Unavailable LUCAS CHAPINCITO L Referring Unavailable BOYD, MEIR Primary Care Unavailable PAM YARBROUGH Attending Unavailable LUCAS CHAPINCITO L Referring Unavailable BOYD, MEIR Primary Care Unavailable KIMANI NÚÑEZ Attending Unavailable BOYD, MEIR Primary Care Unavailable AMNA ZAVALACA L Attending Unavailable BOYD, MEIR Primary Care Unavailable KIMANI NÚÑEZ Referring Unavailable ANA MARIA THOMPSON Attending Unavail able BOYD, MEIR Primary Care Unavailable WILTON KARMON Referring Unavailable BOYD, MEIR Primary Care Unavailable LAURI KESSLER Attending Unavailable BOYD, MEIR Primary Care Unavailable KIMANI NÚÑEZ Referring Unavailable LAURI KESSLER Attending Unavailable BOYD, MEIR Primary Care Unavailable KIMANI NÚÑEZ Attending Unavailable WILTON KARSCOTT Referring Unavailable BOYD, MEIR Primary Care Unavailable WILTON KARSCOTT Referring Unavailable BOYD, MEIR Primary Care Unavailable KIMANI NÚÑEZ Attending Unavailable BOYD, MEIR Primary Care Unavailable BOYD, MEIR Primary Care Unavailable LUCAS CHAPINCITO L Referring Unavailable BOYD, MEIR Primary Care Unavailable TUSHAR SEO Attending Unavailable WILTON KARSCOTT Referring Unavailable BOYD, MEIR Primary Care Unavailable LUCAS CHAPINCITO L Referring Unavailable BOYD, MEIR Primary Care Unavailable LUCAS CHAPINCITO L Referring Unavailable BOYD, MEIR Primary Care Unavailable LUCAS CHAPINCITO L Attending Unavailable BOYD, MEIR Primary Care Unavailable KIMANI NÚÑEZ Referring Unavailable BOYD, MEIR Primary Care Unavailable BOYD, MEIR Primary Care Unavailable BOYD, MEIR Primary Care Unavailable BOYD, MEIR Primary Care Unavailable LUCAS CHAPINCITO L Referring Unavailable YULIANA CARLOS Attending Unavailable BOYD, MEIR Primary Care Unavailable LUCAS CHAPINCITO L Referring Unavailable LUCAS CHAPINCITO L Attending Unavailable BOYD, MEIR Primary Care Unavailable ANA MARIA THOMPSON Referring Unavail able BOYD, MEIR Primary Care Unavailable LUCAS CHAPINCITO L Referring Unavailable BOYD, MEIR Primary Care Unavailable LUCAS CHAPINCITO L Referring Unavailable BOYD, MEIR Primary Care Unavailable BOYD, MEIR Primary Care Unavailable Allergies Allergy Classification Reported Allergen(s) Allergy Type Date of Onset Reaction(s) Facility (20 sources) Penicillins; Translations: [penicillins] Propensity to adverse reactions to drug (disorder) 4 [facility] Repository (20 sources) Sertraline; Translations: [SERTRALINE] Drug Allergy 0 Intolerance, Upset Stomach [place] Work Phone: (2 sources) Amoxicillin; Translations: [AMOXICILLIN] Drug Allergy 2 [facility] Medications Current Medications Medication Drug [...] (Normalized) Sig (Original) 1.1 ml HYDROXYprogesterone caproate (group home) 250 mg/ml auto-injector (20 sources) Start: 06-22-2021 [...] source) Anxiety; Translations: [Anxiety disorder, unspecified] Chronic Disorders of teeth and jaw (1 source) [...] sources) Seizure; Translations: [Unspecified convulsions] 04-29-2021 Episodic Fever of unknown origin (1 source) Fever; Translations: [Fever, unspecified] 03-25-2023 Episodic Headache; including migraine (1 source) Migraine; [...] single episode, unspecified] Onset: 08-23-2013 04-11-2021 Chronic Other complications of ; puerperium affecting management [...] 11-09-2022 Chronic Other complications of (20 sources) Anemia of ; Translations: [Anemia complicating , unspecified trimester] Onset: 11-07-2022 11-08-2022 Chronic Other complications of (2 sources) Anemia during - baby not yet delivered; Translations: [Anemia complicating , second trimester] 11-09-2022 Chronic Other complications of (1 source) Anemia complicating , second trimester; Translations: [Maternal iron deficiency anemia complicating , second trimester] Onset: 11-09-2022 Chronic Other complications of (11 sources) Uterine size [...] second trimester] Onset: 11-05-2022 11-08-2022 Episodic Other female genital disorders (1 source) Pruritus of vagina; Translations: [Other specified noninflammatory disorders of vagina] 10-29-2022 Episodic Other gastrointestinal disorders (20 sources) Abnormal [...] Translations: [Encounter for sterilization] Onset: 09-18-2021 Episodic Deficiency and other anemia (1 source) Iron deficiency anemia, unspecified; Translations: [Maternal iron deficiency anemia complicating , second trimester] Onset: 11-09-2022 Episodic Diabetes mellitus without complication (1 source) Increased glucose level; Translations: [Other abnormal glucose] Onset: 06-21-2020 04-11-2021 Episodic Diabetes or abnormal glucose tolerance complicating ; childbirth; or the puerperium (10 sources) Abnormal glucose level; Translations: [Abnormal glucose complicating ] Onset: 06-21-2020 11-30-2022 Episodic Normal and/or delivery (20 sources) Encounter for supervision of normal , unspecified, unspecified trimester; Translations: [Normal ] Onset: 09-11-2017 Episodic Other circulatory disease (1 source) History [...] 04-29-2021 Episodic Other complications of (20 sources) H/O: premature delivery; Translations: [Supervision of other high risk pregnancies, unspecified trimester] Onset: 04-29-2021 05-01-2021 Episodic Other complications of (20 sources) Poor growth affecting management; Translations: [Maternal care for other known or suspected poor growth, third trimester, fetus 1] Onset: 08-21-2021 Episodic Other complications of (2 sources) Supervision of other high risk pregnancies, unspecified trimester; Translations: [History of delivery, currently ] Onset: 07-09-2022 Episodic Other complications of (1 source) Supervision of other high risk pregnancies, second trimester; Translations: [Supervision of other high risk pregnancies, second trimester] Onset: 09-15-2022 Episodic Other female genital disorders (1 source) Personal history of pre-term labor; Translations: [History of delivery] Onset: 10-14-2022 Episodic Residual codes; unclassified (20 sources) H/O: [...] 07-09-2022 Episodic Residual codes; unclassified (1 source) 23 weeks gestation of ; Translations: [23 weeks gestation of ] Onset: 10-14-2022 Episodic Residual codes; unclassified (1 source) 13 weeks gestation of ; Translations: [13 weeks gestation of ] Onset: 09-15-2022 Episodic Results Test Name Value Interpretation Reference Range Facil ity Vital Signs Date Time Vital Sign Value Performing Clinician Skinny palmer 03-25-2023 16:54-0500 Body temperature 100 [degF] Padmini Núñez APRN.CNP Work Phone: [place] 03-25-2023 16:54-0500 Body weight 49.44 kg Padmini Núñez APRN.CNP Work Phone: [place] 03-25-2023 16:54-0500 Diastolic blood pressure 71 mm[Hg] Padmini Núñez APRN.CNP Work Phone: [place] 03-25-2023 16:54-0500 Heart rate 103 /min Padmini Núñez FAMILY NURSE.MICROFICHE CAMERA OPERATOR Work Phone: [place] 03-25-2023 16:54-0500 Respiratory rate 18 /min Padmini Núñez FAMILY NURSE.MICROFICHE CAMERA OPERATOR Work Phone: [place] 03-25-2023 16:54-0500 SaO2% (BldA) [Mass fraction] 100 % Padmini Núñez FAMILY NURSE.MICROFICHE CAMERA OPERATOR Work Phone: [place] 03-25-2023 16:54-0500 Systolic blood pressure 107 mm[Hg] Padmini Núñez FAMILY NURSE.MICROFICHE CAMERA OPERATOR Work Phone: [place] 12-23-2022 11:21-0400 Body weight 59.42 kg Ana Maria Sanchez MD Work Phone: [place] 12-23-2022 11:21-0400 Diastolic blood pressure 77 mm[Hg] Ana Maria Sanchez MD Work Phone: [place] 12-23-2022 11:21-0400 Systolic blood pressure 113 mm[Hg] Ana Maria Sanchez MD Work Phone: [place] 12-18-2022 08:54-0400 Diastolic blood pressure 61 mm[Hg] Tushar Seo MD Work Phone: [place] 12-18-2022 08:54-0400 Heart rate 76 /min Tushar Seo MD Work Phone: [place] 12-18-2022 08:54-0400 Systolic blood pressure 95 mm[Hg] Tushar Seo MD Work Phone: [place] 12-17-2022 10:29-0400 Body weight 57.15 kg Ev Chang MD Work Phone: [place] 12-17-2022 10:29-0400 Diastolic blood pressure 72 mm[Hg] Ev Chang MD Work Phone: [place] 12-17-2022 10:29-0400 Heart rate 88 /min Ev Chang MD Work Phone: [place] 12-17-2022 10:29-0400 Systolic blood pressure 104 mm[Hg] Ev Chang MD Work Phone: [place] 12-10-2022 08:38-0400 Body weight 57.34 kg Kimani Núñez MD Work Phone: [place] 12-10-2022 08:38-0400 Diastolic blood pressure 62 mm[Hg] Kimani Núñez MD Work Phone: [place] 12-10-2022 08:38-0400 Systolic blood pressure 92 mm[Hg] Kimani Núñez MD Work Phone: [place] 12-10-2022 08:00-0400 Body height 160 cm Ob Ultrasound Work Phone: [place] 12-10-2022 08:00-0400 Body weight 57.61 kg Ob Ultrasound Work Phone: [place] 11-26-2022 09:16-0400 Body weight 56.16 kg Pam Plotts FAMILY NURSE.CNM Work Phone: [place] 11-26-2022 09:16-0400 Diastolic blood pressure 54 mm[Hg] Pam Plotts FAMILY NURSE.CNM Work Phone: [place] 11-26-2022 09:16-0400 Systolic blood pressure 90 mm[Hg] Pam Plotts FAMILY NURSE.CNM Work Phone: [place] 11-12-2022 10:35-0400 Body weight 53.52 kg Chapincito Zavala MD Work Phone: [place] 11-12-2022 10:35-0400 Diastolic blood pressure 54 mm[Hg] Chapincito Zavala MD Work Phone: [place] 11-12-2022 10:35-0400 Systolic blood pressure 92 mm[Hg] Chapincito Zavala MD Work Phone: [place] 10-29-2022 11:52-0400 Body weight 53.8 kg Yuliana Carlos MD Work Phone: [place] 10-29-2022 11:52-0400 Diastolic blood pressure 70 mm[Hg] Yuliana Carlos MD Work Phone: [place] 10-29-2022 11:52-0400 Systolic blood pressure 110 mm[Hg] Yuliana Carlos MD Work Phone: [place] 10-14-2022 14:00-0400 Body weight 51.26 kg Chapincito Zavala MD Work Phone: [place] 10-14-2022 14:00-0400 Diastolic blood pressure 56 mm[Hg] Chapincito Zavala MD Work Phone: [place] 10-14-2022 14:00-0400 Systolic blood pressure 98 mm[Hg] Chapincito Zavala MD Work Phone: [place] 09-24-2022 08:49-0400 Body height 160 cm Ob Ultrasound Work Phone: [place] 09-24-2022 08:49-0400 Body weight 49.9 kg Ob Ultrasound Work Phone: [place] 09-10-2022 10:01-0400 Body weight 48.53 kg Ob Ultrasound Work Phone: [place] 09-04-2022 12:07-0400 Body temperature 98.29 [degF] Usman Ang MD Work Phone: [place] 09-04-2022 12:07-0400 Body weight 47.17 kg Usman Ang MD Work Phone: [place] 09-04-2022 12:07-0400 Diastolic blood pressure 66 mm[Hg] Usman Ang MD Work Phone: [place] 09-04-2022 12:07-0400 Heart rate 118 /min Usman Ang MD Work Phone: [place] 09-04-2022 12:07-0400 Respiratory rate 18 /min Usman Ang MD Work Phone: [place] 09-04-2022 [id number] SaO2% (BldA) [Mass fraction] 97 % Usman Ang MD Work Phone: [place] 09-04-2022 12:07-0400 Systolic blood pressure 110 mm[Hg] Usman Ang MD Work Phone: [place] 08-27-2022 09:13-0400 Diastolic blood pressure 60 mm[Hg] Kimani Núñez MD Work Phone: [place] 08-27-2022 [id number] Systolic blood pressure 100 mm[Hg] Kimani Núñez MD Work Phone: [place] 08-27-2022 [id number] Body height 160 cm Ob Ultrasound Work Phone: [place] 08-27-2022 [id number] Body weight 46.72 kg Ob Ultrasound Work Phone: [place] 08-04-2022 15:05-0400 Body weight 44 kg Kimani Núñez MD Work Phone: [place] 08-04-2022 15:05-0400 Diastolic blood pressure 58 mm[Hg] Kimani Núñez MD Work Phone: [place] 08-04-2022 15:05-0400 Systolic blood pressure 96 mm[Hg] Kimani Núñez MD Work Phone: [place] 06-02-2022 12:21-0400 Body temperature 97.9 [degF] Mat Alcala FAMILY NURSE.MICROFICHE CAMERA OPERATOR Work Phone: [place] 06-02-2022 12:21-0400 Body weight 46.18 kg Mat Alcala APRN.MICROFICHE CAMERA OPERATOR Work Phone: [place] 06-02-2022 12:21-0400 Diastolic blood pressure 60 mm[Hg] Mat Alcala APRN.MICROFICHE CAMERA OPERATOR Work Phone: [place] 04-11-2023 12:21-0400 Heart rate 94 /min Mat Alcala FAMILY NURSE.MICROFICHE CAMERA OPERATOR Work Phone: [place] 06-02-2022 12:21-0400 Respiratory rate 16 /min Mat Fredrick FAMILY NURSE.MICROFICHE CAMERA OPERATOR Work Phone: [place] 06-02-2022 12:21-0400 SaO2% (BldA) [Mass fraction] 98 % Mat Alcala FAMILY NURSE.MICROFICHE CAMERA OPERATOR Work Phone: [place] 06-02-2022 12:21-0400 Systolic blood pressure 96 mm[Hg] Mat Fredrick FAMILY NURSE.MICROFICHE CAMERA OPERATOR Work Phone: [place] 05-28-2022 13:56-0400 Body temperature 98.8 [degF] Usman Ang MD Work Phone: [place] 05-28-2022 13:56-0400 Body weight 45.99 kg Usman Ang MD Work Phone: [place] 05-28-2022 13:56-0400 Diastolic blood pressure 64 mm[Hg] Usman Ang MD Work Phone: [place] 05-28-2022 13:56-0400 Heart rate 71 /min Usman Ang MD Work Phone: [place] 05-28-2022 13:56-0400 Respiratory rate 16 /min Usman Ang MD Work Phone: [place] 05-28-2022 13:56-0400 SaO2% (BldA) [Mass fraction] 100 % Usman Ang MD Work Phone: [place] 05-28-2022 13:56-0400 Systolic blood pressure 110 mm[Hg] Usman Ang MD Work Phone: [place] 02-26-2022 14:06-0500 Body weight 47.17 kg Meir Nix FAMILY NURSE.MICROFICHE CAMERA OPERATOR Work Phone: [place] 02-26-2022 14:06-0500 Diastolic blood pressure 60 mm[Hg] Meir Boyd FAMILY NURSE.MICROFICHE CAMERA OPERATOR Work Phone: [place] 02-26-2022 14:06-0500 Heart rate 78 /min Meirmo Zafarman FAMILY NURSE.MICROFICHE CAMERA OPERATOR Work Phone: [place] 02-26-2022 14:06-0500 Respiratory rate 16 /min Meirmo Zafarman FAMILY NURSE.MICROFICHE CAMERA OPERATOR Work Phone: [place] 02-26-2022 14:06-0500 SaO2% (BldA) [Mass fraction] 96 % Meirmo Zafarman FAMILY NURSE.MICROFICHE CAMERA OPERATOR Work Phone: [place] 02-26-2022 14:06-0500 Systolic blood pressure 98 mm[Hg] Meir Zafarman FAMILY NURSE.MICROFICHE CAMERA OPERATOR Work Phone: [place] 12-24-2021 09:11-0400 Body weight 50.89 kg Pam Plotts FAMILY NURSE.CNM Work Phone: [place] 12-24-2021 09:11-0400 Diastolic blood pressure 60 mm[Hg] Pam Plotts FAMILY NURSE.CNM Work Phone: [place] 12-24-2021 09:11-0400 Systolic blood pressure 98 mm[Hg] Pam Plotts FAMILY NURSE.CNM Work Phone: [place] 11-13-2021 09:32-0400 Body weight 55.79 kg Yuliana Carlos MD Work Phone: [place] 11-13-2021 09:32-0400 Diastolic blood pressure 64 mm[Hg] Yuliana Carlos MD Work Phone: [place] 11-13-2021 09:32-0400 Systolic blood pressure 110 mm[Hg] Yuliana Carlos MD Work Phone: [place] 11-06-2021 10:16-0400 Body height 160 cm Lauri Kessler MD Work Phone: [place] 11-06-2021 10:16-0400 Body weight 54.43 kg Lauri Kessler MD Work Phone: [place] 11-06-2021 10:16-0400 Diastolic blood pressure 58 mm[Hg] Lauri Kessler MD Work Phone: [place] 11-06-2021 10:16-0400 Systolic blood pressure 94 mm[Hg] Lauri Kessler MD Work Phone: [place] 11-06-2021 10:01-0400 Diastolic blood pressure 62 mm[Hg] Kimani Núñez MD Work Phone: [place] 11-06-2021 10:01-0400 Systolic blood pressure 84 mm[Hg] Kimani Núñez MD Work Phone: [place] 10-30-2021 09:30-0400 Body weight 54.52 kg Pam Plotts FAMILY NURSE.CNM Work Phone: [place] 10-30-2021 09:30-0400 Diastolic blood pressure 60 mm[Hg] Pam Plotts FAMILY NURSE.CNM Work Phone: [place] 10-30-2021 09:30-0400 Systolic blood pressure 100 mm[Hg] Pam Plotts FAMILY NURSE.CNM Work Phone: [place] 10-16-2021 09:35-0400 Body weight 52.89 kg Kimani Núñez MD Work Phone: [place] 10-16-2021 09:35-0400 Diastolic blood pressure 54 mm[Hg] Kimani Núñez MD Work Phone: [place] 10-16-2021 09:35-0400 Systolic blood pressure 88 mm[Hg] Kimani Núñez MD Work Phone: [place] 10-02-2021 09:20-0400 Body weight 52.62 kg Pam Plotts FAMILY NURSE.CNM Work Phone: [place] 10-02-2021 09:20-0400 Diastolic blood pressure 58 mm[Hg] Pam Plotts FAMILY NURSE.CNM Work Phone: [place] 10-02-2021 09:20-0400 Systolic blood pressure 90 mm[Hg] Pam Plotts FAMILY NURSE.CNM Work Phone: [place] 09-18-2021 11:09-0400 Body weight 51.71 kg Yuliana Carlos MD Work Phone: [place] 09-18-2021 11:09-0400 Diastolic blood pressure 58 mm[Hg] Yuliana Carlos MD Work Phone: [place] 09-18-2021 11:09-0400 Systolic blood pressure 104 mm[Hg] Yuliana Carlos MD Work Phone: [place] 08-21-2021 10:00-0400 Body weight 48.08 kg Pam Plotts FAMILY NURSE.CNM Work Phone: [place] 08-21-2021 10:00-0400 Diastolic blood pressure 60 mm[Hg] Pam Plotts FAMILY NURSE.CNM Work Phone: [place] 08-21-2021 10:00-0400 Systolic blood pressure 100 mm[Hg] Pam Plotts FAMILY NURSE.CNM Work Phone: [place] 08-14-2021 11:45-0400 Body height 160 cm Lauri Kessler MD Work Phone: [place] 08-14-2021 11:45-0400 Body weight 48.08 kg Lauri Kessler MD Work Phone: [place] 07-24-2021 14:30-0400 Body weight 47.17 kg Yuliana Carlos MD Work Phone: [place] 07-24-2021 14:30-0400 Diastolic blood pressure 60 mm[Hg] Yuliana Carlos MD Work Phone: [place] 07-24-2021 14:30-0400 Systolic blood pressure 100 mm[Hg] Yuliana Carlos MD Work Phone: [place] 07-03-2021 14:49-0400 Body weight 45.18 kg Yuliana Carlos MD Work Phone: [place] 07-03-2021 14:49-0400 Diastolic blood pressure 42 mm[Hg] Yuliana Carlos MD Work Phone: [facility] 07-03-2021 14:49-0400 Systolic blood pressure 80 mm[Hg] Yuliana Carlos MD Work Phone: [place] 06-05-2021 09:26-0400 Body weight 45.18 kg Kimani Núñez MD Work Phone: [facility] 06-05-2021 09:26-0400 Diastolic blood pressure 60 mm[Hg] Kimani Núñez MD Work Phone: [place] 06-05-2021 09:26-0400 Systolic blood pressure 88 mm[Hg] Kimani Núñez MD Work Phone: [place] Encounters Encounter Date Encounter Type Care Provider Facility Start: 03-25-2023 End: 03-25-2023 ambulatory [facility] Facility:[facility] Start: 03-25-2023 End: 03-25-2023 Patient encounter procedure Padmini Núñez APRN.MICROFICHE CAMERA OPERATOR Work Phone: [facility] Procedures Date Procedure Procedure Detail Performing Clinician Start: 03-25-2023 COVID & INFLUENZA A/ B & RSV NAAT, ROUTINE Padmini Núñez APRN.MICROFICHE CAMERA OPERATOR Work Phone: Start: 12-24-2022 Antibody screen JESSICA AGUAYO Plan of Treatment Date Care Activity Detail Author Start: 05-21-2049 Shingles (RZV) Vaccine (1 of 2) Shingles (RZV) Vaccine (1 of 2) [facility] Start: 11-12-2032 Urine microalbumin profile DTaP,Tdap,Td Vaccine (11 - Td or Tdap) [facility] Start: 09-19-2031 Urine microalbumin profile [facility] Start: 06-20-2030 Tetanus vaccination Tetanus (Td) Booster [facility] Start: 06-20-2030 Urine microalbumin profile DTAP,TDAP,TD (9 - Td or Tdap) [place] Start: 05-01-2024 PAP TESTING PAP TESTING [facility] Start: 05-01-2024 Screening for malignant neoplasm of cervix Pap Testing [facility] Start: 07-11-2023 CHLAMYDIA SCREENING (18-) CHLAMYDIA SCREENING (18-24) [facility] Start: 07-11-2023 GC (GONORRHEA) SCREENING (18-24) GC (GONORRHEA) SCREENING (18-24) [place] Start: 07-11-2023 Screening for Chlamydia trachomatis Chlamydia Screening (18-) [place] Start: 02-22-2023 Depression Assessment Depression Assessment [facility] Start: 11-30-2022 End: 01-30-2023 GEST GLUC NICHOLAS, 3-HR, 100 GM, FASTING GEST GLUC NICHOLAS, 3-HR, 100 GM, FASTING Lab Routine Abnormal glucose complicating Expected: 11/30/2022, Expires: 01/30/2023 [facility] Work Phone: Immunizations Immunization Date Immunization Notes Care Provider Fa [facility] 11-12-2022 tetanus toxoid, redu esequiel diphtheria toxoid, and acellular pertussis vaccine, adsorbed Chapincito Zavala MD Work Phone: [place] 11-16-2021 influenza, seasonal, injectable Kimani Núñez MD Work Phone: [place] Work Phone: 11-16-2021 influenza virus vaccine, unspecified formulation Ob Ultrasound Work Phone: [place] 09-18-2021 tetanus toxoid, redu esequiel diphtheria toxoid, and acellular pertussis vaccine, adsorbed Yuliana Carlos MD Work Phone: [place] 06-20-2020 tetanus toxoid, redu esequiel diphtheria toxoid, and acellular pertussis vaccine, adsorbed Kimani Núñez MD Work Phone: [place] 02-02-2020 influenza, injectabl e, quadrivalent, contains preservative Kimani Núñez MD Work Phone: [place] 03-03-2018 tetanus toxoid, redu esequiel diphtheria toxoid, and acellular pertussis vaccine, adsorbed Kimani Núñez MD Work Phone: [place] 12-27-2017 influenza, injectabl e, quadrivalent, contains preservative Kimani Núñez MD Work Phone: [place] 02-05-2016 meningococcal B vaccine, recombinant, OMV, adjuvanted Acacia Alexander DMD, MD Work Phone: [facility] 01-01-2016 meningococcal B vaccine, recombinant, OMV, adjuvanted Acacia Alexander DMD, MD Work Phone: [facility] 08-15-2015 meningococcal polysaccharide (groups A, C, Y and W-135) diphtheria toxoid conjugate vaccine (MCV4P) Kimani Núñez MD Work Phone: [place] 01-03-2015 influenza, seasonal, injectable Kimani Núñez MD Work Phone: [place] 11-29-2013 influenza, seasonal, injectable Kimani Núñez MD Work Phone: [place] 11-06-2013 meningococcal polysaccharide (groups A, C, Y and W-135) diphtheria toxoid conjugate vaccine (MCV4P) Kimani Núñez MD Work Phone: [place] 04-13-2013 hepatitis A vaccine, pediatric/adolescent dosage, 2 dose schedule Kimani Núñez MD Work Phone: [place] 04-13-2013 human papilloma viru s vaccine, quadrivalent Kimani Núñez MD Work Phone: [place] 11-30-2012 HPV, unspecified formulation Kimani Núñez MD Work Phone: [place] 11-30-2012 influenza, injectabl e, quadrivalent, preservative free Kimani Núñez MD Work Phone: [place] 09-27-2012 hepatitis A vaccine, pediatric/adolescent dosage, 2 dose schedule Kimani Núñez MD Work Phone: [place] 09-27-2012 HPV, unspecified formulation Kimani Núñez MD Work Phone: [facility] 09-27-2012 measles, mumps and rubella virus vaccine Kimani Núñez MD Work Phone: [facility] 09-27-2012 meningococcal polysaccharide (groups A, C, Y and W-135) diphtheria toxoid conjugate vaccine (MCV4P) Kimani Núñez MD Work Phone: [place] 09-27-2012 poliovirus vaccine, inactivated Kimani Núñez MD Work Phone: [place] 09-27-2012 tetanus toxoid, redu esequiel diphtheria toxoid, and acellular pertussis vaccine, adsorbed Kimani Núñez MD Work Phone: [place] 09-27-2012 varicella virus vaccine Laurel Núñez MD Work Phone: [place] 10-16-2004 diphtheria, tetanus toxoids and acellular pertussis vaccine Kimani Núñez MD Work Phone: [place] 10-16-2004 measles, mumps and rubella virus vaccine Kimani Núñez MD Work Phone: [place] 10-16-2004 poliovirus vaccine, inactivated Kimani Núñez MD Work Phone: [place] 03-21-2003 diphtheria, tetanus toxoids and acellular pertussis vaccine, unspecified formulation Kimani Núñez MD Work Phone: [place] 03-21-2003 poliovirus vaccine, unspecified formulation Kimani Núñez MD Work Phone: [place] 08-24-2000 haemophilus influenz ae type b vaccine, conjugate unspecified formulation Kimani Núñez MD Work Phone: [place] 08-24-2000 measles, mumps and rubella virus vaccine Kimani Núñez MD Work Phone: [facility] 08-24-2000 poliovirus vaccine, inactivated Kimani Núñez MD Work Phone: [place] 05-24-2000 pneumococcal conjuga te vaccine, 7 valent Kimani Núñez MD Work Phone: [facility] 05-24-2000 varicella virus vaccine Laurel Núñez MD Work Phone: [facility] 02-26-2000 pneumococcal conjuga te vaccine, 7 valent Kimani Núñez MD Work Phone: [facility] 1999 diphtheria, tetanus toxoids and acellular pertussis vaccine, unspecified formulation Kimani Núñez MD Work Phone: [facility] 1999 haemophilus influenz ae type b vaccine, conjugate unspecified formulation Kimani Núñez MD Work Phone: [facility] 1999 hepatitis B vaccine, pediatric or pediatric/adolescent dosage Kimani Núñez MD Work Phone: [place] 1999 poliovirus vaccine, inactivated Kimani Núñez MD Work Phone: [facility] 1999 diphtheria, tetanus toxoids and acellular pertussis vaccine, unspecified formulation Kimani Núñez MD Work Phone: [facility] 1999 haemophilus influenz ae type b vaccine, conjugate unspecified formulation Kimani Núñez MD Work Phone: [place] 1999 poliovirus vaccine, unspecified formulation Kimani Núñez MD Work Phone: [facility] 1999 diphtheria, tetanus toxoids and acellular pertussis vaccine, unspecified formulation Kimani Núñez MD Work Phone: [place] 1999 haemophilus influenz ae type b vaccine, conjugate unspecified formulation Kimani Núñez MD Work Phone: [place] 1999 poliovirus vaccine, unspecified formulation Kimani Núñez MD Work Phone: [facility] 1999 hepatitis B vaccine, pediatric or pediatric/adolescent dosage Kimani Núñez MD Work Phone: [facility] 1999 hepatitis B vaccine, pediatric or pediatric/adolescent dosage Kimani Núñez MD Work Phone: [facility] Payers Date Payer Category Payer Medicaid [employer] [id number] 2018-Present [phone] [place] [id number] Medicaid [id number] 2018 Medicaid [id number] 2017 Unknown [id number] 2008 Unknown 1999 Unknown [id number] 1999 Unknown [id number] 1999 Unknown [id number] 1999 Unknown [id number] Social History Date Type Detail Facility Start: 04-29-2017 End: 10-16-2021 Tobacco smoking status NHIS Never smoked tobacco [facility] Start: 04-29-2017 End: 10-16-2021 Tobacco use and exposure Smokeless tobacco non-user [facility] Start: 06-05-2021 End: 03-25-2023 Alcohol intake Current non-drinker of alcohol (finding) [facility] Start: 02-12-2021 History SDOH Alcohol Frequency 2 [facility] Start: 02-12-2021 History SDOH Alcohol Std Drinks 1 [facility] Start: 02-12-2021 History SDOH Social Connections Phone 3 [facility] Start: 02-12-2021 History SDOH Social Connections Living 8 [facility] Start: 02-12-2021 History SDOH Physica l Activity DPW 4 [facility] Start: 02-12-2021 History SDOH Stress 5 [facility] Start: 01-25-2020 Education 15 [facility] Start: 03-21-2021 [facility] Start: 1999 Sex Assigned At Female C [facility] Start: 05-26-2021 End: 11-12-2021 Exposure to SARS-CoV-2 (event) Not sure [facility] Start: 1999 Sex Assigned At Not on file [facility] Start: 10-06-2021 End: 10-16-2021 Exposure to SARS-CoV-2 (event) Yes [facility] Start: 02-12-2021 End: 07-09-2022 History of Social function [facility] Start: 02-12-2021 End: 07-09-2022 Social connection and isolation panel [facility] Do you belong to any clubs or organizations such as holiness groups, unions, fraternal or athletic groups, or school groups? No [facility] Are you now , , , , never or living with a partner? Living with partner [facility] How often to you hav e a drink containing alcohol? Monthly or less [facility] How many standard dr inks containing alcohol do you have on a typical day? 1 or 2 [facility] How often do you hav e 6 or more drinks on 1 occasion? Never [facility] How hard is it for y ou to pay for the very basics like food, housing, medical care, and heating Somewhat hard [facility] Adult Depression Scr eening Assessment 4 [facility] Do you feel stress - tense, restless, nervous, or anxious, or unable to sleep at night because your mind is troubled all the time - these days [OSQ] Very much [place] (I/We) worried wheth er (my/our) food would run out before (I/we) got money to buy more. Never true [facility] Start: 05-02-2018 Gender identity Identifies as female gender (finding) [facility] Start: 02-12-2021 Sexual orientation Heterosexual (halle yan) [facility] Goals Date Patient Goal Desired Activity /State Personal health goal Clinical Notes 06-21-2020 to 03-25-2023 Padmini Núñez APRN.[facility] - 03/25/2023 5:09 PM EST Note Date & Type Note Facility 03-25-2023 Note HNO ID: [id number] Author: PADMINI NÚÑEZ APRN.[employer]ER[employer] OPERATOR Service: ? Author Type: Nurse Practitioner Type: Progress Notes Filed: 03/25/2023 17:17 Note Text: CC: Patient presents with: Flu Like Symptoms: Headache, fever, body aches, lymph nodes swollen x 1 day Patient has had a fever of 101F with body aches since yesterday. Patient also noted she had some swollen lymph nodes in her neck behind ear. Patient had strep about a month ago. Denies sick contacts. HPI: Keshia Silverman is a 22 year old female who presents to the office with complaint of fever and Headache for the past day. Symptoms are staying the same. Associated symptoms includes swollen glands, body aches, and fever. Denies sore throat, ear pain, wheezing, dyspnea, nausea, vomiting , and diarrhea. Treatments tried include nothing so far. with no relief of symptoms. Sick contacts: no. History of asthma, frequent episodes of bronchitis, chronic bronchitis, bronchiectasis or COPD: No Smoker: No Seasonal/environmental allergies: No The ROS is otherwise negative. The patient's pmh, medications, allergies, and past visits are reviewed. PHYSICAL EXAM: BP 107/71 Pulse 103 Temp 37.8 ?C (100 ?F) Resp 18 Wt 49.4 kg (109 lb) LMP 02/27/2023 (Exact Date) SpO2 100% No BMI 19.31 kg/m? General appearance: alert, cooperative, pleasant, in no acute distress Head: Normocephalic Eyes: PERRLA, EOM's intact, conjunctiva pink and moist, no icterus, sclera white, non-injected Ears: Right ear: External ear/canal- Normal, TM - clear with good landmarks. Left ear: External ear/canal- Normal, TM - clear with good landmarks Nose: clear. Oropharynx:moist without lesions, No erythema, exudates or tonsillar hypertrophy. Neck:supple and positive findings: few small anterior cervical nodes Heart: Negative. RRR without obvious murmur, gallop, or rubs. No ectopy. Lungs: clear to auscultation, without rales or wheeze, good air exchange PAST MEDICAL HISTORY Diagnosis Date Anemia Encounter for supervision of normal in teen primigravida, antepartum 04/05/2018 Family history of congenital heart defect 01/25/2020 -FOB's grandmother with history of VSD that was repaired - Normal echo History of depression and anxiety 01/25/2020 -Pt has a history of depression for which she received counseling -Mood stable at this time Hypotension anxiety depression 2019 difficulty gaining weight during Seizure (HCC) Had Neuro w/u. Related to Syncope. Last seizure in 2017. Syncope patient states due to hypotension PAST SURGICAL HISTORY Procedure Laterality Date NONE ALLERGIES Penicillins and Zoloft [Sertraline] MEDICATIONS prental multivitamin 27 mg iron- 800 mcg tablet Take 1 tablet by mouth once daily. iron,carb/vit C/vit B12/folic (IRON 100 PLUS ORAL) Take 1 tablet by mouth every other day. (Patient not taking: Reported on 03/25/2023) famotidine (PEPCID) 20 mg tablet Take 1 tablet by mouth twice daily. (Patient not taking: Reported on 03/25/2023) FAMILY HISTORY Problem Relation Age of Onset [...] Topics Alcohol use: No Drug use: No DATA REVIEWED: No new labs ASSESSMENT/PLAN: 1. Fever, unspecified fever cause - ICD9: 780.60, ICD10: R50.9 - Supportive care with fluids, rest, and analgesia as needed - COVID AND INFLUENZA A/B AND RSV NAAT, ROUTINE Potential red flag symptoms discussed with the patient. Patient will be contacted with results of viral testing. Reviewed appropriate action plan to take if red flag symptoms occur. Patient agreeable to treatment plan. Ami Hannon Supervising provider was present and guided the care of the patient for the entire session on this date. All documentation was reviewed and agreed upon. Padmini Núñez APRN.[facility] 03-25-2023 History of Present illness Narrative CC: Patient presents with: Flu Like Symptoms: Headache, fever, body aches, lymph nodes swollen x 1 day Patient has had a fever of 101F with body aches since yesterday. Patient also noted she had some swollen lymph nodes in her neck behind ear. Patient had strep about a month ago. Denies sick contacts. HPI: Keshia Silverman is a 22 year old female who presents to the office with complaint of fever and Headache for the past day. Symptoms are staying the same. Associated symptoms includes swollen glands, body aches, and fever. Denies sore throat, ear pain, wheezing, dyspnea, nausea, vomiting , and diarrhea. Treatments tried include nothing so far. with no relief of symptoms. Sick contacts: no. History of asthma, frequent episodes of bronchitis, chronic bronchitis, bronchiectasis or COPD: No Smoker: No Seasonal/environmental allergies: No The ROS is otherwise negative. The patient's pmh, medications, allergies, and past visits are reviewed. PHYSICAL EXAM: BP 107/71 Pulse 103 Temp 37.8 C (100 F) Resp 18 Wt 49.4 kg (109 lb) LMP 02/27/2023 (Exact Date) SpO2 100% No BMI 19.31 kg/m General appearance: alert, cooperative, pleasant, in no acute distress Head: Normocephalic Eyes: PERRLA, EOM's intact, conjunctiva pink and moist, no icterus, sclera white, non-injected Ears: Right ear: External ear/canal- Normal, TM - clear with good landmarks. Left ear: External ear/canal- Normal, TM - clear with good landmarks Nose: clear. Oropharynx:moist without lesions, No erythema, exudates or tonsillar hypertrophy. Neck:supple and positive findings: few small anterior cervical nodes Heart: Negative. RRR without obvious murmur, gallop, or rubs. No ectopy. Lungs: clear to auscultation, without rales or wheeze, good air exchange PAST MEDICAL HISTORY Diagnosis Date Anemia Encounter for supervision of normal in teen primigravida, antepartum 04/05/2018 Family history of congenital heart defect 01/25/2020 -FOB's grandmother with history of VSD that was repaired - Normal echo History of depression and anxiety 01/25/2020 -Pt has a history of depression for which she received counseling -Mood stable at this time Hypotension anxiety depression 2019 difficulty gaining weight during Seizure (HCC) Had Neuro w/u. Related to Syncope. Last seizure in 2017. Syncope patient states due to hypotension PAST SURGICAL HISTORY Procedure Laterality Date NONE ALLERGIES Penicillins and Zoloft [Sertraline] MEDICATIONS prental multivitamin 27 mg iron- 800 mcg tablet Take 1 tablet by mouth once daily. iron,carb/vit C/vit B12/folic (IRON 100 PLUS ORAL) Take 1 tablet by mouth every other day. (Patient not taking: Reported on 03/25/2023) famotidine (PEPCID) 20 mg tablet Take 1 tablet by mouth twice daily. (Patient not taking: Reported on 03/25/2023) FAMILY HISTORY Problem Relation Age of Onset [...] Topics Alcohol use: No Drug use: No DATA REVIEWED: No new labs ASSESSMENT/PLAN: 1. Fever, unspecified fever cause - ICD9: 780.60, ICD10: R50.9 - Supportive care with fluids, rest, and analgesia as needed - COVID & INFLUENZA A/B & RSV NAAT, ROUTINE Potential red flag symptoms discussed with the patient. Patient will be contacted with results of viral testing. Reviewed appropriate action plan to take if red flag symptoms occur. Patient agreeable to treatment plan. Ami Hannon Supervising provider was present and guided the care of the patient for the entire session on this date. All documentation was reviewed and agreed upon. Padmini Núñez APRN.[employer]OFICHE CAMERA OPERATOR documented in this encounter [facility] 12-27-2022 Note HNO ID: [id number] Author: Lyly Richter MD Service: Obstetrics Author [...] CDI with steristrips Discharge home today to bonding Meds: tylenol, motrin, oxy Started taking ox last night and is ambulating better now, using IS - is feeling better now Follow up: 7 -10 days for an incision check and 6 weeks for a full PP check Ewelina Munoz OBSTETRICS PROGRESS NOTE SERVICE DATE: December 27, 2022 SERVICE TIME: 0500 ASSESSMENT: 22 year old female who is Postoperative Day #3 status post Pana, Girl A Keshia Trammell [[id number]] , Low Transverse delivery with female . Pana, Girl B Keshia A [[id number]] , Low Transverse delivery with female . [...] this - Hgb on admission: 11.4 - 11 CBC 10.5 History of seizures Overview Note: [...] DATE: December 27, 2022 TIME: 1:50 AM [facility] 12-26-2022 Note HNO ID: [id number] Author: Mariajose Bruno DO Service: Obstetrics Author [...] who is Postoperative Day #2 status post Pana, Girl A Keshia Trammell [[id number]] , Low Transverse delivery with female . Pana, Girl B Keshia Trammell [[id number]] , Low Transverse delivery with female . [...] DATE: December 26, 2022 TIME: 4:54 AM [facility] 12-25-2022 Note HNO ID: [id number] Author: Milagros Day, RN Service: Nursing Author Type: Registered Nurse Type: Nursing Progress Note Filed: 12/25/2022 5:53 PM Note Text: Patient feeling bladder pressure. Up to bathroom per self. Voided 500cc. [facility] 12-25-2022 Note HNO ID: [id number] Author: Milagros Day RN Service: Nursing Author Type: Registered Nurse Type: Nursing Progress Note Filed: 12/25/2022 5:58 PM Note Text: Patient up to bathroom again to try to void but was unable to. [facility] 12-25-2022 Note HNO ID: [id number] Author: Isabelle Geronimo APRN.MICROFICHE CAMERA OPERATOR Service: Obstetrics Author Type: Nurse Practitioner Type: Progress Notes Filed: 12/25/2022 10:31 AM Note Text: OBSTETRICS PROGRESS NOTE SERVICE DATE: December 25, 2022 SERVICE TIME: 1030 ASSESSMENT: 22 year old female who is Postoperative Day #1 status post Charan, Girl A Keshia A [[id number]] , Low Transverse delivery with female . Charan, Girl B Keshia A [[id number]] , Low Transverse delivery with female . LTCS 12/24 BTL [place]/di girls in [place] removed Ambulated to [...] DATE: December 25, 2022 TIME: 10:30 AM [facility] 12-25-2022 Note HNO ID: [id number] Author: Liat Waller MD Service: Obstetrics Author Type: Resident Type: Progress Notes Filed: 12/25/2022 6:29 AM Note Text: OBSTETRICS PROGRESS NOTE SERVICE DATE: December 25, 2022 SERVICE TIME: 5:14 AM ASSESSMENT: 22 year old female who is Postoperative Day #1 status post Pana, Girl A Keshia Trammell [[id number]] , Low Transverse delivery with female . Charan, Girl B Keshia Trammell [[id number]] , Low Transverse delivery with female . [...] DATE: December 25, 2022 TIME: 5:13 AM [facility] 12-25-2022 Note HNO ID: [id number] Author: Debora Alonso DO Service: Obstetrics Author [...] Debora Alonso DO Obstetrics and Gynecology PGY-3 [facility] 12-24-2022 Note HNO ID: [id number] Author: Allan Oconnor APRN.[employer] Service: Anesthesiology Author Type: Nurse [employer]ness Programs Director Type: Anesthesia Procedure Notes Filed: 12/24/2022 9:30 PM Note Text: ANESTHESIOLOGY PROCEDURE NOTE Spinal Block General Information Procedure Start Time/Medication Administration: 12/24/2022 9:20 PM Patient location during procedure: OR Timeout Performed Pre-procedure: timeout performed Consent Obtained: Yes Patient identity confirmed: arm band and patient Reason for Block: labor epidural Staffing [employer]: Allan Oconnor APRN.[employer]AC[employer] Performed by: REINFORCING STEEL PLACER Preparation Sterility Preparation: hand hygiene performed prior [...] Care Visit completed when applicable. Allan Oconnor APRN.[employer]IN[employer]ING [employer]EL PLACER SIGNATURE: Allan Oconnor APRN.[employer]IN[employer]ING [employer]EL PLACER PATIENT NAME: Keshia Silverman DATE: December 24, 2022 TIME: 9:29 PM CSN: [id number] [facility] documented as of this encounter (statuses as of 03/26/2023) [facility]11-01-2023 NoteHNO ID: [id number] Author: Ana Maria Thompson MD Service: ? Author Type: Physician Type: Progress Notes Filed: 12/23/2022 1:04 PM Note Text: NST SUMMARY PROVIDER ASSESSMENT AND INTERPRETATION Keshia Sliverman is a 22 year old female, , [...] Decelerations: None Interpretation: Category I reactive [facility] History of Present illness Narrative* Ana Maria Thompson MD - 12/23/2022 1:02 PM EDT NST SUMMARY PROVIDER ASSESSMENT AND [...] Ana Maria Mayberry MD documented in this [place]11-01-2023 Miscellaneous Notes* Quick Notes - Ana Maria Thompson MD - 12/23/2022 12:58 PM EDT DM-Pt doing well. Denies vaginal Bleeding, Leaking [...] visit after ultrasound results. documented in this [place]11-01-2023 Instructions* Patient Instructions* Deanne Vo Ma - 12/23/2022 11:22 AM EDT SEQUENTIAL SCREENINGS The [facility] offers sequential screenings for women who are [...] testing. It will require an appointment withour diagnostic technician. This is not an ultrasound performed [...] the above symptoms, contact our office at [phone] and ask to speak with anurse. After hours, you can call doctors registry at [phone] OR call [facility] at [phone] ask to have the doctor convention services director paged. If you consider this an emergency, dial 9-1-2 or go to your nearest emergency department. NEED HELP? Are you dealing with a violent or abusive relationship? Are you a victim of rape or sexual assult? Call [facility] ([place]) 24 hour Crisis Hotline: 890.626.9735 or 603-736-1893. MANUAL Your Guide to a Healthy manual is now on-line. Visit [email or web address] to download your free copy documented in this encounterCenterville10-29-2023 NoteHNO ID: [id number] Author: Ev Chang MD Service: ? Author Type: Physician Type: Progress Notes Filed: 12/20/2022 6:04 PM Note Text: MFM: 32w5d [place]/di twins with h/o labor s/p BMZ course [...] fluids. Recommend 3 h GTT. [facility]10-29-2023 History of Present illness Narrative* Ev Chang MD - 12/20/2022 5:54 PM EDT MFM: 32w5d [place]/di twins with h/o labor s/p BMZ course x 2. Today there is a new finding of polyhydramnios for twin B. Twin B with MCA doppler 1.24 MoM. Unableto obtain MCA dopplers for twin A. Reassuring MCA doppler for twin B but reviewed that this could be an early TAPS if the MCA doppler for twin A is elevated. The polyhydramnios could be secondary to GDM as well. Follow up tomorrow for MCA dopplers of twin A given the discordant fluids. Recommend 3 h GTT. Ev Chang MD * Rosie Barnes RN - 12/17/2022 12:31 PM EDT BP 104/72 Pulse 88 Wt 126 lb (57.2 kg) LMP 05/02/2022 (Exact Date) BMI 22.32 kg/m Estimated Date of Delivery: 02/06/23 NST Intervention: oral fluids Monitor: Twin A-light tracing. ML LQ Twin B- dark tracing RUQ GA: 32.5 Indication:Twins A&B failed BPP-breathing x2 Time On: 1151 Time Off: 1220 NST read and reviewed by Dr. Chang. Pt. Discharged home. Rosie Yin, RN * Ev Chang MD - 12/17/2022 12:20 PM EDT NST (TWINS) SUMMARY PROVIDER ASSESSMENT AND INTERPRETATION [...] SIGNATURE: Ev Chang MD documented in this encounterCenterville10-27-2023 NoteHNO ID: [id number] Author: Rosie Barnes RN Service: ? Author [...] Dr. Seo. Pt. [facility]charged home. [facility] History of Present illness Narrative* Rosie Barnes RN - 12/18/2022 10:43 AM EDT BP 95/61 Pulse 76 LMP 05/02/2022 (Exact [...] home. Rosie Yin RN documented in this encounterCenterville10-26-2023 NoteHNO ID: [id number] Author: Rosie Barnes RN Service: ? Author [...] Dr. Chang. Pt. Discharged home. [facility]23 NoteHNO ID: [id number] Author: Ev Chang MD Service: ? Author [...] Reactive Baby B: Reactive SIGNATURE: [facility]10-26-2023 Miscellaneous Notes* Quick Notes - Ev Chang MD - 12/17/2022 12:22 PM EDT . documented in this encounterCent[place]10-19-2023 Miscellaneous Notes* Quick Notes - Kimani Núñez MD - 12/10/2022 11:51 AM EDT KJ - VB No. LOF No. CTXS No. Movement: present x2 . Other c/o: No. Medication list reviewed. Physical Exam See Flow Sheet Gen: no accute distress, well appearing A/P 31w5d Estimated Date of Delivery: 02/06/23 [place]/di twins - weekly US. S/p BMZ last week PLan for 3hr GTT next week PTL precautions reviewed, Kick counts reviewed. Kimani Núñez MD documented in this encounterCenterville10-19-2023 Miscellaneous Notes* Telephone Encounter - Kimani Núñez MD - 12/10/2022 9:49 AM EDT Done Kimani Núñez MD * Telephone Encounter - Betina Bagley RN - 12/10/2022 9:39 AM EDT Orders pending. BETINA BAGLEY RN * Telephone Encounter - Yuki Herrera - 12/10/2022 9:27 AM EDT If you could please put in 2 new ultrasound orders for her newly scheduled ultrasounds as the ones in her active request are closed so I can link them to her appointments. Thank you! Yuki Herrera PSS documented in this encounterCenterville10-19-2023 Instructions* Patient Instructions* s Opal Mars - 12/10/2022 8:34 AM EDT SEQUENTIAL SCREENINGS The [place] offers sequential screenings for women who are [...] testing. It will require an appointment withour diagnostic technician. This is not an ultrasound performed [...] the above symptoms, contact our office at [phone] and ask to speak with anurse. After hours, you can call doctors registry at [phone] OR call [facility] at [phone] ask to have the doctor convention services director paged. If you consider this an emergency, dial 9-1-3 or go to your nearest emergency department. NEED HELP? Are you dealing with a violent or abusive relationship? Are you a victim of rape or sexual assult? Call [facility] ([place]) 24 hour Crisis Hotline: 982.716.4010 or 507-432-3904. MANUAL Your Guide to a Healthy manual is now on-line. Visit [email or web address] to download your free copy documented in this encounterCenterville10-17-2023 NoteHNO ID: [id number] Author: Zuri Clarke RN Service: Nursing Author [...] RN) Complete Time: 2044 (12/08/222044 : Zuri Clarke, RN) Indications: Labor (12/08/222044 : Zuri Clarke, PAIGE) Patient Reason For: monitor baby (12/08/222044 : Zuri Clarke, PAIGE) NST Explanation: Procedure Explained;Monitor Explained;Verbalizes Understanding (12/08/222044 : Zuri Clarke, RN) Acoustic Stimulator: No (12/08/222044 : Zuri Clarke, RN) Interventions: MONITORING/ASSESSMENT: Baseline: 145 bpm (12/08/222044 : Zuri Clarke RN) 150 bpm (12/08/222044 : Zuri Clarke, RN) Variability: Moderate (6-25 bpm) (12/08/222044 : Zuri Clarke, RN) Moderate (6-25 bpm) (12/08/222044 : Clarke, Zuri, RN) Accelerations: Present (12/08/222044 : Zuri Clarke RN) Present (12/08/222044 : Zuri Clarke RN) Decelerations: Decelerations: None (12/08/222044 : Zuri Clarke RN) Decelerations Fetus B: None (12/08/222044 : Zuri Clarke RN) Contractions: Irregular (12/08/222044 : Zuri Clarke RN) Frequency: x3 (12/08/222044 : Zuri Clarke RN) Above information forwarded to (12/08/222044 : Zuri Clarke RN) for final review and interpretation. SIGNATURE: Zuri Clarke RN PATIENT NAME: Keshia Silverman DATE: December 08, 2022 TIME: 9:46 [facility]10-17-2023 NoteHNO ID: [id number] Author: Naila Johnson MD Service: Obstetrics Author Type: Resident Type: Progress Notes Filed: 12/08/2022 9:21 PM Note Text: Attestation signed by Abigail Parker MD at 12/09/2022 8:00 PM On 12/08/22, Discussed status with resident, [facility]. Reassessed patient. She states that she feels her contractions have spaced out. She now only feels some intermittent cramping. Cervix unchanged at 4/70/-2. Baby A and Baby B with reassuring monitoring. No contractions seen in >1 hours on tocometer. Patient given strict return precautions. She stated her understanding. 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 Active Hospital Problems Diagnosis Date Noted Monochorionic diamniotic twin gestation 07/10/2022 Overview Note: - Following with [facility] in [place] - Has been getting ultrasounds for TTTS including umbilical artery dopplers every 2 weeks starting at 16 weeks - monitoring appropriate for gestational age for fetus A and B Threatened premature labor, not delivered 11/25/2021 Overview Note: - presented with contractions for the last 12 hours - recently admitted for threatened labor and - SVE 70/-2 on admission (unchanged from last admission) - Declines pain medication at this time - s/p BMZ and - GBS negative on 11/26 - Will do a 2 hour cervical (more content not included)...[facility]10-15-2023 NoteHNO ID: [id number] Author: Jeet Calloway MD Service: Nursing Author Type: Physician Type: Procedures Filed: 12/06/2022 10:20 AM Note Text: OBSTETRICS NST SUMMARY SERVICE DATE: December 06, 2022 The patient is a 22 year old female, , who is at 31w1d with an CHRIS of 02/06/2023, by Last Menstrual Period dating method. NST OBJECTIVE FINDINGS PER NURSE: Start Time: 829 (12/06/22829 : Ana María Gibson, PAIGE) Complete Time: 914 (12/06/22914 : Ana María Gibson, PAIGE) Indications: Labor (12/06/22829 : Ana María Gibson, RN) Patient Reason For: monitor wellbeing (12/06/22844 : Ana María Gibson, RN) NST Explanation: Procedure Explained;Monitor Explained;Verbalizes Understanding (12/06/22844 : Ana María Gibson RN) Acoustic Stimulator: Interventions: Other (See Comment) (none) [...] not noted. IMPRESSION: Reactive NST's x2. Jeet Calloway, [facility]10-15-2023 NoteHNO ID: [id number] Author: Jeet Calloway MD Service: Maternal Medicine [...] Overview Note: - Following with [facility] in [place] - Has been getting ultrasounds for TTTS [...] home. well being has been reassuring. Jeet Calloway, [facility]10-14-2023 History of Past illness Narrative* Problem Noted [...] tylenol, irregular, feel like labor pains -cervix 60/-3 -no concerns for STDs, no abnormal discharge [...] Overview: 05/09/21- visualized on TAUS. Pam Yarbrough APRN.EVA Supervision of other high ri sk pregnancies, [...] 01/25/2020 11/05/2022 Overview: 3Patient was seen at [facility] on June 29 for nausea and vomiting. [...] of this encounter (statuses as of 12/10/2022) [place]10-14-2023 History of Past illness Narrative* Problem Noted [...] tylenol, irregular, feel like labor pains -cervix 60/-3 -no concerns for STDs, no abnormal discharge [...] 01/25/2020 11/05/2022 Overview: 07/09/2022atient was seen at [facility] on June 29 for nausea and vomiting. [...] of this encounter (statuses as of 12/10/2022) [place]10-14-2023 History of Past illness Narrative* Problem Noted [...] tylenol, irregular, feel like labor pains -cervix 60/-3 -no concerns for STDs, no abnormal discharge [...] 01/25/2020 11/05/2022 Overview: 3Patient was seen at [facility] on June 29 for nausea and vomiting. [...] of this encounter (statuses as of 12/10/2022) [place]10-14-2023 History of Past illness Narrative* Problem Noted [...] tylenol, irregular, feel like labor pains -cervix 60/-3 -no concerns for STDs, no abnormal discharge [...] 01/25/2020 11/05/2022 Overview: 07/09/2022atient was seen at [facility] on June 29 for nausea and vomiting. [...] of this encounter (statuses as of 12/18/2022) [place]10-14-2023 History of Past illness Narrative* Problem Noted [...] tylenol, irregular, feel like labor pains -cervix 60/-3 -no concerns for STDs, no abnormal discharge [...] 01/25/2020 11/05/2022 Overview: 3Patient was seen at [facility] on June 29 for nausea and vomiting. [...] of this encounter (statuses as of 12/20/2022) [place]10-14-2023 History of Past illness Narrative* Problem Noted [...] tylenol, irregular, feel like labor pains -cervix 60/-3 -no concerns for STDs, no abnormal discharge [...] 01/25/2020 11/05/2022 Overview: 07/09/2022atient was seen at [facility] on June 29 for nausea and vomiting. [...] of this encounter (statuses as of 12/23/2022) [place]10-14-2023 NoteHNO ID: [id number] Author: Jeet Calloway MD Service: Nursing Author [...] RN) Indications: Labor (12/05/22754 : Ana María Gibson RN) Patient Reason For: MOnitor wellbeing (12/05/22754 : Ana María Gibson RN) NST Explanation: Procedure Explained;Monitor Explained;Verbalizes Understanding (12/05/22754 : Ana María Gibson RN) Acoustic Stimulator: Interventions: Other (See Comment) (none [...] to Dr Calloway (12/05/22819 : Ana María Gibson, RN) for final review and interpretation. SIGNATURE: Ana María Gibson, PAIGE PATIENT NAME: Keshia Silverman DATE: December 05, [...] regular. IMPRESSION: Reactive NST x2. Jeet Calloway, [facility]10-14-2023 NoteHNO ID: [id number] Author: Jeet Calloway MD Service: Obstetrics Author [...] negative for signs of UTI - SVE 4/70/-2 on admission (changed from 2-3/70/-2) - Declines pain medication at this time [...] gestation 07/10/2022 Overview Note: - Following with [facility] in [place] - Has been getting ultrasounds for TTTS [...] in house given advanced cervical exam. Jeet Calloway, [facility]10-14-2023 NoteHNO ID: [id number] Author: Note, Interface Service: ? Author Type: ? Type: Progress Notes Filed: 12/05/2022 5:25 AM Note Text: Epic Scheduled Downtime: 12/05/2022 1:00:00 AM to 12/05/2022 1:28:00 [facility] NoteHNO ID: [id number] Author: Emma Wiley MD Service: Obstetrics Author [...] A 120/moderate/+accels/no decels Fetus B 125/moderate/+accels/no decels [place] q5-20 min Emma Wiley MD OBGYN PGY-2 Pager #[phone] December 04, 2022 1:54 [facility]10-13-2023 NoteHNO ID: [id number] Author: Yuliana Arcos MD Service: Obstetrics Author [...] rate, symptoms to improve. Yuliana Arcos MD FIELD MECHANIC/SITE LEAD PGY-2 December 04, 2022 4:06 [facility]10-10-2023 NoteHNO ID: [id number] Author: Malik Cherry MD Service: ? Author Type: Physician Type: Progress Notes Filed: 12/01/2022 11:49 AM Note Text: Dr. Chapincito Zavala NAME: Keshia Silverman CLINIC Number.: [id number] Date of : 2000 Date of Visit: [...] appeared normal. We discussed these findings with . Keshia Trammlel Charan. In addition, the limitations of the echocardiogram [...] which included preparing to see the patient, [id number] patient care, completing clinical documentation, obtaining and/or reviewing separately obtained history, counseling and educating the patient/family/caregiver, ordering medications, tests, or procedures, independently interpreting results (not separately reported), and communicating results to the patient/family/caregiver. Sincerely, Dr. Malik [facility] History of Present illness Narrative* Malik Cherry MD - 12/01/2022 11:[address] Chapincito Zavala NAME: Keshia Silverman CLINIC Number.: [id number] Date of : 2000 Date of Visit: [...] which included preparing to see the patient, [id number] patient care, completing clinical documentation, obtaining and/or reviewing separately obtained history, counseling and educating the patient/family/caregiver, ordering medications, karine ts, or procedures, independently interpreting results (not separately reported), and communicating results to the patient/family/caregiver. Sincerely, Dr. Malik Cherry documented in this encounterCenterville10-06-2023 NoteHNO ID: [id number] Author: Emma Wiley MD Service: Obstetrics Author [...] the office. Usman Churchill M.D. Pt rechecked /. No significant change from prior. Contractions are slightly improved. Udip positive for small ketones only. Prior GBS , new GBS sent with first cervical check in case of labor. Discussed with Dr. Churchill. Okay for discharge at this time. Return precautions (PTL, vaginal bleeding, leakage of fluid) discussed with patient. Emma Wiley MD OBGYN PGY-2 Pager #[phone] November 27, 2022 4:22 [facility]10-06-2023 NoteHNO ID: [id number] Author: Marcie Esparza, RN Service: Obstetrics Author [...] NURSE: Start Time: 1440 (11/27/221515 : Marcie Esparza, RN) Complete Time: 1512 (11/27/221512 : Marcie Esparza, RN) Indications: Labor;Multiple Gestation (11/27/221515 : Marcie Esparza, RN) Patient Reason For: contractions (11/27/221515 : Marcie Esparza, RN) NST Explanation: Procedure Explained;Monitor Explained;Verbalizes Understanding [...] : Marcie Esparza RN) Present (11/27/221512 : Mracie Esparza RN) Decelerations: Decelerations: None (11/27/22 1440 [...] TIME: 3:18 [facility]10-06-2023 NoteHNO ID: [id number] Author: Emma Wiley MD Service: Obstetrics Author [...] urethral meatus CERVICAL EXAM: Dilation: 2 (11/27/22 141 : Emma Wiley MD) Station: -3 (11/27/22 141 : Emma Wiley MD) Effacement (%): 60 (11/27/22 141 : Emma Wiley MD) MONITORING/ASSESSMENT: A 140/moderate/+accels/no decels B 135/moderate/+accels/no decels [place]: irregular x2 LABS Diagnostic tests reviewed for [...] 27, 2022 TIME: 2:06 PM [phone] Miscellaneous Notes* Quick Notes - Pam Yarbrough [...] & 11/05 - Planning on delivery at [facility] P: 1) PTL precautions reviewed and when to call 2) RTO 2 weeks or sooner if needed Pam Yarbrough APRN.CNM documented in this encounterCenterville10-05-2023 Instructions* Patient Instructions* Dallin Skelton Cma - 11/26/2022 8:28 AM EDT SEQUENTIAL SCREENINGS The [place] offers sequential screenings for women who are [...] testing. It will require an appointment withour diagnostic technician. This is not an ultrasound performed [...] the above symptoms, contact our office at [phone] and ask to speak with anurse. After hours, you can call doctors registry at [phone] OR call [facility] at [phone] ask to have the doctor convention services director paged. If you consider this an emergency, dial or go to your nearest emergency department. NEED HELP? Are you dealing with a violent or abusive relationship? Are you a victim of rape or sexual assult? Call [facility] ([place]) 24 hour Crisis Hotline: 162.558.7417 or 380-868-4008. MANUAL Your Guide to a Healthy manual is now on-line. Visit [email or web address] to download your free copy documented in this encounterCenterville09-22-2023 Miscellaneous Notes* Telephone Encounter - Osmel Eugene - 11/13/2022 8:42 AM EDT Reviewed patient on the 1st time treatment report. The patient does not have a cancer dx or a chemo/radiation regimen. No further Financial Navigator intervention is needed at this time. documented in this encounterCenterville09-21-2023 NoteHNO ID: [id number] Author: Joanne Noguera Ma Service: ? Author [...] severely ill: Yes Patient denies history of Guillain-Clarklake Syndrome (a severe paralytic illness): Yes Tdap Adacel injection was given without incident. See immunizations for details of immunizations administered today. VIS sheet provided: Yes Provider Dr Zavala was present in office at time of injection.[facility]09-21-2023 Miscellaneous Notes* Quick Notes - Chapincito Zavala [...] signed Chapincito Zavala M.D. documented in this encounterCenterville09-21-2023 History of Present illness Narrative* Joanne Noguera Ma - 11/12/2022 10:40 AM EDT Patient identified [...] severely ill: Yes Patient denies history of Guillain-Clarklake Syndrome (a severe paralytic illness): Yes Tdap Adacel injection was given without incident. See immunizations for details of immunizations administered today. VIS sheet provided: Yes Provider Dr Zavala was present in office at time of injection. documented in this encounterCenterville09-21-2023 Instructions* Patient Instructions* Joanne Noguera Ma - 11/12/2022 10:36 AM EDT SEQUENTIAL SCREENINGS The [place] offers sequential screenings for women who are [...] testing. It will require an appointment withour diagnostic technician. This is not an ultrasound performed [...] the above symptoms, contact our office at [phone] and ask to speak with anurse. After hours, you can call doctors registry at [phone] OR call [facility] at [phone] ask to have the doctor convention services director paged. If you consider this an emergency, dial 0-5-0 or go to your nearest emergency department. NEED HELP? Are you dealing with a violent or abusive relationship? Are you a victim of rape or sexual assult? Call [facility] ([place]) 24 hour Crisis Hotline: 483.853.4170 or 068-818-4735. MANUAL Your Guide to a Healthy manual is now on-line. Visit [email or web address] to download your free copy documented in this encounterCenterville09-20-2023 Miscellaneous Notes* Telephone Encounter - Huong Hagen RN - 11/11/2022 4:15 PM EDT Spoke to patient and notified hematology tried to reach her. Transferred to hem/onc PSS to scheduleiron infusions. Also canceled tomorrow's u/s per u/s tech since patient had one done at [facility] when she was admitted for PTL on 11/09/22. Huong Hagen RN * Telephone Encounter - Huong Hagen RN - 11/10/2022 10:[address] Wiley at [facility] updated too. Leave open until patient [...] PM EDT 27w2d Patient being discharged from [facility] today. Per Dr. Emma Wiley patient needs venofer 200mg outpatient infusions tomorrow and Wednesday this week. Message sent to blood management to checkon process. Dr. Wiley requesting epic message be sent to her once she is scheduled to update her. Huong Hagen RN documented in this encounterCenterville09-19-2023 Miscellaneous Notes* Telephone Encounter - Yarelis Hermosillo - 11/10/2022 4:39 PM EDT Please see FIELD MECHANIC/SITE LEAD encounter 11/09 * Telephone Encounter - Jenna Yadav RN - 11/10/2022 10:21 AM EDT Signed treatment plan for Venofer 200 mg IV x 2. PA pending. Provider is requesting scheduling nissa. documented in this encounterCenterville09-18-2023 NoteHNO ID: [id number] Author: Jenna Yadav RN Service: ? Author [...] a provider for review and evaluation for treatment.[facility]09-18-2023 History of Present illness Narrative* Jenna Yadav RN - 11/09/2022 5:51 PM EDT Patient referred [...] and evaluation for treatment. documented in this encounterCenterville09-18-2023 NoteHNO ID: [id number] Author: Minerva Hussein RN Service: Maternal Medicine Author Type: Registered Nurse Type: Procedures Filed: 11/09/2022 12:54 PM Note Text: Attestation signed by Hubert Brito MD at 11/09/2022 4:12 PM Reactive for gestational age sharonda Brito Division of Maternal Medicine [place] OBSTETRICS NST SUMMARY SERVICE DATE: November 09, [...] TIME: 12:52 [facility]09-18-2023 NoteHNO ID: [id number] Author: Emma Wiley MD Service: Obstetrics Author [...] gestation 07/10/2022 Priority: A - Following with MFM in [place] - Has been getting ultrasounds for TTTS [...] and imaging results. SIGNATURE: (more content not included)...[facility]09-18-2023 NoteHNO ID: [id number] Author: Luz Peña RN Service: Nursing Author Type: Registered Nurse Type: Procedures Filed: 11/09/2022 12:14 AM Note Text: Attestation signed by Hubert Brito MD at 11/11/2022 12:21 PM Reactive for gestational age Hubert Brito Division of Maternal Medicine [place] OBSTETRICS NST SUMMARY SERVICE DATE: November 09, [...] Silverman DATE: November 09, 2022 TIME: 12:13 [facility]09-17-2023 NoteHNO ID: [id number] Author: Yuliana Arcos MD Service: Obstetrics Author [...] Discussed with Dr. Ward. Yuliana Arcos MD FIELD MECHANIC/SITE LEAD PGY-2 November 08, 2022 6:32 [facility]09-17-2023 NoteHNO ID: [id number] Author: Abigail Cruz RN Service: Nursing Author [...] NURSE: Start Time: 1210 (11/08/221699 : Abigail Cruz RN) Complete Time: 1230 (11/08/221699 : Abigail Cruz RN) Indications: Patient Reason For: NST Explanation: Acoustic Stimulator: Interventions: MONITORING/ASSESSMENT: Baseline: 145 bpm (11/08/221699 : Abigail Cruz RN) 145 bpm (11/08/221699 : Abigail Cruz RN) Variability: Moderate (6-25 bpm) (11/08/221699 : Abigail Cruz RN) Moderate (6-25 bpm) (11/08/221699 : Abigail Cruz [...] forwarded to Desiree Mayo (11/08/221699 : Abigail Cruz, PAIGE) for final review and interpretation. SIGNATURE: Abigail Cruz RN PATIENT NAME: Keshia Silverman DATE: November 08, 2022 TIME: 5:17 [facility]09-17-2023 NoteHNO ID: [id number] Author: Gerardo Portillo DO Service: Maternal Medicine [...] Overview Note: - consult placed -Betamethasone given 11/05-11/06 -s/p Magnesium for neuroprotection -GBS negative -Daily NST's Monochorionic diamniotic twin gestation 07/10/2022 Overview Note: - Following with [facility] in [place] - Has been getting ultrasounds for TTTS [...] this morning. Keshia (more content not included)... [facility]09-17-2023 NoteHNO ID: [id number] Author: Note, Interface Service: ? Author Type: ? Type: Progress Notes Filed: 11/08/2022 3:08 AM Note Text: Epic Scheduled Downtime: 11/08/2022 1:02:01 AM to 11/08/2022 2:21:01 [facility]09-16-2023 NoteHNO ID: [id number] Author: Wilton Chaney MD Service: Obstetrics Author Type: Physician Type: Procedures Filed: 11/07/2022 9:53 PM Note Text: OBSTETRICS NST SUMMARY SERVICE DATE: November 07, 2022 The patient is a 22 year old female, , who is at 27w0d with an CHRIS of 02/06/2023, by Last Menstrual Period dating method. NST OBJECTIVE FINDINGS PER NURSE: Start Time: 2014 (11/07/222034 : Yasmeen Chen, RN) Complete Time: 2034 (11/07/222034 : Yasmeen Chen, RN) Indications: Patient Reason For: NST Explanation: [...] tracing for this gestational age, broken in spots.[facility]09-16-2023 NoteHNO ID: [id number] Author: Abigail Cruz RN Service: Nursing Author [...] Start Time: 1030 (11/07/22 1030 : Abigail Cruz RN) Complete Time: Indications: Labor (11/07/22 1030 : Abigail Cruz RN) Patient Reason For: labor (11/07/22 1030 : Abigail Cruz RN) NST Explanation: Procedure Explained (11/07/22 1030 : Abigail Cruz RN) Acoustic Stimulator: Interventions: MONITORING/ASSESSMENT: Baseline: 135 bpm (11/07/22 1030 : Abigail Cruz RN) 145 bpm (11/07/22 1030 : Abigail [...] RN) Contractions: Irregular (11/07/22 1030 : Abigail Cruz, RN) Frequency: x1 (11/07/22 1030 : Abigail Cruz, RN) Above information forwarded to Desiree Mayo (11/07/22 1030 : Abigail Cruz, RN) for final review and interpretation. SIGNATURE: Abigail Cruz RN PATIENT NAME: Keshia Silverman DATE: November 07, 2022 TIME: 11:44 [facility]09-16-2023 NoteHNO ID: [id number] Author: Emma Wiley MD Service: Obstetrics Author [...] Monochorionic diamniotic twin gestation 07/10/2022 -Following with [facility] in [place] -Has been getting ultrasounds for TTTS including [...] BP Resp O2 Sat (more content not included)...[facility] 11-07-2022 NoteHNO ID: [id number] Author: Note, Interface Service: ? Author Type: ? Type: Progress Notes Filed: 11/07/2022 5:01 AM Note Text: Epic Scheduled Downtime: 11/07/2022 1:00:00 AM to 11/07/2022 4:45:00 [facility] NoteHNO ID: [id number] Author: Emma Wiley MD Service: Obstetrics Author Type: Resident Type: Progress Notes Filed: 11/06/2022 6:45 AM Note Text: Attestation signed by Hira Drummond DO at 11/06/2022 10:44 PM MFM Attending [...] All of her questions were answered. Hira Drummond DO, MPH 11/06/2022 10:41 PM OBSTETRICS ANTEPARTUM [...] SIGNATURE: Emma Wiley MD PATIENT NAME: Keshia Mirandap DATE: November 06, 2022 TIME: 6:41 [facility] NoteHNO ID: [id number] Author: Milagros Walker APRN.CRNA Service: Anesthesiology Author Type: Nurse Executive Wellness Programs Director Type: Anesthesia Procedure Notes Filed: 11/05/2022 9:36 PM Note Text: ANESTHESIOLOGY PROCEDURE NOTE Epidural Block General Information Procedure Start Time/Medication Administration: 11/05/2022 9:25 PM Patient location during procedure: [facility] room Timeout Performed Pre-procedure: timeout performed Consent Obtained: Yes Patient identity confirmed: arm band and patient Reason for block: labor epidural Staffing REINFORCING STEEL PLACER: Milagros Walker APRN.REINFORCING STEEL PLACER Performed by: SOURAV Preparation Sterility Preparation: hand hygiene performed prior [...] tolerated well without discomfort SIGNATURE: Milagros Walker APRN.REINFORCING STEEL PLACER PATIENT NAME: Keshia Mirandap DATE: November 05, 2022 TIME: 9:35 PM CSN: [id number]09-14-2023 NoteHNO ID: [id number] Author: Yuliana Arcos MD Service: Obstetrics Author Type: Resident Type: Progress Notes Filed: 11/05/2022 8:34 PM Note Text: Called to bedside given increasing patient discomfort with contractions, now 7/10 discomfort and more intense pain/pelvic pressure. SVE repeated, / - unchanged cervical dilation however descent of station. She is considering epidural though will start with Tylenol 1000mg now x1. Reviewed with Dr. Munoz. Will plan to continue given absence of cervical dilation on this exam. If further cervical dilation, will plan to proceed with section. Both Baby A and Baby B continue to be Category I and reactive. Yuliana Arcos MD FIELD MECHANIC/SITE LEAD PGY-2 November 05, 2022 8:28 [facility]09-14-2023 NoteHNO ID: [id number] Author: Yuliana Arcos MD Service: Obstetrics Author [...] weeks and discordant AC/HC. Yuliana Arcos MD FIELD MECHANIC/SITE LEAD PGY-2 November 05, 2022 06:40 [facility]09-14-2023 NoteHNO ID: [id number] Author: Yuliana Arcos MD Service: Obstetrics Author [...] visualized normal cardiac activity. Yuliana Arcos MD FIELD MECHANIC/SITE LEAD PGY-2 November 05, 2022 6:30 [facility]09-14-2023 NoteHNO ID: [id number] Author: Joe Brock, RN Service: Nursing Author Type: Registered Nurse Type: Nursing Progress Note Filed: 11/05/2022 8:49 PM Note Text: Patient gave verbal consent for twins to receive erythromycin and vit k after .[facility]09-14-20[facility] History of Past illness Narrative* Problem [...] Overview: 05/09/21- visualized on TAUS. Pam Yarbrough APRN.EVA Supervision of other high ri sk pregnancies, [...] 01/25/2020 11/05/2022 Overview: 07/09/2022atient was seen at [facility] on June 29 for nausea and vomiting. [...] of this encounter (statuses as of 11/10/2022) [place]09-14-2023 History of Past illness Narrative* Problem Noted [...] at 151. 3 hour ordered. Pam Yarbrough APRN.EVA Nausea and vomiting in 01/25/2020 11/05/2022 Overview: 07/09/2022atient was seen at [facility] on June 29 for nausea and vomiting. [...] U/S closer to 39 weeks. Alejandra Perdomo APRN.EVA Encounter for supervision of normal in teen primigravida, antepartum 04/05/2018 021 Syncope 11/05/2022 Overview: 04/05/18 Has h/o vasovagal syncope. See care everywhere. SW documented as of this encounter (statuses as of 11/10/2022) [place]09-14-2023 History of Past illness Narrative* Problem Noted [...] 01/25/2020 11/05/2022 Overview: 07/09/2022atient was seen at [facility] on June 29 for nausea and vomiting. Currently taking Zofran and this is helping to relieve her symptoms.Dietary considerations discussed . Advised patient to call/come in if she is unable to keep any food or fluids down in a 24-hour period. TKRN History of hypotension 01/25/202005/01 Overview: 02/02/2020 Pt has followed up with PCP. Instructed to increase salt intake. SKYE 01/25/2020Patient was seen by Dr Carlos 01/11 [...] of this encounter (statuses as of 11/10/2022) [place]09-14-2023 History of Past illness Narrative* Problem Noted [...] sk pregnancies, second trimester 04/29/2021 11/05/2022 Overview: 07/09/2022atiarleth delivered her previous child on November 14, [...] 01/25/2020 11/05/2022 Overview: 3Patient was seen at [facility] on June 29 for nausea and vomiting. Currently taking Zofran and this is helping to relieve her symptoms.Dietary considerations discussed . Advised patient to call/come in if she is unable to keep any food or fluids down in a 24-hour period. TKRN History of hypotension 01/25/202005/01 Overview: 02/02/2020 Pt has followed up with PCP. Instructed to increase salt intake. SKYE 01/25/2020Patient was seen by Dr Carlos 01/11 [...] of this encounter (statuses as of 11/12/2022) [place]09-14-2023 History of Past illness Narrative* Problem Noted [...] sk pregnancies, second trimester 04/29/2021 11/05/2022 Overview: 07/09/2022atiarleth delivered her previous child on November 14, [...] 01/25/2020 11/05/2022 Overview: 07/09/2022atient was seen at [facility] on June 29 for nausea and vomiting. Currently taking Zofran and this is helping to relieve her symptoms.Dietary considerations discussed . Advised patient to call/come in if she is unable to keep any food or fluids down in a 24-hour period. TKRN History of hypotension 01/25/202005/01 Overview: 02/02/2020 Pt has followed up with PCP. Instructed to increase salt intake. SKYE 01/25/2020Patient was seen by Dr Carlos 01/11 [...] of this encounter (statuses as of 11/13/2022) [place]09-14-2023 History of Past illness Narrative* Problem Noted [...] 01/25/2020 11/05/2022 Overview: 3Patient was seen at [facility] on June 29 for nausea and vomiting. Currently taking Zofran and this is helping to relieve her symptoms.Dietary considerations discussed . Advised patient to call/come in if she is unable to keep any food or fluids down in a 24-hour period. TKRN History of hypotension 01/25/202005/01 Overview: 02/02/2020 Pt has followed up with PCP. Instructed to increase salt intake. SKYE 01/25/2020Patient was seen by Dr Carlos 01/11 [...] U/S closer to 39 weeks. Alejandra Perdomo APRN.CN Encounter for supervision of normal in teen primigravida, antepartum 04/05/2018 021 Syncope 11/05/2022 Overview: 04/05/18 Has h/o vasovagal syncope. See care everywhere. SW documented as of this encounter (statuses as of 11/13/2022) [place]09-14-2023 History of Past illness Narrative* Problem Noted [...] weeks. Weekly BPP's. Delivery 38-39 weeks. SW 6/30/22- 23.6 weeks gestation. Measuring 3 weeks behind- [...] 01/25/2020 11/05/2022 Overview: 3Patient was seen at [facility] on June 29 for nausea and vomiting. [...] of this encounter (statuses as of 11/27/2022) [place]09-14-2023 History of Past illness Narrative* Problem Noted [...] 01/25/2020 11/05/2022 Overview: 07/09/2022atient was seen at [facility] on June 29 for nausea and vomiting. [...] of this encounter (statuses as of 11/28/2022) [place]09-14-2023 History of Past illness Narrative* Problem Noted [...] 01/25/2020 11/05/2022 Overview: 3Patient was seen at [facility] on June 29 for nausea and vomiting. [...] U/S closer to 39 weeks. Alejandra Perdomo APRN.[facility] Encounter for supervision of normal in teen primigravida, antepartum 04/05/2018 021 Syncope 11/05/2022 Overview: 04/05/18 Has h/o vasovagal syncope. See care everywhere. SW documented as of this encounter (statuses as of 12/01/2022) [place]09-13-2023 NoteHNO ID: [id number] Author: Helena Mcintyre MD Service: Obstetrics Author [...] 04, 2022 TIME: 11:51 AM [facility]AG[phone] Miscellaneous Notes* Telephone Encounter - Yuliana Carlos MD - 11/02/2022 9:55 AM EDT See result note Flagyl sent documented in this encounterCenterville09-07-2023 Miscellaneous Notes* Quick Notes - Yuliana Carlos [...] report pending at time of visit - [place] di twin gestation: Continue TTTS check q 2 weeks and weekly BPP at 32 wks - Cont vaginal progesterone - RTO 2 wks Yuliana Carlos DO documented in this encounterCenterville09-07-2023 Instructions* Patient Instructions* Ev Rivero MA - 10/29/2022 10:42 AM EDT SEQUENTIAL SCREENINGS The [place] offers sequential screenings for women who are [...] testing. It will require an appointment withour diagnostic technician. This is not an ultrasound performed [...] the above symptoms, contact our office at [phone] and ask to speak with anurse. After hours, you can call doctors registry at [phone] OR call [facility] at [phone] ask to have the doctor convention services director paged. If you consider this an emergency, dial 8-2-6 or go to your nearest emergency department. NEED HELP? Are you dealing with a violent or abusive relationship? Are you a victim of rape or sexual assult? Call [facility] ([facility] 24 hour Crisis Hotline: 116.767.3819 or 704-677-0089. MANUAL Your Guide to a Healthy manual is now on-line. Visit [email or web address].org/HealthyPregnancyGuide to download your free copy documented in this encounterCenterville08-24-2023 Miscellaneous Notes* Telephone Encounter - Chapincito Zavala [...] vaginal progesterone. Would like RX sent to [facility] in [place]. Abigail Jurado RN * Telephone Encounter - Chapincito Zavala MD - 10/15/2022 10:[address] Kessler from [facility] contacted me about starting the patient on vaginal progesterone for short cervix and history of delivery. I believe she discussed this with the patient earlier in the . Confirmed patient is comfortable with this and pharmacy and I will send this in for her. Chapincito Zavala MD documented in this encounterCenterville08-23-2023 Miscellaneous Notes* Quick Notes - Chapincito Zavala [...] pepcid. Chapincito Zavala M.D. documented in this encounterCenterville08-23-2023 Instructions* Patient Instructions* Joanne Noguera Ma - 10/14/2022 1:03 PM EDT SEQUENTIAL SCREENINGS The [place] offers sequential screenings for women who are [...] testing. It will require an appointment withour diagnostic technician. This is not an ultrasound performed [...] the above symptoms, contact our office at [phone] and ask to speak with anurse. After hours, you can call doctors registry at [phone] OR call [facility] at [phone] ask to have the doctor convention services director paged. If you consider this an emergency, dial 9-1-9 or go to your nearest emergency department. NEED HELP? Are you dealing with a violent or abusive relationship? Are you a victim of rape or sexual assult? Call [facility] [place] ([facility] 24 hour Crisis Hotline: 423.503.5392 or 233-173-7099. MANUAL Your Guide to a Healthy manual is now on-line. Visit [email or web address].org/HealthyPregnancyGuide to download your free copy documented in this encounterCenterville07-25-2023 NoteHNO ID: [id number] Author: Lauri Kessler MD Service: ? Author [...] Monochorionic diamniotic twin gestat (more content not included)...[facility]07-14-2023 NoteHNO ID: [id number] Author: Usman Ang MD Service: ? Author [...] - PERMETHRIN 5 % TOPICAL CREAM Usman [facility], [facility] History of Present illness Narrative* [...] CREAM Usman Ang MD documented in this encounterCent[place]07-06-2023 Miscellaneous Notes* Quick Notes - Kimani Núñez MD - 08/27/2022 9:21 AM EDT KJ - No VB/LOF. Reports occ mild ctx. Movement: absent. Other c/o: Yes: GI: heartburn Medication list reviewed. Physical Exam See Flow Sheet Gen: no accute distress, well appearing A/P 16w5d Estimated Date of Delivery: 02/06/23 [place]-di twins - reviewed recommendation for every 2 week US GERD - rx pepcid Kimani Núñez MD documented in this encounterCenterville07-06-2023 Instructions* Patient Instructions* Ev Rivero MA - 08/27/2022 8:26 AM EDT SEQUENTIAL SCREENINGS The [place] offers sequential screenings for women who are [...] testing. It will require an appointment withour diagnostic technician. This is not an ultrasound performed [...] the above symptoms, contact our office at [phone] and ask to speak with anurse. After hours, you can call doctors registry at [phone] OR call [facility] at [phone] ask to have the doctor convention services director paged. If you consider this an emergency, dial 5--0 or go to your nearest emergency department. NEED HELP? Are you dealing with a violent or abusive relationship? Are you a victim of rape or sexual assult? Call [facility] ([place]) 24 hour Crisis Hotline: 753.332.9589 or 014-246-3397. MANUAL Your Guide to a Healthy manual is now on-line. Visit [email or web address]/HealthyPregnancyGuide to download your free copy documented in this encounterCenterville06-20-2023 NoteHNO ID: [id number] Author: SHYAM Pereira Service: ? Author Type: Genetic Counselor Type: Progress Notes Filed: 08/11/2022 10:01 PM Note Text: Summary: NIPS Order Change for Twin Gestation Received notification from [employer] that Ms. Silverman's noninvasive screen (NIPS) could [...] OB provider for awareness. Maame Harmon MS, [facility] Licensed Genetic CounselorShelby [facility] Hospital06-20-2023 History of Present illness Narrative* SHYAM Pereira - 08/11/2022 9:56 PM EDTSummary: NIPS Order Change for Twin Gestation Received notification from [employer] that Ms. Sivlerman's noninvasive screen (NIPS) could not be performed [...] OB provider for awareness. Maame Harmon MS, [facility] Licensed Genetic Counselor documented in this encounterCenterville06-13-2023 Miscellaneous Notes* Quick Notes - Kimani Núñez [...] possible. Kimani Núñez MD documented in this encounterCenterville06-13-2023 Instructions* Patient Instructions* Joanne Noguera Ma - 08/04/2022 3:09 PM EDT SEQUENTIAL SCREENINGS The [place] offers sequential screenings for women who are [...] testing. It will require an appointment withour diagnostic technician. This is not an ultrasound performed [...] the above symptoms, contact our office at [phone] and ask to speak with anurse. After hours, you can call doctors registry at [phone] OR call [facility] at [phone] ask to have the doctor convention services director paged. If you consider this an emergency, dial 9-3 or go to your nearest emergency department. NEED HELP? Are you dealing with a violent or abusive relationship? Are you a victim of rape or sexual assult? Call [facility] ([place]) 24 hour Crisis Hotline: 569.374.1357 or 854-292-6010. MANUAL Your Guide to a Healthy manual is now on-line. Visit [email or web address]/HealthyPregnancyGuide to download your free copy documented in this encounterCenterville05-19-2023 NoteHNO ID: [id number] Author: Kimani Núñez MD Service: ? Author Type: Physician Type: Progress Notes Filed: 07/10/2022 12:00 PM Note Text: INITIAL OB ASSESSMENT R&D Lab Technician offered: Patient declines. Obstetric History T1 L3 SAB0 IAB0 Ectopic0 Multiple0 Live Births3 Name of Baby 1: Hugo Date: 05/10/18 GA: 38w4d Delivery: Vaginal, Spontaneous Apgar1: Not recorded Apgar5: Not recorded Living: Living Name of Baby 2: Jose Martin Date: 08/13/20 GA: 36w3d Delivery: Vaginal, Spontaneous Apgar1: 8 Apgar5: 9 Living: Living Name of Baby 3: Emjaswinder Date: 11/14/21 GA: 36w0d Delivery: Vaginal, Spontaneous Apgar1: 8 Apgar5: 9 Living: Living Name of Baby 4: Not recorded Date: Not recorded GA: Not recorded Delivery: Not recorded Apgar1: Not recorded Apgar5: Not recorded Living: Not recorded HPI: Kehsia is a 22 year old White Female here to establish Obstetrical Care. Patient's last menstrual period was 05/02/2022 (exact date). from OB Dating Form. 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 Author [...] Apgar1: None, Apgar5: None, Living: None, Comments: NoneShelby [facility]05-09-2023 Miscellaneous Notes* Telephone Encounter - Bozena Anderson [...] LMP 05/02/22 approximately 8w3d Patient went to [facility] ER yesterday because she was unable [...] too. Abigail Jurado RN documented in this encounterCenterville05-08-2023 Miscellaneous Notes* Telephone Encounter - Chapincito Zavala MD - 06/29/2022 12:52 PM EDT I can see her at 815 tomorrow for this if needed. Thanks. Chapincito Zavala MD * Telephone Encounter - Abigail Jurado RN - 06/29/2022 11:33 AM EDT Received below staff message. LMP 3 8w2d Patient has not been able to [...] at 06/29/2022 10:54 AM EDT ----- Regarding: WHI/TAYLOR/JR Contact: Patient has been identified by name and Date of : Yes Patient: Keshia Silverman Date of : 2000 Provider for this encounter : JR Nix APRN.CNP Reason for call: Triage Was an appointment scheduled: No Reason for requesting visit: -LMP 05-02-2022. PERSISTENT VOMITING Person calling: self Return call to: self Call patient at: on cell [phone] (home) [phone] (work) [phone] (cell) Payor: [place] MEDICAID / Plan: AI [facility] MEDICAID / Product Type: Medicaid / [facility] Rep documented in this encounterCenterville04-11-2023 NoteHNO ID: [id number] Author: Mat Alcala APRN.MICROFICHE CAMERA OPERATOR Service: ? Author Type: Nurse Practitioner Type: [...] PROPIONATE 50 MCG/ACTUATION NASAL SPRAY,SUSPENSION Mat Alcala APRN.[facility]04-11-2023 History of Present illness Narrative* Mat Alcala [...] PROPIONATE 50 MCG/ACTUATION NASAL SPRAY,SUSPENSION Mat Alcala APRN.MICROFICHE CAMERA OPERATOR documented in this encounterCenterville04-06-2023 NoteHNO ID: [id number] Author: Usman Ang MD Service: ? Author [...] fever/chills, or foul tasting drainage. Usman Ang, [facility]04-06-2023 History of Present illness Narrative* [...] drainage. Usman Ang MD documented in this encounterCenterville03-22-2023 Miscellaneous Notes* Telephone Encounter - Meir Nix [...] you. Ewelina Hale LPN documented in this encounterCenterville01-05-2023 History of Present illness Narrative* Meir Nix APRN.DELPHINE - 02/26/2022 2:18 PM EST Chief Complaint [...] tablet Take 1 tablet bymouth once daily. [facility] no.[id number] ( GUMMIES) 400 mcg-35 mg- 25 mg-5 [...] with smaller dose of Adderall. Meir Nix APRN.CNP documented in this encounterCenterville11-02-2022 Instructions* Patient Instructions* Pam Yarbrough APRN.CNM - 12/24/2021 9:28 AM EDT Here are some links for wonderful Providers here in the community and surrounding areas. Do not hesitate to contact their offices, many are offering virtual visits during this time. 1-163-8-SGYX7EURG - [facility] Maternal Mental Health Hotline If you are in suicidal crisis, please call or text 7-916-924-TALK ( ) or visit the National Suicide Prevention Lifeline website. mchb.[facility].gov [facility] Behavioral Health Psychology, Psychiatry, Counseling Connect with therapist/ can do virtual visits [phone] Referral to the [facility] for Women's Behavioral Health To schedule an appointment, please call the [facility] for [facility]al Health Appointment Line: [phone] option 1 Counseling Center - [place], [place] [address] [place], [place] [address] [facility] [address] [place] [address] [facility] [address] [place] [address] [facility] [address] [place], [place] [id number] Christiano Huffman MD [address] [place] [address] [facility] [address] [facility], [address] [place] [address] [facility] [address] [place] [address] [facility] [place] / [place] [phone]/ [phone] Mary Ellen Jaimes [address] [facility] [phone] [facility] Counseling and Mediation [place] / [place] [phone] [facility] [address] [place] [address]/ [place] [phone] Rashad Guzman, NAYA, CLC [facility] Workshops, telehealth and at home visits. [phone] Humanistic counseling center 20 locations [facility], [place], [place], [facility], [place], [place], [place], [place], [place], [place], [place], [place], [place], [place], [place] ,[facility], [place], [place],[facility], south [place], [place], [facility], [place], [place] www.ACKme Networks [phone] Psychotherapy resources outside of [place] are listed below [facility] Psychotherapy Web: https://www.Upower/ Support International Online Provider Directory https://Penny Auction Solutions/ Insight Counseling https://iPixCel/ Partners for Behavioral Health and Wellness Web: https://CPM Braxis/ Stratatech Corporation Effective Living Web: https://AdECN/ LifeStance Web: https://Four Eyes/location/[facility]/[place]/ [facility] Web: https://www.[facility].org/ [facility] Web: https://Pulpo Media.org/ Recovery Resources Mental health and substance abuse help Web: https://www.Captive Medias.Shot & Shop & RESOURCES Support International Direct peer support and connection to professional resources Non-Emergency Helpline Phone: / Text: 545.328.3625 Web: https://www..net/ Online Provider Directory: https://Penny Auction Solutions/ Online Support Meetings: https://www..net/get-help/yua-rpeuos-qukoupv-meetings/ KASEY Baby and Photo Journalist Services Web: https://wwwMagma Global/ NetSol Technologies Expert information on medication use during and Text: [phone] Web: https://mothertobaby.org/ NATIONAL REGISTRY FOR PSYCHIATRIC MEDICATIONS Currently studying the safety of antidepressants, ADHD medications and atypical antipsychotics taken during TO PARTICIPATE CALL TOLL-FREE: Web: https://womensmentalhealth.org/research/pregnancyregistry/ Support Groups: [facility]- Follow on facebook Baby Bistro support group led by [facility] department Resilient Mamas - Support Group [facility].org The POEM support group [phone] Www.poZtoryonline.Shot & Shop Follow on facebook - [place] [facility] Online support meetings PSI https://www..net/get-help/llx-xaljhq-qochsim-meetings/ [facility] mommy and me virtual support group 11:30-1pm Support for mothers and new babies and toddlers [place] childbirth education: Childbirth @[facility].org or call [phone] CRISIS: CRISIS HOTLINE [phone], 911 or go to the nearest ER. [facility] [phone] / [facility] [phone] https://www.[facility].org Crisis text line text the word HOME to [id number] documented in this encounterCenterville11-02-2022 History of Present illness Narrative* Pam Yarbrough APRN.CNM - 12/24/2021 9:04 AM EDT VISIT Keshia Silverman is a 21 year old year old here for visit. Delivery Summary: Patient delivered via by Pam Yarbrough on 11/14/21 at [facility] ROS/ Recovery: Feeding: Breast feeding problems: None Menses since delivery: none Menstrual pattern prior to : Regular periods [place] since delivery: Not resumed Depression: denies symptoms [...] external genitalia normal, normal Bartholin's glands, urethra, [place]'s glands, no vulvar lesions, no cervical lesions, [...] exams Pam Yarbrough APRN.CNM documented in this encounterCenterville09-26-2022 History of Present illness Narrative* Huong Hagen RN - 11/17/2021 10:52 AM EDT Patient delivered via by Dorcas on 11/14/21 at [facility]. See OB history. Huong Hagen RN documented in this encounterCenterville09-23-2022 Miscellaneous Notes* Telephone Encounter - Huong Hagen [...] patient. Pam Yarbrough APRN.CNM documented in this encounterCenterville09-22-2022 Miscellaneous Notes* Addendum Note - Yuliana Carlos [...] visits Yuliana Carlos DO documented in this encounterCenterville09-22-2022 Instructions* Patient Instructions* Joanne Noguera Ma - 11/13/2021 9:25 AM EDT SEQUENTIAL SCREENINGS The [place] offers sequential screenings for women who are [...] testing. It will require an appointment withour diagnostic technician. This is not an ultrasound performed [...] the above symptoms, contact our office at [phone] and ask to speak with anurse. After hours, you can call doctors registry at [phone] OR call [facility] at [phone] ask to have the doctor convention services director paged. If you consider this an emergency, dial 5-2-2 or go to your nearest emergency department. NEED HELP? Are you dealing with a violent or abusive relationship? Are you a victim of rape or sexual assult? Call [facility] ([facility] 24 hour Crisis Hotline: 285.378.4650 or 609-092-4401. MANUAL Your Guide to a Healthy manual is now on-line. Visit [facility].org/HealthyPregnancyGuide to download your free copy documented in this encounterCenterville09-19-2022 Miscellaneous Notes* Telephone Encounter - Bozena Anderson RN - 11/10/2021 12:40 PM EDT Attempted to contact patient but no answer and unable to leave a message as voicemail box is full. Will attempt to contact patient again. Med.lyt message also sent. Bozena Anderson RN * [...] cramping. Bozena Anderson RN documented in this encounterCenterville09-15-2022 History of Present illness Narrative* Kimani Núñez [...] SIGNATURE: Kimani Núñez MD documented in this encounterCenterville09-08-2022 Miscellaneous Notes* Quick Notes - Pam Yarbrough APRN.CNM - 10/30/2021 9:34 AM EDT S: Keshia Silverman is a 21 year old female who presents at 33.6 weeks gestation for a routine visit. Just completed BPP- /, BRIANNA 14. Positive movement. Denies any contractions- [...] ICD9: V23.9, ICD10: O09.93 - Continue weekly [place] injections P: 1) PTL precautions reviewed and when to call 2) RTO 2 weeks or sooner if needed Pam Yarbrough APRN.CNM documented in this encounterCenterville09-08-2022 Instructions* Patient Instructions* Ev Rivero MA - 10/30/2021 9:22 AM EDT SEQUENTIAL SCREENINGS The [place] offers sequential screenings for women who are [...] testing. It will require an appointment withour diagnostic technician. This is not an ultrasound performed [...] the above symptoms, contact our office at [phone] and ask to speak with anurse. After hours, you can call doctors registry at [phone] OR call [facility] at [phone] ask to have the doctor convention services director paged. If you consider this an emergency, dial 5-6-3 or go to your nearest emergency department. NEED HELP? Are you dealing with a violent or abusive relationship? Are you a victim of rape or sexual assult? Call [facility] ([place]) 24 hour Crisis Hotline: 559.409.2661 or 691-572-8761. MANUAL Your Guide to a Healthy manual is now on-line. Visit [email or web address] to download your free copy documented in this encounterCenterville08-25-2022 Miscellaneous Notes* Quick Notes - Kimani Núñez MD - 10/16/2021 9:58 AM EDT KJ - VB No. LOF No. CTXS No. Movement: present. Other c/o: No. Medication list reviewed. Physical Exam See Flow Sheet Gen: no accute distress, well appearing Abd: soft, nontender, gravid A/P 31w6d Estimated Date of Delivery: 12/12/21 IUGR - 7% on US today, await formal recs from [facility] but follow up US ordered. H/o PTD - continue Yuri Anemia - encouraged Fe & Regular PNV use PTL precautions reviewed, Kick counts reviewed. Kimani Núñez MD documented in this encounterCenterville08-25-2022 Instructions* Patient Instructions* Opal Hughes Ma - 10/16/2021 9:09 AM EDT SEQUENTIAL SCREENINGS The [facility] offers sequential screenings for women who are [...] testing. It will require an appointment withour diagnostic technician. This is not an ultrasound performed [...] the above symptoms, contact our office at [phone] and ask to speak with anurse. After hours, you can call doctors registry at [phone] OR call [facility] at [phone] ask to have the doctor convention services director paged. If you consider this an emergency, dial 9-4-5 or go to your nearest emergency department. NEED HELP? Are you dealing with a violent or abusive relationship? Are you a victim of rape or sexual assult? Call [facility] ([place]) 24 hour Crisis Hotline: 740.412.9445 or 014-591-7965. MANUAL Your Guide to a Healthy manual is now on-line. Visit [email or web address] to download your free copy documented in this encounterCenterville08-11-2022 Miscellaneous Notes* Quick Notes - Pam Yarbrough [...] iron every other day and still receiving Am[place] injections weekly. O: See flow sheet Gen: [...] needed Pam Yarbrough APRN.CNM documented in this encounterCenterville08-11-2022 Instructions* Patient Instructions* Pam Yarbrough APRN.CNM - 10/02/2021 9:18 AM EDT Zyrtec 10 mg PO daily or Claritin daily for allergies SEQUENTIAL SCREENINGS The [facility] offers sequential screenings for women who are [...] testing. It will require an appointment withour diagnostic technician. This is not an ultrasound performed [...] the above symptoms, contact our office at [phone] and ask to speak with anurse. After hours, you can call doctors registry at [phone] OR call [facility] at [phone] ask to have the doctor convention services director paged. If you consider this an emergency, dial 9-1-4 or go to your nearest emergency department. NEED HELP? Are you dealing with a violent or abusive relationship? Are you a victim of rape or sexual assult? Call [facility] ([place]) 24 hour Crisis Hotline: 334.782.5201 or 917-664-2995. MANUAL Your Guide to a Healthy manual is now on-line. Visit [email or web address] to download your free copy documented in this encounterCenterville08-02-2022 Miscellaneous Notes* Telephone Encounter - Abigail Jurado [...] LOF , or VB. Spoke with provider convention services director, CP. Patient was advised that she could go to L&D for reassurance if she wanted. Patient states getting evaluated would make her feel better. Updated H&P sent to L&D and notified. Abigail Jurado RN documented in this encounterCenterville07-28-2022 Miscellaneous Notes* Quick Notes - Yuliana Carlos [...] wks Yuliana Carlos DO documented in this encounterCenterville07-28-2022 History of Present illness Narrative* Joanne Noguera [...] severely ill: Yes Patient denies history of Guillain-Clarklake Syndrome (a severe paralytic illness): Yes Tdap Adacel injection was given without incident. See immunizations for details of immunizations administered today. VIS sheet provided: Yes Provider Dr Carlos was present in office at time of injection. Joanne Noguera Ma documented in this encounterCenterville07-28-2022 Instructions* Patient Instructions* Joanne Noguera Ma - 09/18/2021 10:52 AM EDT SEQUENTIAL SCREENINGS [facility] offers sequential screenings for women who are [...] testing. It will require an appointment withour diagnostic technician. This is not an ultrasound performed [...] the above symptoms, contact our office at [phone] and ask to speak with anurse. After hours, you can call doctors registry at [phone] OR call [facility] at [phone] ask to have the doctor convention services director paged. If you consider this an emergency, dial 6-6-2 or go to your nearest emergency department. NEED HELP? Are you dealing with a violent or abusive relationship? Are you a victim of rape or sexual assult? Call [facility] ([place]) 24 hour Crisis Hotline: 115.994.5689 or 576-194-8581. MANUAL Your Guide to a Healthy manual is now on-line. Visit [email or web address] to download your free copy documented in this encounterCenterville06-30-2022 History of Past illness Narrative* Problem Noted [...] of this encounter (statuses as of 08/05/2022) [facility] History of Past illness Narrative* Problem Noted [...] of this encounter (statuses as of 08/12/2022) [facility] History of Past illness Narrative* Problem Noted [...] of this encounter (statuses as of 08/27/2022) [place] History of Past illness Narrative* Problem Noted [...] of this encounter (statuses as of 08/28/2022) [facility] History of Past illness Narrative* Problem Noted [...] of this encounter (statuses as of 09/04/2022) [facility] History of Past illness Narrative* Problem Noted [...] of this encounter (statuses as of 09/10/2022) [facility] History of Past illness Narrative* Problem Noted [...] of this encounter (statuses as of 10/01/2022) [facility] History of Past illness Narrative* Problem Noted [...] of this encounter (statuses as of 10/07/2022) [facility]20[place] History of Past illness Narrative* Problem Noted Date Diagnosed Date Resolved Date Poor growth affecting management of mother in third trimester 08/21/2021 07/10/2022 Overview: EFW 6% at 34 weeks. Weekly BPP's. Delivery 38-39 weeks. SW 08/21/21- 23.6 weeks gestation. Measuring 3 weeks behind- will continue to monitor. Pam aYrbrough APRN.CNM Subchorionic hematoma in first trimester 05/09/2021 [...] of this encounter (statuses as of 10/14/2022) [facility]30[facility] History of Past illness Narrative* Problem Noted Date Diagnosed Date Resolved Date Poor growth affecting management of mother in third trimester 08/21/2021 07/10/2022 Overview: EFW 6% at 34 weeks. Weekly BPP's. Delivery 38-39 weeks. 08/21/21- 23.6 weeks gestation. Measuring 3 weeks behind- will continue to monitor. Pam Yarbrough APRN.CNM Subchorionic hematoma in first trimester 05/09/2021 07/10/2022 Overview: 05/09/21- visualized on TAUS. Pam Yarbrough APRN.JESSICAM on oral contraceptive 04/29/2021 07/10/2022 Overview: 04/29/2021This [...] of this encounter (statuses as of 10/15/2022) [facility] History of Past illness Narrative* Problem Noted [...] of this encounter (statuses as of 10/15/2022) [facility] History of Past illness Narrative* Problem Noted [...] of this encounter (statuses as of 10/29/2022) [facility] History of Past illness Narrative* Problem Noted [...] of this encounter (statuses as of 10/30/2022) [facility]20[facility] History of Past illness Narrative* Problem Noted [...] of this encounter (statuses as of 11/02/2022) [facility]20[facility] History of Past illness Narrative* Problem Noted [...] of normal in teen primigravida, antepartum 04/05/2018 06/10/2 021 documented as of this encounter (statuses as of 11/03/2022) [facility]-30-2022 Miscellaneous Notes* Quick Notes - Pam Yarbrough [...] needed Pam Yarbrough APRN.CNM documented in this encounterCenterville06-30-2022 Instructions* Patient Instructions* Zuri Hennessy MA - 08/21/2021 9:49 AM EDT SEQUENTIAL SCREENINGS The [facility] offers sequential screenings for women who are [...] testing. It will require an appointment withour diagnostic technician. This is not an ultrasound performed [...] the above symptoms, contact our office at [phone] and ask to speak with anurse. After hours, you can call doctors registry at [phone] OR call [facility] at [phone] ask to have the doctor convention services director paged. If you consider this an emergency, dial 9-1- or go to your nearest emergency department. NEED HELP? Are you dealing with a violent or abusive relationship? Are you a victim of rape or sexual assult? Call [facility] ([place]) 24 hour Crisis Hotline: 989.155.9923 or 979-485-7999. MANUAL Your Guide to a Healthy manual is now on-line. Visit [email or web address] to download your free copy documented in this encounterCenterville06-27-2022 Miscellaneous Notes* Telephone Encounter - Yuliana Carlos [...] up in 3 weeks documented in this encounterCenterville06-22-2022 Miscellaneous Notes* Telephone Encounter - Abigail Jurado RN - 08/13/2021 4:40 PM EDT Linked to appointment * Telephone Encounter - Yuliana Carlos MD - 08/13/2021 4:39 PM EDT filed * Telephone Encounter - Abigail Jurado RN - 08/13/2021 4:31 PM EDT Please file pending US order for follow-up anatomy. Thank you. documented in this encounterCenterville06-02-2022 Miscellaneous Notes* Quick Notes - Yuliana Carlos [...] wks Yuliana Carlos DO documented in this encounterCenterville06-02-2022 Instructions* Patient Instructions* Ev Rivero MA - 07/24/2021 1:50 PM EDT SEQUENTIAL SCREENINGS The [facility] offers sequential screenings for women who are [...] testing. It will require an appointment withour diagnostic technician. This is not an ultrasound performed [...] the above symptoms, contact our office at [phone] and ask to speak with anurse. After hours, you can call doctors registry at [phone] OR call [facility] at [phone] ask to have the doctor convention services director paged. If you consider this an emergency, dial 9-1-1 or go to your nearest emergency department. NEED HELP? Are you dealing with a violent or abusive relationship? Are you a victim of rape or sexual assult? Call [facility] ([place]) 24 hour Crisis Hotline: 772.340.7113 or 231-916-9678. MANUAL Your Guide to a Healthy manual is now on-line. Visit [email or web address] to download your free copy documented in this encounterCenterville05-12-2022 Miscellaneous Notes* Quick Notes - Yuliana Carlos [...] after Yuliana Carlos DO documented in this encounterCenterville05-12-2022 Instructions* Patient Instructions* Ev Rivero MA - 07/03/2021 2:44 PM EDT SEQUENTIAL SCREENINGS The [facility] offers sequential screenings for women who are [...] testing. It will require an appointment withour diagnostic technician. This is not an ultrasound performed [...] the above symptoms, contact our office at [phone] and ask to speak with anurse. After hours, you can call doctors registry at [phone] OR call [facility] at [phone] ask to have the doctor convention services director paged. If you consider this an emergency, dial -- or go to your nearest emergency department. NEED HELP? Are you dealing with a violent or abusive relationship? Are you a victim of rape or sexual assult? Call [facility] ([place]) 24 hour Crisis Hotline: 124.212.7194 or 744-808-1484. MANUAL Your Guide to a Healthy manual is now on-line. Visit [email or web address] to download your free copy documented in this encounterCenterville05-04-2022 Miscellaneous Notes* Telephone Encounter - Alejandra Perdomo [...] and she's been drinking water. See 06/18/21 Connexienthart message. Patient states she still continues to feel that she can not take a deep enough breath. Denies chest pain or tightness. Per RR message to patient in mychart message, patient to go to ER for worsening symptoms or if she passes out. Patient plans to go to [facility] ER. ARMANDO Jurado RN documented in this encounterCenterville04-27-2022 Miscellaneous Notes* Telephone Encounter - Dara Beauchamp RN - 06/18/2021 2:24 PM EDT Hgb 12.2 2 weeks ago . Last seen 06/05/2021. Patient called back. Denies anxiety . No other symptoms except for occasional palpitations. Symptoms were not relieved by eating. States she is eating small frequent meals. Patient offered appt today. Would like to have Dr Zavala view Compressushart message and see what her thoughts are. She is aware that we may send her to PCP for evaluation documented in this encounterCenterville04-25-2022 Miscellaneous Notes* Telephone Encounter - Lolis Gusman - 06/16/2021 1:44 PM EDT Patient owes $175.00 out of pocket 60 Min/GA/Main with Benjamin Josefa documented in this [id number] Miscellaneous Notes* Quick Notes - Kimani Núñez [...] today with sequential H/o PTD - start Amada [place]res at 16 weeks Start iron in addition to gummy Kimani Núñez MD documented in this encounterCenterville04-14-2022 History of Present illness Narrative* Huong Hagen RN - 06/05/2021 9:29 AM EDT Patient here for First Trimester Screening. See ultrasound report for details. Options for genetic screening and diagnosis discussed with the patient. Patient opts for first trimester screening and the sequential screening protocol. Limitations of screening tests discussed withthe patient. Kimani Núñez MD documented in this encounterThomas Ville [address]-14-2022 Instructions* Patient Instructions* Opal Hughes Ma - 06/05/2021 9:22 AM EDT SEQUENTIAL SCREENINGS The [facility] offers sequential screenings for women who are [...] testing. It will require an appointment withour diagnostic technician. This is not an ultrasound performed [...] the above symptoms, contact our office at [phone] and ask to speak with anurse. After hours, you can call doctors registry at [phone] OR call [facility] at [phone] ask to have the doctor convention services director paged. If you consider this an emergency, dial 9-1-1 or go to your nearest emergency department. NEED HELP? Are you dealing with a violent or abusive relationship? Are you a victim of rape or sexual assult? Call [facility] ([facility] 24 hour Crisis Hotline: 661.439.8289 or 156-835-5122. MANUAL Your Guide to a Healthy manual is now on-line. Visit [email or web address] to download your free copy SEQUENTIAL TESTING PROCESS Sequential Screen First Trimester Today you are currently: 12w6d weeks 06/05/2021: Ultrasound and blood test. Sequential Screen Second Trimester (16-17 Weeks Gestation) When you are called with your results, the nurse will give the optimal draw dates for the Sequential screen second trimester. Blood testing can be done at any [facility] lab. Please report to the any director of strategic communications office front desk clerk for the Sequential Part [...] medicine office, for east side please call [phone] or for the West side call [phone] and ask for the the nurse. Thank you. documented in this encounterCenterville04-30-2021 History of Past illness Narrative* Problem Noted [...] of this encounter (statuses as of 06/05/2021) [facility]21 History of Past illness Narrative* Problem Noted [...] of this encounter (statuses as of 06/05/2021) [facility]30-2021 History of Past illness Narrative* Problem Noted [...] of this encounter (statuses as of 06/18/2021) [facility]30[facility]2021 History of Past illness Narrative* Problem Noted [...] of this encounter (statuses as of 06/25/2021) [facility]30-2021 History of Past illness Narrative* Problem Noted Date Resolved Date Elevated glucose 06/21/2020 05/01/2021 Overview: 5/6/21- 3 hour GTT normal. Pam Yarbrough APRN.CNM [...] of this encounter (statuses as of 07/03/2021) [facility]30-2021 History of Past illness Narrative* Problem Noted [...] of this encounter (statuses as of 07/24/2021) [facility]20[facility] History of Past illness Narrative* Problem Noted [...] of this encounter (statuses as of 07/24/2021) [facility]20[facility] History of Past illness Narrative* Problem Noted [...] of this encounter (statuses as of 08/13/2021) [facility]20[facility] History of Past illness Narrative* Problem Noted [...] of this encounter (statuses as of 08/14/2021) [facility]20[facility] History of Past illness Narrative* Problem Noted [...] of this encounter (statuses as of 08/18/2021) [facility]20[facility] History of Past illness Narrative* Problem Noted [...] of this encounter (statuses as of 08/21/2021) [facility]30-2021 History of Past illness Narrative* Problem Noted Date Resolved Date Elevated glucose 06/21/2020 05/01/2021 Overview: 5/21- 3 hour GTT normal. Pam Yarbrough APRN.CNM [...] of this encounter (statuses as of 09/18/2021) [facility]30-2021 History of Past illness Narrative* Problem Noted Date Resolved Date Elevated glucose 06/21/2020 05/01/2021 Overview: 521- 3 hour GTT normal. Pam Yarbrough APRN.CNM [...] of this encounter (statuses as of 09/23/2021) [facility]2021 History of Past illness Narrative* Problem Noted [...] of this encounter (statuses as of 10/02/2021) [facility]20[facility] History of Past illness Narrative* Problem Noted [...] of this encounter (statuses as of 10/16/2021) [facility]30-2021 History of Past illness Narrative* Problem Noted [...] growth U/S closer to 39 weeks. Alejandra ePrdomo APRN.CNM Encounter for supervision of normal in teen primigravida, antepartum 04/05/2018 08/01/2020 documented as of this encounter (statuses as of 10/16/2021) [facility] History of Past illness Narrative* Problem Noted [...] of this encounter (statuses as of 10/23/2021) [facility]2021 History of Past illness Narrative* Problem Noted [...] of this encounter (statuses as of 10/30/2021) [facility]30-2021 History of Past illness Narrative* Problem Noted [...] growth U/S closer to 39 weeks. Alejandra ePrdomo APRN.CNM Encounter for supervision of normal in teen primigravida, antepartum 04/05/2018 08/01/2020 documented as of this encounter (statuses as of 10/30/2021) [facility]20[facility] History of Past illness Narrative* Problem Noted [...] of this encounter (statuses as of 11/06/2021) [facility]2021 History of Past illness Narrative* Problem Noted [...] of this encounter (statuses as of 11/06/2021) [facility]20[facility] History of Past illness Narrative* Problem Noted [...] of this encounter (statuses as of 11/10/2021) [facility]20[facility] History of Past illness Narrative* Problem Noted [...] of this encounter (statuses as of 11/13/2021) [facility]20[facility] History of Past illness Narrative* Problem Noted [...] of this encounter (statuses as of 11/13/2021) [facility]2021 History of Past illness Narrative* Problem Noted [...] of this encounter (statuses as of 11/14/2021) [facility]2021 History of Past illness Narrative* Problem Noted [...] of this encounter (statuses as of 11/17/2021) [facility]20[facility] History of Past illness Narrative* Problem Noted [...] of this encounter (statuses as of 12/24/2021) [facility]2021 History of Past illness Narrative* Problem Noted Date Resolved Date Elevated glucose 06/21/2020 05/01/2021 Overview: 06/27/20- 3 hour GTT normal. Pam aYrbrough APRN.CNM 06/21/20- Elevated 1 hour at 151. [...] of this encounter (statuses as of 03/02/2022) [facility] History of Past illness Narrative* Problem Noted [...] of this encounter (statuses as of 05/13/2022) [facility]20[facility] History of Past illness Narrative* Problem Noted [...] of this encounter (statuses as of 05/28/2022) [facility]20[facility] History of Past illness Narrative* Problem Noted [...] of this encounter (statuses as of 06/03/2022) [facility]20[facility] History of Past illness Narrative* Problem Noted [...] of this encounter (statuses as of 06/30/2022) [facility]20[facility] History of Past illness Narrative* Problem Noted [...] of this encounter (statuses as of 07/01/2022) [facility]* Diagnosis Supervision of other normal , antepartum- Primary 12 weeks gestation of state, incidental Encounter for screening of mother Unspecified screening documented in this encounter [facility]* Diagnosis Encounter for (NT) nuchal translucency scan- Primary Other specified screening 12 weeks gestation of state, incidental [facility]* Diagnosis 16 weeks gestation of - Primary state, incidental Supervision of other normal , antepartum documented in this encounter [facility]* Diagnosis Encounter for anatomic survey- Primary 19 weeks gestation of state, incidental [facility] of delivery [facility] Diagnosis 19 weeks gestation of - Primary state, incidental Supervision of other normal , antepartum documented in this [facility]* Diagnosis Encounter for follow-up ultrasound of anatomy- Primary [facility] Diagnosis Encounter for anatomic survey- Primary 22 weeks gestation of state, incidental [facility] Diagnosis 24 weeks gestation of - Primary state, incidental Uterine size-date discrepancy, second trimester [facility]* Diagnosis Encounter for follow-up ultrasound of anatomy- Primary 23 weeks gestation of state, incidental [facility] in [facility]* Diagnosis 27 weeks gestation of - Primary state, incidental Supervision of high risk in second trimester Unspecified high-risk Need for vaccination Need for prophylactic vaccination and inoculation against unspecified single disease Request for sterilization Uterine size-date discrepancy, third trimester [facility]* Diagnosis 29 weeks gestation of - Primary state, incidental Anemia complicating , third trimester Heartburn during in third trimester Uterine size-date discrepancy, third trimester [facility]* Diagnosis IUGR (intrauterine growth restriction) affecting care of mother, third trimester, fetus 1- Primary 31 weeks gestation of state, incidental [facility]* Diagnosis Supervision of high risk in third trimester- Primary Unspecified high-risk 31 weeks gestation of state, incidental Poor growth affecting management of mother in first trimester, single or unspecified fetus [facility]* Diagnosis IUGR (intrauterine growth restriction) affecting care of mother, third trimester, fetus 1- Primary 32 weeks gestation of state, incidental [facility]* Diagnosis Poor growth affecting management of mother in third trimester, single or unspecified fetus- Primary 33 weeks gestation of state, incidental [facility]* Diagnosis 33 weeks gestation of - Primary state, incidental Supervision of high risk in third trimester Unspecified high-risk Poor growth affecting management of mother in third trimester, single or unspecified fetus [facility] Diagnosis Poor growth affecting management of mother in first trimester, single or unspecified fetus- Primary documented [facility] this [facility]* Diagnosis Intrauterine growth restriction (IUGR) affecting care of mother, third trimester, single gestation- Primary 34 weeks gestation of state, incidental [facility]* Diagnosis Poor growth affecting management of mother in first trimester, single or unspecified fetus- Primary 35 weeks gestation of state, incidental Poor growth affecting management of mother in third trimester, single or unspecified fetus [facility]* Diagnosis Poor growth affecting management of mother in third trimester, single or unspecified fetus- Primary 35 weeks gestation of state, incidental [facility]* Diagnosis care and examination- Primary Routine follow-up Anxiety Anxiety state, unspecified care and examination of lactating mother [facility]* Diagnosis Concentration deficit- Primary Attention or concentration deficit Oral contraceptive pill surveillance Surveillance of previously prescribed contraceptive pill [facility]* Diagnosis Concentration deficit Attention or concentration deficit documented [facility]* Diagnosis Pain, dental- Primary Unspecified disorder of the teeth and supporting structures [facility]* Diagnosis Bacterial sinusitis- Primary Unspecified sinusitis (chronic) [facility]* Diagnosis 13 weeks gestation of - Primary state, incidental Short interval between pregnancies affecting , antepartum Twin gestation in first trimester, unspecified multiple gestation type Monochorionic diamniotic twin , antepartum Twin , antepartum [facility]* Diagnosis 16 weeks gestation of - Primary state, incidental Short interval between pregnancies affecting , antepartum Monochorionic diamniotic twin , antepartum Twin , antepartum [facility]* Diagnosis Monochorionic diamniotic twin , antepartum- Primary Twin , antepartum 16 weeks gestation of state, incidental [facility]* Diagnosis Exposure to scabies- Primary Contact with or exposure to other communicable diseases [facility]* Diagnosis Monochorionic diamniotic twin , antepartum- Primary Twin , antepartum 18 weeks gestation of state, incidental [facility]* Diagnosis Monochorionic diamniotic twin , antepartum Twin , antepartum [facility]* Diagnosis Monochorionic diamniotic twin , antepartum- Primary Twin , antepartum 22 weeks gestation of state, incidental History of delivery, currently with history of pre-term labor [facility]* Diagnosis Monochorionic diamniotic twin in second trimester- Primary Twin , antepartum 23 weeks gestation of state, incidental History of delivery, currently with history of pre-term labor Supervision of other high risk pregnancies, second trimester Dyspepsia Dyspepsia and other specified disorders of function of stomach [facility]* Diagnosis Monochorionic diamniotic twin , antepartum- Primary Twin , antepartum History of delivery 23 weeks gestation of state, incidental [facility]* Diagnosis Monochorionic diamniotic twin in second trimester- Primary Twin , antepartum Supervision of other high risk pregnancies, second trimester 25 weeks gestation of state, incidental [facility]* Diagnosis 25 weeks gestation of - Primary state, incidental Monochorionic diamniotic twin in second trimester Twin , antepartum Vaginal itching Pruritus of genital organs [facility]* Diagnosis BV (bacterial vaginosis)- Primary Vaginitis and vulvovaginitis, unspecified [facility]* Diagnosis Monochorionic diamniotic twin , antepartum Twin , antepartum Supervision of other high risk pregnancies, second trimester [facility]* Diagnosis Monochorionic diamniotic twin gestation in second trimester- Primary 27 weeks gestation of state, incidental [facility]* Diagnosis Maternal iron deficiency anemia complicating , second trimester Impaired intestinal absorption Unspecified intestinal malabsorption [facility]* Diagnosis Monochorionic diamniotic twin in second trimester- Primary Twin , antepartum Anemia during in second trimester [facility]* Diagnosis Monochorionic diamniotic twin in second trimester- Primary Twin , antepartum Anemia during in second trimester 27 weeks gestation of state, incidental Need for vaccination Need for prophylactic vaccination and inoculation against unspecified single disease Need for Tdap vaccination Need for prophylactic vaccination with combined tkjejuqbos-ulqottn-slknlxmve (DTP) vaccine documented [facility]* Diagnosis Monochorionic diamniotic twin in third trimester- Primary Twin , antepartum 29 weeks gestation of state, incidental History of delivery, currently with history of pre-term labor [facility]* Diagnosis Monochorionic diamniotic twin in second trimester- Primary Twin , antepartum Supervision of other high risk pregnancies, second trimester 29 weeks gestation of state, incidental [facility]* Diagnosis Abnormal glucose complicating - Primary Abnormal maternal glucose tolerance, complicating , childbirth, or the puerperium, unspecified as to episode of care [facility]* Diagnosis Maternal care for (suspected) abnormality and damage, unspecified, fetus 1 [O35.9XX1]- Primary [facility]* Diagnosis Monochorionic diamniotic twin gestation in third trimester- Primary [facility]* Diagnosis Monochorionic diamniotic twin gestation in third trimester- Primary 31 weeks gestation of state, incidental [facility]* Diagnosis Monochorionic diamniotic twin gestation in third trimester- Primary Supervision of other high risk pregnancies, second trimester 31 weeks gestation of state, incidental [facility]* Diagnosis Monochorionic diamniotic twin gestation in third trimester- Primary 32 weeks gestation of state, incidental [facility]* Diagnosis NST (non-stress test) reactive on surveillance- Primary Other specified screening Monochorionic diamniotic twin gestation in third trimester documented in this encounter [facility] note* Diagnosis Monochorionic diamniotic twin gestation in third trimester- Primary Polyhydramnios, third trimester, fetus 2 Supervision of high risk in third trimester Unspecified high-risk History of delivery, currently with history of pre-term labor 33 weeks gestation of state, incidental documented in this encounter [facility] note* Diagnosis Fever, unspecified fever cause- Primary documented in this encounter [facility] for referral (narrative)* Diagnostic Procedure Only (Routine) - Authorized Specialty Diagnoses / Procedures Referred By Sylvester hernandez Referred To Contact [facility] Diagnoses 16 weeks gestation of Supervision of other normal , antepartum Procedures OBSTETRIC ULTRASOUND WHI US PREG UTERUS AFTER 1ST TRIMEST GESTATION Yuliana Carlos MD [address] [place] [address] [address] [address] [address] Referral ID Status Reason Start Date Expiration Date Visits Requested Visits Authorized [id number] Authorized Auto-Generat ed Referral 07/03/2021 07/03/2022 1 1 [facility] for referral (narrative)* Diagnostic Procedure Only (Routine) - Authorized Specialty Diagnoses / Procedures Referred By Sylvester hernandez Referred To Contact [facility] Diagnoses Encounter for follow-up ultrasound of anatomy Procedures OBSTETRIC ULTRASOUND WHI US PREG UTERUS AFTER 1ST TRIMEST GESTATION Yuliana Carlos MD [address] [place] [address] [address] Referral ID Status Reason Start Date Expiration Date Visits Requested Visits Authorized [id number] Authorized Auto-Generat ed Referral 08/13/2021 08/13/2022 1 1 [facility] for referral (narrative)* Diagnostic Procedure Only (Routine) - Pending Review Specialty Diagnoses / Procedures Referred By Contac t Referred To Contact [facility] Diagnoses Encounter for follow-up ultrasound of anatomy Procedures OBSTETRIC ULTRASOUND WHI US PREG UTERUS AFTER 1ST TRIMEST GESTATION Yuliana Carlos MD [address] [place] [address] [facility] [place] [address] Referral ID Status Reason Start Date Expiration Date Visits Requested Visits Authorized [id number] Pending Review Auto-Generat ed Referral 08/18/2021 08/18/2022 1 1 [facility] for referral (narrative)* Diagnostic Procedure Only (Routine) - Pending Review Specialty Diagnoses / Procedures Referred By Contac t Referred To Contact [facility] Diagnoses Uterine size-date discrepancy, third trimester Procedures OBSTETRIC ULTRASOUND WHI US PREG UTERUS AFTER 1ST TRIMEST GESTATION Yuliana Carlos MD [address] [place] [address] [facility] [address] [place] [address] Referral ID Status Reason Start Date Expiration Date Visits Requested Visits Authorized [id number] Pending Review Auto-Generat ed Referral 09/18/2021 09/18/2022 1 1 T [facility] for referral (narrative)* Diagnostic Procedure Only (Routine) - Authorized Specialty Diagnoses / Procedures Referred By Contac t Referred To Contact [facility] Diagnoses 29 weeks gestation of Procedures OBSTETRIC ULTRASOUND WHI US PREG UTERUS AFTER 1ST TRIMEST GESTATION Pam Yarbrough APRN.EVA [address] [place] [address] [facility] [address] [place] [address] Referral ID Status Reason Start Date Expiration Date Visits Requested Visits Authorized [id number] Authorized Auto-Generat ed Referral 10/02/2021 10/02/2022 1 1 [facility] for referral (narrative)* Diagnostic Procedure Only (Routine) - Authorized Specialty Diagnoses / Procedures Referred By Contac t Referred To Contact [facility] Diagnoses 31 weeks gestation of Poor growth affecting management of mother in first trimester, single or unspecified fetus Procedures OBSTETRIC ULTRASOUND WHI US PREG UTERUS AFTER 1ST TRIMEST GESTATION Kimani Núñez MD [address] [place] [address] [address] Referral ID Status Reason Start Date Expiration Date Visits Requested Visits Authorized [id number] Authorized Auto-Generat ed Referral 10/16/2021 10/16/2022 1 1 * Diagnostic Procedure Only (Routine) - Pending Review Specialty Diagnoses / Procedures Referred By Contac t Referred To Contact [facility] Diagnoses 31 weeks gestation of Poor growth affecting management of mother in first trimester, single or unspecified fetus Procedures OBSTETRIC ULTRASOUND WHI US PREG UTERUS AFTER 1ST TRIMEST GESTATION Kimani Núñez MD [address] [address] [facility] [address] [place] [address] Referral ID Status Reason Start Date Expiration Date Visits Requested Visits Authorized [id number] Pending Review Auto-Generat ed Referral 10/16/2021 10/16/2022 1 1 [facility] for referral (narrative)* Diagnostic Procedure Only (Routine) - Authorized Specialty Diagnoses / Procedures Referred By Contac t Referred To Contact [facility] Diagnoses 13 weeks gestation of Monochorionic diamniotic twin , antepartum Procedures OBSTETRIC ULTRASOUND WHI US PREG UTERUS AFTER 1ST TRIMEST GESTATION Kimani Núñez MD [address] [place] [address] [facility] [address] [place] [address] Referral ID Status Reason Start Date Expiration Date Visits Requested Visits Authorized [id number] Authorized Auto-Generat ed Referral 08/04/2022 08/04/2023 1 1 * Consult, Test, Treat (Routine) - Authorized Specialty Diagnoses / Procedures Referred By Contac t Referred To Contact Diagnoses 13 weeks gestation of Short interval between pregnancies affecting , antepartum Twin gestation in first trimester, unspecified multiple gestation type Procedures CONSULT TO MATERNAL MEDI OFFICE/OUTPATIENT PENDING SALE TO [facility] MDM 60-74 MINUTES Kimani Núñez MD [address] [place] [address] Referral ID Status Reason Start Date Expiration Date Visits Requested Visits Authorized [id number] Authorized PCP Requested Referral Auto-Generate d Referral 08/04/2022 08/04/2023 1 1 * Diagnostic Procedure Only (Routine) - Pending Review Specialty Diagnoses / Procedures Referred By Contac t Referred To Contact [facility] Diagnoses 13 weeks gestation of Short interval between pregnancies affecting , antepartum Twin gestation in first trimester, unspecified multiple gestation type Procedures OBSTETRIC ULTRASOUND WHI US PREG UTERUS AFTER 1ST TRIMEST GESTATION Kimani Núñez MD [address] [place] [address] [facility] [address] [place] [address] Referral ID Status Reason Start Date Expiration Date Visits Requested Visits Authorized [id number] Pending Review Auto-Generat ed Referral 08/04/2022 08/04/2023 1 1 [facility] for referral (narrative)* Diagnostic Procedure Only (Routine) - Authorized Specialty Diagnoses / Procedures Referred By Contac t Referred To Contact [facility] Diagnoses Monochorionic diamniotic twin , antepartum Procedures OBSTETRIC ULTRASOUND WHI US PREG UTERUS AFTER 1ST TRIMEST GESTATION Kimani Núñez MD [address] [place] [address] [id number] [place] [address] Referral ID Status Reason Start Date Expiration Date Visits Requested Visits Authorized [id number] Authorized Auto-Generat ed Referral 08/27/2022 08/27/2023 10 1 [facility] for referral (narrative)* Diagnostic Procedure Only (Routine) - Authorized Specialty Diagnoses / Procedures Referred By Contac t Referred To Contact [facility] Diagnoses Monochorionic diamniotic twin in second trimester 23 weeks gestation of History of delivery, currently Supervision of other high risk pregnancies, second trimester Procedures OBSTETRIC ULTRASOUND WHI US PREG UTERUS AFTER 1ST TRIMEST GESTATION Chapincito Zavala MD [address] [place] [address] [facility] [address] [place] [address] Referral ID Status Reason Start Date Expiration Date Visits Requested Visits Authorized [id number] Authorized Auto-Generat ed Referral 10/14/2022 10/14/2023 12 1 [facility] for referral (narrative)* Diagnostic Procedure Only (Routine) - Authorized Specialty Diagnoses / Procedures Referred By Contac t Referred To Contact [facility] Diagnoses Monochorionic diamniotic twin gestation in third trimester Procedures OBSTETRIC ULTRASOUND WHI US PREG UTERUS AFTER 1ST TRIMEST GESTATION Kimani Núñez MD [address] [place] [address] [address] Referral ID Status Reason Start Date Expiration Date Visits Requested Visits Authorized [id number] Authorized Auto-Generat ed Referral 12/10/2023 2 1 [facility] for visit Narrative* Diagnostic Procedure Only (Routine) - Closed Specialty Diagnoses / Procedures Referred By Contac t Referred To Contact [facility] Diagnoses Monochorionic diamniotic twin , antepartum Supervision of other high risk pregnancies, second trimester Procedures OBSTETRIC ULTRASOUND WHI US PREG UTERUS AFTER 1ST TRIMEST GESTATION Chapincito Zavala MD [address] [place] [address] [address] Referral ID Status Reason Start Date Expiration Date V isits Requested Visits Authorized [id number] Closed Auto-Generate d Referral 09/15/2022 09/15/2023 1 1 [facility] for visit Narrative* Diagnostic Procedure Only (Routine) - Closed Specialty Diagnoses / Procedures Referred By Sylvester hernandez Referred To Contact [facility] Diagnoses Monochorionic diamniotic twin gestation in third trimester Procedures OBSTETRIC ULTRASOUND WHI US PREG UTERUS AFTER 1ST TRIMEST GESTATION Kimani Núñez MD [address] [place] [address] [facility] [address] [place] [address] Referral ID Status Reason Start Date Expiration Date V isits Requested Visits Authorized [id number] Closed Auto-Generate d Referral 12/10/2022 12/10/2023 2 1 [place] Summary Purpose Family History No Family History Records FoundNo Family History Records FoundNo Family History Records FoundNo Family History Records FoundNo Family History Records FoundNo Family History Records FoundNo Family History Records FoundNo Family History Records FoundNo Family History Records Found Advance Directives No Advanced Directives Records FoundDocuments on File Type Date Recorded Patient Fiber Picker 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 Advance Directive(s) 05/13/2021 1:53 PM Advance Directive(s) 03/02/2019 4:46 PM Advance Directive(s) 04/06/2018 9:17 AM Advance Directive(s) 01/26/2018 10:31 AM Advance Directive(s) 10/07/2017 5:53 PM Advance Directive(s) 08/06/2017 12:10 AM Documents on File Type Date Recorded Patient Fiber Picker 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 Advance Directive(s) 05/13/2021 1:53 PM Advance Directive(s) 03/02/2019 4:46 PM Advance Directive(s) 04/06/2018 9:17 AM Advance Directive(s) 01/26/2018 10:31 AM Advance Directive(s) 10/07/2017 5:53 PM Advance Directive(s) 08/06/2017 12:10 AM Health Concerns Problem Noted Date [facility] - [facility] 06/22 [place] - [place] 07/10/2022 Problem Noted Date [facility] - [facility] 06/22 [place] - [place] 07/10/2022 Problem Noted Date [facility] - [facility] 06/22 [place] - [place] 07/10/2022 Problem Noted Date [facility] - [facility] 06/22 [place] - [place] 07/10/2022 Problem Noted Date Diagnosed Date [facility] - [facility] 07/10/2022 [place] - [place] 07/10/2022 Problem Noted Date Diagnosed Date [facility] - [facility] 07/10/2022 [place] - [place] 07/10/2022 Problem Noted Date Diagnosed Date [facility] - [facility] 07/10/2022 [place] - [place] 07/10/2022 Problem Noted Date Diagnosed Date [facility] - [facility] 07/10/2022 [place] - [place] 07/10/2022 Problem Noted Date Diagnosed Date [facility] - [facility] 07/10/2022 [place] - [place] 07/10/2022 Problem Noted Date Diagnosed Date [facility] - [facility] 07/10/2022 [place] - [place] 07/10/2022 Problem Noted Date Diagnosed Date [facility] - [facility] 07/10/2022 [place] - [place] 07/10/2022 Problem Noted Date Diagnosed Date [facility] - [facility] 07/10/2022 [place] - [place] 07/10/2022 Problem Noted Date Diagnosed Date [facility] - [facility] 07/10/2022 [place] - [place] 07/10/2022 Problem Noted Date Diagnosed Date [facility] - [facility] 07/10/2022 [place] - [place] 07/10/2022 Problem Noted Date Diagnosed Date [facility] - [facility] 07/10/2022 [place] - [place] 07/10/2022 Problem Noted Date Diagnosed Date [facility] - [facility] 07/10/2022 [place] - [place] 07/10/2022 Problem Noted Date Diagnosed Date [facility] - [facility] 07/10/2022 [place] - [place] 07/10/2022 Problem Noted Date Diagnosed Date [facility] - [facility] 07/10/2022 [place] - [place] 07/10/2022 Problem Noted Date Diagnosed Date [facility] - [facility] 07/10/2022 [place] - [place] 07/10/2022 Problem Noted Date Diagnosed Date [facility] - [facility] 07/10/2022 [place] - [place] 07/10/2022 Problem Noted Date Diagnosed Date [facility] - [facility] 07/10/2022 [place] - [place] 07/10/2022 Problem Noted Date Diagnosed Date [facility] - [facility] 07/10/2022 [place] - [place] 07/10/2022 Problem Noted Date Diagnosed Date [facility] - [facility] 07/10/2022 [place] - [place] 07/10/2022 Problem Noted Date Diagnosed Date [facility] - [facility] 07/10/2022 [place] - [place] 07/10/2022 Problem Noted Date Diagnosed Date [facility] - [facility] 07/10/2022 [place] - [place] 07/10/2022 Additional Source Comments INFORMATION SOURCE (unrecogn ized section and content) DATE CREATED AUTHOR AUTHOR'S ORGANIZ ATION 08/23/2017 [facility] DATE CREATED AUTHOR AUTHOR'S ORGANIZ ATION 09/12/[address] [facility] DATE CREATED AUTHOR AUTHOR'S ORGANIZ ATION 12/02/2018 [facility] DATE CREATED AUTHOR AUTHOR'S ORGANIZ ATION 06/18/2021 [facility] DATE CREATED AUTHOR AUTHOR'S ORGANIZ ATION 06/26/2022 [facility] DATE CREATED AUTHOR AUTHOR'S ORGANIZ ATION 10/07/2022 [facility] DATE CREATED AUTHOR AUTHOR'S ORGANIZ ATION 01/03/2023 [facility] DATE CREATED AUTHOR AUTHOR'S ORGANIZ ATION 03/27/2023 [facility] Source Comments (unrecognize d section and content) In the event this informatio n is protected by the Federal Confidentiality of Alcohol and Drug Abuse Patient Records regulations: The Federal rules restrict any use of the information to criminally investigate or prosecute any alcohol or drug abuse patient.[place] the event this information is protected by the Federal Confidentiality of Alcohol and Drug Abuse Patient Records regulations: The Federal rules restrict any use of the information to criminally investigate or prosecute any alcohol or drug abuse patient.[place] the event this information is protected by the Federal Confidentiality of Alcohol and Drug Abuse Patient Records regulations: The Federal rules restrict any use of the information to criminally investigate or prosecute any alcohol or drug abuse patient.[place] the event this information is protected by the Federal Confidentiality of Alcohol and Drug Abuse Patient Records regulations: The Federal rules restrict any use of the information to criminally investigate or prosecute any alcohol or drug abuse patient.[place] the event this information is protected by the Federal Confidentiality of Alcohol and Drug Abuse Patient Records regulations: The Federal rules restrict any use of the information to criminally investigate or prosecute any alcohol or drug abuse patient.[place]ervilleIn the event this information is protected by the Federal Confidentiality of Alcohol and Drug Abuse Patient Records regulations: The Federal rules restrict any use of the information to criminally investigate or prosecute any alcohol or drug abuse patient.[place]ervilleIn the event this information is protected by the Federal Confidentiality of Alcohol and Drug Abuse Patient Records regulations: The Federal rules restrict any use of the information to criminally investigate or prosecute any alcohol or drug abuse patient.[place]ervilleIn the event this information is protected by the Federal Confidentiality of Alcohol and Drug Abuse Patient Records regulations: The Federal rules restrict any use of the information to criminally investigate or prosecute any alcohol or drug abuse patient.[place]ervilleIn the event this information is protected by the Federal Confidentiality of Alcohol and Drug Abuse Patient Records regulations: The Federal rules restrict any use of the information to criminally investigate or prosecute any alcohol or drug abuse patient.[place]ervilleIn the event this information is protected by the Federal Confidentiality of Alcohol and Drug Abuse Patient Records regulations: The Federal rules restrict any use of the information to criminally investigate or prosecute any alcohol or drug abuse patient.[place]ervilleIn the event this information is protected by the Federal Confidentiality of Alcohol and Drug Abuse Patient Records regulations: The Federal rules restrict any use of the information to criminally investigate or prosecute any alcohol or drug abuse patient.[place]ervilleIn the event this information is protected by the Federal Confidentiality of Alcohol and Drug Abuse Patient Records regulations: The Federal rules restrict any use of the information to criminally investigate or prosecute any alcohol or drug abuse patient.[place]ervilleIn the event this information is protected by the Federal Confidentiality of Alcohol and Drug Abuse Patient Records regulations: The Federal rules restrict any use of the information to criminally investigate or prosecute any alcohol or drug abuse patient.[place]ervilleIn the event this information is protected by the Federal Confidentiality of Alcohol and Drug Abuse Patient Records regulations: The Federal rules restrict any use of the information to criminally investigate or prosecute any alcohol or drug abuse patient.[place]ervilleIn the event this information is protected by the Federal Confidentiality of Alcohol and Drug Abuse Patient Records regulations: The Federal rules restrict any use of the information to criminally investigate or prosecute any alcohol or drug abuse patient.[place]ervilleIn the event this information is protected by the Federal Confidentiality of Alcohol and Drug Abuse Patient Records regulations: The Federal rules restrict any use of the information to criminally investigate or prosecute any alcohol or drug abuse patient.[place]ervilleIn the event this information is protected by the Federal Confidentiality of Alcohol and Drug Abuse Patient Records regulations: The Federal rules restrict any use of the information to criminally investigate or prosecute any alcohol or drug abuse patient.[place]ervilleIn the event this information is protected by the Federal Confidentiality of Alcohol and Drug Abuse Patient Records regulations: The Federal rules restrict any use of the information to criminally investigate or prosecute any alcohol or drug abuse patient.[place]ervilleIn the event this information is protected by the Federal Confidentiality of Alcohol and Drug Abuse Patient Records regulations: The Federal rules restrict any use of the information to criminally investigate or prosecute any alcohol or drug abuse patient.[place]ervilleIn the event this information is protected by the Federal Confidentiality of Alcohol and Drug Abuse Patient Records regulations: The Federal rules restrict any use of the information to criminally investigate or prosecute any alcohol or drug abuse patient.[place]ervilleIn the event this information is protected by the Federal Confidentiality of Alcohol and Drug Abuse Patient Records regulations: The Federal rules restrict any use of the information to criminally investigate or prosecute any alcohol or drug abuse patient.[place]ervilleIn the event this information is protected by the Federal Confidentiality of Alcohol and Drug Abuse Patient Records regulations: The Federal rules restrict any use of the information to criminally investigate or prosecute any alcohol or drug abuse patient.[place]ervilleIn the event this information is protected by the Federal Confidentiality of Alcohol and Drug Abuse Patient Records regulations: The Federal rules restrict any use of the information to criminally investigate or prosecute any alcohol or drug abuse patient.[place]ervilleIn the event this information is protected by the Federal Confidentiality of Alcohol and Drug Abuse Patient Records regulations: The Federal rules restrict any use of the information to criminally investigate or prosecute any alcohol or drug abuse patient.[place]ervilleIn the event this information is protected by the Federal Confidentiality of Alcohol and Drug Abuse Patient Records regulations: The Federal rules restrict any use of the information to criminally investigate or prosecute any alcohol or drug abuse patient.[place]ervilleIn the event this information is protected by the Federal Confidentiality of Alcohol and Drug Abuse Patient Records regulations: The Federal rules restrict any use of the information to criminally investigate or prosecute any alcohol or drug abuse patient.[place]ervilleIn the event this information is protected by the Federal Confidentiality of Alcohol and Drug Abuse Patient Records regulations: The Federal rules restrict any use of the information to criminally investigate or prosecute any alcohol or drug abuse patient.[place]ervilleIn the event this information is protected by the Federal Confidentiality of Alcohol and Drug Abuse Patient Records regulations: The Federal rules restrict any use of the information to criminally investigate or prosecute any alcohol or drug abuse patient.[place]ervilleIn the event this information is protected by the Federal Confidentiality of Alcohol and Drug Abuse Patient Records regulations: The Federal rules restrict any use of the information to criminally investigate or prosecute any alcohol or drug abuse patient.[place]ervilleIn the event this information is protected by the Federal Confidentiality of Alcohol and Drug Abuse Patient Records regulations: The Federal rules restrict any use of the information to criminally investigate or prosecute any alcohol or drug abuse patient.[place]ervilleIn the event this information is protected by the Federal Confidentiality of Alcohol and Drug Abuse Patient Records regulations: The Federal rules restrict any use of the information to criminally investigate or prosecute any alcohol or drug abuse patient.[place]ervilleIn the event this information is protected by the Federal Confidentiality of Alcohol and Drug Abuse Patient Records regulations: The Federal rules restrict any use of the information to criminally investigate or prosecute any alcohol or drug abuse patient.[place]ervilleIn the event this information is protected by the Federal Confidentiality of Alcohol and Drug Abuse Patient Records regulations: The Federal rules restrict any use of the information to criminally investigate or prosecute any alcohol or drug abuse patient.[place]ervilleIn the event this information is protected by the Federal Confidentiality of Alcohol and Drug Abuse Patient Records regulations: The Federal rules restrict any use of the information to criminally investigate or prosecute any alcohol or drug abuse patient.[place]ervilleIn the event this information is protected by the Federal Confidentiality of Alcohol and Drug Abuse Patient Records regulations: The Federal rules restrict any use of the information to criminally investigate or prosecute any alcohol or drug abuse patient.[place]ervilleIn the event this information is protected by the Federal Confidentiality of Alcohol and Drug Abuse Patient Records regulations: The Federal rules restrict any use of the information to criminally investigate or prosecute any alcohol or drug abuse patient.[place]ervilleIn the event this information is protected by the Federal Confidentiality of Alcohol and Drug Abuse Patient Records regulations: The Federal rules restrict any use of the information to criminally investigate or prosecute any alcohol or drug abuse patient.[place]ervilleIn the event this information is protected by the Federal Confidentiality of Alcohol and Drug Abuse Patient Records regulations: The Federal rules restrict any use of the information to criminally investigate or prosecute any alcohol or drug abuse patient.[place]ervilleIn the event this information is protected by the Federal Confidentiality of Alcohol and Drug Abuse Patient Records regulations: The Federal rules restrict any use of the information to criminally investigate or prosecute any alcohol or drug abuse patient.[place]ervilleIn the event this information is protected by the Federal Confidentiality of Alcohol and Drug Abuse Patient Records regulations: The Federal rules restrict any use of the information to criminally investigate or prosecute any alcohol or drug abuse patient.[place]ervilleIn the event this information is protected by the Federal Confidentiality of Alcohol and Drug Abuse Patient Records regulations: The Federal rules restrict any use of the information to criminally investigate or prosecute any alcohol or drug abuse patient.[place]ervilleIn the event this information is protected by the Federal Confidentiality of Alcohol and Drug Abuse Patient Records regulations: The Federal rules restrict any use of the information to criminally investigate or prosecute any alcohol or drug abuse patient.[place]In the event this information is protected by the Federal Confidentiality of Alcohol and Drug Abuse Patient Records regulations: The Federal rules restrict any use of the information to criminally investigate or prosecute any alcohol or drug abuse patient.[place]ervilleIn the event this information is protected by the Federal Confidentiality of Alcohol and Drug Abuse Patient Records regulations: The Federal rules restrict any use of the information to criminally investigate or prosecute any alcohol or drug abuse patient.[place]ervilleIn the event this information is protected by the Federal Confidentiality of Alcohol and Drug Abuse Patient Records regulations: The Federal rules restrict any use of the information to criminally investigate or prosecute any alcohol or drug abuse patient.[place]ervilleIn the event this information is protected by the Federal Confidentiality of Alcohol and Drug Abuse Patient Records regulations: The Federal rules restrict any use of the information to criminally investigate or prosecute any alcohol or drug abuse patient.[place]In the event this information is protected by the Federal Confidentiality of Alcohol and Drug Abuse Patient Records regulations: The Federal rules restrict any use of the information to criminally investigate or prosecute any alcohol or drug abuse patient.[place]In the event this information is protected by the Federal Confidentiality of Alcohol and Drug Abuse Patient Records regulations: The Federal rules restrict any use of the information to criminally investigate or prosecute any alcohol or drug abuse patient.[place]ervilleIn the event this information is protected by the Federal Confidentiality of Alcohol and Drug Abuse Patient Records regulations: The Federal rules restrict any use of the information to criminally investigate or prosecute any alcohol or drug abuse patient.[place]In the event this information is protected by the Federal Confidentiality of Alcohol and Drug Abuse Patient Records regulations: The Federal rules restrict any use of the information to criminally investigate or prosecute any alcohol or drug abuse patient.[place]In the event this information is protected by the Federal Confidentiality of Alcohol and Drug Abuse Patient Records regulations: The Federal rules restrict any use of the information to criminally investigate or prosecute any alcohol or drug abuse patient.[place]In the event this information is protected by the Federal Confidentiality of Alcohol and Drug Abuse Patient Records regulations: The Federal rules restrict any use of the information to criminally investigate or prosecute any alcohol or drug abuse patient.[place]In the event this information is protected by the Federal Confidentiality of Alcohol and Drug Abuse Patient Records regulations: The Federal rules restrict any use of the information to criminally investigate or prosecute any alcohol or drug abuse patient.[place]ervilleIn the event this information is protected by the Federal Confidentiality of Alcohol and Drug Abuse Patient Records regulations: The Federal rules restrict any use of the information to criminally investigate or prosecute any alcohol or drug abuse patient.[place]In the event this information is protected by the Federal Confidentiality of Alcohol and Drug Abuse Patient Records regulations: The Federal rules restrict any use of the information to criminally investigate or prosecute any alcohol or drug abuse patient.[place]In the event this information is protected by the Federal Confidentiality of Alcohol and Drug Abuse Patient Records regulations: The Federal rules restrict any use of the information to criminally investigate or prosecute any alcohol or drug abuse patient.[place]In the event this information is protected by the Federal Confidentiality of Alcohol and Drug Abuse Patient Records regulations: The Federal rules restrict any use of the information to criminally investigate or prosecute any alcohol or drug abuse patient.[place]In the event this information is protected by the Federal Confidentiality of Alcohol and Drug Abuse Patient Records regulations: The Federal rules restrict any use of the information to criminally investigate or prosecute any alcohol or drug abuse patient.[place]In the event this information is protected by the Federal Confidentiality of Alcohol and Drug Abuse Patient Records regulations: The Federal rules restrict any use of the information to criminally investigate or prosecute any alcohol or drug abuse patient.[place]In the event this information is protected by the Federal Confidentiality of Alcohol and Drug Abuse Patient Records regulations: The Federal rules restrict any use of the information to criminally investigate or prosecute any alcohol or drug abuse patient.[place]In the event this information is protected by the Federal Confidentiality of Alcohol and Drug Abuse Patient Records regulations: The Federal rules restrict any use of the information to criminally investigate or prosecute any alcohol or drug abuse patient.[place]In the event this information is protected by the Federal Confidentiality of Alcohol and Drug Abuse Patient Records regulations: The Federal rules restrict any use of the information to criminally investigate or prosecute any alcohol or drug abuse patient.[place]In the event this information is protected by the Federal Confidentiality of Alcohol and Drug Abuse Patient Records regulations: The Federal rules restrict any use of the information to criminally investigate or prosecute any alcohol or drug abuse patient.[place]In the event this information is protected by the Federal Confidentiality of Alcohol and Drug Abuse Patient Records regulations: The Federal rules restrict any use of the information to criminally investigate or prosecute any alcohol or drug abuse patient.[place]In the event this information is protected by the Federal Confidentiality of Alcohol and Drug Abuse Patient Records regulations: The Federal rules restrict any use of the information to criminally investigate or prosecute any alcohol or drug abuse patient.[place]In the event this information is protected by the Federal Confidentiality of Alcohol and Drug Abuse Patient Records regulations: The Federal rules restrict any use of the information to criminally investigate or prosecute any alcohol or drug abuse patient.[place]In the event this information is protected by the Federal Confidentiality of Alcohol and Drug Abuse Patient Records regulations: The Federal rules restrict any use of the information to criminally investigate or prosecute any alcohol or drug abuse patient.[place]In the event this information is protected by the Federal Confidentiality of Alcohol and Drug Abuse Patient Records regulations: The Federal rules restrict any use of the information to criminally investigate or prosecute any alcohol or drug abuse patient.[place]ervilleIn the event this information is protected by the Federal Confidentiality of Alcohol and Drug Abuse Patient Records regulations: The Federal rules restrict any use of the information to criminally investigate or prosecute any alcohol or drug abuse patient.[place] Reason for Visit (unrecogniz ed section and content) Specialty Diagnoses / Procedures Referred By Sylvester t Referred To Contact [facility] Diagnoses 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 [address] [facility] [address] [place] [address] Referral ID Status Reason Start Date Expiration Date V isits Requested Visits Authorized [id number] Closed Auto-Generate d Referral 10/14/2022 10/14/2023 12 1 Specialty Diagnoses / Procedures Referred By Contac t Referred To Contact Diagnoses Threatened labor, third trimester Procedures NA [address] [place] [address] Referral ID Status Reason Start Date Expiration Date Visits Re quested Visits Authorized [id number] 1 1 Specialty Diagnoses / Procedures Referred By Contac t Referred To Contact [facility] Diagnoses Encounter for follow-up ultrasound of anatomy Procedures OBSTETRIC ULTRASOUND WHI US PREG UTERUS AFTER 1ST TRIMEST GESTATION Yuliana Carlos MD [address] [facility] [place] [address] [address] Referral ID Status Reason Start Date Expiration Date V isits Requested Visits Authorized [id number] Closed Auto-Generate d Referral 08/18/2021 08/18/2022 1 1 Reason Onset Date Comments Care 08/21/2021 Specialty Diagnoses / Procedures Referred By Contac t Referred To Contact [employer] Diagnoses OB appointment Procedures ob apppointment and ultrasound Yuliana Carlos MD [address] [place] [address] [employer] [address] [place] [address] Referral ID Status Reason Start Date Expiration Date V isits Requested Visits Authorized [id number] Closed Patient Cleared - Qualified 100% FAS 07/24/2021 10/22/2021 99 99 Reason Onset Date Comments Care 07/24/2021 Referral ID Status Reason Start Date Expiration Date Visits Requested Visits Authorized [id number] Authorized Patient Cleared - Qualified 100% FAS 07/24/2021 10/22/2021 99 99 Reason Onset Date Comments Care 06/05/2021 Specialty Diagnoses / Procedures Referred By Contac t Referred To Contact [facility] Diagnoses Supervision of other normal , antepartum Procedures NUCHAL TRANSLUCENCY WHI US NUCHAL TRANSLUCENCY 1ST GESTATION Kimani Núñez MD [address] [place] [address] [facility] [employer] [place] [address] Referral ID Status Reason Start Date Expiration Date V isits Requested Visits Authorized [id number] Closed Auto-Generate d Referral 05/01/2021 05/01/2022 1 1 Reason Comments OB Fainting Episode Reason Onset Date Comments Care 07/03/2021 Reason Comments Orders Reason Onset Date Comments Care 09/18/2021 Reason Comments Question (OB Question) Reason Onset Date Comments Care 10/02/2021 Specialty Diagnoses / Procedures Referred By Contac t Referred To Contact [facility] Diagnoses 29 weeks gestation of Procedures OBSTETRIC ULTRASOUND WHI US PREG UTERUS AFTER 1ST TRIMEST GESTATION Pam Yarbrough APRN.CN [address] [place] [address] [facility] [place] [address] Referral ID Status Reason Start Date Expiration Date V isits Requested Visits Authorized [id number] Closed Auto-Generate d Referral 10/02/2021 10/02/2022 1 1 Reason Onset Date Comments Care 10/16/2021 Specialty Diagnoses / Procedures Referred By Contac t Referred To Contact [facility] Diagnoses 31 weeks gestation of Poor growth affecting management of mother in first trimester, single or unspecified fetus Procedures OBSTETRIC ULTRASOUND WHI US PREG UTERUS AFTER 1ST TRIMEST GESTATION Kimani Núñez MD [address] [place] [address] [address] Referral ID Status Reason Start Date Expiration Date V isits Requested Visits Authorized [id number] Closed Auto-Generate d Referral 10/16/2021 10/16/2022 1 1 Reason Onset Date Comments Care 10/30/2021 Specialty Diagnoses / Procedures Referred By Contac t Referred To Contact [facility] Diagnoses Uterine size-date discrepancy, third trimester Procedures OBSTETRIC ULTRASOUND WHI US PREG UTERUS AFTER 1ST TRIMEST GESTATION Yuliana Carlos MD [address] [facility] [place] [address] [address] Referral ID Status Reason Start Date Expiration Date V isits Requested Visits Authorized [id number] Closed Auto-Generate d Referral 09/18/2021 09/18/2022 1 1 Reason Comments OB-Headache Reason Onset Date Comments Care 11/13/2021 Specialty Diagnoses / Procedures Referred By Contac t Referred To Contact [facility] Diagnoses Poor growth affecting management of mother in third trimester, single or unspecified fetus Procedures BIOPHYSICAL PROFILE US WHI BIOPHYSICAL PROFILE NON-STRESS TESTING Pam Yarbrough APRN.[facility] [address] [place] [address] [facility] [address] [place] [address] Referral ID Status Reason Start Date Expiration Date V isits Requested Visits Authorized [id number] Closed Auto-Generate d Referral 11/05/2021 11/05/2022 5 [...] Referred By Contac t Referred To Contact [facility] Diagnoses 13 weeks gestation of Monochorionic diamniotic twin , antepartum Procedures OBSTETRIC ULTRASOUND WHI US PREG UTERUS AFTER 1ST TRIMEST GESTATION Kimani Núñez MD [address] [place] [address] [address] Referral ID Status Reason Start Date Expiration Date V isits Requested Visits Authorized [id number] Closed Auto-Generate d Referral 08/04/2022 08/04/2023 1 1 Reason Comments Trauma Pt reported 17.6 wee k twin gestation scabies exposure. Specialty Diagnoses / Procedures Referred By Sylvester t Referred To Contact [facility] Diagnoses Monochorionic diamniotic twin , antepartum Procedures OBSTETRIC ULTRASOUND WHI US PREG UTERUS AFTER 1ST TRIMEST GESTATION Kimani Núñez MD [address] [place] [address] [address] Referral ID Status Reason Start Date Expiration Date V isits Requested Visits Authorized [id number] Closed Auto-Generate d Referral 08/27/2022 08/27/2023 10 1 Reason Onset Date Comments Care 10/14/2022 Reason Comments Orders Reason Onset Date Comments Care 10/29/2022 Reason Comments Blood management Reason Comments Hematology Reason Comments IV Iron Infusions Reason Onset Date Comments Care 11/12/2022 Reason Comments Benefits Investigation Reason Onset Date Comments Care 11/26/2022 Reason Onset Date Comments Care 12/10/2022 Reason Onset Date Comments Care 12/23/2022 Reason Comments Flu Like Symptoms Headache, fever, bod y aches, lymph nodes swollen x 1 day Care Teams (unrecognized sec tion and content) Rod Buster Relationship Specialty Start Date End Date Meir Nix, FAMILY NURSE.MICROFICHE CAMERA OPERATOR [address], [place] [id number] PCP - General Family Practice 04/26/19 Rod Buster Relationship Specialty Start Date End Date Meir Nix, FAMILY NURSE.MICROFICHE CAMERA OPERATOR [address], [place] [id number] PCP - General Family Practice 04/26/19 Rod Buster Relationship Specialty Start Date End Date BoydMeir, FAMILY NURSE.MICROFICHE CAMERA OPERATOR [address] [place] [address] PCP - General Family Practice 04/26/19 Rod Buster Relationship Specialty Start Date End Date BoydMeir, FAMILY NURSE.MICROFICHE CAMERA OPERATOR [address] [place] [address] PCP - General Family Practice 04/26/19 Rod Buster Relationship Specialty Start Date End Date BoydMeir, FAMILY NURSE.MICROFICHE CAMERA OPERATOR [address] [place] [address] PCP - General Family Practice 04/26/19 Rod Buster Relationship Specialty Start Date End Date BoydMeir, FAMILY NURSE.MICROFICHE CAMERA OPERATOR [address] [place] [address] PCP - General Family Practice 04/26/19 Rod Buster Relationship Specialty Start Date End Date Meir, FAMILY NURSE.MICROFICHE CAMERA OPERATOR [address] [place] [address] PCP - General Family Practice 04/26/19 Rod Buster Relationship Specialty Start Date End Date Meir, FAMILY NURSE.MICROFICHE CAMERA OPERATOR [address] [place] [address] PCP - General Family Practice 04/26/19 Rod Buster Relationship Specialty Start Date End Date BoydMeir, FAMILY NURSE.MICROFICHE CAMERA OPERATOR [address] [place] [address] PCP - General Family Practice 04/26/19 Rod Buster Relationship Specialty Start Date End Date BoydMeir, FAMILY NURSE.MICROFICHE CAMERA OPERATOR [address] [place] [address] PCP - General Family Practice 04/26/19 Rod Buster Relationship Specialty Start Date End Date BoydMeir eddy, FAMILY NURSE.MICROFICHE CAMERA OPERATOR [address] [place] [address] PCP - General Family Practice 04/26/19 Rod Buster Relationship Specialty Start Date End Date BoydMeir, FAMILY NURSE.MICROFICHE CAMERA OPERATOR [address] [place] [address] PCP - General Family Practice 04/26/19 Rod Buster Relationship Specialty Start Date End Date BoydMeir, FAMILY NURSE.MICROFICHE CAMERA OPERATOR [address] [place] [address] PCP - General Family Practice 04/26/19 Rod Buster Relationship Specialty Start Date End Date BoydMeir, FAMILY NURSE.MICROFICHE CAMERA OPERATOR [address] [place] [address] PCP - General Family Medicine 04/26/19 Rod Buster Relationship Specialty Start Date End Date Meir, FAMILY NURSE.MICROFICHE CAMERA OPERATOR [address] [place] [address] PCP - General Family Medicine 04/26/19 Rod Buster Relationship Specialty Start Date End Date BoydMeir, FAMILY NURSE.MICROFICHE CAMERA OPERATOR [address] [place] [address] PCP - General Family Medicine 04/26/19 Rod Buster Relationship Specialty Start Date End Date Meir, FAMILY NURSE.MICROFICHE CAMERA OPERATOR [address] [place] [address] PCP - General Family Medicine 04/26/19 Rod Buster Relationship Specialty Start Date End Date Meir, FAMILY NURSE.MICROFICHE CAMERA OPERATOR [address] [place] [address] PCP - General Family Medicine 04/26/19 Rod Buster Relationship Specialty Start Date End Date BoydMeir, FAMILY NURSE.MICROFICHE CAMERA OPERATOR [address] [place] [address] PCP - General Family Medicine 04/26/19 Rod Buster Relationship Specialty Start Date End Date Meir, FAMILY NURSE.MICROFICHE CAMERA OPERATOR [address] [place] [address] PCP - General Family Medicine 04/26/19 Rod Buster Relationship Specialty Start Date End Date Meir, FAMILY NURSE.MICROFICHE CAMERA OPERATOR [address] [place] [address] PCP - General Family Medicine 04/26/19 Rod Buster Relationship Specialty Start Date End Date Meir, FAMILY NURSE.MICROFICHE CAMERA OPERATOR [address] [place] [address] PCP - General Family Medicine 04/26/19 Rod Buster Relationship Specialty Start Date End Date Meir, FAMILY NURSE.MICROFICHE CAMERA OPERATOR [address] [place] [address] PCP - General Family Medicine 04/26/19 Rod Buster Relationship Specialty Start Date End Date Meir, FAMILY NURSE.MICROFICHE CAMERA OPERATOR [address] [place] [address] PCP - General Family Medicine 04/26/19 Rod Buster Relationship Specialty Start Date End Date BreeMeir, FAMILY NURSE.MICROFICHE CAMERA OPERATOR [address] [place] [address] PCP - General Family Medicine 04/26/19 Rod Buster Relationship Specialty Start Date End Date BoydMeir, FAMILY NURSE.MICROFICHE CAMERA OPERATOR [address] [place] [address] PCP - General Family Medicine 04/26/19 Rod Buster Relationship Specialty Start Date End Date Meir, FAMILY NURSE.MICROFICHE CAMERA OPERATOR [address] [place] [address] PCP - General Family Medicine 04/26/19 Rod Buster Relationship Specialty Start Date End Date [facility], FAMILY NURSE.MICROFICHE CAMERA OPERATOR [address] [place] [address] PCP - General Family Medicine 04/26/19 Rod Buster Relationship Specialty Start Date End Date [facility], FAMILY NURSE.MICROFICHE CAMERA OPERATOR [address] [place] [address] PCP - General Family Medicine 04/26/19 Rod Buster Relationship Specialty Start Date End Date [facility], FAMILY NURSE.MICROFICHE CAMERA OPERATOR [address] [place] [address] PCP - General Family Medicine 04/26/19 Rod Buster Relationship Specialty Start Date End Date [facility], FAMILY NURSE.MICROFICHE CAMERA OPERATOR [address] [place] [address] PCP - General Family Medicine 04/26/19 Rod Buster Relationship Specialty Start Date End Date [facility], FAMILY NURSE.MICROFICHE CAMERA OPERATOR [address] [place] [address] PCP - General Family Medicine 04/26/19 Rod Buster Relationship Specialty Start Date End Date [facility], FAMILY NURSE.MICROFICHE CAMERA OPERATOR [address] [place] [address] PCP - General Family Medicine 04/26/19 Rod Buster Relationship Specialty Start Date End Date [facility], FAMILY NURSE.MICROFICHE CAMERA OPERATOR [address] [place] [address] PCP - General Family Medicine 04/26/19 Rod Buster Relationship Specialty Start Date End Date , FAMILY NURSE.MICROFICHE CAMERA OPERATOR [address] [place] [address] PCP - General Family Medicine 04/26/19 Rod Buster Relationship Specialty Start Date End Date , FAMILY NURSE.MICROFICHE CAMERA OPERATOR [address] [place] [address] PCP - General Family Medicine 04/26/19 Rod Buster Relationship Specialty Start Date End Date , FAMILY NURSE.MICROFICHE CAMERA OPERATOR [address] [place] [address] PCP - General Family Medicine 04/26/19 Rod Buster Relationship Specialty Start Date End Date , FAMILY NURSE.MICROFICHE CAMERA OPERATOR [address] [place] [address] PCP - General Family Medicine 04/26/19 Rod Buster Relationship Specialty Start Date End Date , FAMILY NURSE.MICROFICHE CAMERA OPERATOR [address] [place] [address] PCP - General Family Medicine 04/26/19 Rod Buster Relationship Specialty Start Date End Date , FAMILY NURSE.MICROFICHE CAMERA OPERATOR [address] [place] [address] PCP - General Family Medicine 04/26/19 Rod Buster Relationship Specialty Start Date End Date , FAMILY NURSE.MICROFICHE CAMERA OPERATOR [address] [place] [address] PCP - General Family Medicine 04/26/19 Rod Buster Relationship Specialty Start Date End Date , Meir, FAMILY NURSE.MICROFICHE CAMERA OPERATOR [address] [place] [address] PCP - General Family Medicine 04/26/19 Rod Buster Relationship Specialty Start Date End Date [facility] Meir, FAMILY NURSE.MICROFICHE CAMERA OPERATOR [address] [place] [address] PCP - General Family Medicine 04/26/19 Rod Buster Relationship Specialty Start Date End Date [facility] Meir, FAMILY NURSE.MICROFICHE CAMERA OPERATOR [address] [place] [address] PCP - General Family Medicine 04/26/19 Rod Buster Relationship Specialty Start Date End Date [facility] Meir, FAMILY NURSE.MICROFICHE CAMERA OPERATOR [address] [place] [address] PCP - General Family Medicine 04/26/19 Rod Buster Relationship Specialty Start Date End [facility]ILY NURSE.MICROFICHE CAMERA OPERATOR [address] [place] [address] PCP - General Family Medicine 04/26/19 Rod Buster Relationship Specialty Start Date End Date [facility] Meir, FAMILY NURSE.MICROFICHE CAMERA OPERATOR [address] [place] [address] PCP - General Family Medicine 04/26/19 Rod Buster Relationship Specialty Start Date End Date [facility] Meir, FAMILY NURSE.MICROFICHE CAMERA OPERATOR [address] [place] [address] PCP - General Family Medicine 04/26/19 Rod Buster Relationship Specialty Start Date End Date [facility] Meir, FAMILY NURSE.MICROFICHE CAMERA OPERATOR [address] [place] [address] PCP - General Family Medicine 04/26/19 FOR [...] BE BASED ON THE PRIMARY CLINICAL RECORDS. [facility] [employer] [facility]. provides no warranty or guarantee of the accuracy or completeness of information in this document.
--- NOTE | 2023-03-28 15:36 | EX.ED.DYSGE1 ---
HPI History of Present Illness Chief Complaint: General Illness Informant: patient Narrative Narrative: Patient is a 22-year-old female with no significant past medical history (3 months with twins) presenting back to the emergency room for continued fevers, neck pain and now facial redness and swelling. Patient has started having symptoms of fever and bilateral neck pain as well as mild headache on , 3 days ago. She had a workup including Monospot, CBC, BMP and urinalysis. Did have some fine consistent with dehydration but otherwise was normal. Denies any associated sore throat. Patient notes that she is continue to have fevers she does not take Tylenol or ibuprofen (most recently 102 last night) but she is also developed now swelling and redness over her forehead, temples and down the left side of her neck. Left side of her neck is the area that is most painful. Denies any pets at home. Denies any bites including scratches from cats or recent tick bites in the last year. Last had ibuprofen at noon today. Denies any difficulty swallowing. Given the increased redness and swelling she came back in for further evaluation. [facility] Medical History ADHD Family history of bipolar disorder Family history of congenital cardiac septal defect Family history of drug abuse GBS screening not performed History of pre-term labor depression spontaneous labor with delivery Seizures Sterilization Subchorionic hematoma in first trimester (spontaneous vaginal delivery) Syncope Home Medications docosahexaenoic acid 200 mg capsule ( DHA) 200 mg PO DAILY 11/16/22 [History Last Taken 11/15/22 18:00] cephalexin 500 mg capsule 500 mg PO Q6 7 days #28 CAPSULES 03/28/23 [Rx Last Taken Unknown] Allergy/AdvReac Type Severity Reaction Status Date / Time Penicillins Allergy Rash Verified 03/28/23 14:43 sertraline [From Zoloft] AdvReac Other Verified 03/28/23 14:43 Family History Other Family history of congenital heart defect Patient's father is Social History household members: significant other and children Smoking Status: Never smoker substance use type: does not use ROS ROS ED Constitutional Constitutional ED: Reports chills and fever(s) Eyes Eyes: Denies blurry vision or change in vision ENT ENT ED: Denies ear pain, rhinorrhea or sore throat Cardiovascular Cardiovascular: Denies chest pain or palpitations Respiratory/Chest Respiratory/Chest: Denies cough or dyspnea Gastrointestinal Gastrointestinal: Denies abdominal pain, nausea or vomiting Musculoskeletal Musculoskeletal: Reports myalgias and neck pain Integumentary Reports rash Neurologic Neurologic: Reports headache(s) Psychiatric Psychiatric: Denies anxiety or depression Hematologic/Lymphatic Hematologic/Lymphatic: Denies anemia or easy bleeding EXAM Physical Exam Const Vital Signs: 03/28/23 14:42 03/28/23 14:58 03/28/23 19:05 Temperature 98.2 F Temperature Source Oral Pulse Rate 76 80 Respiratory Rate 16 14 Respiratory Effort Normal Respiratory Pattern Normal Blood Pressure 103/71 Blood Pressure Mean 81 Pulse Ox 99 Oxygen Delivery Method Room Air 03/28/23 20:13 Temperature Temperature Source Pulse Rate 74 Respiratory Rate Respiratory Effort Respiratory Pattern Blood Pressure 104/78 Blood Pressure Mean 86 Pulse Ox Oxygen Delivery Method Positive well nourished and well developed General Appearance ED: well developed and NAD HEENT Reports TM's clear and moist mucous membranes HEENT Narrative: Normal oropharynx. Uvula is midline. No edema of the tonsils or exudate appreciated. Patient has tenderness to palpation with overlying erythema of her bilateral preauricular lymph nodes as well as some mild edema and tenderness of her forehead midline. No periorbital edema appreciated. Mild tenderness posterior to the left ear with associated pagetic streaking down the left side of the neck over the anterior cervical lymph nodes. Negative for trauma Tympanic Membrane ED: Yes TM's clear Eyes PERRL and EOMs intact bilaterally Neck supple and no JVD Neck Narrative: No midline tenderness. No nuchal rigidity with normal range of motion of the neck however patient does have tenderness over the left lateral neck with associated erythema following the distribution of the anterior cervical neck lymph nodes. General: tenderness Chest Wall inspection of chest normal and palpation of chest normal Resp normal respiratory effort and clear to auscultation bilaterally Cardio regular rate and regular rhythm GI normal to inspection, nondistended, normoactive bowel sounds and non-tender Extremity normal to inspection Neuro oriented x3, CN's II-XII intact bilaterally and no sensory deficits noted Sensorium / Orientation: alert Motor Exam: Negative for general weakness Psych mental status grossly normal Skin Skin Narrative: See above, erythema of anterior the bilateral ears and posterior left ear radiating down the lateral left neck. No petechiae or other rash appreciated. MDM MDM MDM Narrative Medical decision making narrative: Patient is evaluated for worsening lymphadenitis with associated lymphangitic streaking and overlying redness now. She appears nontoxic in no acute distress. Her vital signs are normal in the ER however she did have Motrin a couple hours prior to arrival. Differential includes viral syndrome, bacterial lymphadenitis and possible Lemierres syndrome. She does state that she had some type of pharyngitis about 2 weeks ago. Physical exam is not consistent with acute meningitis, peritonsillar abscess or retropharyngeal abscess. Repeat lab work is obtained including a CBC and CMP which is largely normal however she does have a significantly elevated CRP and mildly elevated ESR. Discussed with patient imaging for further evaluation to rule out a deep space abscess versus Lemierre's. CT does not show any acute process. Patient homero hemodynamically stable in the ER. Given a dose of Toradol and started on Keflex (has a documented penicillin allergy). Will also given a dose of Decadron. Patient agreeable this plan of care. Given return precautions ER. Discharged home in stable condition. Lab Data Attestation: I reviewed the patient's lab results. Labs: Laboratory Results - last 24 hr 03/28/23 15:50 WBC 8.0 RBC 4.56 Hgb 12.2 Hct 38.4 MCV 84.2 MCH 26.8 L MCHC 31.8 L RDW Std Deviation 51.5 H RDW Coeff of Pedro 16.6 H Plt Count 182 MPV 10.7 Immature Gran % (Auto) 0.100 Neut % (Auto) 70.9 H Lymph % (Auto) 15.5 L Maury % (Auto) 11.1 H Eos % (Auto) 2.0 Baso % (Auto) 0.4 Absolute Neuts (auto) 5.7 Absolute Lymphs (auto) 1.25 Nucleated RBC % 0 ESR 38 H Sodium 144 Potassium 3.5 Chloride 114 H Carbon Dioxide 28.0 Anion Gap 2 L BUN 12 Creatinine 0.46 L Estim Creat Clear Calc 149.14 Est GFR (MDRD) Af Amer 213 Est GFR (MDRD) Non-Af 176 BUN/Creatinine Ratio 25.9 H Glucose 91 Calcium 9.3 Total Bilirubin 0.70 AST 12 L ALT 22 Alkaline Phosphatase 64 C-React Prot Ext Range 139.00 H Total Protein 7.0 Albumin 3.2 Globulin 3.8 Albumin/Globulin Ratio 0.8 L Serum , Qual NEGATIVE Radiography Diagnostic Testing: Clinical Impression(s) from Imaging Studies Soft Tissue Neck CT 03/28/23 17:11 IMPRESSION: Normal neck CT. Electronically Signed: Chris Hernandez MD at 18:28 EST , Discharge Plan Triage Chief Complaint: General Illness ED Provider: Nanci Carranza Dx/Rx/DC Orders Clinical Impression: Acute febrile illness Instructions: ED ADENITIS Cervical Abx Tx, ED Lymphangitis Prescriptions: New cephalexin 500 mg capsule 500 mg PO Q6 7 Days Qty: 28 0RF No Action DHA 200 mg capsule 200 mg PO DAILY Primary Care Provider: Ai Freeman NP Referrals: Usman Kauffman MD [Med Staff - Active Staff] - As Needed Ai Freeman ADVANCED DEVELOPER, ADVANCED DEVELOPER-C [Primary Care Provider] - Activity Restrictions/Additional Instructions: I suspect you might have infected lymph nodes of your neck which is causing further swelling and inflammation of other lymph nodes. While this could be viral we will put you on antibiotics and give you dose of steroids as well. This condition is called lymphadenitis. Please take antibiotic as prescribed. Continue to alternate ibuprofen and Tylenol. Your blood work did not show signs of an acute inflammation and otherwise is well-appearing. If this does not improve over the next week please either return to the emergency room or follow-up with clinical research director. Disposition Disposition: Home, Self Care Discharge Date/Time: 03/28/23 20:14
[2023-03-28 16:01] LABS: Absolute Lymphocyte Count 1.25 X10^3/uL (0.83-4.51); Absolute Neutrophil Count 5.7 X10^3/uL (2.0-7.7); Basophil# 0.03 X10^3/uL; Basophil% 0.4 % (0-1); Eosinophil# 0.16 X10^3/uL; Hematocrit 38.4 % (37-47); Hemoglobin 12.2 g/dL (12.0-15.0); Lymphocyte # 1.25 X10^3/ul (0.83-4.51); Lymphocyte % 15.5 % (19-41); Mean Corp Hgb Conc 31.8 g/dL (32-36); Mean Corpuscular Hgb 26.8 pg (27.0-32.0); Mean Corpuscular Volume 84.2 fL (81-99); Mean Platelet Vol. 10.7 fl (6.2-12.0); Monocyte# 0.89 X10^3/uL; Monocyte% 11.1 % (0-10); NRBC Flagged by Analyzer 0 % (0-5); Neutrophil % 70.9 % (47-70); Platelet Count 182 K/mm3 (150-450); RBC Distribution Width CV 16.6 % (11.6-14.6); RBC Distribution Width SD 51.5 fl (35.1-43.9); Red Blood Count 4.56 M/mm3 (4.2-5.4)
[2023-03-28 16:11] LABS: Erythrocyte Sedimentation Rate 38 mm/hr (0-30)
[2023-03-28 16:13] LABS: Internal QC Validated? YES +Cl - CLEAR BKGD; Pregnancy, Serum, hCG Quali. NEGATIVE Negative; Record Kit Lot#, Serum Preg. HCG0000718086
[2023-03-28 16:21] LABS: ALB/GLOB Ratio 0.8 RATIO (0.9-2.4); AST(SGOT) 12 U/L (15-37); Alanine Aminotransfer ALT/SGPT 22 U/L (13-56); Albumin, Serum 3.2 g/dL (3.2-5.0); Alkaline Phosphatase 64 U/L (45-117); Anion Gap 2 (5-15); BUN 12 mg/dL (7-18); BUN/Creat Ratio 25.9 RATIO (10-20); Calcium,Total 9.3 mg/dL (8.5-10.1); Chloride 114 mmol/L (98-107); Creatinine, Serum 0.46 mg/dL (0.55-1.02); EST Glomerular Filtration Rate 176 mL/min (>60); Est Glom Filt Rate - Afr Amer 213 mL/min (>60); Estimated Creatinine Clearance 149.14 ml/min; Globulin 3.8 g/dL (2.2-4.2); Glucose 91 mg/dL (74-106); Potassium 3.5 mmol/L (3.5-5.1); Sodium Level 144 mmol/L (136-145)
--- NOTE | 2023-03-28 17:11 | CT_ITS ---
EXAM: CT NECK WITH INTRAVENOUS CONTRAST CLINICAL INDICATION: neck pain, fevers TECHNIQUE: Helically acquired images were obtained of the neck with intravenous contrast. This CT exam was performed using one or more of the following dose reduction techniques: automated exposure control, adjustment of the mA and/or kV according to patient size, and/or use of iterative reconstruction technique. CONTRAST: IV 75mL Isovue-370 RADIATION DOSE: CTDIvol = 8.78 mGy, DLP = 258.96 mGy-cm COMPARISON: No relevant prior studies available. FINDINGS: NASOPHARYNX: Unremarkable. SUPRAHYOID NECK: Unremarkable. Oropharynx, oral cavity, parapharyngeal space and retropharyngeal space are unremarkable. INFRAHYOID NECK: Unremarkable. The larynx, hypopharynx and supraglottis are unremarkable. SUBMANDIBULAR/PAROTID GLANDS: Unremarkable. Glands are normal in size. THYROID: Unremarkable. No enlarged or calcified nodules. BONES/JOINTS: No acute fracture. SOFT TISSUES: Unremarkable. VASCULATURE: No acute findings. LYMPH NODES: Unremarkable. No lymphadenopathy. LUNG APICES: Unremarkable as visualized. CT/Soft Tissue Neck WITH Contrast IMPRESSION: Normal neck CT. Electronically Signed: Chris Hernandez MD at 18:28 EST ,
[2023-03-28 19:05] VITALS: PULSE 80; RESP 14
[2023-03-28] MEDS: Cephalexin 250 MG Capsule 500 MG PO (20:12)
[2023-03-28] MEDS: Ketorolac 15 MG/ML Vial IM (20:12)
[2023-03-28] MEDS: dexAMETHasone 10 MG/ML Vial IV (20:12)
[2023-03-28 20:13] VITALS: BP 104/78; PULSE 74
== END 2023-03-28 20:14 | disposition home or self-care (01) ==
PROVIDERS: Emergency Provider Emergency Medicine; PCP Nurse Practitioner Family; Visit Provider Emergency Medicine
DX: R22.1 Localized swelling, mass and lump, neck (principal); M54.2 Cervicalgia; R79.82 Elevated C-reactive protein (CRP); R50.9 Fever, unspecified; R51.9 Headache, unspecified; I88.9 Nonspecific lymphadenitis, unspecified
CPT/HCPCS: 70491; 80053; 84703; 85025; 85652; 86140; 96372; 96374; 99283; Q9967; A4216